=== PATIENT | female | born 2005 | race Caucasian/White ===

== ENCOUNTER 2024-03-24 01:10 | Emergency (ER) | payer OTHER, SELFPAY ==
[2024-03-24 01:13] VITALS: BP 145/86; PULSE 113; TEMP 36.6; O2SAT 99; BMI 20.7
[2024-03-24 01:18] VITALS: BP 145/86; O2SAT 100
--- NOTE | 2024-03-24 01:20 | ECG_ITS ---
The [facility] Test Date: 2024-03-24 Pat Name: TRAVON RODRIGUEZ Department: Room: - Gender: Female Transitional Care Manager: : 2005 Requested By: Jb Miller Order Number: [id number] Reading MD: GWENDOLYN MAS Measurements Intervals [place] Rate: 116 P: 80 TN: 132 QRS: 93 QRSD: 80 T: -50 QT: 334 QTc: 403 Interpretive Statements 1120 Sinus tachycardia [address] depression, can't exclude myocardial ischemia Electronically Signed On 03-24-2024 7:46:01 EST by GWENDOLYN MAS
[2024-03-24 01:30] VITALS: PULSE 115
--- NOTE | 2024-03-24 01:42 | ED_ITS ---
HPI HPI - General Adult General Chief complaint: Anxiety Stated complaint: chest pain Time Seen by Provider: 03/24/24 01:17 Source: patient Mode of arrival: walk-in Limitations: no limitations History of Present Illness HPI narrative: pt complains of chest pain and palpitations that began tonight. No known inciting event. No current fever or vomiting. She is currently on Cipro for UTI and pyelonephritis - she said that her urinary symptms are almost completely resolved. She has no cough or cold symptoms. No neck pain, back pain or abdominal pain. She takes Abilify daily and hydroxyzine as needed. Related Data Home Medications ?Medication ?Instructions ?Recorded ?Confirmed aripiprazole 5 mg tablet 5 mg PO DAILY 03/24/24 03/24/24 Allergies Allergy/AdvReac Type Severity Reaction Status Date / Time No Known Drug Allergies Allergy Verified 03/24/24 01:19 Opioid HPI Opioid Management Most Recent Opioid Data: No Data to Display Exam Narrative Exam Narrative: Nurses notes and vital signs reviewed and patient is not hypoxic. afebrile General: Very anxious. Skin: Warm, dry, no pallor noted. No rash. Eye: Pupils are equal, round and EOMI. No scleral icterus. Ears, Nose, Mouth, and Throat: Oral mucosa is moist Cardiovascular: Tachycardic. Respiratory: No accessory muscle use or respiratory distress. Lungs are clear to auscultation, no wheezing, rales or rhonchi Chest wall: No tenderness, crepitus or subcutaneous emphysema Back: No CVA tenderness Musculoskeletal: normal ROM, no calf or popliteal tenderness, no lower extremity edema/swelling GI: Abdomen is soft, non-distended. Normal bowel sounds. No masses appreciated. No tenderness to palpation. No rebound, guarding, or rigidity noted. Neurological: A&O x4. No cranial nerve dysfunction observed. No truncal ataxia. Moves all extremities. Sensation intact. Psychiatric: Cooperative and interactive. Normal mood and affect. Constitutional Vital Signs, click to edit/add: Last Vital Signs Temp 98 F 03/24/24 01:13 Pulse 113 H 03/24/24 01:13 Resp 18 03/24/24 01:13 BP 145/86 H 03/24/24 01:13 Pulse Ox 99 03/24/24 01:13 O2 Del Method Room Air 03/24/24 01:13 Course Vital Signs Vital signs: Vital Signs Temperature 98 F 03/24/24 01:13 Pulse Rate 113 H 03/24/24 01:13 Respiratory Rate 18 03/24/24 01:13 Blood Pressure 145/86 H 03/24/24 01:13 Pulse Oximetry 99 03/24/24 01:13 Oxygen Delivery Method Room Air 03/24/24 01:13 Temperature 98 F 03/24/24 01:13 Pulse Rate 113 H 03/24/24 01:13 Respiratory Rate 18 03/24/24 01:13 Blood Pressure 145/86 H 03/24/24 01:13 Pulse Oximetry 99 03/24/24 01:13 Oxygen Delivery Method Room Air 03/24/24 01:13 Medical Decision Making MDM Narrative Medical decision making narrative: Patient was placed on cardiac rehab nurse and EKG obtained. Blood drawn and sent for evaluation. The patient was given IV Zofran and 500 mL normal saline IV fluid bolus. She is also given a dose of oral Xanax. EKG is a sinus tachycardia with rightward axis and some subtle ischemic changes, likely due to the rate. On recheck at 0227 the patient reported resolution of her symptoms. HR remained 88-92. We discussed her symptoms, lab and ekg results and she was given reassurance. Discharged home with encouragement to stay hydrated, eat well and take her anxiolytic as needed. Lab Data Lab results reviewed: Yes I reviewed the patient's lab results Labs: Lab Results 03/24/24 Range/Units 01:38 WBC 10.7 (4.0-11.0) 10^3/uL RBC 4.72 (4.20-5.40) 10^6/uL Hgb 13.9 (12.0-16.0) g/dL Hct 40.1 (36.0-48.0) % MCV 85.0 (81.0-99.0) fL MCH 29.4 (26.7-34.0) pg MCHC 34.7 (29.9-35.2) g/dL RDW 11.8 (11.0-15.0) % Plt Count 370 (150-450) 10^3/uL MPV 9.6 (9.5-13.5) fL Neut % (Auto) 71.7 (43.0-75.0) % Lymph % (Auto) 18.8 L (20.5-60.0) % [place] % (Auto) 6.2 (1.7-12.0) % Eos % (Auto) 2.1 (0.9-7.0) % Baso % (Auto) 1.0 (0.2-2.0) % Neut # (Auto) 7.7 H (1.4-6.5) 10^3/uL Lymph # (Auto) 2.0 (1.2-3.8) 10^3/uL [place] # (Auto) 0.7 (0.3-0.8) 10^3/uL Eos # (Auto) 0.2 (0.0-0.7) 10^3/uL Baso # (Auto) 0.1 (0.0-0.1) 10^3/uL Abs Immat Gran (auto) 0.02 (0.00-0.03) 10^3/uL Imm/Tot Granulo (auto) 0.2 (0.0-0.5) % Sodium 139 (136-145) mmol/L Potassium 3.8 (3.5-5.1) mmol/L Chloride 105 (98-107) mmol/L Carbon Dioxide 19.4 L (21.0-32.0) mmol/L Anion Gap 18.4 BUN 13.0 (7.0-18.0) mg/dL Creatinine 1.19 H (0.55-1.02) mg/dL Est GFR ( Amer) >60 (>=60 mL/min/1.73m^2) Est GFR (Non-Af Amer) 58 L (>=60 mL/min/1.73m^2) BUN/Creatinine Ratio 10.9 Glucose 130 H (74-106) mg/dL Calcium 9.7 (8.5-10.1) mg/dL Total Bilirubin 0.6 (0.2-1.0) mg/dL AST 12 L (15-37) U/L ALT 12 L (14-59) U/L Alkaline Phosphatase 77 (46-116) U/L Total Protein 7.8 (6.4-8.2) g/dL Albumin 4.3 (3.4-5.0) g/dL Globulin 3.5 g/dL Albumin/Globulin Ratio 1.2 Serum HCG, Qual Negative (NEGATIVE) ECG Data Attestation: I personally reviewed and interpreted this ECG as follows: Interpretation: EKG interpretation: Emergency Department physician interpretation. Sinus tachycardia at 116bpm. Rightward axis, nonspecific T wave changes but no ST segment elevation or depression. Discharge Plan Discharge Chief Complaint: Anxiety Clinical Impression: Acute anxiety, Sinus tachycardia Patient Disposition: Home, Self-Care Time of Disposition Decision: 02:28 Prescriptions / Home Meds: No Action aripiprazole 5 mg tablet 5 mg PO DAILY Print Language: Georgian Instructions: Heart Palpitations (ED), Anxiety (ED) Referrals: Physician,Non-Staff, MD [Primary Care Provider] - 1 week
[2024-03-24 01:45] VITALS: PULSE 108
[2024-03-24 01:51] LABS: Basophils Absolute Auto 0.1 10^3/uL (0.0-0.1); Eosinophils Absolute Auto 0.2 10^3/uL (0.0-0.7); Eosinophils Percent Auto 2.1 % (0.9-7.0); Hematocrit 40.1 % (36.0-48.0); Hemoglobin 13.9 g/dL (12.0-16.0); Immature Granulocytes Abs Auto 0.02 10^3/uL (0.00-0.03); Immature Granulocytes Pct Auto 0.2 % (0.0-0.5); Lymphocytes Percent Auto 18.8 % (20.5-60.0); Mean Corpuscular HGB Conc 34.7 g/dL (29.9-35.2); Mean Corpuscular Hemoglobin 29.4 pg (26.7-34.0); Mean Platelet Volume 9.6 fL (9.5-13.5); Monocytes Absolute Auto 0.7 10^3/uL (0.3-0.8); Monocytes Percent Auto 6.2 % (1.7-12.0); Neutrophils Absolute Auto 7.7 10^3/uL (1.4-6.5); Neutrophils Percent Auto 71.7 % (43.0-75.0); Platelet Count 370 10^3/uL (150-450); Red Blood Count 4.72 10^6/uL (4.20-5.40); Red Cell Distribution Width 11.8 % (11.0-15.0); White Blood Count 10.7 10^3/uL (4.0-11.0)
[2024-03-24 01:57] LABS: HCG Qualitative NEGATIVE (NEGATIVE); Internal Control Within Normal Limits
[2024-03-24] MEDS: ALPRAZOLAM 0.5 MG TABLET PO (01:58)
[2024-03-24] MEDS: 0.9 % SODIUM CHLORIDE 500 ML IV (01:58)
[2024-03-24] MEDS: ONDANSETRON PF 4 MG/2 ML VIAL IV (01:58)
[2024-03-24 02:02] VITALS: PULSE 91
[2024-03-24 02:04] LABS: Alanine Aminotransferase 12 U/L (14-59); Albumin Globulin Ratio 1.2; Albumin Level 4.3 g/dL (3.4-5.0); Alkaline Phosphatase 77 U/L (46-116); Anion Gap 18.4; Aspartate Amino Transferase 12 U/L (15-37); BUN Creatinine Ratio 10.9; Bilirubin Total 0.6 mg/dL (0.2-1.0); Calcium 9.7 mg/dL (8.5-10.1); Carbon Dioxide 19.4 mmol/L (21.0-32.0); Chloride 105 mmol/L (98-107); Estimated GFR (African America >60 (>=60 mL/min/1.73m^2); Estimated GFR (Non-African Ame 58 (>=60 mL/min/1.73m^2); Globulin 3.5 g/dL; Glucose 130 mg/dL (74-106); Potassium 3.8 mmol/L (3.5-5.1); Sodium 139 mmol/L (136-145); Total Protein 7.8 g/dL (6.4-8.2)
[2024-03-24 02:15] VITALS: PULSE 87
[2024-03-24 02:31] LABS: D Dimer <0.19 mg/L FEU (<=0.59)
== END 2024-03-24 02:37 | disposition home or self-care (01) ==
PROVIDERS: Emergency Provider Emergency Medicine
DX: F41.9 Anxiety disorder, unspecified (principal); R00.0 Tachycardia, unspecified; Z87.440 Personal history of urinary (tract) infections
CPT/HCPCS: 36415; 80053; 84703; 85025; 85378; 93005; 96374; 99284; J2405

== ENCOUNTER 2024-03-27 19:36 | Emergency (ER) | payer OTHER, SELFPAY ==
[2024-03-27 19:44] VITALS: BP 140/90; PULSE 115; TEMP 37; O2SAT 99; BMI 28.3
[2024-03-27 20:08] LABS: Bilirubin Urine NEGATIVE (NEGATIVE); Blood Urine SMALL (NEGATIVE); Clarity Urine CLEAR (CLEAR); Color Urine LT. YELLOW (YELLOW); Glucose Urine UA NEGATIVE (NEGATIVE); Ketones Urine NEGATIVE (NEGATIVE); Leukocyte Esterase Urine NEGATIVE (NEGATIVE); Nitrite Urine NEGATIVE (NEGATIVE); Protein Urine NEGATIVE (NEG/TRACE); Urobilinogen Urine 0.2 EU/dL (0.2-1.0)
[2024-03-27 20:11] LABS: Urine Microscopic Indicated YES
--- NOTE | 2024-03-27 20:13 | PC.NURSE ---
patient in waiting room became SOB and shaky. Patient has elevated HR of 130. Lung sounds clear. pulse ox 96%.
[2024-03-27 20:19] LABS: Bacteria Urine TRACE #/HPF (NONE SEEN); Mucus Urine NONE SEEN (NONE SEEN); Squamous Epithelial Cell Urine FEW #/LPF (NONE/RARE)
[2024-03-27 20:20] LABS: Cast Seen? NONE SEEN #/LPF (NONE SEEN); Crystals Seen? None Seen #/HPF (None Seen); Urine Culture Indicated NO
--- NOTE | 2024-03-27 20:29 | CT_ITS ---
The [address] [address] Patient Name: TRAVON RODRIGUEZ MRN: [id number] date: 2005 Sex: F Assigned Patient Location: ER Current Patient Location: ER Accession/Order Number: [id number] Exam Date: 03/27/2024 20:57 Report Date: 03/27/2024 21:55 At the request of: ISHAAN MARKER Procedure: CT abdomen pelvis wo con CT ABDOMEN PELVIS WITHOUT CONTRAST HISTORY: Left flank pain. COMPARISON: None. TECHNIQUE: Thin section axial CT images were obtained from the lung bases to the pubis symphysis. This CT exam was performed using one or more of the following dose reduction techniques: Automated exposure control, adjustment of the mA and/or kV according to patient size, or use of iterative reconstruction technique. Thin section coronal and sagittal images were reconstructed from the axial data set. All images were reviewed and interpreted. CONTRAST: None. FINDINGS: Assessment of solid organs, bowel and vasculature is limited without the benefit of IV contrast. LUNG BASES: The lung bases are clear. GE JUNCTION AND STOMACH: Negative. No hiatal hernia. LIVER: Negative. GALLBLADDER AND BILIARY TREE: Normal gallbladder. SPLEEN: Negative. PANCREAS: Negative. ADRENALS: Negative. KIDNEYS AND URETERS: Negative. No urinary tract calculi or hydronephrosis. No renal masses or cysts are evident. SMALL BOWEL: Negative. No enteritis or obstruction. LARGE BOWEL: Scattered mild colonic stool. There may be some scattered diverticulosis. No colitis is seen or bowel distention or obstruction. APPENDIX: No active disease with normal appendix. AORTA: The abdominal aorta is normal size. IVC: Negative. LYMPH NODES: There is no lymphadenopathy. BLADDER: Normal bladder. BONES: Slight convex left curvature of the lower lumbar spine. Osseous structures and joints otherwise normal. COMMENTS: No ascites or free air or loculated fluid. Pelvic structures reproductive organs are unremarkable on this noncontrast study for patient age. CT/CT abdomen pelvis wo con IMPRESSION: 1. No acute findings or abnormality to explain left-sided pain. 2. No urolithiasis or hydronephrosis. These imaging findings do not exclude additional clinically significant abnormalities. This report should be interpreted in the context of clinical information including patient symptoms and available laboratory findings. Follow-up imaging or other interventions may be appropriate, if indicated by your clinical impression. Electronically authenticated by: IDALIA MAKI Date: 03/27/2024 21:55
--- NOTE | 2024-03-27 20:31 | ECG_ITS ---
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
[2024-03-27 20:38] LABS: HCG Qualitative Urine* NEGATIVE (NEGATIVE); Internal Control Within Normal Limits
--- NOTE | 2024-03-27 20:46 | ED_ITS ---
HPI HPI - General Adult General Chief complaint: Chest Pain Stated complaint: FLANK PAIN/FAST HR Time Seen by Provider: 03/27/24 20:06 Source: patient Mode of arrival: walk-in History of Present Illness HPI narrative: This 18-year-old female presents for evaluation of multiple complaints. The patient was recently seen at [facility] and diagnosed with a kidney infection. She was placed on Keflex at that time and did not clinically improve and was then seen at urgent care and placed on Cipro. Since that time she has been having episodes of tachycardia and palpitations. She presents today with p alpitations and left flank pain. She also states there has been some blood in her urine. She recently took Plan B but has had multiple negative test. She was seen in this emergency department recently and had a negative workup. She was tachycardic at that time and referred to outpatient medicine for further evaluation of the tachycardia. She does admit to tobacco use. She has no nausea or vomiting. She denies that she has had any fever but is shaky. Her boyfriend states at times she has spasms of her chest and arms. The patient is from the [facility] but is living locally with her parents at this time due to her medical issues. She admits to some light vaginal discharge but denies any itching or odor. Additionally the patient has been experiencing episodes of diarrhea when she uses the bathroom to urinate. She states it is dark brown in color. She denies any dizziness or syncope. She has no lower extremity pain or swelling. She does admit to tobacco use but denies that she is on control. Related Data Home Medications ?Medication ?Instructions ?Recorded ?Confirmed aripiprazole 5 mg tablet 5 mg PO DAILY 03/24/24 03/24/24 Allergies Allergy/AdvReac Type Severity Reaction Status Date / Time ciprofloxacin (From Cipro) Allergy Unknown Anxiety Verified 03/27/24 19:44 Opioid HPI Opioid Management Most Recent Opioid Data: Last Pain Scale 4 03/27/24 21:33 03/27/24 Review of Systems ROS Status of ROS 10 or more systems reviewed and unremark able except as noted in history and below PFSH PFSH Social History Little interest or pleasure in doing things: not at all Feeling down, depressed, or hopeless: not at all Exam Narrative Exam Narrative: Vital signs and Nursing Notes reviewed: Is afebrile, she is tachycardic with pulse of 115, pressure is mildly elevated, she is not hypoxic with pulse ox of 99% on room air General: Awake, alert, oriented, thin anxious female, no respiratory distress HEENT: Normocephalic atraumatic, mucous membranes are moist and pink, eyes are clear, normal conjunctiva, vision is grossly intact, posterior pharynx is normal in appearance. Chest: Lungs are clear to auscultation with good air entry, there is no wheezing rhonchi or rales appreciated no accessory muscle use, patient is speaking in complete sentences-no chest wall tenderness to palpation CVS: Regular rate and rhythm S1-S2, acute cardiac at 110 on exam no murmurs rubs or gallops, pulses are brisk and equal bilaterally ABD: Soft, nondistended, this in the left lower lumbar region and left lower quadrant of the abdomen without rebound guarding rigidity, no pulsatile masses appreciated Extremities: Moving all extremities, no lower extremity tenderness or swelling noted, negative Homans' sign, pulses are brisk and equal bilaterally Skin: Normal in appearance without rash,pallor, petechiae or purpura Neuro: No focal deficits Psych: anxious, tearful at times, tremulous at times Constitutional Vital Signs, click to edit/add: Last Vital Signs Temp 98.6 F 03/27/24 19:44 Pulse 70 03/27/24 20:50 Resp 23 H 03/27/24 20:50 BP 140/90 03/27/24 19:44 Pulse Ox 99 03/27/24 19:44 O2 Del Method Room Air 03/27/24 19:44 Course Vital Signs Vital signs: Vital Signs Temperature 98.6 F 03/27/24 19:44 Pulse Rate 115 H 03/27/24 19:44 Respiratory Rate 18 03/27/24 19:44 Blood Pressure 140/90 03/27/24 19:44 Pulse Oximetry 99 03/27/24 19:44 Oxygen Delivery Method Room Air 03/27/24 19:44 Temperature 98.6 F 03/27/24 19:44 Pulse Rate 70 03/27/24 20:50 Respiratory Rate 23 H 03/27/24 20:50 Blood Pressure 140/90 03/27/24 19:44 Pulse Oximetry 99 03/27/24 19:44 Oxygen Delivery Method Room Air 03/27/24 19:44 Medical Decision Making MDM Narrative Medical decision making narrative: This 18-year-old female who was seen in this emergency department recently for palpitations presents for reevaluation stating that her heart is beating fast, indeed her pulse was 115 at triage also complaining of left flank pain and diarrhea. She has not had a fever. She recently was treated with for a kidney infection with Keflex which did not work and she was transitioned to Cipro. At her last ER visit several days ago she stated that her urinary symptoms were resolving but today she had recurrent blood in her urine. She was given Xanax for her symptoms while in the emergency department earlier this week which also helped her. She is on Abilify and was also started on Prozac earlier today. The patient's physical exam is benign with some mild tenderness in her left lower flank and left lower quadrant of her abdomen. The patient had recently taken a Plan B. She has had multiple negative test since that time. EKG done upon arrival was a sinus rhythm at 77 bpm with no acute findings. Her urine test was ordered from triage and is negative. Her urine is negative for infection today. She has a normal white count and hemoglobin. She has normal electrolytes. Troponin and D-dimer were also ordered due to her complaint of palpitations with history of tobacco use. These are both normal. Noncontrast CT scan of the abdomen pelvis was ordered to rule out kidney stone or kidney infection and is negative for acute findings. The results of her labs and CT scan were discussed with her. She now feels that her symptoms are likely related to anxiety. We discussed the matization disorder as well as general anxiety disorder. She does have follow-up with a family physician in the [facility]. I encouraged her to rest drink plenty of fluids and return the emergency department as needed for ongoing or worsening symptoms. She will be given a prescription for Bentyl for her diarrhea. Medical Records Medical records reviewed: Yes I reviewed the patient's medical records Lab Data Lab results reviewed: Yes I reviewed the patient's lab results Labs: Lab Results 03/27/24 03/27/24 Range/Units 19:50 21:29 WBC 11.1 H (4.0-11.0) 10^3/uL RBC 4.92 (4.20-5.40) 10^6/uL Hgb 14.5 (12.0-16.0) g/dL Hct 41.9 (36.0-48.0) % MCV 85.2 (81.0-99.0) fL MCH 29.5 (26.7-34.0) pg MCHC 34.6 (29.9-35.2) g/dL RDW 11.7 (11.0-15.0) % Plt Count 311 (150-450) 10^3/uL MPV 9.4 L (9.5-13.5) fL Neut % (Auto) 71.9 (43.0-75.0) % Lymph % (Auto) 19.7 L (20.5-60.0) % [place] % (Auto) 5.1 (1.7-12.0) % Eos % (Auto) 2.1 (0.9-7.0) % Baso % (Auto) 0.9 (0.2-2.0) % Neut # (Auto) 8.0 H (1.4-6.5) 10^3/uL Lymph # (Auto) 2.2 (1.2-3.8) 10^3/uL [place] # (Auto) 0.6 (0.3-0.8) 10^3/uL Eos # (Auto) 0.2 (0.0-0.7) 10^3/uL Baso # (Auto) 0.1 (0.0-0.1) 10^3/uL Abs Immat Gran (auto) 0.03 (0.00-0.03) 10^3/uL Imm/Tot Granulo (auto) 0.3 (0.0-0.5) % D-Dimer <0.19 (<=0.59) mg/L FEU Sodium 141 (136-145) mmol/L Potassium 3.9 (3.5-5.1) mmol/L Chloride 105 (98-107) mmol/L Carbon Dioxide 24.7 (21.0-32.0) mmol/L Anion Gap 15.2 BUN 15.0 (7.0-18.0) mg/dL Creatinine 0.94 (0.55-1.02) mg/dL Est GFR ( Amer) >60 (>=60 mL/min/1.73m^2) Est GFR (Non-Af Amer) >60 (>=60 mL/min/1.73m^2) BUN/Creatinine Ratio 16.0 Glucose 91 (74-106) mg/dL Lactate 1.3 (0.4-2.0) mmol/L Calcium 9.7 (8.5-10.1) mg/dL Total Bilirubin 1.0 (0.2-1.0) mg/dL AST 17 (15-37) U/L ALT 13 L (14-59) U/L Alkaline Phosphatase 70 (46-116) U/L Troponin I High Sens 4.4 (4.0-51.3) pg/mL Total Protein 8.1 (6.4-8.2) g/dL Albumin 4.6 (3.4-5.0) g/dL Globulin 3.5 g/dL Albumin/Globulin Ratio 1.3 Urine Color Lt. yellow (YELLOW) Urine Clarity Clear (CLEAR) Urine pH 6.0 (5.0-9.0) Ur Specific [place] 1.020 (1.005-1.025) Urine Protein Negative (NEG/TRACE) mg/dL Urine Glucose (UA) Negative (NEGATIVE) mg/dL Urine Ketones Negative (NEGATIVE) mg/dL Urine Occult Blood Small A (NEGATIVE) Urine Nitrite Negative (NEGATIVE) Urine Bilirubin Negative (NEGATIVE) Urine Urobilinogen 0.2 (0.2-1.0) EU/dL Ur Leukocyte Esterase Negative (NEGATIVE) Urine RBC 2-5 A (0-2) #/HPF Urine WBC 2-5 A (NONE SEEN) #/HPF Ur Squamous Epith Cells Few A (NONE/RARE) #/LPF Urine Crystals None seen (None Seen) #/HPF Urine Bacteria Trace A (NONE SEEN) #/HPF Urine Casts None seen (NONE SEEN) #/LPF Urine Mucus None seen (NONE SEEN) Ur Culture Indicated? No Urine HCG, Qual Negative (NEGATIVE) ECG Data Attestation: I personally reviewed and interpreted this ECG as follows: (Sinus rhythm at 77 bpm, normal axis, normal intervals, no acute ST segment elevation or T wave inversion) Discharge Plan Discharge Chief Complaint: Chest Pain Clinical Impression: Acute anxiety, Sinus tachycardia, Flank pain, Diarrhea Patient Disposition: Home, Self-Care Time of Disposition Decision: 22:32 Condition: Good Prescriptions / Home Meds: No Action aripiprazole 5 mg tablet 5 mg PO DAILY Print Language: Wallisian Instructions: Acute Diarrhea (ED), Flank Pain (ED), Anxiety (ED) Referrals: Physician,Non-Staff, MD [Primary Care Provider] - 1 week
[2024-03-27 20:49] VITALS: PULSE 76
[2024-03-27 20:50] VITALS: PULSE 70
[2024-03-27 20:54] VITALS: PULSE 99
[2024-03-27 21:33] LABS: Basophils Absolute Auto 0.1 10^3/uL (0.0-0.1); Basophils Percent Auto 0.9 % (0.2-2.0); Eosinophils Absolute Auto 0.2 10^3/uL (0.0-0.7); Eosinophils Percent Auto 2.1 % (0.9-7.0); Hematocrit 41.9 % (36.0-48.0); Hemoglobin 14.5 g/dL (12.0-16.0); Immature Granulocytes Abs Auto 0.03 10^3/uL (0.00-0.03); Immature Granulocytes Pct Auto 0.3 % (0.0-0.5); Lymphocytes Absolute Auto 2.2 10^3/uL (1.2-3.8); Lymphocytes Percent Auto 19.7 % (20.5-60.0); Mean Corpuscular HGB Conc 34.6 g/dL (29.9-35.2); Mean Corpuscular Hemoglobin 29.5 pg (26.7-34.0); Mean Corpuscular Volume 85.2 fL (81.0-99.0); Mean Platelet Volume 9.4 fL (9.5-13.5); Monocytes Absolute Auto 0.6 10^3/uL (0.3-0.8); Monocytes Percent Auto 5.1 % (1.7-12.0); Neutrophils Percent Auto 71.9 % (43.0-75.0); Platelet Count 311 10^3/uL (150-450); Red Blood Count 4.92 10^6/uL (4.20-5.40); Red Cell Distribution Width 11.7 % (11.0-15.0); White Blood Count 11.1 10^3/uL (4.0-11.0)
[2024-03-27] MEDS: KETOROLAC TROMETHAMINE 30 MG/ML VIAL IVP (21:33)
[2024-03-27] MEDS: 0.9 % SODIUM CHLORIDE 1,000 ML 1000 ML IV (21:34)
[2024-03-27 21:49] LABS: Alanine Aminotransferase 13 U/L (14-59); Albumin Globulin Ratio 1.3; Albumin Level 4.6 g/dL (3.4-5.0); Alkaline Phosphatase 70 U/L (46-116); Anion Gap 15.2; Aspartate Amino Transferase 17 U/L (15-37); Calcium 9.7 mg/dL (8.5-10.1); Carbon Dioxide 24.7 mmol/L (21.0-32.0); Chloride 105 mmol/L (98-107); Estimated GFR (African America >60 (>=60 mL/min/1.73m^2); Estimated GFR (Non-African Ame >60 (>=60 mL/min/1.73m^2); Globulin 3.5 g/dL; Glucose 91 mg/dL (74-106); Potassium 3.9 mmol/L (3.5-5.1); Sodium 141 mmol/L (136-145); Total Protein 8.1 g/dL (6.4-8.2)
[2024-03-27 21:51] LABS: D Dimer <0.19 mg/L FEU (<=0.59); Lactate/Lactic Acid 1.3 mmol/L (0.4-2.0)
[2024-03-27 21:52] LABS: Troponin I High Sensitivity 4.4 pg/mL (4.0-51.3)
[2024-03-27 22:27] VITALS: BP 142/84
== END 2024-03-27 22:40 | disposition home or self-care (01) ==
PROVIDERS: Emergency Provider Emergency Medicine
DX: R10.9 Unspecified abdominal pain (principal); R19.7 Diarrhea, unspecified; R00.0 Tachycardia, unspecified; F41.9 Anxiety disorder, unspecified
CPT/HCPCS: 36415; 74176; 80053; 81001; 83605; 84484; 84703; 85025; 85378; 87493; 93005; 96374; 99285; J1885

== ENCOUNTER 2024-04-11 21:51 | Emergency (ER) | payer OTHER, SELFPAY ==
[2024-04-11 21:58] VITALS: BP 151/92; PULSE 87; TEMP 36.7; O2SAT 98; BMI 19.9
--- OUTSIDE RECORDS SUMMARY | 2024-04-11 21:58 | XMS_ITS | CCD ---
Author Organization [facility] [place] [facility] Care Team Providers Care Tablet Repair Name Role Phone AYAAN CASTRO Consulting Unavailable AYAAN CASTRO Admitting Unavailable AYAAN CASTRO Attending Unavailable MISC, DOCTOR Primary Care Unavailable MISC, DOCTOR Admitting Unavailable MISC, DOCTOR Attending Unavailable MISC, DOCTOR Primary Care Unavailable MISC, DOCTOR Consulting Unavailable Required, No Pcp Unavailable Unavailable Edna Worley Unavailable Fred Claire Unavailable Unavailable KAROLYI, MARISSA A Attending Unavailable KAROLYI, MARISSA A Referring Unavailable KAROLYI, MARISSA A Primary Care Unavailable KARKARENI, MARISSA A Referring Unavailable KAROLYI, MARISSA A Primary Care Unavailable JULIUS CASTRO Referring Unavailable Unavailable Primary Care Provider Unavailapple e RONEY ISSA Attending Unavailable Antionette Benitez DO Primary Care Provider ANTIONETTE BENITEZ Referring Unavailable ANTIONETTE BENITEZ Primary Care Unavailable ANTIONETTE BENITEZ Attending Unavailable Allergies Allergy Classification Reported Allergen(s) Allergy Type Date of Onset Reaction(s) Facility (2 sources) Ciprofloxacin; Translations: [CIPROFLOXACIN] Drug Allergy 04-05-2024 Other: See Comments [facility] Medications Current Medications Medication Drug Class(es) Dates Sig (Normalized) Sig (Original) ARIPiprazole 5 mg oral tablet (1 source) Atypical Antipsychotic Start: 04-02-2024 take 1 tablet by mouth once daily at bedtime ARIPiprazole (ABILIFY) 5 mg tablet Take 5 mg by mouth daily at bedtime. 04/02/2024 Active bacitracin 0.5 unt/mg topical ointment (1 source) Start: 12-21-2021 bacitracin 500 units/g topical ointment ; 1 application topically 2 times a day - to Leg Quantity: 1 Refills: 0 Ordered: 21-Dec-2021 Edna Worley Start: 21-Dec-2021 Generic Substitution Allowed cephalexin 500 mg oral capsule (4 sources) Cephalosporin Antibacterial Start: 03-16-2024 End: 03-26-2024 take 1 capsule by mouth four times daily cephalexin (Keflex) 500 MG capsule Take 1 capsule (500 mg) by mouth 4 times daily for 10 days. 40 capsule 03/16/2024 03/26/2024 Active Start: 03-16-2024 End: 03-16-2024 take 500 mg by mouth once 500 mg, Oral, Once, On Sat 1 05/16/23 at 0620, For 1 dose, Suspected Indication (Select all that apply): Urinary Tract Infection FLUoxetine 10 mg oral capsule (2 sources) Serotonin Reuptake Inhibitor Start: 03-27-2024 take 1 capsule by mouth once FLUoxetine (PROZAC) 10 mg capsule Take 1 capsule by mouth every afternoon. 03/27/2024 Active take 3 capsules by mouth once da elieser PROzac 20 mg oral capsule ; 60 milligram(s) orally once a day Quantity: 0 Refills: 0 Ordered: 17-Dec-2021 John Garcia Generic Substitution Allowed hydrOXYzine hydrochloride 25 mg oral tablet (2 sources) Antihistamine take 1 tablet by mouth every twelve hours as needed hydrOXYzine HCl (ATARAX) 25 mg tablet Take 25 mg by mouth two times a day as needed. Active take 1 tablet by maico th twice daily as needed Atarax 50 mg oral tablet ; 50 milligram( s) orally 2 times a day, As Needed Quantity: 0 Refills: 0 Ordered: 17-Dec-2021 John Garcia Status: Discontinued Generic Substitution Allowed mometasone furoate 1 mg/ml topical cream (1 source) Corticosteroid Start: 11-30-2023 mometasone (ELOCON) 0.1 % cream Apply 1 Application to affected area. 11/30/2023 Active Multiple Vitamins with Minerals oral tablet (1 source) Start: 12-21-2021 take 1 tablet by mouth once daily Multiple Vitamins with Minerals oral tablet ; 1 tab(s) orally once a day Quantity: 30 Refills: 0 Ordered: 21-Dec-2021 Edna Worley Start: 21-Dec-2021 Generic Substitution Allowed phenazopyridine hydrochloride 200 mg delayed release oral tablet (4 sources) Start: 03-16-2024 End: 03-19-2024 take 1 tablet by mouth three times daily as needed for muscle spasms phenazopyridine (Pyridium) 200 MG tablet Take 1 tablet (200 mg) by mouth 3 times daily as needed for bladder spasms for up to 3 days. 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] Onset: 11-30-2023 Chronic Anxiety disorders (2 sources) Anxiety disorder, unspecified; Translations: [Anxiety] Onset: 02-26-2016 04-05-2024 Chronic Cardiac dysrhythmias (1 source) Palpitations; Translations: [Palpitations] Onset: 04-05-2024 Episodic Genitourinary symptoms and ill-defined conditions (2 sources) Bacteriuria; Translations: [Other nonspecific findings on examination of urine] 12-17-2021 Episodic Immunizations and screening for infectious disease (3 sources) Encounter for immunization; Translations: [Encounter for screening for human papillomavirus (HPV)] Onset: 11-30-2023 Episodic Miscellaneous mental health disorders (6 sources) Eating disorder, unspecified; Translations: [Eating disorder] Onset: 08-20-2018 12-18-2021 Chronic Mood disorders (3 sources) Depressive disorder; Translations: [Depressive disorder, not elsewhere classified] 12-17-2021 Chronic Mood disorders (1 source) Mood disorders 12-18-2021 Open wounds of extremities (1 source) Laceration of thigh; Translations: [Open wound of hip and thigh, without mention of complication] 12-17-2021 Episodic Other circulatory disease (1 source) Elevated blood-pressure reading, without diagnosis of hypertension; Translations: [Elevated blood pressure reading without diagnosis of hypertension] Onset: 04-05-2024 Episodic Other gastrointestinal disorders (1 source) Acute diarrhea 12-17-2021 Episodic Personality disorders (1 source) Borderline personality disorder; Translations: [Borderline personality disorder] Onset: 04-05-2024 04-05-2024 Chronic Poisoning by other medications and drugs (1 source) Poisoning by unspecified drug or medicinal substance 12-17-2021 Episodic Suicide and intentional self-inflicted injury (4 sources) Poisoning by other drugs, medicaments and biological substances, intentional self-harm, initial encounter; Translations: [PSN OTH RX MED BIO SUBS SF-HRM INIT] Onset: 08-15-2018 Unclassified (2 sources) SA T14.91XA. 12-18-2021 Comment on above: SA T14.91XA. Unclassified (1 source) Laceration of right thigh 12-17-2021 Unclassified (1 source) Eating disorder, unspecified type 12-18-2021 Unclassified (1 source) Rash Onset: 11-30-2023 Urinary tract infections (8 sources) Acute cystitis; Translations: [Acute cystitis with hematuria] Onset: 03-16-2024 03-16-2024 Episodic Past or Other Problems Problem Classification Problem Date Documented Da te Episodic/Chronic Suicide and intentional self-inflicted injury (1 source) Personal history of self-harm; Translations: [PERSONAL HISTORY OF SELF-HARM] Onset: 08-20-2018 Episodic Unclassified (1 source) SA T14.91XA 12-18-2021 Comment on above: SA T14.91XA Results Test Name Value Interpretation Reference Range Facility CBC panel Auto (Bld)on 04-05 Erythrocyte distribution width (RBC) [Ratio] 11.9 % Normal 11.5-15.0 [facility] Comment on above: Order Comment: Speci men Type: BLOOD SPECIMEN Ordering Facility: [facility] Address: [address] [place] [address] Performed By: #### 5 8410-2 #### [facility] CLIA [id number] [address] [place] [address] [place] Hematocrit (Bld) [Volume fraction] 42.5 % Normal 36.0-46.0 [facility] Comment on above: Order Comment: Speci men Type: BLOOD SPECIMEN Ordering Facility: [facility] Address: [address] [place] [address] Performed By: #### 5 8410-2 #### [facility] CLIA [id number] [address] [place] [address] [place] Hemoglobin (Bld) [Mass/Vol] 14.5 g/dL Normal 11.5-15.5 [facility] Comment on above: Order Comment: Speci men Type: BLOOD SPECIMEN Ordering Facility: [facility] Address: [address] [place] [address] Performed By: #### 5 8410-2 #### [facility] CLIA [id number] [address] [place] [address] [place] MCH (RBC) [Entitic mass] 29.5 pg Normal 26.0-34.0 [facility] Comment on above: Order Comment: Speci men Type: BLOOD SPECIMEN Ordering Facility: [facility] Address: [address] [place] [address] Performed By: #### 5 8410-2 #### [facility] CLIA [id number] [address] [place] [address] [place] MCHC (RBC) [Mass/Vol] 34.1 g/dL Normal 30.5-36.0 [facility] Comment on above: Order Comment: Speci men Type: BLOOD SPECIMEN Ordering Facility: [facility] Address: [address] [place] [address] Performed By: #### 5 8410-2 #### [facility] CLIA [id number] [address] [place] [address] [place] MCV (RBC) [Entitic vol] 86.4 fL Normal 80.0-100.0 [facility] Comment on above: Order Comment: Speci men Type: BLOOD SPECIMEN Ordering Facility: [facility] Address: [address] [place] [address] Performed By: #### 5 8410-2 #### [facility] CLIA [id number] [address] [place] [address] [place] Nucleated RBC (Bld) [#/Vol] 10*3/uL Normal <0.01 [facility] Comment on above: Order Comment: Speci men Type: BLOOD SPECIMEN Ordering Facility: [facility] Address: [address] [place] [address] Performed By: #### 5 8410-2 #### [facility] CLIA [id number] [address] [place] [address] [place] Platelet mean volume (Bld) [Entitic vol] 9.9 fL Normal 9.0-12.7 [facility] Comment on above: Order Comment: Speci men Type: BLOOD SPECIMEN Ordering Facility: [facility] Address: [address] [place] [address] Performed By: #### 5 8410-2 #### [facility] CLIA [id number] [address] [place] [address] [place] Platelets (Bld) [#/Vol] 412 10*3/uL High 150-400 [facility] Comment on above: Order Comment: Speci men Type: BLOOD SPECIMEN Ordering Facility: [facility] Address: [address] [place] [address] Performed By: #### 5 8410-2 #### [facility] CLIA [id number] [address] [place] [address] [place] RBC (Bld) [#/Vol] 4.92 10*6/uL Normal 3.90-5.20 [facility] Comment on above: Order Comment: Speci men Type: BLOOD SPECIMEN Ordering Facility: [facility] Address: [address] [place] [address] Performed By: #### 5 8410-2 #### [facility] CLIA [id number] [address] [place] [address] [place] WBC (Bld) [#/Vol] 9.19 10*3/uL Normal 3.70-11.00 [facility] Comment on above: Order Comment: Speci men Type: BLOOD SPECIMEN Ordering Facility: [facility] Address: [address] [place] [address] Performed By: #### 5 8410-2 #### [facility] CLIA [id number] [address] [place] [address] [place] [address] [place] CNPFranny 04-05-2024 CNPN Telephone (FMIUNI) TRAVON STALLWORTH ([id number]) 1 F Date Time Provider Department 04/05/24 ANTIONETTE BENITEZ FMIUNI During your visit today, we recorded the following information about you: Vanda Fritz 04/05/2024 3:49 PM Signed Jen [facility] [address] [facility] office Needing to bee set up with a 48 hour Holter Monitor Please call the patient at the home number confirmed by the office Benjy Gordon 04/08/2024 9:31 AM Signed Called and scheduled patient for 04/10. Allergies As of Date: 04/05/2024 Noted Allergy Reaction CIPROFLOXACIN 04/05/2024 14 - Other: See Comments Comments: Heart palp, hard time breathing, shaking Date Reviewed: Never Reviewed Reason for Visit: Future Appointment [256] Cmt: Holter Monitor Prescriptions as of 04/08/2024 - hydrOXYzine HCl (ATARAX) 25 mg tablet Take 25 mg by mouth two times a day as needed. - FLUoxetine (PROZAC) 10 mg capsule Take 1 capsule by mouth every afternoon. - ARIPiprazole (ABILIFY) 5 mg tablet Take 5 mg by mouth daily at bedtime. - mometasone (ELOCON) 0.1 % cream Apply 1 Application to affected area. Problem List As Of Date 04/05/2024 Noted Resolved Anxiety [F41.9] 02/26/2016 Borderline personality disorder (HCC) [F60.3] 04/05/2024 Encounter Status:Closed by BENJY GORDON on 04/08/24 Normal [facility] Comprehensive metabolic 2000 panelon 04-05-2024 Albumin [Mass/Vol] 5.2 g/dL High 3.9-4.9 [facility] Comment on above: Order Comment: Speci men Type: BLOOD SPECIMEN Ordering Facility: [facility] Address: [address] [place] [address] Performed By: #### 3 024-7, TSHRF, #### [facility] CLIA [id number] [address] [place] [address] [place] ALP [Catalytic activity/Vol] 70 U/L Normal 34-123 [facility] Comment on above: Order Comment: Speci men Type: BLOOD SPECIMEN Ordering Facility: [facility] Address: [address] [place] [address] Performed By: #### 3 024-7, TSHRF, 64686-4 #### [facility] CLIA [id number] [address] [place] [address] [place] ALT [Catalytic activity/Vol] 12 U/L Normal 7-38 [facility] Comment on above: Order Comment: Speci men Type: BLOOD SPECIMEN Ordering Facility: [facility] Address: [address] [place] [address] Performed By: #### 3 024-7, TSHRF, 71464-2 #### [facility] CLIA [id number] [address] [place] [address] [place] Anion gap [Moles/Vol] 13 mmol/L Normal 8-15 [facility] Comment on above: Order Comment: Speci men Type: BLOOD SPECIMEN Ordering Facility: [facility] Address: [address] [place] [address] Performed By: #### 3 024-7, TSHRF, 70251-5 #### [facility] CLIA [id number] [address] [place] [address] [place] AST [Catalytic activity/Vol] 18 U/L Normal 13-35 [facility] Comment on above: Order Comment: Speci men Type: BLOOD SPECIMEN Ordering Facility: [facility] Address: [address] [place] [address] Performed By: #### 3 024-7, TSHTANNER, #### [facility] CLIA [id number] [address] [place] [address] [place] Bilirubin [Mass/Vol] 0.5 mg/dL Normal 0.2-1.3 [facility] Comment on above: Order Comment: Speci men Type: BLOOD SPECIMEN Ordering Facility: [facility] Address: [address] [place] [address] Performed By: #### 3 024-7, TSHTANNER, #### [facility] CLIA [id number] [address] [place] [address] [place] Calcium [Mass/Vol] 10.3 mg/dL High 8.5-10.2 [facility] Comment on above: Order Comment: Speci men Type: BLOOD SPECIMEN Ordering Facility: [facility] Address: [address] [place] [address] Performed By: #### 3 024-7, TSHRF, #### [facility] CLIA [id number] [address] [place] [address] [place] Chloride [Moles/Vol] 103 mmol/L Normal 98-107 [facility] Comment on above: Order Comment: Speci men Type: BLOOD SPECIMEN Ordering Facility: [facility] Address: [address] [place] [address] Performed By: #### 3 024-7, TSHRF, #### [facility] CLIA [id number] [address] [place] [address] [place] CO2 [Moles/Vol] 25 mmol/L Normal 22-30 [facility] Comment on above: Order Comment: Speci men Type: BLOOD SPECIMEN Ordering Facility: [facility] Address: [address] [place] [address] Performed By: #### 3 024-7, TACOS, #### [facility] CLIA [id number] [address] [place] [address] [place] Creatinine [Mass/Vol] 0.93 mg/dL Normal 0.58-0.96 [facility] Comment on above: Order Comment: Speci men Type: BLOOD SPECIMEN Ordering Facility: [facility] Address: [address] [place] [address] Performed By: #### 3 024-7, [facility], #### [facility] CLIA [id number] [address] [place] [address] [place] Creatinine and Glomerular filtration rate.predicted panel (S/P/Bld) 90 mL/min/1.73m??? Normal >=60 [facility] Comment on above: Order Comment: Speci men Type: BLOOD SPECIMEN Ordering Facility: [facility] Address: [address] [place] [address] Result Comment: Faustina mated Glomerular Filtration Rate (eGFR) is calculated using the 2020 CKD-EPI creatinine equation. This equation utilizes serum creatinine, sex, and age as parameters. The creatinine assay has traceable calibration to isotope dilution-mass spectrometry. Refer to KDIGO guidelines for clinical interpretation. In patients with unstable renal function, e.g. those with acute kidney injury, the eGFR may not accurately reflect actual GFR. Performed By: #### 3 024-7, KADEN, #### [facility] CLIA [id number] [address] [place] [address] [place] Glucose [Mass/Vol] 107 mg/dL High 74-99 [facility] Comment on above: Order Comment: Geei men Type: BLOOD SPECIMEN Ordering Facility: [facility] Address: [address] [place] [address] Result Comment: The [place] [employer] (ADA) provides guidance for cutoff values for fasting glucose and random glucose. The ADA defines fasting as no caloric intake for at least 8 hours. Fasting plasma glucose results between 100 to 125 mg/dL indicate increased risk for diabetes (prediabetes). Fasting plasma glucose results greater than or equal to 126 mg/dL meet the criteria for diagnosis of diabetes. In the absence of unequivocal hyperglycemia, results should be confirmed by repeat testing. In a patient with classic symptoms of hyperglycemia or hyperglycemic crisis, random plasma glucose results greater than or equal to 200 mg/dL meet the criteria for diagnosis of diabetes. Reference: Standards of Medical Care in Diabetes 2016, [place] [employer]. Diabetes Care. 2016.39(Suppl 1). Performed By: #### 3 024-7, TSHRF, 89786-1 #### [facility] CLIA [id number] [address] [place] [address] [place] Potassium [Moles/Vol] 4.4 mmol/L Normal 3.7-5.1 [facility] Comment on above: Order Comment: Speci men Type: BLOOD SPECIMEN Ordering Facility: [facility] Address: [address] [place] [address] Performed By: #### 3 024-7, TSHRF, #### [facility] CLIA [id number] [address] [place] [address] [place] Protein [Mass/Vol] 7.7 g/dL Normal 6.3-8.0 [facility] Comment on above: Order Comment: Speci men Type: BLOOD SPECIMEN Ordering Facility: [facility] Address: [address] [place] [address] Performed By: #### 3 024-7, TSHRF, 52522-1 #### [facility] CLIA [id number] [address] [place] [address] [place] Sodium [Moles/Vol] 141 mmol/L Normal 136-144 [facility] Comment on above: Order Comment: Speci men Type: BLOOD SPECIMEN Ordering Facility: [facility] Address: [address] [place] [address] Performed By: #### 3 024-7, TSHRF, 67389-8 #### [facility] CLIA [id number] [address] [place] [address] [place] Urea nitrogen [Mass/Vol] 16 mg/dL Normal 7-21 [facility] Comment on above: Order Comment: Speci men Type: BLOOD SPECIMEN Ordering Facility: [facility] Address: [address] [place] [address] Performed By: #### 3 024-7, [facility], 46030-6 #### [facility] CLIA [id number] [address] [place] [address] [place] [id number] 04-05-2024 ECG01 Ventricular Rate : 87 BPM Atrial Rate : 87 BPM P-R Interval : 128 ms QRS Duration : 82 ms Q-T Interval : 340 ms QTC Calculation(Bazett) : 409 ms Calculated P Thayer : 66 degrees Calculated R Thayer : 95 degrees Calculated T Thayer : 9 degrees NORMAL SINUS RHYTHM POSSIBLE LEFT ATRIAL ENLARGEMENT RIGHT AXIS NONSPECIFIC T WAVE ABNORMALITY ABNORMAL ECG NO PREVIOUS ECGS AVAILABLE Confirmed by GERARD MANUEL M.D. (91) on 04/07/2024 1:19:49 PM NAME : TRAVON STALLWORTH PID : [id number] : 2005 Gender : Female Race : ORD : Procedure Date : Apr 05 2024 16:17:37 Edit Date : Apr 07 2024 13:19:50 Diagnosis: NORMAL SINUS RHYTHM POSSIBLE LEFT ATRIAL ENLARGEMENT RIGHT AXIS NONSPECIFIC T WAVE ABNORMALITY ABNORMAL ECG NO PREVIOUS ECGS AVAILABLE Confirmed by GERARD MANUEL M.D. (91) on 04/07/2024 1:19:49 PM Test Reason : Location : [facility] : [facility] Overread By : GERARD MANUEL M.D. Edited By : GERARD MANUEL M.D. Referred By : , Acquired by : , Normal [facility] T4 Free SerPl-mCncon 024 Free T4 [Mass/Vol] 1.5 ng/dL Normal 0.9-1.7 [facility] Comment on above: Order Comment: Speci men Type: BLOOD SPECIMEN Ordering Facility: [facility] Address: [address] [place] [address] Performed By: #### 3 024-7, TSHRF, 91544-3 #### [facility] CLIA [id number] [address] [place] [address] [place] TSH W/REFLEX FT4on 4 TSH Qn 6.610 m[IU]/L High 0.510-4.300 [facility] Comment on above: Order Comment: Speci men Type: BLOOD SPECIMEN Ordering Facility: [facility] Address: [address] [place] [address] Result Comment: If t he patient is , TSH reference range varies by gestational period: First Trimester (weeks 9-12): 0.180-2.990 mIU/L Second Trimester: 0.110-3.980 mIU/L Third Trimester: 0.480-4.710 mIU/L Malcolm Molina et al. A Practical Approach for the Verifications and Determination of Site- and Trimester-Specific Reference Intervals for Thyroid Function tests in . Thyroid, 2019:29:3:412-420. Rubio E, et al. 2017 Guidelines of the [place] Thyroid Association for the Diagnosis and Management of Thyroid Disease during and the . Thyroid, 2017:27:3:315-389. Performed By: #### 3 024-7, TSHRF, 31138-5 #### [facility] CLIA [id number] [address] [place] [address] [place] COMPLETE URINALYSISon 2023 BACTERIA (#/HPF) IN URINE Few Abnormal Negative [facility] Comment on above: Performed By: #### L [id number] #### Bilingual Sales Consultant: DUGLAS CASTILLO ([phone]) [facility] ([facility]) [address] [place] [address] BILIRUBIN, TOTAL PRESENCE IN URINE Negative Normal Negative [facility] Comment on above: Performed By: #### L AB347 #### Bilingual Sales Consultant: DUGLAS CASTILLO ([phone]) [facility] ([facility] [address] [place] [address] Clarity (U) Turbid Abnormal Clear [facility] Comment on above: Performed By: #### L AB347 #### Bilingual Sales Consultant: DUGLAS CASTILLO ([phone]) [facility] ([facility]) [address] [place] [address] Color (U) Light Yellow Normal Lt. Yellow [facility] Comment on above: Performed By: #### L AB347 #### Bilingual Sales Consultant: DUGLAS CASTILLO ([phone]) [facility] ([facility]) [address] [place] [address] GLUCOSE (MG/DL) IN URINE Normal Normal Normal (<70) [facility] [facility] Comment on above: Performed By: #### L [id number] #### Bilingual Sales Consultant: DUGLAS CASTILLO ([phone]) [facility]) [address] [place] [address] HEMOGLOBIN PRESENCE IN URINE 1.0 mg/dL Abnormal Negative [facility] Comment on above: Performed By: #### L [id number] #### Bilingual Sales Consultant: DUGLAS CASTILLO ([phone]) [facility] ([facility]) [address] [place] [address] HYALINE CASTS (#/LPF) IN URINE SEDIMENT BY MICROSCOPY Negative Normal Negative [facility] Comment on above: Performed By: #### L [id number] #### Bilingual Sales Consultant: DUGLAS CASTILLO ([phone]) [facility] ([facility]) [address] [place] [address] Ketones Ql (U) Negative Normal Negative [facility] Comment on above: Performed By: #### L [id number] #### Bilingual Sales Consultant: DUGLAS CASTILLO ([phone]) [facility] ([facility]) [address] [place] [address] LEUKOCYTE ESTERASE PRESENCE IN URINE BY TEST STRIP 500 Gustavo/uL Abnormal Negative [facility] Comment on above: Performed By: #### L [id number] #### Bilingual Sales Consultant: DUGLAS CASTILLO ([phone]) [facility] ([facility]) [address] [place] [address] NITRITE PRESENCE IN URINE Negative Normal Negative [facility] Comment on above: Performed By: #### L [id number] #### Bilingual Sales Consultant: DUGLAS CASTILLO ([phone]) [facility] ([facility]) [address] [place] [address] pH (U) 7.0 [pH] Normal 5.0-8.0 [facility] Comment on above: Performed By: #### L [id number] #### Bilingual Sales Consultant: DUGLAS CASTILLO ([phone]) [facility] ([facility]) [address] [place] [address] Protein (U) [Mass/Vol] 10 mg/dL Abnormal Negative [facility] Comment on above: Performed By: #### L [id number] #### Bilingual Sales Consultant: DUGLAS CASTILLO ([phone]) [facility] ([facility]) [address] [place] [address] RBC (#/HPF) IN URINE SEDIMENT 11-25 Abnormal 0-2 [facility] Comment on above: Performed By: #### L [id number] #### Bilingual Sales Consultant: DUGLAS CASTILLO ([phone]) [facility] ([facility]) [address] [place] [address] Specific gravity (U) [Rel density] 1.005 Normal 1.005-1.030 [facility] Comment on above: Performed By: #### L [id number] #### Bilingual Sales Consultant: DUGLAS CASTILLO ([phone]) [facility]) [address] [place] [address] SQUAMOUS EPITHELIAL CELLS (#/HPF) IN URINE SEDIMENT 0-2 Normal 3-5 [facility] Comment on above: Performed By: #### L [id number] #### Bilingual Sales Consultant: DUGLAS CASTILLO ([phone]) [facility]) [address] [place] [address] UROBILINOGEN (MG/DL) IN URINE Normal Normal Normal (0-1) [facility] Comment on above: Performed By: #### L [id number] #### Bilingual Sales Consultant: DUGLAS CASTILLO ([phone]) [facility] ([facility]) [address] [place] [address] WBC (LEUKOCYTE) (#/HPF) IN URINE SEDIMENT >100 Abnormal 0-5 [facility] Comment on above: Performed By: #### L [id number] #### Bilingual Sales Consultant: DUGLAS CASTILLO ([phone]) [facility] ([facility]) [address] [place] [address] WBC (LEUKOCYTE) CLUMPS (#/HPF) IN URINE SEDIMENT Few Abnormal Negative [facility] Comment on above: Performed By: #### L [id number] #### Bilingual Sales Consultant: DUGLAS CASTILLO ([phone]) [facility] ([facility]) [address] [place] [address] ED Provider Noteon ED Provider Note Emergency Department Encounter [facility] Patient: Travon Stallworth : 2005 Date of Evaluation: 03/16/2024 ED Supervising Physician: Roney Issa DO I personally evaluated Travon Stallworth and made/approved the management plan and take responsibility for the patient management. This will serve as my Supervisory note and shared attestation. I did perform a substantive portion of the visit including all aspects of the Medical Decision Making. I wore appropriate PPE for the entirety of this encounter. In brief, Travon Stallworth is a 18 y.o. that presents to the emergency department with chief complaint of dysuria. She also notes bloody urine. Symptoms have been present for the past day. She attempted to go to urgent care but it was closed so boyfriend called paramedics so she could be seen. She denies any prior history of kidney stones. Denies any abnormal vaginal bleeding or discharge. No concern for any STI. Does note some flank pain on left side that has started to develop over the last few hours. Focused exam: Alert and orient x 3. Heart is regular rate and rhythm. Lungs are auscultation bilateral. Abdomen soft. Mild tenderness to palpation of the left lower quadrant of abdomen as well as left CVA. No rebound, rigidity, or guarding. Brief ED course/MDM: Patient further evaluated urinalysis and urine test. Urine analysis does show signs of acute infection. test negative. Given her abdominal and flank pain, suspect acute pyelonephritis at this time. However, she is not tachycardic and hemodynamically stable. Not meeting any sepsis criteria at this time. Able to tolerate her oral intake as well. Suitable for outpatient treatment with antibiotics. First dose given in ER. All diagnostic, treatment, and disposition decisions were made by myself in conjunction with the Resident. I also supervised bruno portions of any procedures performed by the Resident. For all further details of the patient's emergency department visit, please see their documentation. (Comment: Please note this report has been produced using speech recognition software and may contain errors related to that system including errors in grammar, punctuation, and spelling, as well as words and phrases that may be inappropriate. If there are any questions or concerns please feel free to contact the dictating provider for clarification.) Roney Issa DO [employer] Roney Issa DO 03/17/[address] [facility] ED Provider Note EMERGENCY DEPARTMENT ENCOUNTER Pt Name: Travon Stallworth Birthdate 2005 Date of evaluation: 03/16/2024 ED Provider: LEEROY BALTAZAR DO CHIEF COMPLAINT Chief Complaint Patient presents with Female Dysuria Pt presents to the ed w painful, burning and bloody urine x 1 day via squad. Ems reports pt was found at a closed urgent care to be seen for the complaints but once she arrived and seen they were the boyfriend called the squad. Pt answers all questions appropriately but delayed response. EMS reports pt smoked a blunt for the pain but made things worse. Pt is A&O x 3 with a GCS of 15. Pt is without distress and has a steady gait. HISTORY OF PRESENT ILLNESS (Location/Symptom, Timing/Onset, Context/Setting, Quality, Duration, Modifying Factors, Severity) Note limiting factors. I wore appropriate PPE for the entirety of this encounter. HPI Travon Stallworth is a 18 y.o. who presents to the emergency department complaining of bloody painful urination. Patient went to an urgent care that was close so then boyfriend called squad to bring her to the ED. Here patient does not have any aaron hematuria but does have some left lower quadrant pain. She does not have any fever, chills, nausea, vomiting or diarrhea. Does not take control but denies any possibility of . She says she did have a menstrual cycle this month that lasted 10 days. This was preceded by a 2-month period of amenorrhea. This is abnormal for her as usually she has regular cycles every month. Otherwise has no complaints. Nursing Notes were reviewed. Limitations to history: None Outside historians: Significant other REVIEW OF SYSTEMS Review of Systems Pertinent positives and negatives as per HPI. PAST MEDICAL HISTORY No past medical history on file. SURGICAL HISTORY No past surgical history on file. CURRENT MEDICATIONS Previous Medications No medications on file ALLERGIES Patient has no known allergies. FAMILY HISTORY No family history on file. SOCIAL HISTORY Social History Socioeconomic History Marital status: Single SCREENINGS PHYSICAL EXAM ED Triage Vitals [03/16/24 0459] Temp Heart Rate Resp BP 37.4 ?C (99.3 ?F) 98 16 123/77 SpO2 Temp Source Heart Rate Source Patient Position 94 % Oral Monitor -- BP Location FiO2 (%) -- -- Physical Exam Constitutional: General: She is not in acute distress. Appearance: Normal appearance. HENT: Head: Normocephalic and atraumatic. Right Ear: External ear normal. Left Ear: External ear normal. Nose: No congestion or rhinorrhea. Mouth/Throat: Mouth: Mucous membranes are moist. Pharynx: Oropharynx is clear. Eyes: Extraocular Movements: Extraocular movements intact. Pupils: Pupils are equal, round, and reactive to light. Cardiovascular: Rate and Rhythm: Normal rate and regular rhythm. Pulses: Normal pulses. Heart sounds: Normal heart sounds. Pulmonary: Effort: Pulmonary effort is normal. No respiratory distress. Breath sounds: Normal breath sounds. Abdominal: General: Abdomen is flat. There is no distension. Palpations: Abdomen is soft. Tenderness: There is abdominal tenderness in the left lower quadrant. Musculoskeletal: General: No swelling or deformity. Normal range of motion. Cervical back: Normal range of motion. Skin: General: Skin is warm and dry. Capillary Refill: Capillary refill takes less than 2 seconds. Findings: No rash. Neurological: General: No focal deficit present. Mental Status: She is alert and oriented to person, place, and time. Mental status is at baseline. Psychiatric: Mood and Affect: Mood normal. Behavior: Behavior normal. DIAGNOSTIC RESULTS RADIOLOGY (Per Emergency Physician): Interpretation per the Radiologist below, if available at the time of this note: No orders to display LABS: Labs Reviewed COMPLETE URINALYSIS - Abnormal Result Value Color, Urine Light Yellow Clarity, Urine Turbid (*) pH, Urine 7.0 Leukocytes, Urine 500 (*) Nitrite, Urine Negative Protein, Urine 10 (*) Glucose, Urine Normal Bilirubin, Urine Negative Ketones, Urine Negative Urobilinogen, Urine Normal Blood, Urine 1.0 (*) RBC, Urine 11-25 (*) WBC, Urine >100 (*) Squamous Epithelial, Urine 0-2 Bacteria, Urine Few (*) Hyaline Casts, Urine Negative WBC Clumps, Urine Few (*) SPECIFIC GRAVITY OF URINE (NUMERIC) 1.005 HCG QUALITATIVE URINE HCG,URINE QUAL Negative Narrative: is the most common reason for HCG in urine, although choriocarcinoma, hydatidiform mole, and certain nontrophoblastic malignancies also result in detectable urinary HCG levels. Sensitivity = 20mIU/mL. All other labs were within normal range or not returned as of this dictation. EMERGENCY DEPARTMENT COURSE and DIFFERENTIAL DIAGNOSIS/MDM: Vitals: Vitals: 03/16/24 0459 BP: 123/77 Pulse: 98 Resp: 16 Temp: 37.4 ?C (99.3 ?F) TempSrc: Oral SpO2: 94% We (more content not included)... Normal [facility] HCG QUALITATIVE URINEon 02-23 Beta HCG ( test) Ql (U) Negative Normal Negative [facility] Comment on above: Result Comment: Plea se note: Very dilute urine specimens, as indicated by a low specific gravity, may not contain paper sales representative levels of hCG. If is still suspected, a first morning urine specimen should be collected 48 hours later and tested. ORDER COMMENTS: is the most common reason for HCG in urine, although choriocarcinoma, hydatidiform mole, and certain nontrophoblastic malignancies also result in detectable urinary HCG levels. Sensitivity = 20mIU/mL. Performed By: #### L [id number] #### Bilingual Sales Consultant: DUGLAS CASTILLO ([phone]) [facility] ([facility]) [address] [place] [address] Laboratory - Chemistry and C hemistry - challengeOrdered By: Maria Guadalupe Serna on 03-16-2024 Beta HCG ( test) Ql Negative Negative [facility] Comment on above: Please note: Very di lute urine specimens, as indicated by a low specific gravity, may not contain paper sales representative levels of hCG. If is still suspected, a first morning urine specimen should be collected 48 hours later and tested. Beta HCG ( test) Ql (U) is the most common reason for HCG in urine, although choriocarcinoma, hydatidiform mole, and certain nontrophoblastic malignancies also result in detectable urinary HCG levels. Sensitivity = 20mIU/mL. [facility] No Panel InformationOrdered By: Maria Guadalupe Serna on 03-16-2024 [facility] Urinalysis complete panel (U )Ordered By: López Pena on 03-16-2024 Bacteria LM.HPF (Urine sed) [#/Area] Few Abnormal Negative /HPF [facility] Bilirubin Ql (U) Negative Negative mg/dL [facility] Clarity (U) Turbid Abnormal Clear [facility] Color (U) Light Yellow Lt. Yellow [facility] Epithelial cells.squamous LM.HPF (Urine sed) [#/Area] 0-2 [facility] h Glucose Ql (U) Normal Normal (<70) mg/dL [facility] Hemoglobin Ql (U) 1.0 mg/dL Abnormal Negative [facility] Hyaline casts Auto (Urine sed) [#/Area] Negative Negative /LPF [facility] Interpretation and review of laboratory results Abnormal [facility] Ketones (U) [Mass/Vol] Negative Negat payton mg/dL [facility] Leukocyte clumps LM.HPF (Urine sed) [#/Area] Few Abnormal Negative /[facility] Leukocyte esterase Test strip Ql (U) 500 Abnormal Negative Gustavo/uL [facility] Nitrite Ql (U) Negative Negative [facility] th pH (U) 7.0 [pH] 5.0 - 8.0 pH [facility] Protein (U) [Mass/Vol] 10 mg/dL Abnormal Negative [facility] RBC LM.HPF (Urine sed) [#/Area] 11-25 Abnormal [facility] Specific gravity (U) [Rel density] 1.005 1.005 - 1.030 [facility] Urobilinogen (U) [Mass/Vol] Normal Normal (0-1) mg/dL [facility] WBC LM.HPF (Urine sed) [#/Area] /[HPF] Abnormal [facility] BLD HCG (QUAL)on 02-07-2024 BLD HCG (QUAL) Negative Normal (NEG) [facility] Comment on above: Order Comment: STAT FACILITY: [facility] [id number] Performed By: #### P REG #### [facility] [address] [facility], [address] CHLAMYDIA/GC BY PCRon 2023 CHLAMYDIA/GC BY PCR SPECIMEN SOURCE CERVIX Corrected on 02/07 AT 1106: Previously reported as CERVICAL CHLAMYDIA DNA(PCR) Negative (qualifier value) Chlamydia trachomatis not detected by nucleic acid amplification. This does not exclude the possibility of infection because results are dependent on adequate specimen collection. GONORRHOEAE DNA(PCR) Negative (qualifier value) Neisseria gonorrhoeae not detected by nucleic acid amplification. This does not exclude the possibility of infection because results are dependent on adequate specimen collection. Normal [facility] Comment on above: Performed By: #### C GS #### [facility] ([id number]) [address] [place] [address], [address] [place] [address] Cytologyon 02-07-2024 Cytology Normal [facility] Comment on above: Result Comment: [facility] [address] [place] [address] Gynecologic Cytology Consultation Patient Name:TRAVON STALLWORTH:2005 (Age: 18)Gender:FTaken:4Reported:4Physician(s):Julius Castro M.D. ([phone])Copy To: Rec. #:[id number]: #[id number] Final Cytologic Interpretation ThinPrep Pap Test (Cervical/Endocervical): Satisfactory for evaluation. A transformation zone component is present. NEGATIVE FOR INTRAEPITHELIAL LESION OR MALIGNANCY. az/02/27/2024 Interpretation [place] [address], License number: [id number]. Electronically Signed Out By Angela Mario Date of Last Menstrual Period: 12/24/23 Other Clinical Conditions: Z01.419 Mental Health Consultant exam wo/abn findings Z11.51 Screening for HPV Z11.3 Encntr screen for infections w sexl mode of transmiss Source of Specimen ThinPrep Pap Test (Cervical/Endocervical) Thin Prep Pap ([facility] FLOOR) Fee Code(s): G0145 The Pap test is a screening test with an inherent, but low, probability of error. The Pap test is primarily effective for the diagnosis and prevention of squamous cell carcinoma. Regular screening is critical for prevention. ThinPrep liquid-based slides, which meet the Conduit Helper criteria for automated screening, have been screened by the ThinPrep Imaging System (as of 01/08/07) along with an additional manual rescreening by a heating and ventilation engineer and, if indicated, by a pathologist. VAGINITIS PANEL PCRon 2023 VAGINITIS PANEL PCR BACT. VAGINOSIS DNA Not detected (qualifier value) Qualitative results are reported based on detection and quantitation of targeted organism markers which include: Lactobacillus spp. (L. crispatus and L. jensenii), Gardnerella vaginalis, Atopobium vaginae, Bacterial Vaginosis Associated Bacteria-2 (BVAB-2) and Megasphaera-1 RENE SPECIES DNA Detected (qualifier value) Rene species result based on detection of one or more of the following species: C. albicans, C. tropicalis, C. parapsilosis or C. dubliniensis RENE KRUSEI DNA Not detected (qualifier value) No Rene krusei detected RENE GLABRATA DNA Not detected (qualifier value) No Rene glabrata detected TRICHOMONAS VAG DNA Not detected (qualifier value) No Trichomonas vaginalis detected NOTE BD MAX Vaginal Panel has not been evaluated for patients under 18 years old. Results for these patients should be reviewed and assessed in accordance with clinical presentation to determine patient diagnosis. Normal [facility] Comment on above: Performed By: #### V PPCR #### [facility] ([id number]) [address] [place] [address] THYROID PROFILEon 11-30-2023 Free T4 [Mass/Vol] 1.20 ng/dL Normal 0.61-1.60 [facility] Comment on above: Performed By: #### T HYR #### [facility] ([id number]) [address], [address] [place] [address] TSH 2.47 uIU/mL Normal 0.49-4.67 [facility] Comment on above: Performed By: #### T HYR #### [facility] ([id number]) [address], [address] [place] [address] GLUCOSE,FASTINGon 12-18-2021 Glucose [Mass/Vol] 87 mg/dL Normal 74 - 99 [facility] Comment on above: Result Comment: INCR EASED RISK FOR DIABETES 100-125 mg/dL DIAGNOSTIC OF DIABETES >=126 mg/dL Diagnosis of diabetes mellitus requires confirmation of an abnormal result by repeat testing. [employer], Diabetes Care; 33(Supp 1), Apr 2009. Performed By: #### G LUCF #### [facility] [address] [place] [address] LIPID PANEL (CORONARY RISK 2 )on 12-18-2021 Cholesterol [Mass/Vol] 115 mg/dL Normal 0 - 199 [facility] Comment on above: Result Comment: . AGE DESIRABLE BORDERLINE HIGH HIGH 0-19 Y 0 - 169 170 - 199 >/= 200 20-24 Y 0 - 189 190 - 224 >/= 225 >24 Y 0 - 199 200 - 239 >/= 240 All ranges are based on fasting samples. Specific therapeutic targets will vary based on patient-specific cardiac risk. . Pediatric guidelines reference:Pediatrics 2011, 128(S5). Adult guidelines reference: NCEP ATPIII Guidelines, SANDEEP 2001, 258:2486-97 . Venipuncture immediately after or during the administration of Metamizole may lead to falsely low results. Testing should be performed immediately prior to Metamizole dosing. Performed By: #### L IPID #### [facility] [address] [place] [address] Cholesterol in HDL [Mass/Vol] 50.4 mg/dL Normal [facility] Comment on above: Result Comment: . AGE VERY LOW LOW NORMAL HIGH 0-19 Y < 35 < 40 40-45 ---- 20-24 Y ---- < 40 >45 ---- >24 Y ---- < 40 40-60 >60 . Performed By: #### L IPID #### [facility] [address] [place] [address] Cholesterol in LDL [Mass/Vol] 58 mg/dL Normal 0 - 109 [facility] Comment on above: Result Comment: . NEAR BORD AGE DESIRABLE OPTIMAL HIGH HIGH VERY HIGH 0-19 Y 0 - 109 --- 110-129 >/= 130 ---- 20-24 Y 0 - 119 --- 120-159 >/= 160 ---- >24 Y 0 - 99 100-129 130-159 160-189 >/=190 . Performed By: #### L IPID #### [facility] [address] [place] [address] Cholesterol in VLDL [Mass/Vol] 6 mg/dL Normal 0 - 40 [facility] Comment on above: Performed By: #### L IPID #### [facility] [address] [place] [address] Cholesterol.total/Rosie sterol in HDL [Mass ratio] 2.3 {ratio} Normal [facility] Comment on above: Result Comment: REF VALUES DESIRABLE < 3.4 HIGH RISK > 5.0 Performed By: #### L IPID #### [facility] [address] [place] [address] NON-HDL CHOLESTEROL 65 mg/dL Normal 0 - 119 [facility] Comment on above: Result Comment: AGE DESIRABLE BORDERLINE HIGH HIGH VERY HIGH 0-19 Y 0 - 119 120 - 144 >/= 145 >/= 160 20-24 Y 0 - 149 150 - 189 >/= 190 ---- >24 Y 30 MG/DL ABOVE LDL CHOLESTEROL GOAL . Performed By: #### L IPID #### [facility] [address] [place] [address] Triglyceride [Mass/Vol] 32 mg/dL Normal 0 - 149 [facility] Comment on above: Result Comment: . AGE DESIRABLE BORDERLINE HIGH HIGH VERY HIGH 0 D-90 D 19 - 174 ---- ---- ---- 91 D- 9 Y 0 - 74 75 - 99 >/= 100 ---- 10-19 Y 0 - 89 90 - 129 >/= 130 ---- 20-24 Y 0 - 114 115 - 149 >/= 150 ---- >24 Y 0 - 149 150 - 199 200- 499 >/= 500 . Venipuncture immediately after or during the administration of Metamizole may lead to falsely low results. Testing should be performed immediately prior to Metamizole dosing. Performed By: #### L IPID #### [facility] [address] [place] [address] VITAMIN D, 25-HYDROXYon 11-23 VITAMIN D, 25-HYDROXY 35 ng/mL Normal [facility] Comment on above: Result Comment: . DEFICIENCY: < 20 NG/ML INSUFFICIENCY: 20-29 NG/ML SUFFICIENCY: 30-100 NG/ML THIS ASSAY ACCURATELY QUANTIFIES THE SUM OF VITAMIN D3, 25-HYDROXY AND VIT D2,25-HYDROXY. Performed By: #### V TDOH #### [facility] [address] [place] [address] ACUTE TOXICOLOGY PANEL, BLOO Don 12-17-2021 Acetaminophen [Mass/Vol] ug/mL Normal 10.0 - 30.0 [facility] Comment on above: Performed By: #### D RUBL ####[facility] [place] [address] Ethanol [Mass/Vol] mg/dL Normal [facility] Comment on above: Result Comment: FOR MEDICAL USE ONLY. . REF VALUES <10 Performed By: #### D RUBL ####[facility] [place] [address] SALICYLATE <3 Normal 4 - 20 [facility] Comment on above: Performed By: #### D RUBL ####[facility] [place] [address] CBC AND DIFFERENTIALon 12-17 % AUTOMATED IMMATURE GRAN 0.2 % Normal 0.0 - 0.9 [facility] Comment on above: Result Comment: Maggi ture Granulocyte Count (IG) includes promyelocytes, myelocytes and metamyelocytes but does not include bands. Percent differential counts (%) should be interpreted in the context of the absolute cell counts (cells/L). Performed By: #### C BCDF #### [address] [address] Basophils (Bld) [#/Vol] 0.09 10*3/uL Normal 0.00 - 0.[address] [facility] Comment on above: Performed By: #### C BCDF #### [address] [address] Basophils/100 WBC (Bld) 1.1 % Normal 0.0 - 2.0 [facility] Comment on above: Performed By: #### C BCDF #### [address] [address] Eosinophils (Bld) [#/Vol] 0.38 10*3/uL Normal 0.00 - 0.70 [facility] Comment on above: Performed By: #### C BCDF #### [address] [address] Eosinophils/100 WBC (Bld) 4.7 % Normal 0.0 - 6.0 [facility] Comment on above: Performed By: #### C BCDF #### [address] [address] Erythrocyte distribution width (RBC) [Ratio] 11.8 % Normal 11.5 - 14.5 [facility] Comment on above: Performed By: #### C BCDF #### [address] [address] Hematocrit (Bld) [Volume fraction] 35.1 % Low 36.0 - 46.0 [facility] Comment on above: Performed By: #### C BCDF #### [address] [address] Hemoglobin (Bld) [Mass/Vol] 12.1 g/dL Normal 12.0 - 16.0 [facility] Comment on above: Performed By: #### C BCDF #### [address] [address] Lymphocytes (Bld) [#/Vol] 1.72 10*3/uL Normal 1.20 - 4.80 [facility] Comment on above: Performed By: #### C BCDF #### [address] [address] Lymphocytes/100 WBC (Bld) 21.4 % Normal 13.0 - 44.0 [facility] Comment on above: Performed By: #### C BCDF #### [address] [address] MCHC (RBC) [Mass/Vol] 34.5 g/dL Normal 32.0 - 36.0 [facility] Comment on above: Performed By: #### C BCDF #### [address] [address] MCV (RBC) [Entitic vol] 83 fL Normal 80 - 100 [facility] Comment on above: Performed By: #### C BCDF #### [address] [address] Monocytes (Bld) [#/Vol] 0.54 10*3/uL Normal 0.10 - 1.[address] [facility] Comment on above: Performed By: #### C BCDF #### [address] [address] Monocytes/100 WBC (Bld) 6.7 % Normal 2.0 - 10.0 [facility] Comment on above: Performed By: #### C BCDF #### [address] [address] Neutrophils (Bld) [#/Vol] 5.28 10*3/uL Normal 1.20 - 7.70 [facility] Comment on above: Performed By: #### C BCDF #### [address] [address] Neutrophils/100 WBC (Bld) 65.9 % Normal 40.0 - 80.0 [facility] Comment on above: Performed By: #### C BCDF #### [address] [address] Platelets (Bld) [#/Vol] 309 10*3/uL Normal 150 - 450 [facility] Comment on above: Performed By: #### C BCDF #### [address] [address] RBC 4.25 x10E12/L Normal 4.00 - 5.20 [facility] Comment on above: Performed By: #### C BCDF #### [address] [address] WBC (Bld) [#/Vol] 8.0 10*3/uL Normal 4.4 - 11.3 [facility] Comment on above: Performed By: #### C BCDF #### [address] [address] COMPREHENSIVE PANELon 2021 Albumin [Mass/Vol] 4.4 g/dL Normal 3.4 - 5.0 [facility] Comment on above: Performed By: #### C MP ####[address] [address] ALP [Catalytic activity/Vol] 61 U/L Normal 33 - 110 [facility] Comment on above: Performed By: #### C MP ####[address] [address] ALT [Catalytic activity/Vol] 8 U/L Normal 7 - 45 [facility] Comment on above: Result Comment: Snow ents treated with Sulfasalazine may generate falsely decreased results for ALT. Performed By: #### C MP ####[address] [address] Anion gap [Moles/Vol] 12 mmol/L Normal 10 - 20 [facility]: Performed By: #### C MP ####[address] [address] AST [Catalytic activity/Vol] 13 U/L Normal 9 - 39 [facility] Comment on above: Performed By: #### C MP ####[address] [address] Bilirubin [Mass/Vol] 0.3 mg/dL Normal 0.0 - 1.2 [facility] Comment on above: Performed By: #### C MP ####[address] [address] Calcium [Mass/Vol] 9.1 mg/dL Normal 8.6 - 10.3 [facility] Comment on above: Performed By: #### C MP ####[address] [address] Chloride [Moles/Vol] 107 mmol/L Normal 98 - 107 [facility] Comment on above: Performed By: #### C MP ####[address] [address] Creatinine [Mass/Vol] 0.85 mg/dL Normal 0.50 - 1.05 [facility] Comment on above: Performed By: #### C MP ####[address] [address] eGFR FEMALE >90 Normal >90 [facility] Comment on above: Result Comment: CALC ULATIONS OF ESTIMATED GFR ARE PERFORMED USING THE 2020 CKD-EPI STUDY REFIT EQUATION WITHOUT THE RACE VARIABLE FOR THE IDMS-TRACEABLE CREATININE METHODS. https://jasn.asnjournals.org/content//ASN.2020 545835 Performed By: #### C MP ####[address] [address] Glucose [Mass/Vol] 94 mg/dL Normal 74 - 99 [facility] Comment on above: Performed By: #### C MP ####[address] [address] HCO3 (Bld) [Moles/Vol] 24 mmol/L Normal 21 - 32 [facility] Comment on above: Performed By: #### C MP ####[address] [address] Potassium [Moles/Vol] 3.7 mmol/L Normal 3.5 - 5.3 [facility] Comment on above: Performed By: #### C MP ####[place] [address] Protein [Mass/Vol] 6.8 g/dL Normal 6.4 - 8.2 [facility] Comment on above: Performed By: #### C MP ####[place] [address] Sodium [Moles/Vol] 139 mmol/L Normal 136 - 145 [facility] Comment on above: Performed By: #### C MP ####[place] [address] Urea nitrogen [Mass/Vol] 9 mg/dL Normal 6 - 23 [facility] Comment on above: Performed By: #### C MP ####[place] [address] CORONAVIRUS 2019, SCREEN ASY MPTOMATICon 12-17-2021 SARS-CoV-2 (COVID-19) RNA FERMÍN+probe Ql (Unsp spec) Not detected Normal Not Detected [facility] Comment on above: Result Comment: . This test has received [facility] Emergency Use Authorization (EUA) and has been verified by [facility]. This test is only authorized for the duration of time that circumstances exist to justify the authorization of the emergency use of in vitro diagnostic tests for the detection of SARS-CoV-2 virus and/or diagnosis of COVID-19 infection under section 564(b)(1) of the Act, 21 U.S.C. 360bbb-3(b)(1), unless the authorization is terminated or revoked sooner. [facility] is certified under CLIA-88 as qualified to perform high complexity testing. Testing is performed in the [facility] laboratory located at [address] [place] [address]. SARS-CoV-2/Flu/RSV Multiplex Test: Fact sheet for providers: https://www.fda.gov/media/957291/download Fact sheet for patients: https://www.fda.gov/media/196228/download Performed By: #### C OVSC #### [facility] [address] [place] [address] Lab Specimen Source Nasal, Nasopharyngeal Normal [facility] Comment on above: Performed By: #### C OVSC #### [facility] [address] [place] [address] Clinical Event Noteon 2021 Clinical Event Note Clinical Event: Clinical Event Note: Details Patient is currently medically cleared for psychiatric placement. She has been observed for the overdose per poison control recommendation. She otherwise has remained hemodynamically stable. Electronic Signatures: Kenji Rivera () (Signed 17-Dec-2021 12:45) Authored: Clinical Event Note Last Updated: 17-Dec-2021 12:45 by Kenji Rivera () Normal [facility] Covid 19 Resultson 2 SARS-CoV-2 (COVID-19) RNA FERMÍN+probe Ql (Unsp spec) NEGATIVE COVID-19 Test Coronaviruses are common world-wide and are the cause of many common colds. SARS-COV2 is a new coronavirus that began circulating worldwide in 2019 so we are calling it COVID-19. It has been estimated that four out of five patients with COVID-19 will recover at home without the need for medical attention. Symptoms of COVID-19 may include cough, fever, shortness of breath, loss of taste or smell and other flu-like symptoms including chills, sore muscles, sore throat, and headache. Severe illness is more common in older people and people with other health problems such as high blood pressure, obesity, and immune system problems. If the test is positive, you have COVID-19. You will be contacted by the ordering physicians office and instructed to remain on home isolation, in accordance with CDC guidelines. You may also be contacted by the [facility] to see if any of your close contacts may have been exposed to the virus and need to quarantine. If the test is negative, you likely do not have COVID-19 at this time, but you still may have a different illness that can spread to other people (like Influenza, or the Flu) and could still be at risk for getting COVID-19. We recommend that you stay away from other people to limit the spread of illness until your symptoms are improving and you are fever-free for 24 hours without the use of fever lowering medications such as acetaminophen or ibuprofen. No test is 100% accurate so if you are still concerned you may have COVID-19, talk to your doctor about the need to continue to stay away from others. Medicines Unless your provider told you not to use the following: Acetaminophen (Tylenol and others) is generally safe. Anti-inflammatory medications, such as Ibuprofen (Advil or Motrin) or Naproxen (Aleve) can also be used. Vucw-ccb-fjitqpm cough and cold medicines can be used according to the instructions on the package. Some sekd-hou-bfwpuvd medicines also contain acetaminophen. Make sure you are not taking more than your recommended dose. For those not hospitalized, there is no specific treatment available for this illness. Antibiotics do not treat Coronaviruses. Follow-Up Follow up with your doctor by scheduling a virtual visit or consider follow-up at one of our urgent care fever clinics. If you are having difficulty breathing, or are very weak and having difficulty standing, this is a medical emergency. Call 911 or have someone take you to the nearest emergency room immediately. If possible, wear a facemask. Additional guidance from the CDC for patients who tested POSITIVE for COVID-19 How to isolate: Isolate yourself in a specific room at home and limit your contact with others. Use a separate bathroom from other members of the household, when possible. Leave home only to get essential medical care. Do not go to work, school or public areas. Avoid using public transportation, ride-sharing, or taxis. Restrict contact with pets and other animals. If you must care for your pet or be around animals while you are sick, wash your hands before and after your interaction and wear a facemask. Make sure that shared spaces in the home have good airflow, such as by an air conditioner or an opened window, weather permitting. Personal Hygiene Procedures: Wear a face mask when in the same room as other people or pets. If a face mask interferes with your breathing, others should wear a mask when sharing space with you. Frequent hand-washing: wash your hands with soap and water for at least 20 seconds. If soap and water are not available, use alcohol-based hand senior portfolio manager. Avoid touching your eyes, nose, and mouth with unwashed hands. Household Hygiene Procedures: Avoid sharing personal household items such as dishes, glassware, cups, eating utensils, towels or bedding with other people or pets in your home. After use, these items should be washed with soap and hot water. Disinfect all high-touch surfaces every day with antibacterial cleaning solutions such as Lysol wipes, bleach, cleansers, etc. High-touch surfaces include tabletops, doorknobs, bathroom fixtures, toilets, phones, keyboards, tablets and bedside tables. Immediately clean any surfaces that may have blood, poop or body fluids on them, using antibacterial cleaning solutions such as Lysol wipes, bleach, cleansers, etc. If clothing or bedding come into contact with blood, poop or body fluids, they should be washed immediately. Follow the directions on the laundry detergent and clothing labels but hot water is recommended when possible. Stopping home isolation precautions: If possible, consult your doctor before stopping home isolation precautions. According to the CDC, you can discontinue home isolation precautions when you have met both of these criteria: Your fever and respiratory symptoms have been gone for 24 fahad (more content not included)... Normal [facility] DRUG SCREEN,URINEon 12-18-19 22 AMPHETAMINE SCREEN,U Negative Normal NEGATIVE [facility] Comment on above: Result Comment: CUTO FF LEVEL: 500 NG/ML Cross-reactivity has been reported with high concentrations of the following drugs: buproprion, chloroquine, chlorpromazine, ephedrine, mephentermine, fenfluramine, phentermine, phenylpropanolamine, pseudoephedrine, and propranolol. Performed By: #### D RUG3 #### [place] [address] BARBITURATES SCREEN,U Negative [facility] NEGATIVE [facility] on above: Result Comment: CUTO FF LEVEL: 200 NG/ML Performed By: #### D RUG3 #### [address] [address] BENZODIAZEPINES SCREEN,U Negative Normal NEGATIVE [facility] Comment on above: Result Comment: CUTO FF LEVEL: 200 NG/ML Performed By: #### D RUG3 #### [address] [address] CANNABINOIDS SCREEN,U Negative Normal NEGATIVE [facility] Comment on above: Result Comment: CUTO FF LEVEL: 50 NG/ML Performed By: #### D RUG3 #### [address] [address] COCAINE METABOLITE SCREEN,U Negative Normal NEGATIVE [facility] Comment on above: Result Comment: CUTO FF LEVEL: 150 NG/ML Performed By: #### D RUG3 #### [address] [address] DRUG SCREEN COMMENT SEE BELOW Normal [facility] Comment on above: Result Comment: Drug screen results are presumptive and should not be used to assess compliance with prescribed medication. Contact the performing [facility] laboratory to add-on definitive confirmatory testing if clinically indicated. . Toxicology screening results are reported qualitatively. The concentration must be greater than or equal to the cutoff to be reported as positive. The concentration at which the screening test can detect an individual drug or metabolite varies. The absence of expected drug(s) and/or drug metabolite(s) may indicate non-compliance, inappropriate timing of specimen collection relative to drug administration, poor drug absorption, diluted/adulterated urine, or limitations of testing. For medical purposes only; not valid for forensic use. . Interpretive questions should be directed to the laboratory medical directors. Performed By: #### D RUG3 #### [place] [address] FENTANYL SCREEN,URINE Negative Normal NEGATIVE [facility] Comment on above: Result Comment: CUTO FF LEVEL: 5 NG/ML Performed By: #### D RUG3 #### [address] [address] METHADONE SCREEN,U Negative Normal NEGATIVE [facility] Comment on above: Result Comment: CUTO FF LEVEL: 150 NG/ML The metabolite D-xqmyw-lhyqqirtavalzg (LAAM) is not detected by this method in concentrations that would be found in the urine of patients on LAAM therapy. Performed By: #### D RUG3 #### [place] [address] OPIATES SCREEN,U Negative Normal NEGATIVE [facility] Comment on above: Result Comment: CUTO FF LEVEL: 300 NG/ML The opiate screen does not detect fentanyl, meperidine, or tramadol. Oxycodone is not consistently detected (refer to Oxycodone Screen, Urine result). Performed By: #### D RUG3 #### [place] [address] OXYCODONE SCREEN,U Negative Normal NEGATIVE [facility] Comment on above: Result Comment: CUTO FF LEVEL: 100 NG/ML This test will accurately detect both oxycodone and oxymorphone. Performed By: #### D RUG3 #### [place] [address] PCP SCREEN,U Negative Normal NEGATIVE [facility] Comment on above: Result Comment: CUTO FF LEVEL: 25 NG/ML Cross-reactivity has been reported with dextromethorphan. Performed By: #### D RUG3 #### [place] [address] EMR ADDONon 12-17-2021 ADDON CONFIRMATION REQUEST REC'D Normal [facility] Comment on above: Performed By: #### E MRAD #### [facility] [address] [place] [address] HCG,URINEon 12-17-2021 Beta HCG ( test) Ql (U) Negative Normal Negative [facility] Comment on above: Performed By: #### H CGU ####[place] [address] MAGNESIUMon 12-17-2021 Magnesium [Mass/Vol] 1.85 mg/dL Normal 1.60 - 2.40 [facility] Comment on above: Performed By: #### M G #### [place] [address] Provider Note - ED v3on 11-23 Provider Note - ED v3 Provider Note: Chart Review: ED NOTES ED NOTES: HISTORY OF PRESENT ILLNESS: Patient is a 16-year-old with history of bipolar disorder who presents the emergency department for overdose. Patient states that at 9:45 PM, she had taken 30 tablets of 25 mg hydroxyzine. Patient had became nauseous. At the same time, she also made several superficial lacerations to the patient's thigh. Patient denies any other symptoms such as headache, lightheadedness, nausea, vomiting, Past Medical History: Bipolar disorder, anxiety Past Surgical History: Denied Family History: family history not pertinent to presenting problem or chief complaint Social History: Cigarette smoking and EtOH use REVIEW OF SYSTEMS: (Bold = Positive) Pertinent positive and negatives noted above. 14 point review of systems otherwise negative. PHYSICAL EXAM: Appearance: Alert, oriented , cooperative Skin: Multiple linear lacerations to the right anterior thigh, all superficial, not gaping. Intact, dry skin, no lesions, rash, petechiae or purpura. Eyes: PERRLA, EOMs intact, Conjunctiva pink with no redness or exudates. HENT: Normocephalic, atraumatic. Nares patent Neck: Supple. Trachea at midline. Pulmonary: Lung sounds are clear bilaterally. There is no rales, rhonchi, or wheezing. Cardiac: Regular rate and rhythm, no rubs, murmurs, or gallops. No JVD, Abdomen: Abdomen is soft, nontender, and nondistended. No palpable organomegaly. No rebound or guarding. No CVA tenderness. Nonsurgical abdomen Genitourinary: Exam deferred. Musculoskeletal: no edema, pain, cyanosis, or deformity in extremities. Pulses full and equal. Neurological: Cranial nerves are grossly intact, grossly normal sensation, no weakness, no focal findings identified. Psychiatric: Appropriate mood and affect. MEDICAL DECISION MAKING: Patient was seen and examined for suicide attempt while taking hydroxyzine. Patient had no other acute injuries besides having superficial lacerations to the thigh. Bacitracin will be applied. Patient does not require primary repair for these. Patient was given a dose of Zofran and psychiatric medical clearance labs were obtained. I contacted poison control. They suggested that the patient will have a max symptoms at about 2 hours and will most likely have drowsiness and potential anticholinergic effect. They recommended a 6 to 8-hour observation period from time of ingestion. Patient's twelve-lead EKG interpreted myself shows sinus rhythm ventricular rate of 66, normal axis, normal MS interval of 158 ms, normal QRS duration of 82 ms, normal QTC of 448 ms, no ST elevations or depression. Patient's laboratory results were overall unremarkable. No coingestions. Patient is asymptomatic 1+ bacteria. test negative.At 0100 hrs., patient care was signed out to the overnight physician pending completion of observation. Had medical clearance followed by psychiatric evaluation. Please see his notes for patient's progress and final disposition [facility] HISTORY OF PRESENTING ILLNESS TRAVON is a 16 year old Female and was seen by me at 16-Dec-2021 22:35 for a chief complaint of (OD, took 30x 25mg hydroxyzine approx. 2144) . Other complaints include: superficial cuts to right upper thigh(1). Triage Information: Most recent Vital Sign Value Date Temp (F): 100.8 12-16-2021 22:36 Temp (C): 38.2 12-16-2021 22:36 Heart Rate (beats/min): 79 12-16-2021 22:36 Respirations (breaths/min): 16 12-16-2021 22:36 SpO2 (%): 99 12-16-2021 22:36 BP Systolic (mm Hg): 119 12-16-2021 22:36 BP Diastolic (mm Hg): 90 12-16-2021 22:36 PAST MEDICAL HISTORY ALLERGIES/INTOLERANC ES: No Known Allergies HEALTH HISTORY: No documented data. OUTPATIENT MEDICATIONS: Home Medications Review Status for Reconciliation: N/A Med Status: N/A No documented data. SIGNIFICANT EVENTS: Past Medical History Description:Depressi on DISPOSITION Diagnosis/Annotation : ED Dx Name:Overdose Code:T50.901A Name:Laceration of right thigh, initial encounter Code:S71.111A Disposition: HANDOFF Signed out to Incoming Provider: Dr Abdalla CONSULT CRITICAL CARE TIME Is this a critically ill patient: no Electronic Signatures: Chris Carrillo () (Signed 17-Dec-2021 00:27) Authored: ED Notes, HPI, PMH, Clinical Impression, Attestation, Chart Review, Scores Last Updated: 17-Dec-2021 00:27 by Chris Carrillo () References: 1. Data Referenced From Triage - ED 16-Dec-2021 22:36 Normal [facility] Triage - EDon 12-17-2021 Triage - ED Quick Triage: Are You no Are You Currently Breastfeedingno The patient and/or guardian verbally acknowledges placement for services into the following (when Urgent Care Service hours are operating):emergency department Chart Review: ARRIVAL INFORMATION Mode of Arrival: ambulance Agency Name: [facility] CHIEF COMPLAINT TRAVON STALLWORTH is a Female patient with a chief complaint of (OD, took 30x 25mg hydroxyzine approx. 2144). Other Complaints: superficial cuts to right upper thigh Triage Date/Time: 16-Dec-2021 22:36 JUN: 2 Pain Rating (0-10): 0 = None Vital Signs: Temperature: 100.8F ( 38.2C) taken noncontact, forehead Blood Pressure: 119/90 Mean: Heart Rate: 79 Respiratory Rate: 16 Pulse Oximetry: 99% on room air, no respiratory support. Height: 5 feet 9.00 inches. 175.2 CM Weight: 145.2 pounds. Calculated 65.9 kg. Calculated BMI (kg/m2): 21.469 Calculated BSA (m2) 1.79 [place] Coma Scale: Best Eye Response: (E4) spontaneous Best Motor Response: (M6) obeys commands Best Verbal Response: (V5) oriented Fidencio Score: 15 Cough lasting greater than 3 weeks: no Allergies: no Patient has homicidal thoughts: yes Risk Screens Suicide Risk Screen In the Past Month: Have you wished you were or wished you could go to sleep and not wake up yes In the Past Month: Have you had any actual thoughts of killing yourself yes In the Past Month: Have you been thinking about how you might do this yes In the Past Month: Have you had these thoughts and had some intention of acting on them yes In the Past Month: Have you started to work out or worked out the details of how to kill yourself Do you intend to carry out this plan no In Your Lifetime: Have you ever done anything, started to do anything, or prepared to do anything to end your life yes Was this within the past 3 months yes Suicide Risk Interventions Low Suicide Risk Interventions: consider behavioral health resources will be given at discharge Moderate Suicide Risk Interventions: Interventions initiated: comfort care provided, items from room which may be used to harm self removed, patient placed in an easily observable room with curtain remaining open, patient placed in gown and wanded, provider notified, remaining risks identified and mitigated, therapeutic diversion offered (puzzles, games, journaling, TV blank box) elopement risk identified; family/visitor advised to maintain control of own personal belongings in room; finger food diet enforced; hourly behavioral assessment performed; patient observer at bedside, verbal handoff given and personal belongings secured ancillary staff and police/security notified of elopement risk High Suicide Risk Interventions: patient under constant observation at all timesicon high Items removed from room: bedside table/carts, bulletin board push pins and tasks, cleaning solutions/chemicals, coat hangers, gloves, IV poles, linen bin, loose cords (monitor cords, electric, tubing), otoscope, oxygen/oxygen canister, plastic bags (including trash bags), suction regulators, sharp or glass objects, sharps container, and scissors; bulletin board push pins and tasks; coat hangers; IV poles; linen bin; sharp or glass objects; scissors; computer and telephone Remaining risks identified and mitigated: bed/stretcher; call light cords; ceiling tiles; electrical outlets and monitors and cords Warren Fall Scale Screening Has the patient fallen before (or is the patient in the ED as a result of a fall) has not had a fall Does the patient have an impaired gait does not have impaired gait Is the patient cognitively impaired not cognitively impaired Interventions: Warren Fall Interventions: LOW INTERVENTIONS: *patient oriented to surroundings and call system, * patient/family falls education completed and documented, *patients fall status communicated during bedside handoff, *whiteboard updated, *mode of toileting discussed with patient, *bed in low position with brakes locked, *call light in reach, * non-skid footwear TRAVEL HISTORY Travel History Coronavirus Screening: no exposure or symptoms Travel Exposure History: NO travel to International locations in the past 30 days PAIN Pain Scale Used: MARISA Pain Rating (0-10): 0 = None Past Medical History: Past Medical History Reviewedyes Depression: Past Medical History, Active Electronic Signatures: Denisse Nelson (RN) (Signed 16-Dec-2021 22:43) Entered: Risk Screens, Pain, Travel History, Chart Review, Past Medical History Authored: Quick Triage, Risk Screens, Pain, Travel History, Chart Review, Past Medical History Last Updated: 16-Dec-2021 22:43 by Denisse Nelson (ISAI) Normal [facility] UA MICROSCOPICon 12-17-2021 BACTERIA 1+ /HPF Abnormal [facility] Comment on above: Performed By: #### U AMIC #### [place] [address] Mucus Ql (Urine sed) 4+ /LPF Normal [facility] Comment on above: Performed By: #### U AMIC #### [address] [address] RBC 2 /HPF Normal 0-5 [facility] Comment on above: Performed By: #### U AMIC #### [address] [address] SQUAMOUS EPITH. CELLS 2 /HPF [facility] Comment on above: Performed By: #### U AMIC #### [address] [address] WBC 11 /HPF Abnormal 0-5 [facility] Comment on above: Performed By: #### U AMIC #### [address] [address] URINALYSISon 12-17-2021 Appearance (U) Hazy Normal CLEAR [facility] Comment on above: Performed By: #### U A #### [address] [address] Bilirubin Ql (U) Negative Normal NEGATIVE [place] /Port age [facility] Comment on above: Performed By: #### U A #### [address] [address] Color (U) Yellow Normal STRAW,YELLOW [place]/Por t age [facility] Comment on above: Performed By: #### U A #### [address] [address] Glucose Ql (U) Negative Normal NEGATIVE [place]/P ort age [facility] Comment on above: Performed By: #### U A #### [address] [address] Hemoglobin Ql (U) Negative Normal NEGATIVE [place] [facility] Comment on above: Performed By: #### U A #### [address] [address] Ketones Ql (U) Negative Normal NEGATIVE [place]/P ort age [facility] Comment on above: Performed By: #### U A #### [address] [address] Leukocyte esterase Test strip Ql (U) Trace Abnormal NEGATIVE [facility] Comment on above: Performed By: #### U A #### [address] [address] Nitrite Ql (U) Negative Normal NEGATIVE [place]/P ort [facility] Comment on above: Performed By: #### U A #### [address] [address] pH (U) 5.0 [pH] Normal 5.0 - 8.0 [facility]/Port age [facility] Comment on above: Performed By: #### U A #### [address] [address] Protein Ql (U) Negative Normal NEGATIVE [place]/P ort age [facility] Comment on above: Performed By: #### U A #### [address] [address] Specific gravity (U) [Rel density] 1.013 Normal 1.005 - 1.035 [facility]/Port age [facility] Comment on above: Performed By: #### U A #### [facility] [address] [place] [address] Urobilinogen (U) [Mass/Vol] mg/dL Normal 0.0 - 1.9 [facility] Comment on above: Performed By: #### U A #### [facility] [address] [place] [address] URINE CULTURE,BACTERIALon URINE CULTURE,BACTERIAL PATIENT: TRAVON STALLWORTH LOCATION: CECILY THOMAS#: [id number] : 1 AGE: SEX: F ORDERED BY: CHRIS CARRILLO SOURCE: URINE COLLECTED: 12/16/21 22:57 ANTIBIOTICS AT [facility].: RECEIVED : 12/18/21 02:49 SITE: R E S U L T S URINE CULTURE,BACTERIAL FINAL 12/19/21 08:42 NO SIGNIFICANT GROWTH. Normal [facility] Comment on above: Performed By: #### U [facility] #### [facility] [address] [place] [address] CBC AUTO DIFFon 09-13-2018 Basophils (Bld) [#/Vol] 0.1 103/ul Normal 0.0-0.1 [facility] Comment on above: Performed By: #### C BC #### [facility] [address] [place] [address] Silvia Jen Basophils/100 WBC (Bld) 1.1 % Normal 0.2-2.0 [facility] Comment on above: Performed By: #### C BC #### [facility] [address], [place] [address] Silvia Jen Eosinophils (Bld) [#/Vol] 0.2 103/ul Normal 0.0-0.7 [facility] Comment on above: Performed By: #### C BC #### [facility] [address], [place] [address] Silvia Ejn Eosinophils/100 WBC (Bld) 2.6 % Normal 0.9-7.0 [facility] Comment on above: Performed By: #### C BC #### [facility] [address] [place] [address] Silvia Jen Erythrocyte distribution width (RBC) [Ratio] 12.9 % Normal 11.0-15.0 [facility] Comment on above: Performed By: #### C BC #### [facility] [address] [place] [address] Silvia Jen Hematocrit (Bld) [Volume fraction] 43.7 % Normal 36.0-48.0 [facility] Comment on above: Performed By: #### C BC #### [facility] [address] [place] [address] Silvia Jen Hemoglobin (Bld) [Mass/Vol] 14.2 g/dL Normal 12.0-16.0 [facility] Comment on above: Performed By: #### C BC #### [facility] [address] [place] [address] Silvia Jen IG # 0.02 10e3/ul Normal 0.00-0.03 [facility] Comment on above: Performed By: #### C BC #### [facility] [address] [place] [address] Silvia Jen IG % 0.3 % Normal 0.0-0.5 [facility] Comment on above: Performed By: #### C BC #### [facility] [address] [place], [place] [id number] Silvia Jen Lymphocytes (Bld) [#/Vol] 2.0 103/ul Normal 1.2-3.8 [facility] Comment on above: Performed By: #### C BC #### [facility] [address] [place], [place] [id number] Silvia Jen Lymphocytes/100 WBC (Bld) 25.4 % Normal 20.5-60.0 [facility] Comment on above: Performed By: #### C BC #### [facility] [address] [place], [place] [id number] Silvia Jen MANUAL DIFF REQ NO Normal [facility] Comment on above: Performed By: #### C BC #### [facility] [address] [place], [place] [id number] Silvia Jen MCH (RBC) [Entitic mass] 28.0 pg Normal 26.7-34.0 [facility] Comment on above: Performed By: #### C BC #### [facility] [address] [place], [place] [id number] Silvia Li MCHC (RBC) [Mass/Vol] 32.5 g/dL Normal 29.9-35.2 [facility] Comment on above: Performed By: #### C BC #### [facility] [address] [place], [place] [id number] Silvia Li MCV (RBC) [Entitic vol] 86.0 fL Normal 79.1-95.6 [facility] Comment on above: Performed By: #### C BC #### [facility] [address] [place] [address] Silvia Jen Monocytes (Bld) [#/Vol] 0.5 103/ul Normal 0.3-0.8 [facility] Comment on above: Performed By: #### C BC #### [facility] [address] [place], [place] [id number] Silvia Li Monocytes/100 WBC (Bld) 6.6 % Normal 1.7-12.0 [facility] Comment on above: Performed By: #### C BC #### [facility] [address] [place], [place] [id number] Silvia Li Neutrophils (Bld) [#/Vol] 5.0 103/ul Normal 1.4-6.5 [facility] Comment on above: Performed By: #### C BC #### [facility] [address] [place] [address] Silvia Li Neutrophils/100 WBC (Bld) 64.0 % Normal 43.0-75.0 [facility] Comment on above: Performed By: #### C BC #### [facility] [address] [place], [place] [id number] Silviayvan Li Platelet mean volume (Bld) [Entitic vol] 9.6 fL Normal 9.5-13.5 [facility] Comment on above: Performed By: #### C BC #### [facility] [address] [place] [id number] Silviayvan Li Platelets (Bld) [#/Vol] 332 103/ul Normal 150-450 T [facility] Comment on above: Performed By: #### C BC #### [facility] [address] [id number] Silviayvan Li RBC (Bld) [#/Vol] 5.08 106/ul Normal 3.40-5.30 [facility] Comment on above: Performed By: #### C BC #### [facility] [address] [id number] Silviayvan Li WBC (Bld) [#/Vol] 7.8 103/ul Normal 4.0-11.0 [facility] Comment on above: Performed By: #### C BC #### [facility] [address] [place], [place] [id number] Silvia Jen DRUG SCREEN RAPID (URINE)on 09-13-2018 AMP Negative Normal NEGATIVE [facility] Comment on above: Performed By: #### D RUGRPD #### [facility] [address] [place] [address] Silvia Jen BAR Negative Normal NEGATIVE [facility] Comment on above: Performed By: #### D RUGRPD #### [facility] [address] [place], [place] [id number] Silvia Jen BUP Negative Normal NEGATIVE [facility] Comment on above: Performed By: #### D RUGRPD #### [facility] [address] [place] [address] Silvia Jen BZO Negative Normal NEGATIVE [facility] Comment on above: Performed By: #### D RUGRPD #### [facility] [address] [id number] Silvia Jen ESTRELLA Negative Normal NEGATIVE [facility] Comment on above: Performed By: #### D RUGRPD #### [facility] [address] [place], [place] [id number] Silvia Jen CUT-OFFS SEE BELOW Normal [facility] Comment on above: Result Comment: AMP (Amphetamine): 500ng/mL, BAR (Barbituates): 200 ng/mL, BZO (Benzodiazepines): 150 ng/mL, BUP (Buprenorphine): 10 ng/mL, ESTRELLA (Cocaine): 150 ng/mL, mAMP (Methamphetamine): 500 ng/mL, MTD (Methadone): 200 ng/mL, OPI (Opiates): 100 ng/mL or 2000 ng/mL, OXY (Oxycodone): 100 ng/mL, PCP (Phencyclidine): 25 ng/mL, PPX (Propoxyphene): 300 ng/mL, THC (Cannabinoids): 50 ng/mL, TCA (Trycyclic Antidepressants): 300 ng/mL Performed By: #### D RUGRPD #### [facility] [address] [place] [address] DRUG CUT HEADER DRUG CLASS TEST SYSTEM CUT-OFF CONCENTRATIONS ARE FOLLOWS: Normal [facility] Comment on above: Performed By: #### D RUGRPD #### [facility] [address] [place] [address] Silvia Jen mAMP Negative Normal NEGATIVE [facility] Comment on above: Performed By: #### D RUGRPD #### [facility] [address] [place] [address] Silvia Jen MTD Negative Normal NEGATIVE [facility] Comment on above: Performed By: #### D RUGRPD #### [facility] [address] [place] [address] Silvia Jen OPI Negative Normal NEGATIVE [facility] Comment on above: Performed By: #### D RUGRPD #### [facility] [address] [place] [address] Silvia Jen OXY Negative Normal NEGATIVE [facility] Comment on above: Performed By: #### D RUGRPD #### [facility] [address] [place] [address] PCP Negative Normal NEGATIVE [facility] Comment on above: Performed By: #### D RUGRPD #### [facility] [address] [place] [address] PPX Negative Normal NEGATIVE [facility] Comment on above: Performed By: #### D RUGRPD #### [facility] [address] [id number] Silviayvan Li TCA Negative Normal NEGATIVE [facility] Comment on above: Performed By: #### D RUGRPD #### [facility] [address] [place] [address] Silvia Li THC Negative Normal NEGATIVE [facility] Comment on above: Performed By: #### D RUGRPD #### [facility] [address] [place] [address] Silvia Li MAGNESIUMon 09-13-2018 Magnesium [Mass/Vol] 1.9 mg/dL Normal 1.6-2.3 [facility] Comment on above: Performed By: #### C MP #### [facility] [address] [place] [address] Silvia Li PHOSPHORUSon 09-13-2018 Phosphate [Mass/Vol] 4.4 mg/dL Normal 2.5-4.5 [facility] Comment on above: Performed By: #### C MP #### [facility] [address] [place] [address] Silvia Li PREALBUMINon 09-13-2018 Prealbumin [Mass/Vol] 36.3 mg/dL Critically high 12.8-34.2 [facility] Comment on above: Performed By: #### C MP #### [facility] [address] [place] [address] Silvia Li URon 09-13-2018 , QUAL Negative Normal NEGATIVE [facility] Comment on above: Performed By: #### P REGU #### [facility] [address] [place] [address] Silvia Li PROF 14(COMP METB)on 019 Albumin [Mass/Vol] 4.7 g/dL Normal 3.5-5.0 [facility] Comment on above: Performed By: #### C MP #### [facility] [address] [place] [address] Silvia Li Albumin/Globulin [Mass ratio] 1.3 {ratio} Normal [facility] Comment on above: Performed By: #### C MP #### [facility] [address] [phone] Silvia Jen ALP [Catalytic activity/Vol] 85 U/L Critically low 130-525 [facility] Comment on above: Performed By: #### C MP #### [facility] [address] [place], [place] [phone] Silvia Jen ALT [Catalytic activity/Vol] 21 U/L Normal 9-52 [facility] Comment on above: Performed By: #### C MP #### [facility] [address] [place], [place] [phone] Silvia Jen Anion gap [Moles/Vol] 11.4 mmol/L Normal Th [facility] Comment on above: Performed By: #### C MP #### [facility] [address] [place] [address] Silvia Jen AST [Catalytic activity/Vol] 17 U/L Normal 14-36 [facility] Comment on above: Performed By: #### C MP #### [facility] [address] [place], [place] [id number] Silvia Jen Bilirubin Ql (U) 0.7 mg/dL Normal 0.2-1.3 [facility] Comment on above: Performed By: #### C MP #### [facility] [address] [place], [place] [id number] Silvia Jen Calcium [Mass/Vol] 9.8 mg/dL Normal 8.4-10.2 [facility] [place] [facility] Comment on above: Performed By: #### C MP #### [facility] [address] [place], [place] [phone] Silvia Jen Chloride [Moles/Vol] 100 mmol/L Normal 98-107 [facility] Comment on above: Performed By: #### C MP #### [facility] [address] [place], [place] [phone] Silvia Jen CO2 [Moles/Vol] 29.8 mmol/L Normal 22.0-30.0 [facility] Comment on above: Performed By: #### C MP #### [facility] [address] [place], [place] [id number] Silvia Jen Creatinine [Mass/Vol] 0.94 mg/dL Normal 0.52-1.04 [facility] Comment on above: Performed By: #### C MP #### [facility] [address] [id number] Silvia Jen Globulin (S) [Mass/Vol] 3.5 g/dL Normal T [facility] Comment on above: Performed By: #### C MP #### [facility] [address] [id number] Silvia Jen Glucose [Mass/Vol] 93 mg/dL Normal 74-106 [facility] [place] [facility] Comment on above: Performed By: #### C MP #### [facility] [address] [id number] Silvia Jen Potassium [Moles/Vol] 4.2 mmol/L Normal 3.4-5.0 [facility] Comment on above: Performed By: #### C MP #### [facility] [address] [place] [address] Silvia Jen Protein [Mass/Vol] 8.2 g/dL Normal 6.1-8.2 [facility] [place] [facility] Comment on above: Performed By: #### C MP #### [facility] [address] [phone] Silvia Jen Sodium [Moles/Vol] 137 mmol/L Normal 137-145 [facility] [place] [facility] Comment on above: Performed By: #### C MP #### [facility] [address] [phone] Silvia Jen Urea nitrogen [Mass/Vol] 14.0 mg/dL Normal 6.4-19.3 [facility] Comment on above: Performed By: #### C MP #### [facility] [address] [phone] Silvia Jen Urea nitrogen/Creatinine [Mass ratio] 14.9 mg/mg Normal [facility] Comment on above: Performed By: #### C MP #### [facility] [address] [place], [place] [id number] Silvia Jen TSHon 09-13-2018 TSH Qn SEE BELOW Normal [facility] Comment on above: Result Comment: <0.3 4 UIU/ml HYPERTHYROID 0.34-5.60 UIU/ml EUTHYROID >5.60 UIU/ml HYPOTHYROID Performed By: #### C MP #### [facility] [address] [place] [address] Silvia Jen TSH Qn 2.987 uIU/mL Normal 0.580-5.600 [facility] Comment on above: Performed By: #### C MP #### [facility] [address] [place] [address] Silvia Jen UA RANDOMon 09-13-2018 Bilirubin [Mass/Vol] Negative Normal NEGATIVE [facility] Comment on above: Performed By: #### U A #### [facility] [address] [place] [address] Silvia Jen BLOOD Negative Normal NEGATIVE [facility] Comment on above: Performed By: #### U A #### [facility] [address] [place] [address] Silvia Jen Clarity (U) CLEAR Normal [facility] Comment on above: Performed By: #### U A #### [facility] [address] [place] [address] Silvia Jen Color (U) LT. YELLOW Normal YELLOW [facility] Comment on above: Performed By: #### U A #### [facility] [address] [place] [address] Silvia Jen Glucose [Mass/Vol] Negative Normal NEGATIVE [facility] [place] [facility] Comment on above: Performed By: #### U A #### [facility] [address] [place] [address] Silvia Jen Ketones Ql (U) Negative Normal NEGATIVE [facility] Comment on above: Performed By: #### U A #### [facility] [address] [place] [address] Silvia Jen Nitrite Ql (U) Negative Normal NEGATIVE [facility] Comment on above: Performed By: #### U A #### [facility] [address] [place] [address] Silvia Jen pH (Bld) 6.0 Normal 5-9 [facility] Comment on above: Performed By: #### U A #### [facility] [address], [place] [address] Silvia Jen Protein [Mass/Vol] Negative Normal [facility] [place] [facility] Comment on above: Performed By: #### U A #### [facility] [address], [place] [address] Silvia Jen SPEC GRAVITY 1.025 Normal 1.005-<=1.025 [facility] Comment on above: Performed By: #### U A #### [facility] [address], [place] [address] Silvia Jen Urobilinogen Qn (U) 0.2 EU/dl Normal [facility] Comment on above: Performed By: #### U A #### [facility] [address], [place] [address] Silvia Jen WBC (Bld) [#/Vol] Negative Normal NEGATIVE [facility] Comment on above: Performed By: #### U A #### [facility] [address], [place] [address] Silvia Jen VIT B12 AND FOLATEon 019 Cobalamin (Vitamin B12) [Mass/Vol] 737.0 pg/mL Normal 239.0-931.0 [facility] Comment on above: Performed By: #### C MP #### [facility] [address] [place] [address] Silvia Jen FOLATE 19.50 ng/mL Normal >=2.76 [facility] Comment on above: Performed By: #### C MP #### [facility] [address] [place] [address] Silvia Jen VITAMIN D 25 OHon 09-13-2018 VIT D 25-OH 27.1 ng/mL Normal [facility] Comment on above: Performed By: #### C MP #### [facility] [address] [place], [place] [id number] Silvia Jen VIT D RANGES SEE BELOW Normal [facility] Comment on above: Result Comment: <20 ng/mL Vit D deficient 20 - <30 ng/mL Vit D insufficient 30 - 100 ng/mL Vit D sufficient >100 ng/mL Potential Toxicity Performed By: #### C MP #### [facility] [address] [place] [address] Silvia Li VITDH PLEASE NOTE: NORMAL RANGE CHANGE 12-27-2012, TESTING PERFORMED AT [facility]. Normal [facility] Comment on above: Performed By: #### C MP #### [facility] [address] [place] [address] Silviayvan Li ACETAMINOPHENon 08-15-2018 Acetaminophen [Mass/Vol] <1.0 Critically low 10.1-30.0 [facility] Comment on above: Performed By: #### A CET #### [facility] [address] [place] [address] Silviayvan Li CBC AUTO DIFFon 08-15-2018 Basophils (Bld) [#/Vol] 0.1 103/ul Normal 0.0-0.1 [facility] Comment on above: Performed By: #### C BC #### [facility] [address] [place] [address] Silvia Li Basophils/100 WBC (Bld) 0.9 % Normal 0.2-2.0 The [facility] Comment on above: Performed By: #### C BC #### [facility] [address] [place] [address] Silvia Jen Eosinophils (Bld) [#/Vol] 0.2 103/ul Normal 0.0-0.7 [facility] Comment on above: Performed By: #### C BC #### [facility] [address] [place] [address] Silvia iL Eosinophils/100 WBC (Bld) 2.9 % Normal 0.9-7.0 [facility] Comment on above: Performed By: #### C BC #### [facility] [address] [place], [place] [id number] Silvia Jen Erythrocyte distribution width (RBC) [Ratio] 13.0 % Normal 11.0-15.0 [facility] Comment on above: Performed By: #### C BC #### [facility] [address] [place] [address] Silvia Li Hematocrit (Bld) [Volume fraction] 44.1 % Normal 36.0-48.0 [facility] Comment on above: Performed By: #### C BC #### [facility] [address] [place] [address] Silvia Li Hemoglobin (Bld) [Mass/Vol] 14.3 g/dL Normal 12.0-16.0 [facility] Comment on above: Performed By: #### C BC #### [facility] [address] [place] [address] Silviayvan Li IG # 0.01 10e3/ul Normal 0.00-0.03 [facility] Comment on above: Performed By: #### C BC #### [facility] [address] [place] [address] Silvia Li IG % 0.1 % Normal 0.0-0.5 [facility] Comment on above: Performed By: #### C BC #### [facility] [address] [place] [address] Silvia Li Lymphocytes (Bld) [#/Vol] 2.3 103/ul Normal 1.2-3.8 [facility] Comment on above: Performed By: #### C BC #### [facility] [address] [place] [address] Silvia Li Lymphocytes/100 WBC (Bld) 28.9 % Normal 20.5-60.0 [facility] Comment on above: Performed By: #### C BC #### [facility] [address] [place] [address] Silvia Li MANUAL DIFF REQ NO Normal [facility] Comment on above: Performed By: #### C BC #### [facility] [address] [place], [place] [id number] Silvia Li MCH (RBC) [Entitic mass] 28.0 pg Normal 26.7-34.0 [facility] Comment on above: Performed By: #### C BC #### [facility] [address] [place] [address] Silvia Li MCHC (RBC) [Mass/Vol] 32.4 g/dL Normal 29.9-35.2 [facility] Comment on above: Performed By: #### C BC #### [facility] [address] [place] [id number] Silvia Jen MCV (RBC) [Entitic vol] 86.5 fL Normal 79.1-95.6 [facility] Comment on above: Performed By: #### C BC #### [facility] [address] [place], [place] [id number] Silvia Jen Monocytes (Bld) [#/Vol] 0.4 103/ul Normal 0.3-0.8 [facility] Comment on above: Performed By: #### C BC #### [facility] [address] [place], [place] [phone] Silvia Jen Monocytes/100 WBC (Bld) 5.6 % Normal 1.7-12.0 [facility] Comment on above: Performed By: #### C BC #### [facility] [address] [place], [place] [phone] Silvia Jen Neutrophils (Bld) [#/Vol] 4.8 103/ul Normal 1.4-6.5 [facility] Comment on above: Performed By: #### C BC #### [facility] [address] [place], [place] [phone] Silvia Jen Neutrophils/100 WBC (Bld) 61.6 % Normal 43.0-75.0 [facility] Comment on above: Performed By: #### C BC #### [facility] [address] [place], [place] [phone] Silvia Jen Platelet mean volume (Bld) [Entitic vol] 9.9 fL Normal 9.5-13.5 [facility] Comment on above: Performed By: #### C BC #### [facility] [address] [place], [place] [phone] Silvia Jen Platelets (Bld) [#/Vol] 262 103/ul Normal 150-450 [facility] Comment on above: Performed By: #### C BC #### [facility] [address] [place], [place] [phone] Silvia Jen RBC (Bld) [#/Vol] 5.10 106/ul Normal 3.40-5.30 [facility] Comment on above: Performed By: #### C BC #### [facility] [address] [place] [address] Silvia Li WBC (Bld) [#/Vol] 7.8 103/ul Normal 4.0-11.0 [facility] Comment on above: Performed By: #### C BC #### [facility] [address] [place] [address] Silvia Li DRUG SCREEN RAPID (URINE)on 08-15-2018 AMP Negative Normal NEGATIVE [facility] Comment on above: Performed By: #### D RUGRPD #### [facility] [address] [place] [address] Silvia Li BAR Negative Normal NEGATIVE [facility] Comment on above: Performed By: #### D RUGRPD #### [facility] [address] [place] [address] Silviayvan Irahetaen BUP Negative Normal NEGATIVE [facility] Comment on above: Performed By: #### D RUGRPD #### [facility] [address] [place] [address] Silvia Li BZO Negative Normal NEGATIVE [facility] Comment on above: Performed By: #### D RUGRPD #### [facility] [address] [place] [address] Silviayvan iL ESTRELLA Negative Normal NEGATIVE [facility] Comment on above: Performed By: #### D RUGRPD #### [facility] [address] [place] [address] Silvia Li CUT-OFFS SEE BELOW Normal [facility] Comment on above: Result Comment: AMP (Amphetamine): 500ng/mL, BAR (Barbituates): 200 ng/mL, BZO (Benzodiazepines): 150 ng/mL, BUP (Buprenorphine): 10 ng/mL, ESTRELLA (Cocaine): 150 ng/mL, mAMP (Methamphetamine): 500 ng/mL, MTD (Methadone): 200 ng/mL, OPI (Opiates): 100 ng/mL or 2000 ng/mL, OXY (Oxycodone): 100 ng/mL, PCP (Phencyclidine): 25 ng/mL, PPX (Propoxyphene): 300 ng/mL, THC (Cannabinoids): 50 ng/mL, TCA (Trycyclic Antidepressants): 300 ng/mL Performed By: #### D RUGRPD #### [facility] [address] [place] [address] Silvia Jen DRUG CUT HEADER DRUG CLASS TEST SYSTEM CUT-OFF CONCENTRATIONS ARE FOLLOWS: Normal [facility] Comment on above: Performed By: #### D RUGRPD #### [facility] [address] [place] [address] Silvia Jen mAMP Negative Normal NEGATIVE [facility] Comment on above: Performed By: #### D RUGRPD #### [facility] [address] [place] [address] Silvia Jen MTD Negative Normal NEGATIVE [facility] Comment on above: Performed By: #### Lucila RUGRPD #### [facility] [address] [place] [address] Silvia Jen OPI Negative Normal NEGATIVE [facility] Comment on above: Performed By: #### D RUGRPD #### [facility] [address] [place] [address] Silvia Jen OXY Negative Normal NEGATIVE [facility] Comment on above: Performed By: #### D RUGRPD #### [facility] [address] [place] [address] Silvia Jen PCP Negative Normal NEGATIVE [facility] Comment on above: Performed By: #### D RUGRPD #### [facility] [address] [place] [address] Silvia Jen PPX Negative Normal NEGATIVE [facility] Comment on above: Performed By: #### D RUGRPD #### [facility] [address] [place] [address] Silvia Jen TCA Negative Normal NEGATIVE [facility] Comment on above: Performed By: #### D RUGRPD #### [facility] [address] [place] [address] Silvia Jen THC Negative Normal NEGATIVE [facility] Comment on above: Performed By: #### D RUGRPD #### [facility] [address] [id number] Silviayvan Li URon 08-15-2018 , QUAL Negative Normal NEGATIVE [facility] Comment on above: Performed By: #### P REGU #### [facility] [address] [place], [place] [phone] Silvia Li PROF 14(COMP METB)on 019 Albumin [Mass/Vol] 5.0 g/dL Normal 3.5-5.0 [facility] [place] [facility] Comment on above: Performed By: #### C MP #### [facility] [address] [place], [place] [phone] Silviayvan Li Albumin/Globulin [Mass ratio] 1.7 {ratio} Normal [facility] Comment on above: Performed By: #### C MP #### [facility] [address] [place] [address] Silvia Jen ALP [Catalytic activity/Vol] 108 U/L Critically low 130-525 [facility] Comment on above: Performed By: #### C MP #### [facility] [address] [place], [place] [phone] Silvia Jen ALT [Catalytic activity/Vol] 21 U/L Normal 9-52 [facility] Comment on above: Performed By: #### C MP #### [facility] [address] [place], [place] [phone] Silvia Jen Anion gap [Moles/Vol] 11.1 mmol/L Normal [facility] Comment on above: Performed By: #### C MP #### [facility] [address] [place], [place] [phone] Silvia Jen AST [Catalytic activity/Vol] 16 U/L Normal 14-36 [facility] Comment on above: Performed By: #### C MP #### [facility] [address] [place], [place] [phone] Silvia Jen Bilirubin Ql (U) 0.3 mg/dL Normal 0.2-1.3 [facility] Comment on above: Performed By: #### C MP #### [facility] [address] [id number] Silvia Jen Calcium [Mass/Vol] 9.7 mg/dL Normal 8.4-10.2 [facility] Comment on above: Performed By: #### C MP #### [facility] [address] [phone] Silvia Jen Chloride [Moles/Vol] 102 mmol/L Normal 98-107 [facility] Comment on above: Performed By: #### C MP #### [facility] [address] [phone] Silvia Jen CO2 [Moles/Vol] 29.4 mmol/L Normal 22.0-30.0 [facility] Comment on above: Performed By: #### C MP #### [facility] [address] [address] Silvia Jen Creatinine [Mass/Vol] 1.05 mg/dL Critically high 0.52-1.04 [facility] Comment on above: Performed By: #### C MP #### [facility] [address] [phone] Silvia Jen Globulin (S) [Mass/Vol] 3.0 g/dL Normal [facility] Comment on above: Performed By: #### C MP #### [facility] [address] [address] Silvia Jen Glucose [Mass/Vol] 103 mg/dL Normal 74-106 [facility] Comment on above: Performed By: #### C MP #### [facility] [address] [id number] Silvia Jen Potassium [Moles/Vol] 3.5 mmol/L Normal 3.4-5.0 [facility] Comment on above: Performed By: #### C MP #### [facility] [address] [phone] Silvia Jen Protein [Mass/Vol] 8.0 g/dL Normal 6.1-8.2 [facility] Comment on above: Performed By: #### C MP #### [facility] [address] [phone] Silvia Jen Sodium [Moles/Vol] 139 mmol/L Normal 137-145 [facility] [place] [facility] Comment on above: Performed By: #### C MP #### [facility] [address] [place], [place] [address] Silvia Jen Urea nitrogen [Mass/Vol] 21.0 mg/dL Critically high 6.4-19.3 [facility] Comment on above: Performed By: #### C MP #### [facility] [address] [phone] Silvia Jen Urea nitrogen/Creatinine [Mass ratio] 20.0 mg/mg Normal [facility] Comment on above: Performed By: #### C MP #### [facility] [address] [phone] Silvia Li SALICYLATEon 08-15-2018 SALICYLATE 0.7 mg/dL Normal <=20.0 [facility] Comment on above: Performed By: #### S ALYC #### [facility] [address] [place], [place] [address] Silvia Li Vital Signs Date Time Vital Sign Value Performing Clinician Facility 03-16-2024 06:40-0500 Diastolic blood pressure 65 mm[Hg] Roney SiC Processingrakola DO Work Phone: [facility] 03-16-2024 06:40-0500 Heart rate 72 /min [facility] SiC Processingrakola DO Work Phone: [facility] 03-16-2024 06:40-0500 Respiratory rate 16 /min Roney SiC Processingrakola DO Work Phone: [facility] 03-16-2024 06:40-0500 SaO2% (BldA) [Mass fraction] 98 % Roney SiC Processingrakola DO Work Phone: [facility] 03-16-2024 06:40-0500 Systolic blood pressure 106 mm[Hg] Roney SiC Processingrakola DO Work Phone: [facility] 03-16-2024 04:59-0500 Body height 175.3 cm Roney Mudrakola DO Work Phone: [facility] 03-16-2024 04:59-0500 Body mass index (BMI) [Ratio] 20.67 kg/m2 Roney Issa DO Work Phone: [facility] 03-16-2024 04:59-0500 Body temperature 99.3 [degF] Roney Issa DO Work Phone: [facility] 03-16-2024 04:59-0500 Body weight 63.5 kg Roney Issa DO Work Phone: [facility] 12-21-2021 08:11-0400 Body temperature 98.42 [degF] No Pcp Required [facility] 12-21-2021 08:11-0400 Diastolic blood pressure 77 mm[Hg] No Pcp Required [facility] 12-21-2021 08:11-0400 Diastolic blood pressure 72 mm[Hg] No Pcp Required [facility] 12-21-2021 08:11-0400 Heart rate 65 /min No Pcp Required [facility] 12-21-2021 08:11-0400 Heart rate 63 /min No Pcp Required [facility] 12-21-2021 08:11-0400 Respiratory rate 16 /min No Pcp Required [facility] 12-21-2021 08:11-0400 SaO2% (BldA) [Mass fraction] 94 % No Pcp Required [facility] 12-21-2021 08:11-0400 Systolic blood pressure 122 mm[Hg] No Pcp Required [facility] 12-21-2021 08:11-0400 Systolic blood pressure 116 mm[Hg] No Pcp Required [facility] Encounters Encounter Date Encounter Type Care Provider Facility Start: 04-05-2024 End: 04-05-2024 ambulatory ANTIONETTE BENITEZ Facility:[facility] Start: 04-05-2024 End: 04-08-2024 Telephone encounter Antionette Benitez DO Work Phone: [facility] Comment on above: Future Appointment ( Holter Monitor ) Start: 03-16-2024 End: 03-16-2024 Emergency department patient visit Roney Issa DO Work Phone: [facility] Comment on above: Acute cystitis with hematuria (Primary Dx); Pyelonephritis Start: 02-07-2024 End: 02-07-2024 ambulatory JULIUS Sevilla SHARYN [facility] Start: 02-07-2024 Encounter for gynecological examination (general) (routine) without abnormal findings [facility] Start: 11-30-2023 End: 11-30-2023 ambulatory [facility] Start: 11-30-2023 ambulatory [facility] Start: 11-30-2023 Encounter for genera l adult medical examination without abnormal findings [facility] Start: 12-17-2021 End: 12-21-2021 Evaluation and management of inpatient Edna Kurtz Inpt 2N Rm 205 B Start: 09-13-2018 End: 09-14-2018 Patient encounter procedure [facility] Facility:[facility] Start: 08-15-2018 End: 08-16-2018 Patient encounter procedure AYAAN CASTRO Facility:[facility] Procedures Date Procedure Procedure Detail Performing Clinician Start: 03-16-2024 Urine test visual color cmprsn meths Roney Luis Manuel DO Work Phone: Start: 03-16-2024 Urnls dip stick/tabl et reagent auto microscopy Leeroy Baltazar DO Work Phone: Plan of Treatment Date Care Activity Detail Author Start: 10-19-2078 RSV Immunization for Adults (1 - 1-dose 75+ series) RSV Immunization for Adults (1 - 1-dose 75+ series) [facility] Start: 10-19-2053 Zoster Vaccines (1 of 2) Zoste r Vaccines (1 of 2) [facility] Start: 11-29-2033 DTaP/Tdap/Td Vaccine s (8 - Td or Tdap) DTaP/Tdap/Td Vaccines (8 - Td or Tdap) [facility] Start: 11-29-2033 Urine microalbumin profile DTaP,Tdap,Td Vaccine (8 - Td or Tdap) [facility] Start: 05-06-2024 End: 05-06-2024 Patient encounter procedure 05/06/2024 9:40 AM EST Office Visit [facility] [address] [place] [address] Antionette Benitez DO [address] [place] [address] 1 mo follow up [facility] Comment on above: 1 mo follow up Start: 04-10-2024 End: 04-10-2024 Nursing evaluation of patient and report 04/10/2024 1:00 PM EST Nurse Visit [facility] [address] [place] [address] [facility], Nurse Famp Teddy Kinsman [address] [place] [address] Holter Monitor 48hr [facility] Comment on above: Holter Monitor 48hr Start: 12-24-2023 COVID-19 Vaccine ( season) COVID-19 Vaccine ( season) [facility] Start: 12-24-2023 Influenza vaccination Influenza Vacc ine (#1) [facility] Start: 12-17-2021 End: 12-18-2022 [facility] Start: 10-19-2021 Depression Screening Depression Scre ening [facility] Start: 10-19-2021 GC (Gonorrhea) Scree angella (24) GC (Gonorrhea) Screening (-) [facility] Start: 10-19-2021 Hepatitis C screening Hepatitis C Sc reening [facility] Start: 10-19-2021 HIV screening HIV Screening [facility] Start: 10-19-2021 Screening for Chlamy mike trachomatis Chlamydia Screening () [facility] Start: 10-19-2017 Peds To Adult Transi tion Annual Assessment Peds To Adult Transition Annual Assessment [facility] Start: 2015 Depression Screening Depression Scre ening [facility] Start: 2015 Peds To Adult Transi tion Initial Discussion Peds To Adult Transition Initial Discussion [facility] Start: 2003 HIV screening HIV Screening [facility] [place] [facility] Immunizations Immunization Date Immunization Notes Care Provider Gavin jiang 11-30-2023 tetanus toxoid, redu mami diphtheria toxoid, and acellular pertussis vaccine, adsorbed Antionette Benitez DO Work Phone: [facility] 02-23-2021 influenza, injectabl e, quadrivalent, preservative free Antionette Benitez DO Work Phone: [facility] 02-23-2021 influenza virus vacc ine, unspecified formulation Roney Moustapharakola DO Work Phone: [facility] 03-16-2020 meningococcal B vacc ine, recombinant, OMV, adjuvanted Antionette Benitez DO Work Phone: [facility] 02-10-2020 influenza, live, intranasal, quadrivalent Antionette Benitez DO Work Phone: [facility] 02-10-2020 meningococcal B vacc ine, recombinant, OMV, adjuvanted Antionette Benitez DO Work Phone: [facility] 02-10-2020 meningococcal oligosaccharide (groups A, C, Y and W-135) diphtheria toxoid conjugate vaccine (MCV4O) Antionette Bentiez DO Work Phone: [facility] 02-13-2018 Human Papillomavirus 9-valent vaccine Antionette Benitez DO Work Phone: [facility] 02-13-2018 influenza, injectabl e, quadrivalent, preservative free Antionette Benitez DO Work Phone: [facility] 02-13-2017 Human Papillomavirus 9-valent vaccine Antionette Benitez DO Work Phone: [facility] 02-13-2017 influenza, injectabl e, quadrivalent, preservative free Antionette Benitez DO Work Phone: [facility] 06-11-2015 influenza virus vacc ine, unspecified formulation Antionette Benitez DO Work Phone: [facility] 03-23-2015 influenza virus vacc ine, unspecified formulation Antionette Benitez DO Work Phone: [facility] 03-23-2015 meningococcal oligosaccharide (groups A, C, Y and W-135) diphtheria toxoid conjugate vaccine (MCV4O) Antionette Benitez DO Work Phone: [facility] 12-02-2013 tetanus toxoid, redu mami diphtheria toxoid, and acellular pertussis vaccine, adsorbed Antionette Benitez DO Work Phone: [facility] 10-23-2012 hepatitis A vaccine, adult dosage Antionette Benitez DO Work Phone: [facility] 01-17-2012 hepatitis A vaccine, adult dosage Antionette Benitez DO Work Phone: [facility] 10-22-2007 diphtheria, tetanus toxoids and acellular pertussis vaccine Antionette Benitez DO Work Phone: [facility] 10-22-2007 measles, mumps and rubella virus vaccine Antionette Benitez DO Work Phone: [facility] 10-22-2007 poliovirus vaccine, inactivated Antionette Benitez DO Work Phone: [facility] 10-22-2007 varicella virus vaccine Floyd or Benitez DO Work Phone: [facility] 02-04-2006 influenza virus vacc ine, unspecified formulation Antionette Benitez DO Work Phone: [facility] 04-20-2005 diphtheria, tetanus toxoids and acellular pertussis vaccine Antionette Benitez DO Work Phone: [facility] 01-19-2005 haemophilus influenz ae type b vaccine, conjugate unspecified formulation Antionette Benitez DO Work Phone: [facility] 01-19-2005 measles, mumps and rubella virus vaccine Antionette Benitez DO Work Phone: [facility] 10-21-2004 pneumococcal conjuga te vaccine, 13 valent Antionette Benitez DO Work Phone: [facility] 10-21-2004 varicella virus vaccine Floyd or Benitez DO Work Phone: [facility] 07-16-2004 pneumococcal conjuga te vaccine, 13 valent Antionette Benitez DO Work Phone: [facility] 04-28-2004 diphtheria, tetanus toxoids and acellular pertussis vaccine Antionette Benitez DO Work Phone: [facility] 04-28-2004 haemophilus influenz ae type b vaccine, conjugate unspecified formulation Antionette Benitez DO Work Phone: [facility] 04-28-2004 hepatitis B vaccine, pediatric or pediatric/adolescent dosage Antionette Benitez DO Work Phone: [facility] 04-28-2004 poliovirus vaccine, inactivated Antionette Benitez DO Work Phone: [facility] 03-15-2004 diphtheria, tetanus toxoids and acellular pertussis vaccine Antionette Benitez DO Work Phone: [facility] 03-15-2004 haemophilus influenz ae type b vaccine, conjugate unspecified formulation Antionette Benitez DO Work Phone: [facility] 03-15-2004 hepatitis B vaccine, pediatric or pediatric/adolescent dosage Antionette Benitez DO Work Phone: [facility] 03-15-2004 pneumococcal conjuga te vaccine, 13 valent Antionette Benitez DO Work Phone: [facility] 03-15-2004 poliovirus vaccine, inactivated Antionette Benitez DO Work Phone: [facility] 01-06-2004 diphtheria, tetanus toxoids and acellular pertussis vaccine Antionette Benitez DO Work Phone: [facility] 01-06-2004 haemophilus influenz ae type b vaccine, conjugate unspecified formulation Antionette Benitez DO Work Phone: [facility] 01-06-2004 hepatitis B vaccine, pediatric or pediatric/adolescent dosage Antionette Benitez DO Work Phone: [facility] 01-06-2004 pneumococcal conjuga te vaccine, 13 valent Antionette Benitez DO Work Phone: [facility] 01-06-2004 poliovirus vaccine, inactivated Antionette Benitez DO Work Phone: [facility] 2003 hepatitis B vaccine, pediatric or pediatric/adolescent dosage Antionette Benitez DO Work Phone: [facility] Payers Date Payer Category Payer Unknown 2003 Unknown [id number] [id number] 2003 Unknown [id number] [id number] 2003 Unknown [id number] [id number] 1973 Unknown [id number] [id number] [id number] 1973 Unknown [id number] [id number] [id number] 1959 Unknown [id number] Social History Date Type Detail Facility [facility] Tobacco smoking consumption unknown [facility] Start: 03-16-2024 End: 04-05-2024 History of Social function [facility] Start: 03-16-2024 End: 04-05-2024 Alcohol Use Disorder Identification Test - Consumption [AUDIT-C] [facility] How often to you hav e a drink containing alcohol? Monthly or less [facility] How many standard dr inks containing alcohol do you have on a typical day? 3 or 4 [facility] How often do you hav e 6 or more drinks on 1 occasion? Never [facility] Start: 2003 Sex assigned at Not on file [facility] Start: 03-16-2024 Sex Female (finding) [facility] Start: 04-05-2024 Tobacco smoking status NHIS Ex-smoker [facility] History of tobacco use Current smoker [facility] History of tobacco use Cigarette Smoker [facility] Start: 04-05-2024 Tobacco use and exposure Smokeless tobacco non-user [facility] Start: 12-13-2024 Alcoholic beverage intake Current drinker of alcohol (finding) [facility] National Score (1-10 0), lower number is lower risk 80 [facility] Start: 04-05-2024 Alcohol Comment socially [facility] Functional Status Date Assessment Result Facility Functional observable [facility] Mental Status Date Assessment Result Facility 12-17-2021 Cognitive functions 05885:30 [facility] Telephone encounter Note 04-08-2024 Telephone Encounter - Benjy Gordon - 04/08/2024 9:29 AM EST Note Date & Type Note Facility 04-08-2024 Telephone encount er Note Called and scheduled patient for 04/10. [facility] Note 04-08-2024 Telephone Encounter - Benjy Gordon - 04/08/2024 9:29 AM ESTTelephone Encounter - Vanda Fritz - 04/05/2024 3:43 PM EST Note Date & Type Note Facility 04-08-2024 Miscellaneous Notes Formattin g of this note might be different from the original. Called and scheduled patient for 04/10. Jen at [facility] [address] office Needing to bee set up with a 48 hour Holter Monitor Please call the patient at the home number confirmed by the office documented in this encounter [facility] Telephone encounter Note 04-05-2024 Telephone Encounter - Vanda Fritz - 04/05/2024 3:43 PM EST Note Date & Type Note Facility 04-05-2024 Telephone encount er Note Jen at [facility] [address] office Needing to bee set up with a 48 hour Holter Monitor Please call the patient at the home number confirmed by the office [facility] Discharge instructions 03-16-2024 Discharge InstructionsAttachments Note Date & Type Note Facility 03-16-2024 Hospital Discharg e instructions Leeroy Baltazar DO - 03/16/2024 6:24 AM EST Please take the prescribed antibiotics prescribed to you today. You will need to take them for 10 days. Have also prescribed Pyridium which you can use to help with any pain on urination. Take this up to 3 times a day as needed. Please follow-up with your primary care doctor or come back to the ED if your symptoms do not resolve once you have finished the antibiotics. The following attachments cannot be sent through Care Everywhere.Urinary Tract Infection Discharge Instructions, Adult (Emirati)documented in this encounter [facility] Emergency department Note 03-16-2024 Leeroy Baltazar DO - 03/16/2024 4:57 AM EST Note Date & Type Note Facility 03-16-2024 Emergency departm ent Note EMERGENCY DEPARTMENT ENCOUNTER Pt Name: Travon Stallworth Birthdate 2005 Date of evaluation: 03/16/2024 ED Provider: LEEROY BALTAZAR DO CHIEF COMPLAINT Chief Complaint Patient presents with Female Dysuria Pt presents to the ed w painful, burning and bloody urine x 1 day via squad. Ems reports pt was found at a closed urgent care to be seen for the complaints but once she arrived and seen they were the boyfriend called the squad. Pt answers all questions appropriately but delayed response. EMS reports pt smoked a blunt for the pain but made things worse. Pt is A&O x 3 with a GCS of 15. Pt is without distress and has a steady gait. HISTORY OF PRESENT ILLNESS (Location/Symptom, Timing/Onset, Context/Setting, Quality, Duration, Modifying Factors, Severity) Note limiting factors. I wore appropriate PPE for the entirety of this encounter. HPI Travon Stallworth is a 18 y.o. who presents to the emergency department complaining of bloody painful urination. Patient went to an urgent care that was close so then boyfriend called squad to bring her to the ED. Here patient does not have any aaron hematuria but does have some left lower quadrant pain. She does not have any fever, chills, nausea, vomiting or diarrhea. Does not take control but denies any possibility of . She says she did have a menstrual cycle this month that lasted 10 days. This was preceded by a 2-month period of amenorrhea. This is abnormal for her as usually she has regular cycles every month. Otherwise has no complaints. Nursing Notes were reviewed. Limitations to history: None Outside historians: Significant other REVIEW OF SYSTEMS Review of Systems Pertinent positives and negatives as per HPI. PAST MEDICAL HISTORY No past medical history on file. SURGICAL HISTORY No past surgical history on file. CURRENT MEDICATIONS Previous Medications No medications on file ALLERGIES Patient has no known allergies. FAMILY HISTORY No family history on file. SOCIAL HISTORY Social History Socioeconomic History Marital status: Single SCREENINGS PHYSICAL EXAM ED Triage Vitals [03/16/24 0459] Temp Heart Rate Resp BP 37.4 C (99.3 F) 98 16 123/77 SpO2 Temp Source Heart Rate Source Patient Position 94 % Oral Monitor -- BP Location FiO2 (%) -- -- Physical Exam Constitutional: General: She is not in acute distress. Appearance: Normal appearance. HENT: Head: Normocephalic and atraumatic. Right Ear: External ear normal. Left Ear: External ear normal. Nose: No congestion or rhinorrhea. Mouth/Throat: Mouth: Mucous membranes are moist. Pharynx: Oropharynx is clear. Eyes: Extraocular Movements: Extraocular movements intact. Pupils: Pupils are equal, round, and reactive to light. Cardiovascular: Rate and Rhythm: Normal rate and regular rhythm. Pulses: Normal pulses. Heart sounds: Normal heart sounds. Pulmonary: Effort: Pulmonary effort is normal. No respiratory distress. Breath sounds: Normal breath sounds. Abdominal: General: Abdomen is flat. There is no distension. Palpations: Abdomen is soft. Tenderness: There is abdominal tenderness in the left lower quadrant. Musculoskeletal: General: No swelling or deformity. Normal range of motion. Cervical back: Normal range of motion. Skin: General: Skin is warm and dry. Capillary Refill: Capillary refill takes less than 2 seconds. Findings: No rash. Neurological: General: No focal deficit present. Mental Status: She is alert and oriented to person, place, and time. Mental status is at baseline. Psychiatric: Mood and Affect: Mood normal. Behavior: Behavior normal. DIAGNOSTIC RESULTS RADIOLOGY (Per Emergency Physician): Interpretation per the Radiologist below, if available at the time of this note: No orders to display LABS: Labs Reviewed COMPLETE URINALYSIS - Abnormal Result Value Color, Urine Light Yellow Clarity, Urine Turbid (*) pH, Urine 7.0 Leukocytes, Urine 500 (*) Nitrite, Urine Negative Protein, Urine 10 (*) Glucose, Urine Normal Bilirubin, Urine Negative Ketones, Urine Negative Urobilinogen, Urine Normal Blood, Urine 1.0 (*) RBC, Urine 11-25 (*) WBC, Urine >100 (*) Squamous Epithelial, Urine 0-2 Bacteria, Urine Few (*) Hyaline Casts, Urine Negative WBC Clumps, Urine Few (*) SPECIFIC GRAVITY OF URINE (NUMERIC) 1.005 HCG QUALITATIVE URINE HCG,URINE QUAL Negative Narrative: is the most common reason for HCG in urine, although choriocarcinoma, hydatidiform mole, and certain nontrophoblastic malignancies also result in detectable urinary HCG levels. Sensitivity = 20mIU/mL. All other labs were within normal range or not returned as of this dictation. EMERGENCY DEPARTMENT COURSE and DIFFERENTIAL DIAGNOSIS/MDM: Vitals: Vitals: 03/16/24 0459 BP: 123/77 Pulse: 98 Resp: 16 Temp: 37.4 C (99.3 F) TempSrc: Oral SpO2: 94% Weight: 63.5 kg (140 lb) Height: 1.753 m (5' 9 ) The patient presented with a chief complaint of hematuria, left lower quadrant pain. The differential diagnosis associated with this patient's presentation includes UTI, , pyelonephritis, other pelvic problem. Our workup consisted of ordering/reviewing urinalysis and urine . NC negative. Urinalysis shows 500 leukocytes, no signs of contamination, bacteria and white blood cells over 100 present. Given that she has some lower abdominal pain also concerned this may be the start of some pyelonephritis. Gave first dose of Keflex here in the ED and prescribed 10-day course along with some Pyridium for symptom control. Patient understands instructions has been given return precautions. Patient discharged. Diagnoses as of 03/16/24627 Acute cystitis with hematuria Pyelonephritis External records reviewed: none Diagnostics interpreted by me: none Discussions with other clinicians: none Chronic conditions impacting care: none Social determinants of health affecting care: none ED Medications managed: Medications cephalexin (Keflex) capsule 500 mg (has no administration in time range) phenazopyridine (Pyridium) tablet 200 mg (has no administration in time range) Prescription drugs considered: Keflex, Azo PROCEDURES: Unless otherwise noted below, none Procedures FINAL IMPRESSION 1. Acute cystitis with hematuria 2. Pyelonephritis DISPOSITION Discharge 03/16/2024 06:20:48 AM PATIENT REFERRED TO: No follow-up provider specified. DISCHARGE MEDICATIONS: New Prescriptions CEPHALEXIN (KEFLEX) 500 MG CAPSULE Take 1 capsule (500 mg) by mouth 4 times daily for 10 days. PHENAZOPYRIDINE (PYRIDIUM) 200 MG TABLET Take 1 tablet (200 mg) by mouth 3 times daily as needed for bladder spasms for up to 3 days. (Comment: Please note this report has been produced using speech recognition software and may contain errors related to that system including errors in grammar, punctuation, and spelling, as well as words and phrases that may be inappropriate. If there are any questions or concerns please feel free to contact the dictating provider for clarification.) LEEROY BALTAZAR DO (electronically signed) Emergency Medicine Provider Leeroy Baltazar DO Resident 03/16/24 0628 Cosigned by Roney Issa DO at 03/16/2024 8:30 AM EST documented in this encounter [facility] Physician Emergency department Note 03-16-2024 Leeroy Baltazar DO - 03/16/2024 4:57 AM EST Note Date & Type Note Facility 03-16-2024 Physician Emergen cy department Note EMERGENCY DEPARTMENT ENCOUNTER Pt Name: Travon Stallworth Birthdate 2005 Date of evaluation: 03/16/2024 ED Provider: LEEROY BALTAZAR DO CHIEF COMPLAINT Chief Complaint Patient presents with Female Dysuria Pt presents to the ed w painful, burning and bloody urine x 1 day via squad. Ems reports pt was found at a closed urgent care to be seen for the complaints but once she arrived and seen they were the boyfriend called the squad. Pt answers all questions appropriately but delayed response. EMS reports pt smoked a blunt for the pain but made things worse. Pt is A&O x 3 with a GCS of 15. Pt is without distress and has a steady gait. HISTORY OF PRESENT ILLNESS (Location/Symptom, Timing/Onset, Context/Setting, Quality, Duration, Modifying Factors, Severity) Note limiting factors. I wore appropriate PPE for the entirety of this encounter. HPI Travon Stallworth is a 18 y.o. who presents to the emergency department complaining of bloody painful urination. Patient went to an urgent care that was close so then boyfriend called squad to bring her to the ED. Here patient does not have any aaron hematuria but does have some left lower quadrant pain. She does not have any fever, chills, nausea, vomiting or diarrhea. Does not take control but denies any possibility of . She says she did have a menstrual cycle this month that lasted 10 days. This was preceded by a 2-month period of amenorrhea. This is abnormal for her as usually she has regular cycles every month. Otherwise has no complaints. Nursing Notes were reviewed. Limitations to history: None Outside historians: Significant other REVIEW OF SYSTEMS Review of Systems Pertinent positives and negatives as per HPI. PAST MEDICAL HISTORY No past medical history on file. SURGICAL HISTORY No past surgical history on file. CURRENT MEDICATIONS Previous Medications No medications on file ALLERGIES Patient has no known allergies. FAMILY HISTORY No family history on file. SOCIAL HISTORY Social History Socioeconomic History Marital status: Single SCREENINGS PHYSICAL EXAM ED Triage Vitals [03/16/24 0459] Temp Heart Rate Resp BP 37.4 C (99.3 F) 98 16 123/77 SpO2 Temp Source Heart Rate Source Patient Position 94 % Oral Monitor -- BP Location FiO2 (%) -- -- Physical Exam Constitutional: General: She is not in acute distress. Appearance: Normal appearance. HENT: Head: Normocephalic and atraumatic. Right Ear: External ear normal. Left Ear: External ear normal. Nose: No congestion or rhinorrhea. Mouth/Throat: Mouth: Mucous membranes are moist. Pharynx: Oropharynx is clear. Eyes: Extraocular Movements: Extraocular movements intact. Pupils: Pupils are equal, round, and reactive to light. Cardiovascular: Rate and Rhythm: Normal rate and regular rhythm. Pulses: Normal pulses. Heart sounds: Normal heart sounds. Pulmonary: Effort: Pulmonary effort is normal. No respiratory distress. Breath sounds: Normal breath sounds. Abdominal: General: Abdomen is flat. There is no distension. Palpations: Abdomen is soft. Tenderness: There is abdominal tenderness in the left lower quadrant. Musculoskeletal: General: No swelling or deformity. Normal range of motion. Cervical back: Normal range of motion. Skin: General: Skin is warm and dry. Capillary Refill: Capillary refill takes less than 2 seconds. Findings: No rash. Neurological: General: No focal deficit present. Mental Status: She is alert and oriented to person, place, and time. Mental status is at baseline. Psychiatric: Mood and Affect: Mood normal. Behavior: Behavior normal. DIAGNOSTIC RESULTS RADIOLOGY (Per Emergency Physician): Interpretation per the Radiologist below, if available at the time of this note: No orders to display LABS: Labs Reviewed COMPLETE URINALYSIS - Abnormal Result Value Color, Urine Light Yellow Clarity, Urine Turbid (*) pH, Urine 7.0 Leukocytes, Urine 500 (*) Nitrite, Urine Negative Protein, Urine 10 (*) Glucose, Urine Normal Bilirubin, Urine Negative Ketones, Urine Negative Urobilinogen, Urine Normal Blood, Urine 1.0 (*) RBC, Urine 11-25 (*) WBC, Urine >100 (*) Squamous Epithelial, Urine 0-2 Bacteria, Urine Few (*) Hyaline Casts, Urine Negative WBC Clumps, Urine Few (*) SPECIFIC GRAVITY OF URINE (NUMERIC) 1.005 HCG QUALITATIVE URINE HCG,URINE QUAL Negative Narrative: is the most common reason for HCG in urine, although choriocarcinoma, hydatidiform mole, and certain nontrophoblastic malignancies also result in detectable urinary HCG levels. Sensitivity = 20mIU/mL. All other labs were within normal range or not returned as of this dictation. EMERGENCY DEPARTMENT COURSE and DIFFERENTIAL DIAGNOSIS/MDM: Vitals: Vitals: 03/16/24 0459 BP: 123/77 Pulse: 98 Resp: 16 Temp: 37.4 C (99.3 F) TempSrc: Oral SpO2: 94% Weight: 63.5 kg (140 lb) Height: 1.753 m (5' 9 ) The patient presented with a chief complaint of hematuria, left lower quadrant pain. The differential diagnosis associated with this patient's presentation includes UTI, , pyelonephritis, other pelvic problem. Our workup consisted of ordering/reviewing urinalysis and urine . NC negative. Urinalysis shows 500 leukocytes, no signs of contamination, bacteria and white blood cells over 100 present. Given that she has some lower abdominal pain also concerned this may be the start of some pyelonephritis. Gave first dose of Keflex here in the ED and prescribed 10-day course along with some Pyridium for symptom control. Patient understands instructions has been given return precautions. Patient discharged. Diagnoses as of 03/16/24627 Acute cystitis with hematuria Pyelonephritis External records reviewed: none Diagnostics interpreted by me: none Discussions with other clinicians: none Chronic conditions impacting care: none Social determinants of health affecting care: none ED Medications managed: Medications cephalexin (Keflex) capsule 500 mg (has no administration in time range) phenazopyridine (Pyridium) tablet 200 mg (has no administration in time range) Prescription drugs considered: Keflex, Azo PROCEDURES: Unless otherwise noted below, none Procedures FINAL IMPRESSION 1. Acute cystitis with hematuria 2. Pyelonephritis DISPOSITION Discharge 03/16/2024 06:20:48 AM PATIENT REFERRED TO: No follow-up provider specified. DISCHARGE MEDICATIONS: New Prescriptions CEPHALEXIN (KEFLEX) 500 MG CAPSULE Take 1 capsule (500 mg) by mouth 4 times daily for 10 days. PHENAZOPYRIDINE (PYRIDIUM) 200 MG TABLET Take 1 tablet (200 mg) by mouth 3 times daily as needed for bladder spasms for up to 3 days. (Comment: Please note this report has been produced using speech recognition software and may contain errors related to that system including errors in grammar, punctuation, and spelling, as well as words and phrases that may be inappropriate. If there are any questions or concerns please feel free to contact the dictating provider for clarification.) LEEROY BALTAZAR DO (electronically signed) Emergency Medicine Provider Leeroy Baltazar DO Resident 03/16/24627 Cosigned by Roney Issa DO at 03/16/2024 8:30 AM EST [facility] Discharge instructions 12-21-2021 <item><item><item><item><item> Note Date & Type Note Facility 12-21-2021 Hospital Discharg e instructions Activity:activity as tolerated. May shower. May return to school/work Instructions:. May drive.Follow Up Appointment 1:Physician/Dept/Service: Dr. Jorgito Coyle MD/PsychiatrisstScheduled Date/Time: 12-Jan-2022 09:30Location: [facility], [address], [place] [address] Number: [phone]; FAX [phone]: THIS IS A VIRTUAL APPOINTMENTFollow Up Appointment 2:Physician/Dept/Service: [facility] [facility] [address] [facility] [address] [place], [place]: [phone]; FAX [phone]: I HAD TO LEAVE A MESSAGE FOR YOUR COUNSELOR RE; YOUR NEXT VIRTUAL APPOINTMENT; PLEASE CALL SANKET TO CONFIRM YOUR APPOINTMENTFollow Up Appointment 3:Physician/Dept/Service: Michelle De Anda/CounselorReason for Referral: DBT CounselorLocation: [place]Phone Number: [phone]: CALL TO SEE ABOUT AN APPOINTMENTFollow Up Appointment 4:Physician/Dept/Service: [facility] GroupLocation: [place]Phone Number: [phone]: THEY HAVE A GREAT ONLINE DBT IOP GROUP THAT YOU WOULD LOVE; GIVE THEM A CALL FOR MORE INFORMATION [facility] Evaluation note <item> Note Date & Type Note Facility Evaluation note Affect: blunted at t imesJudgment: needs improvementMotor Activity: No agitation or retardation. No EPS/TD. Normal gait.Speech: Regular rate, rhythm, volume and tone, spontaneous, fluent. Mood: depressed, minimizing notedThought Process: Organized, linear, goal directed. Associations are logical.Attitude: Patient appeared in gown, wig, glasses, acneThought Perception: Does not endorse auditory or visual hallucinations, does not appear to be responding to hallucinatory stimuli. Cognition: Alert, oriented x3. No deficits noted. Adequate fund of knowledge. No deficit in recent and remote memory. No deficits in attention, concentration or language.General: Patient is a female with light skin, curled hair, heavy eye makeup, wearing a hospital gown and blanket.Appearance: Patient appeared well kept.Behavior: Appropriate eye contact.Thought Content: Does not endorse suicidal or homicidal ideation, no delusions elicited.Insight: needs improvement [facility] Evaluation note Note Date & Type Note Facility Evaluation note Diagnosis Acute cystitis with hematuria- Primary Pyelonephritis Unspecified pyelonephritis documented in this encounter [facility] Health Summary Purpose Family History No Family History Records FoundNo Family History Records FoundNo Family History Records FoundNo Family History Records FoundNo Family History Records FoundNo Family History Records FoundNo Family History Records FoundNo Family History Records Found Advance Directives No Advanced Directives Records FoundNo Advanced Directives Records FoundNo Advanced Directives Records FoundNo Advanced Directives Records FoundNo Advanced Directives Records FoundNo Advanced Directives Records FoundNo Advanced Directives Records FoundNo Advanced Directives Records Found Additional Source Comments INFORMATION SOURCE (unrecogn ized section and content) DATE CREATED AUTHOR 12/02/2018 [facility] DATE CREATED AUTHOR AUTHOR'S ORGANIZ ATION 12/19/2021 [facility] DATE CREATED AUTHOR AUTHOR'S ORGANIZ ATION 12/23/2021 [facility][1] DATE CREATED AUTHOR AUTHOR'S ORGANIZ ATION 12/03/2023 [facility] DATE CREATED AUTHOR AUTHOR'S ORGANIZ ATION 02/09/2024 [facility] DATE CREATED AUTHOR AUTHOR'S ORGANIZ ATION 02/29/2024 [facility] DATE CREATED AUTHOR AUTHOR'S ORGANIZ ATION 03/19/2024 [facility] DATE CREATED AUTHOR AUTHOR'S ORGANIZ ATION 04/10/2024 [facility] <item> Privacy Markings (unrecogniz ed section and content) Section Author: Trish Thapa PROHIBITION ON REDISCLOSURE OF CONFIDENTIAL INFORMATION This notice accompanies a disclosure of information concerning a client made to you with the consent of such client. Reason for Visit (unrecogniz ed section and content) Reason Comments Female Dysuria Pt presents to the e d w painful, burning and bloody urine x 1 day via squad. Ems reports pt was found at a closed urgent care to be seen for the complaints but once she arrived and seen they were the boyfriend called the squad. Pt answers all questions appropriately but delayed response. EMS reports pt smoked a blunt for the pain but made things worse. Pt is A&O x 3 with a GCS of 15. Pt is without distress and has a steady gait. Reason Onset Date Comments Future Appointment 04/05/2024 Holter Monito r Scheduled Active and Recently Administ ered Medications (unrecognized section and content) Medication Order 03/14/2024 03/15/2024 03/16/2024 cephalexin (Keflex) capsule 500 mg (COMPLETED) 500 mg, Oral, Once, On 03/16/24 at 0620, For 1 dose, Suspected Indication (Select all that apply): Urinary Tract Infection 0629 (Given - Provid er: Siena Blood RN) phenazopyridine (Pyridium) tablet 200 mg (COMPLETED) 200 mg, Oral, Once, On 03/16/24 at 0620, For 1 dose 0629 (Given - Provid er: Siena Blood RN) Source Comments (unrecognize d section and content) In the event this informatio n is protected by the Federal Confidentiality of Alcohol and Drug Abuse Patient Records regulations: The Federal rules restrict any use of the information to criminally investigate or prosecute any alcohol or drug abuse patient.[facility] Care Teams (unrecognized sec tion and content) Tablet Repair Relationship Specialty Start Date End Date Antionette Benitez DO [address] [place] [id number] PCP - General Family Medicine 04/05/24 FOR RECORDS PERTAINING TO PATIENTS WHO ARE OR HAVE BEEN ENROLLED IN A CHEMICAL DEPENDENCY/SUBSTANCEABUSE PROGRAM, SOME INFORMATION MAY BE OMITTED. This clinical summary was aggregated from multiple sources. Caution should be exercised in using it in the provision of clinical care. This summary normalizes information from multiple sources, and as a consequence, information in this document may materially change the coding, format and clinical context of patient data. In addition, data may be omitted in some cases. CLINICAL DECISIONS SHOULD BE BASED ON THE PRIMARY CLINICAL RECORDS. [facility] [employer] [facility]. provides no warranty or guarantee of the accuracy or completeness of information in this document.
[2024-04-11 22:13] VITALS: PULSE 86
--- NOTE | 2024-04-11 22:23 | ECG_ITS ---
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
--- NOTE | 2024-04-11 22:23 | ED.GENADUL1 ---
HPI HPI - General Adult General Chief complaint: Arrhythmia/Palpitations Stated complaint: fast heart rate Time Seen by Provider: 04/11/24 22:03 Source: patient Mode of arrival: walk-in Limitations: no limitations History of Present Illness HPI narrative: 18-year-old female presents to the emergency department for heart racing and elevated blood pressure. This time it began today but she has been having problems similar to this. She is seeing her family doctor about it and she is wearing a Holter monitor. She also has a history of anxiety. Related Data Home Medications ?Medication ?Instructions ?Recorded ?Confirmed fluoxetine 10 mg capsule (Prozac) 10 mg PO DAILY 04/11/24 04/11/24 hydroxyzine BID 04/11/24 Allergies Allergy/AdvReac Type Severity Reaction Status Date / Time ciprofloxacin (From Cipro) Allergy Unknown Anxiety Verified 04/11/24 22:10 Opioid HPI Opioid Management Most Recent Opioid Data: Last Pain Scale 4 03/27/24 21:33 03/27/24 Review of Systems ROS Narrative A ten point review of systems is negative except as noted above. PFSH PFSH Social History Little interest or pleasure in doing things: not at all Feeling down, depressed, or hopeless: not at all Exam Narrative Exam Narrative: Nurses note and vital signs reviewed and patient is not hypoxic. General: The patient appears well and in no apparent distress. Patient is resting comfortably on cart. Skin: Warm, dry, no pallor noted. There is no rash noted. Head: Normocephalic, atraumatic Eye: Normal conjunctiva, no drainage Ears, Nose, Mouth, and Throat: oral mucosa is moist. Nares patent. Cardiovascular: Regular Rate and Rhythm, not tachycardia Respiratory: Patient is in no distress, no accessory muscle use, lungs are clear to auscultation, no wheezing, rales or rhonchi Back: non-tender GI: Soft and nontender Musculoskeletal: The patient has no evidence of calf tenderness, no pitting edema, symmetrical pulses noted bilaterally Neurological: A&O, normal speech Psychiatric: Cooperative Constitutional Vital Signs, click to edit/add: Last Vital Signs Temp 98.1 F 04/11/24 21:58 Pulse 87 04/11/24 21:58 Resp 18 04/11/24 21:58 BP 130/80 04/11/24 22:27 Pulse Ox 98 04/11/24 21:58 O2 Del Method Room Air 04/11/24 21:58 Course Vital Signs Vital signs: Vital Signs Temperature 98.1 F 04/11/24 21:58 Pulse Rate 87 04/11/24 21:58 Respiratory Rate 18 04/11/24 21:58 Blood Pressure 151/92 H 04/11/24 21:58 Pulse Oximetry 98 04/11/24 21:58 Oxygen Delivery Method Room Air 04/11/24 21:58 Temperature 98.1 F 04/11/24 21:58 Pulse Rate 87 04/11/24 21:58 Respiratory Rate 18 04/11/24 21:58 Blood Pressure 130/80 04/11/24 22:27 Pulse Oximetry 98 04/11/24 21:58 Oxygen Delivery Method Room Air 04/11/24 21:58 Medical Decision Making MDM Narrative Medical decision making narrative: Blood pressure and heart rate normalized here without intervention. I suspect that her symptoms may be due to anxiety. Treatment diagnosis and follow-up were discussed with the patient. Differential Diagnosis Differential Diagnosis: Palpitations, hypertension, anxiety ECG Data Attestation: I personally reviewed and interpreted this ECG as follows: (EKG on my interpretation shows normal sinus rhythm with rate of 82 and no acute change) Discharge Plan Discharge Chief Complaint: Arrhythmia/Palpitations Clinical Impression: Palpitations Patient Disposition: Home, Self-Care Time of Disposition Decision: 22:52 Condition: Good Mode of Transportation: Private Vehicle Prescriptions / Home Meds: No Action hydroxyzine 25 mg BID fluoxetine [Prozac] 10 mg capsule 10 mg PO DAILY Print Language: Monegasque Instructions: Heart Palpitations (ED) Referrals: Physician,Non-Staff, MD [Primary Care Provider] - 1 week
[2024-04-11 22:27] VITALS: BP 130/80
[2024-04-11 22:56] VITALS: BP 124/74; PULSE 82; O2SAT 99
== END 2024-04-11 22:56 | disposition home or self-care (01) ==
PROVIDERS: Emergency Provider Emergency Medicine
DX: R00.2 Palpitations (principal); F41.9 Anxiety disorder, unspecified
CPT/HCPCS: 93005; 99283

== ENCOUNTER 2024-11-09 21:48 | Emergency (ER) | payer OTHER, SELFPAY ==
[2024-11-09] VITALS (15 sets, daily range): BP systolic 122–150; BP diastolic 85–100; PULSE 68–82; TEMP 37.1; O2SAT 97–100; BMI 24.4
--- OUTSIDE RECORDS SUMMARY | 2024-11-09 21:56 | XMS_ITS | CCD ---
Author Organization [facility] Care Team Providers Care Service Advocate Contact Name Role Phone AYAAN CASTRO Consulting Unavailable AYAAN CASTRO Admitting Unavailable AYAAN CASTRO Attending Unavailable MISC, DOCTOR Primary Care Unavailable MISC, DOCTOR Admitting Unavailable MISC, DOCTOR Attending Unavailable MISC, DOCTOR Primary Care Unavailable MISC, DOCTOR Consulting Unavailable Required, No Pcp Unavailable Unavailable Edna Worley Unavailable Fred Claire Unavailable Unavailable KALYN GILMAN Attending Unavailable KALYN GILMAN Referring Unavailable KALYN GILMAN Primary Care Unavailable Unavailable Primary Care Provider UnavailRONEY Randall Attending Unavailable Antionette Benitez DO Primary Care Provider [phone] DO Hermelindo Howard Attending Unavailable DR. ANTIONETTE BENITEZ Primary Care Physic cass ANTIONETTE BENITEZ Primary Care Unavailable Hermelindo Howard Attending Unavailable Antionette Benitez MD Primary Care Provider Unavailable Primary Care Provider UnavailKalyn Pollock DO Primary Care Provider IAN VASQUEZ Attending Unavailable IAN VASQUEZ Referring Unavailable IAN VASQUEZ Attending Unavailable IAN VASQUEZ Referring Unavailable REF PROV, NOT IN SYSTEM Primary Care Unavaila Myesha Canales DO Attending Provider [phone] NON STAFF Primary Care Provider UnavailTania Ramirez Unavailable MYESHA CACERES Attending Unavailable MYESHA CACERES Referring Unavailable TANIA YOUNGBLOOD Attending Unavailable TANIA YOUNGBLOOD Referring Unavailable Merry Alvarez APRN Attending Provider [phone] Myesha Caceres Admitting Unavailab Myesha Brito Attending Unavailab le NON STAFF Primary Care Unavailable Merry Alvarez Admitting Unavailable Merry Alvarez Attending Unavailable NO FAMILY, PHYSICIAN Primary Care Unavailable Unavailable Primary Care Provider Unavailabl e Ref Prov, Not In System Primary Care Provider Un available BENITEZ, ANTIONETTE N Primary Care Unavailable BENITEZ, ANTIONETTE N Primary Care Unavailable SELF Referring Unavailable BENITEZ, ANTIONETTE N Attending Unavailable BENITEZ, ANTIONETTE N Primary Care Unavailable BENITEZ, ANTIONETTE N Attending Unavailable BENITEZ, ANTIONETTE N Primary Care Unavailable BENITEZ, ANTIONETTE N Referring Unavailable BENITEZ, ANTIONETTE N Primary Care Unavailable BENITEZ, ANTIONETTE N Attending Unavailable BENITEZ, ANTIONETTE N Primary Care Unavailable BENITEZ, ANTIONETTE N Attending Unavailable BENITEZ, ANTIONETTE N Attending Unavailable BENITEZ, ANTIONETTE N Referring Unavailable BENITEZ, NATIONETTE N Primary Care Unavailable BENITEZ, ANTIONETTE N Primary Care Unavailable FABBY BO Attending Unavailable FABBY BO Attending Unavailable SADIE LOMBARDO Attending Unavailable NON STAFF Primary Care Provider Unavailabl e Antonio Merry MCCALL Attending Provider [phone] NO FAMILY, PHYSICIAN Primary Care Provider Unava ilable Sarah Puri APRN Attending Provider [phone] KALYN GILMAN Referring Unavailable KALYN GILMAN Primary Care Unavailable JULIUS CASTRO Referring Unavailable TANVI SOMMER Attending Unavailable REF PROV, NOT IN SYSTEM Referring Unavaila ble REF PROV, NOT IN SYSTEM Primary Care Unavaila ble Allergies Allergy Classification Reported Allergen(s) Allergy Type Date of Onset Reaction(s) Facility (20 sources) Ciprofloxacin; Translations: [ciprofloxacin] Drug Allergy 4 Other: See Comments, Palpitations, Other [facility] (2 sources) Ciprofloxacin; Translations: [Cipro] Drug Allergy [facility] Repository (1 source) Ciprofloxacin Drug Allergy 5 [facility] Repository Medications Current Medications Medication Drug Class(es) Dates Sig (Normalized) Sig (Original) [id number] 200 actuat albuterol 0.09 mg/actuat metered dose inhaler (1 source) beta2-Adrenergic Agonist Start: 10-28-2024 take 1 puff(s) by inhalation every four to six hours as needed for wheezing Albuterol Sulfate 90 mcg/actuation HFA aerosol inhaler Active 2 PUFF INHALATION EVERY 4-6 HOURS as needed for shortness of breath or wheezing 6.7 October 28, 2024 12:00am Complies with drug therapy ARIPiprazole 2 mg oral tablet (20 sources) Atypical Antipsychotic Start: 08-22-2024 Aripiprazole 2 mg tablet Active 2 MG PO August 22, 2024 12:00am Complies with drug therapy Start: 04-02-2024 End: 05-07-2024 take 1 tablet by mouth once daily at bedtime ARIPiprazole (ABILIFY) 5 mg tablet Take 5 mg by mouth daily at bedtime. 04/02/2024 05/07/2024 Discontinued Start: 11-20-2023 End: 06-19-2024 ARIPiprazole (ABILIFY) 2 mg tablet Take 2 tablets (4 mg total) by mouth. 11/20/2023 06/19/2024 Discontinued bacitracin 0.5 unt/mg topical ointment (1 source) [...] mouth once 500 mg, Oral, Once, On 05/16/23 at 0620, For 1 dose, Suspected Indication (Select all that apply): Urinary Tract Infection dextromethorphan hydrobromide 15 mg / guaiFENesin 400 mg / pseudoephedrine hydrochloride 60 mg oral tablet (1 source) alpha-Adrenergic Agonist, Uncompetitive A-avejhy-B-aspartate Receptor Antagonist, Sigma-1 Agonist Start: 10-28-2024 take 4 tablets by mouth every twenty-four hours as needed Nkdntetqjwdaeje-Mf-Xpuwmbvjblj (Capmist Dm) 60-15-400 mg tablet Active 1 TAB PO EVERY 4-6 HOURS as needed for cold symptoms October 28, 2024 12:00am do not exceed 4 doses per 24 hrs Complies with drug therapy Ethinyl Estradiol / Norethindrone (3 sources) Estrogen Start: 10-24-2024 take 1 tablet by mouth in the morning, then take 0.05 tablet by mouth once norethindrone ac-eth estradioL (,) 1-20 mg-mcg per tablet Take 1 tablet by mouth in the morning. 21 tablet 12 10/24/2024 Active FLUoxetine 10 mg oral capsule (20 sources) Serotonin Reuptake Inhibitor Start: 04-21-2024 Prozac Oral, Daily, Refills( s) 0 Start Date: 04/21/24 Status: Ordered Start: 03-27-2024 take 1 capsule by mo uth in the morning FLUoxetine (PROzac) 10 mg capsule Take 1 capsule (10 mg total) by mouth in the morning. 03/27/2024 Active End: 11-30-2023 FLUoxetine (PROzac) 40 mg ca psule Take 60 mg by mouth daily. 11/30/2023 Discontinued take 3 capsules by m outh once daily PROzac 20 mg oral capsule ; 60 milligram(s) orally once a day Quantity: 0 Refills: 0 Ordered: 17-Dec-2021 John Garcia Generic Substitution Allowed fluticasone propionate 0.05 mg/actuat metered dose nasal spray (1 source) Corticosteroid Start: 10-28-2024 take 1 spray(s) nasal route once daily Fluticasone Propionate (Flonase Allergy Relief) 50 mcg/actuation spray,suspension Active 1 SPRAY INTRANASAL Daily 16 October 28, 2024 12:00am administer into each nostril Complies with drug therapy hydrOXYzine hydrochloride 25 mg oral tablet (20 sources) Antihistamine Start: 08-22-2024 Hydroxyzine Hcl 25 mg tablet Active 25 MG PO as needed August 22, 2024 12:00am Start: 04-21-2024 hydrOXYzine Re fills(s) 0 Start Date: 04/21/24 Status: Ordered Start: 02-07-2020 hydrOXYzine (A TARAX) 25 mg tablet Take 1 tablet (25 mg total) by mouth as needed in the morning and 1 tablet (25 mg total) as needed in the evening. 02/07/2020 Active hydrOXYzine HCl (Atarax) 25 MG tablet Take 25 mg by mouth every 12 (twelve) hours if needed for itching Active take 1 tablet by maico th twice daily as needed Atarax 50 mg oral tablet ; 50 milligram(s) orally 2 times a day, As Needed Quantity: 0 Refills: 0 Ordered: 17-Dec-2021 John Garcia Status: Discontinued Generic Substitution Allowed Inhalational Spacing Device (Aerochamber Mv) spacer (1 source) Start: 10-28-2024 Inhalational Spacing Device (Aerochamber Mv) spacer Active 0 .ROUTE .MEDSUPPLY October 28, 2024 12:00am As directed levothyroxine sodium 0.025 mg oral tablet (20 sources) l-Thyroxine Start: 05-07-2024 End: 07-02-2025 take 1 tablet by mouth in the morning levothyroxine (SYNTHROID, LEVOTHROID) 25 MCG tablet Take 1 tablet (25 mcg total) by mouth in the morning. 05/07/2024 Active midodrine hydrochloride 5 mg oral tablet (10 sources) alpha-Adrenergic Agonist Start: 06-19-2024 End: 10-24-2024 take 1 tablet by mouth three times daily Midodrine 5 mg tablet Active 5 MG PO Three times daily August 22, 2024 12:00am Complies with drug therapy mometasone furoate 1 mg/ml topical cream (10 sources) Corticosteroid Start: 11-30-2023 End: 06-19-2024 mometasone (ELOCON) 0.1 % cream Indications: Atopic neurodermatitis Apply 1 Application topically in the morning. 45 g 11/30/2023 06/19/2024 Discontinued Multiple Vitamins with Minerals oral tablet (1 source) Start: 12-21-2021 take 1 tablet by mouth once daily Multiple Vitamins with Minerals oral tablet ; 1 tab(s) orally once a day Quantity: 30 Refills: 0 Ordered: 21-Dec-2021 Edna Worley Start: 21-Dec-2021 Generic Substitution Allowed naproxen 500 mg oral tablet (10 sources) Nonsteroidal Anti-inflammatory Drug Start: 06-13-2024 End: 12-10-2024 take 1 tablet by mouth once daily as needed for headache naproxen (NAPROSYN) 500 mg tablet Indications: Cervicogenic headache Take 1 tablet by mouth once daily as needed (Headache). 30 tablet 5 06/13/2024 12/10/2024 Active Start: 05-07-2024 End: 06-06-2024 take 1 tablet by mouth once daily as needed for headache naproxen (NAPROSYN) 500 mg tablet Indications: Cervicogenic headache Take 1 tablet by mouth once daily as needed (Headache). 30 tablet 05/07/2024 06/06/2024 Active phenazopyridine hydrochloride 200 mg delayed release oral [...] 1 05/16/23 at 0620, For 1 dose Completed/Discontinued Medications Medication Drug Class(es) Dates Sig (Normalized) Sig (Original) amoxicillin 500 mg oral tablet (3 sources) Penicillin-class Antibacterial Start: 08-22-2024 End: 10-28-2024 take 1 tablet by mouth twice daily Amoxicillin 500 mg tablet Discontinued 500 MG PO Twice daily 20 August 22, 2024 12:00am October 28, 2024 9:14am cyclobenzaprine hydrochloride 10 mg oral tablet (2 sources) Muscle Relaxant Start: 07-08-2024 End: 07-22-2024 take 1 tablet by mouth once daily at bedtime cyclobenzaprine (FLEXERIL) 10 mg tablet Indications: Right flank pain Take 1 tablet by mouth daily at bedtime for 14 days. 14 tablet 07/08/2024 07/22/2024 metroNIDAZOLE 500 mg oral tablet (2 sources) Nitroimidazole Antimicrobial Start: 07-09-2024 End: 07-16-2024 take 1 tablet by mouth twice daily metroNIDAZOLE (FLAGYL) 500 mg tablet Indications: Bacterial vaginosis Take 1 tablet by mouth two times a day for 7 days. 14 tablet 07/09/2024 07/09/2024 Discontinued Problems Active Problems Problem Classification Problem Date Documented Da te Episodic/Chronic Allergic reactions (3 sources) Atopic neurodermatitis; Translations: [Atopic neurodermatitis] Onset: 11-30-2023 11-30-2023 Chronic Anxiety disorders (20 sources) Anxiety disorder, unspecified; Translations: [Anxiety] Onset: 02-26-2016 04-05-2024 Chronic Cardiac dysrhythmias (3 sources) Postural orthostatic tachycardia syndrome ; Translations: [Postural orthostatic tachycardia syndrome] 08-22-2024 Chronic Epilepsy; convulsions (10 sources) Seizure; Translations: [Unspecified convulsions] Onset: 07-23-2024 06-04-2024 Episodic Genitourinary symptoms and ill-defined conditions (6 sources) Bacteriuria; Translations: [Other nonspecific findings on examination of urine] Onset: 09-21-2024 12-17-2021 Episodic Impulse control disorders, NEC (8 sources) Trichotillomania; 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 02-13-2017 Chronic Inflammatory diseases of female pelvic organs (1 source) Bacterial vaginosis; Translations: [Acute vaginitis] 07-09-2024 Episodic Menstrual disorders (1 source) Missed period; Translations: [Irregular menstruation, unspecified] 10-23-2024 Chronic Miscellaneous mental health disorders (6 sources) Eating disorder, unspecified; Translations: [Eating disorder] Onset: 08-20-2018 12-18-2021 Chronic Mood disorders (8 sources) Depressive disorder; Translations: [Depressive disorder, not elsewhere classified] 12-17-2021 Chronic Nonspecific chest pain (1 source) Chest pain; Translations: [Chest pain, unspecified] Onset: 04-21-2024 Episodic Open wounds of extremities (1 source) Laceration of thigh; Translations: [Open wound of hip and thigh, without mention of complication] 12-17-2021 Episodic Other circulatory disease (2 sources) Elevated blood-pressure reading without diagnosis of hypertension; Translations: [Elevated blood-pressure reading, without diagnosis of hypertension] 04-10-2024 Episodic Other female genital disorders (2 sources) Vaginal discharge; Translations: [Other specified noninflammatory disorders of vagina] 07-08-2024 Episodic Other female genital disorders (2 sources) Other specified noninflammatory disorders of vagina; Translations: [Vaginal discharge] Onset: 07-08-2024 Episodic Other gastrointestinal disorders (1 source) Acute diarrhea 12-17-2021 Episodic Other screening for suspected conditions (not mental disorders or infectious disease) (2 sources) Patient encounter status; Translations: [Encounter for test, result unknown] Onset: 10-24-2024 10-24-2024 Episodic Other upper respiratory infections (12 sources) Acute bacterial pharyngitis; Translations: [Acute pharyngitis due to other specified organisms] Onset: 10-24-2024 08-22-2024 Episodic Personality disorders (15 sources) Borderline personality disorder; Translations: [Borderline personality disorder] Onset: 04-05-2024 04-05-2024 Chronic Poisoning by other medications and drugs (1 source) Poisoning by unspecified drug or medicinal substance 12-17-2021 Episodic Residual codes; unclassified (2 sources) High risk heterosexual behavior; Translations: [High risk heterosexual behavior] Onset: 08-22-2024 Episodic Residual codes; unclassified (1 source) Unprotected sexual intercourse; Translations: [High risk heterosexual behavior] 10-24-2024 Episodic Suicide and intentional self-inflicted injury (4 sources) Poisoning by other drugs, medicaments and biological substances, intentional self-harm, initial encounter; Translations: [PSN OTH RX MED BIO SUBS SF-HRM INIT] Onset: 08-15-2018 Thyroid disorders (17 sources) Hypothyroidism; Translations: [Subclinical hypothyroidism] Onset: 05-07-2024 04-21-2024 Chronic Unclassified (2 sources) SA T14.91XA. 12-18-2021 Comment on above: SA T14.91XA. Unclassified (1 source) Laceration of right thigh 12-17-2021 Unclassified (1 source) Eating disorder, unspecified type 12-18-2021 Unclassified (1 source) Rash Onset: 11-30-2023 Unclassified (2 sources) New Patient Onset: 06-19-2024 Unclassified (1 source) Blood Pressure Onset: 08-29-2024 Unclassified (1 source) Contact with and (suspected) exposure to covid-19; Translations: [Contact with and (suspected) exposure to covid-19] Onset: 10-25-2024 Urinary tract infections (8 sources) Acute cystitis; Translations: [Acute cystitis with hematuria] Onset: 03-16-2024 03-16-2024 Episodic Past or Other Problems Problem Classification Problem Date Documented Da te Episodic/Chronic Abdominal pain (2 sources) Right flank pain; Translations: [Unspecified abdominal pain] Onset: 07-08-2024 07-08-2024 Episodic Cardiac dysrhythmias (20 sources) Palpitations; Translations: [Palpitations] Onset: 04-05-2024 04-10-2024 Episodic Headache; including migraine (12 sources) Cervicogenic headache; Translations: [Cervicogenic headache] Onset: 05-07-2024 05-07-2024 Episodic Immunizations and screening for infectious disease (11 sources) Encounter for immunization; Translations: [Vaccination needed] Onset: 11-30-2023 11-30-2023 Episodic Mood disorders (9 sources) Mood disorders Onset: 02-13-2018 12-18-2021 Other circulatory disease (1 source) Elevated blood-pressure reading, without diagnosis of hypertension; Translations: [Elevated blood pressure reading without diagnosis of hypertension] Onset: 04-05-2024 Episodic Suicide and intentional self-inflicted injury (1 source) Personal history of self-harm; Translations: [PERSONAL HISTORY OF SELF-HARM] Onset: 08-20-2018 Episodic Syncope (20 sources) Syncope and collapse; Translations: [Syncope and collapse] Onset: 04-21-2024 Episodic Unclassified (1 source) SA T14.91XA 12-18-2021 Comment on above: SA T14.91XA Results Test Name Value Interpretation Reference Range Facility POCT Covid-19 Rapid Antigeno n 10-25-2024 SARS-CoV-2 (COVID-19) Ag IA.rapid Ql (Resp) Presumptive negative test for SARS-CoV-2 (no antigen detected) Presumptive negative test for SARS-CoV-2 (no antigen detected) [facility] Work Phone: SARS-CoV-2 (COVID-19) Ag IA. rapid Ql (Resp)on 10-25-2024 [facility] Work Phone: CHLAMYDIA/GC BY PCR CANDE SW ABon 10-24-2024 CHLAMYDIA/GC BY PCR CANDE SWAB CHLAMYDIA DNA(PCR) Negative Chlamydia trachomatis not detected by nucleic acid amplification. This does not exclude the possibility of infection because results are dependent on adequate specimen collection. GONORRHOEAE DNA(PCR) Negative Neisseria gonorrhoeae not detected by nucleic acid amplification. This does not exclude the possibility of infection because results are dependent on adequate specimen collection. Normal [facility] Comment on above: Performed By: #### C GS #### [facility] ([facility]) [address] [place] [address] VIR POCT SPOTFIRE R/ST Panel Min i w/Strep A ([facility]) manually resultedon 10-24-2024 Interpretation and review of laboratory results Normal [facility] Work Phone: POC Human Rhinovirus PCR Negative Negative [facility] Work Phone: POC Influenza A Virus PCR Negative Negative [facility] Work Phone: POC Influenza B Virus PCR Negative Negative [facility] Work Phone: POC Respiratory Syncytial Virus PCR Negative Negative [facility] Work Phone: S. pyogenes DNA FERMÍN+probe Ql (Throat) Negative Negative [facility] Work Phone: [facility] Work Phone: VAGINITIS PANEL PCRon 2024 VAGINITIS PANEL PCR BACT. VAGINOSIS DNA Indeterminate - suggest repeat testing Qualitative results are reported based on detection and quantitation of targeted organism markers which include: Lactobacillus spp. (L. crispatus and L. jensenii), Gardnerella vaginalis, Atopobium vaginae, Bacterial Vaginosis Associated Bacteria-2 (BVAB-2) and Megasphaera-1. RENE SPECIES DNA Indeterminate - suggest repeat testing RENE KRUSEI DNA Indeterminate - suggest repeat testing RENE GLABRATA DNA Indeterminate - suggest repeat testing TRICHOMONAS VAG DNA Indeterminate - suggest repeat testing Abnormal Not Detected [facility] Comment on above: Performed By: #### V PPCR #### [facility] ([facility]) [address] [place] [address] VIR BV SMEAR ROXANNA SCOREon 06-0 BV SMEAR ROXANNA SCORE SEE NOTE [facility] Comment on above: Result Comment: BV SMEAR ROXANNA SCORE Micro Number: [id number] Test Status: Final Specimen Source: Not given Specimen Quality: Adequate Gram Stain: Normal vaginal eric observed Comment: No yeast seen Performed By: #### 3 95, [id number] #### [facility] [address], [address] [place], [place] [id number] Soda Tester: Bo Chand MD CULTURE, URINE, ROUTINEon Bacteria identified Cx Nom (U) SEE NOTE Normal [facility] Comment on above: Result Comment: CULTURE, URINE, ROUTINE Micro Number: [id number] Test Status: Final Specimen Source: Not given Specimen Quality: Adequate Result: Mixed genital eric isolated. These superficial bacteria are not indicative of a urinary tract infection. No further organism identification is warranted on this specimen. If clinically indicated, recollect clean-catch, mid-stream urine and transfer immediately to Urine Culture Transport Tube. Performed By: #### 3 95, [id number] #### [facility] [address], [address] [place], [place] [id number] Soda Tester: Bo Chand MD HCG ( test) Ql (U)o n 09-21-2024 Preg Test, Ur Negative Negative [facility] Work Phone: No Panel Informationon 09-21 Interpretation and review of laboratory results Normal [facility] Work Phone: [facility] Work Phone: POCT BV Blue Rapid - Bacteri al Vaginitis manually resultedon 09-21-2024 Interpretation and review of laboratory results Normal [facility] Work Phone: POC Bacterial Vaginitis (Rapid) Negative Negative [facility] Work Phone: [facility] Work Phone: POCT UA Automated manually r esultedon 09-21-2024 Appearance (U) Clear Clear [facility] Work Phone: Glucose Test strip (U) [Mass/Vol] Negative NEGATIVE mg/dl [facility] Work Phone: Hemoglobin Ql (U) Negative NEGATIVE [facility] Work Phone: Leukocyte esterase Test strip Ql (U) Negative NEGATIVE [facility] Work Phone: Nitrite Ql (U) Negative NEGATIVE [facility] Work Phone: pH (U) 6.0 [pH] No Reference Range Established [facility] Work Phone: POC Bilirubin, Urine Negative NEGATIVE [facility]: POC Color, Urine Straw Straw, Yellow, Light-Yellow [facility] Work Phone: POC Ketones, Urine Negative NEGATIVE mg/dl [facility] Work Phone: POC Protein, Urine Negative NEGATIVE mg/dl [facility] Work Phone: POC Specific Sunshine, Urine 1.020 1.005 - 1.035 [facility] Work Phone: POC Urobilinogen, Urine 0.2 0.2, 1.0 EU/DL [facility] Work Phone: CNOVon 08-29-2024 CNOV Office Visit (FMIUNI ) -------- TRAVON STALLWORTH ([id number]) 1 F Date Time Provider Department 08/29/24 11:40 AM ANTIONETTE BENITEZ FMIUNI During your visit today, we recorded the following information about you: Temperature Pulse Blood pressure Weight 99.1 degrees 88/minute 120/70 70.3 kg Height Last Period 1.753 m 07/30/24 Antionette Benitez DO 10/23/2024 6:49 PM Signed Subjective Travon is a 18-year-old female, otherwise healthy, presenting with concerns about elevated blood pressure readings and potential . Travon reports an elevated blood pressure reading of 160/110 at work, which decreased to 140/xx after a few minutes of rest. She notes that her blood pressure readings are consistently lower when taken at the clinic, with a recent reading of 125/80. She does not have a home blood pressure monitor but mentions that her father's girlfriend, who has hypertension and is on injectable treatment, has one. She denies experiencing cephalalgia, chest pain, or pressure. Additionally, Travon is concerned about a potential following unprotected intercourse 2 weeks ago. She took Plan B immediately after the incident and has not yet had a menstrual period, which is due soon. She denies experiencing any bleeding since taking Plan B. She also mentions a recent visit to urgent care for streptococcal pharyngitis, for which she received treatment and is now asymptomatic. During that visit, she was tested for sexually transmitted infections, including HIV, gonorrhea, and chlamydia, all of which were negative. (No ROS findings explicitly reported in the transcript.) Objective Blood pressure 120/70, pulse 88, temperature 37.3 ?C (99.1 ?F), height 175.3 cm (5' 9.02 ), weight 70.3 kg (154 lb 15.7 oz), last menstrual period 07/30/2024, SpO2 100%. GENERAL: NAD, alert and oriented SKIN: unremarkable, no rash or skin lesions. HEAD: normocephalic EYES: PERRLA, EOMI, conjunctiva clear EARS: external ears normal, canals clear, TM's normal. NOSE/SINUSES: Nares normal. Septum midline. OROPHARYNX: lips, mucosa, and tongue normal, good dentition. No oral lesions noted. NECK: Supple, no lymphadenopathy, normal thyroid, no carotid bruits. LUNGS: Clear to auscultation bilaterally, no wheezes/rhonchi/rales. HEART: Regular rate and rhythm, no murmurs. No ectopy. EXTREMITIES: Normal, No deformities, No skin discoloration, No edema. NEURO: Awake, alert and oriented x3, cranial nerves II-XII grossly intact, normal gait, no involuntary motions Labs: - Streptococcal test: Positive - Gonorrhea and chlamydia test: Negative - test: Negative Assessment AND Plan 1. Elevated blood pressure reading without diagnosis of hypertension (R03.0) Recent BP readings at work were 160/110 mmHg and 140/xx mmHg. Current BP reading in the office is 120/79 mmHg. - BP normal in office today so no concern for HTN. - Educated on normal BP fluctuations and advised monitoring BP at home using a cuff if available. 2. Missed period (N92.6) Unprotected intercourse occurred approximately two weeks ago, followed by administration of Plan B within 24 hours. No subsequent menstrual period reported. - Advised to wait until the expected date of the menstrual period. - Recommended performing an wxig-xbv-lagyttd test if the period is delayed. - Discussed the possibility of false-negative results if testing is done too early. - Informed about legality and presence of reproductive services in [place] if needed. Dr. Antionette Benitez, DO Recording using [employer] software for draft documentation of the visit was discussed with the patient/authorized statement services representative; all questions welcomed and answered. Patient/authorized statement services representative agreed to proceed Allergies As of Date: 08/29/2024 Noted Allergy Reaction CIPROFLOXACIN 04/05/2024 14 - Other: See Comments Comments: Heart palp, hard time breathing, shaking Date Reviewed: 08/29/2024 Reviewed by: María Wayne MA - Fully Assessed Reason for Visit: Blood Pressure [15] Cmt: Patient is here for follow up with high blood pressure. Seen at medical center at work x 3-4 days ago, bp was 160/110, rechecked 140/110. Had blood pulling in hands, vertigo. Still consistently with 99.0 temp at night- concerned Planned B taken 2 days ago. Asking to have blood draw . test Primary Visit Diagnosis:Elevated blood pressure reading without diagnosis of hypertension [R03.0] Other Visit Diagnosis:Missed period [N92.6] Prescriptions as of 10/23/2024 - ARIPiprazole (ABILIFY) 2 mg tablet Take 2 mg by mouth daily at bedtime. - levothyroxine (SYNTHROID) 25 mcg tablet Take 1 tablet by mouth once daily. - naproxen (NAPROSYN) 500 mg tablet Take 1 tablet by mouth once daily as needed (Headache). - hydrOXYzine HCl (ATARAX) 25 mg tablet Take 25 mg b (more content not included)... Normal [facility] Laboratory - Microbiology an d Antimicrobial susceptibilityOrdered By: Merry Alvarez on 08-22-2024 N. gonorrhoeae DNA FERMÍN+probe Ql (Unsp spec) Negative Negative [facility] Comment on above: Performed at: [address] [id number] Director: Solange Dalal MD, Phone: [phone] No Panel InformationOrdered By: Merry Alvarez on 08-22-2024 Rene albicans (FERMÍN) Negative Negative [facility] Comment on above: This test was develo ped and its performance characteristicsdetermined by [employer]. It has not been cleared orapproved by the Food and Drug Administration. Rene glabrata (FERMÍN) Negative Negative [facility] Comment on above: This test was develo ped and its performance characteristicsdetermined by [employer]. It has not been cleared orapproved by the Food and Drug Administration. Chlamydia trachomatis (FERMÍN) (LAB) Negative Negative [facility] Trichomonas vaginalis (FERMÍN) Negative Negative [facility] Quick Strep (POC) [facility] Vaginal fluid Atopobium vagi mitzi DNA detection by probe and target amplification methoOrdered By: Merry Alvarez on 08-22-2024 A. vaginae DNA FERMÍN+probe Ql (Vag fld) Low - 0 Score . [facility] Comment on above: This test was develo ped and its performance characteristicsdetermined by [employer]. It has not been cleared orapproved by the Food and Drug Administration. Vaginal fluid Megasphaera sp ecies type 1 DNA detection by probe and target amplificatOrdered By: Merry Alvarez on 08-22-2024 Megasphaera sp type 1 DNA FERMÍN+probe Ql (Vag fld) Low - 0 Score . [facility] Comment on above: This test was develo ped and its performance characteristicsdetermined by [employer]. It has not been cleared orapproved by the Food and Drug Administration.Calculate total score by adding the 3 individual bacterialvaginosis (BV) marker scores together. Total score isinterpreted as follows:Total score 0-1: Indicates the absence of BV.Total score 2: Indeterminate for BV. Additional clinical data should be evaluated to establish a diagnosis.Total score 3-6: Indicates the presence of BV. Vaginal fluid bacterial vagi nosis associated bacterium 2 DNA detection by probe and tOrdered By: Merry Alvarez on 08-22-2024 Bacterial vaginosis associated bacterium 2 DNA FERMÍN+probe Ql (Vag fld) Low - 0 Score . [facility] Comment on above: This test was develo ped and its performance characteristicsdetermined by [facility]. It has not been cleared orapproved by the Food and Drug Administration. Vaginitis Plus (VG+)on 08-22 Atopobium Vaginae Low - 0 Normal . [facility] Comment on above: Result Comment: This test was developed and its performance characteristics determined by [facility]. It has not been cleared or approved by the Food and Drug Administration. Performed By: #### V AGINITIS+ #### [facility] , BVAB2 Low - 0 Normal . [facility] Comment on above: Result Comment: This test was developed and its performance characteristics determined by [facility]. It has not been cleared or approved by the Food and Drug Administration. Performed By: #### V AGINITIS+ #### [facility] , Rene Albicans, FERMÍN Negative Normal Negative [facility] Comment on above: Result Comment: This test was developed and its performance characteristics determined by [facility]. It has not been cleared or approved by the Food and Drug Administration. Performed By: #### V AGINITIS+ #### [facility] , Rene Glabrata, FERMÍN Negative Normal Negative [facility] Comment on above: Result Comment: This test was developed and its performance characteristics determined by [facility]. It has not been cleared or approved by the Food and Drug Administration. PERFORMED BY: [place] [address] [place] [address] PATHOLOGIST LOCKMAKER MASSIEL MCKEON M.D. Performed By: #### V AGINITIS+ #### [facility] , Chlamydia Trachomotis, FERMÍN Negative Normal Negative [facility] Comment on above: Performed By: #### V AGINITIS+ #### [facility] , Megasphaera Low - 0 Normal . [facility] Comment on above: Result Comment: This test was developed and its performance characteristics determined by [facility]. It has not been cleared or approved by the Food and Drug Administration. Calculate total score by adding the 3 individual bacterial vaginosis (BV) marker scores together. Total score is interpreted as follows: Total score 0-1: Indicates the absence of BV. Total score 2: Indeterminate for BV. Additional clinical data should be evaluated to establish a diagnosis. Total score 3-6: Indicates the presence of BV. Performed By: #### V AGINITIS+ #### [facility] , Neisseria Gonorrhoeae, FERMÍN Negative Normal Negative [facility] Comment on above: Result Comment: Perf ormed at: =G - [facility] [address] [id number] Bearing Ring Assembler: Solange Dalal MD, Phone: [phone] Performed By: #### V AGINITIS+ #### [facility] , Tric Vag FERMÍN Negative Normal Negative [facility] Comment on above: Performed By: #### V AGINITIS+ #### [facility] , MR head/brain wo/w conon MR head/brain wo/w con [facility] [place] [address] MRI Report Signed Patient: Travon Stallworth MR#: [id number] : 2005 Acct:[id number] Age/Sex: 18 / F ADM Date: 07/23/24 Loc: MR Room: Type: [facility] Attending Dr: Myesha Caceres DO Copies to: Myesha Caceres DO Ordering Provider: Myesha Caceres DO Date of Service: 07/23/24 MR/MR head/brain wo/w con: R56.9 MRI the Brain with and without contrast TECHNIQUE: Multiplanar T1 and T2-weighted imaging of the brain. 13 cc of ProHance HISTORY: Seizure new onset. COMPARISON: none VENTRICLES: Unremarkable BRAIN VOLUME: Adequate volume of brain parenchyma identified. BRAIN PARENCHYMAL SIGNAL INTENSITY: Normal signal intensity of the brain parenchyma identified. Unremarkable temporal lobes. No mesial temporal sclerosis. BLEED: None MASS EFFECT: No mass effect DIFFUSION RESTRICTION: None GRADIENT ECHO PARENCHYMAL SIGNAL LOSS: None MIDBRAIN: The midbrain structures are unremarkable. PETTY: Unremarkable MEDULLA: Unremarkable INTERNAL AUDITORY CANALS: Unremarkable SINUSES: Unremarkable ORBITS: Grossly unremarkable MASTOIDS: Unremarkable ENHANCEMENT: No pathologic enhancement incidental bony prominence posterior right portion of the C1 arch. MR/MR head/brain wo/w con IMPRESSION: Normal MRI the brain with and without contrast Impression dictated by: Maximino Garner M.D.07/23/2024 10:42 PM Dictation Location: [place] [address] Transcribed By: [facility] 07/23/242241 Dictated By: Maximino Garner DO 07/23/242233 Signed By: 07/23/242241 Normal [facility] Magnetic resonance imaging r eportOrdered By: Maximino Garner on 07-23-2024 Study report [facility] [place] [address] [place] [address] MRI Report Signed Patient: Travon Stallworth MR#: [id number] : 2005 Acct:[id number] Age/Sex: 18 / F ADM Date: 5 Loc: MR Room: Type: [facility] Attending Dr: Myesha Caceres DO Copies to: Myesha Caceres DO~ Ordering Provider: Myesha Caceres DO Date of Service: 07/23/24 MR/MR head/brain wo/w con: R56.9 MRI the Brain with and without contrast TECHNIQUE: Multiplanar T1 and T2-weighted imaging of the brain. 13 cc of ProHance HISTORY: Seizure new onset. COMPARISON: none VENTRICLES: Unremarkable BRAIN VOLUME: Adequate volume of brain parenchyma identified. BRAIN PARENCHYMAL SIGNAL INTENSITY: Normal signal intensity of the brain parenchyma identified. Unremarkable temporal lobes. No mesial temporal sclerosis. BLEED: None MASS EFFECT: No mass effect DIFFUSION RESTRICTION: None GRADIENT ECHO PARENCHYMAL SIGNAL LOSS: None MIDBRAIN: The midbrain structures are unremarkable. PETTY: Unremarkable MEDULLA: Unremarkable INTERNAL AUDITORY CANALS: Unremarkable SINUSES: Unremarkable ORBITS: Grossly unremarkable MASTOIDS: Unremarkable ENHANCEMENT: No pathologic enhancement incidental bony prominence posterior right portion of the C1 arch. MR/MR head/brain wo/w con IMPRESSION: Normal MRI the brain with and without contrast Impression dictated by: Maximino Garner M.D.07/23/2024 10:42 PM Dictation Location: [place] [address] Transcribed By: [facility] 07/23/242241 Dictated By: Maximino Garner DO 07/23/242233 Signed By: 07/23/242241 [facility] BACTERIAL VAGINOSIS NAATon 0 07-08-2024 Lactobacillus crispatus+gasseri+shirlene enii + Gardnerella vaginalis + Atopobium vaginae rRNA FERMÍN+probe Ql (Vag fld) Detected Abnormal Not detected [facility] Comment on above: Order Comment: Speci men Type: SWABOrdering Facility: [facility] Address: [address] [place] [address] Performed By: #### C VTV, BVAMP ####[facility] LABCL[facility] [id number] [place] [address] [place] Bacteria Ur Culton Bacteria identified Cx Nom (U) CULTURE, URINE: No growth (<1,000 CFU/ml) Normal [facility] Comment on above: Performed By: #### 6 30-4 ####[facility] [id number] [place] [address] [place] C. trachomatis+N. gonorrhoea e DNA FERMÍN+probe Ql (Unsp spec)on 07-08-2024 C. trachomatis rRNA FERMÍN+probe Ql (Unsp spec) Not detected Normal Not detected [facility] Comment on above: Order Comment: Speci men Type: SWABOrdering Facility: [facility] Address: [address] [place] [address] Performed By: #### 3 6902-5 ####[facility] [id number] [place] [address] [place] N. gonorrhoeae rRNA FERMÍN+probe Ql (Unsp spec) Not detected Normal Not detected [facility] Comment on above: Order Comment: Speci men Type: SWABOrdering Facility: [facility] Address: [address] [place] [address] Performed By: #### 3 6902-5 ####[facility] LABIA [id number] [place] [address] [place] RENE/TRICHOMONAS NAATon 0 07-08-2024 C. glabrata RNA FERMÍN+probe Ql (Vag fld) Not detected Normal Not detected [facility] Comment on above: Order Comment: Speci men Type: SWABOrdering Facility: [facility] Address: [address] [place] [address] Performed By: #### C VTV, BVAMP ####[facility] [id number] [place] [address] [place] Rene sp DNA FERMÍN+probe Ql (Vag fld) Not detected Normal Not detected [facility] Comment on above: Order Comment: Speci men Type: SWABOrdering Facility: [facility] Address: [address] [place] [address] Result Comment: The Rene species group target includes C. albicans, C. tropicalis, C. parapsilosis, and C. dubliniensis. Performed By: #### C VTV, BVAMP ####[facility] LABIA [id number] [place] [address] [place] T. vaginalis DNA FERMÍN+probe Ql (Unsp spec) Not detected Normal Not detected [facility] Comment on above: Order Comment: Speci men Type: SWABOrdering Facility: [facility] Address: [address] [place] [address] Performed By: #### C VTV, BVAMP ####[facility] LABIA [id number] [address] [address] [place] CNOVon 07-08-2024 CNOV Office Visit (FMIUNI ) -------- TRAVON DAO ([id number]) 1 F Date Time Provider Department 07/08/24 3:40 PM ANTIONETTE BENITEZ FMIUNI During your visit today, we recorded the following information about you: Temperature Pulse Blood pressure Weight 98.7 degrees 68/minute 137/92 65.9 kg Last Period 06/17/24 Antionette Benitez, 07/08/2024 4:26 PM Signed ASSESSMENT/PLAN: 1. Right flank pain - ICD9: 789.09, ICD10: R10.9 (primary diagnosis) -She has had 3 days of right flank pain, occurring mostly at night. Also reporting urinary frequency, intermittent dysuria. Also having new cloudy vaginal discharge. Denies any new sexual partners. Unclear cause. She may be passing a kidney stone versus right back strain/spasm. UA in office was just positive for protein. Will send out formal urinalysis and culture. Treat empirically as back pain. Recommend she take naproxen 1-2 times daily as needed. Can also take cyclobenzaprine at night. Recommend follow-up in 1 to 2 weeks if not improving. - URINALYSIS, REFLEX MICROSCOPIC - BACTERIAL CULTURE, URINE - CYCLOBENZAPRINE 10 MG TABLET 2. Vaginal discharge - ICD9: 623.5, ICD10: N89.8 -She does report new cloudy vaginal discharge, denies any new partners. Ordered vaginitis panel and test for GC. Follow-up based on labs. - RENE/TRICHOMONAS NAAT - BACTERIAL VAGINOSIS NAAT - GONORRHEA/CHLAMYDIA NAAT CC: Patient presents with: Kidney Problem: Frequent urination,burning x 4 days HPI: Travon is a 18 year old female that presents with right lower back pain, frequent urination. She started having right sided low back pain on Monday, says it happens mostly at night. She has also started feeling it on the left side. She denies radiation to the legs. She did endorse chills but no fevers. She says she has been urinating frequently. She describes it as a burning sensation; says it is intermittent. No hematuria. She denies any history of nephrolithiasis. She does endorse cloudy vaginal discharge; she does believe she is ovulating. No new partners. ROS: See HPI History: Medical history, surgical history, social history and allergies were reviewed and updated in the system. PHYSICAL EXAM: BP 137/92 Pulse 68 Temp 98.7 Wt 145 lb 4.5 oz (65.9kg) SpO2 100% LMP 06/17/2024 General Appearance: Well appearing, alert, in no acute distress, well-hydrated, well nourished.. Lungs: Lungs clear to auscultation. No wheezing, rhonchi, rales.. Heart: RRR without murmur, gallop, or rubs. No ectopy. Abdomen: Generalized abdominal tenderness without guarding or rebound. Normal bowel sounds. Mild costovertebral angle tenderness on the right, none on the left. Musculoskeletal: No spinous process tenderness. Dr. Antionette Benitez, DO Allergies As of Date: 07/08/2024 Noted Allergy Reaction CIPROFLOXACIN 04/05/2024 14 - Other: See Comments Comments: Heart palp, hard time breathing, shaking Date Reviewed: 07/08/2024 Reviewed by: Freddy Hebert MA - Fully Assessed Reason for Visit: Kidney Problem [61] Cmt: Frequent urination,burning x 4 days Primary Visit Diagnosis:Right flank pain [R10.9] Other Visit Diagnosis:Vaginal discharge [N89.8] Order(s):UA DIP, URINE (POC) [[id number]] Order #: [id number]. #:[id number] URINALYSIS, REFLEX MICROSCOPIC [[id number]] Order #: [id number]. #:[id number] BACTERIAL CULTURE, URINE [SQURCUL] Order #: [id number]. #:[id number] RENE/TRICHOMONAS NAAT [SQCVTV] Order #: [id number]. #:[id number] BACTERIAL VAGINOSIS NAAT [SQBVAMP] Order #: [id number]. #:[id number] GONORRHEA/CHLAMYDIA NAAT [SQGCCT] Order #: [id number]. #:[id number] cyclobenzaprine (FLEXERIL) 10 mg tabletTake 1 tablet by mouth daily at bedtime for 14 days.Disp: 14 tabletRfl: 0 Prescriptions as of 07/11/2024 - metroNIDAZOLE (FLAGYL) 500 mg tablet Take 1 tablet by mouth two times a day for 7 days. - cyclobenzaprine (FLEXERIL) 10 mg tablet Take 1 tablet by mouth daily at bedtime for 14 days. - levothyroxine (SYNTHROID) 25 mcg tablet Take 1 tablet by mouth once daily. - naproxen (NAPROSYN) 500 mg tablet Take 1 tablet by mouth once daily as needed (Headache). - hydrOXYzine HCl (ATARAX) 25 mg tablet Take 25 mg by mouth two times a day as needed. - FLUoxetine (PROZAC) 10 mg capsule Take 1 capsule by mouth every afternoon. Problem List As Of Date 07/08/2024 Noted Resolved Anxiety [F41.9] 02/26/2016 Borderline personality disorder (HCC) [F60.3] 04/05/2024 Vasovagal syncope [R55] 05/07/2024 Sinus tachycardia [R00.0] 05/07/2024 Subclinical hypothyroidism [E03.8] 05/07/2024 Cervicogenic headache [G44.86] 05/07/2024 Prescriptions ordered this encounter Disp Refills Start End CYCLOBENZAPRINE 10 MG TABLET 14 t* 0 07/08/2024 07/22/2024 Route: ORAL Sig: Take 1 tablet by mouth daily at bedtim (more content not included)... Normal [facility] UA DIP, URINE (POC)on 2024 BILIRUBIN UA (POCT) Negative Negative [facility] CLARITY UA (POCT) Clear [facility] COLOR UA (POCT) Yellow [facility] GLUCOSE UA (POCT) Negative Negative mg/dL [facility] Hemoglobin Ql (U) Negative Negative [facility] Interpretation and review of laboratory results Abnormal [facility] KETONE UA (POCT) Negative Negative mg/dL [facility] LEUKOCYTES UA (POCT) Negative Negative [facility] NITRITE UA (POCT) Negative Negative [facility] PH UA (POCT) 6.5 4.5 - 8.0 [facility] Protein Ql (U) Trace Abnormal Negative mg/dL [facility] SPECIFIC [place] UA (POCT) 1.025 1.005 - 1.030 [facility] UROBILINOGEN UA (POCT) 0.2 Sue l E.U./dL [facility] Location:[facility], [address] [place] [address], [address] [place] [address] POINT OF CARE [facility] URINALYSIS, REFLEX MICROSCOP ICon 07-08-2024 Bacteria LM.HPF (Urine sed) [#/Area] Negative Normal Negative [facility] Comment on above: Order Comment: Speci men Type: URINE SPECIMENOrdering Facility: [facility] Address: [address] [place] [address] Performed By: #### L [id number] ####[facility] LABCLIA [id number] [place] [address] [place] Bilirubin Ql (U) Negative Normal Negative [facility] Comment on above: Order Comment: Speci men Type: URINE SPECIMENOrdering Facility: [facility] Address: [address] [place] [address] Performed By: #### L [id number] ####[facility] LABIA [id number] [place] [address] [place] Clarity (Unsp spec) Clear Normal Clear [facility] Comment on above: Order Comment: Speci men Type: URINE SPECIMENOrdering Facility: [facility] Address: [address] [place] [address] Performed By: #### L [id number] ####[facility] LABCLIA [id number] [place] [address] [place] Color (U) Yellow Normal Yellow [facility] Comment on above: Order Comment: Speci men Type: URINE SPECIMENOrdering Facility: [facility] Address: [address] [place] [address] Performed By: #### L [id number] ####[facility] LABCLIA [id number] [address] Epithelial cells LM.HPF (Urine sed) [#/Area] None Seen Normal [facility] Comment on above: Order Comment: Speci men Type: URINE SPECIMENOrdering Facility: [facility] Address: [address] [place] [address] Performed By: #### L [id number] ####[facility]CLIA [id number] [address] Glucose Test strip (U) [Mass/Vol] Negative Normal Negative [facility] Comment on above: Order Comment: Speci men Type: URINE SPECIMENOrdering Facility: [facility] Address: [address] [place] [address] Performed By: #### L [id number] ####[facility] LABCLIA [id number] [place] [address] [place] Hemoglobin Ql (U) Trace Abnormal Negative [facility] Comment on above: Order Comment: Speci men Type: URINE SPECIMENOrdering Facility: [facility] Address: [address] [place] [address] Performed By: #### L [id number] ####[facility] LABCLIA [id number] [address] [place] Hyaline casts (Urine sed) [#/Area] 0 /[LPF] Normal 0 /LPF [facility] Comment on above: Order Comment: Speci men Type: URINE SPECIMENOrdering Facility: [facility] Address: [address] [place] [address] Performed By: #### L [id number] ####[facility] LABCLIA [id number] [address] [place] Ketones Ql (U) Negative Normal Negative [facility] Comment on above: Order Comment: Speci men Type: URINE SPECIMENOrdering Facility: [facility] Address: [address] [place] [address] Performed By: #### L [id number] ####[facility] LABCLIA [id number] [address] [place] [address] [place] Leukocyte esterase Test strip Ql (U) Negative Normal Negative [facility] Comment on above: Order Comment: Speci men Type: URINE SPECIMENOrdering Facility: [facility] Address: [address] [place] [address] Performed By: #### L [id number] ####[facility] LABCLIA [id number] [place] [address] [place] Nitrite Ql (U) Negative Normal Negative [facility] Comment on above: Order Comment: Speci men Type: URINE SPECIMENOrdering Facility: [facility] Address: [address] [place] [address] Performed By: #### L [id number] ####[facility] LABCLIA [id number] [place] [id number] [place] pH (U) 6.5 [pH] Normal <8.5 [facility] Comment on above: Order Comment: Speci men Type: URINE SPECIMENOrdering Facility: [facility] Address: [address] [place] [address] Performed By: #### L [id number] ####[facility] LABCLIA [id number] [address] [place] [address] [place] Protein (U) [Mass/Vol] Trace Abnormal Negative [facility] Comment on above: Order Comment: Speci men Type: URINE SPECIMENOrdering Facility: [facility] Address: [address] [place], [place] [id number] Performed By: #### L [id number] ####[facility] LABCLIA [id number] [place] [id number] [place] RBC LM.HPF (Urine sed) [#/Area] 0-2 /HPF Normal 0-2 /HPF [facility] Comment on above: Order Comment: Speci men Type: URINE SPECIMENOrdering Facility: [facility] Address: [address] [place] [address] Performed By: #### L [id number] ####[facility] LABIA [id number] [place] [address] [place] Specific gravity (U) [Rel density] 1.024 Normal 1.005-1.030 [facility] Comment on above: Order Comment: Speci men Type: URINE SPECIMENOrdering Facility: [facility] Address: [address] [place] [address] Performed By: #### L [id number] ####[facility] LABIA [id number] [address] [place] Urobilinogen Ql (U) 0.2 EU/dL Normal 0.2-1.0 EU/dL [facility] Comment on above: Order Comment: Speci men Type: URINE SPECIMENOrdering Facility: [facility] Address: [address] [place] [address] Performed By: #### L [id number] ####[facility] [id number] [place] [address] [place] WBC LM.HPF (Urine sed) [#/Area] 0-5 /HPF Normal 0-5 /HPF [facility] Comment on above: Order Comment: Speci men Type: URINE SPECIMENOrdering Facility: [facility] Address: [address] [place] [address] Performed By: #### L [id number] ####[facility] LABIA [id number] [place] [address] [place] TSH W/REFLEX FT4on 5 TSH Qn 2.340 m[IU]/L Normal 0.510-4.300 [facility] Comment on above: Order Comment: Speci men Type: BLOOD SPECIMENOrdering Facility: [facility] Address: [address] [place] [address] Result Comment: If t he patient is , TSH reference range varies by gestational period: First Trimester (weeks 9-12): 0.180-2.990 mIU/L Second Trimester: 0.110-3.980 mIU/L Third Trimester: 0.480-4.710 mIU/L Malcolm Molina et al. A Practical Approach for the Verifications and Determination of Site- and Trimester-Specific Reference Intervals for Thyroid Function tests in . Thyroid, 2019:29:3:412-420. Rubio Jade, et al. 2017 Guidelines of the [place] Thyroid Association for the Diagnosis and Management of Thyroid Disease during and the . Thyroid, 2017:27:3:315-389. Performed By: #### T [facility] ####[facility] LABCLIA [id number] [facility] [address] STATES OF [facility] CNOVon 05-07-2024 CNOV Office Visit (FMIUNI ) -------- TRAVON STALLWORTH ([id number]) 1 F Date Time Provider Department 05/07/24 4:00 PM ANTIONETTE BENITEZ FMIUNI During your visit today, we recorded the following information about you: Pulse Blood pressure Weight Height 93/minute 100/60 64.1 kg 1.753 m Antionette Benitez DO 05/07/2024 7:21 PM Signed ASSESSMENT/PLAN: 1. Vasovagal syncope - ICD9: 780.2, ICD10: R55 (primary diagnosis) 2. Sinus tachycardia - ICD9: 427.89, ICD10: R00.0 -Reviewed Holter monitor with patient and discussed that she had no significant arrhythmias and that her recorded palpitations were consistent with sinus tachycardia. She is still reporting intermittent syncopal episodes, although these typically occur when she is having bowel movements. Suspect these are vasovagal, although cannot rule out other cause such as POTS, or functional cause given history of BPD. Provided referral to cardiology so that they can evaluate and see if tilt table test is warranted. In interim, recommend he continue compression socks, increasing salt intake. Will follow-up after she sees cardiology. - CONSULT TO CARDIOLOGY 3. Subclinical hypothyroidism - ICD9: 244.8, ICD10: E03.8 -She does report multiple nonspecific symptoms including daily headaches, syncopal episodes, tremors, cold hands and feet, tinnitus, irregular bowel movements. She did have mild elevation of her TSH 6.6. Discussed that symptoms could be related to subclinical hypothyroidism. Will start levothyroxine 25 mcg daily. Recommended follow-up in 4 weeks virtually. - LEVOTHYROXINE 25 MCG TABLET 4. Cervicogenic headache - ICD9: 784.0, ICD10: G44.86 -She reports daily headaches which I suspect are cervicogenic versus occipital neuralgia. Will start with naproxen 500 mg nightly 3-4 times per week as needed. If not effective can consider other options such as gabapentin/pregabalin versus duloxetine. Will follow-up in 4 weeks. - NAPROXEN 500 MG TABLET 5. Borderline personality disorder (HCC) - ICD9: 301.83, ICD10: F60.3 -She is following with psychiatry and is taking time off for this semester and next. She did recently stop her aripiprazole. Recommended continuing fluoxetine and hydroxyzine and following up for appropriate medication regimen. CC: Patient presents with: Follow Up: With blood pressure Also for heart palpitations Passed out 2 days ago HPI: Travon is a 18 year old female that presents with follow-up for palpitations, syncopal episodes, erratic blood pressures. She says that her blood pressures have still been quite erratic and at times when she is measured it has been in the 170s. She says that typically when she has significant palpitations or anxiety she will check her blood pressure and notes that it is significant elevated. She did do the Holter monitor which not show any significant arrhythmias and her activity or events were consistent with sinus tachycardia. She has reported multiple episodes of passing out when she is on the toilet and defecating. She says this typically occurs in the evenings. She denies syncopal episodes outside of the restroom. He is using compression socks to help with her symptoms, has not added salt to her diet. She is reporting multiple other symptoms including intermittent lightheadedness, pain in bilateral calves and feet, tremors, cold hands and feet, headaches, ringing in the ears, upset stomach, irregular bowel movements, poor and foggy memory. She says that she has daily headaches, typically posterior and left-sided. Do not change with position or worsen with Valsalva. ROS: See HPI History: Medical history, surgical history, social history and allergies were reviewed and updated in the system. PHYSICAL EXAM: BP 100/60 Pulse 93 Ht 5' 9.016 (1.75m) Wt 141 lb 5 oz (64.1kg) SpO2 99% LMP 03/18/2024 BMI 20.86 kg/(m2). General Appearance: Well appearing, alert, in no acute distress, well-hydrated, well nourished.. Ears: External ears normal, canals clear. Nose/Sinuses: Nares normal, septum midline, mucosa normal, no drainage or sinus tenderness. Oropharynx: Lips, mucosa, and tongue normal, teeth and gums normal, oropharynx normal. Neck: Mild tenderness to palpation of left trapezius insertion, mild paraspinal spasm. Lungs: Lungs clear to auscultation. No wheezing, rhonchi, rales.. Heart: RRR without murmur, gallop, or rubs. No ectopy. Neurologic: No gross focal deficits on exam, normal reflexes, mild tenderness and aggravation of headaches with palpation of left trapezius insertion/left occiput. Dr. Antionette Benitez, Antionette Nunez DO 05/07/2024 4:48 PM Signed 1) Start levothyroxine 25 mcg daily. We'll take in morning 30 minutes before eating other food or medications. 2) We'll take naproxen 500 mg as needed at bedtime for severe headaches. Can use 3-4 times p (more content not included)... Normal [facility] HOLTER MONITOR 48 HOURon IMPRESSIONS AND FINDINGS: Sinus rhythm with periods of sinus tachycardia(18%). Maximum HR-164 bpm, Minimum HR-45 bpm, Average HR-79 bpm. Very rare SVE's seen in isolation. Very rare VE's seen in isolation. Patient activated thier event marker at times correlating to sinus rhythm/sinus tachycardia. Patient did not record any symptoms. Scanned on 04/12/2024 by Rebeca Fish. Confirmed by MD VICTORINA, CHARU ([id number]) on 04/23/2024 3:37:54 PM Hookup Date: 20240410 Hookup Time: [id number] Recording Duration: [id number] S Minimum Heart Rate: 45 BPM Minimum Heart Rate Date/Time: 20240411 Maximum Heart Rate: 164 BPM Maximum Heart Rate Date/Time: 20240412 Average Heart Rate: 79 BPM Longest RR: 1.828 S Longest RR DATE/TIME: 20240411 QRS complexes: [id number] Ventricular Ectopics: 5 Ventricular Isolated Beats: 5 Ventricular Bigeminal Cycles: 0 Ventricular Couplets: 0 Ventricular Runs: 0 Ventricular Beats in Runs: 0 Supraventricular Ectopics: 7 Supraventricular Isolated Beats: 7 Supraventricular Couplets: 0 Supraventricular Runs: 0 Supraventricular Beats in Runs: 0 Overreading Physician: CHARU PRAJAPATI [facility] CHEMISTRYOrdered By: SYSTEM SYSTEM on 04-21-2024 Troponin HS pg/mL Low 10.10 - 27.10 pg/mL [facility] Comment on above: Interpretive Data: T he 95% CI (Confidence Interval) PPV (Positive Predictive Value) for myocardial infarction in females is 38 pg/mL, in males 51 pg/mL. The results should be used in conjunction with clinical conditions of myocardial infarction. (Access High Sensitivity Troponin I Instructions For Use, Lashawn Thelma, November 2017) ED Clinical Summaryon 2023 ED Clinical Summary ED Clinical Summary [place] [address] ED Clinical Summary Person Information Name: TRAVON STALLWORTH[place] Age: 18 Years : 2005 Sex: Female Language: Bermudian PCP: NONE, XXXX Marital Status: Single Visit Id: Visit Reason: Nausea; Chest pain; Syncope/Near syncope; KEEPS PASSING OUT ,DIARRHEA ,HIGH BLOOD PRESSURE,TREMERS Speciality: Acuity: 3 Enc Type: Emergency Med Service: Emergency Arrival: 04/20/2024 22:48:27 Discharge: 04/21/2024 01:16:05 LOS: 000 02:28 Checkin: 04/20/2024 22:48:27 Checkout: 04/21/2024 01:16:05 Dispo Type: Home (Routine DC) EVENTS: Event Name Event Status Request Date/Time Start Date/Time Complete Date/Time Arrive Complete 04/20/2024 22:48:27 04/20/2024 22:48:27 04/20/2024 22:48:27 Document Home Meds Request 04/20/2024 22:48:27 Triage Complete 04/20/2024 22:48:27 04/20/2024 23:00:20 04/20/2024 23:00:20 EKG Complete 04/20/2024 22:57:23 04/20/2024 23:04:15 Registration Complete 04/20/2024 23:00:59 04/20/2024 23:00:59 04/20/2024 23:00:59 Reg Complete Request 04/20/2024 23:00:59 Reg Bed Request Complete 04/20/2024 23:00:59 04/20/2024 23:00:59 04/20/2024 23:00:59 Pending Labs Complete 04/20/2024 23:06:08 04/21/2024 00:59:41 Lab Complete 04/20/2024 23:06:08 04/20/2024 23:39:00 Patient Care Request 04/20/2024 23:06:08 RT Request 04/20/2024 23:06:08 Pending Labs Complete 04/20/2024 23:13:59 04/20/2024 23:13:59 04/20/2024 23:39:00 Lab Complete 04/20/2024 23:13:59 04/20/2024 23:13:59 04/20/2024 23:39:00 Bed Assign Complete 04/21/2024 00:07:40 04/21/2024 00:07:40 04/21/2024 00:07:40 Dr Exam Complete 04/21/2024 00:07:40 04/21/2024 00:08:41 04/21/2024 00:08:41 RN Exam Complete 04/21/2024 00:07:40 04/21/2024 00:15:05 04/21/2024 00:15:05 Registration Request 04/21/2024 00:08:41 Discharge Complete 04/21/2024 01:02:51 04/21/2024 01:16:12 04/21/2024 01:16:12 Transfer Complete 04/21/2024 01:16:12 04/21/2024 01:16:12 04/21/2024 01:16:12 ADDRESS: [facility] [address] [place] [id number] PHYS DOC NOTES: MEDICAL INFORMATION: Prescriptions Given: Medications to Continue with No Changes Other Medications fluoxetine (Prozac) By Mouth every day. hydrOXYzine PATIENT EDUCATION INFORMATION: Instructions: Nonspecific Chest Pain, Adult; Syncope, Adult Follow up: With: Address: When: [facility], [address] [place] [address] Business (1) In 5 days 04/26/2024 DIAGNOSIS: Chest pain; Palpitations; Syncope Normal [facility] ED Note-Physicianon 04-21-20 ED Note-Physician ED Note-Physician Basic Information Time Seen: Hermelindo Howard DO 04/21/2024 00:08 Chief Complaint Hypertension, shaking and passing out since last night. (L) side chest pain with radiation to axilla and hands, feet. Nausea, no vomiting. History of Present Illness HPI: Patient is a 18-year-old female with past medical history of bipolar disorder, depression, hypothyroidism who presents the ED for chest pains, palpitations, and syncope. Patient states that over the past month she has been having some intermittent chest pains as well as palpitations. She states that she has followed up with her primary care physician and recently had a Holter monitor and is currently awaiting the result. Last night she had an episode where she passed out while she was with her boyfriend and had some whole body shaking. She states that this is not happened in the past. She did have 2 more episodes today where she would be sitting at rest on her phone when she would slump over and have some brief shaking before awaking. She states that she feels like she has some mild brain fog when she has these episodes. She denies any vision changes, numbness, weakness. She has had some nausea but no vomiting. She states that she has had diarrhea. ROS: Pertinent review of systems conducted and is negative except as noted above. Physical exam: General: nontoxic appearing and in no distress HEENT: Mucous membranes moist Neuro: awake and alert. Cranial nerves II through XII are intact. Gross motor sensation all 4 extremities intact. Neck: supple, trachea midline Card: Heart regular rate and rhythm no murmur Resp: Lungs clear to auscultation no wheeze or rhonchi Abd: Soft and nondistended. No tenderness to palpation with no rebound or guarding. Ext: No gross deformity or edema Physical Exam Vitals & Measurements T: 36.9 ???C(Oral) HR: 83(Peripheral) RR: 20 BP: 133/93 SpO2: 98% HT: 175.2 cm WT: 62.3 kg BMI: 20.3 Medical Decision Making MEDICAL DECISION MAKING Number and Complexity of Problems Differential Diagnosis: [] [facility] Data External documents reviewed: N/A My EKG interpretation: Noted in chart if applicable My CT interpretation: N/A My X-ray interpretation: Noted in chart if applicable My Ultrasound interpretation: N/A Decision rules/scores evaluated: Heart Score for Major Cardiac Event History: Example factors for history - pattern of chest pain, onset, duration, relation with exercise, stress or cold, localization, concominant symptoms. reaction to sublingual nitrates, [] Highly suspicious +2 [] Moderately suspicious +1 [X] Slightly suspicious 0 EKG: [] Significant ST-Depression +2 [X] Non specific repolarization disturbance +1 [] Normal 0 Age: [] >= 65 +2 [] 45-65 + 1 [X] <45 0 Risk Factors: (HLD, HTN, DM, Cigarette Smoking, Pos Family Hx, Obesity) [] >3 risk factors or hx of atheroslerotic disease + 2 [] 1-2 risk factors + 1 [X] No risk factors known 0 Troponin: [] >= 3X normal + 2 [] 1-3X normal + 1 [X] <= Normal 0 [X] 0-3 Points 0.9 - 1.7% risk of major adverse cardiac event in 6 weeks [] 4-6 Points 12-16.6% risk of major adverse cardiac event in 6 weeks [] 7-10 Points 50-65% risk of major adverse cardiac event in 6 weeks [X] 0-3 Points with 2 sets of negative cardiac markers <1% risk of major adverse cardiac event in 30 days. Discussed with: N/A Treatment and Disposition ED Course: Patient is nontoxic-appearing and in no distress. She is neurologically intact to my exam. She is afebrile here in the ED. Initial blood work is overall reassuring including troponin. Repeat 1 hour troponin remains stable and within normal limits. Patient remained asymptomatic while here in the ED. Is unclear if she may be having more syncopal episodes versus possible seizure activity. She had a Holter monitor recently performed and has scheduled follow-up with cardiology as an outpatient. I encouraged her to keep this appointment and to let them know about these new episodes. Will also give her referral to neurology to evaluate for possible seizure activity. Patient and mother state understanding and agreement with this plan. Patient was discharged in stable condition. Shared decision making: As above Code status: N/A Assessment/Plan Chest pain (R07.9: Chest pain, unspecified) Palpitations (R00.2: Palpitations) Syncope (R55: Syncope and collapse) Orders: Basic Metabolic Panel CBC w/ Auto Diff D-Dimer ED Cardiac Monitoring eGFR Oxygen Saturation Oxygen Therapy PT & PTT Saline Lock Insert Troponin 0 Hr. Troponin 1 Hr. Disposition Plan Discharge Prescription List Prescriptions No active prescription medications Follow-up With When Contact Information Ernst Danielson In 5 days 04/26/2024 VAISHALI RIVERA (more content not included)... Normal [facility] Comment on above: Result Comment: Elec tronically Signed By: Hermelindo Howard DO\.br\Date and Time Signed: 04/21/24 01:04 EST ED Patient Summaryon 024 ED Patient Summary ED Patient Summary [address] [address] Patient Discharge Instructions Person Information Name: TRAVON STALLWORTH Age: 18 Years Arrival Date: 04/20/2024 22:48:27 Discharge Diagnosis: Chest pain; Palpitations; Syncope Primary Care Physician: NONE, XXXX Provider Information Primary Provider: Hermelindo Howard DO Advanced Panel Installer:None The exam and treatment you received in the Emergency Department were for an urgent problem and are not intended as complete care. It is important that you follow up with a doctor, nurse practitioner, or physician???s bilingual medical assistant for ongoing care. If your symptoms become worse or you do not improve as expected and you are unable to reach your usual health care provider, you should return to the Emergency Department. We are available 24 hours a day. TRAVON STALLWORTH has been given the following list of patient education materials, prescriptions and follow-up instructions: Follow-up Instructions: With: Address: When: Ernst [facility], [address] [place] [address] Business (1) In 5 days 04/26/2024 In the event that this physician does not participate in your insurance network, please consult with your insurance company to find a nearby participating provider. Patient Education Materials: Nonspecific Chest Pain, Adult; Syncope, Adult A MESSAGE TO ALL PATIENTS REGARDING OPIOIDS PRESCRIPTION OPIOIDS: WHAT YOU NEED TO KNOW Prescription opioids can be used to help relieve tofhugqv-[id number] pain and are often prescribed following a surgery or injury, or for certain health conditions. These medications can be an important part of the treatment but also come with serious risks. It is important to work with your healthcare provider to make sure you are getting the safest, most effective care. WHAT ARE THE RISKS AND SIDE EFFECTS OF OPIOID USE? Prescription opioids carry serious risks of addiction and overdose, especially with prolonged use. An opioid overdose, often marked by slowed breathing, can cause sudden . The use of prescription opioids can have a number of side effects as well, even when taken as directed: ??? Tolerance???meaning you might need to take more of the medication for the same pain relief ??? Physical dependence???meaning you have symptoms of withdrawal when a medication is stopped ??? Increased sensitivity to pain ??? Constipation ??? Nausea, vomiting, and dry mouth ??? Sleepiness and dizziness ??? Confusion ??? Depression ??? Low levels of testosterone that can result in lower sex drive, energy, and strength ??? Itching and sweating RISKS ARE GREATER WITH: ??? History of drug misuse, substance use disorder, or overdose ??? Mental health conditions (such as depression or anxiety) ??? Sleep apnea ??? Older age (65 years and older) ??? Avoid alcohol while taking prescription opioids. Also, unless specifically advised by your health care provider, medications to avoid include: ??? Benzodiazepines (such as Xanax or Valium) ??? Muscle relaxants (such as Soma or Flexeril) ??? Hypnotics (such as Ambien or Lunesta) ??? Other prescription opioids KNOW YOUR OPTIONS Talk to your health care provider about ways to manage your pain that don???t involve prescription opioids. Some of these options may actually work better and have fewer risks and side effects. Options may include: ??? Pain relievers such as acetaminophen, ibuprofen, and naproxen ??? Some medication that are also used for depression or seizures ??? Physical therapy and exercise ??? Cognitive behavioral therapy, a psychological, goal-directed approach, in which patients learn how to modify physical, behavioral, and emotional triggers of pain and stress. IF YOU ARE PRESCRIBED OPIOIDS FOR PAIN: ??? Never take opioids in greater amounts or more often than prescribed. ??? Follow up with your primary health care provider. o Work together to create a plan on how to manage your pain. o Talk about ways to help manage your pain that don???t involve prescription opioids. o Talk about any and all concerns and side effects. ??? Help prevent misuse and abuse o Never sell or share prescription opioids. o Never use another person???s prescription opioids. ??? Store prescription opioids in a secure place and out of reach of others (this may include visitors, children, friends, and family). ??? Safely dispose of unused prescription opioids: Find your community drug take-back program or your pharmacy mail-back program, or flush them down the toilet, following guidance from the Food and Drug Administration (www.fda.gov/Drugs/Resou rcesForYou). ??? Visit www.cdc.gov/drugoverdose to learn about the risks of opioids abuse and overdose. ??? If you believe you may be struggling with addiction, tell your hea (more content not included)... Normal [facility] Troponin 1 Hr.on 04-21-2024 Troponin HS <2.30 Low 10.10-27.10 [facility] Comment on above: Order Comment: 0011 Result Comment: The 95% CI (Confidence Interval) PPV (Positive Predictive Value) for myocardial infarction in females is 38 pg/mL, in males 51 pg/mL. The results should be used in conjunction with clinical conditions of myocardial infarction. (Access High Sensitivity Troponin I Instructions For Use, Lashawn Thelma, November 2017) Performed By: #### 1 [id number] #### [facility] [address] [place] [address] BMPon 04-20-2024 Anion gap [Moles/Vol] 12 mmol/L Normal 6-16 [facility] Comment on above: Performed By: #### 2 [id number] #### [facility] [address] [place] [address] Calcium [Mass/Vol] 9.7 mg/dL Normal 8.9-11.1 [facility] Comment on above: Performed By: #### 2 [id number] #### [facility] [address] [place] [address] Chloride [Moles/Vol] 104 mmol/L Normal 101-111 [facility] Comment on above: Performed By: #### 2 [id number] #### [facility] [address] [place] [address] CO2 [Moles/Vol] 25 mmol/L Normal 21-31 [facility] Comment on above: Performed By: #### 2 [id number] #### [facility] [address] [place] [address] Creatinine [Mass/Vol] 1.0 mg/dL Normal 0.5-1.3 [facility] Comment on above: Performed By: #### 2 [id number] #### [facility] [address] [place] [address] Glucose [Mass/Vol] 159 mg/dL Normal 55-199 [facility] Comment on above: Performed By: #### 2 [id number] #### [facility] [address] [place] [address] Potassium [Moles/Vol] 3.8 mmol/L Normal 3.5-5.3 [facility] Comment on above: Performed By: #### 2 [id number] #### [facility] [address] [place] [address] Sodium [Moles/Vol] 137 mmol/L Normal 135-145 [facility] Comment on above: Performed By: #### 2 [id number] #### [facility] [address] [place] [address] Urea nitrogen [Mass/Vol] 17 mg/dL Normal 5-21 [facility] Comment on above: Performed By: #### 2 [id number] #### [facility] [address] [place] [address] Urea nitrogen/Creatinine [Mass ratio] 17 No Units Normal 10-20 [facility] Comment on above: Performed By: #### 2 [id number] #### [facility] [address] [place] [address] CBC w/ Auto Diffon 4 Basophils/100 WBC (Bld) 0.6 % Normal 0.0-2.0 [facility] Comment on above: Performed By: #### 2 [id number] #### [facility] [address] [place] [address] Basophils/Leukocytes Auto (Bld) [Pure # fraction] 0.0 E9/L Normal 0.0-0.2 [facility] Comment on above: Performed By: #### 2 [id number] #### [facility] [address] [place] [address] Eosinophils (Bld) [#/Vol] 0.3 E9/L Normal 0.0-0.5 [facility] Comment on above: Performed By: #### 2 [id number] #### [facility] [address] [place] [address] Eosinophils/100 WBC (Bld) 3.5 % Normal 0.0-8.0 [facility] Comment on above: Performed By: #### 2 677645 #### [facility] [address] [place] [address] Erythrocyte distribution width (RBC) [Ratio] 12.9 % Normal 10.9-14.2 [facility] Comment on above: Performed By: #### 2 [id number] #### [facility] [address] [place] [address] Hematocrit (Bld) [Volume fraction] 42.8 % Normal 34.0-46.0 [facility] Comment on above: Performed By: #### 2 [id number] #### [facility] [address] [place] [address] Hemoglobin (Bld) [Mass/Vol] 14.9 g/dL Normal 12.0-16.0 [facility] Comment on above: Performed By: #### 2 577453 #### [facility] [address] [place] [address] Lymphocytes (Bld) [#/Vol] 2.3 E9/L Normal 1.0-4.0 [facility] Comment on above: Performed By: #### 2 838813 #### [facility] [address] [place] [address] Lymphocytes/100 WBC (Bld) 26.4 % Normal 14.0-50.0 [facility] Comment on above: Performed By: #### 2 558321 #### [facility] [address] [place] [address] MCH (RBC) [Entitic mass] 30.1 pg Normal 27.0-34.0 [facility] Comment on above: Performed By: #### 2 058963 #### [facility] [address] [place] [address] MCHC (RBC) [Mass/Vol] 34.9 g/dL Normal 31.4-36.0 [facility] Comment on above: Performed By: #### 2 528107 #### [facility] [address] [place] [address] MCV (RBC) [Entitic vol] 86.3 fL Normal 80.0-100.0 [facility] Comment on above: Performed By: #### 2 221928 #### [facility] [address] [place] [address] Monocytes (Bld) [#/Vol] 0.6 E9/L Normal 0.2-1.0 [facility] Comment on above: Performed By: #### 2 418118 #### [facility] [address] [place] [address] Neutrophils (Bld) [#/Vol] 5.5 E9/L Normal 2.0-7.5 [facility] Comment on above: Performed By: #### 2 256564 #### [facility] [address] [place] [address] Neutrophils/100 WBC (Bld) 62.7 % Normal 36.0-75.0 [facility] Comment on above: Performed By: #### 2 353394 #### [facility] [address] [place] [address] Platelet mean volume (Bld) [Entitic vol] 7.2 fL Normal 6.4-10.8 [facility] Comment on above: Performed By: #### 2 782103 #### [facility] [address] [place] [address] Platelets (Bld) [#/Vol] 309.0 E9/L Normal 150.0-500.0 [facility] Comment on above: Performed By: #### 2 [id number] #### [facility] [address] [place] [address] RBC (Bld) [#/Vol] 5.0 E12/L Normal 4.3-5.9 [facility] Comment on above: Performed By: #### 2 529419 #### [facility] [address] [place] [address] WBC corrected for nucl RBC Auto (Bld) [#/Vol] 8.7 E9/L Normal 4.0-11.0 [facility] Comment on above: Performed By: #### 2 [id number] #### [facility] [address] [place] [address] CHEMISTRYOrdered By: SYSTEM SYSTEM on 04-20-2024 Anion gap [Moles/Vol] 12 mmol/L Normal 6 - 16 mEq/L R emisol Chem Calcium [Mass/Vol] 9.7 mg/dL Normal 8.9 - 11. 1 mg/dL [facility] Chloride [Moles/Vol] 104 mmol/L Normal 101 - 1 11 mmol/L [facility] CO2 [Moles/Vol] 25 mmol/L Normal 21 - 31 mmol/L [facility] Creatinine [Mass/Vol] 1.0 mg/dL Normal 0.5 - 1.3 mg/dL [facility] eGFR 82 mL/min/1.73 m2 Normal >=59mL/min /1 .73 m2 [facility] Glucose [Mass/Vol] 159 mg/dL Normal 55 - 199 mg/dL [facility] Potassium [Moles/Vol] 3.8 mmol/L Normal 3.5 - 5.3 mmol/L [facility] Sodium [Moles/Vol] 137 mmol/L Normal 135 - 145 mmol/L [facility] Troponin HS pg/mL Low 10.10 - 27.10 pg/mL [facility] Comment on above: Interpretive Data: T he 95% CI (Confidence Interval) PPV (Positive Predictive Value) for myocardial infarction in females is 38 pg/mL, in males 51 pg/mL. The results should be used in conjunction with clinical conditions of myocardial infarction. (Access High Sensitivity Troponin I Instructions For Use, Lashawn Thelma, November 2017) Urea nitrogen [Mass/Vol] 17 mg/dL Normal 5 - 21 mg/dL [facility] Urea nitrogen/Creatinine [Mass ratio] 17 mg/mg Normal 10 - 20 [facility] COAGULATIONOrdered By: Kulwinder Rodriguez on 04-20-2024 aPTT Coag (PPP) [Time] 31.6 s Normal 25.1 - 36.5 second(s) [facility] Comment on above: Interpretive Data: P arameter 15 days - 4 weeks 1 - 5 months 6 - 11 months 1 - 5 years 6 - 10 years 11 - 17 years PTT Mean: 35.4 (27.6-45.6) Mean: 33.5 (24.8-40.7) Mean: 32.4 (25.1-40.7) Mean: 31.6 (24.0-39.2) Mean: 31.6 (26.9-38.7) Mean: 31.0 (24.6-38.4) Pediatric Reference ranges were obtained from a study by José Sinclair et al. prepared from 1437 samples obtained at 7 different centers using the same coagulation reagent and instrumentation as [facility]. Currently there are no coagulation studies available worldwide for children to 14 days, and no normal ranges. Heparin therapeutic range (represented by Anti-Factor Xa activity of 0.2 - 0.4 U/mL) corresponds to PTT of 56.6 - 109.0 sec. Fibrin D-dimer FEU (PPP) [Mass/Vol] ng/mL FEU Low 215 - 500 ng/mL FEU [facility] Comment on above: Interpretive Data: T his assay is intended for use as an aid in the diagnosis of DVT or PE. These conditions cannot be excluded with certainty solely on the basis of a D-dimer concentration being within the reference range This D-Dimer assay may be used in conjunction with a non-high clinical pretest probability assessment to exclude deep-vein thrombosis(DVT). For exclusion of venous thrombosis or pulmonary embolism the analyte D-Dimer should not be used as an aid in patients with: Therapeutic dose anticoagulant therapy for >24 hours Fibrinolytic therapy within previous 7 days Trauma or surgery within previous 4 weeks Disseminated malignacies Aortic aneurysm Sepsis, severe infections, pneumonia, severe skin infections Liver cirrhosis INR Coag (PPP) [Relative time] 1.04 {INR} Invalid Interpretation Code [facility] Comment on above: Interpretive Data: I NR results are specifically intended to assess patients stabilized on long-term Anticoagulation therapy suggested INR s Less Intensive Anticoagulation 2.0 3.0 Conventional Range 3.0 4.5 PT Coag (PPP) [Time] 11.7 s Normal 9.4 - 1 2.5 second(s) [facility] Comment on above: Interpretive Data: 1 5 days - 4 weeks 1 - 5 months 6 -11 months 1-5 years 6-10 years 11 -17 years Mean: 11.2 (9.5-12.6) Mean: 11.0 (9.7-12.8) Mean: 11.0 (9.8-13.0) Mean: 11.3 (9.9-13.4) Mean: 11.7 (10.0-14.6) Mean: 11.8 (10.0 - 14.1) Pediatric Reference ranges were obtained from a study by José Sinclair et al. prepared from 1437 samples obtained at 7 different centers using the same coagulation reagent and instrumentation as [facility]. Currently there are no coagulation studies available worldwide for children to 14 days, and no normal ranges. D-Dimeron 04-20-2024 Fibrin D-dimer FEU (PPP) [Mass/Vol] <215 Low 215-500 [facility] Comment on above: Result Comment: This assay is intended for use as an aid in the diagnosis of DVT or PE. These conditions cannot be excluded with certainty solely on the basis of a D-dimer concentration being within the reference range This D-Dimer assay may be used in conjunction with a non-high clinical pretest probability assessment to exclude deep-vein thrombosis(DVT). For exclusion of venous thrombosis or pulmonary embolism the analyte D-Dimer should not be used as an aid in patients with: Therapeutic dose anticoagulant therapy for >24 hours Fibrinolytic therapy within previous 7 days Trauma or surgery within previous 4 weeks Disseminated malignacies Aortic aneurysm Sepsis, severe infections, pneumonia, severe skin infections Liver cirrhosis Performed By: #### 2 [id number] #### [facility] [address] [place] [address] HEMATOLOGYOrdered By: SYSTEM SYSTEM on 04-20-2024 Basophils/100 WBC (Bld) 0.6 % Normal 0.0 - 2.0 % [facility]e Basophils/Leukocytes Auto (Bld) [Pure # fraction] 0.0 E9/L Normal 0.0 - 0.2 E9/L [facility] Eosinophils (Bld) [#/Vol] 0.3 E9/L Normal 0.0 - 0.5 E9/L [facility] Eosinophils/100 WBC (Bld) 3.5 % Normal 0.0 - 8.0 % [facility] Erythrocyte distribution width (RBC) [Ratio] 12.9 % Normal 10.9 - 14.2 % [facility] Hematocrit (Bld) [Volume fraction] 42.8 % Normal 34.0 - 46.0 % [facility] Hemoglobin (Bld) [Mass/Vol] 14.9 g/dL Normal 12.0 - 16.0 gm/dL [facility] Lymphocytes (Bld) [#/Vol] 2.3 E9/L Normal 1.0 - 4.0 E9/L [facility] Lymphocytes/100 WBC (Bld) 26.4 % Normal 14.0 - 50.0 % [facility] MCH (RBC) [Entitic mass] 30.1 pg Normal 27.0 - 34.0 pg [facility] MCHC (RBC) [Mass/Vol] 34.9 g/dL Normal 31.4 - 36.0 gm/dL [facility] MCV (RBC) [Entitic vol] 86.3 fL Normal 80.0 - 100.0 fL [facility] Monocytes (Bld) [#/Vol] 0.6 E9/L Normal 0.2 - 1.0 E9/L [facility] Monocytes/100 WBC (Bld) 6.8 % Normal 4.0 - 14.0 % [facility] Neutrophils (Bld) [#/Vol] 5.5 E9/L Normal 2.0 - 7.5 E9/L [facility] Neutrophils/100 WBC (Bld) 62.7 % Normal 36.0 - 75.0 % [facility] Platelet mean volume (Bld) [Entitic vol] 7.2 fL Normal 6.4 - 10.8 fL [facility] Platelets (Bld) [#/Vol] 309.0 E9/L Normal 150.0 - 500.0 E9/L [facility] RBC (Bld) [#/Vol] 5.0 E12/L Normal 4.3 - 5.9 E12/L [facility] WBC corrected for nucl RBC Auto (Bld) [#/Vol] 8.7 E9/L Normal 4.0 - 11.0 E9/L [facility] PT & PTTon 04-20-2024 aPTT Coag (PPP) [Time] 31.6 second(s) Normal 25.1-36.5 [facility] Comment on above: Result Comment: Para meter 15 days - 4 weeks 1 - 5 months 6 - 11 months 1 - 5 years 6 - 10 years 11 - 17 years PTT Mean: 35.4 (27.6-45.6) Mean: 33.5 (24.8-40.7) Mean: 32.4 (25.1-40.7) Mean: 31.6 (24.0-39.2) Mean: 31.6 (26.9-38.7) Mean: 31.0 (24.6-38.4) Pediatric Reference ranges were obtained from a study by José Sinclair et al. prepared from 1437 samples obtained at 7 different centers using the same coagulation reagent and instrumentation as [facility]. Currently there are no coagulation studies available worldwide for children to 14 days, and no normal ranges. Heparin therapeutic range (represented by Anti-Factor Xa activity of 0.2 - 0.4 U/mL) corresponds to PTT of 56.6 - 109.0 sec. Performed By: #### 1 [id number] #### [facility] [address] [place] [address] INR Coag (PPP) [Relative time] 1.04 {INR} Invalid Interpretation Code [facility] Comment on above: Result Comment: INR results are specifically intended to assess patients stabilized on long-term Anticoagulation therapy suggested INR???s ???Less Intensive Anticoagulation??? 2.0 ??? 3.0 Conventional Range 3.0 ??? 4.5 Performed By: #### 1 [id number] #### [facility] [address] [place] [address] PT Coag (PPP) [Time] 11.7 second(s) Normal 9.4-12.5 [facility] Comment on above: Result Comment: 15 d ays - 4 weeks 1 - 5 months 6 -11 months 1- 5 years 6-10 years 11 -17 years Mean: 11.2 (9.5-12.6) Mean: 11.0 (9.7-12.8) Mean: 11.0 (9.8-13.0) Mean: 11.3 (9.9-13.4) Mean: 11.7 (10.0-14.6) Mean: 11.8 (10.0 - 14.1) Pediatric Reference ranges were obtained from a study by José Sinclair et al. prepared from 1437 samples obtained at 7 different centers using the same coagulation reagent and instrumentation as [facility]. Currently there are no coagulation studies available worldwide for children to 14 days, and no normal ranges. Performed By: #### 1 [id number] #### [facility] [address] [place] [address] Troponin 0 Hr.on 04-20-2024 Troponin HS <2.30 Low 10.10-27.10 [facility] Comment on above: Result Comment: The 95% CI (Confidence Interval) PPV (Positive Predictive Value) for myocardial infarction in females is 38 pg/mL, in males 51 pg/mL. The results should be used in conjunction with clinical conditions of myocardial infarction. (Access High Sensitivity Troponin I Instructions For Use, Lashawn Wellington, November 2017) Performed By: #### 1 [id number] #### [facility] [address] [place] [address] eGFRon 04-20-2024 eGFR 82 mL/min/1.73 m2 Normal >=59 [facility] Comment on above: Performed By: #### 1 [id number] #### [facility] [address] [place] [address] CNNURSEon 04-12-2024 CNNURSE Nurse Visit (STFLF) -------- TRAVON STALLWORTH ([id number]) 1 F Date Time Provider Department 04/12/24 3:30 PM NURSE GEOFFREY GILLESPIE [facility] STOHFelisha During your visit today, we recorded the following information about you: Mariangel Villarreal LPN 04/12/2024 1:22 PM Signed Patient returned holter monitor. Testing completed without incident Cassette processed per protocol. Diary faxed Mariangel Villarreal LPN Allergies As of Date: 04/12/2024 Noted Allergy Reaction CIPROFLOXACIN 04/05/2024 14 - Other: See Comments Comments: Heart palp, hard time breathing, shaking Date Reviewed: Never Reviewed Reason for Visit: Holter Download [1701] Primary Visit Diagnosis:Palpitations [R00.2] Prescriptions as of 04/12/2024 - hydrOXYzine HCl (ATARAX) 25 mg tablet Take 25 mg by mouth two times a day as needed. - FLUoxetine (PROZAC) 10 mg capsule Take 1 capsule by mouth every afternoon. - ARIPiprazole (ABILIFY) 5 mg tablet Take 5 mg by mouth daily at bedtime. - mometasone (ELOCON) 0.1 % cream Apply 1 Application to affected area. Problem List As Of Date 04/12/2024 Noted Resolved Anxiety [F41.9] 02/26/2016 Borderline personality disorder (HCC) [F60.3] 04/05/2024 Encounter Status:Closed by MARIANGEL VILLARREAL on 04/12/24 [facility] 04-10-2024 [facility] Nurse Visit (STFLF) -------- TRAVON STALLWORTH ([id number]) 1 F Date Time Provider Department 04/10/24 1:00 PM NURSE GEOFFREY [place] [facility] STFLF During your visit today, we recorded the following information about you: Allergies As of Date: 04/10/2024 Noted Allergy Reaction CIPROFLOXACIN 04/05/2024 14 - Other: See Comments Comments: Heart palp, hard time breathing, shaking Date Reviewed: Never Reviewed Reason for Visit: Holter Monitor Application [261] Visit Diagnoses:Elevated blood pressure reading without diagnosis of hypertension [R03.0] Palpitations [R00.2] Order(s):HOLTER MONITOR 48 HOUR [[id number]] Order #: [id number] Prescriptions as of 04/10/2024 - hydrOXYzine HCl (ATARAX) 25 mg tablet Take 25 mg by mouth two times a day as needed. - FLUoxetine (PROZAC) 10 mg capsule Take 1 capsule by mouth every afternoon. - ARIPiprazole (ABILIFY) 5 mg tablet Take 5 mg by mouth daily at bedtime. - mometasone (ELOCON) 0.1 % cream Apply 1 Application to affected area. Problem List As Of Date 04/10/2024 Noted Resolved Anxiety [F41.9] 02/26/2016 Borderline personality disorder (HCC) [F60.3] 04/05/2024 Disposition: Return in 2 days (on 04/12/2024). Follow-up and Disposition History for Encounter Date Provider Department Center 04/10/2024 [id number] GEOFFREY MEJÍA [facility] Encounter Status:Closed by ALLAN FRIEDMAN on 04/10/24 Normal [facility] HOLTER MONITOR 48 HOURon HOLTER MONITOR 48 HOUR Holter Report : IMPRESSIONS AND FINDINGS: Sinus rhythm with periods of sinus tachycardia(18%). Maximum HR-164 bpm, Minimum HR-45 bpm, Average HR-79 bpm. Very rare SVE's seen in isolation. Very rare VE's seen in isolation. Patient activated thier event marker at times correlating to sinus rhythm/sinus tachycardia. Patient did not record any symptoms. Scanned on 04/12/2024 by Rebeca Fish. Confirmed by MD VICTORINA, ZENAB ([id number]) on 04/23/2024 3:37:54 PM Hookup Date: 20240410 Hookup Time: [id number] Recording Duration: 596302 S Minimum Heart Rate: 45 BPM Minimum Heart Rate Date/Time: 20240411 Maximum Heart Rate: 164 BPM Maximum Heart Rate Date/Time: 20240412 Average Heart Rate: 79 BPM Longest RR: 1.828 S Longest RR DATE/TIME: 20240411 QRS complexes: 107764 Ventricular Ectopics: 5 Ventricular Isolated Beats: 5 Ventricular Bigeminal Cycles: 0 Ventricular Couplets: 0 Ventricular Runs: 0 Ventricular Beats in Runs: 0 Supraventricular Ectopics: 7 Supraventricular Isolated Beats: 7 Supraventricular Couplets: 0 Supraventricular Runs: 0 Supraventricular Beats in Runs: 0 Overreading Physician: CHARU PRAJAPATI MD Normal [facility] ECG COMPLETEon 04-07-2024 Atrial Rate 87 BPM [facility] Calculated P [place]enton 66 degrees [facility] Calculated R [place] 95 degrees [facility] Calculated T [place] 9 degrees [facility] P-R Interval 128 ms [facility] QRS Duration 82 ms [facility] QT Interval 340 ms [facility] QTC Calculation (Bazett) 409 ms [facility] Ventricular Rate 87 BPM [facility] NORMAL SINUS RHYTHM POSSIBLE LEFT ATRIAL ENLARGEMENT RIGHT AXIS NONSPECIFIC T WAVE ABNORMALITY ABNORMAL ECG NO PREVIOUS ECGS AVAILABLE Confirmed by GERARD MANUEL M.D. ([id number]) on 04/07/2024 1:19:49 PM [facility] NAME : JANIE STALLWORTH PID : [id number] : 2005 Gender : Female Race : ORD : Procedure Date : Apr 05 2024 16:17:37 Edit Date : Apr 07 2024 13:19:50 Diagnosis: NORMAL SINUS RHYTHM POSSIBLE LEFT ATRIAL ENLARGEMENT RIGHT AXIS NONSPECIFIC T WAVE ABNORMALITY ABNORMAL ECG NO PREVIOUS ECGS AVAILABLE Confirmed by GERARD MANUEL M.D. ([id number]) on 04/07/2024 1:19:49 PM Test Reason : Location : [facility] : [facility] Overread By : GERARD MANUEL M.D. Edited By : GERARD MANUEL M.D. Referred By : , Acquired by : , [facility] CBC panel Auto (Bld)on 04-06 Erythrocyte distribution width (RBC) [Ratio] 11.9 % 11.5 - 15.0 % [facility] Hematocrit (Bld) [Volume fraction] 42.5 % 36.0 - 46.0 % [facility] Hemoglobin (Bld) [Mass/Vol] 14.5 g/dL 11.5 - 15.5 g/dL [facility] Interpretation and review of laboratory results Abnormal [facility] MCH (RBC) [Entitic mass] 29.5 pg 26.0 - 34.0 pg [facility] MCHC (RBC) [Mass/Vol] 34.1 g/dL 30.5 - 36.0 g/dL [facility] MCV (RBC) [Entitic vol] 86.4 fL 80.0 - 100.0 fL [facility] Nucleated RBC (Bld) [#/Vol] NINF [facility] Platelet mean volume (Bld) [Entitic vol] 9.9 fL 9.0 - 12.7 fL [facility] Platelets (Bld) [#/Vol] 412 10*3/uL High [facility] RBC (Bld) [#/Vol] 4.92 10*6/uL 3.90 - 5.2 0 m/uL [facility] WBC (Bld) [#/Vol] 9.19 10*3/uL [facility] Comprehensive metabolic 2000 panelon 04-06-2024 Albumin [Mass/Vol] 5.2 g/dL High 3.9 - 4.9 g/dL [facility] ALP [Catalytic activity/Vol] 70 U/L 34 - 123 U/L [facility] ALT [Catalytic activity/Vol] 12 U/L 7 - 38 U/L [facility] Anion gap [Moles/Vol] 13 mmol/L 8 - 15 mmol/L [facility] AST [Catalytic activity/Vol] 18 U/L 13 - 35 U/L [facility] Bilirubin [Mass/Vol] 0.5 mg/dL 0.2 - 1 .3 mg/dL [facility] Calcium [Mass/Vol] 10.3 mg/dL High 8.5 - 10. 2 mg/dL [facility] Chloride [Moles/Vol] 103 mmol/L 98 - 10 7 mmol/L [facility] CO2 [Moles/Vol] 25 mmol/L 22 - 30 mmol/L [facility] Creatinine [Mass/Vol] 0.93 mg/dL 0.58 - 0.96 mg/dL [facility] GFR/1.73 sq M.predicted among non-blacks MDRD (S/P/Bld) [Vol rate/Area] 90 mL/min/{1.73_m2} - PINF [facility] Comment on above: Estimated Glomerular Filtration Rate (eGFR) is calculated using the 2020 CKD-EPI creatinine equation. This equation utilizes serum creatinine, sex, and age as parameters. The creatinine assay has traceable calibration to isotope dilution-mass spectrometry. Refer to KDIGO guidelines for clinical interpretation. In patients with unstable renal function, e.g. those with acute kidney injury, the eGFR may not accurately reflect actual GFR. Glucose [Mass/Vol] 107 mg/dL High 74 - 99 mg/dL [facility] Comment on above: The [place] Diabete s Association (ADA) provides guidance for cutoff values [...] Standards of Medical Care in Diabetes 2016, [place] Diabetes Association. Diabetes Care. 2016.39(Suppl 1). Interpretation and review of laboratory results Abnormal [facility] Potassium [Moles/Vol] 4.4 mmol/L 3.7 - 5.1 mmol/L [facility] Protein [Mass/Vol] 7.7 g/dL 6.3 - 8.0 g/dL [facility] Sodium [Moles/Vol] 141 mmol/L 136 - 144 mmol/L [facility] Urea nitrogen [Mass/Vol] 16 mg/dL 7 - 21 mg/dL [facility] TSH W/REFLEX FT4on 4 Interpretation and review of laboratory results Abnormal [facility] TSH Qn 6.610 m[IU]/L High [facility] Comment on above: If the patient is pr egnant, TSH reference range varies by gestational period: First Trimester (weeks 9-12): 0.180-2.990 mIU/L Second Trimester: 0.110-3.980 mIU/L Third Trimester: 0.480-4.710 mIU/L Malcolm Molina et al. A Practical Approach for the Verifications and Determination of Site- and Trimester-Specific Reference Intervals for Thyroid Function tests in . Thyroid, 2019:29:3:412-420. Rubio Jade, et al. 2017 Guidelines of the [place] Thyroid Association for the Diagnosis and Management of Thyroid Disease during and the . Thyroid, 2017:27:3:315-389. [facility] CBC panel Auto (Bld)on 04-05 Erythrocyte distribution width (RBC) [Ratio] 11.9 % Normal 11.5-15.0 [facility] Comment on above: Order Comment: Nahed pruitt Type: BLOOD SPECIMENOrdering Facility: [facility] Address: [address] [place] [address] Performed By: #### 5 8410-2 ####[facility] LABCLIA [id number] [address] [place] Hematocrit (Bld) [Volume fraction] 42.5 % Normal 36.0-46.0 [facility] Comment on above: Order Comment: Nahed pruitt Type: BLOOD SPECIMENOrdering Facility: [facility] Address: [address] [place] [address] Performed By: #### 5 8410-2 ####[facility] LABCLIA [id number] [place] [address] [place] Hemoglobin (Bld) [Mass/Vol] 14.5 g/dL Normal 11.5-15.5 [facility] Comment on above: Order Comment: Nahed pruitt Type: BLOOD SPECIMENOrdering Facility: [facility] Address: [address] [place] [address] Performed By: #### 5 8410-2 ####[facility] LABCLIA [id number] [place] [address] [place] MCH (RBC) [Entitic mass] 29.5 pg Normal 26.0-34.0 [facility] Comment on above: Order Comment: Speci men Type: BLOOD SPECIMENOrdering Facility: [facility] Address: [address] [place] [address] Performed By: #### 5 8410-2 ####[facility] LABIA [id number] [place] [address] [place] MCHC (RBC) [Mass/Vol] 34.1 g/dL Normal 30.5-36.0 [facility] Comment on above: Order Comment: Speci men Type: BLOOD SPECIMENOrdering Facility: [facility] Address: [address] [place], [place] [address] Performed By: #### 5 8410-2 ####[facility] LABIA [id number] [place] [address] [place] MCV (RBC) [Entitic vol] 86.4 fL Normal 80.0-100.0 [facility] Comment on above: Order Comment: Speci men Type: BLOOD SPECIMENOrdering Facility: [facility] Address: [address] [place] [address] Performed By: #### 5 8410-2 ####[facility] LABIA [id number] [place] [address] [place] Nucleated RBC (Bld) [#/Vol] 10*3/uL Normal <0.01 [facility] Comment on above: Order Comment: Speci men Type: BLOOD SPECIMENOrdering Facility: [facility] Address: [address] [place] [address] Performed By: #### 5 8410-2 ####[facility] LABIA [id number] [place] [address] [place] Platelet mean volume (Bld) [Entitic vol] 9.9 fL Normal 9.0-12.7 [facility] Comment on above: Order Comment: Speci men Type: BLOOD SPECIMENOrdering Facility: [facility] Address: [address] [place] [address] Performed By: #### 5 8410-2 ####[facility] LABIA [id number] [place] [address] [place] Platelets (Bld) [#/Vol] 412 10*3/uL High 150-400 [facility] Comment on above: Order Comment: Speci men Type: BLOOD SPECIMENOrdering Facility: [facility] Address: [address] [place] [address] Performed By: #### 5 8410-2 ####[facility] [id number] [place] [address] [place] RBC (Bld) [#/Vol] 4.92 10*6/uL Normal 3.90-5.20 [facility] Comment on above: Order Comment: Speci men Type: BLOOD SPECIMENOrdering Facility: [facility] Address: [address] [place] [address] Performed By: #### 5 8410-2 ####[facility] [id number] [place] [address] [place] WBC (Bld) [#/Vol] 9.19 10*3/uL Normal 3.70-11.00 [facility] Comment on above: Order Comment: Speci men Type: BLOOD SPECIMENOrdering Facility: [facility] Address: [address] [place] [address] Performed By: #### 5 8410-2 ####[facility] [id number] [place] [id number] [place] CNOVon 04-05-2024 CNOV Office Visit (FMIUNI ) -------- TRAVON [id number]) 1 F Date Time Provider Department 04/05/24 2:00 PM ANTIONETTE BENITEZ FMIUNI During your visit today, we recorded the following information about you: Temperature Pulse Blood pressure Weight 98.1 degrees 98/minute 122/80 63.4 kg Height Last Period 1.753 m 03/18/24 Antionette Benitez DO 05/24/2024 9:14 PM Signed ASSESSMENT/PLAN: 1. Palpitations - ICD9: 785.1, ICD10: R00.2 (primary diagnosis) -She is concern for frequent palpitations, lightheadedness. Obtained ECG which appears to be normal. Will obtain Holter monitor, labs. Recommended follow-up in 4 weeks. - ECG COMPLETE - COMPLETE BLOOD COUNT - COMPREHENSIVE METABOLIC PANEL - TSH W/REFLEX FT4 - HOLTER MONITOR 48 HOUR 2. Borderline personality disorder (HCC) - ICD9: 301.83, ICD10: F60.3 -Following with psychiatry. Continue current medications. CC: Patient presents with: Establish Care: Discuss high blood pressure HPI: Travon is a 18 year old female that presents with discuss high blood pressure. Anxiety- takes abilify 5 mg once daily for anxiety/BPD. She says that she started having tremors/shaking over the last month; she has also had dry mouth. She says her hands and feet get hot, blurred vision. ROS: See HPI History: Medical history, surgical history, social history and allergies were reviewed and updated in the system. PHYSICAL EXAM: BP 148/100 Pulse 98 Temp 98.1 Ht 5' 9 (1.75m) Wt 139 lb 12.4 oz (63.4kg) SpO2 97% LMP 03/18/2024 BMI 20.63 kg/(m2). General Appearance: Well appearing, alert, in no acute distress, well-hydrated, well nourished.. Lungs: Lungs clear to auscultation. No wheezing, rhonchi, rales.. Heart: RRR without murmur, gallop, or rubs. No ectopy. Abdomen: Normal abdominal exam, Abdomen soft, non-tender. Bowel sounds normal. No masses, organomegaly. Neurologic: Gait normal. Reflexes normal and symmetric. Sensation grossly intact.. Dr. Antionette Benitez, DO Allergies As of Date: 04/05/2024 Noted Allergy Reaction CIPROFLOXACIN 04/05/2024 14 - Other: See Comments Comments: Heart palp, hard time breathing, shaking Date Reviewed: Never Reviewed Reason for Visit: Establish Care [42] Cmt: Discuss high blood pressure Primary Visit Diagnosis:Palpitations [R00.2] Other Visit Diagnosis:Borderline personality disorder (HCC) [F60.3] Order(s):ECG COMPLETE [ECG01] Order #: [id number] FUTURE COMPLETE BLOOD COUNT [SQCBC] Order #: [id number] FUTURE COMPREHENSIVE METABOLIC PANEL [SQCMP] Order #: [id number] FUTURE TSH W/REFLEX FT4 [SQTSHRF] Order #: [id number] FUTURE HOLTER MONITOR 48 HOUR [[id number]] Order #: [id number] FUTURE ECG COMPLETE [ECG01] Order #: [id number]. #:[id number] ECG COMPLETE [ECG01] Order #: [id number]. #:[id number]--[id number] Prescriptions as of 05/24/2024 - levothyroxine (SYNTHROID) 25 mcg tablet Take 1 tablet by mouth once daily. - naproxen (NAPROSYN) 500 mg tablet Take 1 tablet by mouth once daily as needed (Headache). - hydrOXYzine HCl (ATARAX) 25 mg tablet Take 25 mg by mouth two times a day as needed. - FLUoxetine (PROZAC) 10 mg capsule Take 1 capsule by mouth every afternoon. - mometasone (ELOCON) 0.1 % cream Apply 1 Application to affected area. Problem List As Of Date 04/05/2024 Noted Resolved Anxiety [F41.9] 02/26/2016 Borderline personality disorder (HCC) [F60.3] 04/05/2024 Medications Discontinued During This Encounter Prescriptions - ARIPiprazole (ABILIFY) 2 mg tablet (Discontinued) Take 4 mg by mouth once daily. Encounter Status:Closed by ANTIONETTE BENITEZ on 05/24/24 [facility] Vito 04-05-2024 [facility] Telephone (FMIUNI) -------- TRAVON STALLWORTH ([id number]) 1 F Date Time Provider Department 04/05/24 ANTIONETTE BENITEZ FMIUNI During your visit today, we recorded the following information about you: Vanda Fritz 04/05/2024 3:49 PM Signed Jen at [facility] [address] office Needing to bee set up with a 48 hour Holter Monitor Please call the patient at the home number confirmed by the office Benjy Adhikari 04/08/2024 9:31 AM Signed Called and scheduled [...] (HCC) [F60.3] 04/05/2024 Encounter Status:Closed by BENJY ADHIKARI on 04/08/24 Normal [facility] Comprehensive metabolic 2000 panelon 04-05-2024 Albumin [Mass/Vol] 5.2 g/dL High 3.9-4.9 [facility] Comment on above: Order Comment: Speci men Type: BLOOD SPECIMENOrdering Facility: [facility] Address: [address] [place] [address] [place] [address] Performed By: #### 2 4323-8, 3024-7, TSHRF ####[facility] LABCLIA [id number] [place] [id number] [place] ALP [Catalytic activity/Vol] 70 U/L Normal 34-123 [facility] Comment on above: Order Comment: Speci men Type: BLOOD SPECIMENOrdering Facility: [facility] Address: [address] [place] [address] Performed By: #### 2 4323-8, 7, TSHRF ####[facility] LABCLIA [id number] [place] [id number] [place] ALT [Catalytic activity/Vol] 12 U/L Normal 7-38 [facility] Comment on above: Order Comment: Speci men Type: BLOOD SPECIMENOrdering Facility: [facility] Address: [address] [place] [address] Performed By: #### 2 4323-8, 7, TSHRF ####[facility] LABIA [id number] [place] [id number] [place] Anion gap [Moles/Vol] 13 mmol/L Normal 8-15 [facility] Comment on above: Order Comment: Speci men Type: BLOOD SPECIMENOrdering Facility: [facility] Address: [address] [place] [address] Performed By: #### 2 4323-8, 7, TSHRF ####[facility] LABIA [id number] [place] [id number] [place] AST [Catalytic activity/Vol] 18 U/L Normal 13-35 [facility] Comment on above: Order Comment: Speci men Type: BLOOD SPECIMENOrdering Facility: [facility] Address: [address] [place] [address] Performed By: #### 2 4323-8, 3024-7, TSHRF ####[facility] LABIA [id number] [place] [address] [place] Bilirubin [Mass/Vol] 0.5 mg/dL Normal 0.2-1.3 [facility] Comment on above: Order Comment: Speci men Type: BLOOD SPECIMENOrdering Facility: [facility] Address: [address] [place] [address] Performed By: #### 2 4323-8, 302-7, TSHRF ####[facility] LABCLIA [id number] [place] [address] [place] Calcium [Mass/Vol] 10.3 mg/dL High 8.5-10.2 [facility] Comment on above: Order Comment: Speci men Type: BLOOD SPECIMENOrdering Facility: [facility] Address: [address] [place] [address] Performed By: #### 2 4323-8, 3023-7, TSHRF ####[facility] LABCLIA [id number] [place] [address] [place] Chloride [Moles/Vol] 103 mmol/L Normal 98-107 [facility] Comment on above: Order Comment: Speci men Type: BLOOD SPECIMENOrdering Facility: [facility] Address: [address] [place] [address] Performed By: #### 2 4323-8, 3023-7, TSHRF ####[facility] LABCLIA [id number] [place] [address] [place] CO2 [Moles/Vol] 25 mmol/L Normal 22-30 [facility] Comment on above: Order Comment: Speci men Type: BLOOD SPECIMENOrdering Facility: [facility] Address: [address] [place] [address] Performed By: #### 2 4323-8, 3023-7, TSHRF ####[facility] LABCLIA [id number] [place] [address] [place] Creatinine [Mass/Vol] 0.93 mg/dL Normal 0.58-0.96 [facility] Comment on above: Order Comment: Nahed pruitt Type: BLOOD SPECIMENOrdering Facility: [facility] Address: [address] [place] [address] Performed By: #### 2 4323-8, 3024-7, TSH ####[facility] LABCLIA [id number] [place] [address] [place] Creatinine and Glomerular filtration rate.predicted panel (S/P/Bld) 90 mL/min/1.73m??? Normal >=60 [facility] Comment on above: Order Comment: Nahed pruitt Type: BLOOD SPECIMENOrdering Facility: [facility] Address: [address] [place] [address] Result Comment: Faustina mated Glomerular Filtration Rate [...] accurately reflect actual GFR. Performed By: #### 2 4323-8, 3024-7, [facility] ####[facility] LABCLIA [id number] [place] [id number] [place] Glucose [Mass/Vol] 107 mg/dL High 74-99 [facility] Comment on above: Order Comment: Nahed pruitt Type: BLOOD SPECIMENOrdering Facility: [facility] Address: [address] [place] [address] Result Comment: The [place] Diabetes Association (ADA) provides guidance for cutoff [...] Standards of Medical Care in Diabetes 2016, [place] Diabetes Association. Diabetes Care. 2016.39(Suppl 1). Performed By: #### 2 4323-8, 7, TSHRF ####[facility] LABCLIA [id number] [address] [address] [place] Potassium [Moles/Vol] 4.4 mmol/L Normal 3.7-5.1 [facility] Comment on above: Order Comment: Speci men Type: BLOOD SPECIMENOrdering Facility: [facility] Address: [address] [place] [address] Performed By: #### 2 4323-8, 7, TSHRF ####[facility] LABIA [id number] [place] [address] [place] Protein [Mass/Vol] 7.7 g/dL Normal 6.3-8.0 [facility] Comment on above: Order Comment: Speci men Type: BLOOD SPECIMENOrdering Facility: [facility] Address: [address] [place] [id number] Performed By: #### 2 4323-8, 7, TSHRF ####[facility] LABIA [id number] [place] [address] [place] Sodium [Moles/Vol] 141 mmol/L Normal 136-144 [facility] Comment on above: Order Comment: Speci men Type: BLOOD SPECIMENOrdering Facility: [facility] Address: [address] [place] [id number] Performed By: #### 2 4323-8, 7, TSHRF ####[facility] LABCLIA [id number] [place] [address] [place] Urea nitrogen [Mass/Vol] 16 mg/dL Normal 7-21 [facility] Comment on above: Order Comment: Speci men Type: BLOOD SPECIMENOrdering Facility: [facility] Address: [address] [place] [address] Performed By: #### 2 4323-8, 3024-7, TSHRF ####[facility] LABIA [id number] [place] [address] [place] [id number] 04-05-2024 ECG01 Ventricular Rate : 8 7 BPM Atrial Rate : 87 BPM P-R Interval : 128 ms QRS Duration : 82 ms Q-T Interval : 340 ms QTC Calculation(Bazett) : 409 ms Calculated P Benton : 66 degrees Calculated R Benton : 95 degrees Calculated T Benton : 9 degrees NORMAL SINUS RHYTHM POSSIBLE LEFT ATRIAL ENLARGEMENT RIGHT AXIS NONSPECIFIC T WAVE ABNORMALITY ABNORMAL ECG NO PREVIOUS ECGS AVAILABLE Confirmed by GERARD MANUEL M.D. ([id number]) on 04/07/2024 1:19:49 PM NAME : TRAVON STALLWORTH PID : [id number] : 2005 Gender : Female Race : ORD : Procedure Date : Apr 05 2024 16:17:37 Edit Date : Apr 07 2024 13:19:50 Diagnosis: NORMAL SINUS RHYTHM POSSIBLE LEFT ATRIAL ENLARGEMENT RIGHT AXIS NONSPECIFIC T WAVE ABNORMALITY ABNORMAL ECG NO PREVIOUS ECGS AVAILABLE Confirmed by GERARD MANUEL M.D. ([id number]) on 04/07/2024 1:19:49 PM Test Reason : Location : [address] [place] [address] Overread By : GERARD MANUEL M.D. Edited By : GERARD MANUEL M.D. Referred By : , Acquired by : , Normal [facility] T4 Free SerPl-ncon 024 Free T4 [Mass/Vol] 1.5 ng/dL Normal 0.9-1.7 [facility] Comment on above: Order Comment: Speci men Type: BLOOD SPECIMENOrdering Facility: [facility] Address: [address] [place] [address] Performed By: #### 2 4323-8, 3024-7, TSHRF ####[facility] LABCLIA [id number] [place] [address] [place] TSH W/REFLEX FT4on 12-13-202 4 TSH Qn 6.610 m[IU]/L High 0.510-4.300 [facility] Comment on above: Order Comment: Speci men Type: BLOOD SPECIMENOrdering Facility: [facility] Address: [address] [place] [address] Result Comment: If t he patient is , TSH reference range varies by gestational period: First Trimester (weeks 9-12): 0.180-2.990 mIU/L Second Trimester: 0.110-3.980 mIU/L Third Trimester: 0.480-4.710 mIU/L Malcolm Molina et al. A Practical Approach for the Verifications and Determination of Site- and Trimester-Specific Reference Intervals for Thyroid Function tests in . Thyroid, 2019:29:3:412-420. Rubio Jade, et al. 2017 Guidelines of the [place] Thyroid Association for the Diagnosis and Management of Thyroid Disease during and the . Thyroid, 2017:27:3:315-389. Performed By: #### 2 4323-8, 3024-7, TSHRF ####[facility] LABCLIA [id number] [place] [address] [place] COMPLETE URINALYSISon 2023 BACTERIA (#/HPF) IN URINE Few Abnormal Negative [facility] Comment on above: Performed By: #### L [id number] #### Soda Tester: DUGLAS CASTILLO ([id number]) [facility] ([facility]) [address] [place] [address] BILIRUBIN, TOTAL PRESENCE IN URINE Negative Normal Negative [facility] Comment on above: Performed By: #### L AB347 #### Soda Tester: DUGLAS CASTILLO ([id number]) [facility] ([facility]) [address] [place] [address] Clarity (U) Turbid Abnormal Clear [facility] Comment on above: Performed By: #### L [id number] #### Soda Tester: DUGLAS CASTILLO ([id number]) [facility] ([facility]) [address] [place] [address] [place] Color (U) Light Yellow Normal Lt. Yellow [facility] Comment on above: Performed By: #### L [id number] #### Soda Tester: DUGLAS CASTILLO ([phone]) [facility] ([facility]) [address] [place] [address] GLUCOSE (MG/DL) IN URINE Normal Normal Normal (<70) [facility] Comment on above: Performed By: #### L [id number] #### Soda Tester: DUGLAS CASTILLO ([phone]) [facility] ([facility]) [address] [place] [address] HEMOGLOBIN PRESENCE IN URINE 1.0 mg/dL Abnormal Negative [facility] Comment on above: Performed By: #### L [id number] #### Soda Tester: DUGLAS CASTILLO ([id number]) [facility] ([facility]) [address] [place] [address] HYALINE CASTS (#/LPF) IN URINE SEDIMENT BY MICROSCOPY Negative Normal Negative [facility] Comment on above: Performed By: #### L [id number] #### Soda Tester: DUGLAS CASTILLO ([id number]) [facility] ([facility]) [address] [place] [address] Ketones Ql (U) Negative Normal Negative [facility] Comment on above: Performed By: #### L [id number] #### Soda Tester: DUGLAS CASTILLO ([phone]) [facility] ([facility]) [address] [place] [address] LEUKOCYTE ESTERASE PRESENCE IN URINE BY TEST STRIP 500 Gustavo/uL Abnormal Negative [facility] Comment on above: Performed By: #### L [id number] #### Soda Tester: DUGLAS CASTILLO ([id number]) [facility] ([facility]) [address] [place] [address] NITRITE PRESENCE IN URINE Negative Normal Negative [facility] Comment on above: Performed By: #### L [id number] #### Soda Tester: DUGLAS CASTILLO ([phone]) [facility] ([facility]) [address] [place] [address] pH (U) 7.0 [pH] Normal 5.0-8.0 [facility] Comment on above: Performed By: #### L [id number] #### Soda Tester: DUGLAS CASTILLO ([id number]) [facility] ([facility]) [address] [place] [address] Protein (U) [Mass/Vol] 10 mg/dL Abnormal Negative [facility] Comment on above: Performed By: #### L [id number] #### Soda Tester: DUGLAS CASTILLO ([phone]) [facility] ([facility]) [address] [place] [address] [place] RBC (#/HPF) IN URINE SEDIMENT 11-25 Abnormal 0-2 [facility] Comment on above: Performed By: #### L [id number] #### Soda Tester: DUGLAS CASTILLO ([id number]) [facility]) [address] [place] [address] Specific gravity (U) [Rel density] 1.005 Normal 1.005-1.030 [facility] Comment on above: Performed By: #### L [id number] #### Soda Tester: DUGLAS CASTILLO ([id number]) [facility] ([facility]) [address] [place] [address] SQUAMOUS EPITHELIAL CELLS (#/HPF) IN URINE SEDIMENT 0-2 Normal 3-5 [facility] Comment on above: Performed By: #### L [id number] #### Soda Tester: DUGLAS CASTILLO ([id number]) [facility] ([facility]) [address] [place] [address] UROBILINOGEN (MG/DL) IN URINE Normal Normal Normal (0-1) [facility] Comment on above: Performed By: #### L [id number] #### Soda Tester: DUGLAS CASTILLO ([id number]) [facility] ([facility]) [address] [place] [address] WBC (LEUKOCYTE) (#/HPF) IN URINE SEDIMENT >100 Abnormal 0-5 [facility] Comment on above: Performed By: #### L [id number] #### Soda Tester: DUGLAS CASTILLO ([phone]) [facility] ([facility]) [address] [place] [address] [place] WBC (LEUKOCYTE) CLUMPS (#/HPF) IN URINE SEDIMENT Few Abnormal Negative [facility] Comment on above: Performed By: #### L [id number] #### Soda Tester: DUGLAS CASTILLO ([id number]) [facility] ([facility]) [address] ED Provider Noteon ED Provider Note Emergency Department Encounter [facility] EMERGENCY DEPT Patient: Travon Stallworth : 2005 [...] [employer] Roney Issa DO 03/17/24 0649 [facility] ED Provider Note EMERGENCY DEPARTMENT ENCOUNTER Pt Name: Travon Stallworth Birthdate 2005 Date of evaluation: 03/16/2024 ED Provider: LEEROY GARAY DO CHIEF COMPLAINT Chief Complaint Patient presents [...] 94% We (more content not included)... Normal [facility] HCG QUALITATIVE URINEon 02-23 Beta HCG ( test) Ql (U) Negative Normal Negative [facility] Comment on above: Result Comment: Pedro lehman note: Very dilute urine specimens, as indicated by a low specific gravity, may not contain statement services representative levels of hCG. If is still suspected, a first morning urine specimen should be collected 48 hours later and tested. ORDER COMMENTS: is the most common reason for HCG in urine, although choriocarcinoma, hydatidiform mole, and certain nontrophoblastic malignancies also result in detectable urinary HCG levels. Sensitivity = 20mIU/mL. Performed By: #### L [id number] #### Soda Tester: DUGLAS CASTILLO ([phone]) [facility] [address] [place] [address] Laboratory - Chemistry and C hemistry - challengeOrdered By: Maria Guadalupe Serna on 03-16-2024 Beta HCG ( test) Ql Negative Negative Comment on above: Please note: Very di lute urine specimens, as indicated by a low specific gravity, may not contain statement services representative levels of hCG. If is still suspected, a first morning urine specimen should be collected 48 hours later and tested. Beta HCG ( test) Ql (U) is the most common reason for HCG in urine, although choriocarcinoma, hydatidiform mole, and certain nontrophoblastic malignancies also result in detectable urinary HCG levels. Sensitivity = 20mIU/mL. No Panel InformationOrdered By: Maria Guadalupe Serna on 03-16-2024 Urinalysis complete panel (U )Ordered By: López Pena on 03-16-2024 Bacteria LM.HPF (Urine sed) [#/Area] Few Abnormal Negative /HPF Bilirubin Ql (U) Negative Negative mg/dL Clarity (U) Turbid Abnormal Clear [facility] Color (U) Light Yellow Lt. Yellow Epithelial cells.squamous LM.HPF (Urine sed) [#/Area] 0-2 [facility] Glucose Ql (U) Normal Normal (<70) mg/dL Hemoglobin Ql (U) 1.0 mg/dL Abnormal Negative [facility]alth Hyaline casts Auto (Urine sed) [#/Area] Negative Negative /LPF Interpretation and review of laboratory results Abnormal Ketones (U) [Mass/Vol] Negative Negat payton mg/dL Leukocyte clumps LM.HPF (Urine sed) [#/Area] Few Abnormal Negative /HPF Leukocyte esterase Test strip Ql (U) 500 Abnormal Negative Gustavo/uL Nitrite Ql (U) Negative Negative [facility] th pH (U) 7.0 [pH] 5.0 - 8.0 pH Protein (U) [Mass/Vol] 10 mg/dL Abnormal Negative [facility] RBC LM.HPF (Urine sed) [#/Area] 11-25 Abnormal Specific gravity (U) [Rel density] 1.005 1.005 - 1.030 Urobilinogen (U) [Mass/Vol] Normal Normal (0-1) mg/dL WBC LM.HPF (Urine sed) [#/Area] /[HPF] Abnormal [facility] BLD HCG (QUAL)on 02-07-2024 BLD HCG (QUAL) Negative Normal (NEG) [facility] Comment on above: Order Comment: STAT FACILITY: [facility] [id number] Performed By: #### P REG #### [facility] [address] [facility], [address] CHLAMYDIA/GC BY PCRon 2023 CHLAMYDIA/GC BY PCR [...] are dependent on adequate specimen collection. Normal [facility] Comment on above: Performed By: #### C GS #### [facility] ([id number]) [address] [place] [address], [address] [place] [address] Cytologyon 02-07-2024 Cytology Normal [facility] Comment on above: Result Comment: [facility] [address] [place] [address] Gynecologic Cytology Consultation Patient Name:TRAVON STALLWORTH:2005 (Age: 18)Gender:FTaken:4Reported:02/27/2024hysician(s):Julius Castro M.D. ([phone])Copy To: Rec. #:[id number]: #[id number] Final Cytologic Interpretation ThinPrep Pap Test (Cervical/Endocervical): Satisfactory for evaluation. A transformation zone component is present. NEGATIVE FOR INTRAEPITHELIAL LESION OR MALIGNANCY. az/02/27/2024 Interpretation performed at [facility], [address] [place] [address], License number: [id number]. 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 The Pap test is primarily effective for the diagnosis and prevention of squamous cell carcinoma. Regular screening is critical for prevention. ThinPrep liquid-based slides, which meet the Do All Operator criteria for automated screening, have been screened by the ThinPrep Imaging System (as of 01/08/07) along with an additional manual rescreening by a venereal disease investigator and, if indicated, by a pathologist. VAGINITIS [...] clinical presentation to determine patient diagnosis. Normal [facility] Comment on above: Performed By: #### V PPCR #### [facility] ([id number]) [address] [place] [address], [address] [place] [address] THYROID PROFILEon 11-30-2023 Free T4 [Mass/Vol] 1.20 ng/dL Normal 0.61-1.60 [facility] Comment on above: Performed By: #### T HYR #### [facility] ([id number]) [address] [place] [address], [address] [place] [address] TSH 2.47 uIU/mL Normal 0.49-4.[address] [facility] Comment on above: Performed By: #### T HYR #### [facility] ([id number]) [address] [facility], [address] [place] [address] GLUCOSE,FASTINGon 12-18-2021 Glucose [Mass/Vol] 87 mg/dL Normal 74 - 99 [facility] Comment on above: Result Comment: INCR EASED RISK FOR DIABETES 100-125 mg/dL DIAGNOSTIC OF DIABETES >=126 mg/dL Diagnosis of diabetes mellitus requires confirmation of an abnormal result by repeat testing. [employer], Diabetes Care; 33(Supp 1), Apr 2009. Performed By: #### G LUCF #### [facility] [address] [place] [address] LIPID PANEL (CORONARY RISK 2 )on 12-18-2021 Cholesterol [Mass/Vol] 115 mg/dL Normal 0 - 199 [facility] Comment on above: Result Comment: . AGE [...] dosing. Performed By: #### L IPID #### [facility] [address] [place] [address] Cholesterol in HDL [Mass/Vol] 50.4 mg/dL Normal [facility] Comment on above: Result Comment: . AGE VERY LOW LOW NORMAL HIGH 0-19 Y < 35 < 40 40-45 ---- 20-24 Y ---- < 40 >45 ---- >24 Y ---- < 40 40-60 >60 . Performed By: #### L IPID #### [facility] [address] [place] [address] Cholesterol in LDL [Mass/Vol] 58 mg/dL Normal 0 - 109 [facility] Comment on above: Result Comment: . NEAR BORD AGE DESIRABLE OPTIMAL HIGH HIGH VERY HIGH 0-19 Y 0 - 109 --- 110-129 >/= 130 ---- 20-24 Y 0 - 119 --- 120-159 >/= 160 ---- >24 Y 0 - 99 100-129 130-159 160-189 >/=190 . Performed By: #### L IPID #### [facility] [address] [place] [address] Cholesterol in VLDL [Mass/Vol] 6 mg/dL Normal 0 - 40 [facility] Comment on above: Performed By: #### L IPID #### [facility] [address] [place] [address] Cholesterol.total/Chol esterol in HDL [Mass ratio] 2.3 {ratio} Normal [facility] Comment on above: Result Comment: REF VALUES DESIRABLE < 3.4 HIGH RISK > 5.0 Performed By: #### L IPID #### [facility] [address] [place] [address] NON-HDL CHOLESTEROL 65 mg/dL Normal 0 - 119 [facility] Comment on above: Result Comment: AGE DESIRABLE BORDERLINE HIGH HIGH VERY HIGH 0-19 Y 0 - 119 120 - 144 >/= 145 >/= 160 20-24 Y 0 - 149 150 - 189 >/= 190 ---- >24 Y 30 MG/DL ABOVE LDL CHOLESTEROL GOAL . Performed By: #### L IPID #### [facility] [address] [place] [address] Triglyceride [Mass/Vol] 32 mg/dL Normal 0 - 149 [facility] Comment on above: Result Comment: . AGE [...] dosing. Performed By: #### L IPID #### [facility] [address] [place] [address] VITAMIN D, 25-HYDROXYon 11-23 VITAMIN D, 25-HYDROXY 35 ng/mL Normal [facility] Comment on above: Result Comment: . DEFICIENCY: < 20 NG/ML INSUFFICIENCY: 20-29 NG/ML SUFFICIENCY: 30-100 NG/ML THIS ASSAY ACCURATELY QUANTIFIES THE SUM OF VITAMIN D3, 25-HYDROXY AND VIT D2,25-HYDROXY. Performed By: #### V TDOH #### [facility] [address] [place] [address] ACUTE TOXICOLOGY PANEL, BLOO Don 12-17-2021 Acetaminophen [Mass/Vol] ug/mL Normal 10.0 - 30.0 [facility] Comment on above: Performed By: #### D RUBL ####[address] [address] Ethanol [Mass/Vol] mg/dL Normal [place] [facility] Comment on above: Result Comment: FOR MEDICAL USE ONLY. . REF VALUES <10 Performed By: #### D RUBL ####[address] [address] SALICYLATE <3 Normal 4 - 20 [facility] Comment on above: Performed By: #### D RUBL ####[address] [address] CBC AND DIFFERENTIALon 12-17 % AUTOMATED IMMATURE GRAN 0.2 % Normal 0.0 - 0.9 [facility] Comment on above: Result Comment: Maggi ture Granulocyte Count (IG) includes promyelocytes, myelocytes and metamyelocytes but does not include bands. Percent differential counts (%) should be interpreted in the context of the absolute cell counts (cells/L). Performed By: #### C BCDF #### [address] [address] Basophils (Bld) [#/Vol] 0.09 10*3/uL Normal 0.00 - 0.10 [facility] Comment on above: Performed By: #### C BCDF #### [address] [address] Basophils/100 WBC (Bld) 1.1 % Normal 0.0 - 2.0 [facility] Comment on above: Performed By: #### C BCDF #### [address] [address] Eosinophils (Bld) [#/Vol] 0.38 10*3/uL Normal 0.00 - 0.70 [facility] Comment on above: Performed By: #### C BCDF #### [address] [address] Eosinophils/100 WBC (Bld) 4.7 % Normal 0.0 - 6.0 [facility] Comment on above: Performed By: #### C BCDF #### [address] [address] Erythrocyte distribution width (RBC) [Ratio] 11.8 % Normal 11.5 - 14.5 [facility] Comment on above: Performed By: #### C BCDF #### [address] [address] Hematocrit (Bld) [Volume fraction] 35.1 % Low 36.0 - 46.0 [facility] Comment on above: Performed By: #### C BCDF #### [address] [address] Hemoglobin (Bld) [Mass/Vol] 12.1 g/dL Normal 12.0 - 16.0 [facility] Comment on above: Performed By: #### C BCDF #### [address] [address] Lymphocytes (Bld) [#/Vol] 1.72 10*3/uL Normal 1.20 - 4.80 [facility] Comment on above: Performed By: #### C BCDF #### [address] [address] Lymphocytes/100 WBC (Bld) 21.4 % Normal 13.0 - 44.0 [facility] Comment on above: Performed By: #### C BCDF #### [address] [address] MCHC (RBC) [Mass/Vol] 34.5 g/dL Normal 32.0 - 36.0 [facility] Comment on above: Performed By: #### C BCDF #### [address] [address] MCV (RBC) [Entitic vol] 83 fL Normal 80 - 100 [facility] Comment on above: Performed By: #### C BCDF #### [address] [address] Monocytes (Bld) [#/Vol] 0.54 10*3/uL Normal 0.10 - 1.00 [facility] Comment on above: Performed By: #### C BCDF #### [address] [address] Monocytes/100 WBC (Bld) 6.7 % Normal 2.0 - 10.0 [facility] Comment on above: Performed By: #### C BCDF #### [address] [address] Neutrophils (Bld) [#/Vol] 5.28 10*3/uL Normal 1.20 - 7.70 [facility] Comment on above: Performed By: #### C BCDF #### [address] [address] Neutrophils/100 WBC (Bld) 65.9 % Normal 40.0 - 80.0 [facility] Comment on above: Performed By: #### C BCDF #### [address] [address] Platelets (Bld) [#/Vol] 309 10*3/uL Normal 150 - 450 [facility] Comment on above: Performed By: #### C BCDF #### [address] [address] RBC 4.25 x10E12/L Normal 4.00 - 5.20 [facility]/P or [facility] Comment on above: Performed By: #### C BCDF #### [address] [address] WBC (Bld) [#/Vol] 8.0 10*3/uL Normal 4.4 - 11.3 [place] [facility] Comment on above: Performed By: #### C BCDF #### [place] [id number] COMPREHENSIVE PANELon 2021 Albumin [Mass/Vol] 4.4 g/dL Normal 3.4 - 5.0 [place] [facility] Comment on above: Performed By: #### C MP ####[place] [address] ALP [Catalytic activity/Vol] 61 U/L Normal 33 - 110 [facility] Comment on above: Performed By: #### C MP ####[place] [address] ALT [Catalytic activity/Vol] 8 U/L Normal 7 - 45 [facility]/Por [facility] Comment on above: Result Comment: Snow ents treated with Sulfasalazine may generate falsely decreased results for ALT. Performed By: #### C MP ####[place] [address] Anion gap [Moles/Vol] 12 mmol/L Normal 10 - 20 [facility] inson/Por [facility] Comment on above: Performed By: #### C MP ####[place] [address] AST [Catalytic activity/Vol] 13 U/L Normal 9 - 39 [facility] Comment on above: Performed By: #### C MP ####[place] [id number] Bilirubin [Mass/Vol] 0.3 mg/dL Normal 0.0 - 1.2 Janusz nson/Por [facility] Comment on above: Performed By: #### C MP ####[place] [address] Calcium [Mass/Vol] 9.1 mg/dL Normal 8.6 - 10.3 [place] [facility] Comment on above: Performed By: #### C MP ####[address] [address] Chloride [Moles/Vol] 107 mmol/L Normal 98 - 107 Janusz nson/Por [facility] Comment on above: Performed By: #### C MP ####[address] [address] Creatinine [Mass/Vol] 0.85 mg/dL Normal 0.50 - 1.05 Ro [facility]/Por [facility] Comment on above: Performed By: #### C MP ####[address] [address] eGFR FEMALE >90 Normal >90 [place]/Por [facility] Comment on above: Result Comment: CALC ULATIONS OF ESTIMATED GFR ARE PERFORMED USING THE 2020 CKD-EPI STUDY REFIT EQUATION WITHOUT THE RACE VARIABLE FOR THE IDMS-TRACEABLE CREATININE METHODS. https://jasn.asnjournals.org/content/early//ASN.71715 [address] Performed By: #### C MP ####[address] [address] Glucose [Mass/Vol] 94 mg/dL Normal 74 - 99 [place] [facility] Comment on above: Performed By: #### C MP ####[address] [address] HCO3 (Bld) [Moles/Vol] 24 mmol/L Normal 21 - 32 [facility]/Por [facility] Comment on above: Performed By: #### C MP ####[address] [address] Potassium [Moles/Vol] 3.7 mmol/L Normal 3.5 - 5.3 J[facility] inson/Por [facility] Comment on above: Performed By: #### C MP ####[address] [address] Protein [Mass/Vol] 6.8 g/dL Normal 6.4 - 8.2 [place] [facility] Comment on above: Performed By: #### C MP ####[place] [address] Sodium [Moles/Vol] 139 mmol/L Normal 136 - 145 [facility] Comment on above: Performed By: #### C MP ####[place] [address] Urea nitrogen [Mass/Vol] 9 mg/dL Normal 6 - 23 [facility] Comment on above: Performed By: #### C MP ####[place] [address] CORONAVIRUS 2019, SCREEN ASY MPTOMATICon 12-17-2021 SARS-CoV-2 (COVID-19) RNA FERMÍN+probe Ql (Unsp spec) Not detected Normal Not Detected [facility] Comment on above: Result Comment: . This test has received [facility] Emergency Use Authorization (EUA) and has been verified by [facility]. This test is only authorized for the duration of time that circumstances exist to justify the authorization of the emergency use of in vitro diagnostic tests for the detection of SARS-CoV-2 virus and/or diagnosis of COVID-19 infection under section 564(b)(1) of the Act, 21 U.S.C. 360bbb-3(b)(1), unless the authorization is terminated or revoked sooner. [facility] is certified under CLIA-88 as qualified to perform high complexity testing. Testing is performed in the [facility] laboratory located at [address] [place] [address]. SARS-CoV-2/Flu/RSV Multiplex Test: Fact sheet for providers: https://www.fda.gov/media/288406/download Fact sheet for patients: https://www.fda.gov/media/656792/download Performed By: #### C OVSC #### [place] [address] Lab Specimen Source Nasal, Nasopharyngeal Normal [facility] Comment on above: Performed By: #### C OVSC #### [facility] [address] [place] [address] Clinical Event Noteon 2021 Clinical Event Note Clinical Event: Clinical Event Note: Details Patient is currently medically cleared for psychiatric placement. She has been observed for the overdose per poison control recommendation. She otherwise has remained hemodynamically stable. Electronic Signatures: Kenji Rivera (DO) (Signed 17-Dec-2021 12:45) Authored: Clinical Event Note Last Updated: 17-Dec-2021 12:45 by Kenji Rivera (DO) Normal [place]/[facility] Covid 19 Resultson 2 SARS-CoV-2 (COVID-19) [...] You may also be contacted by the [facility] Emergency Department of Health to see if any of your close [...] or Naproxen (Aleve) can also be used. Lhof-cmu-rcqfxkq cough and cold medicines can be used according to the instructions on the package. Some zzrc-gxy-uamulry medicines also contain acetaminophen. Make sure you [...] water are not available, use alcohol-based hand emergency physician. Avoid touching your eyes, nose, and mouth [...] 24 fahad (more content not included)... Normal [facility] DRUG SCREEN,URINEon 12-18-19 22 AMPHETAMINE SCREEN,U Negative Normal NEGATIVE Janusz nson/[facility] Comment on above: Result Comment: CUTO FF LEVEL: 500 NG/ML Cross-reactivity has been reported with high concentrations of the following drugs: buproprion, chloroquine, chlorpromazine, ephedrine, mephentermine, fenfluramine, phentermine, phenylpropanolamine, pseudoephedrine, and propranolol. Performed By: #### D RUG3 #### [address] [address] BARBITURATES SCREEN,U Negative Normal NEGATIVE Jc ins/[facility] Comment on above: Result Comment: CUTO FF LEVEL: 200 NG/ML Performed By: #### D RUG3 #### [address] [address] BENZODIAZEPINES SCREEN,U Negative Normal NEGATIVE [facility] Comment on above: Result Comment: CUTO FF LEVEL: 200 NG/ML Performed By: #### D RUG3 #### [address] [address] CANNABINOIDS SCREEN,U Negative Normal NEGATIVE [facility] ins/[facility] Comment on above: Result Comment: CUTO FF LEVEL: 50 NG/ML Performed By: #### D RUG3 #### [address] [address] COCAINE METABOLITE SCREEN,U Negative Normal NEGATIVE [place]/Por [facility] Comment on above: Result Comment: CUTO FF LEVEL: 150 NG/ML Performed By: #### D RUG3 #### [address] [address] DRUG SCREEN COMMENT SEE BELOW Normal Jun son/Por [facility] Comment on above: Result Comment: Drug screen results are presumptive and should not be used to assess compliance with prescribed medication. Contact the performing [facility] laboratory to add-on definitive confirmatory testing if [...] directors. Performed By: #### D RUG3 #### [place] [address] FENTANYL SCREEN,URINE Negative Normal NEGATIVE Jc inson/Por [facility] Comment on above: Result Comment: CUTO FF LEVEL: 5 NG/ML Performed By: #### D RUG3 #### [place] [address] METHADONE SCREEN,U Negative Normal NEGATIVE [place]/Por [facility] Comment on above: Result Comment: CUTO FF LEVEL: 150 NG/ML The metabolite P-nmvog-niemikotzwczpw (LAAM) is not detected by this method in concentrations that would be found in the urine of patients on LAAM therapy. Performed By: #### D RUG3 #### [place] [address] OPIATES SCREEN,U Negative Normal NEGATIVE [place] /Por [facility] Comment on above: Result Comment: CUTO FF LEVEL: 300 NG/ML The opiate screen does not detect fentanyl, meperidine, or tramadol. Oxycodone is not consistently detected (refer to Oxycodone Screen, Urine result). Performed By: #### D RUG3 #### [place] [address] OXYCODONE SCREEN,U Negative Normal NEGATIVE [facility] above: Result Comment: CUTO FF LEVEL: 100 NG/ML This test will accurately detect both oxycodone and oxymorphone. Performed By: #### D RUG3 #### [place] [address] PCP SCREEN,U Negative Normal NEGATIVE [facility] Comment on above: Result Comment: CUTO FF LEVEL: 25 NG/ML Cross-reactivity has been reported with dextromethorphan. Performed By: #### D RUG3 #### [place] [address] EMR ADDONon 12-17-2021 ADDON CONFIRMATION REQUEST REC'D Normal [facility] Comment on above: Performed By: #### E MRAD #### [facility] [address] [place] [address] HCG,URINEon 12-17-2021 Beta HCG ( test) Ql (U) Negative Normal Negative [facility] Comment on above: Performed By: #### H CGU ####[place] [id number] MAGNESIUMon 12-17-2021 Magnesium [Mass/Vol] 1.85 mg/dL Normal 1.60 - 2.40 [facility] inson/[facility] Comment on above: Performed By: #### M G #### [place] [address] Provider Note - ED v3on 11-23 Provider [...] ventricular rate of 66, normal axis, normal [place] interval of 158 ms, normal QRS duration [...] for patient's progress and final disposition [facility] HISTORY OF PRESENTING ILLNESS TRAVON [...] Hg): 90 12-16-2021 22:36 PAST MEDICAL HISTORY ALLERGIES/INTOLERANCES: No Known Allergies HEALTH HISTORY: No documented data. OUTPATIENT MEDICATIONS: Home Medications Review Status for Reconciliation: N/A Med Status: N/A No documented data. SIGNIFICANT EVENTS: Past Medical History Description:Depression DISPOSITION Diagnosis/Annotation: ED Dx Name:Overdose Code:T50.901A Name:Laceration of right thigh, initial encounter Code:S71.111A Disposition: HANDOFF Signed out to Incoming Provider: Dr Abdalla CONSULT CRITICAL CARE TIME Is this a critically ill patient: no Electronic Signatures: Chris Luke () (Signed 17-Dec-2021 00:27) Authored: ED Notes, HPI, PMH, Clinical Impression, Attestation, Chart Review, Scores Last Updated: 17-Dec-2021 00:27 by Chris Luke () References: 1. Data Referenced From Triage - ED 16-Dec-2021 22:36 Normal [place]/Por [facility] Triage - EDon 12-17-2021 Triage - ED Quick Triage: Are You no Are You Currently Breastfeedingno The patient and/or guardian verbally acknowledges placement for services into the following (when Urgent Care Service hours are operating):emergency department Chart Review: ARRIVAL INFORMATION Mode of Arrival: ambulance Agency Name: [facility] CHIEF COMPLAINT TRAVON STALLWORTH is a Female patient with a chief complaint of (OD, took 30x 25mg hydroxyzine approx. 2145). Other Complaints: superficial cuts to right upper [...] BMI (kg/m2): 21.469 Calculated BSA (m2) 1.79 Fidencio Coma Scale: Best Eye Response: (E4) spontaneous Best Motor Response: (M6) obeys commands Best Verbal Response: (V5) oriented [place] Score: 15 Cough lasting greater than 3 [...] Medical History, Active Electronic Signatures: Denisse Nelson (ISAI) (Signed 16-Dec-2021 22:43) Entered: Risk Screens, Pain, Travel History, Chart Review, Past Medical History Authored: Quick Triage, Risk Screens, Pain, Travel History, Chart Review, Past Medical History Last Updated: 16-Dec-2021 22:43 by Denisse Nelson (ISAI) Normal [facility]/Por [facility] UA MICROSCOPICon 12-17-2021 BACTERIA 1+ /HPF Abnormal [facility] Comment on above: Performed By: #### U AMIC #### [place] [address] Mucus Ql (Urine sed) 4+ /LPF Normal Janusz ns/[facility] Comment on above: Performed By: #### U AMIC #### [place] [address] RBC 2 /HPF Normal 0-5 [facility] Comment on above: Performed By: #### U AMIC #### [address] [address] SQUAMOUS EPITH. CELLS 2 /HPF Normal Jc inson/[facility] Comment on above: Performed By: #### U AMIC #### [address] [address] WBC 11 /HPF Abnormal 0-5 [facility] Comment on above: Performed By: #### U AMIC #### [address] [address] URINALYSISon 12-17-2021 Appearance (U) Hazy Normal CLEAR [facility]/P or [facility] Comment on above: Performed By: #### U A #### [address] [address] Bilirubin Ql (U) Negative Normal NEGATIVE [facility] Comment on above: Performed By: #### U A #### [place] [address] Color (U) Yellow Normal STRAW,YELLOW [facility]/Por [facility] Comment on above: Performed By: #### U A #### [address] [address] Glucose Ql (U) Negative Normal NEGATIVE [facility]/ or [facility] Comment on above: Performed By: #### U A #### [address] [address] Hemoglobin Ql (U) Negative Normal NEGATIVE [place] [facility]/Por [facility] Comment on above: Performed By: #### U A #### [address] [address] Ketones Ql (U) Negative Normal NEGATIVE [facility]/ or [facility] Comment on above: Performed By: #### U A #### [address] [address] Leukocyte esterase Test strip Ql (U) Trace Abnormal NEGATIVE [facility] Comment on above: Performed By: #### U A #### [address] [address] Nitrite Ql (U) Negative Normal NEGATIVE [facility] or [facility] Comment on above: Performed By: #### U A #### [address] [address] pH (U) 5.0 [pH] Normal 5.0 - 8.0 [facility] Comment on above: Performed By: #### U A #### [address] [address] Protein Ql (U) Negative Normal NEGATIVE [facility]/ or [facility] Comment on above: Performed By: #### U A #### [address] [address] Specific gravity (U) [Rel density] 1.013 Normal 1.005 - 1.035 [facility] Comment on above: Performed By: #### U A #### [address] [address] Urobilinogen (U) [Mass/Vol] mg/dL Normal 0.0 - 1.9 [facility] Comment on above: Performed By: #### U A #### [facility] [address] [place] [address] URINE CULTURE,BACTERIALon URINE CULTURE,BACTERIAL PATIENT: TRAVON STALLWORTH LOCATION: CECILY THOMAS#: [id number] : [birth year] AGE: SEX: F ORDERED BY: CHRIS LKUE SOURCE: URINE COLLECTED: 12/16/21 22:57 ANTIBIOTICS AT [facility].: RECEIVED : 12/18/21 02:49 SITE: R E S U L T S URINE CULTURE,BACTERIAL FINAL 12/19/21 08:42 NO SIGNIFICANT GROWTH. Normal [facility] Comment on above: Performed By: #### U [facility] #### [facility] [address] [place] [address] CBC AUTO DIFFon 09-13-2018 Basophils (Bld) [#/Vol] 0.1 103/ul Normal 0.0-0.1 [facility] Comment on above: Performed By: #### C BC #### [facility] [address] [place], [place] [address] Silvia Jen Basophils/100 WBC (Bld) 1.1 % Normal 0.2-2.0 [facility] Comment on above: Performed By: #### C BC #### [facility] [address], [place] [address] Silvia Jen Eosinophils (Bld) [#/Vol] 0.2 103/ul Normal 0.0-0.7 [facility] Comment on above: Performed By: #### C BC #### [facility] [address], [place] [address] Silvia Jen Eosinophils/100 WBC (Bld) 2.6 % Normal 0.9-7.0 [facility] Comment on above: Performed By: #### C BC #### [facility] [address], [place] [address] Silvia Jen Erythrocyte distribution width (RBC) [Ratio] 12.9 % Normal 11.0-15.0 [facility] Comment on above: Performed By: #### C BC #### [facility] [address] [place] [id number] Silvia Jen Hematocrit (Bld) [Volume fraction] 43.7 % Normal 36.0-48.0 [facility] Comment on above: Performed By: #### C BC #### [facility] [address] [id number] Silvia Jen Hemoglobin (Bld) [Mass/Vol] 14.2 g/dL Normal 12.0-16.0 [facility] Comment on above: Performed By: #### C BC #### [facility] [address] [id number] Silvia Jen IG # 0.02 10e3/ul Normal 0.00-0.03 [facility] Comment on above: Performed By: #### C BC #### [facility] [address] [place] [address] Silvia Jen IG % 0.3 % Normal 0.0-0.5 [facility] Comment on above: Performed By: #### C BC #### [facility] [address] [place], [place] [id number] Silvia Jen Lymphocytes (Bld) [#/Vol] 2.0 103/ul Normal 1.2-3.8 [facility] Comment on above: Performed By: #### C BC #### [facility] [address] [place], [place] [id number] Silvia Jen Lymphocytes/100 WBC (Bld) 25.4 % Normal 20.5-60.0 [facility] Comment on above: Performed By: #### C BC #### [facility] [address] [place], [place] [id number] Silvia Jen MANUAL DIFF REQ NO Normal [facility] Comment on above: Performed By: #### C BC #### [facility] [address] [place], [place] [id number] Silvia Jen MCH (RBC) [Entitic mass] 28.0 pg Normal 26.7-34.0 [facility] Comment on above: Performed By: #### C BC #### [facility] [address], [place] [address] Silvia Jen MCHC (RBC) [Mass/Vol] 32.5 g/dL Normal 29.9-35.2 [facility] Comment on above: Performed By: #### C BC #### [facility] [address], [place] [address] Silvia Jen MCV (RBC) [Entitic vol] 86.0 fL Normal 79.1-95.6 [facility] Comment on above: Performed By: #### C BC #### [facility] [address] [place] [address] Silvia Jen Monocytes (Bld) [#/Vol] 0.5 103/ul Normal 0.3-0.8 [facility] Comment on above: Performed By: #### C BC #### [facility] [address] [place] [address] Silvia Jen Monocytes/100 WBC (Bld) 6.6 % Normal 1.7-12.0 [facility] Comment on above: Performed By: #### C BC #### [facility] [address] [place] [address] Silvia Jen Neutrophils (Bld) [#/Vol] 5.0 103/ul Normal 1.4-6.5 [facility] Comment on above: Performed By: #### C BC #### [facility] [address] [place] [address] Silvia Jen Neutrophils/100 WBC (Bld) 64.0 % Normal 43.0-75.0 [facility] Comment on above: Performed By: #### C BC #### [facility] [address] [place] [address] Silvia Jen Platelet mean volume (Bld) [Entitic vol] 9.6 fL Normal 9.5-13.5 [facility] Comment on above: Performed By: #### C BC #### [facility] [address] [place] [phone] Silvia Jen Platelets (Bld) [#/Vol] 332 103/ul Normal 150-450 [facility] Comment on above: Performed By: #### C BC #### [facility] [address] [place] [address] Silvia Li RBC (Bld) [#/Vol] 5.08 106/ul Normal 3.40-5.30 [facility] Comment on above: Performed By: #### C BC #### [facility] [address] [place] [address] Silviayvan Li WBC (Bld) [#/Vol] 7.8 103/ul Normal 4.0-11.0 [facility] Comment on above: Performed By: #### C BC #### [facility] [address] [place] [address] Silvia Li DRUG SCREEN RAPID (URINE)on 09-13-2018 AMP Negative Normal NEGATIVE [facility] Comment on above: Performed By: #### D RUGRPD #### [facility] [address] [place] [address] Silviayvan Li BAR Negative Normal NEGATIVE [facility] Comment on above: Performed By: #### D RUGRPD #### [facility] [address] [place] [address] Silvia Jen BUP Negative Normal NEGATIVE [facility] Comment on above: Performed By: #### D RUGRPD #### [facility] [address] [place] [address] Silvia Jen BZO Negative Normal NEGATIVE [facility] Comment on above: Performed By: #### D RUGRPD #### [facility] [address] [place] [address] Silvia Jen ESTRELLA Negative Normal NEGATIVE [facility] Comment on above: Performed By: #### D RUGRPD #### [facility] [address] [place] [address] Silvia Jen CUT-OFFS SEE BELOW Normal [facility] Comment on above: Result Comment: AMP (Amphetamine): [...] ng/mL Performed By: #### D RUGRPD #### [facility] [address] [place] [address] Silvia Jen DRUG CUT HEADER DRUG CLASS TEST SYST EM CUT-OFF CONCENTRATIONS ARE FOLLOWS: Normal [facility] Comment on above: Performed By: #### D RUGRPD #### [facility] [address] [place] [address] Silvia Jen mAMP Negative Normal NEGATIVE [facility] Comment on above: Performed By: #### D RUGRPD #### [facility] [address] [place] [address] Silvia Jen MTD Negative Normal NEGATIVE [facility] Comment on above: Performed By: #### D RUGRPD #### [facility] [address] [place] [address] Silvia Jen OPI Negative Normal NEGATIVE [facility] Comment on above: Performed By: #### D RUGRPD #### [facility] [address] [place] [address] Silvia Jen OXY Negative Normal NEGATIVE [facility] Comment on above: Performed By: #### D RUGRPD #### [facility] [address] [place] [address] Silvia Jen PCP Negative Normal NEGATIVE [facility] Comment on above: Performed By: #### D RUGRPD #### [facility] [address] [place] [address] Jen PPX Negative Normal NEGATIVE [facility] Comment on above: Performed By: #### D RUGRPD #### [facility] [address] [place] [address] Silvia Jen TCA Negative Normal NEGATIVE [facility] Comment on above: Performed By: #### D RUGRPD #### [facility] [address] [phone] Silviayvan Li THC Negative Normal NEGATIVE [facility] Comment on above: Performed By: #### D RUGRPD #### [facility] [address], [place] [address] Silviayvan Li MAGNESIUMon 09-13-2018 Magnesium [Mass/Vol] 1.9 mg/dL Normal 1.6-2.3 [facility] Comment on above: Performed By: #### C MP #### [facility] [address] [place], [place] [id number] Silviayvan Li PHOSPHORUSon 09-13-2018 Phosphate [Mass/Vol] 4.4 mg/dL Normal 2.5-4.5 [facility] Comment on above: Performed By: #### C MP #### [facility] [address] [place] [address] Silvia Li PREALBUMINon 09-13-2018 Prealbumin [Mass/Vol] 36.3 mg/dL Critically high 12.8-34.2 [facility] Comment on above: Performed By: #### C MP #### [facility] [address] [place], [place] [id number] Silviayvan Li URon 09-13-2018 , QUAL Negative Normal NEGATIVE [facility] Comment on above: Performed By: #### P REGU #### [facility] [address] [place], [place] [id number] Silvia Li PROF 14(COMP METB)on 019 Albumin [Mass/Vol] 4.7 g/dL Normal 3.5-5.0 [facility] Comment on above: Performed By: #### C MP #### [facility] [address] [place], [place] [id number] Silviayvan Li Albumin/Globulin [Mass ratio] 1.3 {ratio} Normal [facility] Comment on above: Performed By: #### C MP #### [facility] [address] [place], [place] [id number] Silvia Jen ALP [Catalytic activity/Vol] 85 U/L Critically low 130-525 [facility] Comment on above: Performed By: #### C MP #### [facility] [address] [id number] Silvia Jen ALT [Catalytic activity/Vol] 21 U/L Normal 9-52 [facility] Comment on above: Performed By: #### C MP #### [facility] [address] [place] [phone] Silvia Jen Anion gap [Moles/Vol] 11.4 mmol/L Normal [facility] Comment on above: Performed By: #### C MP #### [facility] [address] [place] [address] Silvia Jen AST [Catalytic activity/Vol] 17 U/L Normal 14-36 [facility] Comment on above: Performed By: #### C MP #### [facility] [address] [place] [address] Silvia Jen Bilirubin Ql (U) 0.7 mg/dL Normal 0.2-1.3 [facility] Comment on above: Performed By: #### C MP #### [facility] [address] [place] [address] Silvia Jen Calcium [Mass/Vol] 9.8 mg/dL Normal 8.4-10.2 [facility] Comment on above: Performed By: #### C MP #### [facility] [address] [place] [address] Silvia Jen Chloride [Moles/Vol] 100 mmol/L Normal 98-107 [facility] Comment on above: Performed By: #### C MP #### [facility] [address] [place] [address] Silvia Jen CO2 [Moles/Vol] 29.8 mmol/L Normal 22.0-30.0 [facility] Comment on above: Performed By: #### C MP #### [facility] [address] [place], [place] [phone] Silvia Jen Creatinine [Mass/Vol] 0.94 mg/dL Normal 0.52-1.04 [facility] Comment on above: Performed By: #### C MP #### [facility] [address] [place], [place] [id number] Silvia Jen Globulin (S) [Mass/Vol] 3.5 g/dL Normal [facility] Comment on above: Performed By: #### C MP #### [facility] [address] [place], [place] [phone] Silvia Jen Glucose [Mass/Vol] 93 mg/dL Normal 74-106 [facility] Comment on above: Performed By: #### C MP #### [facility] [address] [place] [address] Silvia Jen Potassium [Moles/Vol] 4.2 mmol/L Normal 3.4-5.0 [facility] Comment on above: Performed By: #### C MP #### [facility] [address] [place] [address] Silvia Jen Protein [Mass/Vol] 8.2 g/dL Normal 6.1-8.2 [facility] Comment on above: Performed By: #### C MP #### [facility] [address] [place] [address] Silvia Jen Sodium [Moles/Vol] 137 mmol/L Normal 137-145 [facility] Comment on above: Performed By: #### C MP #### [facility] [address] [place] [address] Silvia Jen Urea nitrogen [Mass/Vol] 14.0 mg/dL Normal 6.4-19.3 [facility] Comment on above: Performed By: #### C MP #### [facility] [address] [place] [address] Silvia Jen Urea nitrogen/Creatinine [Mass ratio] 14.9 mg/mg Normal [facility] Comment on above: Performed By: #### C MP #### [facility] [address] [place], [place] [id number] Silvia Jen TSHon 09-13-2018 TSH Qn SEE BELOW Normal [facility] Comment on above: Result Comment: <0.3 4 UIU/ml HYPERTHYROID 0.34-5.60 UIU/ml EUTHYROID >5.60 UIU/ml HYPOTHYROID Performed By: #### C MP #### [facility] [address] [place] [address] Silvia Jen TSH Qn 2.987 uIU/mL Normal 0.580-5.600 [facility] Comment on above: Performed By: #### C MP #### [facility] [address] [place] [address] Silvia Jen UA RANDOMon 09-13-2018 Bilirubin [Mass/Vol] Negative Normal NEGATIVE [facility] Comment on above: Performed By: #### U A #### [facility] [address] [place] [address] Silvia Jen BLOOD Negative Normal NEGATIVE [facility] Comment on above: Performed By: #### U A #### [facility] [address] [place] [address] Silvia Jen Clarity (U) CLEAR Normal [facility] Comment on above: Performed By: #### U A #### [facility] [address] [place] [address] Silvia Jen Color (U) LT. YELLOW Normal YELLOW [facility] Comment on above: Performed By: #### U A #### [facility] [address] [place] [address] Silvia Jen Glucose [Mass/Vol] Negative Normal NEGATIVE [facility] Comment on above: Performed By: #### U A #### [facility] [address] [place] [address] Silvia Jen Ketones Ql (U) Negative Normal NEGATIVE [facility] Comment on above: Performed By: #### U A #### [facility] [address] [place] [address] Silvia Jen Nitrite Ql (U) Negative Normal NEGATIVE [facility] Comment on above: Performed By: #### U A #### [facility] [address] [place] [address] Silvia Jen pH (Bld) 6.0 Normal 5-9 [facility] Comment on above: Performed By: #### U A #### [facility] [address] [place] [address] Silvia Jen Protein [Mass/Vol] Negative Normal [facility] Comment on above: Performed By: #### U A #### [facility] [address], [place] [address] Silviayvan Li SPEC GRAVITY 1.025 Normal 1.005-<=1.02 5 [facility] Comment on above: Performed By: #### U A #### [facility] [address] [phone] Silviayvan Li Urobilinogen Qn (U) 0.2 EU/dl Normal [facility] Comment on above: Performed By: #### U A #### [facility] [address] [phone] Silviayvan Li WBC (Bld) [#/Vol] Negative Normal NEGATIVE [facility] Comment on above: Performed By: #### U A #### [facility] [address] [place] [address] Silvia Jen VIT B12 AND FOLATEon 019 Cobalamin (Vitamin B12) [Mass/Vol] 737.0 pg/mL Normal 239.0-931.0 [facility] Comment on above: Performed By: #### C MP #### [facility] [address] [place], [place] [address] Silviayvan Li FOLATE 19.50 ng/mL Normal >=2.76 [facility] Comment on above: Performed By: #### C MP #### [facility] [address] [place], [place] [id number] Silvia Jen VITAMIN D 25 OHon 09-13-2018 VIT D 25-OH 27.1 ng/mL Normal [facility] Comment on above: Performed By: #### C MP #### [facility] [address] [place] [address] Silvia Jen VIT D RANGES SEE BELOW Normal [facility] Comment on above: Result Comment: <20 ng/mL Vit D deficient 20 - <30 ng/mL Vit D insufficient 30 - 100 ng/mL Vit D sufficient >100 ng/mL Potential Toxicity Performed By: #### C MP #### [facility] [address] [place], [place] [id number] Silvia Jen VITDH PLEASE NOTE: NORMAL RANGE CHANGE 9-5-2013, TESTING PERFORMED AT [facility]. Normal [facility] Comment on above: Performed By: #### C MP #### [facility] [address] [place], [place] [id number] Silvia Jen ACETAMINOPHENon 08-15-2018 Acetaminophen [Mass/Vol] <1.0 Critically low 10.1-30.0 [facility] Comment on above: Performed By: #### A CET #### [facility] [address] [place], [place] [id number] Silvia Jen CBC AUTO DIFFon 08-15-2018 Basophils (Bld) [#/Vol] 0.1 103/ul Normal 0.0-0.1 [facility] Comment on above: Performed By: #### C BC #### [facility] [address] [place] [address] Silvia Jen Basophils/100 WBC (Bld) 0.9 % Normal 0.2-2.0 [facility] Comment on above: Performed By: #### C BC #### [facility] [address] [place] [address] Silvia Jen Eosinophils (Bld) [#/Vol] 0.2 103/ul Normal 0.0-0.7 [facility] Comment on above: Performed By: #### C BC #### [facility] [address] [place], [place] [id number] Silvia Jen Eosinophils/100 WBC (Bld) 2.9 % Normal 0.9-7.0 [facility] Comment on above: Performed By: #### C BC #### [facility] [address] [place] [address] Silvia Jen Erythrocyte distribution width (RBC) [Ratio] 13.0 % Normal 11.0-15.0 [facility] Comment on above: Performed By: #### C BC #### [facility] [address] [place] [address] Silvia Jen Hematocrit (Bld) [Volume fraction] 44.1 % Normal 36.0-48.0 [facility] Comment on above: Performed By: #### C BC #### [facility] [address] [phone] Silvia Jen Hemoglobin (Bld) [Mass/Vol] 14.3 g/dL Normal 12.0-16.0 [facility] Comment on above: Performed By: #### C BC #### [facility] [address] [id number] Silvia Ejn IG # 0.01 10e3/ul Normal 0.00-0.03 [facility] Comment on above: Performed By: #### C BC #### [facility] [address] [place], [place] [address] Silvia Jen IG % 0.1 % Normal 0.0-0.5 [facility] Comment on above: Performed By: #### C BC #### [facility] [address] [place], [place] [address] Silvia Jen Lymphocytes (Bld) [#/Vol] 2.3 103/ul Normal 1.2-3.8 [facility] Comment on above: Performed By: #### C BC #### [facility] [address] [place], [place] [address] Silvia Jen Lymphocytes/100 WBC (Bld) 28.9 % Normal 20.5-60.0 [facility] Comment on above: Performed By: #### C BC #### [facility] [address] [place], [place] [address] Silvia Jen MANUAL DIFF REQ NO Normal [facility] Comment on above: Performed By: #### C BC #### [facility] [address] [place], [place] [address] Silvia Jen MCH (RBC) [Entitic mass] 28.0 pg Normal 26.7-34.0 [facility] Comment on above: Performed By: #### C BC #### [facility] [address] [place], [place] [address] Silvia Jen MCHC (RBC) [Mass/Vol] 32.4 g/dL Normal 29.9-35.2 [facility] Comment on above: Performed By: #### C BC #### [facility] [address] [place], [place] [address] Silvia Jen MCV (RBC) [Entitic vol] 86.5 fL Normal 79.1-95.6 [facility] Comment on above: Performed By: #### C BC #### [facility] [address], [place] [address] Silvia Jen Monocytes (Bld) [#/Vol] 0.4 103/ul Normal 0.3-0.8 [facility] Comment on above: Performed By: #### C BC #### [facility] [address] [place], [place] [address] Silvia Jen Monocytes/100 WBC (Bld) 5.6 % Normal 1.7-12.0 [facility] Comment on above: Performed By: #### C BC #### [facility] [address] [place], [place] [address] Silvia Jen Neutrophils (Bld) [#/Vol] 4.8 103/ul Normal 1.4-6.5 [facility] Comment on above: Performed By: #### C BC #### [facility] [address] [place], [place] [address] Silvia Jen Neutrophils/100 WBC (Bld) 61.6 % Normal 43.0-75.0 [facility] [facility] Comment on above: Performed By: #### C BC #### [facility] [address] [place], [place] [id number] Silvia Jen Platelet mean volume (Bld) [Entitic vol] 9.9 fL Normal 9.5-13.5 [facility] Comment on above: Performed By: #### C BC #### [facility] [address] [place], [place] [id number] Silvia Jen Platelets (Bld) [#/Vol] 262 103/ul Normal 150-450 [facility] Comment on above: Performed By: #### C BC #### [facility] [address] [place], [place] [id number] Silvia Jen RBC (Bld) [#/Vol] 5.10 106/ul Normal 3.40-5.30 [facility] Comment on above: Performed By: #### C BC #### [facility] [address] [address] Silvia Li WBC (Bld) [#/Vol] 7.8 103/ul Normal 4.0-11.0 [facility] Comment on above: Performed By: #### C BC #### [facility] [address] [place] [address] Silviayvan Li DRUG SCREEN RAPID (URINE)on 08-15-2018 AMP Negative Normal NEGATIVE [facility] Comment on above: Performed By: #### D RUGRPD #### [facility] [address] [place] [address] Silvia Jen BAR Negative Normal NEGATIVE [facility] Comment on above: Performed By: #### D RUGRPD #### [facility] [address] [place] [address] Silvia Jen BUP Negative Normal NEGATIVE [facility] Comment on above: Performed By: #### D RUGRPD #### [facility] [address] [place] [address] Silvia Jen BZO Negative Normal NEGATIVE [facility] Comment on above: Performed By: #### D RUGRPD #### [facility] [address] [place] [address] Silviayvan Li ESTRELLA Negative Normal NEGATIVE [facility] Comment on above: Performed By: #### D RUGRPD #### [facility] [address] [place] [address] Silvia Li CUT-OFFS SEE BELOW Normal [facility] Comment on above: Result Comment: AMP (Amphetamine): [...] ng/mL Performed By: #### D RUGRPD #### [facility] [address] [address] Silvia Jen DRUG CUT HEADER DRUG CLASS TEST SYST EM CUT-OFF CONCENTRATIONS ARE FOLLOWS: Normal [facility] Comment on above: Performed By: #### D RUGRPD #### [facility] [address] [address] Silvia Jen mAMP Negative Normal NEGATIVE [facility] Comment on above: Performed By: #### D RUGRPD #### [facility] [address] [address] Silvia Jen MTD Negative Normal NEGATIVE [facility] Comment on above: Performed By: #### D RUGRPD #### [facility] [address] [place] [address] Silvia Jen OPI Negative Normal NEGATIVE [facility] Comment on above: Performed By: #### D RUGRPD #### [facility] [address] [address] Silvia Jen OXY Negative Normal NEGATIVE [facility] Comment on above: Performed By: #### D RUGRPD #### [facility] [address] [address] Silvia Jen PCP Negative Normal NEGATIVE [facility] Comment on above: Performed By: #### D RUGRPD #### [facility] [address] [place] [address] Silvia Jen PPX Negative Normal NEGATIVE [facility] Comment on above: Performed By: #### D RUGRPD #### [facility] [address] [address] Silvia Jen TCA Negative Normal NEGATIVE [facility] Comment on above: Performed By: #### D RUGRPD #### [facility] [address] [address] Silvia Jen THC Negative Normal NEGATIVE [facility] Comment on above: Performed By: #### D RUGRPD #### [facility] [address] [id number] Silvia Jen URon 08-15-2018 , QUAL Negative Normal NEGATIVE [facility] Comment on above: Performed By: #### P REGU #### [facility] [address] [place], [place] [id number] Silvia Li PROF 14(COMP METB)on 019 Albumin [Mass/Vol] 5.0 g/dL Normal 3.5-5.0 [facility] Comment on above: Performed By: #### C MP #### [facility] [address] [place], [place] [id number] Silvia Jen Albumin/Globulin [Mass ratio] 1.7 {ratio} Normal [facility] Comment on above: Performed By: #### C MP #### [facility] [address] [place], [place] [id number] Silvia Jen ALP [Catalytic activity/Vol] 108 U/L Critically low 130-525 [facility] Comment on above: Performed By: #### C MP #### [facility] [address] [place] [address] Silvia Jen ALT [Catalytic activity/Vol] 21 U/L Normal 9-52 [facility] Comment on above: Performed By: #### C MP #### [facility] [address] [place], [place] [phone] Silvia Jen Anion gap [Moles/Vol] 11.1 mmol/L Normal [facility] Comment on above: Performed By: #### C MP #### [facility] [address] [place], [place] [phone] Silvia Jen AST [Catalytic activity/Vol] 16 U/L Normal 14-36 [facility] Comment on above: Performed By: #### C MP #### [facility] [address] [place], [place] [id number] Silvia Jen Bilirubin Ql (U) 0.3 mg/dL Normal 0.2-1.3 [facility] Comment on above: Performed By: #### C MP #### [facility] [address] [place], [place] [id number] Silvia Jen Calcium [Mass/Vol] 9.7 mg/dL Normal 8.4-10.2 [facility] Comment on above: Performed By: #### C MP #### [facility] [address] [id number] Silvia Jen Chloride [Moles/Vol] 102 mmol/L Normal 98-107 [facility] Comment on above: Performed By: #### C MP #### [facility] [address] [place], [place] [address] Silvia Jen CO2 [Moles/Vol] 29.4 mmol/L Normal 22.0-30.0 [facility] Comment on above: Performed By: #### C MP #### [facility] [address] [id number] Silvia Jen Creatinine [Mass/Vol] 1.05 mg/dL Critically high 0.52-1.04 [facility] Comment on above: Performed By: #### C MP #### [facility] [address] [address] Silvia Jen Globulin (S) [Mass/Vol] 3.0 g/dL Normal [facility] Comment on above: Performed By: #### C MP #### [facility] [address] [id number] Silvia Jen Glucose [Mass/Vol] 103 mg/dL Normal 74-106 [facility] Comment on above: Performed By: #### C MP #### [facility] [address] [id number] Silvia Jen Potassium [Moles/Vol] 3.5 mmol/L Normal 3.4-5.0 [facility] Comment on above: Performed By: #### C MP #### [facility] [address] [id number] Silvia Jen Protein [Mass/Vol] 8.0 g/dL Normal 6.1-8.2 [facility] Comment on above: Performed By: #### C MP #### [facility] [address] [id number] Silvia Jen Sodium [Moles/Vol] 139 mmol/L Normal 137-145 [facility] Comment on above: Performed By: #### C MP #### [facility] [address] [address] Silvia Li Urea nitrogen [Mass/Vol] 21.0 mg/dL Critically high 6.4-19.3 [facility] Comment on above: Performed By: #### C MP #### [facility] [address] [address] Silvia Li Urea nitrogen/Creatinine [Mass ratio] 20.0 mg/mg Normal [facility] Comment on above: Performed By: #### C MP #### [facility] [address] [id number] Silvia Li SALICYLATEon 08-15-2018 SALICYLATE 0.7 mg/dL Normal <=20.0 [facility] Comment on above: Performed By: #### S ALYC #### [facility] [address] [id number] Silvia Li Vital Signs Date Time Vital Sign Value Performing Clinician Sabina ash 10-28-2024 09:140400 Body height 175.26 cm [facility] 10-28-2024 09:14-0400 Body mass index (BMI) [Ratio] 23.1 kg/m2 [facility] 10-28-2024 09:14-0400 Body temperature 97.6 [degF] [facility] 10-28-2024 09:14-0400 Body weight 70.98 kg [facility] 10-28-2024 09:14-0400 Diastolic blood pressure 78 mm[Hg] [facility] 10-28-2024 09:14-0400 Heart rate 83 /min [facility] 10-28-2024 09:14-0400 Respiratory rate 18 /min [facility] 10-28-2024 09:14-0400 SaO2% (BldA) [Mass fraction] 98 % [facility] 10-28-2024 09:14-0400 Systolic blood pressure 118 mm[Hg] [facility] 10-25-2024 09:20-0400 Body temperature 98.8 [degF] Sadie Lombardo APRN-PLANT SCIENCE PROFESSOR Work Phone: [facility] 10-25-2024 09:20-0400 Diastolic blood pressure 92 mm[Hg] Sadie Padillairis PLATE GLASS GRINDER-PLANT SCIENCE PROFESSOR Work Phone: [facility] 10-25-2024 09:20-0400 Heart rate 85 /min Sadie Lombardo PLATE GLASS GRINDER-PLANT SCIENCE PROFESSOR Work Phone: [facility] 10-25-2024 09:20-0400 Respiratory rate 18 /min Sadie Padillairis PLATE GLASS GRINDER-PLANT SCIENCE PROFESSOR Work Phone: [facility] 10-25-2024 09:20-0400 SaO2% (BldA) [Mass fraction] 99 % Sadie Padillairis PLATE GLASS GRINDER-PLANT SCIENCE PROFESSOR Work Phone: [facility] 10-25-2024 09:20-0400 Systolic blood pressure 136 mm[Hg] Sadie Hilladalberto PLATE GLASS GRINDER-PLANT SCIENCE PROFESSOR Work Phone: [facility] 10-24-2024 13:54-0400 Body height 173.4 cm Tanvi Sommer MD Work Phone: [facility] 10-24-2024 13:54-0400 Body mass index (BMI) [Ratio] 23.65 kg/m2 Tanvi Sommer MD Work Phone: [facility] 10-24-2024 13:54-0400 Body weight 71.12 kg Tanvi Sommer MD Work Phone: [facility] 10-24-2024 13:54-0400 Diastolic blood pressure 78 mm[Hg] [facility]mer MD [facility] 10-24-2024 13:54-0400 Systolic blood pressure 133 mm[Hg] Tanvi Sommer MD Work Phone: [facility] 10-24-2024 08:51-0400 Body temperature 98.6 [degF] Fabby Bo PA-C Work Phone: [facility] 10-24-2024 08:51-0400 Diastolic blood pressure 82 mm[Hg] Fabby CLEMENTE-C Work Phone: [facility] 10-24-2024 08:51-0400 Heart rate 76 /min Fabby Moisés PA-C Work Phone: [facility] 10-24-2024 08:51-0400 Respiratory rate 16 /min Fabby Moisés PA-C Work Phone: [facility] 10-24-2024 08:51-0400 SaO2% (BldA) [Mass fraction] 98 % Fabby Moisés PA-C Work Phone: [facility] 10-24-2024 08:51-0400 Systolic blood pressure 133 mm[Hg] Fabby Moisés PA-C Work Phone: [facility] 09-21-2024 08:51-0400 Body temperature 98.29 [degF] Fabby Moisés PA-C Work Phone: [facility] 09-21-2024 08:51-0400 Diastolic blood pressure 83 mm[Hg] Fabby Moisés PA-C Work Phone: [facility] 09-21-2024 08:51-0400 Heart rate 69 /min Fabby Moisés PA-C Work Phone: [facility] 09-21-2024 08:51-0400 Respiratory rate 16 /min Fabby Moissé PA-C Work Phone: [facility] 09-21-2024 08:51-0400 SaO2% (BldA) [Mass fraction] 98 % Fabby Moisés PA-C Work Phone: [facility] 09-21-2024 08:51-0400 Systolic blood pressure 127 mm[Hg] Fabby Moisés PA-C Work Phone: [facility] 08-29-2024 11:59-0400 Diastolic blood pressure 70 mm[Hg] Antionette Benitez DO Work Phone: [facility] 08-29-2024 11:59-0400 Systolic blood pressure 120 mm[Hg] Antionette Eli DO Work Phone: [facility] 08-29-2024 11:26-0400 Body height 175.3 cm Antionette Eli DO Work Phone: [facility] 08-29-2024 11:26-0400 Body mass index (BMI) [Ratio] 22.88 kg/m2 Antionette Eli DO Work Phone: [facility] 08-29-2024 11:26-0400 Body temperature 99.1 [degF] Antionette Eli DO Work Phone: [facility] 08-29-2024 11:26-0400 Body weight 70.3 kg Antionette Eli DO Work Phone: [facility] 08-29-2024 11:26-0400 Heart rate 88 /min Antionettepayton Benitez DO Work Phone: [facility] 08-29-2024 11:26-0400 SaO2% (BldA) [Mass fraction] 100 % Antionettepayton Benitez DO Work Phone: [facility] 08-22-2024 18:26-0400 Body height 175.26 cm Myesha Caceres DO Work Phone: [facility] 08-22-2024 18:26-0400 Body mass index (BMI) [Ratio] 22.6 kg/m2 Fransicosofía Caceres DO Work Phone: [facility] 08-22-2024 18:26-0400 Body temperature 99.6 [degF] Fransicomillicentedilberto Schaeferett DO Work Phone: [facility] 08-22-2024 18:26-0400 Body weight 69.39 kg Fransicosofía Caceres DO Work Phone: [facility] 08-22-2024 18:26-0400 Diastolic blood pressure 92 mm[Hg] Myesha Caceres DO Work Phone: [facility] 08-22-2024 18:26-0400 Heart rate 88 /min Christopher Nicki DO Work Phone: [facility] 08-22-2024 18:26-0400 Respiratory rate 14 /min Christopher Nicki DO Work Phone: [facility] 08-22-2024 18:26-0400 SaO2% (BldA) [Mass fraction] 97 % Christopher Nicki DO Work Phone: [facility] 08-22-2024 18:26-0400 Systolic blood pressure 139 mm[Hg] Christopher Nicki DO Work Phone: [facility] 08-12-2024 09:21-0400 Body height 175.3 cm Tania Youngblood PA Work Phone: [facility] 08-12-2024 09:21-0400 Body mass index (BMI) [Ratio] 22.59 kg/m2 Tania Youngblood PA Work Phone: [facility] 08-12-2024 09:21-0400 Body weight 69.4 kg Tania Youngblood PA Work Phone: [facility] 08-12-2024 09:21-0400 Diastolic blood pressure 82 mm[Hg] Tania Youngblood PA Work Phone: [facility] 08-12-2024 09:21-0400 Heart rate 71 /min Tania Youngblood PA Work Phone: [facility] 08-12-2024 09:21-0400 Respiratory rate 16 /min Tania Youngblood PA Work Phone: [facility] 08-12-2024 09:21-0400 SaO2% (BldA) [Mass fraction] 99 % Tania Youngblood PA Work Phone: [facility] 08-12-2024 09:21-0400 Systolic blood pressure 122 mm[Hg] Tania Youngblood PA Work Phone: [facility] 07-08-2024 15:45-0400 Body mass index (BMI) [Ratio] 21.44 kg/m2 Antionette Benitez DO Work Phone: [facility] 07-08-2024 15:45-0400 Body temperature 98.71 [degF] Antionette Benitez DO Work Phone: [facility] 07-08-2024 15:45-0400 Body weight 65.9 kg Antionette Benitez DO Work Phone: [facility] 07-08-2024 15:45-0400 Diastolic blood pressure 92 mm[Hg] Antionette Benitez DO Work Phone: [facility] 07-08-2024 15:45-0400 Heart rate 68 /min Antionette Benitez DO Work Phone: [facility] 07-08-2024 15:45-0400 SaO2% (BldA) [Mass fraction] 100 % Antionette Benitez DO Work Phone: [facility] 07-08-2024 15:45-0400 Systolic blood pressure 137 mm[Hg] Antionette Benitez DO Work Phone: [facility] 06-19-2024 08:34-0500 Body height 173.4 cm Ian Vasquez MD Work Phone: [facility] 06-19-2024 08:34-0500 Body mass index (BMI) [Ratio] 23 kg/m2 Ian Vasquez MD Work Phone: [facility] 06-19-2024 08:34-0500 Body weight 69.13 kg Ian Vasquez MD Work Phone: [facility] 06-19-2024 08:34-0500 Diastolic blood pressure 82 mm[Hg] Ian Vasquez MD Work Phone: [facility] 06-19-2024 08:34-0500 Heart rate 80 /min Ian Vasquez MD Work Phone: [facility] 06-19-2024 08:34-0500 SaO2% (BldA) [Mass fraction] 97 % Ian Vasquez MD Work Phone: [facility] 06-19-2024 08:34-0500 Systolic blood pressure 126 mm[Hg] Ian Vasquez MD Work Phone: [facility] 06-04-2024 09:37-0500 Body weight 65.68 kg Christopher Nicki DO Work Phone: [facility] 06-04-2024 09:37-0500 Diastolic blood pressure 84 mm[Hg] Christopher Nicki DO Work Phone: [facility] 06-04-2024 09:37-0500 Heart rate 74 /min Christopher Nicki DO Work Phone: [facility] 06-04-2024 09:37-0500 SaO2% (BldA) [Mass fraction] 100 % Christopher Nicki DO Work Phone: [facility] 06-04-2024 09:37-0500 Systolic blood pressure 132 mm[Hg] Christopher Nicki DO Work Phone: [facility] 05-07-2024 16:48-0500 Diastolic blood pressure 60 mm[Hg] Antionette Benitez DO Work Phone: [facility] 05-07-2024 16:48-0500 Systolic blood pressure 100 mm[Hg] Antionette Benitez DO Work Phone: [facility] 05-07-2024 15:48-0500 Body height 175.3 cm Antionette Benitez DO Work Phone: [facility] 05-07-2024 15:48-0500 Body mass index (BMI) [Ratio] 20.86 kg/m2 Antionette Benitez DO Work Phone: [facility] 05-07-2024 15:48-0500 Body weight 64.1 kg Antionette Benitez DO Work Phone: [facility] 05-07-2024 15:48-0500 Heart rate 93 /min Antionette Benitez DO Work Phone: [facility] 05-07-2024 15:48-0500 SaO2% (BldA) [Mass fraction] 99 % Antionette Benitez DO Work Phone: [facility] 04-21-2024 01:00-0500 Diastolic blood pressure 84 mm[Hg] [facility] 04-21-2024 01:00-0500 Heart rate 55 /min [facility] 04-21-2024 01:00-0500 Mean blood pressure 94 mm[Hg] [facility] 04-21-2024 01:00-0500 Respiratory rate 17 /min [facility] 04-21-2024 01:00-0500 SaO2% (BldA) [Mass fraction] 99 % [facility] 04-21-2024 01:00-0500 Systolic blood pressure 113 mm[Hg] [facility] 04-21-2024 00:30-0500 Blood Pressure Location [facility] 04-21-2024 00:30-0500 Diastolic blood pressure 90 mm[Hg] [facility] 04-21-2024 00:30-0500 Heart rate 57 /min [facility] 04-21-2024 00:30-0500 Mean blood pressure 100 mm[Hg] [facility] 04-21-2024 00:30-0500 Respiratory rate 15 /min [facility] 04-21-2024 00:30-0500 SaO2% (BldA) [Mass fraction] 98 % [facility]rel[facility] 04-21-2024 00:30-0500 Systolic blood pressure 120 mm[Hg] [facility] 04-20-2024 22:55-0500 Body temperature 98.42 [degF] [facility] 04-20-2024 22:55-0500 Diastolic blood pressure 93 mm[Hg] [facility] 04-20-2024 22:55-0500 Heart rate 83 /min [facility] 04-20-2024 22:55-0500 Respiratory rate 20 /min [facility] 04-20-2024 22:55-0500 SaO2% (BldA) [Mass fraction] 98 % [facility] 04-20-2024 22:55-0500 Systolic blood pressure 133 mm[Hg] [facility] 04-05-2024 15:27-0500 Diastolic blood pressure 80 mm[Hg] Antionette Benitez DO Work Phone: [facility] 04-05-2024 15:27-0500 Systolic blood pressure 122 mm[Hg] Antionette Benitez DO Work Phone: [facility] 04-05-2024 14:46-0500 Body height 175.3 cm Antionette Benitez DO Work Phone: [facility] 04-05-2024 14:46-0500 Body mass index (BMI) [Ratio] 20.64 kg/m2 Antionette Benitez DO Work Phone: [facility] 04-05-2024 14:46-0500 Body temperature 98.1 [degF] Antiontete Eli DO Work Phone: [facility] 04-05-2024 14:46-0500 Body weight 63.4 kg Antionette Eli DO Work Phone: [facility] 04-05-2024 14:46-0500 Heart rate 98 /min Antionette Eli DO Work Phone: [facility] 04-05-2024 14:46-0500 SaO2% (BldA) [Mass fraction] 97 % Antionette Eli DO Work Phone: [facility] 03-16-2024 06:40-0500 Diastolic blood pressure 65 mm[Hg] Roney Mudrakola DO Work Phone: [facility] 03-16-2024 06:40-0500 Heart rate 72 /min Roney Moustapharakola DO Work Phone: [facility] 03-16-2024 06:40-0500 Respiratory rate 16 /min Roney Moustapharakola DO Work Phone: [facility] 03-16-2024 06:40-0500 SaO2% (BldA) [Mass fraction] 98 % Roney Moustapharakola DO Work Phone: [facility] 03-16-2024 06:40-0500 Systolic blood pressure 106 mm[Hg] Roney Mudrakola DO Work Phone: [facility] 03-16-2024 04:59-0500 Body height 175.3 cm Roney Mudrakola DO Work Phone: [facility] 03-16-2024 04:59-0500 Body mass index (BMI) [Ratio] 20.67 kg/m2 Roney Mudrakola DO Work Phone: [facility] 03-16-2024 04:59-0500 Body temperature 99.3 [degF] Roney Moustapharakola DO Work Phone: [facility] 11-23-2024 04:59-0500 Body weight 63.5 kg Roney Issa DO Work Phone: [facility] 11-30-2023 15:08-0400 Body height 173.4 cm Kalyn Thomasi DO Work Phone: [facility] 11-30-2023 15:08-0400 Body mass index (BMI) [Ratio] 20.35 kg/m2 Kalyn Karolyi DO Work Phone: [facility] 11-30-2023 15:08-0400 Body weight 61.15 kg Kalyn Karolyi DO Work Phone: [facility] 11-30-2023 15:08-0400 Diastolic blood pressure 74 mm[Hg] Kalyn Karolyi DO Work Phone: [facility] 11-30-2023 15:08-0400 Heart rate 88 /min Kalyn Karolyi DO Work Phone: [facility] 11-30-2023 15:08-0400 Systolic blood pressure 124 mm[Hg] Kalyn Karolyi DO Work Phone: [facility] 12-21-2021 08:11-0400 Body temperature 98.42 [degF] No Pcp Required [facility] 12-21-2021 08:11-0400 Diastolic blood pressure 77 mm[Hg] No Pcp Required [facility] 12-21-2021 08:11-0400 Diastolic blood pressure 72 mm[Hg] No Pcp Required [facility] [facility] 12-21-2021 08:11-0400 Heart rate 65 /min No Pcp Required [facility] 12-21-2021 08:11-0400 Heart rate 63 /min No Pcp Required [facility] 12-21-2021 08:11-0400 Respiratory rate 16 /min No Pcp Required [facility] 12-21-2021 08:11-0400 SaO2% (BldA) [Mass fraction] 94 % No Pcp Required [facility] 12-21-2021 08:11-0400 Systolic blood pressure 122 mm[Hg] No Pcp Required [facility] 12-21-2021 08:11-0400 Systolic blood pressure 116 mm[Hg] No Pcp Required [facility] Encounters Encounter Date Encounter Type Care Provider Facility Start: 10-28-2024 End: 10-28-2024 Telephone encounter Hailey Kearns [facility] Start: 10-28-2024 End: 10-28-2024 ambulatory NON STAFF [facility] Work Phone: Start: 10-28-2024 End: 10-28-2024 Patient encounter procedure Sarah Puri [employer]ATE [employer]ASS GR[employer] Work Phone: Start: 10-25-2024 End: 10-25-2024 Unlisted evaluation and management service Sadie Lombardo PLATE GLASS GRINDER-PLANT SCIENCE PROFESSOR Work Phone: [facility] Comment on above: Sore throat (Primary Dx); Suspected COVID-19 virus infection Start: 10-25-2024 End: 10-25-2024 Unknown [facility] Start: 10-24-2024 End: 10-24-2024 Initial preventive medicine new pt age 18-39yrs Tanvi Sommer MD Work Phone: [facility] Comment on above: Well woman exam with routine gynecological exam (Primary Dx); Burning with urination; Encounter for test, result unknown; Unprotected sexual intercourse Start: 10-24-2024 End: 10-24-2024 Patient encounter procedure Tanvi Sommer MD Work Phone: [facility] Start: 10-24-2024 End: 10-24-2024 ambulatory TANVI SOMMER [facility] Start: 10-24-2024 End: 10-24-2024 Office outpatient visit 15 minutes Fabby Bo PA-C Work Phone: [facility] Comment on above: Viral URI (Primary D x); Sore throat Start: 10-24-2024 End: 10-24-2024 Unknown FABBY [facility] Start: 10-13-2024 End: 10-21-2024 Refill Ian Vasquez MD Work Phone: [facility] Comment on above: Med Refill Start: 09-21-2024 End: 09-21-2024 Unknown FABBYSEBASTIÁN BO [facility] Start: 09-21-2024 End: 09-21-2024 Office outpatient new 30 minutes Fabby Bo PA-C Work Phone: [facility] Comment on above: Vaginal discharge (P rimary Dx); Dysuria Start: 08-29-2024 End: 10-23-2024 Patient encounter procedure Antionette Benitez DO Work Phone: [facility] Comment on above: Elevated blood press ure reading without diagnosis of hypertension (Primary Dx); Missed period Start: 08-29-2024 End: 08-29-2024 ambulatory ANTIONETTE BENITEZ Facility:[facility] Start: 08-22-2024 End: 08-22-2024 Departed Referred Myesha Caceres DO Work Phone: [facility] [place] Work Phone: Start: 08-22-2024 End: 08-22-2024 ambulatory NON STAFF [facility] Work Phone: Start: 08-22-2024 End: 08-22-2024 Patient encounter procedure Myesha Caceres DO Work Phone: [facility]av Work Phone: Start: 08-13-2024 End: 08-13-2024 ambulatory TANIA YOUNGBLOOD Not Available Start: 08-12-2024 End: 08-12-2024 Bamboo flowsheet Tania CLEMENTE Work Phone: [facility] Start: 08-12-2024 End: 08-12-2024 Bamboo flowsheet Tania CLEMENTE Work Phone: [facility] Start: 08-12-2024 End: 08-12-2024 Office outpatient visit 25 minutes Tania CLEMENTE Work Phone: [facility] Comment on above: Seizure (CMS/HCC) (P rimary Dx); Anxiety Start: 08-12-2024 End: 08-12-2024 ambulatory TANIA YOUNGBLOOD Not Available Start: 07-23-2024 End: 07-23-2024 Patient encounter procedure Myesha Caceres DO Work Phone: [facility] [place] Work Phone: Start: 07-23-2024 End: 07-23-2024 ambulatory NON STAFF [facility] Work Phone: Start: 07-18-2024 End: 07-22-2024 Telephone encounter Jill Friedman INDUSTRIAL ENGINEERING DIRECTOR Work Phone: [facility] Start: 07-09-2024 End: 09-09-2024 Follow-up encounter Antionette Benitez DO Work Phone: [facility] Start: 07-08-2024 End: 07-08-2024 Patient encounter procedure Antionette Benitez DO Work Phone: [facility] Comment on above: Right flank pain (Pr imary Dx); Vaginal discharge Start: 07-08-2024 End: 07-08-2024 ambulatory ANTIONETTE BENITEZ Facility:[facility] Start: 07-07-2024 End: 07-07-2024 E-mail encounter from caregiver Antionette Benitez DO Work Phone: [facility] Start: 07-07-2024 End: 07-07-2024 Patient encounter procedure Antionette Benitez DO Work Phone: [facility] Comment on above: Appointment Request Start: 07-05-2024 End: 07-05-2024 ambulatory IAN Jayy VASQUEZ [facility] Start: 06-27-2024 End: 07-02-2024 Refill Antionette Benitez DO Work Phone: [facility] Comment on above: Refill Request Start: 06-19-2024 End: 07-16-2024 ambulatory [facility] Start: 06-19-2024 End: 06-19-2024 Office outpatient new 45 minutes Ian Vasquez MD Work Phone: [facility] Comment on above: Syncope, unspecified syncope type (Primary Dx); Palpitations Start: 06-19-2024 End: 06-19-2024 ambulatory [facility] Start: 06-18-2024 End: 06-18-2024 ambulatory ANTIONETTE N BENITEZ Facility:[facility] Start: 06-18-2024 End: 06-18-2024 Telephone encounter Ashley Novak C[facility] Start: 06-12-2024 End: 06-12-2024 ambulatory MYESHA CACERES Not Available Start: 06-11-2024 End: 06-11-2024 ambulatory ANTIONETTE N BENITEZ Facility:[facility] Start: 06-11-2024 End: 06-11-2024 Patient encounter procedure Antionette Aurora McmahonBenitez DO Work Phone: [facility] Comment on above: Subclinical hypothyr oidism (Primary Dx); Vasovagal syncope; Seizure-like activity (HCC) Start: 06-11-2024 End: 06-11-2024 Telemedicine consultation with patient Antionette N Benitez DO Work Phone: [facility] Start: 06-11-2024 End: 06-13-2024 Refill Antionette N Benitez DO Work Phone: [facility] Comment on above: Refill Request Start: 06-06-2024 End: 06-06-2024 Chart abstracting Scanning Provider External [facility] Start: 06-04-2024 End: 06-04-2024 Bamboo flowsheet Myesha Caceres DO Work Phone: [facility] Start: 06-04-2024 End: 06-04-2024 Bamboo flowsheet Myesha Caceres DO Work Phone: [facility] Start: 06-04-2024 End: 06-04-2024 Office outpatient new 45 minutes Fransicosofía Nicki DO Work Phone: [facility] Comment on above: Seizure (CMS/HCC) (P rimary Dx); Anxiety Start: 06-04-2024 End: 06-04-2024 ambulatory EWELINAEDILBERTO NICKI Not Available Start: 05-07-2024 End: 05-07-2024 Patient encounter procedure Antionette Aurora Benitez DO Work Phone: [facility] Comment on above: Vasovagal syncope (P rimary Dx); Sinus tachycardia; Subclinical hypothyroidism; Cervicogenic headache; Borderline personality disorder (HCC) Start: 05-07-2024 End: 05-07-2024 ambulatory ANTIONETTE BENITEZ Facility:[facility] Start: 04-20-2024 End: 04-21-2024 Emergency department patient visit DO Hermelindo Howard [facility] Start: 04-12-2024 End: 04-12-2024 ambulatory ANTIONETTE BENITEZ Facility:[facility] Start: 04-12-2024 End: 04-12-2024 Nursing evaluation of patient and report Nurse Geoffrey Gillespie [facility] [place] Phone: [facility] Comment on above: Palpitations (Primar y Dx) Start: 04-10-2024 End: 04-10-2024 ambulatory ANTIONETTE BENITEZ Facility:[facility] Start: 04-10-2024 End: 04-10-2024 Nursing evaluation of patient and report Nurse Geoffrey Gillespie [facility] Work Phone: [facility] Comment on above: Elevated blood press ure reading without diagnosis of hypertension; Palpitations Start: 04-05-2024 End: 04-05-2024 ambulatory ANTIONETTE BENITEZ Facility:[facility] Start: 04-05-2024 End: 04-05-2024 Patient encounter procedure Antionette Aurora Benitez DO Work Phone: [facility] Comment on above: Palpitations (Primar y Dx); Borderline personality disorder (HCC) Start: 04-05-2024 End: 04-08-2024 Telephone encounter Antionette Benitez DO Work Phone: [facility] Comment on above: Future Appointment ( Holter Monitor ) Start: 03-16-2024 End: 03-16-2024 Emergency department patient visit Roney Issa DO Work Phone: [facility] Comment on above: Acute cystitis with hematuria (Primary Dx); Pyelonephritis Start: 02-07-2024 End: 02-07-[address] [facility] Start: 02-07-2024 Encounter for gynecological examination (general) (routine) without abnormal findings [facility] Start: 11-30-2023 End: 11-30-2023 ambulatory [facility] Start: 11-30-2023 ambulatory [facility] Start: 11-30-2023 Encounter for genera l adult medical examination without abnormal findings [facility] Start: 11-30-2023 End: 11-30-2023 Patient encounter status [facility] Work Phone: [facility] Start: 11-30-2023 End: 11-30-2023 Periodic preventive med est patient 18-39 yrs Kalyn Thomas DO Work Phone: [facility] Comment on above: Well adult exam (Terri freddy Dx); Atopic neurodermatitis; Need for vaccination Start: 12-17-2021 End: 12-21-2021 Evaluation and management of inpatient Edna Kurtz Inpt 2N Rm [id number] B Start: 09-13-2018 End: 09-14-2018 Patient encounter procedure DOCTOR ROSEANNE Facility:[facility] Start: 08-15-2018 End: 08-16-2018 Patient encounter procedure AYAAN CASTRO Facility:[facility] Procedures Date Procedure Procedure Detail Performing Clinician Start: 10-25-2024 SARS-CoV-2 (COVID-19 ) Ag [Presence] in Respiratory specimen by Rapid immunoassay Sadie Lombardo PLATE GLASS 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-PLANT SCIENCE PROFESSOR Work Phone: Start: 10-24-2024 Iadna respiratry pro be & rev trnscr 3-5 targets Fabby Bo PA-C Work Phone: Start: 10-24-2024 Microscopic observat ion [Identifier] in Cervix by Cyto stain Tanvi Sommer MD Work Phone: Start: 09-21-2024 Infectious agent enzymatic actv oth/thn virus Fabby Bo PA-C Work Phone: Start: 09-21-2024 Urine test visual color cmprsn meths Fabby Bo PA-C Work Phone: Start: 08-22-2024 Quick Strep (POC) Krunal germaine Nicki DO Work Phone: Start: 07-23-2024 MRI of head Lexa r Nicki DO Work Phone: Start: 07-08-2024 Urnls dip stick/tabl et rgnt auto w/o microscopy Antionette Benitez DO Work Phone: Start: 04-05-2024 Ecg routine ecg w/le ast 12 lds i&r only [facility] Provider Start: 03-16-2024 Urine test visual color cmprsn meths Roney Luis Manuel DO Work Phone: Start: 03-16-2024 Urnls dip stick/tabl et reagent auto microscopy Leeroy Garay DO Work Phone: Start: 02-07-2024 Microscopic observat ion [Identifier] in Cervix by Cyto stain Ian Vasquez MD Work Phone: Start: 11-30-2023 Adult depression screening assessment Kalyn Gilman DO Work Phone: Start: 12-18-2021 Lipid 1996 panel - S edin or Plasma Fabby Bo PA-C Work Phone: Plan of Treatment Date Care Activity Detail Author Start: 10-19-2078 RSV Immunization for Adults (1 - 1-dose 75+ series) RSV Immunization for Adults (1 - 1-dose 75+ series) Start: 10-19-2053 Zoster Vaccines (1 o f 2) Zoster Vaccines (1 of 2) Start: 11-29-2033 DTaP,Tdap and Td Vaccines (8 - Td or Tdap) DTaP,Tdap and Td Vaccines (8 - Td or Tdap) [facility] Start: 11-29-2033 DTaP/Tdap/Td Vaccine s (8 - Td or Tdap) DTaP/Tdap/Td Vaccines (8 - Td or Tdap) Start: 11-29-2033 Urine microalbumin profile DTaP,Tdap,Td Vaccine (8 - Td or Tdap) [facility] Start: 10-25-2027 Screening for malignant neoplasm of cervix Pap Smear [facility] Start: 02-06-2027 Screening for malignant neoplasm of cervix Pap Smear [facility] Start: 12-18-2026 Lipid panel Lipid Panel [facility] Start: 10-25-2025 Yearly Adult Physical Yearly Adult P [facility] Start: 10-24-2025 Adult BMI Screening Adult BMI Screen ing [facility] Start: 10-24-2025 Screening for Chlamydia trachomatis Chlamydia Screening [facility] Start: 10-24-2025 Tobacco Screening Tobacco Screening [facility] Start: 08-29-2025 Annual PCP Team Chronic Disease Visit Annual PCP Team Chronic Disease Visit [facility] Start: 07-08-2025 Annual PCP Team Chronic Disease Visit Annual PCP Team Chronic Disease Visit [facility] Start: 07-08-2025 GC (Gonorrhea) Screening (18-24) GC (Gonorrhea) Screening (18-24) [facility] Start: 07-08-2025 Screening for Chlamydia trachomatis Chlamydia Screening (18-24) [facility] Start: 06-19-2025 Adult BMI Screening Adult BMI Screen ing [facility] Start: 06-19-2025 Tobacco Screening Tobacco Screening [facility] Start: 06-11-2025 Annual PCP Team Chronic Disease Visit Annual PCP Team Chronic Disease Visit [facility] Start: 05-07-2025 Annual PCP Team Chronic Disease Visit Annual PCP Team Chronic Disease Visit [facility] Start: 12-23-2024 Influenza vaccination [facility] Start: 11-30-2024 Yearly Adult Physical Yearly Adult P [facility] Start: 11-29-2024 Adult BMI Screening Adult BMI Screen ing [facility] Start: 11-29-2024 Depression Screening Depression Scre ening [facility] Start: 11-29-2024 Tobacco Screening Tobacco Screening [facility] Start: 11-05-2024 End: 11-05-2024 Patient encounter procedure 11/05/2024 10:45 AM EDT Office Visit [facility] [address] [place] [address] Tanvi Sommer MD [address] [place] [address] [facility] Start: 10-24-2024 End: 10-24-2024 Patient encounter procedure 10/24/2024 2:15 PM EDT Office Visit [facility] [address] [place] [address] Tanvi Sommer MD [address] [place] [address] [facility] Start: 10-19-2024 Screening for malignant neoplasm of cervix [facility] Start: 09-24-2024 End: 09-24-2024 Patient encounter procedure 09/24/2024 1:00 PM EDT Office Visit [facility] [address] [place] [address] Lisa Henderson PA-C [address] [place] [address] [facility] Start: 09-23-2024 End: 09-23-2024 Patient encounter procedure 09/23/2024 10:00 AM EDT Office Visit [facility] [address] [place] [address] Tania Youngblood PA [address] [place] [address] [facility] Start: 08-22-2024 [facility] Start: 08-12-2024 End: 08-12-2024 Patient encounter procedure 08/12/2024 9:20 AM EDT Office Visit [facility] S[facility] [address] [place] [phone] Tania Youngblood PA [address] [place] [address] Arrived [facility] Comment on above: Arrived Start: 07-10-2024 End: 07-10-2024 Patient encounter procedure 07/10/2024 3:15 PM EDT Office Visit [facility] [address] [address] [place] [phone] Myesha Caceres DO [address] [place] [address] [facility] Start: 07-08-2024 End: 07-08-2024 Patient encounter procedure 07/08/2024 3:40 PM EDT Office Visit [address] [phone] [place] [address] [place] [address] Possible Kidney Infection [facility] Comment on above: Possible Kidney Infe ction Start: 06-19-2024 End: 06-19-2025 Echo complete W/O contrast Echo complete W/O contrast Echocardiography Routine Syncope, unspecified syncope type Palpitations Expected: 06/19/2024, Expires: 06/19/2025 [facility] Work Phone: Comment on above: Expected: 06/19/2024 , Expires: 06/19/2025 Start: 06-19-2024 End: 06-19-2025 Event Monitor (In Office) [facility] Comment on above: Expected: 06/19/2024 , Expires: 06/19/2025 Start: 06-19-2024 End: 06-19-2024 Patient encounter procedure 06/19/2024 9:00 AM EST Office Visit [facility] [address] [place] [phone] Ian Vasquez MD [address] [place] [address] [facility] Start: 06-12-2024 End: 06-12-2024 Clinical Support 06/12/2024 4:00 PM EST Clinical Support [facility] S[facility]UENT[facility] [address] [facility] [place] [address] [facility] SIFUENT[facility] Start: 06-11-2024 End: 09-10-2024 TSH W/REFLEX FT4 TSH W/REFLEX FT4 Lab Routine Subclinical hypothyroidism Expected: 06/11/2024, Expires: 09/10/2024 [facility] Work Phone: Comment on above: Expected: 06/11/2024 , Expires: 09/10/2024 Start: 06-07-2024 End: 06-07-2024 ambulatory 06/07/2024 10:40 AM EST [facility] [address] [place], [place] [id number] Antionette Benitez DO [address] [place] [address] 1 month [facility] Comment on above: 1 month Start: 06-04-2024 End: 06-04-2025 EEG, Including Recording Awake or Asleep EEG, Including Recording Awake or Asleep Neurology Routine Seizure ([facility]/HCC) Expected: 06/04/2024 (Approximate), Expires: 06/04/2025 [facility] Comment on above: Expected: 06/04/2024 (Approximate), Expires: 06/04/2025 Start: 06-04-2024 End: 06-04-2025 MR Brain WO and W contrast IV MR brain w and wo contrast routine Imaging Routine Seizure (CMS/HCC) Expected: 06/04/2024, Expires: 06/04/2025 [facility] Work Phone: Comment on above: Expected: 06/04/2024 , Expires: 06/04/2025 Start: 06-04-2024 End: 06-04-2024 Patient encounter procedure 06/04/2024 9:30 AM EST Office Visit [facility] [address] [place] [address] Myesha Caceres, [address] [place] [address] Arrived [facility] Comment on above: Arrived Start: 05-06-2024 End: 05-06-2024 Patient encounter procedure 05/06/2024 9:40 AM EST Office Visit [facility] [place] [address] [place] [address] [place] [address] [place] [address] 1 mo follow up [facility] Comment on above: 1 mo follow up Start: 04-12-2024 End: 04-12-2024 Nursing evaluation of patient and report 04/12/2024 3:30 PM EST Nurse Visit [facility] [address] [place] [phone] Moc, Nurse Geoffrey [facility] [address] [place], [place] [id number] holter return [facility] Comment on above: holter return Start: 04-10-2024 End: 04-10-2024 Nursing evaluation of patient and report 04/10/2024 1:00 PM EST Nurse Visit [facility] [address] [place] [phone] Moc, Nurse [facility] [address] [place] [address] Holter Monitor 48hr Family Medicine [facility] Comment on above: Holter Monitor 48hr Start: 12-24-2023 COVID-19 Vaccine ( season) COVID-19 Vaccine ( season) Start: 12-24-2023 COVID-19 Vaccine () COVID-19 Vaccine () [facility] Start: 12-24-2023 Influenza vaccination [facility] Start: 12-23-2022 COVID-19 Vaccine ( season) COVID-19 Vaccine () [facility] Start: 12-17-2021 End: 12-18-2022 [facility] Start: 10-19-2021 Depression Screening Depression Scre ening [facility] Start: 10-19-2021 GC (Gonorrhea) Screening () GC (Gonorrhea) Screening () [facility] Start: 10-19-2021 Hepatitis C screening Hepatitis C Sc reening Start: 10-19-2021 HIV screening HIV Screening [facility] Start: 10-19-2021 Screening for Chlamydia trachomatis Chlamydia Screening () [facility] Start: 10-19-2017 Peds To Adult Transition Annual Assessment Peds To Adult Transition Annual Assessment [facility] Start: 2015 Depression Screening Depression Scre ening Start: 2015 Peds To Adult Transition Initial Discussion Peds To Adult Transition Initial Discussion [facility] Start: 2015 Tobacco Screening Tobacco Screening [facility] Start: 10-19-2009 Pneumococcal Vaccine : Pediatrics and At-Risk Adult Patients (1 of 1 - PPSV23, PCV20, or PCV21) Pneumococcal Vaccine: Pediatrics and At-Risk Adult Patients (1 of 1 - PPSV23, PCV20, or PCV21) [facility] Start: 2007 Hearing Screening (#1) Hearing Scree angella (#1) [facility] Start: 2003 HIV screening HIV Screening [facility] Start: 2003 Thyroid stimulating hormone measurement TSH Level [facility] Start: 2003 Yearly Adult Physical Yearly Adult P hysical [facility] Atopobium vaginae DN A [Presence] in Vaginal fluid by FERMÍN with probe detection [facility] Bacteria identified in Urine by Culture BACTERIAL CULTURE, URINE Microbiology Routine Right flank pain Ordered: 07/08/2024 [facility] Comment on above: Ordered: 07/08/2024 Bacteria identified in Urine by Culture Urine Culture Microbiology Routine Dysuria Ordered: 09/21/2024 Urgent Care Work Phone: Comment on above: Ordered: 09/21/2024 Bacterial vaginosis associated bacterium 2 DNA [Presence] in Vaginal fluid by FERMÍN with probe detection [facility] BACTERIAL VAGINOSIS NAAT BACTERIAL VAGINOSIS NAAT Lab Routine Vaginal discharge Ordered: 07/08/2024 [facility] Comment on above: Ordered: 07/08/2024 RENE/TRICHOMONAS NAAT RENE/TRICHOMONAS NAAT Lab Routine Vaginal discharge Ordered: 07/08/2024 [facility] Comment on above: Ordered: 07/08/2024 Chlamydia trachomati s DNA [Presence] in Unspecified specimen by FERMÍN with probe detection Chlamydia/GC by PCR [facility] Microbiology Routine Unprotected sexual intercourse 10/24/2024 2:51 PM EDT [facility] Chlamydia trachomatis+Neisseria gonorrhoeae DNA [Presence] in Unspecified specimen by FERMÍN with probe detection GONORRHEA/CHLAMYDIA NAAT Lab Routine Vaginal discharge Ordered: 07/08/2024 [facility] Comment on above: Ordered: 07/08/2024 End: 04-05-2025 ECG COMPLETE ECG COMPLETE ECG Routine Palpitations 1 Occurrences starting 04/05/2024 until 04/05/2025 [facility] Work Phone: Comment on above: 1 Occurrences starti ng 04/05/2024 until 04/05/2025 ECG COMPLETE ECG COMPLETE ECG Palpitations 04/05/2024 4:17 PM EST [facility] Megasphaera sp type 1 DNA [Presence] in Vaginal fluid by FERMÍN with probe detection [facility] Thin Prep Pap Test Thin Prep Pap Test Pathology and Cytology Routine Well woman exam with routine gynecological exam 10/24/2024 2:51 PM EDT [facility] Work Phone: End: 11-29-2024 Thyroid profile includes TSH FT4 Thyroid profile includes TSH FT4 Lab Routine Atopic neurodermatitis 1 Occurrences starting 11/30/2023 until 11/29/2024 [facility] Work Phone: Comment on above: 1 Occurrences starti ng 11/30/2023 until 11/29/2024 Thyroid profile includes TSH FT4 Thyroid profile includes TSH FT4 Lab Routine Atopic neurodermatitis 11/30/2023 3:55 PM EDT [facility] URINALYSIS, REFLEX MICROSCOPIC URINALYSIS, REFLEX MICROSCOPIC Lab Routine Right flank pain Ordered: 07/08/2024 [facility] Work Phone: Comment on above: Ordered: 07/08/2024 Vaginitis Gram Stain For Bacterial Vaginosis + Yeast Vaginitis Gram Stain For Bacterial Vaginosis + Yeast Microbiology Routine Vaginal discharge Ordered: 09/21/2024 [facility] [facility] Work Phone: Comment on above: Ordered: 09/21/2024 Vaginitis Panel PCR Vaginitis Pa dorian PCR Microbiology Routine Unprotected sexual intercourse 10/24/2024 2:51 PM [facility]T [facility] Immunization Date Immunization Notes Care Provider Gavni jiang 11-30-2023 tetanus toxoid, redu mami diphtheria toxoid, and acellular pertussis vaccine, adsorbed Kalyn Karolyi DO Work Phone: [facility] 11-30-2023 Immunization, In Cli hermilo,; Translations: [Drug or medicament (substance)] Kalyn Karolyi DO Work Phone: [facility] 02-23-2021 influenza, injectabl e, quadrivalent, preservative free Kalyn Karolyi DO Work Phone: [facility] 02-23-2021 influenza virus vacc ine, unspecified formulation Kalyn [facility]olyi DO [facility] 03-16-2020 meningococcal B vacc ine, recombinant, OMV, adjuvanted Kalyn Karolyi DO Work Phone: [facility] 02-10-2020 influenza, live, intranasal, quadrivalent Kalyn Karolyi DO Work Phone: [facility] 02-10-2020 meningococcal B vacc ine, recombinant, OMV, adjuvanted Kalyn Karolyi DO Work Phone: [facility] 02-10-2020 meningococcal oligosaccharide (groups A, C, Y and W-135) diphtheria toxoid conjugate vaccine (MCV4O) Kalyn Karolyi DO Work Phone: [facility] 02-13-2018 Human Papillomavirus 9-valent vaccine Kalyn Karolyi DO Work Phone: [facility] 02-13-2018 influenza, injectabl e, quadrivalent, preservative free Kalyn Karolyi DO Work Phone: [facility] 02-13-2017 Human Papillomavirus 9-valent vaccine Kalyn Karolyi DO Work Phone: [facility] 02-13-2017 influenza, injectabl e, quadrivalent, preservative free Kalyn Karolyi DO Work Phone: [facility] 06-11-2015 influenza virus vacc ine, unspecified formulation Kalyn Karolyi DO Work Phone: [facility] 03-23-2015 influenza virus vacc ine, unspecified formulation Kalyn Karolyi DO Work Phone: [facility] 03-23-2015 meningococcal oligosaccharide (groups A, C, Y and W-135) diphtheria toxoid conjugate vaccine (MCV4O) Kalyn Karolyi DO Work Phone: [facility] 12-02-2013 tetanus toxoid, redu mami diphtheria toxoid, and acellular pertussis vaccine, adsorbed Kalyn Karolyi DO Work Phone: [facility] 10-23-2012 hepatitis A vaccine, adult dosage Kalyn Karolyi DO Work Phone: [facility] 01-17-2012 hepatitis A vaccine, adult dosage Kalyn Karolyi DO Work Phone: [facility] 10-22-2007 diphtheria, tetanus toxoids and acellular pertussis vaccine Kalyn Karolyi DO Work Phone: [facility] 10-22-2007 measles, mumps and rubella virus vaccine Kalyn Karolyi DO Work Phone: [facility] 10-22-2007 poliovirus vaccine, inactivated Kalyn Karolyi DO Work Phone: [facility] 10-22-2007 varicella virus vaccine Trac y Karolyi DO Work Phone: [facility] 02-04-2006 influenza virus vacc ine, unspecified formulation Kalyn Karolyi DO Work Phone: [facility] 04-20-2005 diphtheria, tetanus toxoids and acellular pertussis vaccine Kalyn Karolyi DO Work Phone: [facility] 01-19-2005 haemophilus influenz ae type b vaccine, conjugate unspecified formulation Kalyn Karolyi DO Work Phone: [facility] 01-19-2005 measles, mumps and rubella virus vaccine Kalyn Karolyi DO Work Phone: [facility] 10-21-2004 pneumococcal conjuga te vaccine, 13 valent Kalyn Karolyi DO Work Phone: [facility] 10-21-2004 varicella virus vaccine Trac y Karolyi DO Work Phone: [facility] 07-16-2004 pneumococcal conjuga te vaccine, 13 valent Kalyn Karolyi DO Work Phone: [facility] 04-28-2004 diphtheria, tetanus toxoids and acellular pertussis vaccine Kalyn Karolyi DO Work Phone: [facility] 04-28-2004 haemophilus influenz ae type b vaccine, conjugate unspecified formulation Kalyn Karolyi DO Work Phone: [facility] 04-28-2004 hepatitis B vaccine, pediatric or pediatric/adolescent dosage Kalyn Karolyi DO Work Phone: [facility] 04-28-2004 poliovirus vaccine, inactivated Kalyn Karolyi DO Work Phone: [facility] 03-15-2004 diphtheria, tetanus toxoids and acellular pertussis vaccine Kalyn Karolyi DO Work Phone: [facility] 03-15-2004 haemophilus influenz ae type b vaccine, conjugate unspecified formulation Kalyn Karolyi DO Work Phone: [facility] 03-15-2004 hepatitis B vaccine, pediatric or pediatric/adolescent dosage Kalyn Karolyi DO Work Phone: [facility] 03-15-2004 pneumococcal conjuga te vaccine, 13 valent Kalyn Karolyi DO Work Phone: [facility] 03-15-2004 poliovirus vaccine, inactivated Kalyn Karolyi DO Work Phone: [facility] 01-06-2004 diphtheria, tetanus toxoids and acellular pertussis vaccine Kalyn Karolyi DO Work Phone: [facility] 01-06-2004 haemophilus influenz ae type b vaccine, conjugate unspecified formulation Kalyn Karolyi DO Work Phone: [facility] 01-06-2004 hepatitis B vaccine, pediatric or pediatric/adolescent dosage Kalyn Karolyi DO Work Phone: [facility] 01-06-2004 pneumococcal conjuga te vaccine, 13 valent Kalyn Karolyi DO Work Phone: [facility] 01-06-2004 poliovirus vaccine, inactivated Kalyn Karolyi DO Work Phone: [facility] 2003 hepatitis B vaccine, pediatric or pediatric/adolescent dosage Kalyn Karolyi DO Work Phone: [facility] Payers Date Payer Category Payer Self-pay 2019 Managed Care Other (unspecified) [id number] 2018 Private Health Insurance [id number] 2018 Unknown 2003 Unknown [id number] 2003 Unknown [id number] [id number] 2003 Unknown [id number] [id number] 2003 Unknown [id number] [id number] 2003 Unknown [id number] [id number] 2003 Unknown [id number] 2.16.840.1.291810.3.579.2.1286 2003 Unknown [id number] 2.16.840.1.529506.3.579.2.1286 2003 Unknown [id number] 2.16.840.1.328739.3.579.2.1259 2003 Unknown [id number] 2.16.840.1.754490.3.579.2.1259 2003 Unknown [id number] 2.16.840.1.030911.3.579.2.1259 2003 Unknown [id number] 2.16.840.1.416058.3.579.2.1259 2003 Unknown [id number] 2.16.840.1.568454.3.579.2.1243 2003 Unknown [id number] 2.16.840.1.774783.3.579.2.1243 2003 Unknown [id number] 2.16.840.1.592620.3.579.2.1243 2003 Unknown [id number] 2.16.840.1.359019.3.579.2.1286 2003 Unknown [id number] 2.16.840.1.730315.3.579.2.1286 2003 Unknown [id number] 2.16.840.1.343143.3.579.2.1286 1973 Unknown [id number] 2.16.840.1.640557.3.579.2.593 1973 Unknown [id number] 2.16.840.1.345482.3.579.2.593 1959 Unknown [id number] Unknown [id number] [id number] Unknown [id number] [id number] Social History Date Type Detail Facility [facility] Start: 06-04-2024 End: 08-22-2024 Tobacco smoking consumption unknown [facility] Start: 06-03-2020 End: 03-16-2024 History of Social function [facility] Start: 06-03-2020 End: 03-16-2024 Alcohol Use Disorder Identification Test - Consumption [AUDIT-C] How often to you hav e a drink containing alcohol? Monthly or less [facility] How many standard dr inks containing alcohol do you have on a typical day? 3 or 4 [facility] How often do you hav e 6 or more drinks on 1 occasion? Never [facility] Start: 2003 Sex assigned at Not on file [facility] Start: 11-25-2014 End: 03-16-2024 Sex Female (finding) [facility] Start: 04-05-2024 End: 10-24-2024 Tobacco smoking status NHIS Ex-smoker [facility] Start: 01-23-2024 History of tobacco use Current smoker [facility] Start: 01-23-2024 History of tobacco use Cigarette Smoker [facility] Start: 04-05-2024 End: 10-24-2024 Tobacco use and exposure Smokeless tobacco non-user [facility] Start: 04-05-2024 End: 10-24-2024 Alcoholic beverage intake Current drinker of alcohol (finding) [facility] National Score (1-10 0), lower number is lower risk 80 [facility] Start: 04-05-2024 End: 10-24-2024 Alcohol Comment socially [facility] Tobacco smoking status No Smokin g Status Entered [facility] Has the [employer], [employer], or [employer] threatened to shut off services in your home in past 12Mo No [facility] Are you now , , , , never or living with a partner? Never [facility] Do you feel stress - tense, restless, nervous, or anxious, or unable to sleep at night because your mind is troubled all the time - these days [OSQ] Very much [facility] Start: 02-13-2018 End: 11-19-2022 Tobacco smoking status [facility] Never smoked tobacco [facility] Start: 06-19-2024 Alcoholic beverage intake Ex-drinker (finding) [facility] Start: 2003 Sex Assigned At Female [facility] Start: 10-24-2024 Tobacco smoking status HIIS Smokes tobacco daily [facility] Work Phone: Functional Status Date Assessment Result Facility 04-20-2024 Functional Status N/A [facility] Functional observable [facility] Mental Status Date Assessment Result Facility 12-17-2021 Cognitive functions 74002:[id number] [facility] Clinical Notes 12-21-2021 to 10-28-2024 Telephone Encounter - Hailey Kearns RN - 10/28/2024 9:29 AM EDTTelephone Encounter - Hailey Kearns RN - 10/28/2024 9:29 AM EDTTelephone Encounter - Hailey Kearns RN - 10/28/2024 8:33 AM EDT Note Date & Type Note Facility 10-28-2024 Miscellaneous Notes lvm to call office/appt today at 115 for reswab due to insufficient cells on vnap documented in this encounter [facility] 10-28-2024 Telephone encounter Note lvm to call office/appt today at 115 for reswab due to insufficient cells on vnap [facility] 10-28-2024 Miscellaneous Notes having discharge and odor; vnap says indeterminate. wondering if needs another swab or if you could send something in Really should have another swab unfortunately documented in this encounter [facility] 10-28-2024 Telephone encounter Note having discharge and odor; vnap says indeterminate. wondering if needs another swab or if you could send something in [facility] 10-28-2024 Telephone encounter Note Really should have another swab unfortunately [facility] 10-25-2024 History of Presen t illness Narrative Subjective Patient ID: Travon Stallworth is a 19 y.o. female. They present today with a chief complaint of was here yesterday, wants covid test. History of Present Illness C/O continued sore throat that started after oral sex with new partner. Yesterday had STI testing done with [facility], no results yet. Was also seen in Urgent care, strep testing negative. Wanted checked for Covid today. Past Medical History Allergies as of 10/25/2024 - Reviewed 10/25/2024 Allergen Reaction Noted Ciprofloxacin Other and Palpitations 04/05/2024 Prescriptions Prior to Admission[1] Medical History[2] Surgical History[3] reports that she has been smoking cigarettes. She has never used smokeless tobacco. Review of Systems Review of Systems Constitutional: Negative. HENT: Positive for sore throat. Respiratory: Negative. Cardiovascular: Negative. Genitourinary: Negative. Musculoskeletal: Negative. Neurological: Negative. Psychiatric/Behavioral: Negative. Objective Vitals: 10/25/24 0920 BP: (!) 136/92 Pulse: 85 Resp: 18 Temp: 37.1 C (98.8 F) SpO2: 99% Patient's last menstrual period was 10/17/2024 (approximate). Physical Exam Constitutional: Appearance: Normal appearance. HENT: Right Ear: Tympanic membrane, ear canal and external ear normal. Left Ear: Tympanic membrane, ear canal and external ear normal. Nose: Nose normal. Mouth/Throat: Pharynx: Oropharyngeal exudate (posterior pharynx) and posterior oropharyngeal erythema present. Eyes: Pupils: Pupils are equal, round, and reactive to light. Cardiovascular: Rate and Rhythm: Normal rate and regular rhythm. Pulmonary: Effort: Pulmonary effort is normal. Breath sounds: Normal breath sounds. Musculoskeletal: General: Normal range of motion. Cervical back: Normal range of motion and neck supple. Skin: General: Skin is warm and dry. Capillary Refill: Capillary refill takes less than 2 seconds. Neurological: General: No focal deficit present. Mental Status: She is alert and oriented to person, place, and time. Psychiatric: Mood and Affect: Mood normal. Behavior: Behavior normal. Thought Content: Thought content normal. Judgment: Judgment normal. Procedures Point of Care Test & Imaging Results from this visit Results for orders placed or performed in visit on 10/25/24 POCT Covid-19 Rapid Antigen Result Value Ref Range POC SHAHRAM-COV-2 AG Presumptive negative test for SARS-CoV-2 (no antigen detected) Presumptive negative test for SARS-CoV-2 (no antigen detected) Imaging No results found. Cardiology, Vascular, and Other Imaging No other imaging results found for the past 2 days Diagnostic study results (if any) were reviewed by Sadie Lombardo APRN-AXEL. Assessment/Plan Allergies, medications, history, and pertinent labs/EKGs/Imaging reviewed by LYNSEY Donohue. Medical Decision Making Signs and symptoms consistent with acute viral pharyngitis without evidence of EVENT STAFF, mono, deep neck infection, or sepsis. Negative Rapid strep in office. Will treat with supportive measures. Patient is encouraged to return to clinic if symptoms worsen and will otherwise follow with PCP. Patient had STD testing per [facility] yesterday, due to high risk sexual behavior. Deferring treatment if needed to Gynecology since testing completed there. Discussed importance of safe sexual practices with every sexual encounter: condom use, abstinence Orders and Diagnoses Diagnoses and all orders for this visit: Sore throat Suspected COVID-19 virus infection - POCT Covid-19 Rapid Antigen Medical Admin Record Patient disposition: Home Electronically signed by LYNSEY Donohue 9:44 AM [1] (Not in a hospital admission) [2] No past medical history on file. [3] No past surgical history on file. documented in this encounter [facility] Work Phone: 10-25-2024 Instructions LYNSEY Donohue - 10/25/2024 9:20 AM EDT Signs and symptoms consistent with acute viral pharyngitis without evidence of EVENT STAFF, mono, deep neck infection, or sepsis. Negative Rapid strep in office. Will treat with supportive measures. Patient is encouraged to return to clinic if symptoms worsen and will otherwise follow with PCP. Patient had STD testing per [facility] yesterday, due to high risk sexual behavior. Deferring treatment if needed to Gynecology since testing completed there. Discussed importance of safe sexual practices with every sexual encounter: condom use, abstinence documented in this encounter [facility] Work Phone: 10-24-2024 History of Presen t illness Narrative Chief Complaint: Chief Complaint Patient presents with New Patient new patient first annual with pap had unprotected intercourse two days ago, wondering about plan b wondering about urine , urine culture uti questioning control History of Present Illness: Ms. Travon Stallworth is a 19 y.o. who presents on 10/24/2024 for a routine, well-woman, exam. She reports that this week she had unprotected intercourse multiple times. She took plan B two days ago and then had unprotected intercourse yesterday. Past Medical History: Diagnosis Date Anxiety Borderline personality disorder ([facility]) Depression Hypertension Hypothyroidism Tachycardia OB History 0 Para 0 Term 0 0 AB 0 Living 0 SAB 0 IAB 0 Ectopic 0 Multiple 0 Live Births 0 Gynecologic History: Menarche: 10 Last menstrual period: Patient's last menstrual period was 10/13/2024 (within days). Cycle frequency: every 28-30 days Cycle length: 3-4 days Sexual orientations: men History of STIs: no Contraception: none HPV vaccination hx: yes History of abnormal pap: n/a Last pap smear (cervical cancer screening starts at age 21): n/a No past surgical history on file. Social History Socioeconomic History Marital status: Single Spouse name: Not on file Number of children: Not on file Years of education: Not on file Highest education level: Not on file Occupational History Not on file Tobacco Use Smoking status: Former Current packs/day: 0.50 Average packs/day: 0.5 packs/day for 0.8 years (0.4 ttl pk-yrs) Types: Cigarettes Start date: 01/2024 Smokeless tobacco: Never Vaping Use Vaping status: Every Day Substances: Nicotine, Flavoring Devices: Disposable Substance and Sexual Activity Alcohol use: Yes Comment: socially Drug use: Never Sexual activity: Yes Partners: Male control/protection: Condom Other Topics Concern Caffeine Use No Social History Narrative Not on file Social Drivers of Health Financial Resource Strain: Patient Declined (05/05/2024) Received from [facility] Overall Financial Resource Strain (CARDIA) Difficulty of Paying Living Expenses: Patient declined Food Insecurity: No Food Insecurity (06/19/2024) Hunger Screening Food Insecurity - Worry: Never True Food Insecurity - Inability: Never True Transportation Needs: No Transportation Needs (05/05/2024) Received from [facility] PRAPARE - Transportation Lack of Transportation (Medical): No Lack of Transportation (Non-Medical): No Physical Activity: Inactive (05/05/2024) Received from [facility] Exercise Vital Sign Days of Exercise per Week: 0 days Minutes of Exercise per Session: 0 min Stress: Stress Concern Present (05/05/2024) Received from [facility] [employer] [place] [facility] [employer] - Occupational Stress Questionnaire Feeling of Stress : Very much Social Connections: Unknown (05/05/2024) Received from [facility] Social Connection and Isolation Panel [NHANES] Frequency of Communication with Friends and Family: Patient declined Frequency of Social Gatherings with Friends and Family: Twice a week Attends Scientology Services: Patient declined Active Member of Clubs or Organizations: No Attends Club or Organization Meetings: Patient declined Marital Status: Never Interpersonal Safety: Not on file Housing Instability: Unknown (05/05/2024) Received from [facility] Housing Stability Vital Sign Unable to Pay for Housing in the Last Year: Patient declined Number of Times Moved in the Last Year: Not on file Homeless in the Last Year: Not on file Family History Problem Relation Age of Onset Atrial fibrillation Maternal Grandmother Hypertension Father Mental illness Father Hypothyroidism Mother Mental illness Mother Hyperthyroidism Brother Depression Brother Learning disabilities Brother Mental illness Brother Current Outpatient Medications on File Prior to Visit Medication Sig Dispense Refill ARIPiprazole (ABILIFY) 2 mg tablet Take 1 tablet (2 mg total) by mouth. FLUoxetine (PROzac) 10 mg capsule Take 1 capsule (10 mg total) by mouth in the morning. hydrOXYzine (ATARAX) 25 mg tablet Take 1 tablet (25 mg total) by mouth as needed in the morning and 1 tablet (25 mg total) as needed in the evening. levothyroxine (SYNTHROID, LEVOTHROID) 25 MCG tablet Take 1 tablet (25 mcg total) by mouth in the morning. No current facility-administered medications on file prior to visit. Ciprofloxacin Review of Systems Review of Systems Constitutional: Negative for chills and fever. HENT: Negative. Eyes: Negative for photophobia and visual disturbance. Respiratory: Negative for chest tightness and shortness of breath. Cardiovascular: Negative for chest pain and palpitations. Gastrointestinal: Negative for abdominal distention and abdominal pain. Endocrine: Negative. Genitourinary: Positive for dysuria. Negative for difficulty urinating, dyspareunia, genital sores, menstrual problem, pelvic pain, vaginal bleeding and vaginal discharge. Musculoskeletal: Negative for arthralgias and back pain. Skin: Negative. Allergic/Immunologic: Negative. Neurological: Negative for dizziness and light-headedness. Hematological: Negative for adenopathy. Does not bruise/bleed easily. Psychiatric/Behavioral: Negative for agitation and behavioral problems. Physical Exam Blood pressure 133/78, height 173.4 cm (5' 8.27 ), weight 71.1 kg (156 lb 12.8 oz), last menstrual period 10/13/2024, not currently . Constitutional: She is oriented to person, place, and time and well-developed, well-nourished, and in no distress. Psychiatric: Mood, memory, affect and judgment normal. Neurological: Pleasant and oriented. HENT: Neck normal in appearance. Moist mucus membranes. Anicteric sclera. Normocephalic. Cardiovascular: No JVD. No lower extremity edema. Pulmonary/Chest: Effort normal. No respiratory distress. Skin: Skin is warm and dry. No rash noted. No pallor. Abdomen: soft, non-tender, and non-distended. Pelvic: External genitalia: normal general appearance Urinary system: urethral meatus normal Vaginal: normal mucosa without prolapse or lesions Pelvic floor tenderness: no Cervix: normal appearance and thin prep PAP obtained Adnexa: normal bimanual exam Uterus: normal size, contour, position, consistency, mobility, non-tender Anus: Normally situated without hemorrhoids. Assessment and Plan: Ms. Travon Stallworth is a 19 y.o. with no concerns at today's routine, well-woman, exam. Well woman exam Normal breast and pelvic exam Unprotected intercourse Patient took Plan B two days ago but then had unprotected intercourse yesterday. She is on day 13 of her cycle. She is planning to take Plan B again. It is unknown if repeat dosing is beneficial but I agree it would not be harmful and ok to take. STI screening obtained Contraception management After discussing multiple options the patient is interested in the pill Tanvi Sommer MD 10/24/24 2:49 PM documented in this encounter [facility] 10-24-2024 History of Presen t illness Narrative Subjective Patient ID: Travon Stallworth is a 19 y.o. female. They present today with a chief complaint of Sore Throat (Sore throat x 2 days). History of Present Illness Patient presents for evaluation of sore throat that has been present for the past 2 days. Patient states she has also had chills, body aches, nasal congestion, postnasal drainage, right greater than left ear pressure and cough. She denies any fevers, headaches, runny nose, wheezing. Denies history of asthma. She has not attempted any treatment prior to arrival. Sore Throat Associated symptoms include congestion and coughing. Pertinent negatives include no ear pain (R>L ear pressure), headaches or shortness of breath. Past Medical History Allergies as of 10/24/2024 - Reviewed 10/24/2024 Allergen Reaction Noted Ciprofloxacin Other and Palpitations 04/05/2024 Prescriptions Prior to Admission[1] Medical History[2] Surgical History[3] reports that she has been smoking cigarettes. She has never used smokeless tobacco. Review of Systems Review of Systems Constitutional: Positive for chills. Negative for fever. HENT: Positive for congestion, postnasal drip and sore throat. Negative for ear pain (R>L ear pressure) and rhinorrhea. Respiratory: Positive for cough. Negative for chest tightness, shortness of breath and wheezing. Musculoskeletal: Positive for myalgias. Neurological: Negative for headaches. Objective Vitals: 10/24/24 0851 BP: 133/82 Pulse: 76 Resp: 16 Temp: 37 C (98.6 F) SpO2: 98% Patient's last menstrual period was 10/17/2024 (approximate). Physical Exam Vitals reviewed. Constitutional: General: She is not in acute distress. Appearance: Normal appearance. She is ill-appearing. HENT: Right Ear: Tympanic membrane, ear canal and external ear normal. Left Ear: Tympanic membrane, ear canal and external ear normal. Nose: Congestion present. No rhinorrhea. Mouth/Throat: Mouth: Mucous membranes are moist. Pharynx: Postnasal drip present. No pharyngeal swelling, oropharyngeal exudate or posterior oropharyngeal erythema. Tonsils: No tonsillar exudate or tonsillar abscesses. Cardiovascular: Rate and Rhythm: Normal rate and regular rhythm. Pulses: Normal pulses. Heart sounds: Normal heart sounds. Pulmonary: Effort: Pulmonary effort is normal. No respiratory distress. Breath sounds: Normal breath sounds. No wheezing, rhonchi or rales. Lymphadenopathy: Cervical: Cervical adenopathy present. Neurological: Mental Status: She is alert and oriented to person, place, and time. Procedures Point of Care Test & Imaging Results from this visit Results for orders placed or performed in visit on 10/24/24 POCT SPOTFIRE R/ST Panel Mini w/Strep A ([email or web address]) manually resulted Result Value Ref Range POC Group A Strep, PCR Negative Negative POC Respiratory Syncytial Virus PCR Negative Negative POC Influenza A Virus PCR Negative Negative POC Influenza B Virus PCR Negative Negative POC Human Rhinovirus PCR Negative Negative Imaging No results found. Cardiology, Vascular, and Other Imaging No other imaging results found for the past 2 days Diagnostic study results (if any) were reviewed by Fabby Bo PA-C. Assessment/Plan Allergies, medications, history, and pertinent labs/EKGs/Imaging reviewed by Fabby Bo PA-C. Medical Decision Making MDM: History and examination consistent with viral URI. Given presenting symptoms, spotfire testing completed; this was negative for strep, influenza, RSV and rhinovirus. Reassured there are no signs of pneumonia, sinusitis, otitis or other bacterial etiology. Plan at this time is supportive measures and symptomatic care at home; recommend Tylenol and motrin for pain relief and sudafed for nasal congestion. Advised to go to ER if worsens, otherwise follow with pcp. Patient verbalized understanding and agrees with plan. Orders and Diagnoses Diagnoses and all orders for this visit: Viral URI Sore throat - POCT SPOTFIRE R/ST Panel Mini w/Strep A ([email or web address]) manually resulted Medical Admin Record Patient disposition: Home Electronically signed by Fabby Bo PA-C 9:17 AM [1] (Not in a hospital admission) [2] No past medical history on file. [3] No past surgical history on file. documented in this encounter [facility] Work Phone: 10-13-2024 Miscellaneous Notes Yvan 06/19/24 documented in this encounter [facility] 10-13-2024 Telephone encounter Note Yvan 06/19/24 [facility] 09-21-2024 History of Presen t illness Narrative Subjective Patient ID: Travon Stallworth is a 18 y.o. female. They present today with a chief complaint of Difficulty Urinating. History of Present Illness Patient presents today for evaluation for possible urinary tract infection. She states she is having burning with urination that has been present since yesterday. She also admits to vaginal discharge with a different type of odor as well as vaginal irritation and chills. She states she feels burning to entire abdomen and chest and back at times. She took Tums and this didn't help so she doesn't feel it can be heartburn. She reports her last menstrual cycle was a month ago and she is due to start soon. She denies any new recent sexual partners or worries for STI. She did have recent negative testing in June for this. In June however she did test positive for BV. She admits to slight increased urinary frequency. Denies any fevers, hematuria, vaginal itching, rashes or sores, nausea, vomiting, diarrhea, constipation, cough, dyspnea. Difficulty Urinating Associated symptoms: abdominal pain (cramping and burning) and vaginal discharge Associated symptoms: no fever, no nausea and no vomiting Past Medical History Allergies as of 09/21/2024 - Reviewed 09/21/2024 Allergen Reaction Noted Ciprofloxacin Other and Palpitations 04/05/2024 Prescriptions Prior to Admission[1] Medical History[2] Surgical History[3] Review of Systems Review of Systems Constitutional: Positive for chills. Negative for fever. Respiratory: Negative for cough and shortness of breath. Gastrointestinal: Positive for abdominal pain (cramping and burning). Negative for blood in stool, constipation, diarrhea, nausea and vomiting. Genitourinary: Positive for dysuria, frequency and vaginal discharge. Negative for genital sores, hematuria, urgency and vaginal pain. Objective Vitals: 09/21/24 0851 BP: 127/83 Pulse: 69 Resp: 16 Temp: 36.8 C (98.3 F) SpO2: 98% Patient's last menstrual period was 08/21/2024 (approximate). Physical Exam Vitals reviewed. Constitutional: General: She is not in acute distress. Appearance: She is not ill-appearing. Cardiovascular: Rate and Rhythm: Normal rate and regular rhythm. Heart sounds: Normal heart sounds. Pulmonary: Effort: Pulmonary effort is normal. No respiratory distress. Breath sounds: Normal breath sounds. Chest: Chest wall: Tenderness present. Comments: Lower sternal tenderness to palpation Abdominal: General: Abdomen is flat. Bowel sounds are normal. Palpations: Abdomen is soft. Tenderness: There is abdominal tenderness (diffuse). There is no right CVA tenderness, left CVA tenderness, guarding or rebound. Genitourinary: Comments: Declined, patient self swabs Musculoskeletal: Comments: Diffuse paraspinal muscular tenderness to palpation Neurological: Mental Status: She is alert. Procedures Point of Care Test & Imaging Results from this visit Results for orders placed or performed in visit on 09/21/24 POCT UA Automated manually resulted Result Value Ref Range POC Color, Urine Straw Straw, Yellow, Light-Yellow POC Appearance, Urine Clear Clear POC Glucose, Urine NEGATIVE NEGATIVE mg/dl POC Bilirubin, Urine NEGATIVE NEGATIVE POC Ketones, Urine NEGATIVE NEGATIVE mg/dl POC Specific Sunshine, Urine 1.020 1.005 - 1.035 POC Blood, Urine NEGATIVE NEGATIVE POC PH, Urine 6.0 No Reference Range Established PH POC Protein, Urine NEGATIVE NEGATIVE mg/dl POC Urobilinogen, Urine 0.2 0.2, 1.0 EU/DL Poc Nitrite, Urine NEGATIVE NEGATIVE POC Leukocytes, Urine NEGATIVE NEGATIVE POCT , urine manually resulted Result Value Ref Range Preg Test, Ur Negative Negative POCT BV Blue Rapid - Bacterial Vaginitis manually resulted Result Value Ref Range POC Bacterial Vaginitis (Rapid) Negative Negative Imaging No results found. Cardiology, Vascular, and Other Imaging No other imaging results found for the past 2 days Diagnostic study results (if any) were reviewed by Fabby Bo PA-C. Assessment/Plan Allergies, medications, history, and pertinent labs/EKGs/Imaging reviewed by Fabby Bo PA-C. Medical Decision Making Patient presents for complaints of dysuria and vaginal discharge. Urinalysis ran during today's visit was negative for leukocytes, nitrites and blood. Rapid BV testing was negative. Send out testing for BV and yeast collected and is pending today. We discussed we would reach out with any abnormal findings for treatment if needed. Urine test was negative. We did discuss the limitations of what we are able to assess for here through urgent care and that if her symptoms continue or worsen she should present to the emergency room for further evaluation, or to follow-up with her primary care provider or [facility] and blocker aid labor. Patient verbalized understanding and was agreeable with this plan. Orders and Diagnoses Diagnoses and all orders for this visit: Vaginal discharge - POCT BV Blue Rapid - Bacterial Vaginitis manually resulted - Vaginitis Gram Stain For Bacterial Vaginosis + Yeast Dysuria - POCT UA Automated manually resulted - Urine Culture - POCT , urine manually resulted Medical Admin Record Patient disposition: Home Electronically signed by Fabby Bo PA-C 10:21 AM [1] (Not in a hospital admission) [2] No past medical history on file. [3] No past surgical history on file. documented in this encounter [facility] Work Phone: 08-29-2024 History of Presen t illness Narrative Anayeli Carnes is a 18-year-old female, otherwise healthy, presenting with concerns about elevated blood pressure readings and potential . Travon reports an elevated blood pressure reading of 160/110 at work, which decreased to 140/xx after a few minutes of rest. She notes that her blood pressure readings are consistently lower when taken at the clinic, with a recent reading of 125/80. She does not have a home blood pressure monitor but mentions that her father's girlfriend, who has hypertension and is on injectable treatment, has one. She denies experiencing cephalalgia, chest pain, or pressure. Additionally, Travon is concerned about a potential following unprotected intercourse 2 weeks ago. She took Plan B immediately after the incident and has not yet had a menstrual period, which is due soon. She denies experiencing any bleeding since taking Plan B. She also mentions a recent visit to urgent care for streptococcal pharyngitis, for which she received treatment and is now asymptomatic. During that visit, she was tested for sexually transmitted infections, including HIV, gonorrhea, and chlamydia, all of which were negative. (No ROS findings explicitly reported in the transcript.) Objective Blood pressure 120/70, pulse 88, temperature 37.3 C (99.1 F), height 175.3 cm (5' 9.02 ), weight 70.3 kg (154 lb 15.7 oz), last menstrual period 07/30/2024, SpO2 100%. GENERAL: NAD, alert and oriented SKIN: unremarkable, no rash or skin lesions. HEAD: normocephalic EYES: PERRLA, EOMI, conjunctiva clear EARS: external ears normal, canals clear, TM's normal. NOSE/SINUSES: Nares normal. Septum midline. OROPHARYNX: lips, mucosa, and tongue normal, good dentition. No oral lesions noted. NECK: Supple, no lymphadenopathy, normal thyroid, no carotid bruits. LUNGS: Clear to auscultation bilaterally, no wheezes/rhonchi/rales. HEART: Regular rate and rhythm, no murmurs. No ectopy. EXTREMITIES: Normal, No deformities, No skin discoloration, No edema. NEURO: Awake, alert and oriented x3, cranial nerves II-XII grossly intact, normal gait, no involuntary motions Labs: - Streptococcal test: Positive - Gonorrhea and chlamydia test: Negative - test: Negative Assessment & Plan 1. Elevated blood pressure reading without diagnosis of hypertension (R03.0) Recent BP readings at work were 160/110 mmHg and 140/xx mmHg. Current BP reading in the office is 120/79 mmHg. - BP normal in office today so no concern for HTN. - Educated on normal BP fluctuations and advised monitoring BP at home using a cuff if available. 2. Missed period (N92.6) Unprotected intercourse occurred approximately two weeks ago, followed by administration of Plan B within 24 hours. No subsequent menstrual period reported. - Advised to wait until the expected date of the menstrual period. - Recommended performing an ismk-ldy-gbvrizc test if the period is delayed. - Discussed the possibility of false-negative results if testing is done too early. - Informed about legality and presence of reproductive services in [place] if needed. Dr. Antionette Benitez DO Recording using ambient [employer] software for draft documentation of the visit was discussed with the patient/authorized statement services representative; all questions welcomed and answered. Patient/authorized statement services representative agreed to proceed documented in this encounter [facility] 08-29-2024 Note HNO ID: [id number] Author: ANTIONETTE BENITEZ DO Service: ? Author Type: Physician Type: Progress Notes Filed: 10/23/2024 18:49 Note Text: Anayeli Carnes is a 18-year-old female, otherwise healthy, presenting with concerns about elevated blood pressure readings and potential . Travon reports an elevated blood pressure reading of 160/110 at work, which decreased to 140/xx after a few minutes of rest. She notes that her blood pressure readings are consistently lower when taken at the clinic, with a recent reading of 125/80. She does not have a home blood pressure monitor but mentions that her father's girlfriend, who has hypertension and is on injectable treatment, has one. She denies experiencing cephalalgia, chest pain, or pressure. Additionally, Travon is concerned about a potential following unprotected intercourse 2 weeks ago. She took Plan B immediately after the incident and has not yet had a menstrual period, which is due soon. She denies experiencing any bleeding since taking Plan B. She also mentions a recent visit to urgent care for streptococcal pharyngitis, for which she received treatment and is now asymptomatic. During that visit, she was tested for sexually transmitted infections, including HIV, gonorrhea, and chlamydia, all of which were negative. (No ROS findings explicitly reported in the transcript.) Objective Blood pressure 120/70, pulse 88, temperature 37.3 ?C (99.1 ?F), height 175.3 cm (5' 9.02 ), weight 70.3 kg (154 lb 15.7 oz), last menstrual period 07/30/2024, SpO2 100%. GENERAL: NAD, alert and oriented SKIN: unremarkable, no rash or skin lesions. HEAD: normocephalic EYES: PERRLA, EOMI, conjunctiva clear EARS: external ears normal, canals clear, TM's normal. NOSE/SINUSES: Nares normal. Septum midline. OROPHARYNX: lips, mucosa, and tongue normal, good dentition. No oral lesions noted. NECK: Supple, no lymphadenopathy, normal thyroid, no carotid bruits. LUNGS: Clear to auscultation bilaterally, no wheezes/rhonchi/rales. HEART: Regular rate and rhythm, no murmurs. No ectopy. EXTREMITIES: Normal, No deformities, No skin discoloration, No edema. NEURO: Awake, alert and oriented x3, cranial nerves II-XII grossly intact, normal gait, no involuntary motions Labs: - Streptococcal test: Positive - Gonorrhea and chlamydia test: Negative - test: Negative Assessment AND Plan 1. Elevated blood pressure reading without diagnosis of hypertension (R03.0) Recent BP readings at work were 160/110 mmHg and 140/xx mmHg. Current BP reading in the office is 120/79 mmHg. - BP normal in office today so no concern for HTN. - Educated on normal BP fluctuations and advised monitoring BP at home using a cuff if available. 2. Missed period (N92.6) Unprotected intercourse occurred approximately two weeks ago, followed by administration of Plan B within 24 hours. No subsequent menstrual period reported. - Advised to wait until the expected date of the menstrual period. - Recommended performing an yzgy-ghd-yngkzan test if the period is delayed. - Discussed the possibility of false-negative results if testing is done too early. - Informed about legality and presence of reproductive services in [place] if needed. Dr. Antionette Benitez, DO Recording using [employer] software for draft documentation of the visit was discussed with the patient/authorized statement services representative; all questions welcomed and answered. Patient/authorized statement services representative agreed to proceed [facility] 08-22-2024 Evaluation note Diagnosis Onset Date Resolution Bacterial pharyngitis acute August 22, 2024 6:24pm Possible exposure to STI acute August 22, 2024 6: 24pm [facility] Work Phone: 1(407) 768-685505-01-2025 Evaluation note* Diagnosis Onset Date Resolution Status Admit Date Bacterial pharyngitis acute August 22, 2024 6:24pm Possible exposure to STI acute August 22, 2024 6:24pm URI (upper respiratory infection) noneactive October 28, 2024 9 :08am [facility] Work Phone: 1(588) 739-781904-21-2025 History of Present illness Narrative* BRYN Courtney - 08/12/2024 9:20 AM EDT Images from the original note were not included. Chief complaint: Syncope Subjective Travon Stallworth, 18 y.o., female SEIZURE LIKE EPISODES/SYNCOPE -MRI and EEG to review -denies any recent syncope/seizure like episodes -reports they have completely subsided -continues to have some lightheadedness going from sitting to standing -lightheadedness subsides after about 10-15 minutes -she is concerned about POTS -reports she has had holter monitor in the past and was told she had tachycardia -reports some moderate imbalance -admits 1 recent fall Review of Systems Constitutional: Negative for appetite change, fatigue and fever. Respiratory: Negative for cough, shortness of breath and wheezing. Cardiovascular: Negative for chest pain, palpitations and leg swelling. Gastrointestinal: Negative for abdominal pain, constipation, diarrhea and nausea. Musculoskeletal: Negative for arthralgias, gait problem and myalgias. Neurological: Positive for light-headedness. Negative for dizziness, tremors, syncope, numbness andheadaches. Past Medical History: Diagnosis Date Anxiety Depression ([facility]) Hypothyroidism ([facility]) No past surgical history on file. No family history on file. Social History Tobacco Use Smoking status: Not on file Smokeless tobacco: Never Substance Use Topics Alcohol use: Not on file Allergies: Ciprofloxacin Vitals: 08/12/24 0921 BP: 122/82 Pulse: 71 Resp: 16 SpO2: 99% Body mass index is 22.59 kg/m . Weight: 153 lb Neurologic exam: Mental status: Awake, alert to person, place and time. Recent and remote memory are intact. Language is fluent without aphasia. Attention and concentration are normal. Fund of knowledge is appropriate for level of education. Cranial nerves: CN II: Visual acuity is normal. Visual khan full to confrontation. CN III, IV, : pupils equal round and reactive to light. Extraocular movements intact. No ptosis present. CN V: Facial sensation is normal. CN VII: Full and symmetric facial movement. CN VIII: Hearing is normal to finger rub bilaterally: CN IX and X: Palate elevates symmetrically. CN XI: Shoulder shrug is normal bilaterally. CN XII: Tongue is midline without atrophy or fasciculation. Motor: RUE Strength deltoid, , biceps , triceps , wrist extensors , wrist flexor , front desk officer strength 5/5. LUE Strength deltoid , biceps , triceps , wrist extensors , wrist flexor , front desk officer strength 5/5. RLE Strength illopsoas, quadriceps, tibialis anterior, and gastrocnemius strength 5/5. LLE Strength illopsoas, quadriceps, tibialis anterior, and gastrocnemius strength 5/5. Normal tone x4 extremities. Bulk is normal. Sensory: Sensation is intact to light touch throughout Four extremities. Reflexes: RUE biceps reflex 2+ brachioradialis reflex 2+ . LUE biceps reflex 2+ brachioradialis reflex 2+ . RLE knee reflex 2+ . LLE knee reflex 2+ . King's sign negative. Coordination: Qbtqju-xc-[id number] testing and rapid alternating movements are normal Gait: Normal Review and summary of old records: Brain MRI with and without contrast 07/23/2024: normal MRI Routine EEG 06/26/2024: normal Orthostatic vital signs at [facility] on 06/04/24: negative I have reviewed emergency department documentation from 04/21/2024 noting that the patient has had a recent history of palpitations and Holter monitor and was presenting for episodes of seizure-like activity which occurred 3 times. Patient had no prior history of seizure before this. Patient was discharged in stable condition. No imaging or admission was undertaken. Assessment/Plan Diagnoses and all orders for this visit: Seizure ([facility]) It is my impression that the patient is having seizure-like episodes. Patient has no family historyof seizure. Patient has no personal history of seizure. The patient has no history of meningitis, encephalitis, brain trauma, brain surgery for other risk factors that we can identify. No seizures asa child. Patient does mention that stress and played a significant role in her life such that she had withdrawal from college at [employer]. However, we need to exclude any potential intracranial neurological process that could be contributing to the patient's symptoms. She describes the episode of shaking of the bilateral lower extremities with high frequency and amplitude with associated confusion. Brain MRI and routine EEG were unremarkable. Seizure like episodeshave improved. She also has concerns for intermittent episodes of lightheadedness and palpitations.She reports having a holter monitor in the past that revealed tachycardia. Plan: -I reviewed brain MRI -I reviewed routine EEG -I will obtain a 2 hour EEG to assess for seizure or epileptiform activity which may explain the patient episodes and symptoms. -I will reach out to patient's court officer regarding possible tilt table test -I do not believe the patient has a candidate for antiepileptic treatment at this time. This decision is shared decision-making with the patient and family with concern that again these episodes may be nonepileptic in nature. Anxiety Patient certainly does have a substantial amount of anxiety. Certainly nonepileptic events are considered. However, this would be a diagnosis of exclusion. Plan: Continue close follow up with primary care and behavioral health No driving, tub bathing alone or swimming alone until 6 months episode free and cleared by Neurology and Cardiology. Patient is seen Cardiology at [place]. Pt has been fully educated on their diagnosis, lab results, treatment options, follow up plan, return instructions, and discussion of mental health issues documented in this [facility]03-27-2025 Telephone encounter Note* Telephone Encounter - Jill Friedman NP - 07/18/2024 9:27 AM EDT Call placed to the patient to see when her brain MRI is scheduled due to her follow up appointment to review being on Monday. Message left for the patient to return [place]. [employer] Phone: 1(921) 818-555603-27-2025 Miscellaneous Notes* Telephone Encounter - Jill Friedman NP - 07/18/2024 9:27 AM EDT Call placed to the patient to see when her brain MRI is scheduled due to her follow up appointment to review being on Monday. Message left for the patient to return [place]. documented in this [facility]03-17-2025 NoteHNO ID: [id number] Author: ANTIONETTE BENITEZ, DO Service: ? Author Type: Physician Type: Progress Notes Filed: 07/08/2024 16:26 Note Text: ASSESSMENT/PLAN: 1. Right flank pain - ICD9: 789.09, ICD10: R10.9 (primary diagnosis) -She has had 3 days of right flank pain, occurring mostly at night. Also reporting urinary frequency, intermittent dysuria. Also having new cloudy vaginal discharge. Denies any new sexual partners. Unclear cause. She may be passing a kidney stone versus right back strain/spasm. UA in office was just positive for protein. Will send out formal urinalysis and culture. Treat empirically as back pain. Recommend she take naproxen 1-2 times daily as needed. Can also take cyclobenzaprine at night. Recommend follow-up in 1 to 2 weeks if not improving. - URINALYSIS, REFLEX MICROSCOPIC - BACTERIAL CULTURE, URINE - CYCLOBENZAPRINE 10 MG TABLET 2. Vaginal discharge - ICD9: 623.5, ICD10: N89.8 -She does report new cloudy vaginal discharge, denies any new partners. Ordered vaginitis panel and test for GC. Follow-up based on labs. - RENE/TRICHOMONAS NAAT - BACTERIAL VAGINOSIS NAAT - GONORRHEA/CHLAMYDIA NAAT CC: Patient presents with: Kidney Problem: Frequent urination,burning x 4 days HPI: Travon is a 18 year old female that presents with right lower back pain, frequent urination. She started having right sided low back pain on Monday, says it happens mostly at night. She has also started feeling it on the left side. She denies radiation to the legs. She did endorse chills but no fevers. She says she has been urinating frequently. She describes it as a burning sensation; says it is intermittent. No hematuria. She denies any history of nephrolithiasis. She does endorse cloudy vaginal discharge; she does believe she is ovulating. No new partners. ROS: See HPI History: Medical history, surgical history, social history and allergies were reviewed and updated in the system. PHYSICAL EXAM: BP 137/92 Pulse 68 Temp 98.7 Wt 145 lb 4.5 oz (65.9kg) SpO2 100% LMP 06/17/2024 General Appearance: Well appearing, alert, in no acute distress, well-hydrated, well nourished.. Lungs: Lungs clear to auscultation. No wheezing, rhonchi, rales.. Heart: RRR without murmur, gallop, or rubs. No ectopy. Abdomen: Generalized abdominal tenderness without guarding or rebound. Normal bowel sounds. Mild costovertebral angle tenderness on the right, none on the left. Musculoskeletal: No spinous process tenderness. Dr. Antionette Benitez, [facility] [place]03-17-2025 History of Present illness Narrative* Antionette Benitez DO - 07/08/2024 4:00 PM EDT ASSESSMENT/PLAN: 1. Right flank pain - ICD9: 789.09, ICD10: R10.9 (primary diagnosis) -She has had 3 days of right flank pain, occurring mostly at night. Also reporting urinary frequency, intermittent dysuria. Also having new cloudy vaginal discharge. Denies any new sexual partners. Unclear cause. She may be passing a kidney stone versus right back strain/spasm. UA in office was just positive for protein. Will send out formal urinalysis and culture. Treat empirically as back pain.Recommend she take naproxen 1-2 times daily as needed. Can also take cyclobenzaprine at night. Recommend follow-up in 1 to 2 weeks if not improving. - URINALYSIS, REFLEX MICROSCOPIC - BACTERIAL CULTURE, URINE - CYCLOBENZAPRINE 10 MG TABLET 2. Vaginal discharge - ICD9: 623.5, ICD10: N89.8 -She does report new cloudy vaginal discharge, denies any new partners. Ordered vaginitis panel andtest for GC. Follow-up based on labs. - RENE/TRICHOMONAS NAAT - BACTERIAL VAGINOSIS NAAT - GONORRHEA/CHLAMYDIA NAAT CC: Patient presents with: Kidney Problem: Frequent urination,burning x 4 days HPI: Travon is a 18 year old female that presents with right lower back pain, frequent urination. She started having right sided low back pain on Monday, says it happens mostly at night. She has also started feeling it on the left side. She denies radiation to the legs. She did endorse chills but no fevers. She says she has been urinating frequently. She describes it as a burning sensation; says it is intermittent. No hematuria. She denies any history of nephrolithiasis. She does endorse cloudy vaginal discharge; she does believe she is ovulating. No new partners. ROS: See HPI History: Medical history, surgical history, social history and allergies were reviewed and updated in the system. PHYSICAL EXAM: BP 137/92 Pulse 68 Temp 98.7 Wt 145 lb 4.5 oz (65.9kg) SpO2 100% LMP 06/17/2024 General Appearance: Well appearing, alert, in no acute distress, well-hydrated, well nourished.. Lungs: Lungs clear to auscultation. No wheezing, rhonchi, rales.. Heart: RRR without murmur, gallop, or rubs. No ectopy. Abdomen: Generalized abdominal tenderness without guarding or rebound. Normal bowel sounds. Mild costovertebral angle tenderness on the right, none on the left. Musculoskeletal: No spinous process tenderness. Dr. Antionette Benitez DO [facility] Telephone encounter Note * Telephone Encounter - Ashley Warren - 07/07/2024 10:37 AM EDT Patient is coming in Monday to see Dr. Benitez. [facility] Miscellaneous Notes* Telephone Encounter - Ashley Warren - 07/07/2024 10:37 AM EDT Patient is coming in Monday to see Dr. Benitez. She [facility]'t [facility] to [facility] to [facility] Telephone encounter Note * Telephone Encounter - Stefani Jeronimo LPN - 06/27/2024 7:41 AM EST Patient phones requesting refills as follows: Last OV 05/07/2024 Requested Prescriptions Pending Prescriptions Disp Refills levothyroxine (SYNTHROID) 25 mcg tablet [Pharmacy Med Name: LEVOTHYROXINE 25 MCG TABLET] 30 tablet 2 Sig: TAKE 1 TABLET BY MOUTH EVERY DAY Please review and advise. Stefani Jeronimo LPN [facility]03-06-2025 Miscellaneous Notes* Telephone Encounter - Stefani Jeronimo LPN - 06/27/2024 7:41 AM EST Patient phones requesting refills as follows: Last OV 05/07/2024 Requested Prescriptions Pending Prescriptions Disp Refills levothyroxine (SYNTHROID) 25 mcg tablet [Pharmacy Med Name: LEVOTHYROXINE 25 MCG TABLET] 30 tablet 2 Sig: TAKE 1 TABLET BY MOUTH EVERY DAY Please review and advise. Stefani Jeronimo LPN documented in this encounterOhio[facility] History of Present illness Narrative* Ian Vasquez MD - 06/19/2024 9:00 AM EST Travon Stallworth Date of visit: 06/19/2024 Date of : 2005 Age: 18 y.o. 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 hydrOXYzine (ATARAX) 25 mg tablet Take 1 tablet (25 mg total) by mouth 2 (two) times a day as needed. levothyroxine (SYNTHROID, LEVOTHROID) 25 MCG tablet Take 1 tablet (25 mcg total) by mouth in the morning. midodrine (PROAMATINE) 5 mg tablet Take 1 tablet (5 mg total) by mouth 3 (three) times a day. 90 tablet 3 No current facility-administered medications for this visit. 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 She was had about 10 episodes since February. These are all occurred when she was sitting and then stands up. She feels dizzy and thenblacks out for a 2nd or 2. She has not had any traumatic injuries. One of the this has been witnessed by her boyfriend. When it happens, she will also feel associated palpitations and some chest pressure at times. She was dizziness at other times, mostly postural. Orthostatics have been checked in the past and were not positive. She was paroxysmal her blood pressure a bit high but she was certainly sounds like she gets stressed out when her blood pressure is checked. She does not have a chronic history of dizziness or lightheadedness and never had issues like this in high school. She played high school softball. She does not have any regular breathlessness. No orthopnea. No PND. She had an EKG done showing sinus rhythm. She wore a Holter monitor which looks relatively unremarkable. There is 1 strip where her heart he was tachycardic in the heart rate somewhat abruptly slows down. However, it is not definitively concerning for SVT. The monitor was otherwise unremarkable with no significant ectopy. Heart rate was inthe 70s. She was generally uses limited caffeine and keeps up with fluid intake. She was not had any significant change in her weight recently. Past Medical History: Diagnosis Date Anxiety Borderline personality disorder ([facility]-HCC) Depression Hypothyroidism Tachycardia No data recorded No data recorded No data recorded History reviewed. No pertinent surgical history. Family History Problem Relation Age of Onset Hypothyroidism Mother Hypertension Father Hyperthyroidism Brother Atrial fibrillation Maternal Grandmother Social History Socioeconomic History Marital status: Single Spouse name: Not on file Number of children: Not on file Years of education: Not on file Highest education level: Not on file Occupational History Not on file Tobacco Use Smoking status: Never Smokeless tobacco: Never Vaping Use Vaping status: Every Day Substances: Nicotine, Flavoring Devices: Disposable Substance and Sexual Activity Alcohol use: Not Currently Drug use: Never Sexual activity: Defer Other Topics Concern Caffeine Use No Social History Narrative Not on file Social Drivers of Health Financial Resource Strain: Patient Declined (05/05/2024) [facility] Overall Financial Resource Strain (CARDIA) Difficulty of Paying Living Expenses: Patient declined Food Insecurity: No Food Insecurity (06/19/2024) Hunger Screening Food Insecurity - Worry: Never True Food Insecurity - Inability: Never True Transportation Needs: No Transportation Needs (05/05/2024) [facility] PRAPARE - Transportation Lack of Transportation (Medical): No Lack of Transportation (Non-Medical): No Physical Activity: Inactive (05/05/2024) Re[facility] Exercise Vital Sign Days of Exercise per Week: 0 days Minutes of Exercise per Session: 0 min Stress: Stress Concern Present (05/05/2024) Re[facility] [place] [employer] Occup[employer] - Occupational Stress Questionnaire Feeling of Stress : Very much Social Connections: Unknown (05/05/2024) Re[facility] Social Connection and Isolation Panel [NHANES] Frequency of Communication with Friends and Family: Patient declined Frequency of Social Gatherings with Friends and Family: Twice a week Attends Scientology Services: Patient declined Active Member of Clubs or Organizations: No Attends Club or Organization Meetings: Patient declined Marital Status: Never Interpersonal Safety: Not on file Housing Instability: Unknown (05/05/2024) [facility] Housing Stability Vital Sign Unable to Pay for Housing in the Last Year: Patient declined Number of Times Moved in the Last Year: Not on file Homeless in the Last Year: Not on file Review of Systems Review of Systems Constitutional: Positive for chills and malaise/fatigue. HENT: Negative. Eyes: Negative. Cardiovascular: Positive for chest pain. Respiratory: Positive for shortness of breath. Endocrine: Negative. Hematologic/Lymphatic: Bruises/bleeds easily. Skin: Negative. Musculoskeletal: Positive for back pain. Gastrointestinal: Positive for constipation. Genitourinary: Negative. Neurological: Positive for dizziness, headaches, light-headedness, loss of balance and numbness. Psychiatric/Behavioral: Positive for depression. The patient is nervous/anxious. Allergic/Immunologic: Positive for environmental allergies. Vascular: Negative. CARDIOVASCULAR: Please review HPI. Physical Examination General appearance: Alert, oriented and cooperative. In no acute distress. Skin: Warm and dry to touch. Head: Normocephalic, without obvious abnormality, atraumatic. Ears, Nose, Mouth, Throat: Throat clear without erythema or exudate. Dentition intact. Eyes: Conjunctivae unremarkable, EOM intact. Neck: Neck supple, trachea midline. Respiratory: Clear to auscultation bilaterally, no use of accessory muscles. Cardiovascular: RRR with normal S1 and S2 with no murmurs. Gastrointestinal: Soft, non-tender. Bowel sounds normal. Musculoskeletal: No peripheral edema. Neurologic: Oriented to time, person and place, affect appropriate. No focal/major motor defects noted. Psychiatric: Appropriate mood, memory and judgement. VITAL SIGNS: BP 126/82 Pulse 80 Ht 173.4 cm (5' 8.25 ) Wt 69.1 kg (152 lb 6.4 oz) SpO2 97% BMI 23.00 kg/m Orders Placed or Reconciled This Encounter Medications FLUoxetine (PROzac) 10 mg capsule Sig: Take 1 capsule (10 mg total) by mouth in the morning. levothyroxine (SYNTHROID, LEVOTHROID) 25 MCG tablet Sig: Take 1 tablet (25 mcg total) by mouth in the morning. midodrine (PROAMATINE) 5 mg tablet Sig: Take 1 tablet (5 mg total) by mouth 3 (three) times a day. Dispense: 90 tablet Refill: 3 Medications Discontinued During This Encounter Medication Reason ARIPiprazole (ABILIFY) 2 mg tablet mometasone (ELOCON) 0.1 % cream IMPRESSIONS/PLAN 1. Syncope, unspecified syncope type - Echo complete W/O contrast; Future - Event Monitor (In Office); Future 2. Palpitations - Echo complete W/O contrast; Future - Event Monitor (In Office); Future Recurrent syncope/postural with postural dizziness. Associated palpitations and chest pain at time. Unremarkable heart rate in the 70s, 1 episode where heart rate abruptly slows down. Low ventricularand supraventricular ectopic burden. Anxiety/borderline personality disorder per notes Her symptoms are highly suggestive of orthostatic hypotension/neurocardiogenic symptoms that are blood pressure mediated. This is despite not having documented positive orthostatics to date. I checked orthostatics myself and there was only a drop in blood pressure 4 to 5 mmHg. She would have some mild dizziness. He was obviously raises suspicion that some of this may not be cardiac/bloodpressure mediated but her symptoms are consistently current when she was stands up and I do not have a better explanation for them. She was saw neurology in the past. I would get an echocardiogram to rule out structural heart disease Just to capture more episodes, I have placed a 21 day event monitor on her and asked her to triggerit liberally for palpitations, chest pain, dizziness, etc.. I would do this mainly just to exclude any secondary issues as 1 of the strips has not abrupt slowing of her heart rate that raises suspicion that she could have had an SVT episode. However, this has not explain her regular symptoms. I think it is reasonable to try to treat her empirically for neurocardiogenic symptoms. I talked toher about this. We went over side effects and limited problems with trying something such as midodrine. We will try this now and see if she has a response and if she does we could always increase thedose later. If not, we can bring her back in talk to her about options after the echo and event monitor are complete. TODAYS ORDERS Orders Placed This Encounter Procedures Event Monitor (In Office) Echo complete W/O contrast FOLLOW UP Return in about 3 months (around 09/16/2024). PCP: No primary care provider on file. Referring Physician: No referring provider defined for this encounter. * Kristian Mandujano RN - 06/19/2024 9:00 AM EST Pt given central scheduling's phone number, pt will schedule the echo at home. EM order placed. Pt was given the [employer] handout and investment underwriter reviewed EM information. [facility] Miscellaneous Notes* Telephone Encounter - Ashley Novak CMA - 06/18/2024 2:49 PM EST Left message for patient to remind them to bring their most current medication list with them to their appointment. [facility] Telephone encounter Note* Telephone Encounter - Ashley Novak CMA - 06/18/2024 2:49 PM EST Left message for patient to remind them to bring their most current medication list with them to their appointment. [facility]02-[facility] History of Present illness Narrative* Antionette Benitez DO - 06/11/2024 4:08 PM EST Telehealth Visit ASSESSMENT/PLAN: 1. Subclinical hypothyroidism - ICD9: 244.8, ICD10: E03.8 (primary diagnosis) -Feels like the levothyroxine is helping with her energy levels. Requested that she send us a message with a local lab fax number so that we can send an order for a TSH with T4 to the lab. Would liketo make sure that her thyroid levels are at goal at current dose of levothyroxine 25 mg daily. If suboptimal will increase dose. Follow-up based on lab results. - TSH W/REFLEX FT4 2. Vasovagal syncope - ICD9: 780.2, ICD10: R55 -She reports she is having less episodes of syncope and lightheadedness. Will continue, increase salt in diet, compression socks, increase fluids. 3. Seizure-like activity (HCC) - ICD9: 780.39, ICD10: R56.9 -She did follow-up with a neurologist who wanted to rule out epileptic activity. Had ordered MRI and EEG. Did not start any AEDs at this time since symptoms may be consistent with PNES. Recommended that she have close continue follow-up with her psychiatrist. Continue current medications. Follow-upas needed. I have communicated my name and active licensure. The patient's identity and physical location wereverified at the time of this visit. Either the patient or their legal statement services representative has been informed of the risks and benefits of -- and alternatives to -- treatment through a remote evaluation andconsents to proceed with the evaluation remotely. Provider Location: [place] Patient Location: [place] CC: Patient presents with: Syncope HPI: Travon is a 18 year old female that presents via Zoom to discuss syncope. She said that she did follow-up with a neurologist, Dr. Caceres. I reviewed notes and he wanted to rule out that her syncopal episodes were epileptic. He has her scheduled for an MRI and an EEG. Per note he was not immediately concerned that the symptoms were epileptic in nature and did not wish tostart AEDs at this time. 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 Recommended follow-up with psychiatry. Did recommend seizure precautions. She says that the levothyroxine does seem to be helping with her energy levels. She is also having less syncopal episodes. She did inquire if she could increase the dose to a higher dose. ROS: See HPI History: Medical history, surgical history, social history and allergies were reviewed and updated in the system. VIDEO PHYSICAL EXAM: General: alert and appropriate, in no distress and well-hydrated, well nourished Respiratory: breathing non-labored Chest: equal chest rise with normal respiratory effort Neurologic: no obvious deficit I spent a total of 15 minutes on the date of the service which included [id number] patient care, completing clinical documentation, obtaining and/or reviewing separately obtained history, performing a medically appropriate examination, counseling and educating the patient/family/caregiver, and ordering medications, tests, or procedures. SIGNATURE: ANTIONETTE BENITEZ DO DATE: June 11, 2024 documented in this encounterOhio[facility]02-18-2025 NoteHNO ID: [id number] Author: ANTIONETTE BENITEZ DO Service: ? Author Type: Physician Type: Progress Notes Filed: 06/11/2024 16:25 Note Text: Telehealth Visit ASSESSMENT/PLAN: 1. Subclinical hypothyroidism - ICD9: 244.8, ICD10: E03.8 (primary diagnosis) -Feels like the levothyroxine is helping with her energy levels. Requested that she send us a message with a local lab fax number so that we can send an order for a TSH with T4 to the lab. Would like to make sure that her thyroid levels are at goal at current dose of levothyroxine 25 mg daily. If suboptimal will increase dose. Follow-up based on lab results. - TSH W/REFLEX FT4 2. Vasovagal syncope - ICD9: 780.2, ICD10: R55 -She reports she is having less episodes of syncope and lightheadedness. Will continue, increase salt in diet, compression socks, increase fluids. 3. Seizure-like activity (HCC) - ICD9: 780.39, ICD10: R56.9 -She did follow-up with a neurologist who wanted to rule out epileptic activity. Had ordered MRI and EEG. Did not start any AEDs at this time since symptoms may be consistent with PNES. Recommended that she have close continue follow-up with her psychiatrist. Continue current medications. Follow-up as needed. I have communicated my name and active licensure. The patient's identity and physical location were verified at the time of this visit. Either the patient or their legal statement services representative has been informed of the risks and benefits of -- and alternatives to -- treatment through a remote evaluation and consents to proceed with the evaluation remotely. Provider Location: [place] Patient Location: [place] CC: Patient presents with: Syncope HPI: Travon is a 18 year old female that presents via Zoom to discuss syncope. She said that she did follow-up with a neurologist, Dr. Caceres. I reviewed notes and he wanted to rule out that her syncopal episodes were epileptic. He has her scheduled for an MRI and an EEG. Per note he was not immediately concerned that the symptoms were epileptic in nature and did not wish to start AEDs at this time. 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 Recommended follow-up with psychiatry. Did recommend seizure precautions. She says that the levothyroxine does seem to be helping with her energy levels. She is also having less syncopal episodes. She did inquire if she could increase the dose to a higher dose. ROS: See HPI History: Medical history, surgical history, social history and allergies were reviewed and updated in the system. VIDEO PHYSICAL EXAM: General: alert and appropriate, in no distress and well-hydrated, well nourished Respiratory: breathing non-labored Chest: equal chest rise with normal respiratory effort Neurologic: no obvious deficit I spent a total of 15 minutes on the date of the service which included [id number] patient care, completing clinical documentation, obtaining and/or reviewing separately obtained history, performing a medically appropriate examination, counseling and educating the patient/family/caregiver, and ordering medications, tests, or procedures. SIGNATURE: ANTIONETTE BENITEZ, DATE: [facility] 11[facility] History of Present illness Narrative* Myesha Caceres, - 06/04/2024 9:30 AM EST Images from the original note were not included. Chief complaint: Syncope Subjective Travon Stallworth, 18 y.o., female Patient presents today for a neurologic consult for syncope. She is accompanied by her mother. Patient states she was having episodes of syncope for a few months. She was then started on medication for her thyroid. Episodes have improved somewhat but she is still having episodes at night time. These episodes will start as a headache, she will have brain fog, dizziness and heart palpitations. Thiscauses her a lot of anxiety and is keeping her up at night. Her last syncope episode was about two weeks ago. Her mother states she spends a lot of time laying down. She notes orthostatic dizziness as well. Orthostatic vitals- laying- 134/88 HR 63 sitting- 125/91 HR 75, standing- 139/101 HR 79 Review of Systems Constitutional: Negative for appetite change, fatigue and fever. Respiratory: Negative for cough, shortness of breath and wheezing. Cardiovascular: Negative for chest pain, palpitations and leg swelling. Gastrointestinal: Negative for abdominal pain, constipation, diarrhea and nausea. Musculoskeletal: Negative for arthralgias, gait problem and myalgias. Neurological: Positive for syncope. Negative for dizziness, tremors, numbness and headaches. Past Medical History: Diagnosis Date Anxiety Depression ([facility]/HCC) Hypothyroidism (CMS/HCC) History reviewed. No pertinent surgical history. No family history on file. Social History Tobacco Use Smoking status: Not on file Smokeless tobacco: Never Substance Use Topics Alcohol use: Not on file Allergies: Ciprofloxacin Vitals: 06/04/24 0937 BP: 132/84 Pulse: 74 SpO2: 100% There is no height or weight on file to calculate BMI. weight: 144 lb 12.8 oz Neurologic exam: Mental status: Awake, alert to person, place and time. Recent and remote memory are intact. Language is fluent without aphasia. Attention and concentration are normal. Fund of knowledge is appropriate for level of education. Cranial nerves: CN II: Visual acuity is normal. Visual khan full to confrontation. CN III, IV, : pupils equal round and reactive to light. Extraocular movements intact. No ptosis present. CN V: Facial sensation is normal. CN VII: Full and symmetric facial movement. CN VIII: Hearing is normal to finger rub bilaterally: CN IX and X: Palate elevates symmetrically. CN XI: Shoulder shrug is normal bilaterally. CN XII: Tongue is midline without atrophy or fasciculation. Motor: RUE Strength deltoid, , biceps , triceps , wrist extensors , wrist flexor , front desk officer strength 5/5. LUE Strength deltoid , biceps , triceps , wrist extensors , wrist flexor , front desk officer strength 5/5. RLE Strength illopsoas, quadriceps, tibialis anterior, and gastrocnemius strength 5/5. LLE Strength illopsoas, quadriceps, tibialis anterior, and gastrocnemius strength 5/5. Normal tone x4 extremities. Bulk is normal. Sensory: Sensation is intact to light touch throughout Four extremities. Reflexes: RUE biceps reflex 2+ brachioradialis reflex 2+ . LUE biceps reflex 2+ brachioradialis reflex 2+ . RLE knee reflex 2+ . LLE knee reflex 2+ . King's sign negative. Coordination: Mkicuh-gu-mewk testing and rapid alternating movements are normal Gait: Normal Review and summary of old records: Orthostatic vital signs at [facility] on 06/04/24: negative I have reviewed emergency department documentation from 04/21/2024 noting that the patient has had a recent history of palpitations and Holter monitor and was presenting for episodes of seizure-like activity which occurred 3 times. Patient had no prior history of seizure before this. Patient was discharged in stable condition. No imaging or admission was undertaken. Assessment/Plan Diagnoses and all orders for this visit: Seizure ([facility]) It is my impression that the patient is having seizure-like episodes. Patient has no family historyof seizure. Patient has no personal history of seizure. The patient has no history of meningitis, encephalitis, brain trauma, brain surgery for other risk factors that we can identify. No seizures asa child. Patient does mention that stress and played a significant role in her life such that she had withdrawal from college at [employer]. However, we need to exclude any potential intracranial neurological process that could be contributing to the patient's symptoms. She describes the episode of shaking of the bilateral lower extremities with high frequency and amplitude with associated confusion. Plan: MRI of the brain with and without contrast to look for any seizure focus Routine EEG to assess for any epileptiform abnormalities which may be contributing the patient's symptoms I do not believe the patient has a candidate for antiepileptic treatment at this time. This decision is shared decision-making with the patient and family with concern that again these episodes may be nonepileptic in nature. Anxiety Patient certainly does have a substantial amount of anxiety. Certainly nonepileptic events are considered. However, this would be a diagnosis of exclusion. Plan: Continue close follow up with primary care and behavioral health No driving, tub bathing alone or swimming alone until 6 months episode free and cleared by Neurology and Cardiology. Patient is seen Cardiology at [place]. Patient's mother accompanied the patient tothe visit today and was understanding and agreeable with the seizure precautions and plan. Pt has been fully educated on their diagnosis, lab results, treatment options, follow up plan, return instructions, and discussion of mental health issues documented in this encounterWashington County Memorial [id number] Instructions* Patient Instructions* Antionette Benitez DO - 05/07/2024 4:48 PM EST 1) Start levothyroxine 25 mcg daily. We'll take in morning 30 minutes before eating other food or medications. 2) We'll take naproxen 500 mg as needed at bedtime for severe headaches. Can use 3-4 times per week. 3) Schedule follow-up with cardiology. 4) Follow-up virtually in one month. documented in this encounterOhio[facility]01-14-[facility]25 NoteHNO ID: [id number] Author: ANTIONETTE BENITEZ DO Service: ? Author Type: Physician Type: Progress Notes Filed: 05/07/2024 19:21 Note Text: ASSESSMENT/PLAN: 1. Vasovagal syncope - ICD9: 780.2, ICD10: R55 (primary diagnosis) 2. Sinus tachycardia - ICD9: 427.89, ICD10: R00.0 -Reviewed Holter monitor with patient and discussed that she had no significant arrhythmias and that her recorded palpitations were consistent with sinus tachycardia. She is still reporting intermittent syncopal episodes, although these typically occur when she is having bowel movements. Suspect these are vasovagal, although cannot rule out other cause such as POTS, or functional cause given history of BPD. Provided referral to cardiology so that they can evaluate and see if tilt table test is warranted. In interim, recommend he continue compression socks, increasing salt intake. Will follow-up after she sees cardiology. - CONSULT TO CARDIOLOGY 3. Subclinical hypothyroidism - ICD9: 244.8, ICD10: E03.8 -She does report multiple nonspecific symptoms including daily headaches, syncopal episodes, tremors, cold hands and feet, tinnitus, irregular bowel movements. She did have mild elevation of her TSH 6.6. Discussed that symptoms could be related to subclinical hypothyroidism. Will start levothyroxine 25 mcg daily. Recommended follow-up in 4 weeks virtually. - LEVOTHYROXINE 25 MCG TABLET 4. Cervicogenic headache - ICD9: 784.0, ICD10: G44.86 -She reports daily headaches which I suspect are cervicogenic versus occipital neuralgia. Will start with naproxen 500 mg nightly 3-4 times per week as needed. If not effective can consider other options such as gabapentin/pregabalin versus duloxetine. Will follow-up in 4 weeks. - NAPROXEN 500 MG TABLET 5. Borderline personality disorder (HCC) - ICD9: 301.83, ICD10: F60.3 -She is following with psychiatry and is taking time off for this semester and next. She did recently stop her aripiprazole. Recommended continuing fluoxetine and hydroxyzine and following up for appropriate medication regimen. CC: Patient presents with: Follow Up: With blood pressure Also for heart palpitations Passed out 2 days ago HPI: Travon is a 18 year old female that presents with follow-up for palpitations, syncopal episodes, erratic blood pressures. She says that her blood pressures have still been quite erratic and at times when she is measured it has been in the 170s. She says that typically when she has significant palpitations or anxiety she will check her blood pressure and notes that it is significant elevated. She did do the Holter monitor which not show any significant arrhythmias and her activity or events were consistent with sinus tachycardia. She has reported multiple episodes of passing out when she is on the toilet and defecating. She says this typically occurs in the evenings. She denies syncopal episodes outside of the restroom. He is using compression socks to help with her symptoms, has not added salt to her diet. She is reporting multiple other symptoms including intermittent lightheadedness, pain in bilateral calves and feet, tremors, cold hands and feet, headaches, ringing in the ears, upset stomach, irregular bowel movements, poor and foggy memory. She says that she has daily headaches, typically posterior and left-sided. Do not change with position or worsen with Valsalva. ROS: See HPI History: Medical history, surgical history, social history and allergies were reviewed and updated in the system. PHYSICAL EXAM: BP 100/60 Pulse 93 Ht 5' 9.016 (1.75m) Wt 141 lb 5 oz (64.1kg) SpO2 99% LMP 03/18/2024 BMI 20.86 kg/(m2). General Appearance: Well appearing, alert, in no acute distress, well-hydrated, well nourished.. Ears: External ears normal, canals clear. Nose/Sinuses: Nares normal, septum midline, mucosa normal, no drainage or sinus tenderness. Oropharynx: Lips, mucosa, and tongue normal, teeth and gums normal, oropharynx normal. Neck: Mild tenderness to palpation of left trapezius insertion, mild paraspinal spasm. Lungs: Lungs clear to auscultation. No wheezing, rhonchi, rales.. Heart: RRR without murmur, gallop, or rubs. No ectopy. Neurologic: No gross focal deficits on exam, normal reflexes, mild tenderness and aggravation of headaches with palpation of left trapezius insertion/left occiput. Dr. Antionette Benitez, [facility]01-14-2025 History of Present illness Narrative* Antionette Benitez, DO - 05/07/2024 4:24 PM EST ASSESSMENT/PLAN: 1. Vasovagal syncope - ICD9: 780.2, ICD10: R55 (primary diagnosis) 2. Sinus tachycardia - ICD9: 427.89, ICD10: R00.0 -Reviewed Holter monitor with patient and discussed that she had no significant arrhythmias and that her recorded palpitations were consistent with sinus tachycardia. She is still reporting intermittent syncopal episodes, although these typically occur when she is having bowel movements. Suspect these are vasovagal, although cannot rule out other cause such as POTS, or functional cause given history of BPD. Provided referral to cardiology so that they can evaluate and see if tilt table test is warranted. In interim, recommend he continue compression socks, increasing salt intake. Will follow-up after she sees cardiology. - CONSULT TO CARDIOLOGY 3. Subclinical hypothyroidism - ICD9: 244.8, ICD10: E03.8 -She does report multiple nonspecific symptoms including daily headaches, syncopal episodes, tremors, cold hands and feet, tinnitus, irregular bowel movements. She did have mild elevation of her TSH 6.6. Discussed that symptoms could be related to subclinical hypothyroidism. Will start levothyroxine 25 mcg daily. Recommended follow-up in 4 weeks virtually. - LEVOTHYROXINE 25 MCG TABLET 4. Cervicogenic headache - ICD9: 784.0, ICD10: G44.86 -She reports daily headaches which I suspect are cervicogenic versus occipital neuralgia. Will start with naproxen 500 mg nightly 3-4 times per week as needed. If not effective can consider other options such as gabapentin/pregabalin versus duloxetine. Will follow-up in 4 weeks. - NAPROXEN 500 MG TABLET 5. Borderline personality disorder (HCC) - ICD9: 301.83, ICD10: F60.3 -She is following with psychiatry and is taking time off for this semester and next. She did recently stop her aripiprazole. Recommended continuing fluoxetine and hydroxyzine and following up for appropriate medication regimen. CC: Patient presents with: Follow Up: With blood pressure Also for heart palpitations Passed out 2 days ago HPI: Travon is a 18 year old female that presents with follow-up for palpitations, syncopal episodes, erratic blood pressures. She says that her blood pressures have still been quite erratic and at times when she is measured it has been in the 170s. She says that typically when she has significant palpitations or anxiety shewill check her blood pressure and notes that it is significant elevated. She did do the Holter monitor which not show any significant arrhythmias and her activity or events were consistent with sinustachycardia. She has reported multiple episodes of passing out when she is on the toilet and defecating. She says this typically occurs in the evenings. She denies syncopal episodes outside of the restroom. He is using compression socks to help with her symptoms, has not added salt to her diet. She is reporting multiple other symptoms including intermittent lightheadedness, pain in bilateral calves and feet, tremors, cold hands and feet, headaches, ringing in the ears, upset stomach, irregular bowel movements, poor and foggy memory. She says that she has daily headaches, typically posterior and left-sided. Do not change with position or worsen with Valsalva. ROS: See HPI History: Medical history, surgical history, social history and allergies were reviewed and updated in the system. PHYSICAL EXAM: BP 100/60 Pulse 93 Ht 5' 9.016 (1.75m) Wt 141 lb 5 oz (64.1kg) SpO2 99% LMP 03/18/2024 BMI 20.86 kg/(m^2). General Appearance: Well appearing, alert, in no acute distress, well-hydrated, well nourished.. Ears: External ears normal, canals clear. Nose/Sinuses: Nares normal, septum midline, mucosa normal, no drainage or sinus tenderness. Oropharynx: Lips, mucosa, and tongue normal, teeth and gums normal, oropharynx normal. Neck: Mild tenderness to palpation of left trapezius insertion, mild paraspinal spasm. Lungs: Lungs clear to auscultation. No wheezing, rhonchi, rales.. Heart: RRR without murmur, gallop, or rubs. No ectopy. Neurologic: No gross focal deficits on exam, normal reflexes, mild tenderness and aggravation of headaches with palpation of left trapezius insertion/left occiput. Dr. Antionette Benitez DO documented in this encounterOhiohealth [facility]12-29-2024 Evaluation + Plan note Extracted from: Title:ED Note Author:Hermelindo Howard DO Date :04/21/24 Chest pain (R07.9: Chest mac n, unspecified) Palpitations (R00.2: Palpitations) Syncope (R55: Syncope and collapse) Orders: Basic Metabolic Panel CBC w/ Auto Diff D-Dimer ED Cardiac Monitoring eGFR Oxygen Saturation Oxygen Therapy PT & PTT Saline Lock Insert Troponin 0 Hr. Troponin 1 Hr. [facility] [id number] Hospital Discharge instructions Patient Education 04/21/2024 01:16:12 Nonspecific Chest Pain, Adult Nonspecific Chest Pain, Adult Chest pain is an uncomfortable, tight, or painful feeling in the chest. The pain can feel like a crushing, aching, or squeezing pressure. A person can feel a burning or tingling sensation. Chest paincan also be felt in your back, neck, jaw, shoulder, or arm. This pain can be worse when you move, sneeze, or take a deep breath. Chest pain can be caused by a condition that is life-threatening. This must be treated right away. It can also be caused by something that is not life- threatening. If you have chest pain, it can be hard to know the difference, so it is important to get help right away to make sure that you do not have a serious condition. Some life-threatening causes of chest pain include: Heart attack. A tear in the body's main blood vessel (aortic dissection). Inflammation around your heart (pericarditis). A problem in the lungs, such as a blood clot (pulmonary embolism) or a collapsed lung (pneumothorax). Some non life-threatening causes of chest pain include: Heartburn. Anxiety or stress. Damage to the bones, muscles, and cartilage that make up your chest wall. Pneumonia or bronchitis. Shingles infection (varicella-zoster virus). Your chest pain may come and go. It may also be constant. Your health care provider will do tests and other studies to find the cause of your pain. Treatment will depend on the cause of your chest pain. Follow these instructions at home: Medicines Take bgdz-onl-eafpbzr and prescription medicines only as told by your health care provider. If you were prescribed an antibiotic medicine, take it as told by your health care provider. Do notstop taking the antibiotic even if you start to feel better. Activity Avoid any activities that cause chest pain. Do not lift anything that is heavier than 10 lb (4.5 kg), or the limit that you are told, until your health care provider says that it is safe. Rest as directed by your health care provider. Return to your normal activities only as told by your health care provider. Ask your health care provider what activities are safe for you. Lifestyle Do not use any products that contain nicotine or tobacco, such as cigarettes, e- cigarettes, and chewing tobacco. If you need help quitting, ask your health care provider. Do not drink alcohol. Make healthy lifestyle changes as recommended. These may include: ?Getting regular exercise. Ask your health care provider to suggest some exercises that are safe for you. ?Eating a heart-healthy diet. This includes plenty of fresh fruits and vegetables, whole grains, low-fat (lean) protein, and low-fat dairy products. A dietitian can help you find healthy eating options. ?Maintaining a healthy weight. ?Managing any other health conditions you may have, such as high blood pressure (hypertension) or diabetes. ?Reducing stress, such as with yoga or relaxation techniques. General instructions Pay attention to any changes in your symptoms. It is up to you to get the results of any tests that were done. Ask your health care provider, or the department that is doing the tests, when your results will be ready. Keep all follow-up visits as told by your health care provider. This is important. You may be asked to go for further testing if your chest pain does not go away. Contact a health care provider if: Your chest pain does not go away. You feel depressed. You have a fever. You notice changes in your symptoms or develop new symptoms. Get help right away if: Your chest pain gets worse. You have a cough that gets worse, or you cough up blood. You have severe pain in your abdomen. You faint. You have sudden, unexplained chest discomfort. You have sudden, unexplained discomfort in your arms, back, neck, or jaw. You have shortness of breath at any time. You suddenly start to sweat, or your skin gets clammy. You feel nausea or you vomit. You suddenly feel lightheaded or dizzy. You have severe weakness, or unexplained weakness or fatigue. Your heart begins to beat quickly, or it feels like it is skipping beats. These symptoms may represent a serious problem that is an emergency. Do not wait to see if the symptoms will go away. Get medical help right away. Call your local emergency services (911 in the [place] Do not drive yourself to the hospital. Summary Chest pain can be caused by a condition that is serious and requires urgent treatment. It may also be caused by something that is not life-threatening. Your health care provider may do lab tests and other studies to find the cause of your pain. Follow your health care provider's instructions on taking medicines, making lifestyle changes, and getting emergency treatment if symptoms become worse. Keep all follow-up visits as told by your health care provider. This includes visits for any further testing if your chest pain does not go away. This information is not intended to replace advice given to you by your health care provider. Make sure you discuss any questions you have with your health care provider. Document Revised: 02/23/2023 Document Reviewed: 02/23/2023 [employer] Patient Education 2023 [employer]. 04/21/2024 01:16:12 Syncope, Adult Syncope, Adult Syncope refers to a condition in which a person temporarily loses consciousness. Syncope may also be called fainting or passing out. It is caused by a sudden decrease in blood flow to the brain. Thiscan happen for a variety of reasons. Most causes of syncope are not dangerous. It can be triggered by things such as needle sticks, seeing blood, pain, or intense emotion. However, syncope can also be a sign of a serious medical problem, such as a heart abnormality. Other causes can include dehydration, migraines, or taking medicines that lower blood pressure. Your health care provider may do tests to find the reason why you are having syncope. If you faint, get medical help right away. Call your local emergency services (911 in the [place] Follow these instructions at home: Pay attention to any changes in your symptoms. Take these actions to stay safe and to help relieve your symptoms: Knowing when you may be about to faint Signs that you may be about to faint include: ?Feeling dizzy, weak, light-headed, or like the room is spinning. ?Feeling nauseous. ?Seeing spots or seeing all white or all black in your field of vision. ?Having cold, clammy skin or feeling warm and sweaty. ?Hearing ringing in the ears (tinnitus). If you start to feel like you might faint, sit or lie down right away. If sitting, put your head down between your legs. If lying down, raise (elevate) your feet above the level of your heart. ?Breathe deeply and steadily. Wait until all the symptoms have passed. ?Have someone stay with you until you feel stable. Medicines Take djsg-ltb-dcrlskx and prescription medicines only as told by your health care provider. If you are taking blood pressure or heart medicine, get up slowly and take several minutes to sit and then stand. This can reduce dizziness and decrease the risk of syncope. Lifestyle Do not drive, use machinery, or play sports until your health care provider says it is okay. Do not drink alcohol. Do not use any products that contain nicotine or tobacco. These products include cigarettes, chewing tobacco, and vaping devices, such as e-cigarettes. If you need help quitting, ask your health careprovider. Avoid hot tubs and saunas. General instructions Talk with your health care provider about your symptoms. You may need to have testing to understandthe cause of your syncope. Drink enough fluid to keep your urine pale yellow. Avoid prolonged standing. If you must stand for a long time, do movements such as: ?Moving your legs. ?Crossing your legs. ?Flexing and stretching your leg muscles. ?Squatting. Keep all follow-up visits. This is important. Contact a health care provider if: You have episodes of near fainting. Get help right away if: You faint. You hit your head or are injured after fainting. You have any of these symptoms that may indicate trouble with your heart: ?Fast or irregular heartbeats (palpitations). ?Unusual pain in your chest, abdomen, or back. ?Shortness of breath. You have a seizure. You have a severe headache. You are confused. You have vision problems. You have severe weakness or trouble walking. You are bleeding from your mouth or rectum, or you have black or tarry stool. These symptoms may represent a serious problem that is an emergency. Do not wait to see if your symptoms will go away. Get medical help right away. Call your local emergency services (911 in the [place] Do not drive yourself to the hospital. Summary Syncope refers to a condition in which a person temporarily loses consciousness. Syncope may also be called fainting or passing out. It is caused by a sudden decrease in blood flow to the brain. Signs that you may be about to faint include dizziness, feeling light-headed, feeling nauseous, sudden vision changes, or cold, clammy skin. Even though most causes of syncope are not dangerous, syncope can be a sign of a serious medical problem. Get help right away if you faint. If you start to feel like you might faint, sit or lie down right away. If sitting, put your head down between your legs. If lying down, raise (elevate) your feet above the level of your heart. This information is not intended to replace advice given to you by your health care provider. Make sure you discuss any questions you have with your health care provider. Document Revised: 08/19/2021 Document Reviewed: 08/19/2021 [employer] Patient Education 2023 [employer]. Follow Up Care 04/20/2024 22:52:49 With:Ernst Danielson Address: [place] [phone] Business (1) When:04/26/2024 [facility] 12-29-2024 NoteED Patient Education Note Neurology Syncope, Adult Syncope refers to a condition in which a person temporarily loses consciousness. Syncope may also be called fainting or passing out. It is caused by a sudden decrease in blood flow to the brain. Thiscan happen for a variety of reasons. Most causes of syncope are not dangerous. It can be triggered by things such as needle sticks, seeing blood, pain, or intense emotion. However, syncope can also be a sign of a serious medical problem, such as a heart abnormality. Other causes can include dehydration, migraines, or taking medicines that lower blood pressure. Your health care provider may do tests to find the reason why you are having syncope. If you faint, get medical help right away. Call your local emergency services (911 in the [place] Follow these instructions at home: Pay attention to any changes in your symptoms. Take these actions to stay safe and to help relieve your symptoms: Knowing when you may be about to faint ??? Signs that you may be about to faint include: ? Feeling dizzy, weak, light-headed, or like the room is spinning. ? Feeling nauseous. ? Seeing spots or seeing all white or all black in your field of vision. ? Having cold, clammy skin or feeling warm and sweaty. ? Hearing ringing in the ears (tinnitus). ??? If you start to feel like you might faint, sit or lie down right away. If sitting, put your head down between your legs. If lying down, raise (elevate) your feet above the level of your heart. ? Breathe deeply and steadily. Wait until all the symptoms have passed. ? Have someone stay with you until you feel stable. Medicines ??? Take bfig-qwj-kpylsnb and prescription medicines only as told by your health care provider. ??? If you are taking blood pressure or heart medicine, get up slowly and take several minutes to sit and then stand. This can reduce dizziness and decrease the risk of syncope. Lifestyle ??? Do not drive, use machinery, or play sports until your health care provider says it is okay. ??? Do not drink alcohol. ??? Do not use any products that contain nicotine or tobacco. These products include cigarettes, chewing tobacco, and vaping devices, such as e-cigarettes. If you need help quitting, ask your health care provider. ??? Avoid hot tubs and saunas. General instructions ??? Talk with your health care provider about your symptoms. You may need to have testing to understand the cause of your syncope. ??? Drink enough fluid to keep your urine pale yellow. ??? Avoid prolonged standing. If you must stand for a long time, do movements such as: ? Moving your legs. ? Crossing your legs. ? Flexing and stretching your leg muscles. ? Squatting. ??? Keep all follow-up visits. This is important. Contact a health care provider if: ??? You have episodes of near fainting. Get help right away if: ??? You faint. ??? You hit your head or are injured after fainting. ??? You have any of these symptoms that may indicate trouble with your heart: ? Fast or irregular heartbeats (palpitations). ? Unusual pain in your chest, abdomen, or back. ? Shortness of breath. ??? You have a seizure. ??? You have a severe headache. ??? You are confused. ??? You have vision problems. ??? You have severe weakness or trouble walking. ??? You are bleeding from your mouth or rectum, or you have black or tarry stool. These symptoms may represent a serious problem that is an emergency. Do not wait to see if your symptoms will go away. Get medical help right away. Call your local emergency services (911 in the [place] Do not drive yourself to the hospital. Summary ??? Syncope refers to a condition in which a person temporarily loses consciousness. Syncope may also be called fainting or passing out. It is caused by a sudden decrease in blood flow to the brain. ??? Signs that you may be about to faint include dizziness, feeling light- headed, feeling nauseous,sudden vision changes, or cold, clammy skin. ??? Even though most causes of syncope are not dangerous, syncope can be a sign of a serious medical problem. Get help right away if you faint. ??? If you start to feel like you might faint, sit or lie down right away. If sitting, put your head down between your legs. If lying down, raise (elevate) your feet above the level of your heart. This information is not intended to replace advice given to you by your health care provider. Make sure you discuss any questions you have with your health care provider. Document Revised: 08/19/2021 Document Reviewed: 08/19/2021 [employer] Patient Education ? 2023 [employer] Pulmonary Medicine Nonspecific Chest Pain, Adult Chest pain is an uncomfortable, tight, or painful feeling in the chest. The pain can feel like a crushing, aching, or squeezing pressure. A person can feel a burning or tingling sensation. Chest paincan also be felt in your back, neck, jaw, shoulder, or arm. Th (more content not included)...[facility]12-20-2024 NoteHNO ID: [id number] Author: MARIANGEL VILLARREAL LPN Service: ? Author Type: LICENSED NURSE Type: Progress Notes Filed: 04/12/2024 13:22 Note Text: Patient returned holter monitor. Testing completed without incident Cassette processed per protocol. [facility] of Present illness Narrative* Mariangel Villarreal LPN - 04/12/2024 12:45 PM EST Patient returned holter monitor. Testing completed without incident Cassette processed per protocol. Diary faxed Mariangel Villarreal LPN documented [facility] Telephone encounter Note * Telephone Encounter - Benjy Adhikari - 04/08/2024 9:29 AM EST Called and scheduled patient for 04/10. [facility] Miscellaneous Notes* Telephone Encounter - Benjy Adhikari - 04/08/2024 9:29 AM EST Called and scheduled patient for 04/10. * Telephone Encounter - Vanda Fritz - 04/05/2024 3:43 PM EST Jen at [facility] [address] office Needing to bee set up with a 48 hour Holter Monitor Please call the patient at the home number confirmed by the office documented in this encounterOhio[facility] Telephone encounter Note * Telephone Encounter - Vanda Fritz - 04/05/2024 3:43 PM EST Jen at [facility] [address] office Needing to bee set up with a 48 hour Holter Monitor Please call the patient at the home number confirmed by the office [facility]12[facility]24 NoteHNO ID: [id number] Author: ANTIONETTE BENITEZ, DO Service: ? Author Type: Physician Type: Progress Notes Filed: 05/24/2024 21:14 Note Text: ASSESSMENT/PLAN: 1. Palpitations - ICD9: 785.1, ICD10: R00.2 (primary diagnosis) -She is concern for frequent palpitations, lightheadedness. Obtained ECG which appears to be normal. Will obtain Holter monitor, labs. Recommended follow-up in 4 weeks. - ECG COMPLETE - COMPLETE BLOOD COUNT - COMPREHENSIVE METABOLIC PANEL - TSH W/REFLEX FT4 - HOLTER MONITOR 48 HOUR 2. Borderline personality disorder (HCC) - ICD9: 301.83, ICD10: F60.3 -Following with psychiatry. Continue current medications. CC: Patient presents with: Establish Care: Discuss high blood pressure HPI: Travon is a 18 year old female that presents with discuss high blood pressure. Anxiety- takes abilify 5 mg once daily for anxiety/BPD. She says that she started having tremors/shaking over the last month; she has also had dry mouth. She says her hands and feet get hot, blurred vision. ROS: See HPI History: Medical history, surgical history, social history and allergies were reviewed and updated in the system. PHYSICAL EXAM: BP 148/100 Pulse 98 Temp 98.1 Ht 5' 9 (1.75m) Wt 139 lb 12.4 oz (63.4kg) SpO2 97% LMP 03/18/2024 BMI 20.63 kg/(m2). General Appearance: Well appearing, alert, in no acute distress, well-hydrated, well nourished.. Lungs: Lungs clear to auscultation. No wheezing, rhonchi, rales.. Heart: RRR without murmur, gallop, or rubs. No ectopy. Abdomen: Normal abdominal exam, Abdomen soft, non-tender. Bowel sounds normal. No masses, organomegaly. Neurologic: Gait normal. Reflexes normal and symmetric. Sensation grossly intact.. Dr. Antionette [facility]itez[facility] History of Present illness Narrative* Antionette Benitez DO - 04/05/2024 2:57 PM EST ASSESSMENT/PLAN: 1. Palpitations - ICD9: 785.1, ICD10: R00.2 (primary diagnosis) -She is concern for frequent palpitations, lightheadedness. Obtained ECG which appears to be normal. Will obtain Holter monitor, labs. Recommended follow-up in 4 weeks. - ECG COMPLETE - COMPLETE BLOOD COUNT - COMPREHENSIVE METABOLIC PANEL - TSH W/REFLEX FT4 - HOLTER MONITOR 48 HOUR 2. Borderline personality disorder (HCC) - ICD9: 301.83, ICD10: F60.3 -Following with psychiatry. Continue current medications. CC: Patient presents with: Establish Care: Discuss high blood pressure HPI: Travon is a 18 year old female that presents with discuss high blood pressure. Anxiety- takes abilify 5 mg once daily for anxiety/BPD. She says that she started having tremors/shaking over the last month; she has also had dry mouth. She says her hands and feet get hot, blurred vision. ROS: See HPI History: Medical history, surgical history, social history and allergies were reviewed and updated in the system. PHYSICAL EXAM: BP 148/100 Pulse 98 Temp 98.1 Ht 5' 9 (1.75m) Wt 139 lb 12.4 oz (63.4kg) SpO2 97% LMP 03/18/2024 BMI 20.63 kg/(m^2). General Appearance: Well appearing, alert, in no acute distress, well-hydrated, well nourished.. Lungs: Lungs clear to auscultation. No wheezing, rhonchi, rales.. Heart: RRR without murmur, gallop, or rubs. No ectopy. Abdomen: Normal abdominal exam, Abdomen soft, non-tender. Bowel sounds normal. No masses, organomegaly. Neurologic: Gait normal. Reflexes normal and symmetric. Sensation grossly intact.. Dr. Antionette Benitez, DO documented in this encounterOhio[facility]11-[facility] Hospital Discharge instructions* Discharge Instructions* Leeroy Garay DO - 03/16/2024 6:24 AM EST Please [...] resolve once you have finished the antibiotics. * Attachments The following attachments cannot be sent through Care Everywhere. * Urinary Tract Infection Discharge Instructions, Adult (Bermudian) documented in this [facility]11-23-2024 Emergency department Note* Leeroy Garay DO - 03/16/2024 4:57 AM EST EMERGENCY DEPARTMENT ENCOUNTER Pt Name: Travon Stallworth Birthdate 2005 Date of evaluation: 03/16/2024 ED Provider: LEEROY GARAY DO CHIEF COMPLAINT Chief Complaint Patient presents with Female Dysuria Pt presents to the ed w painful, burning and bloody urine x 1 day via squad. Ems reports pt was found at a closed urgent care to be seen for the complaints but once she arrived and seen they were theboyfriend called the squad. Pt answers all questions appropriately but delayed response. EMS reports pt smoked a blunt for the pain but made things worse. Pt is A&O x 3 with a GCS of 15. Pt is wit hout distress and has a steady gait. HISTORY [...] so then boyfriend called squad to bring herto the ED. Here patient does not have [...] amenorrhea. This is abnormal for her as bernie has regular cycles every month. Otherwise has [...] Patient understands instructions has been given return precaut ions. Patient discharged. Diagnoses as of 03/16/24 0628 Acute cystitis with hematuria Pyelonephritis External records [...] are any questions or concerns please feel freeto contact the dictating provider for clarification.) LEEROY GARAY DO (electronically signed) Emergency Medicine Provider Leeroy Garay DO Resident 03/16/24 0628 Cosigned by Roney Issa DO at 03/16/2024 8:30 AM EST documented in this [facility]11-23-2024 Physician Emergency department Note* Leeroy Graay DO - 03/16/2024 4:57 AM EST EMERGENCY DEPARTMENT ENCOUNTER Pt Name: Travon Stallworth Birthdate 2005 Date of evaluation: 03/16/2024 ED Provider: LEEROY GARAY DO CHIEF COMPLAINT Chief Complaint Patient presents with Female Dysuria Pt presents to the ed w painful, burning and bloody urine x 1 day via squad. Ems reports pt was found at a closed urgent care to be seen for the complaints but once she arrived and seen they were theboyfriend called the squad. Pt answers all questions appropriately but delayed response. EMS reports pt smoked a blunt for the pain but made things worse. Pt is A&O x 3 with a GCS of 15. Pt is wit hout distress and has a steady gait. HISTORY OF PRESENT ILLNESS (Location/Symptom, Timing/Onset, Context/Setting, Quality, Duration, Modifying Factors, Severity) Note limiting factors. I wore appropriate PPE for the entirety of this encounter. HPI Travon Stallworth is a 18 y.o. who presents to the emergency department complaining of bloody painful urination. Patient went to an urgent care that was close so then boyfriend called laura to bring herto the ED. Here patient does not have [...] amenorrhea. This is abnormal for her as usuallydemarcoe has regular cycles every month. Otherwise has [...] Patient understands instructions has been given return precaut ions. Patient discharged. Diagnoses as of 03/16/24627 Acute [...] are any questions or concerns please feel freeto contact the dictating provider for clarification.) LEEROY GARAY DO (electronically signed) Emergency Medicine Provider Leeroy Garay DO Resident 03/16/24627 Cosigned by Roney Issa DO at 03/16/2024 8:30 AM EST [id number] History of Present illness Narrative* Kalyn Gilman DO - 11/30/2023 2:45 PM EDT Rash History was provided by the mother. Travon Stallworth is a 18 y.o. female who presents for evaluation of Rash Rash This is a new problem. Episode onset: 1.5 wks. Location: axilla, antecubital, neck. The rash is characterized by dryness. Pertinent negatives include no congestion, cough, fever or rhinorrhea. Past treatments include topical steroids. The treatment provided no relief. Some minor constipation Alopecia FMH thyroid disorders- mom Hashimotos Recent illnesses: none. Sick contacts: none known. New exposures to soaps none, lotions none, detergents none Allergies Allergen Reactions No Known Drug Allergies Current Outpatient Medications: ARIPiprazole (ABILIFY) 2 mg tablet, Take 2 tablets (4 mg total) by mouth., Disp: , Rfl: hydrOXYzine (ATARAX) 25 mg tablet, , Disp: , Rfl: FLUoxetine (PROzac) 40 mg capsule, Take 60 mg by mouth daily., Disp: , Rfl: mometasone (ELOCON) 0.1 % cream, Apply 1 Application topically in the morning., Disp: 45 g, Rfl: 0 The following portions of the patient's history were reviewed and updated as appropriate: allergies, current medications, past medical history, problem list, and medication reconciliation was completed including current medication and post discharge medication Review of Systems: Review of Systems Constitutional: Positive for appetite change. Negative for fever. HENT: Negative for congestion and rhinorrhea. Respiratory: Negative for cough. Gastrointestinal: Negative for abdominal pain. Skin: Positive for rash. Dry skin that has been present for about 1.5 weeks In arm pit area , inside of elbow, and back on the neck Hydrocortisone prn Areas burn Neurological: Negative for headaches. Psychiatric/Behavioral: Positive for sleep disturbance. Objective: There were no vitals taken for this visit. General: alert Skin: Nape of neck with dry skin, bilateral axillas and antecubital regions with dry, excoriated skin Assessment/Plan: Travon was seen today for rash. Diagnoses and all orders for this visit: Atopic neurodermatitis - mometasone (ELOCON) 0.1 % cream; Apply 1 Application topically in the morning. - Thyroid profile includes TSH FT4; Future Cerave bid Use of benign bath wash * Kalyn Gilman, DO - 11/30/2023 2:45 PM EDT Subjective: Adolescent Well Check Well Child Assessment: Lives with: Apt with cousin at school. Nutrition Types of intake include fruits, meats and vegetables (picky eater. 2 % milk.). Dental The patient has a dental home. The patient brushes teeth regularly. Last dental exam was more than a year ago. Elimination (BM every 2 days) Sleep Average sleep duration (hrs): 6-7 hours. There are sleep problems (trouble staying asleep). School Current school district is [employer] ([employer]). Child is performing acceptably in school. Screening There are no risk factors related to diet. There are no risk factors at school. There are no risk factors for sexually transmitted infections (4 partners- males and females. condoms. Identifies as bisexual.). There are no risk factors related to alcohol (social and occassional). There are no risk factors related to relationships. There are no risk factors related to friends or family. There are risk factors related to emotions. There are risk factors related to drugs (THC- 2x weekly). There areno risk factors related to personal safety (no citations, no text, (+) seatbelt). There are risk factors related to tobacco (vaping). Social After school activity: Positive friends. Currently dating. Menses: regular cycles. Denies heavy bleeding and cramps Current Outpatient Medications: ARIPiprazole (ABILIFY) 2 mg tablet, Take 2 tablets (4 mg total) by mouth., Disp: , Rfl: hydrOXYzine (ATARAX) 25 mg tablet, , Disp: , Rfl: Immunization, In Clinic,, Inject 0.5 mL into the appropriate muscle once for 1 dose. diph,pertuss(acel),tet vac(PF) Sign this order to satisfy the OSBOP Positive ID requirements for immunization orders., Disp: , Rfl: mometasone (ELOCON) 0.1 % cream, Apply 1 Application topically in the morning., Disp: 45 g, Rfl: 0 Allergies Allergen Reactions No Known Drug Allergies SPECIALISTS : [facility] The following portions of the patient's history were reviewed and updated as appropriate: allergies, current medications, past family history, past medical history, past social history, past surgicalhistory, problem list, and medication reconciliation was completed including current medication andpost discharge medication Objective: Vitals: 11/30/23 1508 BP: 124/74 Pulse: 88 Weight: 61.1 kg (134 lb 12.8 oz) Height: 173.4 cm (5' 8.25 ) General: alert, appears stated age and cooperative Gait: normal Skin: normal Oral cavity: lips, mucosa, and tongue normal; teeth and gums normal Eyes: sclerae white, pupils equal and reactive, red reflex normal bilaterally Ears: normal bilaterally Neck: no adenopathy, supple, symmetrical,no tenderness/mass/nodules Lungs: clear to auscultation bilaterally, no distress Heart: regular rate and rhythm, S1, S2 normal, no murmur, click, rub or gallop Abdomen: soft, non-tender; bowel sounds normal; no masses, no organomegaly Michael: normal female exam V Extremities Spine: extremities normal, atraumatic, No scoliosis Neuro: normal without focal findings, alert and oriented x3, PERRLA and reflexes normal and symmetric How often have you been bothered by each of the following symptoms during the past two weeks? Feeling down, depressed, irritable, or hopeless?: (!) Several days Little interest or pleasure in doing things?: (!) More than half the days Trouble falling, staying asleep or sleeping too much?: (!) More than half the days Poor appetite, weight loss, or overeating?: (!) More than half the days Feeling tired, or having little energy?: (!) Several days Feeling bad about yourself - or feeling that you are a failure, or have let yourself or your familydown?: (!) More than half the days Trouble concentrating on things like school work, reading, or watching TV?: (!) Several days Moving or speaking so slowly that other people could have noticed? Or the opposite - being so fidgety or restless that you were moving around a lot more than usual?: (!) Several days Thoughts that you would be better off , or of hurting yourself in some way?: (!) Several days In the past year have you felt depressed or sad most days, even if you felt okay sometimes?: No If you are experiencing any of the problems on this form, how difficult have these problems made itfor you to do your work, take care of things at home or get along with other people?: (!) Somewhat difficult Has there been a time in the past month when you have had serious thoughts about ending your life?:No Have you EVER, in your WHOLE LIFE, tried to kill yourself or made a suicide attempt?: (!) Yes Severity Score: 13 Last suicide attempt was 2 years ago Assessment: Well adolescent. Travon was seen today for rash. Diagnoses and all orders for this visit: Well adult exam Atopic neurodermatitis - mometasone (ELOCON) 0.1 % cream; Apply 1 Application topically in the morning. - Thyroid profile includes TSH FT4; Future Need for vaccination - Tdap vaccine greater than or equal to 7yo IM Plan: 1. Orders this visit: Orders Placed This Encounter Procedures Tdap vaccine greater than or equal to 7yo IM Thyroid profile includes TSH FT4 2. Anticipatory guidance discussed. Specific topics reviewed: drugs, ETOH, and tobacco, importance of regular dental care, importance of regular exercise, importance of varied diet, seat belts, and sex; STD and prevention. 3. recommendation to caregiver regarding child's diet and dietary management education, guidance and counselingexercise education, guidance, and counseling 4. Physical Activity: Counseled regarding active lifestyle, limit screen time, cardio activity 5. Patient given her age out letter today. Will continue to follow next 30 days while awaiting labsand skin update [facility] Dis[facility]* Activity:activity as tolerated. May shower. May return to school/work Instructions:. May drive. * Follow Up Appointment 1:Physician/Dept/Service: Dr. Jorgito Coyle MD/PsychiatrisstScheduled Date/Time: 12-Jan-2022 09:30Location: [place] [id number] Number: [phone]; FAX [phone]: THIS IS A VIRTUAL APPOINTMENT * Follow Up Appointment 2:Physician/Dept/Service: [facility] [facility] [address] [place], [place]Phone Number: [phone]; FAX [phone]: I HAD TO LEAVE A MESSAGE FOR YOUR COUNSELOR RE; YOUR NEXT VIRTUAL APPOINTMENT; PLEASE CALL SANKET TO CONFIRM YOUR APPOINTMENT * Follow Up Appointment 3:Physician/Dept/Service: Michelle De Anda/CounselorReason for Referral: DBT CounselorLocation: [place]Phone Number: [phone]: CALL TO SEE ABOUT AN APPOINTMENT * Follow Up Appointment 4:Physician/Dept/Service: [facility]Location[facility] [place], [place]Phone Number: [phone]: THEY HAVE A GREAT ONLINE DBT IOP GROUP THAT YOU WOULD LOVE; GIVE THEM A CALL FOR MORE INFORMATION [facility] note* Affect: blunted at timesJudgment: needs improvementMotor Activity: No agitation or retardation. No EPS/TD. Normal gait.Speech: Regular rate, rhythm, volume and tone, spontaneous, fluent. Mood: depressed, minimizing notedThought Process: Organized, linear, goal directed. Associations are logical.Attitude: Patient appeared in gown, wig, glasses, acneThought Perception: Does not endorse auditory or visual hallucinations, does not appear to be responding to hallucinatory stimuli. Cognition: Alert, o riented x3. No deficits noted. Adequate fund of knowledge. No deficit in recent and remote memory. No deficits in attention, concentration or language.General: Patient is a female with light skin, curled hair, heavy eye makeup, wearing a hospital gown and blanket.Appearance: Patient appeared well kept.Behavior: Appropriate eye contact.Thought Content: Does not endorse suicidal or homicidal ideation, no delusions elicited.Insight: needs improvement [facility] note* Diagnosis Acute cystitis with hematuria- Primary Pyelonephritis Unspecified pyelonephritis documented in this encounter [facility] note* Diagnosis Elevated blood pressure reading without diagnosis of hypertension Palpitations documented in this encounter [facility] note* Diagnosis Palpitations- Primary documented in this encounter [facility] note* Diagnosis Vasovagal syncope- Primary Syncope and collapse Sinus tachycardia Other specified cardiac dysrhythmias Subclinical hypothyroidism Other specified acquired hypothyroidism Cervicogenic headache Headache Borderline personality disorder (HCC) Borderline personality disorder [facility] [place] [facility]* Diagnosis Palpitations- Primary Borderline personality disorder (HCC) Borderline personality disorder Elevated blood pressure reading without diagnosis of hypertension Palpitations documented [facility] [place] [facility]* Diagnosis Seizure (CMS/HCC)- Primary Other convulsions Anxiety Anxiety state, unspecified documented in [facility] encounter [facility]* Diagnosis Well adult exam- Primary Routine general medical examination at a health care facility Atopic neurodermatitis Need for vaccination Need for prophylactic vaccination and inoculation against unspecified single disease [facility] [place] [facility]* Diagnosis Subclinical hypothyroidism- Primary Other specified acquired hypothyroidism Vasovagal syncope Syncope and collapse Seizure-like activity (HCC) Other convulsions [facility] [place] [facility]* Diagnosis Cervicogenic headache Headache documented [facility] [place] [facility]* Diagnosis Syncope, unspecified syncope type- Primary Palpitations [facility] [place] [facility]* Diagnosis Subclinical hypothyroidism Other specified acquired hypothyroidism [facility] [place] [facility]* Diagnosis Right flank pain- Primary Abdominal pain, unspecified site Vaginal discharge Leukorrhea, not specified as infective documented in this encounter [facility] [place] noteNo assessment information availableMemorial Hospital Work Phone: evaluuhoct note* Diagnosis Seizure (CMS/HCC)- Primary Other convulsions Anxiety Anxiety state, unspecified documented in this encounter [facility]* Diagnosis Onset Date Resolution Status Admit Date Bacterial pharyngitis acute August 22, 2024 6:24pm Possible exposure to STI acute August 22, 2024 6:24pm [facility] Work Phone: Evaluation note* Diagnosis Bacterial vaginosis- Primary Vaginitis and vulvovaginitis, unspecified [facility] [place] [facility]* Diagnosis Vaginal discharge- Primary Leukorrhea, not specified as infective Dysuria documented in this encounter [facility] Work Phone: Evaluation note* Diagnosis Elevated blood pressure reading without diagnosis of hypertension- Primary Missed period Irregular menstrual cycle [facility]* Diagnosis Viral URI- Primary Acute upper respiratory infections of unspecified site Sore throat Acute pharyngitis documented in this encounter [facility] Work Phone: Evaluation note* Diagnosis Well woman exam with routine gynecological exam- Primary Routine gynecological examination Burning with urination Dysuria Encounter for test, result unknown Unprotected sexual intercourse Problems related to high-risk sexual behavior [facility] Diagnosis Sore throat- Primary Acute pharyngitis Suspected COVID-19 virus infection documented in this encounter [facility] Work Phone: Hospital course Narrative No data available for this section [facility] InstructionsNot on filedocumented in this encounter [facility] filedocumented in this encounter [facility] filedocumented in this encounter [facility] filedocumented in this encounter [facility]Not on filedocumented in this encounter [facility]* Attachments The following attachments cannot be sent through Care Everywhere. * _Upper Respiratory Infection (URI), [facility] Work Phone: InstructionsNot on filedocumented in this encounter [facility]ructionsNot [facility] filedocumented in this encounter [facility] No data available for this section [facility] Reason for referral (narrative)* Outpatient Procedure (Routine) - New Request Specialty Diagnoses / Procedures Referred By Tolu t Referred To [facility] Diagnoses Elevated blood pressure reading without diagnosis of hypertension Palpitations Procedures ECG COMPLETE ECG ROUTINE ECG W/LEAST 12 LDS W/I&R Antionette Benitez DO [address] [place] [address] [facility] [address] [place] [id number] Referral ID Status Reason Start Date Expiration Date Visits Requested Visits Authorized [id number] New Request Auto-Generat ed Referral 4 04/05/2025 1 1 [facility] for referral (narrative)No reason for referral [facility]Bl[facility] Work Phone: Summary Purpose Family History No Family History Records Found Relationship Condition Age at Onset Recorded Date/T bartolome father Hypertension Unknown Advance Directives No Advanced Directives Records Found Advance Directive Response Recorded Date/ Time Advance Directives No March 8:40am Reason for Referral Specialty Diagnoses / Procedures Referred By Contac t Referred To Contact Cardiology Diagnoses Vasovagal syncope Sinus tachycardia Procedures CONSULT TO CARDIOLOGY OFFICE/OUTPATIENT [facility] 60 MINUTES Antionette Benitez DO [address] [place] [id number] Referral ID Status Reason Start Date Expiration Date Visits Requested Visits Authorized [id number] Pending Review PCP Requested Referral 05/07/2024 05/07/2025 1 1 Chief Complaint and Reason for Visit Chief Complaint Admit Date R56.9 July 23, 2024 5:13 pm Chief Complaint Admit Date R56.9 July 23, 2024 5:13 pm sore throat, fever August 22, 2024 6:24pm Reason for Visit Admit Date Bacterial pharyngitis August 22, 2024 6:24 pm Possible exposure to STI August 22, 2024 6 :24pm Chief Complaint Admit Date sore throat, fever August 22, 2024 6:24pm Z72.51 August 22, 2024 6:50pm sinus pressure -eyes, cough, swollen lym phs October 28, 2024 9:08am Reason for Visit Admit Date Bacterial pharyngitis August 22, 2024 6:24 pm Possible exposure to STI August 22, 2024 6 :24pm URI (upper respiratory infection) October 282024 9:08am Additional Source Comments INFORMATION SOURCE (unrecogn ized section and content) DATE CREATED AUTHOR 12/02/2018 [facility] DATE CREATED AUTHOR AUTHOR'S ORGANIZ ATION 12/19/2021 [facility] DATE CREATED AUTHOR AUTHOR'S ORGANIZ ATION 12/23/2021 [facility] DATE CREATED AUTHOR AUTHOR'S ORGANIZ ATION 12/03/2023 [facility] DATE CREATED AUTHOR AUTHOR'S ORGANIZ ATION 02/09/2024 [facility] DATE CREATED AUTHOR AUTHOR'S ORGANIZ ATION 03/19/2024 [facility] DATE CREATED AUTHOR AUTHOR'S ORGANIZ ATION 04/21/2024 Traylor Wapello [facility] DATE CREATED AUTHOR AUTHOR'S ORGANIZ ATION 04/25/2024 Traylor Wapello [facility] DATE CREATED AUTHOR AUTHOR'S ORGANIZ ATION 07/17/2024 [facility] DATE CREATED AUTHOR AUTHOR'S ORGANIZ ATION 08/13/2024 [facility] DATE CREATED AUTHOR AUTHOR'S ORGANIZ ATION 08/28/2024 [facility] DATE CREATED AUTHOR AUTHOR'S ORGANIZ ATION 09/23/2024 [facility] DATE CREATED AUTHOR AUTHOR'S ORGANIZ ATION 10/26/2024 [facility] DATE CREATED AUTHOR AUTHOR'S ORGANIZ ATION 10/26/2024 [facility] DATE CREATED AUTHOR AUTHOR'S ORGANIZ ATION 11/01/[address] 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 Had blood pulling in hands, vertigo.Still consistently with 99.0 temp at night- concernedPlanned B taken 2 days ago. Asking to have blood draw . test Reason Comments Sore Throat Sore throat x 2 days Reason Comments New Patient new patientfirst julius ual with paphad unprotected intercourse two days ago, wondering about plan bwondering about urine , urine culture utiquestioning control Reason Comments was here yesterday, wants covid test Scheduled Active and Recently Administ ered Medications (unrecognized section and content) Medication Order 03/14/2024 03/15/2024 03/16/2024 cephalexin (Keflex) capsule 500 mg (COMPLETED) 500 mg, Oral, Once, On 03/16/24 at 0620, For 1 dose, Suspected Indication (Select all that apply): Urinary Tract Infection 06 (Given - Provid er: Siena Blood RN) phenazopyridine (Pyridium) tablet 200 mg (COMPLETED) 200 mg, Oral, Once, On 03/16/24 at 0620, For 1 dose 06 (Given - Provid er: Siena Blood RN) Source Comments (unrecognize d section and content) In the event this informatio n is protected by the Federal Confidentiality of Alcohol and Drug Abuse Patient Records regulations: The Federal rules restrict any use of the information to criminally investigate or prosecute any alcohol or drug abuse patient.[facility] HospitalIn the event this information is protected by the Federal Confidentiality of Alcohol and Drug Abuse Patient Records regulations: The Federal rules restrict any use of the information to criminally investigate or prosecute any alcohol or drug abuse patient.[facility] HospitalIn the event this information is protected by the Federal Confidentiality of Alcohol and Drug Abuse Patient Records regulations: The Federal rules restrict any use of the information to criminally investigate or prosecute any alcohol or drug abuse patient.[facility] HospitalIn the event this information is protected by the Federal Confidentiality of Alcohol and Drug Abuse Patient Records regulations: The Federal rules restrict any use of the information to criminally investigate or prosecute any alcohol or drug abuse patient.[facility] HospitalIn the event this information is protected by the Federal Confidentiality of Alcohol and Drug Abuse Patient Records regulations: The Federal rules restrict any use of the information to criminally investigate or prosecute any alcohol or drug abuse patient.[facility] HospitalIn the event this information is protected by the Federal Confidentiality of Alcohol and Drug Abuse Patient Records regulations: The Federal rules restrict any use of the information to criminally investigate or prosecute any alcohol or drug abuse patient.[facility] HospitalIn the event this information is protected by the Federal Confidentiality of Alcohol and Drug Abuse Patient Records regulations: The Federal rules restrict any use of the information to criminally investigate or prosecute any alcohol or drug abuse patient.[facility] HospitalIn the event this information is protected by the Federal Confidentiality of Alcohol and Drug Abuse Patient Records regulations: The Federal rules restrict any use of the information to criminally investigate or prosecute any alcohol or drug abuse patient.[facility] HospitalIn the event this information is protected by the Federal Confidentiality of Alcohol and Drug Abuse Patient Records regulations: The Federal rules restrict any use of the information to criminally investigate or prosecute any alcohol or drug abuse patient.[facility] HospitalIn the event this information is protected by the Federal Confidentiality of Alcohol and Drug Abuse Patient Records regulations: The Federal rules restrict any use of the information to criminally investigate or prosecute any alcohol or drug abuse patient.[facility] HospitalIn the event this information is protected by the Federal Confidentiality of Alcohol and Drug Abuse Patient Records regulations: The Federal rules restrict any use of the information to criminally investigate or prosecute any alcohol or drug abuse patient.[facility] HospitalIn the event this information is protected by the Federal Confidentiality of Alcohol and Drug Abuse Patient Records regulations: The Federal rules restrict any use of the information to criminally investigate or prosecute any alcohol or drug abuse patient.[facility] Care Teams (unrecognized sec tion and content) Service Advocate Contact Relationship Specialty Start Date End Date Antionette Benitez DO [address] [place] [id number] PCP - General Family Medicine 04/05/24 Service Advocate Contact Relationship Specialty Start Date End Date Antionette Benitez DO [address] [place] [id number] PCP - General Family Medicine 04/05/24 Service Advocate Contact Relationship Specialty Start Date End Date Antionette Benitez DO [address] [place] [address] [phone] PCP - General Family Medicine 04/05/24 Service Advocate Contact Relationship Specialty Start Date End Date Antionette Benitez DO [address] [place] [phone] PCP - General Family Medicine 04/05/24 Service Advocate Contact Relationship Specialty Start [place] [address] [place] [address] PCP - General Family Medicine 04/22/24 Service Advocate Contact Relationship Specialty Start [place] [address] [place] [address] PCP - General Family Medicine 04/22/24 Service Advocate Contact Relationship Specialty Start Date End Date Kalyn Gilman DO [address] [facility] [place] [address] PCP - General Pediatrics 02/10/17 12/31/23 Service Advocate Contact Relationship Specialty Start Date End Date Antionette Benitez DO [address] [place] [address] PCP - General Family Medicine 04/05/24 Service Advocate Contact Relationship Specialty Start [place] [address] [place] [phone] PCP - General Family Medicine 04/05/24 Service Advocate Contact Relationship Specialty Start [place] [address] [place] [id number] PCP - General Family Medicine 04/05/24 Service Advocate Contact Relationship Specialty Start Date End Date Antionette Benitez DO [address] [place] [phone] PCP - General Family Medicine 04/05/24 Service Advocate Contact Relationship Specialty Start Date End Date Antionette Benitez DO [address] [place] [phone] PCP - General Family Medicine 04/05/24 Service Advocate Contact Relationship Specialty Start [place] [address] [place] [address] PCP - General Family Medicine 04/22/24 Team Status: Active Member Role Status Dates NON STAFF Primary Care Provider Active Team Status: Inactive Member Role Status Dates Myesha Caceres DO Attending Provider Active Start: July 23, 2024 End: July 23, 2024 NON STAFF Primary Care Provider Active Start: July 23, 2024 End: July 23, 2024 Service Advocate Contact Relationship Specialty Start [place] [address] [place] [address] PCP - General Family Medicine 04/22/24 Tania Youngblood PA [address] [address] Physician [employer]ch [employer] Neurology 08/12/24 Service Advocate Contact Relationship Specialty Start [place] [address] [place] [address] PCP - General Family Medicine 04/22/24 Tania Youngblood PA [address] [facility] [address] [place] [address] Physician Torch [employer] Neurology 08/12/24 Team Status: Inactive Member Role Status Dates NON STAFF Primary Care Provider Active Start: August 22, 2024 End: August 22, 2024 Merry Alvarez APRN Attending Provider Active S tart: August 22, 2024 End: August 22, 2024 Team Status: Inactive Member Role Status Dates Merry Alvarez APRN Attending Provider Active S tart: August 22, 2024 End: August 22, 2024 Service Advocate Contact Relationship Specialty Start Date End Date Ref Prov, [place] [address] PCP - General 06/21/24 Service Advocate Contact Relationship Specialty Start Date End Date Ref Prov, [place] [address] PCP - General 06/21/24 Team Status: Inactive Member Role Status Dates Merry Alvarez APRN Attending Provider Active S tart: August 22, 2024 End: August 22, 2024 PHYSICIAN NO FAMILY Primary Care Provider Active Start: August 22, 2024 End: August 22, 2024 Team Status: Inactive Member Role Status Dates Sarah Puri APRN Attending Provider Active Start: October 28, 2024 End: October 28, 2024 NON STAFF Primary Care Provider Active Start: October 28, 2024 End: October 28, 2024 Service Advocate Contact Relationship Specialty Start Date End Date Ref Prov, [place] [address] PCP - General 06/21/24 Service Advocate Contact Relationship Specialty Start Date End Date Ref Prov, [place] [address] PCP - General 06/21/24 Goals (unrecognized section and content) Goals may be documented in a n alternate section FOR RECORDS PERTAINING TO PATIENTS WHO ARE [...] BE BASED ON THE PRIMARY CLINICAL RECORDS. [facility] [employer] [facility]. provides no warranty or guarantee of the accuracy or completeness of information in this document.
--- NOTE | 2024-11-09 22:00 | ECG_ITS ---
[facility] Test Date: 2024-11-09 Pat Name: TRAVON RODRIGUEZ Department: Room: - Gender: Female Shield Operator: : 2005 Requested By: Jb Miller Order Number: [id number] Reading MD: RADHA FREEMAN M.D. Measurements Intervals [place] Rate: 70 P: 58 KS: 138 QRS: 86 QRSD: 82 T: 23 QT: 374 QTc: 395 Interpretive Statements 1100 Sinus rhythm 1102 Sinus arrhythmia 9110 normal ECG Compared to ECG 04/11/2024 22:05:35 No significant changes Electronically Signed On 11-10-2024 15:37:49 EDT by RADHA FREEMAN M.D.
--- NOTE | 2024-11-09 22:58 | ED.CHESTPAI1 ---
HPI - Chest Pain General Chief Complaint: Chest Pain Stated Complaint: CHEST PAIN Time Seen by Provider: 11/09/24 21:59 Source: patient Mode of arrival: walk-in Limitations: no limitations History of Present Illness HPI narrative: cc - chest pain 4 days ago the patient developed midsternal chest pain while she was laying on her right side in bed. She had been coughing over the last 7 to 8 days prior with a sinus infection that had gotten down toward her chest. She had been put on antibiotics and that has since improved. The pain initially was intermittent and short acting, a dull achy, sometimes throbbing pain, that was mild initially. It initially was nonradiating but over the last 36 hours, she told me that the pain has been there for nonstop . It is worse with deep breaths and certain movements of the torso. She does have some history of reflux type symptoms but taking Tums did not help with this pain. No fever or chills. No GI or symptoms, aside from her normal constipation, which is chronic. She tried taking a couple half tabs of naproxen since the onset of the pain but does not think that it helped much. She admits that her anxiety is causing her to perseverate on the pain, which she believes may be manifesting as a constant pain rather than intermittent as it was before. No recent fall or injury or other activity that may account for the pain Related Data Home Medications ?Medication ?Instructions ?Recorded ?Confirmed fluoxetine 10 mg capsule (Prozac) 10 mg PO DAILY 04/11/24 11/09/24 hydroxyzine DAILY 04/11/24 levothyroxine 25 mcg tablet 25 mcg PO DAILY 11/09/24 11/09/24 Allergies Allergy/AdvReac Type Severity Reaction Status Date / Time ciprofloxacin (From Cipro) Allergy Unknown Anxiety Verified 04/11/24 22:10 PFSH PFSH Social History Little interest or pleasure in doing things: not at all Feeling down, depressed, or hopeless: not at all Exam Narrative Exam Narrative: Nurses notes and vital signs reviewed and patient is not hypoxic. afebrile General: Well-appearing and in no apparent distress. Skin: Warm, dry, no pallor noted. No rash. Head: Normocephalic, atraumatic. Eye: Pupils are equal, round and EOMI. No scleral icterus. Ears, Nose, Mouth, and Throat: Oral mucosa is moist Cardiovascular: Regular Rate and Rhythm without murmur, gallop or rub. Respiratory: No accessory muscle use or respiratory distress. Lungs are clear to auscultation, no wheezing, rales or rhonchi Chest Wall: tenderness to palpation along the sternum and in the areas in which the patient describes radiation of her pain with certain movement. No crepitus or subcutaneous emphysema is noted. No palpable fracture. Musculoskeletal: normal ROM, no extremity edema/swelling GI: Abdomen is soft, non-distended. Normal bowel sounds. No tenderness to palpation. No rebound, guarding, or rigidity noted. Neurological: A&O x4. No cranial nerve dysfunction observed. No truncal ataxia. Moves all extremities. Sensation intact. Psychiatric: Cooperative and interactive. Normal mood and affect. Constitutional Vital Signs, click to edit/add: Last Vital Signs Temp 98.8 F 11/09/24 21:59 Pulse 79 11/09/24 21:59 Resp 16 11/09/24 21:59 BP 150/97 H 11/09/24 21:59 Pulse Ox 100 11/09/24 21:59 O2 Del Method Room Air 11/09/24 21:59 Course Vital Signs Vital signs: Vital Signs Temperature 98.8 F 11/09/24 21:59 Pulse Rate 79 11/09/24 21:59 Respiratory Rate 16 11/09/24 21:59 Blood Pressure 150/97 H 11/09/24 21:59 Pulse Oximetry 100 11/09/24 21:59 Oxygen Delivery Method Room Air 11/09/24 21:59 Temperature 98.8 F 11/09/24 21:59 Pulse Rate 79 11/09/24 21:59 Respiratory Rate 16 11/09/24 21:59 Blood Pressure 150/97 H 11/09/24 21:59 Pulse Oximetry 100 11/09/24 21:59 Oxygen Delivery Method Room Air 11/09/24 21:59 MDM - Chest Pain MDM Narrative Medical decision making narrative: Patient was placed on net developer consultant and EKG obtained. Portable chest x-ray obtained. EKG and chest x-ray are unremarkable. The patient's exam is consistent with chest wall/musculoskeletal etiology. Patient was given reassurance and discharged home with instruction to take Tylenol as needed for pain. She sees her primary care physician regarding her hypothyroidism but her levels have been okay recently and her symptomatology is not consistent with a thyroid exacerbation. Heart Score History: Slightly/Non-Suspicious ECG: Normal Age: <45 years Risk Factors: No Risk Factors Troponin: <Normal Limit Total Heart Score Recommendations & Risks:: 0 Discharge Plan Discharge Chief Complaint: Chest Pain Clinical Impression: Anterior chest wall pain Patient Disposition: Home, Self-Care Time of Disposition Decision: 23:03 Prescriptions / Home Meds: No Action hydroxyzine 25 mg DAILY fluoxetine [Prozac] 10 mg capsule 10 mg PO DAILY levothyroxine 25 mcg tablet 25 mcg PO DAILY Print Language: Algerian Instructions: Chest Wall Pain (ED) Referrals: Physician,Non-Staff, MD [Primary Care Provider] - 1 week
== END 2024-11-09 23:36 | disposition home or self-care (01) ==
PROVIDERS: Emergency Provider Emergency Medicine; PCP Family Medicine
DX: R07.89 Other chest pain (principal); F41.9 Anxiety disorder, unspecified
CPT/HCPCS: 71045; 93005; 99284

== ENCOUNTER 2025-02-09 14:41 | Emergency (ER) | payer OTHER, SELFPAY ==
[2025-02-09] VITALS (8 sets, daily range): BP systolic 122–131; BP diastolic 86; PULSE 60–89; TEMP 37.5; O2SAT 96; BMI 24.1
--- OUTSIDE RECORDS SUMMARY | 2025-02-09 14:55 | XMS_ITS | CCD ---
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 ANTIONETTE BENITEZ Primary Care Physic cass ANTIONETTE BENITEZ Primary Care Unavailable Hermelindo Howard Attending Unavailable Antionette Benitez MD Primary Care Provider Unavailable Primary Care Provider UnavailKalyn Pollock DO Primary Care Provider IAN VASQUEZ Attending Unavailable IAN VASQUEZ Referring Unavailable IAN VASQUEZ Attending Unavailable IAN VASQEUZ Referring Unavailable REF PROV, NOT IN SYSTEM Primary Care Unavaila Myesha Canales DO Attending Provider [phone] NON STAFF Primary Care Provider UnavailTania Ramirez Unavailable MYESAH CACERES Attending Unavailable MYESHA CACERES Referring Unavailable TANIA YOUNGBLOOD Attending Unavailable TANIA YOUNGBLOOD Referring Unavailable Merry Alvarez APRN Attending Provider [phone] Myesha Caceres Admitting Unavailab Myesha Brito Attending Unavailab le NON STAFF Primary Care Unavailable Merry Alvarez Admitting Unavailable Merry Alvarez M Attending Unavailable NO FAMILY, PHYSICIAN Primary Care Unavailable Unavailable Primary Care Provider Unavailabl e Ref Prov, Not In System Primary Care Provider Un available NON STAFF Primary Care Provider Unavailabl e Antonio Merry MCCALL Attending Provider [phone] NO FAMILY, PHYSICIAN Primary Care Provider Unava ilable Sarah Puri APRN Attending Provider [phone] KALYN GILMAN Referring Unavailable KALYN GILMAN Primary Care Unavailable JULIUS CASTRO Referring Unavailable TANVI SOMMER Attending Unavailable REF PROV, NOT IN SYSTEM Referring Unavaila ble REF PROV, NOT IN SYSTEM Primary Care Unavaila ble RONEY ABDI Attending Unavailable BENITEZ, ANTIONETTE Primary Care Unavailable JEREMIAS SILVA Attending Unavailable TONY RODARTE Admitting Unavailable FABBY BO Attending Unavailable FABBY BO Attending Unavailable SADIE LOMBARDO Attending Unavailable JEANETTE HAWTHORNE Attending Unavailable SAMIR SAUNDERS Attending Unavailable BENITEZ, ANTIONETTE N Primary Care Unavailable BENITEZ, ANTIONETTE N Attending Unavailable BENITEZ, ANTIONETTE N Attending Unavailable BENITEZ, ANTIONETTE N Primary Care Unavailable BENITEZ, ANTIONETTE N Primary Care Unavailable BENITEZ, ANTIONETTE N Referring Unavailable BENITEZ, ANTIONETTE N Attending Unavailable BENITEZ, ANTIONETTE N Primary Care Unavailable BENITEZ, ANTIONETTE N Attending Unavailable BENITEZ, ANTIONETTE N Primary Care Unavailable SELF Referring Unavailable BENITEZ, ANTIONETTE N Primary Care Unavailable BENITEZ, ANTIONETTE N Primary Care Unavailable BENITEZ, ANTIONETTE N Referring Unavailable BENITEZ, ANTIONETTE N Primary Care Unavailable BENITEZ, ANTIONETTE N Attending Unavailable BENITEZ, ANTIONETTE N Primary Care Unavailable BENITEZ, ANTIONETTE N Referring Unavailable BENITEZ, ANTIONETTE N Primary Care Unavailable BENITEZ, ANTIONETTE N Attending Unavailable Allergies Allergy Classification Reported Allergen(s) Allergy Type Date of Onset Reaction(s) Facility (20 sources) Ciprofloxacin; Translations: [ciprofloxacin] Drug Allergy 4 Other: See Comments, Palpitations, Other [facility] (2 sources) Ciprofloxacin; Translations: [Cipro] Drug Allergy [facility] Repository (1 source) Ciprofloxacin Drug Allergy [facility] Repository Medications Current Medications Medication Drug Class(es) Dates Sig (Normalized) Sig (Original) [id number] 200 actuat albuterol 0.09 mg/actuat metered dose [...] bedtime. 04/02/2024 05/07/2024 Discontinued Start: 11-20-2023 End: 01-08-2025 ARIPiprazole (ABILIFY) 2 mg tablet Take 2 [...] oral tablet (1 source) alpha-Adrenergic Agonist, Uncompetitive M-hxwtwr-O-aspartate Receptor Antagonist, Sigma-1 Agonist Start: 10-28-2024 take 4 tablets by mouth every twenty-four hours as needed Alyynkomrmzafzj-Ap-Jewijqxdhzx (Capmist Dm) 60-15-400 mg tablet Active 1 [...] the morning. 21 tablet 12 10/24/2024 Active fluconazole 150 mg oral tablet (1 source) Azole Antifungal Start: 12-04-2024 End: 12-05-2024 fluconazole (Diflucan) 150 m g tablet Indications: Burning with urination Take 1 tablet (150 mg) by mouth see administration instructions for 1 day. Take one tab now. Repeat in 7 days if symptoms persist. 2 tablet 12/04/2024 12/05/2024 Active FLUoxetine 10 mg oral capsule (20 sources) Serotonin Reuptake Inhibitor Start: 04-21-2024 Prozac Oral, Daily, Refills( s) 0 Start Date: 04/21/24 Status: Ordered Start: 03-27-2024 End: 01-08-2025 take 1 capsule by mouth once FLUoxetine (PROZAC) 10 mg capsule Take 1 capsule by mouth every afternoon. 03/27/2024 01/08/2025 Discontinued (Other) End: 11-30-2023 FLUoxetine (PROzac) 40 mg ca [...] .MEDSUPPLY October 28, 2024 12:00am As directed lamoTRIgine 25 mg oral tablet (1 source) Mood Stabilizer, Anti-epileptic Agent lamoTRIgine (LAMICTAL) 25 mg tablet Take 25 mg by mouth as directed. Active levothyroxine sodium 0.025 mg oral tablet (20 sources) l-Thyroxine Start: 05-07-2024 End: 07-02-2025 take 1 tablet by mouth once daily levothyroxine (SYNTHROID) 25 mcg tablet Indications: Subclinical hypothyroidism Take 1 tablet by mouth once daily. 90 tablet 3 07/02/2024 07/02/2025 Active midodrine hydrochloride 5 mg oral tablet (12 sources) alpha-Adrenergic Agonist Start: 06-19-2024 End: 10-24-2024 [...] Substitution Allowed naproxen 500 mg oral tablet (14 sources) Nonsteroidal Anti-inflammatory Drug Start: 06-13-2024 End: 12-10-2024 take 1 tablet by mouth once daily as needed for headache naproxen (NAPROSYN) 500 mg tablet Indications: Cervicogenic headache Take 1 tablet by mouth once daily as needed (Headache). 30 tablet 5 06/13/2024 Active Start: 05-07-2024 End: 06-06-2024 take 1 tablet by mouth once daily as needed for headache naproxen (NAPROSYN) 500 mg tablet Indications: Cervicogenic headache Take 1 tablet by mouth once daily as needed (Headache). 30 tablet 05/07/2024 06/06/2024 Active nitrofurantoin, macrocrystals 25 mg / nitrofurantoin, monohydrate 75 mg oral capsule (1 source) Nitrofuran Antibacterial Start: 12-04-2024 End: 12-11-2024 take 1 capsule by mouth twice daily nitrofurantoin, macrocrystal-monohydrate, (Macrobid) 100 mg capsule Indications: Burning with urination Take 1 capsule (100 mg) by mouth 2 times a day for 7 days. 14 capsule 12/04/2024 12/11/2024 Active phenazopyridine hydrochloride 200 mg delayed release [...] unspecified; Translations: [Anxiety] Onset: 02-26-2016 04-05-2024 Chronic Bacterial infection; unspecified site (3 sources) Chlamydial infection; Translations: [Chlamydial infection, unspecified] Onset: 01-30-2025 01-08-2025 Episodic Cardiac dysrhythmias (3 sources) Postural orthostatic tachycardia syndrome ; Translations: [Postural orthostatic tachycardia syndrome] 08-22-2024 Chronic Epilepsy; convulsions (10 sources) Seizure; Translations: [Unspecified convulsions] Onset: 07-23-2024 06-04-2024 Episodic Impulse control disorders, NEC (8 sources) Trichotillomania; 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 02-13-2017 Chronic Inflammatory diseases of female pelvic organs (3 sources) Bacterial vaginosis; Translations: [Acute vaginitis] Onset: 01-30-2025 07-09-2024 Episodic Malaise and fatigue (2 sources) Fatigue; Translations: [Other fatigue] Onset: 01-30-2025 01-08-2025 Episodic Menstrual disorders (1 source) Missed period; Translations: [Irregular menstruation, unspecified] 10-23-2024 Chronic Miscellaneous mental health disorders (6 sources) Eating disorder, unspecified; Translations: [Eating disorder] Onset: 08-20-2018 12-18-2021 Chronic Mood disorders (11 sources) Depressive disorder; Translations: [Depressive disorder, not elsewhere classified] Onset: 01-08-2025 12-17-2021 Chronic Nonspecific chest pain (1 source) [...] vagina] 07-08-2024 Episodic Other female genital disorders (1 source) Burning sensation of vagina; Translations: [Other specified conditions associated with female genital organs and menstrual cycle] 12-26-2024 Episodic Other gastrointestinal disorders (1 source) Acute diarrhea 12-17-2021 Episodic Other screening for suspected conditions (not mental disorders or infectious disease) (2 sources) Patient encounter status; Translations: [Encounter for test, result unknown] Onset: 10-24-2024 10-24-2024 Episodic Other upper respiratory infections (12 sources) Acute bacterial pharyngitis; Translations: [Acute pharyngitis due to other specified organisms] Onset: 10-24-2024 08-22-2024 Episodic Personality disorders (18 sources) Borderline personality disorder; Translations: [Borderline personality [...] 10-24-2024 Episodic Suicide and intentional self-inflicted injury (3 sources) Personal history of self-harm; Translations: [Suicidal ideations] Onset: 08-20-2018 Episodic Suicide and intentional self-inflicted injury (4 sources) Poisoning by other drugs, medicaments and biological substances, intentional self-harm, initial encounter; Translations: [PSN OTH RX MED BIO SUBS SF-HRM INIT] Onset: 08-15-2018 Thyroid disorders (19 sources) Hypothyroidism; Translations: [Subclinical hypothyroidism] Onset: 05-07-2024 04-21-2024 Chronic Unclassified (2 sources) SA T14.91XA. 12-18-2021 Comment on above: SA T14.91XA. Unclassified (1 source) Laceration of right thigh 12-17-2021 Unclassified (1 source) Eating disorder, unspecified type 12-18-2021 Unclassified (1 source) Rash Onset: 11-30-2023 Unclassified (2 sources) New Patient Onset: 06-19-2024 Unclassified (1 source) Other Onset: 12-26-2024 Unclassified (1 source) Contact with and (suspected) exposure to covid-19; Translations: [Contact with and (suspected) exposure to covid-19] Onset: 10-25-2024 Unclassified (1 source) Blood Pressure Onset: 08-29-2024 Past or Other Problems Problem Classification Problem Date Documented Date Episodic/Chronic Abdominal pain (2 sources) Right flank pain; Translations: [Unspecified abdominal pain] Onset: 07-08-2024 07-08-2024 Episodic Cardiac dysrhythmias (20 sources) Palpitations; Translations: [Palpitations] Onset: 04-10-2024 04-10-2024 Episodic Genitourinary symptoms and ill-defined conditions (7 sources) Bacteriuria; Translations: [Other nonspecific findings on examination of urine] Onset: 09-21-2024 12-17-2021 Episodic Headache; including migraine (14 sources) Cervicogenic headache; Translations: [Cervicogenic headache] Onset: 05-07-2024 05-07-2024 Episodic Immunizations and screening for infectious disease (11 sources) Encounter for immunization; Translations: [Vaccination needed] Onset: 11-30-2023 11-30-2023 Episodic Mood disorders (9 sources) Mood disorders Onset: 02-13-2018 12-18-2021 Other circulatory disease (1 source) Elevated blood-pressure reading, without diagnosis of hypertension; Translations: [Elevated blood pressure reading without diagnosis of hypertension] Onset: 04-10-2024 Episodic Other female genital disorders (2 sources) Other specified noninflammatory disorders of vagina; Translations: [Other specified noninflammatory disorders of vagina] Onset: 07-08-2024 Episodic Syncope (20 sources) Syncope and collapse; Translations: [Syncope and collapse] Onset: 04-21-2024 Episodic Unclassified (1 source) SA T14.91XA 12-18-2021 Comment on above: SA T14.91XA Urinary tract infections (9 sources) Acute cystitis; Translations: [Acute cystitis with hematuria] Onset: 03-16-2024 03-16-2024 Episodic Results Test Name Value Interpretation Reference Range Facility C. trachomatis+N. gonorrhoea e DNA FERMÍN+probe Ql (Unsp spec)on 01-30-2025 C. trachomatis rRNA FERMÍN+probe Ql (Unsp spec) Not detected Normal Not detected [facility] Comment on above: Order Comment: Speci men Type: SWABOrdering Facility: [facility] Address: [address] [place] [address] [place] [address] Performed By: #### 3 6902-5, CVTV ####[facility] LABCLIA [id number] [place] [address] [place] N. gonorrhoeae rRNA FERMÍN+probe Ql (Unsp spec) Not detected Normal Not detected [facility] Comment on above: Order Comment: Speci men Type: SWABOrdering Facility: [facility] Address: [address] [place] [address] Performed By: #### 3 6902-5, CVTV ####[facility] LABCLIA [id number] [place] [address] [place] RENE/TRICHOMONAS NAATon 1 C. glabrata RNA FERMÍN+probe Ql (Vag fld) Not detected Normal Not detected [facility] Comment on above: Order Comment: Speci men Type: SWABOrdering Facility: [facility] Address: [address] [place] [address] Performed By: #### 3 6902-5, CVTV ####[facility] LABCLIA [id number] [address] [place] Rene sp DNA FERMÍN+probe Ql (Vag fld) Not detected Normal Not detected [facility] Comment on above: Order Comment: Speci men Type: SWABOrdering Facility: [facility] Address: [address] [place] [address] Result Comment: The Rene species group target includes C. albicans, C. tropicalis, C. parapsilosis, and C. dubliniensis. Performed By: #### 3 6902-5, CVTV ####[facility] LABCLIA [id number] [place] [address] [place] T. vaginalis DNA FERMÍN+probe Ql (Unsp spec) Not detected Normal Not detected [facility] Comment on above: Order Comment: Speci men Type: SWABOrdering Facility: [facility] Address: [address] [place] [address] Performed By: #### 3 6902-5, CVTV ####[facility] LABCLIA [id number] [place] [address] [place] Ferritin SerPl-mCncon 2024 Ferritin [Mass/Vol] 29.9 ng/mL Normal 14.7-205.1 [facility] Comment on above: Order Comment: Speci men Type: BLOOD SPECIMENOrdering Facility: [facility] Address: [address] [place] [address] Performed By: #### 2 276-4, 2132-9, 60374-5, 3016-3 ####[facility] LABCLIA [id number] [place] [id number] [place] Iron and Iron binding capaci panel 01-30-2025 Iron [Mass/Vol] 89 ug/dL Normal 41-186 [facility] Comment on above: Order Comment: Speci men Type: BLOOD SPECIMENOrdering Facility: [facility] Address: [address] [place] [address] Performed By: #### 2 276-4, 2132-9, 61177-1, 3016-3 ####[facility] LABCLIA [id number] [place] [address] [place] Iron binding capacity [Mass/Vol] 444 ug/dL High 232-386 [facility] Comment on above: Order Comment: Speci men Type: BLOOD SPECIMENOrdering Facility: [facility] Address: [address] [place] [address] Performed By: #### 2 276-4, 2132-9, 57050-5, 3016-3 ####[facility] LABCLIA [id number] [place] [id number] [place] Iron/TIBC [Molar ratio] 20.0 % Normal 15.0-57.0 [facility] Comment on above: Order Comment: Speci men Type: BLOOD SPECIMENOrdering Facility: [facility] Address: [address] [place] [address] Performed By: #### 2 276-4, 2132-9, 05864-1, 3016-3 ####[facility] LABCLIA [id number] [place] [id number] [place] TSH SerPl-aCncon 01-30-2025 TSH Qn 3.600 m[IU]/L Normal 0.270-4.200 [facility] Comment on above: Order Comment: Nahed pruitt Type: BLOOD SPECIMENOrdering Facility: [facility] Address: [address] [place] [address] Result Comment: If t he patient is , TSH reference range varies by gestational period: First Trimester (weeks 9-12): 0.180-2.990 mIU/L Second Trimester: 0.110-3.980 mIU/L Third Trimester: 0.480-4.710 mIU/L Malcolm Molina et al. A Practical Approach for the Verifications and Determination of Site- and Trimester-Specific Reference Intervals for Thyroid Function tests in . Thyroid, 2019:29:3:412-420. Rubio Jade, et al. 2017 Guidelines of the [place] Thyroid Association for the Diagnosis and Management of Thyroid Disease during and the . Thyroid, 2017:27:3:315-389. Performed By: #### 2 276-4, 2132-9, 35588-8, 3016-3 ####[facility] LABCLIA [id number] [place] [id number] [place] Vit B12 SerPl-ncon 025 Cobalamin (Vitamin B12) [Mass/Vol] 520 pg/mL Normal 232-1245 [facility] Comment on above: Order Comment: Nahed pruitt Type: BLOOD SPECIMENOrdering Facility: [facility] Address: [address] [place] [address] Performed By: #### 2 276-4, 2132-9, 60347-8, 3016-3 ####[facility] [id number] [place] [id number] [facility] [place] CNOVon 01-08-2025 CNOV Office Visit (FMIUNI ) -------- TRAVON STALLWORTH ([id number]) 1 F Date Time Provider Department 01/08/25 11:00 AM ANTIONETTE BENITEZ FMIUNI During your visit today, we recorded the following information about you: Temperature Pulse Blood pressure Weight 98.1 degrees 75/minute 114/79 72.9 kg Krishna Dan MA 01/08/2025 12:22 PM Signed Hospital follow up from [facility] end of November for mental health issues. STI questions (completed antibiotic recently) Thyroid questions due to fatigue. Antionette Benitez DO 01/08/2025 12:22 PM Signed Subjective Travon Stallworth is a 19-year-old female with a history of BPD, bipolar, and hypothyroidism, presenting for follow-up after a recent psychiatric hospitalization and treatment for chlamydia and BV. Travon was recently hospitalized for 4 days at [facility] in [place] after self-admitting herself for SI, BPD. She self-admitted due to difficulties balancing school and work, family issues, and discontinuation of Prozac and Abilify for 2 months without consulting her psychiatrist. She reports feeling overwhelmed and experiencing suicidal ideation, leading to her decision to seek inpatient care. During her hospitalization, other psych meds discontinued and she was prescribed lamotrigine, which she has been taking for 2 weeks, currently at a dose of 50 mg. She is also taking levothyroxine 25 mcg for hypothyroidism. Travon was diagnosed with chlamydia and BV during her hospital stay and was prescribed doxycycline and metronidazole for 1 week. She completed the antibiotic course 4-5 days ago but reports vomiting one dose. She denies any current symptoms of chlamydia or BV and has not had intercourse for approximately 3 months. She expresses concern about potential reinfection due to the missed dose. Travon reports weight gain and increased fatigue, which she attributes to her hypothyroidism and possibly the lamotrigine. She requests a thyroid function test to evaluate her current thyroid status. Constitutional: (+) weight gain, (+) fatigue Gastrointestinal: (+) vomiting Objective Blood pressure 114/79, pulse 75, temperature 36.7 ?C (98.1 ?F), weight 72.9 kg (160 lb 11.5 oz), last menstrual period 07/30/2024, SpO2 99%. GENERAL: NAD, alert and oriented SKIN: unremarkable, [...] intact, normal gait, no involuntary motions Labs: (Testing date not provided) - Blood test for chlamydia: Positive - Laboratory analysis for bacterial vaginosis: Positive - No anemia reported Assessment AND Plan 1. Bipolar affective disorder, remission status unspecified (HCC) (F31.9) 2. Borderline personality disorder (HCC) (F60.3) Recent psychiatric hospitalization due to medication non-adherence and psychosocial stressors. Can not view notes, but suspect they diagnosed her with bipolar depression given decision to initiate lamotrigine. - Continue lamotrigine as prescribed; currently titrating dose upwards. Recommended she reestablish with her psychiatrist to discuss. - Educated on expected delayed onset of therapeutic effect. 3. Chlamydia (A74.9) 4. Bacterial vaginosis (N76.0) Recently completed 7-day course of doxycycline 100 mg BID for chlamydia and metronidazole for BV; one dose of doxycycline was vomited, but regimen otherwise completed. - Advised to wait until after January 22 (at least one month post-treatment) before retesting to avoid false positives from residual non-viable organisms. - Order for self-collected vaginal swab for chlamydia and gonorrhea to be performed at [facility] after January 22. - Advised to use condoms with any sexual partners until negative test results are confirmed. 5. Fatigue, unspecified type (R53.83) Fatigue and weight gain may be related to hypothyroidism, lamotrigine side effects, or other causes. - Order TSH, B12, and iron studies to evaluate for hypothyroidism, vitamin B12 deficiency, and iron deficiency anemia. Dr. Antionette Benitez, Recording using [employer] software for draft documentation of the visit was discussed with the patient/authorized marketing development representative; all questions welcomed and answered. Patient/authorized marketing development representative agreed to proceed Allergies As of Date: 01/08/2025 Noted Allergy Reaction CIPROFLOXACIN (more content not included)... Normal [facility] [id number] 12-20-2024 [id number] 1540- DRESSMAKER GARMENT FITTER saw oskar berger to discuss aftercare plans and treatment post discharge. Patient was reminded about appointment with Jorgito Coyle on 12/30/24 at 1215pm. Patient denied current SI/HI/AVH. Patient denied having any access to weapons or anything that they can use to harm themselves post discharge from the hospital. Patient reported that their mother would be picking them up from the hospital and taking them back home. Patient denied needing anything further from [facility] at the time. DRESSMAKER GARMENT FITTER informed patient's nurse about conversation. [facility] CNPNon 12-20-2024 [facility] (EXPUNI) -------- TRAVON STALLWORTH ([id number]) 1 F Date Time Provider Department 12/20/24 ANTIONETTE BENITEZ EXPUNI During your visit today, we recorded the following information about you: Ashley Warren 12/20/2024 7:58 AM Signed Left patient a vm AND my chart. If she calls, please let me know so I can talk to her. My extension on [employer] is [phone]. Allergies As of Date: 12/20/2024 Noted Allergy Reaction CIPROFLOXACIN 04/05/2024 14 - Other: See Comments Comments: Heart palp, hard time breathing, shaking Date Reviewed: 08/29/2024 Reviewed by: María Wayne MA - Fully Assessed Prescriptions as of 12/20/2024 - ARIPiprazole (ABILIFY) 2 mg tablet Take [...] every afternoon. Problem List As Of Date 12/20/2024 Noted Resolved Anxiety [F41.9] 02/26/2016 Borderline personality disorder (HCC) [F60.3] 04/05/2024 Vasovagal syncope [R55] 05/07/2024 Sinus tachycardia [R00.0] 05/07/2024 Subclinical hypothyroidism [E03.8] 05/07/2024 Cervicogenic headache [G44.86] 05/07/2024 Encounter Status:Closed by ASHLEY WARREN on 12/20/24 Normal [facility] Nursing Noteon 12-20-2024 Nursing Note Patient has been out in the lobby with her peers and interacting with them most of the day. She however is getting a little anxious because a lot of her peers are getting discharged and she doesn't have her paper work yet. Will try to help patient express her needs. Normal [facility] 3012-19-2024 30 Problem: IP Depressi on Goal: LTG: Travon will demonstrate decreased symptoms of depression Outcome: Progressing Note: Patient out on unit watching television and social with peers Goal: LTG: Travon will exhibit compliance with therapy Outcome: Progressing Note: Patient compliant with evening medications [facility] [id number] 12-19-2024 [id number] I spoke with patient during group at 10:30 am. I provided information on PHP/IOP services at [facility]. Ayaan Alfred [facility] [place] [facility] 12-19-2024 94 Department: [facility] Subacute Psychiatric Unit 7 Group Topic: Art Therapy Group Date: 12/19/2024 Start Time: 1400 End Time: 1530 Facilitators: SEAN To Number of Participants: 5 Group Name: Art Therapy; Both Kinds of Days; Coping Mechanisms Treatment Modality: Art Therapy, Butler Therapy, Patient-Centered Therapy, Psychoeducation, and Skills Training Purpose: enhance coping skills, express feelings, increase insight or knowledge, and reinforce self-care Summary: Facilitated group re: Both Kinds of days. Therapist facilitated discussion of quote prompt to engage group in discussin coping mechanisms and self-acceptance when dealing with both difficult and not so difficult times. Therapist facilitated art therapy task: create two sides of yourself, one dealing with difficult days, one dealing with not so difficult days, on body templates provided. Therapist facilitated art making experience. Therapist facilitated processing of individual body form art. Name: Travon Stallworth Date of : 2005 MR: [id number] Mental Status Exam: Appearance: Appropriately dressed and groomed Mood: Euthymic Affect: Appropriate Behavior: Pleasant, Cooperative, Engaging, and Interactive Alertness: Alert Speech: Appropriate Cognition: Intact Thought Process: Goal-directed Thought Content: No evidence of psychosis/delusions Level/Quality of Participation: active, attentive, cooperative, engaged, and motivated Interactions with others: Sociable, supportive, and asked thoughtful questions Interventions utilized were: Building rapport and engagement, Empathic listening, Psychoeducation, Modeling/skills training, Art therapy, Expressive therapy, and Butler therapy Patient's Response to Intervention: Patient appropriately engaged in group discussion of quote prompt and dealing with both difficult and not so difficult times. Patient actively engaged in creating art consisting of the self reflecting both good and bad days. Patient actively engaged in processing of good and bad day body art images. Patient created one image outined in gold with a spiral in her brain, dark images over her chest and torso, and . Patient stated the first image represented what it's like to live her life the way she feels she has to for her family -always walking on eggshells, her brain spiraling, and always having to act a certain feminine way; and the second picture represents what it's like to still be confused, but also bot under the pressure of having to conform to such high expectations. Patient Problems: Progress Towards Goal(s): Moderate Additional Comments: None Next Step: Continue with current services Patients Problems: Patient Active Problem List Diagnosis Borderline personality disorder (CMS/HCC) (HCC) Chlamydia Bacterial vaginosis Urinary tract infection Eating disorder, unspecified Hypothyroidism Normal [facility] 94 Department: [facility] ACTIVITIES THERAPY Group Topic: Music Therapy Group Date: 12/19/2024 Start Time: 1030 End Time: 1100 Facilitators: Mira Bryant Number of Participants: 4 Group Name: song share Treatment Modality: Music therapy Purpose: enhance coping skills Summary: Pt was given the opportunity to share a song that has been helpful to them in a difficult time or makes them feel better with the group. Pt was asked to give feedback to peer choices. Discussed how music can be used as a coping skill and for emotional regulation and expression. Name: Travon Stallworth Date of : 2005 MR: [id number] Mental Status Exam: Appearance: Appropriately dressed and groomed Mood: Euthymic Affect: Full Behavior: Pleasant and Cooperative Alertness: Alert Speech: Appropriate Cognition: Intact Thought Process: Goal-directed Thought Content: No evidence of psychosis/delusions Level/Quality of Participation: active and attentive Interactions with others: gave feedback Interventions utilized were Building rapport and engagement song discussion Patient's Response to Intervention: Patient participated appropriately choosing a song and sharing with the group. Pt affect was bright and eye contact was good. Pt provided verbal support to peers and participated in group singing. Progress Towards Goal(s): Minimal Next Step: Continue with current services Patients Problems: Patient Active Problem List Diagnosis Suicidal ideation Normal [facility] 94 Department: [facility] Dual Diagnosis Unit 6 Group Topic: Defense Mechanisms Group Date: 12/19/2024 Start Time: 0900 End Time: 0945 Facilitators: SEAN Cooper Number of Participants: 3 Group Name: Dual Diagnosis Treatment Modality: Cognitive Behavioral Therapy Purpose: increase insight or knowledge Summary: The group members each introduced themselves and shared one goal they were working on today. The group read a meditation from the Language of Letting Go book on denial and how it is both a ?friend? and an ?enemy?. The group reviewed worksheet called ?The Change Curve? that shows how a person moves from denial, anger, and depression and into acceptance and integration. Name: Travon Stallworth Date of : 2005 MR: [id number] Mental Status Exam: Appearance: Appropriately dressed and groomed Mood: Anxious and Depressed Affect: Full Behavior: Cooperative Alertness: Alert Speech: Normal pace Cognition: Intact Thought Process: Goal-directed Thought Content: No evidence of psychosis/delusions Level/Quality of Participation: attentive Interactions with others: gave feedback Interventions utilized were Building rapport and engagement, Empathic listening, and Cognitive Behavioral Therapy (CBT) Patient's Response to Intervention: Pt came to group and was attentive. Pt shared that one goal she is working on is stay out of my room and communicate with more people Progress Towards Goal(s): Minimal Additional Comments: N/A Next Step: Continue with current services Patients Problems: Patient Active Problem List Diagnosis Suicidal ideation Normal [facility] Behavioral Health Treatment Planon 12-19-2024 Behavioral Health Treatment Plan Per ED Travon Stallworth is a 19 y.o. female who presents to the emergency department with chief complaint of suicidal ideation. Patient states that she has been planning for 3 weeks to kill herself by overdose of ariprazole fluoxetine and hydroxyzine. She has started hoarding these medications. She states she has felt extremely depressed and anxious recently due to stressors at home and has been skipping school and her job. ETOH, UDS Negative, negative From [employer] but goes to [facility] Lives with cousin Follow Up- TBD Consults- None [facility] SDOH Patient advocate-Pt aware of how to contact, and availability of advocate. Activities/Therapy- Encourage unit particiation, Assess for appropriateness of PHP/IOP. Nursing-Assessment every shift, and as needed. Monitor s/s of medication, sleep and appetite. Medication education. TCC-Follow up care Psychiatry-Daily assessment. Medication management, encourage compliance with unit participation, and follow up: DIAGNOSIS: Borderline Personality Disorder Other Cluster B Personality Traits Unspecified Eating Disorder, per history Hypothyroidism TREATMENT PLAN: #Borderline Personality Disorder #Other Cluster B Personality Traits -Start lamotrigine (Lamictal) 25 mg daily for mood stabilization -Travon will benefit most from consistent psychotherapy sessions, both during this admission and continued in the outpatient setting once acutely stabilized. If possible, she should participate in Dialectical Behavioral Therapy to target BPD. #Hypothyroidism -Continue home levothyroxine (Synthroid, Levoxyl) tablet 25 mcg daily #General Admission Orders/Recommendations - As needed medications ordered for agitation, anxiety, insomnia, pain, and constipation - Diet Order: Regular Adult Diet - Does not require 1:1 observation at this time - Precautions: None - Patient will be encouraged to attend groups and activities on the unit. They will discharged to the appropriate level of care when psychiatrically stable. - Discussed with the patient risk, benefit, alternative and common side effects for the proposed medication treatment. Patient consenting to the treatment. - Psychotherapy: Encourage participation in milieu and group therapy. Individual therapy as needed. - General patient/family education goals: - Patient will understand basic signs and symptoms - Patient will understand their role in recovery Normal [facility] CHLAMYDIA/GONORRHEAon 2024 CHLAMYDIA/GONORRHEA NEISSERIA GONORRHOEA E DNA PROBE Reference Not Detected Not Detected CHLAMYDIA TRACHOMATIS DNA PROBE (A) Reference Detected Not Detected ORDER COMMENTS: (A) Methodology: real-time PCR This test is intended for medical purposes only and is not intended for the evaluation of suspected sexual abuse or for other forensic purposes. In certain contexts, culture may be required to meet applicable laws and regulations for diagnosis of C. trachomatis and N. gonorrhoeae infections. Per 2014 CDC recommmendations, this test does not include confirmation of positive results by an alternative nucleic acid target. A negative result does not exclude the possibility of infection. A result of invalid indicates that a new specimen should be collected if clinically indicated. Normal [facility] Comment on above: Performed By: #### L [id number] ####Physical Therapist Technician: DUGLAS CASTILLO ([id number])[address] COMPLETE URINALYSIS WITH REF MAGUI TO CULTUREon 12-19-2024 BACTERIA (#/HPF) IN URINE Few Abnormal Negative [facility] Comment on above: Performed By: #### L [id number], [id number] ####Physical Therapist Technician: DUGLAS CASTILLO ([id number])[address] BILIRUBIN, TOTAL PRESENCE IN URINE Negative Normal Negative [facility] Comment on above: Performed By: #### L [id number], [id number] ####Physical Therapist Technician: DUGLAS CASTILLO ([id number])[facility])[address] [place] [address] Clarity (U) Slightly Cloudy Abnormal Clear [facility] Comment on above: Performed By: #### L [id number], [id number] ####Physical Therapist Technician: DUGLAS CASTILLO ([id number])[facility] [place] [address] Color (U) Yellow Normal Lt. Yellow [facility] Comment on above: Performed By: #### L [id number], [id number] ####Physical Therapist Technician: DUGLAS CASTILLO ([id number])[facility] ([facility])[address] [place] [address] GLUCOSE (MG/DL) IN URINE Normal Normal Normal (<70) [facility] Comment on above: Performed By: #### L [id number], [id number] ####Physical Therapist Technician: DUGLAS CASTILLO ([id number])[facility] ([facility])[address] [place] [address] HEMOGLOBIN PRESENCE IN URINE Negative Normal Negative [facility] Comment on above: Performed By: #### L [id number], [id number] ####Physical Therapist Technician: DUGLAS CASTILLO ([id number])[facility] [place] [address] Ketones Ql (U) Negative Normal Negative [facility] Comment on above: Performed By: #### L [id number], [id number] ####Physical Therapist Technician: DUGLAS CASTILLO ([id number])[facility] ([facility])[address] [place] [address] LEUKOCYTE ESTERASE PRESENCE IN URINE BY TEST STRIP 500 Gustavo/uL Abnormal Negative [facility] Comment on above: Performed By: #### L [id number], [id number] ####Physical Therapist Technician: DUGLAS CASTILLO ([id number])[facility] ([facility])[address] [place] [address] [place] MUCUS (#/LPF) IN URINE SEDIMENT Few Normal Negative [facility] Comment on above: Performed By: #### L [id number], [id number] ####Physical Therapist Technician: DUGLAS CASTILLO ([id number])[facility] ([facility])[address] [place] [address] [place] NITRITE PRESENCE IN URINE Negative Normal Negative [facility] Comment on above: Performed By: #### L [id number], [id number] ####Physical Therapist Technician: DUGLAS CASTILLO ([id number])[facility])[address] [place] [address] [place] pH (U) 6.5 [pH] Normal 5.0-8.0 [facility] Comment on above: Performed By: #### L [id number], [id number] ####Physical Therapist Technician: DUGLAS CASTILLO ([id number])[facility] ([facility])[address] [place] [address] Protein (U) [Mass/Vol] Negative Normal Negative [facility] Comment on above: Performed By: #### L [id number], [id number] ####Physical Therapist Technician: DUGLAS CASTILLO ([id number])[facility])[address] [place] [address] [place] RBC (#/HPF) IN URINE SEDIMENT 0-2 Normal 0-2 [facility] Comment on above: Performed By: #### L [id number], [id number] ####Physical Therapist Technician: DUGLAS CASTILLO ([id number])[facility])[address] [place] [address] Specific gravity (U) [Rel density] 1.022 Normal 1.005-1.030 [facility] Comment on above: Result Comment: KRYSTEN Monte COMMENTS: This specimen has been reflexed to urine culture. Performed By: #### L [id number], [id number] ####Physical Therapist Technician: DUGLAS CASTILLO ([id number])[facility] ([facility])[address] [place] [address] [place] SQUAMOUS EPITHELIAL CELLS (#/HPF) IN URINE SEDIMENT 11-25 Abnormal 3-5 [facility] Comment on above: Performed By: #### L [id number], [id number] ####Physical Therapist Technician: DUGLAS CASTILLO ([id number])[facility])[address] [place] [address] [place] UROBILINOGEN (MG/DL) IN URINE Normal Normal Normal (0-1) [facility] Comment on above: Performed By: #### L [id number], [id number] ####Physical Therapist Technician: DUGLAS CASTILLO ([id number])[facility] ([facility])[address] [place] [address] VOLUME OF URINE 8-12 mL Normal [facility] Comment on above: Performed By: #### L [id number], [id number] ####Physical Therapist Technician: DUGLAS CASTILLO ([id number])[facility] ([facility])[address] [place] [address] WBC (LEUKOCYTE) (#/HPF) IN URINE SEDIMENT 26-50 Abnormal 0-5 [facility] Comment on above: Performed By: #### L [id number], [id number] ####Physical Therapist Technician: DUGLAS CASTILLO ([id number])[facility] ([facility])[address] [place] [address] Consulton 12-19-2024 Consult Hospital Medicine Consult Patient - Travon Stallworth, Age - 19 y.o. - 2005 Room Number - [id number] A Consulting - Jeremias Silva MD Primary Care Phys[id number] Date of Admission - 12/17/2024 6:05 PM Hospital Day - 2 Reason for Consult: Medical Management HISTORY OF PRESENT ILLNESS: Travon is a 19 y.o. female pmhx bipolar disorder who was recently seen at urgent care prior to admission to [facility] diagnosed with UTI for dysuria. She was started on an antibiotic, completed 5 days of the 7 and was notified that she didn't have a uti and to stop antibiotics. Secondary to the antibiotic she developed vaginal candidiasis and was treated with Diflucan x 2 doses. She has history of bacterial vaginosis. States that her current symptoms are just dysuria. Denies fever or chills. She is avoiding urinating because it hurts. She has had multiple sexual partners. Last partner was 3 months ago, who she thinks also has slept with multiple partners. She has + white vaginal discharge. [facility] consulted for dysuria and vaginal discharge Past Medical History: Medical History[1] Past Surgical History: Surgical History[2] Medications: Scheduled PRN Scheduled Meds[3] PRN Meds[4] Continuous Continuous Meds[5] Allergies: Patient has no known allergies. Social History: Social History Socioeconomic History Marital status: Single Spouse name: Not on file Number of children: Not on file Years of education: Not on file Highest education level: Some college, no degree Occupational History Occupation: [employer] Employer: [employer] Tobacco Use Smoking status: Never Smokeless tobacco: Never Vaping Use Vaping status: Never Used Substance and Sexual Activity Alcohol use: Not Currently Drug use: Never Sexual activity: Defer Other Topics Concern Not on file Social History Narrative Not on file Social Drivers of Health Financial Resource Strain: Low Risk (12/18/2024) Overall Financial Resource Strain (CARDIA) Difficulty of Paying Living Expenses: Not hard at all Food Insecurity: No Food Insecurity (12/18/2024) Hunger Vital Sign Worried About Running Out of Food in the Last Year: Never true Ran Out of Food in the Last Year: Never true Transportation Needs: No Transportation Needs (12/18/2024) PRAPARE - Transportation Lack of Transportation (Medical): No Lack of Transportation (Non-Medical): No Physical Activity: Patient Declined (12/18/2024) Exercise Vital Sign Days of Exercise per Week: Patient declined Minutes of Exercise per Session: Patient declined Stress: Stress Concern Present (12/18/2024) [place] [employer] Occupational [employer] - Occupational Stress Questionnaire Feeling of Stress : To some extent Social Connections: Unknown (12/18/2024) Social Connection and Isolation Panel [NHANES] Frequency of Communication with Friends and Family: More than three times a week Frequency of Social Gatherings with Friends and Family: More than three times a week Attends Moravian Services: Patient declined Active Member of Clubs or Organizations: Patient declined Attends Club or Organization Meetings: Patient declined Marital Status: Never Intimate Partner Violence: Patient Declined (12/18/2024) Humiliation, Afraid, Rape, and Kick questionnaire Fear of Current or Ex-Partner: Patient declined Emotionally Abused: Patient declined Physically Abused: Patient declined Sexually Abused: Patient declined Housing Stability: Low Risk (12/18/2024) Housing Stability Vital Sign Unable to Pay for Housing in the Last Year: No Number of Times Moved in the Last Year: 0 Homeless in the Last Year: No Family History: Family History[6] REVIEW OF SYSTEMS: 10 point ROS obtained, as per HPI, otherwise NEG Physical Exam: Vitals: BP 124/81 Pulse 58 Temp 36.3 ?C (97.4 ?F) (Temporal) Resp 12 Ht 5' 4 (1.626 m) Wt 130 lb (59 kg) SpO2 100% BMI 22.31 kg/m? BMI Classification: Normal Weight (BMI 18.5-24.9) Pulse Ox: SpO2 Av.5 % Min: 97 % Max: 100 % Supplemental O2: Physical Exam Constitutional: Appearance: Normal appearance. HENT: Head: Normocephalic. Mouth/Throat: Mouth: Mucous membranes are moist. Abdominal: Tenderness: There is abdominal tenderness. Comments: SPT Genitourinary: Comments: Vaginal exam deferred, per patient white discharge Skin: General: Skin is warm and dry. Capillary Refill: Capillary refill takes less than 2 seconds. Neurological: General: No focal deficit present. Mental Status: She is alert and oriented to person, place, and time. LABS: No results found for this or any previous visit (from the past 24 hours). Urine Culture: No results found for this or any previous visit. IMAGING: See report Assessment Data: (CAT1) Reviewed 2 notes from different specialty or health system (each=1). (CAT1) Ordered 3 (more content not included)... Normal [facility] Nursing Noteon 12-19-2024 Nursing Note Patient is out on un it watching television and social with peers. Patient states she is doing good and expects to be discharged tomorrow. Patient is complaint with her scheduled Monodox this evening. Patient declined PRN medications. Patient denies SI/HI and hallucinations. Patient encouraged to notify staff with needs, will continue to monitor for safety. Normal [facility] Nursing Note Patient A & o X4, flowers s flat affect, cooperative with nursing care and medication compliant. Patient denied SI/HI/Hallucinations and contracted for safety. Patient voiced feeling depressed. Patient spoke to nurse about family having high expectations for patient growing up due to being the eldest and only girl, especially with school and career after college. Patient complained of burning with urination and white discharge, physician notified. Nurse place urine specimen container in patient bathroom. Patient educated on how to obtain specimen, will inform nurse when complete. Jeff Monte RN Normal [facility] Progress Noteon 12-19-2024 Progress Note Nutrition rescreen completed. Patient assigned a level 1. Normal [facility] Psych Noteon 12-19-2024 Psych Note Pt out in day area; social with peers. Pt c/o of vaginal burning. 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 Pt aware ATB to start tonight. Normal [facility] RPR WITH REFLEX QUANTon 11-23 RPR Non-Reactive Normal Nonreactive [facility] Comment on above: Performed By: #### L [id number] ####Physical Therapist Technician: DUGLAS CASTILLO ([id number])[facility])[address] [place] [address] URINE CULTUREon 12-19-2024 Bacteria identified Cx Nom (U) URINE CULTURE Reference Normal urogenital eric present [ S = SUSCEPTIBLE R = RESISTANT I = INTERMEDIATE S-DD = Susceptible-dose dependent NS = Non-susceptible NO = No Interpretation ] [facility] Comment on above: Performed By: #### L [id number], [id number] ####Physical Therapist Technician: DUGLAS CASTILLO ([id number])[address] VAGINITIS PANEL MVP PCRon VAGINITIS PANEL MVP PCR BACTERIAL VAGINOSIS MVP PCR (A) Reference Detected Not Detected RENE SPP MVP PCR Reference Not Detected Not Detected RENE GLABRATA/KRUSEI MVP PCR Reference Not Detected Not Detected TRICHOMONAS VAGINALIS MVP PCR Reference Not Detected Not Detected ORDER COMMENTS: Methodology: real-time PCR A negative result does not preclude a possible infection. This assay can detect the Rene species C. albicans, C. tropicalis, C. parapsilosis, and C. dubliniensis but does not differentiate among them. The assay also detects C. glabrata and C. krusei, but does not differentiate between them. Results should be interpreted in conjunction with other clinical data. This test has not been validated for use with specimens collected by patients at home. This test is intended for medical purposes only and is not valid for the evaluation of suspected sexual abuse or for other forensic purposes. Normal [facility] Comment on above: Performed By: #### L [id number] ####Physical Therapist Technician: DUGLAS CASTILLO ([id number])[address] [id number] 12-18-2024 [id number] Behavioral Health Psycho-Social Assessment (Social Work) Date: 12/18/2024 Patient Name: Travon Stallworth : 2005 Identifying Information: Patient is a 19-year-old female currently admitted to be 7 for reported SI. Patient is not reported to have any previous psychiatric admissions at [facility]. Patient has front path for insurance. Patient is currently signed voluntarily into the unit at this time. Presenting Problem: Per medical chart review ED note on 12/17/2024: Depressed x3 weeks non complaint with meds. Pt reports suicidal thoughts with plan to use medication Psychiatric History: Patient is reported to have a history diagnosis of Borderline personality disorder, unspecified eating disorder, unspecified anxiety and depression. Patient reports that she is connected to a therapist named Sophy Blanchard through [employer]. Patient also reports that she is connected to a psychiatrist through [employer]. Patient reports 1 previous SI attempt in 2021 via attempted overdose on hydralazine. Patient reports a history of SIB via cutting; reports her last attempt was 2 months ago her thighs. Substance Abuse/Use: Patient denies any history of drug or substance use at this time; other than THC. Patient reports a history of recently increased alcohol consumption; patient reports she drinks 2 shots of buzz Ball nightly. Patient denies any history of rehab, sober support, sponsorship, falls, blackouts, seizures, withdrawals. Patient's labs and UDS's were negative and unremarkable upon admission. Medical/Self-care Issues: Per medical chart review patient has a history of thyroid gland disease. Patient reports experiencing poor nutrition, sleep, and hygiene secondary to ongoing mental health. Legal/Trauma/ History: Patient denies any past or current legal issues at this time. Patient denies any history of experience trauma as an adolescent and denies any history experienced trauma as an adult. Patient denies any history of enlistment or status at this time. Family Constellation/Childhood History: Patient reports she was born and raised in [facility] by her biological parents and 2 siblings. Patient reports she currently resides with her cousin and denies being in a relationship and denies having children. Education/Work: Patient reports having a high school diploma and some college; currently undergrad at [employer] Patient reports she currently works at [employer]. Cultural/Spirituality/Le isure: Patient denies any cultural background at this time. Patient denies any spirituality/caodaism affiliation at this time. Patient reports she enjoys listening to music and making bracelets as a leisure activity. Support Systems/Collateral Information: Patient identifies her mother Merry [phone] as her biggest support. Patient also identifies her cousin. Patient denies access to firearms at this time. C-SSRS Actual Attempt (Past 3 Months): No Actual Attempt (Lifetime): Yes (Patient reports 1 prior SI attempt in 2021 via attempting to overdose on hydralazine) Interrupted Attempts (Past 3 Months): No Interrupted Attempts (Lifetime): No (Patient denies at this time.) Aborted or Self-Interrupted Attempt (Past 3 Months): No Aborted or Self-Interrupted Attempt (Lifetime): No (Patient denies at this time.) Preparatory Acts or Behavior (Past 3 Months): No Preparatory Acts or Behavior (Lifetime): No (Patient denies at this time.) Has subject engaged in non-suicidal self-injurious behavior? (Past 3 Months): No Has subject engaged in non-suicidal self-injurious behavior? (Lifetime): Yes (Patient reports a history of cutting; reports last time was 2 months ago her thighs.) Suicidal Ideation: Suicidal thoughts Treatment History: Previous psychiatric diagnoses and treatments (Patient reports she is currently connected to a therapist named Sophy Blanchard in [place] and a psychiatrist through [facility].) Other Risk Factors: (None identified at this time.) Clinical Status (Recent): Substance abuse or dependence, Agitation or severe anxiety (Borderline personality disorder, unspecified eating disorder, unspecified anxiety and depression) Protective Factors (Recent): Identifies reasons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 attempt. Diagnoses as of 12/17/24 2356 Suicidal ideation ED medications managed: Medications - No data to display Chronic conditions and social determinants of health affecting care: bipolar I made diagnostic, treatment, and disposition decisions in conjunction with the resident. I also supervised bruno portions of any procedures performed by the resident. For all further details of the patient's emergency department visit, please see his/her documentation. MD Shayna Brown MD 12/17/241921 Shayna Stoddard MD 12/17/241922 [facility] ED Provider Note EMERGENCY DEPARTMENT ENCOUNTER Pt Name: Travon Stallworth Birthdate 2005 Date of evaluation: 12/17/2024 ED Provider: Barrington Blunt DO Subjective: CHIEF COMPLAINT Chief Complaint Patient presents with Suicidal Depressed x3 weeks non complaint with meds. Pt reports suicidal thoughts with plan to use medication HISTORY OF PRESENT ILLNESS (Location/Symptom, Timing/Onset, Context/Setting, Quality, Duration, Modifying Factors, Severity) Note limiting factors. I wore appropriate PPE for the entirety of this encounter. HPI Travon Stallworth is a 19 y.o. female who presents to the emergency department with chief complaint of suicidal ideation. Patient states that she has been planning for 3 weeks to kill herself by overdose of ariprazole fluoxetine and hydroxyzine. She has started hoarding these medications. She states she has felt extremely depressed and anxious recently due to stressors at home and has been skipping school and her job. Denies homicidal ideation or hallucinations Denies fevers chills. Denies chest pain chest tightness Denies shortness of breath coughing wheezing Denies abdominal pain nausea vomiting Nursing Notes were reviewed. Limitations to history: Outside historians: REVIEW OF SYSTEMS Review of Systems Pertinent positives and negatives as per HPI. PAST MEDICAL HISTORY Medical History[1] SURGICAL HISTORY Surgical History[2] CURRENT MEDICATIONS Current Discharge Medication List CONTINUE these medications which have NOT CHANGED Details levothyroxine (Synthroid, Levoxyl) 25 MCG tablet Take 25 mcg by mouth every morning (before breakfast). ALLERGIES Patient has no known allergies. FAMILY HISTORY Family History[3] SOCIAL HISTORY Social History[4] SCREENINGS Objective: PHYSICAL EXAM ED Triage Vitals Temp Heart Rate Resp BP 12/17/24 1808 12/17/24 1808 12/17/24 1808 12/17/24 1808 37.2 ?C (98.9 ?F) 96 16 (!) 143/101 SpO2 Temp Source Heart Rate Source Patient Position 12/17/24 1808 12/17/24 1808 12/17/24 1808 12/17/24 2148 99 % Temporal Monitor Sitting BP Location FiO2 (%) 12/17/24 2148 -- Left arm Physical Exam General : Adult female in no acute distress Integumentary: Skin warm, dry Abdomen: Abdomen soft, nontender, no rebound tenderness or guarding Cardiovascular: Heart rate regular, regular rhythm, no murmurs, gallops, or friction rub Respiratory: Lungs CTA bilaterally, no wheezes, rales rhonchi DIAGNOSTIC RESULTS RADIOLOGY (Per Emergency Physician): Interpretation per the Radiologist below, if available at the time of this note: No orders to display LABS: Labs Reviewed CBC WITH AUTO DIFFERENTIAL - Abnormal Result Value Auto WBC 7.9 RBC 4.88 Hemoglobin 14.2 Hematocrit 42.7 MCV 87.5 MCH 29.1 MCHC 33.3 RDW 11.9 Platelets 338 MPV 9.6 nRBC 0.0 Neutrophils Relative 58.7 Lymphocytes Relative 27.6 Monocytes Relative 5.8 Eosinophils Relative 6.3 (*) Basophils Relative 1.3 Immature Grans % 0.3 Neutrophils Absolute 4.7 Lymphocytes Absolute 2.2 Monocytes Absolute 0.5 Eosinophils Absolute 0.5 Basophils Absolute 0.1 Immature Grans Absolute 0.0 SARS-COV-2 ANTIGEN - Normal SARS-CoV-2 Antigen Negative COMPREHENSIVE METABOLIC PANEL - Normal SODIUM 139 POTASSIUM 4.5 CHLORIDE 104 CARBON DIOXIDE 27 ANION GAP 8 UREA NITROGEN 15 CREATININE 1.00 GLUCOSE 95 CALCIUM 9.6 AST (SGOT) 20 ALT 10 ALKALINE PHOSPHATASE 87 ALBUMIN 4.0 BILIRUBIN, TOTAL 0.3 TOTAL PROTEIN 7.5 eGFR 82.4 ETHANOL - Normal ETHANOL IN SER/PLAS <10 Narrative: LEAD INGOT MOLDER depression is seen >100 mg/dL. NOTE: This result is for medical treatment only. Analysis performed using non-forensic procedures. CK - Normal CK 72 DRUGS OF ABUSE AMPHETAMINE SCREEN Negative BARBITURATES SCREEN Negative BENZODIAZEPINE SCREEN Negative COCAINE METAB. SCREEN Negative METHADONE SCREEN Negative OPIATES SCREEN Negative OXYCODONE SCREEN Negative PHENCYCLIDINE SCREEN Negative FENTANYL SCREEN, UR QUAL Negative Narrative: The expected value for all of the drugs listed above is Negative. The following drugs or drug groups have been screened for by Immunoassay at the following thresholds: Amphetamine class (1000 ng/mL) Barbiturates (200 ng/mL) Benzodiazepines (200 ng/mL) Cocaine (300 ng/mL) Methadone (300 ng/mL) Opiates (300 ng/mL) Oxycodone (100 ng/mL) PCP (25 ng/mL) Fentanyl (1.0 ng/ml) NOTE: These results are for medical treatment only. Analysis performed using non-forensic procedures. POSITIVE results are NOT confirmed by a more specific alternative method unless requested. If confirmation is needed, request confirmation under separate order. HCG QUALITATIVE URINE HCG,URINE QUAL Negative Narrative: is the most common reason for HCG in urine, although choriocarcinoma, hydatidiform mole, and certain nontrophoblastic malignancies also result in detectable u (more content not included)... Normal [facility] ETHANOLon 12-17-2024 ETHANOL IN SER/PLAS- GARRIDO <10 Normal <10 [facility] Comment on above: Result Comment: KRYSTEN Monte COMMENTS: LEAD INGOT MOLDER depression is seen >100 mg/dL. NOTE: This result is for medical treatment only. Analysis performed using non-forensic procedures. Performed By: #### L [id number], LAB17, LAB46 ####Physical Therapist Technician: DUGLAS CASTILLO ([id number])[address] HCG QUALITATIVE URINEon 11-23 Beta HCG ( test) Ql (U) Negative Normal Negative [facility] Comment on above: Result Comment: Pedro lehman note: Very dilute urine specimens, as indicated by a low specific gravity, may not contain marketing development representative levels of hCG. If is still suspected, a first morning urine specimen should be collected 48 hours later and tested. ORDER COMMENTS: is the most common reason for HCG in urine, although choriocarcinoma, hydatidiform mole, and certain nontrophoblastic malignancies also result in detectable urinary HCG levels. Sensitivity = 20mIU/mL. Performed By: #### L [id number] ####Physical Therapist Technician: DUGLAS CASTILLO ([id number])[address] SARS-COV-2 ANTIGENon 025 SARS-COV-2 ANTIGEN SARS-COV-2 ANTIGEN -BINAX Reference Negative Negative A negative result does not rule out the possibility of SARS-CoV-2 infection. NAAT-based methods should be considered for symptomatic patients presenting greater than seven days after onset of symptoms. Method: Lateral flow immunoassay. Fact sheets for healthcare providers and patients can be found at the following sites: https://www.fda.gov/medi a/187074/download https://www.fda.gov/medi a/649843/download Normal [facility] Comment on above: Performed By: #### L [id number] #### Physical Therapist Technician: DUGLAS CASTILLO ([id number]) [facility] ([facility]) [address] [place] [address] CULTURE, URINE, ROUTINEon CULTURE, URINE, ROUTINE SEE NOTE Normal [facility] Comment on above: Result Comment: CULTURE, URINE, ROUTINE Micro Number: [id number] Test Status: Final Specimen Source: Urine Specimen Quality: Adequate Result: No Growth Performed By: #### 3 95 #### [facility] [address], [address] [place] [address] Physical Therapist Technician: Bo Chand MD HCG ( test) Ql (U)o n 12-04-2024 Preg Test, Ur Negative Negative [facility] Work Phone: No Panel Informationon 12-04 Interpretation and review of laboratory results Normal [facility] Work Phone: [phone] [facility] Work Phone: [phone] POCT BV Blue Rapid - Bacteri al Vaginitis manually resultedon 12-04-2024 POC Bacterial Vaginitis (Rapid) Negative Negative [facility] Work Phone: [phone] POCT UA Automated manually r esultedon 12-04-2024 Appearance (U) Clear Clear [facility] Work Phone: [phone] Glucose Test strip (U) [Mass/Vol] Negative NEGATIVE mg/dl [facility] Work Phone: [phone] Hemoglobin Ql (U) Negative NEGATIVE [facility] Work Phone: [phone] Interpretation and review of laboratory results Abnormal [facility] Work Phone: [phone] Leukocyte esterase Test strip Ql (U) MODERATE (2+) Abnormal NEGATIVE [facility] Work Phone: [phone] Nitrite Ql (U) Negative NEGATIVE [facility] Work Phone: [phone] pH (U) 6.5 [pH] No Reference Range Established [facility] Work Phone: [phone] POC Bilirubin, Urine Negative NEGATIVE [facility] Work Phone: [phone] POC Color, Urine Yellow Straw, Yellow, Light-Yellow [facility] Work Phone: [phone] POC Ketones, Urine Negative NEGATIVE mg/dl [facility] Work Phone: [phone] POC Protein, Urine Negative NEGATIVE mg/dl [facility] Work Phone: [phone] POC Specific Bentley, Urine 1.015 1.005 - 1.035 [facility] Work Phone: [phone] POC Urobilinogen, Urine 0.2 0.2, 1.0 EU/DL [facility] Work Phone: [phone] POCT Covid-19 Rapid Antigeno n 10-25-2024 SARS-CoV-2 (COVID-19) Ag IA.rapid Ql (Resp) Presumptive negative test for SARS-CoV-2 (no antigen detected) Presumptive negative test for SARS-CoV-2 (no antigen detected) [facility] Work Phone: [phone] SARS-CoV-2 (COVID-19) Ag IA. rapid Ql (Resp)on 10-25-2024 [facility] Work Phone: CHLAMYDIA/GC BY PCR CANDE [...] are dependent on adequate specimen collection. Normal [facility] Comment on above: Performed By: #### C GS #### [facility] ([facility]) [address] [place] [address] VIR POCT SPOTFIRE R/ST Panel Min i w/Strep A ([facility]) manually resultedon 10-24-2024 Interpretation and review of laboratory results Normal [facility] Work Phone: [phone] POC Human Rhinovirus PCR Negative Negative [facility] Work Phone: [phone] POC Influenza A Virus PCR Negative Negative [facility] Work Phone: POC Influenza B Virus PCR Negative Negative [facility] Work Phone: POC Respiratory Syncytial Virus PCR Negative Negative [facility] Work Phone: S. pyogenes DNA FERMÍN+probe Ql (Throat) Negative Negative [facility] Work Phone: [facility] Work Phone: VAGINITIS PANEL PCRon 2024 [...] - suggest repeat testing Abnormal Not Detected [facility] Comment on above: Performed By: #### V PPCR #### [facility] ([facility]) [address] [place] [address] VIR BV SMEAR ROXANNA SCOREon BV SMEAR ROXANNA SCORE SEE NOTE Normal [facility] Comment on above: Result Comment: BV SMEAR ROXANNA SCORE Micro Number: [id number] Test Status: Final Specimen Source: Not given Specimen Quality: Adequate Gram Stain: Normal vaginal eric observed Comment: No yeast seen Performed By: #### 3 95, [id number] #### [facility] [address] [facility], [address] [place] [address] Physical Therapist Technician: Bo Chand MD CULTURE, URINE, ROUTINEon Bacteria identified Cx Nom (U) SEE NOTE Normal [facility] Comment on above: Result Comment: CULTURE, URINE, ROUTINE Micro Number: [id number] Test Status: Final Specimen Source: Not given Specimen Quality: Adequate Result: Mixed genital eric isolated. These superficial bacteria are not indicative of a urinary tract infection. No further organism identification is warranted on this specimen. If clinically indicated, recollect clean-catch, mid-stream urine and transfer immediately to Urine Culture Transport Tube. Performed By: #### 3 41, [id number] #### [facility] [address] [facility], [address] [place] [address] Physical Therapist Technician: Bo Chand MD HCG ( test) Ql (U)o n 09-21-2024 Preg Test, Ur Negative Negative [facility] Work Phone: [phone] No Panel Informationon 09-21 Interpretation and review of laboratory results Normal [facility] Work Phone: [phone] [facility] Work Phone: [phone] POCT BV Blue Rapid - Bacteri al Vaginitis manually resultedon 09-21-2024 Interpretation and review of laboratory results Normal [facility] Work Phone: [phone] POC Bacterial Vaginitis (Rapid) Negative Negative [facility] Work Phone: [phone] [facility] Work Phone: [phone] POCT UA Automated manually r esultedon 09-21-2024 Appearance (U) Clear Clear [facility] Work Phone: Glucose Test strip (U) [Mass/Vol] Negative NEGATIVE mg/dl [facility] Work Phone: Hemoglobin Ql (U) Negative NEGATIVE [facility] Work Phone: [phone] Leukocyte esterase Test strip Ql (U) Negative NEGATIVE [facility] Work Phone: [phone] Nitrite Ql (U) Negative NEGATIVE [facility] Work Phone: [phone] pH (U) 6.0 [pH] No Reference Range Established [facility] Work Phone: [phone] POC Bilirubin, Urine Negative NEGATIVE [facility] Work Phone: POC Color, Urine Straw Straw, Yellow, Light-Yellow [facility] Work Phone: [phone] POC Ketones, Urine Negative NEGATIVE mg/dl [facility] Work Phone: POC Protein, Urine Negative NEGATIVE mg/dl [facility] Work Phone: POC Specific Bentley, Urine 1.020 1.005 - 1.035 [facility] Work Phone: POC Urobilinogen, Urine 0.2 0.2, 1.0 EU/DL [facility] Work Phone: CNOVon 08-29-2024 CNOV Office Visit (FMIUNI ) -------- TRAVON DAO ([id number]) 1 F Date Time Provider Department 08/29/24 11:40 AM ANTIONETTE BENITEZ IUNI During your visit today, we recorded the [...] the menstrual period. - Recommended performing an taej-tuu-yzymfrj test if the period is delayed. - Discussed the possibility of false-negative results if testing is done too early. - Informed about legality and presence of reproductive services in [place] if needed. Dr. Antionette Benitez, DO Recording using [employer] software for draft documentation of the visit was discussed with the patient/authorized marketing development representative; all questions welcomed and answered. Patient/authorized marketing development representative agreed to proceed Allergies As of [...] mg b (more content not included)... Normal [facility] - Microbiology an d Antimicrobial susceptibilityOrdered By: Merry Alvarez on 08-22-2024 N. gonorrhoeae DNA FERMÍN+probe Ql (Unsp spec) Negative Negative [facility] Comment on above: Performed at: =[address] [id number] Director: Solange Dalal MD, Phone: [phone] No Panel InformationOrdered By: Merry Alvarez on 08-22-2024 Rene albicans (FERMÍN) Negative Negative [facility] Comment on above: This test was develo ped and its performance characteristicsdetermined by [facility]. It has not been cleared orapproved by the Food and Drug Administration. Rene glabrata (FERMÍN) Negative Negative [facility] Comment on above: This test was develo ped and its performance characteristicsdetermined by [facility]. It has not been cleared orapproved by the Food and Drug Administration. Chlamydia trachomatis (FERMÍN) (LAB) Negative Negative [facility] Trichomonas vaginalis (FERMÍN) Negative Negative [facility] Quick Strep (POC) [facility] Vaginal fluid Atop[employer]ium vagi mitzi DNA detection by probe and target amplification methoOrdered By: Merry Alvarez on 08-22-2024 A. vaginae DNA FERMÍN+probe Ql (Vag fld) Low - 0 Score . [facility] Comment on above: This test was develo ped and its performance characteristicsdetermined by [facility]. It has not been cleared orapproved by the Food and Drug Administration. Vaginal fluid Megasphaera sp ecies type 1 DNA detection by probe and target amplificatOrdered By: Merry Alvarez on 08-22-2024 Megasphaera sp type 1 DNA FERMÍN+probe Ql (Vag fld) Low - 0 Score . [facility] Comment on above: This test was develo ped and its performance characteristicsdetermined by [facility]. It has not been cleared orapproved by [...] (Vag fld) Low - 0 Score . [facility] Comment on above: This test was develo ped and its performance characteristicsdetermined by [facility]. It has not been cleared orapproved by the Food and Drug Administration. Vaginitis Plus (VG+)on 08-22 Atopobium Vaginae Low - 0 Normal . [facility] Comment on above: Result Comment: This test was developed and its performance characteristics determined by [facility]. It has not been cleared or approved by the Food and Drug Administration. Performed By: #### V AGINITIS+ #### [facility] , BVAB2 Low - 0 Normal . [facility] Comment on above: Result Comment: This test was developed and its performance characteristics determined by [facility]. It has not been cleared or approved by the Food and Drug Administration. Performed By: #### V AGINITIS+ #### [facility] , Rene Albicans, FERMÍN Negative Normal Negative [facility] Comment on above: Result Comment: This test was developed and its performance characteristics determined by [facility]. It has not been cleared or approved by the Food and Drug Administration. Performed By: #### V AGINITIS+ #### [facility] , Rene Glabrata, FERMÍN Negative Normal Negative [facility] Comment on above: Result Comment: This test was developed and its performance characteristics determined by [facility]. It has not been cleared or approved by the Food and Drug Administration. PERFORMED BY: [address] [address] PATHOLOGIST BLEACH SUPERVISOR MASSIEL MCKEON M.D. Performed By: #### V AGINITIS+ #### [facility] , Chlamydia Trachomotis, FERMÍN Negative Normal Negative [facility] Comment on above: Performed By: #### V AGINITIS+ #### [facility] , Megasphaera Low - 0 Normal . [facility] Comment on above: Result Comment: [...] Neisseria Gonorrhoeae, FERMÍN Negative Normal Negative [facility] Comment on above: Result Comment: Perf ormed at: =G - [facility] [address] [place] [id number] Speech Therapy Teacher: Solange Dalal MD, Phone: [phone] Performed By: #### V AGINITIS+ #### [facility] , Tric Vag FERMÍN Negative Normal Negative [facility] Comment on above: Performed By: #### V AGINITIS+ #### [facility] , MR head/brain wo/w conon MR head/brain wo/w con [facility] Main [place] [address] [place] [address] MRI Report Signed Patient: Travon Stallworth MR#: [id number] : 2005 Acct:[id number] Age/Sex: 18 / F ADM Date: 07/23/24 Loc: MR Room: Type: [facility] Attending Dr: Myesha Caceres DO Copies to: [...] Maximino Garner M.D.07/23/2024 10:42 PM Dictation Location: [place] [address] Transcribed By: [facility] 07/23/242241 Dictated By: Maximino Garner DO 07/23/242233 Signed By: 07/23/242241 Normal [facility] Magnetic resonance imaging r eportOrdered By: Maximino Garner on 07-23-2024 Study report [facility] Main [place] [address] [place] [address] MRI Report Signed Patient: Travon Stallworth MR#: [id number] : 2005 Acct:[id number] Age/Sex: 18 / F ADM Date: 5 Loc: MR Room: Type: [facility] Attending Dr: Myesha Caceres DO Copies to: [...] Maximino Garner M.D.07/23/2024 10:42 PM Dictation Location: [place] [address] Transcribed By: [facility] 07/23/242241 Dictated By: Maximino Garner DO 07/23/242233 Signed By: 07/23/242241 [facility] BACTERIAL VAGINOSIS NAATon 0 07-08-2024 Lactobacillus crispatus+gasseri+shirlene enii + Gardnerella vaginalis + Atopobium vaginae rRNA FERMÍN+probe Ql (Vag fld) Detected Abnormal Not detected [facility] Comment on above: Order Comment: Speci men Type: SWABOrdering Facility: [facility] Address: [address] [place] [address] Performed By: #### C VTV, BVAMP ####[facility] LABCLIA [id number] [place] [address] [place] Bacteria Ur Culton Bacteria identified Cx Nom (U) CULTURE, URINE: No growth (<1,000 CFU/ml) Normal [facility] Comment on above: Performed By: #### 6 30-4 ####[facility] LABCLIA [id number] [place] [address] [place] C. trachomatis+N. gonorrhoea e DNA FERMÍN+probe Ql (Unsp spec)on 07-08-2024 C. trachomatis rRNA FERMÍN+probe Ql (Unsp spec) Not detected Normal Not detected [facility] Comment on above: Order Comment: Speci men Type: SWABOrdering Facility: [facility] Address: [address] [place] [address] Performed By: #### 3 6902-5 ####[facility] LABCLIA [id number] [place] [address] [place] N. gonorrhoeae rRNA FERMÍN+probe Ql (Unsp spec) Not detected Normal Not detected [facility] Comment on above: Order Comment: Speci men Type: SWABOrdering Facility: [facility] Address: [address] [place] [address] Performed By: #### 3 6902-5 ####[facility] LABCLIA [id number] [place] [address] [place] RENE/TRICHOMONAS NAATon 0 07-08-2024 C. glabrata RNA FERMÍN+probe Ql (Vag fld) Not detected Normal Not detected [facility] Comment on above: Order Comment: Speci men Type: SWABOrdering Facility: [facility] Address: [address] [place] [address] Performed By: #### C VTV, BVAMP ####[facility] LABCLIA [id number] [place] [address] [place] Rene sp DNA FERMÍN+probe Ql (Vag fld) Not detected Normal Not detected [facility] Comment on above: Order Comment: Speci men Type: SWABOrdering Facility: [facility] Address: [address] [place] [address] Result Comment: The Rene species group target includes C. albicans, C. tropicalis, C. parapsilosis, and C. dubliniensis. Performed By: #### C VTV, BVAMP ####[facility] LABCLIA [id number] [address] [place] T. vaginalis DNA FERMÍN+probe Ql (Unsp spec) Not detected Normal Not detected [facility] Comment on above: Order Comment: Speci men Type: SWABOrdering Facility: [facility] Address: [address] [place] [address] Performed By: #### C VTV, BVAMP ####[facility] LABCLIA [id number] [address] [place] CNOVon 07-08-2024 CNOV Office Visit (FMIUNI ) -------- TRAVON STALLWORTH ([id number]) 1 F Date Time Provider Department 07/08/24 3:40 PM ANTIONETTE BENITEZ FMIUNI During your visit today, we recorded the following information about you: Temperature Pulse Blood pressure Weight 98.7 degrees 68/minute 137/92 65.9 kg Last Period 06/17/24 Antionette Benitez DO 07/08/2024 4:26 PM Signed ASSESSMENT/PLAN: 1. Right [...] Diagnosis:Vaginal discharge [N89.8] Order(s):UA DIP, URINE (POC) [[id number]] Order #: [id number]. #:[id number] URINALYSIS, REFLEX MICROSCOPIC [HOC1147] Order #: [id number]. #:[id number] BACTERIAL CULTURE, URINE [SQURCUL] Order #: [id number]. #:[id number] RENE/TRICHOMONAS NAAT [SQCVTV] Order #: [id number]. #:[id number] BACTERIAL VAGINOSIS NAAT [SQBVAMP] Order #: [id number]. #:[id number] GONORRHEA/CHLAMYDIA NAAT [SQGCCT] Order #: [id number]. #:[id number] cyclobenzaprine (FLEXERIL) 10 mg tabletTake 1 tablet [...] at bedtim (more content not included)... Normal [facility] UA DIP, URINE (POC)on 2024 BILIRUBIN UA (POCT) Negative Negative [facility] CLARITY UA (POCT) Clear [facility] COLOR UA (POCT) Yellow [facility] GLUCOSE UA (POCT) Negative Negative mg/dL [facility] Hemoglobin Ql (U) Negative Negative [facility] Interpretation and review of laboratory results Abnormal [facility] KETONE UA (POCT) Negative Negative mg/dL [facility] LEUKOCYTES UA (POCT) Negative Negative [facility] NITRITE UA (POCT) Negative Negative [facility] PH UA (POCT) 6.5 4.5 - 8.0 [facility] Protein Ql (U) Trace Abnormal Negative mg/dL [facility] SPECIFIC GRAVITY UA (POCT) 1.025 1.005 - 1.030 [facility] UROBILINOGEN UA (POCT) 0.2 Sue l E.U./dL [facility] Location:[facility], [address] [place] [address], [address] [place] [address] POINT OF CARE [facility] URINALYSIS, REFLEX MICROSCOP ICon 07-08-2024 Bacteria LM.HPF (Urine sed) [#/Area] Negative Normal Negative [facility] Comment on above: Order Comment: Speci men Type: URINE SPECIMENOrdering Facility: [facility] Address: [address] [place] [address] Performed By: #### L [id number] ####[facility] LABCLIA [id number] [address] [place] [address] [place] Bilirubin Ql (U) Negative Normal Negative [facility] Comment on above: Order Comment: Speci men Type: URINE SPECIMENOrdering Facility: [facility] Address: [address] [place] [address] Performed By: #### L [id number] ####[facility] LABCLIA [id number] [address] [place] [address] [place] Clarity (Unsp spec) Clear Normal Clear [facility] Comment on above: Order Comment: Speci men Type: URINE SPECIMENOrdering Facility: [facility] Address: [address] [place] [address] Performed By: #### L [id number] ####[facility] LABCLIA [id number] [address] STATES OF [facility] Color (U) Yellow Normal Yellow [facility] Comment on above: Order Comment: Speci men Type: URINE SPECIMENOrdering Facility: [facility] Address: [address] [place] [address] Performed By: #### L [id number] ####[facility] LABCLIA [id number] [address] [address] [place] Epithelial cells LM.HPF (Urine sed) [#/Area] None Seen Normal [facility] Comment on above: Order Comment: Speci men Type: URINE SPECIMENOrdering Facility: [facility] Address: [address] [place] [address] Performed By: #### L [id number] ####[facility] LABCLIA [id number] [place] [address] [place] Glucose Test strip (U) [Mass/Vol] Negative Normal Negative [facility] Comment on above: Order Comment: Speci men Type: URINE SPECIMENOrdering Facility: [facility] Address: [address] [place] [address] Performed By: #### L [id number] ####[facility] LABCLIA [id number] [address], [facility] [place] Hemoglobin Ql (U) Trace Abnormal Negative [facility] Comment on above: Order Comment: Speci men Type: URINE SPECIMENOrdering Facility: [facility] Address: [address] [place] [address] Performed By: #### L [id number] ####[facility] LABCLIA [id number] [place] [address] [place] Hyaline casts (Urine sed) [#/Area] 0 /[LPF] Normal 0 /LPF [facility] Comment on above: Order Comment: Speci men Type: URINE SPECIMENOrdering Facility: [facility] Address: [address] [place] [address] Performed By: #### L [id number] ####[facility] LABCLIA [id number] [place] [address] [place] Ketones Ql (U) Negative Normal Negative [facility] Comment on above: Order Comment: Speci men Type: URINE SPECIMENOrdering Facility: [facility] Address: [address] [place] [address] Performed By: #### L [id number] ####[facility] LABCLIA [id number] [place] [address] [place] Leukocyte esterase Test strip Ql (U) Negative Normal Negative [facility] Comment on above: Order Comment: Speci men Type: URINE SPECIMENOrdering Facility: [facility] Address: [address] [place] [address] Performed By: #### L [id number] ####[facility] LABCLIA [id number] [place] [address] [place] Nitrite Ql (U) Negative Normal Negative [facility] Comment on above: Order Comment: Speci men Type: URINE SPECIMENOrdering Facility: [facility] Address: [address] [place] [address] Performed By: #### L [id number] ####[facility] LABIA [id number] [place] [address] [place] pH (U) 6.5 [pH] Normal <8.5 [facility] Comment on above: Order Comment: Speci men Type: URINE SPECIMENOrdering Facility: [facility] Address: [address] [place] [address] Performed By: #### L [id number] ####[facility] LABIA [id number] [place] [address] [place] Protein (U) [Mass/Vol] Trace Abnormal Negative Cl [facility] Comment on above: Order Comment: Speci men Type: URINE SPECIMENOrdering Facility: [facility] Address: [address] [place] [address] Performed By: #### L [id number] ####[facility] LABIA [id number] [place] [address] [place] RBC LM.HPF (Urine sed) [#/Area] 0-2 /HPF Normal 0-2 /HPF [facility] Comment on above: Order Comment: Speci men Type: URINE SPECIMENOrdering Facility: [facility] Address: [address] [place] [address] Performed By: #### L [id number] ####[facility] LABIA [id number] [place] [address] [place] Specific gravity (U) [Rel density] 1.024 Normal 1.005-1.030 [facility] Comment on above: Order Comment: Speci men Type: URINE SPECIMENOrdering Facility: [facility] Address: [address] [place] [address] Performed By: #### L [id number] ####[facility] LABIA [id number] [address] [place] Urobilinogen Ql (U) 0.2 EU/dL Normal 0.2-1.0 EU/dL [facility] Comment on above: Order Comment: Speci men Type: URINE SPECIMENOrdering Facility: [facility] Address: [address] [place] [address] Performed By: #### L [id number] ####[facility] [id number] [place] [address] [place] WBC LM.HPF (Urine sed) [#/Area] 0-5 /HPF Normal 0-5 /HPF [facility] Comment on above: Order Comment: Speci men Type: URINE SPECIMENOrdering Facility: [facility] Address: [address] [place] [address] Performed By: #### L [id number] ####[facility] [id number] [address] [place] TSH W/REFLEX FT4on 5 TSH Qn 2.340 m[IU]/L Normal 0.510-4.300 [facility] Comment on above: Order Comment: Speci men Type: BLOOD SPECIMENOrdering Facility: [facility] Address: [address] [place] [address] Result Comment: If t he patient is , TSH reference range varies by gestational period: First Trimester (weeks 9-12): 0.180-2.990 mIU/L Second Trimester: 0.110-3.980 mIU/L Third Trimester: 0.480-4.710 mIU/L Malcolm Molina et al. A Practical Approach for the Verifications and Determination of Site- and Trimester-Specific Reference Intervals for Thyroid Function tests in . Thyroid, 2019:29:3:412-420. Rubio Jade, et al. 2017 Guidelines of the [place] Thyroid Association for the Diagnosis and Management of Thyroid Disease during and the . Thyroid, 2017:27:3:315-389. Performed By: #### T SHR ####[facility] [id number] [address] [place] [address] [facility] CNOVon 05-07-2024 CNOV Office Visit (FMIUNI ) -------- TRAVON STALLWORTH ([id number]) 1 F Date Time Provider Department 05/07/24 [...] times p (more content not included)... Normal [facility] HOLTER MONITOR 48 HOURon IMPRESSIONS AND FINDINGS: [...] Rebeca Fish. Confirmed by MD VICTORINA, ZENAB ([id number]) on 04/23/2024 3:37:54 PM Hookup Date: 20240410 Hookup Time: [id number] Recording Duration: 375805 S Minimum Heart Rate: 45 BPM Minimum Heart Rate Date/Time: 20240411 Maximum Heart Rate: 164 BPM Maximum Heart Rate Date/Time: 20240412 Average Heart Rate: 79 BPM Longest RR: 1.828 S Longest RR DATE/TIME: 20240411308 QRS complexes: 622149 Ventricular Ectopics: 5 Ventricular Isolated Beats: 5 Ventricular Bigeminal Cycles: 0 Ventricular Couplets: 0 Ventricular Runs: 0 Ventricular Beats in Runs: 0 Supraventricular Ectopics: 7 Supraventricular Isolated Beats: 7 Supraventricular Couplets: 0 Supraventricular Runs: 0 Supraventricular Beats in Runs: 0 Overreading Physician: CHARU PRAJAPATI [facility] CHEMISTRYOrdered By: SYSTEM SYSTEM on 04-21-2024 [...] High Sensitivity Troponin I Instructions For Use, [facility], November 2017) ED Clinical Summaryon 2023 ED Clinical Summary ED Clinical Summary [place] [address] ED Clinical Summary Person Information Name: TRAVON STALLWORTH/[facility] Age: 18 Years : 2005 Sex: Female Language: Persian PCP: NONE, XXXX Marital Status: Single Visit [...] 04/21/2024 01:16:12 04/21/2024 01:16:12 04/21/2024 01:16:12 ADDRESS: [facility] [place] [id number] [facility] NOTES: MEDICAL INFORMATION: Prescriptions Given: Medications to Continue with No Changes Other Medications fluoxetine (Prozac) By Mouth every day. hydrOXYzine PATIENT EDUCATION INFORMATION: Instructions: Nonspecific Chest Pain, Adult; Syncope, Adult Follow up: With: Address: When: [facility] [address] [place], [place] [address] Business (1) In 5 days 04/26/2024 DIAGNOSIS: Chest pain; Palpitations; Syncope Normal [facility] ED Note-Physicianon 04-21-20 ED Note-Physician ED Note-Physician Basic Information Time Seen: Hermelindo Howard DOCandice 04/21/2024 00:08 Chief Complaint Hypertension, shaking and [...] and Complexity of Problems Differential Diagnosis: [] [facility] Data External documents reviewed: N/A My EKG [...] Information Ernst Danielson In 5 days 04/26/2024 EST JULI-N (more content not included)... Normal [facility] Comment on above: Result Comment: Elec tronically Signed By: Hermelindo Howard DO\.br\Date and Time Signed: 04/21/24 01:04 EST ED Patient Summaryon 024 ED Patient Summary ED Patient Summary [place] [id number] Patient Discharge Instructions Person Information Name: TRAVON STALLWORTH Age: 18 Years Arrival Date: 04/20/2024 22:48:27 Discharge Diagnosis: Chest pain; Palpitations; Syncope Primary Care Physician: NONE, XXXX Provider Information Primary Provider: Hermelindo Howard DO Advanced Customer Sales Service Manager:None The exam and treatment you received in the Emergency Department were for an urgent problem and are not intended as complete care. It is important that you follow up with a doctor, nurse practitioner, or physician???s training and development assistant for ongoing care. If your symptoms become worse or you do not improve as expected and you are unable to reach your usual health care provider, you should return to the Emergency Department. We are available 24 hours a day. TRAVON STALLWORTH has been given the following list of patient education materials, prescriptions and follow-up instructions: Follow-up Instructions: With: Address: When: [facility], [address] [place], [place] [address] Business (1) In 5 days 04/26/2024 In the event that this physician does not participate in your insurance network, please consult with your insurance company to find a nearby participating provider. Patient Education Materials: Nonspecific Chest Pain, Adult; Syncope, Adult A MESSAGE TO ALL PATIENTS REGARDING OPIOIDS PRESCRIPTION OPIOIDS: WHAT YOU NEED TO KNOW Prescription opioids can be used to help relieve vcofskvy-yu-ukkeix pain and are often prescribed following a [...] your hea (more content not included)... Normal [facility] Troponin 1 Hr.on 04-21-2024 Troponin HS <2.30 Low 10.10-27.[address] [facility] Comment on above: Order Comment: 0011 Result Comment: The 95% CI (Confidence Interval) PPV (Positive Predictive Value) for myocardial infarction in females is 38 pg/mL, in males 51 pg/mL. The results should be used in conjunction with clinical conditions of myocardial infarction. (Access High Sensitivity Troponin I Instructions For Use, Lashawn [place], November 2017) Performed By: #### 1 [id number] #### [facility] Laboratory [address] [place] [address] BMPon 04-20-2024 Anion gap [Moles/Vol] 12 mmol/L Normal 6-16 [facility] Comment on above: Performed By: #### 2 [id number] #### [facility] [address] [place] [address] Calcium [Mass/Vol] 9.7 mg/dL Normal 8.9-11.[address] [facility] Comment on above: Performed By: #### 2 [id number] #### [facility] [address] [place] [address] Chloride [Moles/Vol] 104 mmol/L Normal 101-111 [facility] Comment on above: Performed By: #### 2 [id number] #### [facility] [address] [place] [address] CO2 [Moles/Vol] 25 mmol/L Normal 21-31 [facility] Comment on above: Performed By: #### 2 [id number] #### [facility] [address] [place] [address] Creatinine [Mass/Vol] 1.0 mg/dL Normal 0.5-1.3 [facility] Comment on above: Performed By: #### 2 [id number] #### [facility] [address] [place] [address] Glucose [Mass/Vol] 159 mg/dL Normal 55-[address] [facility] Comment on above: Performed By: #### 2 [id number] #### [facility] [address] [place] [address] Potassium [Moles/Vol] 3.8 mmol/L Normal 3.5-5.3 [facility] Comment on above: Performed By: #### 2 937334 #### [facility] [address] [place] [address] Sodium [Moles/Vol] 137 mmol/L Normal 135-[address] [facility] Comment on above: Performed By: #### 2 [id number] #### [facility] [address] [place] [address] Urea nitrogen [Mass/Vol] 17 mg/dL Normal 5-[address] [facility] Comment on above: Performed By: #### 2 177859 #### [facility] [address] [place] [address] Urea nitrogen/Creatinine [Mass ratio] 17 No Units Normal 10-[address] [facility] Comment on above: Performed By: #### 2 [id number] #### [facility] [address] [place] [address] CBC w/ Auto Diffon 4 Basophils/100 WBC (Bld) 0.6 % Normal 0.0-2.[address] [facility] Comment on above: Performed By: #### 2 901051 #### [facility] [address] [place] [address] Basophils/Leukocytes Auto (Bld) [Pure # fraction] 0.0 E9/L Normal 0.0-0.[address] [facility] Comment on above: Performed By: #### 2 [id number] #### [facility] [address] [place] [address] Eosinophils (Bld) [#/Vol] 0.3 E9/L Normal 0.0-0.[address] [facility] Comment on above: Performed By: #### 2 202537 #### [facility] [address] [place] [address] Eosinophils/100 WBC (Bld) 3.5 % Normal 0.0-8.[address] [facility] Comment on above: Performed By: #### 2 176136 #### [facility] [address] [place] [address] Erythrocyte distribution width (RBC) [Ratio] 12.9 % Normal 10.9-14.[address] [facility] Comment on above: Performed By: #### 2 637555 #### [facility] [address] [place] [address] Hematocrit (Bld) [Volume fraction] 42.8 % Normal 34.0-46.[address] [facility] Comment on above: Performed By: #### 2 444787 #### [facility] [address] [place] [address] Hemoglobin (Bld) [Mass/Vol] 14.9 g/dL Normal 12.0-16.[address] [facility] Comment on above: Performed By: #### 2 465551 #### [facility] [address] [place] [address] Lymphocytes (Bld) [#/Vol] 2.3 E9/L Normal 1.0-4.[address] [facility] Comment on above: Performed By: #### 2 317349 #### [facility] [address] [place] [address] Lymphocytes/100 WBC (Bld) 26.4 % Normal 14.0-50.[address] [facility] Comment on above: Performed By: #### 2 150384 #### [facility] [address] [place] [address] MCH (RBC) [Entitic mass] 30.1 pg Normal 27.0-34.[address] [facility] Comment on above: Performed By: #### 2 483179 #### [facility] Laboratory [address] [place] [address] MCHC (RBC) [Mass/Vol] 34.9 g/dL Normal 31.4-36.0 [facility] Comment on above: Performed By: #### 2 [id number] #### [facility] Laboratory [address] [place] [address] MCV (RBC) [Entitic vol] 86.3 fL Normal 80.0-100.[address] [facility] Comment on above: Performed By: #### 2 [id number] #### [facility] Laboratory [address] [place] [address] [place] [address] Monocytes (Bld) [#/Vol] 0.6 E9/L Normal 0.2-1.[address] [facility] Comment on above: Performed By: #### 2 777837 #### [facility] Laboratory [address] [place] [address] Neutrophils (Bld) [#/Vol] 5.5 E9/L Normal 2.0-7.[address] [facility] Comment on above: Performed By: #### 2 434269 #### [facility] Laboratory [address] [place] [address] Neutrophils/100 WBC (Bld) 62.7 % Normal 36.0-75.[address] [facility] Comment on above: Performed By: #### 2 992829 #### [facility] Laboratory [address] [place] [address] Platelet mean volume (Bld) [Entitic vol] 7.2 fL Normal 6.4-10.[address] [facility] Comment on above: Performed By: #### 2 517195 #### [facility] Laboratory [address] [place] [address] Platelets (Bld) [#/Vol] 309.0 E9/L Normal 150.0-500.[address] [facility] Comment on above: Performed By: #### 2 217388 #### [facility] Laboratory [address] [place] [address] RBC (Bld) [#/Vol] 5.0 E12/L Normal 4.3-5.[address] [facility] Comment on above: Performed By: #### 2 477509 #### [facility] Laboratory [address] [place] [address] WBC corrected for nucl RBC Auto (Bld) [#/Vol] 8.7 E9/L Normal 4.0-11.0 [facility] Comment on above: Performed By: #### 2 562596 #### [facility] Laboratory [address] [place] [address] CHEMISTRYOrdered By: SYSTEM SYSTEM on 04-20-2024 Anion [...] 31.6 s Normal 25.1 - 36.5 second(s) [facility] Auto Coag Comment on above: Interpretive Data: P hongmetedilberto 15 days - 4 weeks 1 - [...] the same coagulation reagent and instrumentation as [facility]. Currently there are no coagulation studies available worldwide for children to 14 days, and no normal ranges. Heparin therapeutic range (represented by Anti-Factor Xa activity of 0.2 - 0.4 U/mL) corresponds to PTT of 56.6 - 109.0 sec. Fibrin D-dimer FEU (PPP) [Mass/Vol] ng/mL FEU Low 215 - 500 ng/mL FEU [facility] Auto Coag Comment on above: Interpretive Data: [...] [Relative time] 1.04 {INR} Invalid Interpretation Code [facility] Auto Coag Comment on above: Interpretive Data: I NR results are specifically intended to assess patients stabilized on long-term Anticoagulation therapy suggested INR s Less Intensive Anticoagulation 2.0 3.0 Conventional Range 3.0 4.5 PT Coag (PPP) [Time] 11.7 s Normal 9.4 - 1 2.5 second(s) [facility] Auto Coag Comment on above: Interpretive Data: [...] the same coagulation reagent and instrumentation as [facility]. Currently there are no coagulation studies available worldwide for children to 14 days, and no normal ranges. D-Dimeron 04-20-2024 Fibrin D-dimer FEU (PPP) [Mass/Vol] <215 Low 215-[address] [facility] Comment on above: Result Comment: This [...] infections Liver cirrhosis Performed By: #### 2 [id number] #### [facility] Laboratory [address] [place] [address] HEMATOLOGYOrdered By: SYSTEM SYSTEM on 04-20-2024 Basophils/100 [...] Coag (PPP) [Time] 31.6 second(s) Normal 25.1-36.[address] [facility] Comment on above: Result Comment: Para meter 15 days - 4 weeks 1 - 5 months 6 - 11 months 1 - 5 years 6 - 10 years 11 - 17 years PTT Mean: 35.4 (27.6-45.6) Mean: 33.5 (24.8-40.7) Mean: 32.4 (25.1-40.7) Mean: 31.6 (24.0-39.2) Mean: 31.6 (26.9-38.7) Mean: 31.0 (24.6-38.4) Pediatric Reference ranges were obtained from a study by sonya Page. prepared from 1437 samples obtained at 7 different centers using the same coagulation reagent and instrumentation as [facility]. Currently there are no coagulation studies available worldwide for children to 14 days, and no normal ranges. Heparin therapeutic range (represented by Anti-Factor Xa activity of 0.2 - 0.4 U/mL) corresponds to PTT of 56.6 - 109.0 sec. Performed By: #### 1 [id number] #### [facility] Laboratory [address] [place] [address] INR Coag (PPP) [Relative time] 1.04 {INR} Invalid Interpretation Code [facility] Comment on above: Result Comment: INR results are specifically intended to assess patients stabilized on long-term Anticoagulation therapy suggested INR???s ???Less Intensive Anticoagulation??? 2.0 ??? 3.0 Conventional Range 3.0 ??? 4.5 Performed By: #### 1 [id number] #### [facility] Laboratory [address] [place] [address] PT Coag (PPP) [Time] 11.7 second(s) Normal 9.4-12.[address] [facility] Comment on above: Result Comment: 15 d ays - 4 weeks 1 - 5 months 6 -11 months 1- 5 years 6-10 years 11 -17 years Mean: 11.2 (9.5-12.6) Mean: 11.0 (9.7-12.8) Mean: 11.0 (9.8-13.0) Mean: 11.3 (9.9-13.4) Mean: 11.7 (10.0-14.6) Mean: 11.8 (10.0 - 14.1) Pediatric Reference ranges were obtained from a study by sonya Page. prepared from 1437 samples obtained at 7 different centers using the same coagulation reagent and instrumentation as [facility]. Currently there are no coagulation studies available worldwide for children to 14 days, and no normal ranges. Performed By: #### 1 [id number] #### [facility] Laboratory [address] [place] [address] Troponin 0 Hr.on 04-20-2024 Troponin HS <2.30 Low 10.10-27.[address] [facility] Comment on above: Result Comment: The 95% CI (Confidence Interval) PPV (Positive Predictive Value) for myocardial infarction in females is 38 pg/mL, in males 51 pg/mL. The results should be used in conjunction with clinical conditions of myocardial infarction. (Access High Sensitivity Troponin I Instructions For Use, Lashawn Mek[place]uk, November 2017) Performed By: #### 1 [id number] #### [facility] Laboratory [address] [place] [address] eGFRon 04-20-2024 eGFR 82 mL/min/1.73 m2 Normal >=[address] [facility] Comment on above: Performed By: #### 1 [id number] #### [facility] Laboratory [address] [place] [address] CNNURSEon 04-12-2024 [facility] Nurse Visit (STFLF) -------- TRAVON STALLWORTH ([id number]) 1 F Date Time Provider Department 04/12/24 3:30 PM [facility] During your visit today, we recorded the following information about you: Mariagnel Villarreal LPN 04/12/2024 1:22 PM Signed Patient [...] Encounter Status:Closed by MARIANGEL VILLARREAL on 04/12/24 Normal [facility] CNNURSEon 04-10-2024 [facility] Nurse Visit (STFLF) -------- TRAVON STALLWORTH ([id number]) 1 F Date Time Provider Department 04/10/24 1:00 PM [facility] ST[facility] During your visit today, we recorded the following information about you: Allergies As of Date: 04/10/2024 Noted Allergy Reaction CIPROFLOXACIN 04/05/2024 14 - Other: See Comments Comments: Heart palp, hard time breathing, shaking Date Reviewed: Never Reviewed Reason for Visit: Holter Monitor Application [261] Visit Diagnoses:Elevated blood pressure reading without diagnosis of hypertension [R03.0] Palpitations [R00.2] Order(s):HOLTER MONITOR 48 HOUR [6611107] Order #: [id number] Prescriptions as of 04/10/2024 - hydrOXYzine HCl [...] for Encounter Date Provider Department Center 04/10/2024 [id number] GEOFFREY GRANT CavazosSTFLF [facility] Encounter Status:Closed by ALLAN FRIEDMAN on 04/10/24 Normal [facility] HOLTER MONITOR 48 HOURon HOLTER MONITOR 48 [...] Rebeca Fish. Confirmed by MD VICTORINA, CHARU ([id number]) on 04/23/2024 3:37:54 PM Hookup Date: 20240410 Hookup Time: [id number] Recording Duration: 786510 S Minimum Heart Rate: 45 BPM Minimum Heart Rate Date/Time: 20240411 Maximum Heart Rate: 164 BPM Maximum Heart Rate Date/Time: 20240412013 Average Heart Rate: 79 BPM Longest RR: 1.828 S Longest RR DATE/TIME: 20240411308 QRS complexes: 539422 Ventricular Ectopics: 5 Ventricular Isolated Beats: 5 Ventricular Bigeminal Cycles: 0 Ventricular Couplets: 0 Ventricular Runs: 0 Ventricular Beats in Runs: 0 Supraventricular Ectopics: 7 Supraventricular Isolated Beats: 7 Supraventricular Couplets: 0 Supraventricular Runs: 0 Supraventricular Beats in Runs: 0 Overreading Physician: CHARU PRAJAPATI MD Normal [facility] ECG COMPLETEon 04-07-2024 Atrial Rate 87 BPM [facility] Calculated P [place] 66 degrees [facility] Calculated R [place] 95 degrees [facility] Calculated T [place] 9 degrees [facility] P-R Interval 128 ms [facility] QRS Duration 82 ms [facility] QT Interval 340 ms [facility] QTC Calculation (Bazett) 409 ms [facility] Ventricular Rate [address] [facility] NORMAL SINUS RHYTHM POSSIBLE LEFT ATRIAL ENLARGEMENT RIGHT AXIS NONSPECIFIC T WAVE ABNORMALITY ABNORMAL ECG NO PREVIOUS ECGS AVAILABLE Confirmed by GERARD MANUEL M.D. ([id number]) on 04/07/2024 1:19:49 PM [facility] NAME : JANIE STALLWORTH PID : [id number] : 2005 Gender : Female Race : ORD : Procedure Date : Apr 05 2024 16:17:37 Edit Date : Apr 07 2024 13:19:50 Diagnosis: NORMAL SINUS RHYTHM POSSIBLE LEFT ATRIAL ENLARGEMENT RIGHT AXIS NONSPECIFIC T WAVE ABNORMALITY ABNORMAL ECG NO PREVIOUS ECGS AVAILABLE Confirmed by GERARD MANUEL M.D. () on 04/07/2024 1:19:49 PM Test Reason : Location : [facility] : [facility] Overread By : GERARD MANUEL M.D. Edited By : GERARD MANUEL M.D. Referred By : , Acquired by : , [facility] CBC panel Auto (Bld)on 04-06 Erythrocyte distribution width (RBC) [Ratio] 11.9 % 11.5 - 15.0 % [facility] Hematocrit (Bld) [Volume fraction] 42.5 % 36.0 - 46.0 % [facility] Hemoglobin (Bld) [Mass/Vol] 14.5 g/dL 11.5 - 15.5 g/dL [facility] Interpretation and review of laboratory results Abnormal [facility] MCH (RBC) [Entitic mass] 29.5 pg 26.0 - 34.0 pg [facility] MCHC (RBC) [Mass/Vol] 34.1 g/dL 30.5 - 36.0 g/dL [facility] MCV (RBC) [Entitic vol] 86.4 fL 80.0 - 100.0 fL [facility] Nucleated RBC (Bld) [#/Vol] NINF [facility] Platelet mean volume (Bld) [Entitic vol] 9.9 fL 9.0 - 12.7 fL [facility] Platelets (Bld) [#/Vol] 412 10*3/uL High [facility] RBC (Bld) [#/Vol] 4.92 10*6/uL 3.90 - 5.2 0 m/uL [facility] WBC (Bld) [#/Vol] 9.19 10*3/uL [facility] Comprehensive metabolic 2000 panelon 04-06-2024 Albumin [Mass/Vol] 5.2 g/dL High 3.9 - 4.9 g/dL [facility] ALP [Catalytic activity/Vol] 70 U/L 34 - 123 U/L [facility] ALT [Catalytic activity/Vol] 12 U/L 7 - 38 U/L [facility] Anion gap [Moles/Vol] 13 mmol/L 8 - 15 mmol/L [facility] AST [Catalytic activity/Vol] 18 U/L 13 - 35 U/L [facility] Bilirubin [Mass/Vol] 0.5 mg/dL 0.2 - 1 .3 mg/dL [facility] Calcium [Mass/Vol] 10.3 mg/dL High 8.5 - 10. 2 mg/dL [facility] Chloride [Moles/Vol] 103 mmol/L 98 - 10 7 mmol/L [facility] CO2 [Moles/Vol] 25 mmol/L 22 - 30 mmol/L [facility] Creatinine [Mass/Vol] 0.93 mg/dL 0.58 - 0.96 mg/dL [facility] GFR/1.73 sq M.predicted among non-blacks MDRD (S/P/Bld) [Vol rate/Area] 90 mL/min/{1.73_m2} - PINF [facility] Comment on above: Estimated Glomerular Filtration [...] 107 mg/dL High 74 - 99 mg/dL [facility] Comment on above: The [employer] Diabete s Association (ADA) provides guidance for [...] Standards of Medical Care in Diabetes 2016, [employer] Diabetes Association. Diabetes Care. 2016.39(Suppl 1). Interpretation and review of laboratory results Abnormal [facility] Potassium [Moles/Vol] 4.4 mmol/L 3.7 - 5.1 mmol/L [facility] Protein [Mass/Vol] 7.7 g/dL 6.3 - 8.0 g/dL [facility] Sodium [Moles/Vol] 141 mmol/L 136 - 144 mmol/L [facility] Urea nitrogen [Mass/Vol] 16 mg/dL 7 - 21 mg/dL [facility] TSH W/REFLEX FT4on 4 Interpretation and review of laboratory results Abnormal [facility] TSH Qn 6.610 m[IU]/L High [facility] Comment on above: If the patient [...] Jade, et al. 2017 Guidelines of the [employer] Thyroid Association for the Diagnosis and Management of Thyroid Disease during and the . Thyroid, 2017:27:3:315-389. [facility] CBC panel Auto (Bld)on 04-05 Erythrocyte distribution width (RBC) [Ratio] 11.9 % Normal 11.5-15.0 [facility] Comment on above: Order Comment: Speci men Type: BLOOD SPECIMENOrdering Facility: [facility] Address: [address] [place], [place] [address] Performed By: #### 5 8410-2 ####[facility] LABCLIA [id number] [place] [address] [place] Hematocrit (Bld) [Volume fraction] 42.5 % Normal 36.0-46.0 [facility] Comment on above: Order Comment: Speci men Type: BLOOD SPECIMENOrdering Facility: [facility] Address: [address] [place] [address] Performed By: #### 5 8410-2 ####[facility] LABCLIA [id number] [place] [address] [place] Hemoglobin (Bld) [Mass/Vol] 14.5 g/dL Normal 11.5-15.5 [facility] Comment on above: Order Comment: Speci men Type: BLOOD SPECIMENOrdering Facility: [facility] Address: [address] [place] [address] Performed By: #### 5 8410-2 ####[facility] LABCLIA [id number] [place] [address] [place] MCH (RBC) [Entitic mass] 29.5 pg Normal 26.0-34.0 [facility] Comment on above: Order Comment: Speci men Type: BLOOD SPECIMENOrdering Facility: [facility] Address: [address] [place] [address] Performed By: #### 5 8410-2 ####[facility] LABIA [id number] [place] [address] [place] MCHC (RBC) [Mass/Vol] 34.1 g/dL Normal 30.5-36.0 [facility] Comment on above: Order Comment: Speci men Type: BLOOD SPECIMENOrdering Facility: [facility] Address: [address] [place] [address] Performed By: #### 5 8410-2 ####[facility] LABCLIA [id number] [place] [address] [place] MCV (RBC) [Entitic vol] 86.4 fL Normal 80.0-100.0 [facility] Comment on above: Order Comment: Speci men Type: BLOOD SPECIMENOrdering Facility: [facility] Address: [address] [place] [address] Performed By: #### 5 8410-2 ####[facility] LABIA [id number] [place] [address] [place] Nucleated RBC (Bld) [#/Vol] 10*3/uL Normal <0.01 [facility] Comment on above: Order Comment: Speci men Type: BLOOD SPECIMENOrdering Facility: [facility] Address: [address] [place] [address] Performed By: #### 5 8410-2 ####[facility] LABIA [id number] [place] [address] [place] Platelet mean volume (Bld) [Entitic vol] 9.9 fL Normal 9.0-12.7 [facility] Comment on above: Order Comment: Speci men Type: BLOOD SPECIMENOrdering Facility: [facility] Address: [address] [place] [address] Performed By: #### 5 8410-2 ####[facility] LABIA [id number] [place] [address] [place] Platelets (Bld) [#/Vol] 412 10*3/uL High 150-400 [facility] Comment on above: Order Comment: Speci men Type: BLOOD SPECIMENOrdering Facility: [facility] Address: [address] [place] [address] Performed By: #### 5 8410-2 ####[facility] LABIA [id number] [place] [address] [place] RBC (Bld) [#/Vol] 4.92 10*6/uL Normal 3.90-5.20 [facility] Comment on above: Order Comment: Speci men Type: BLOOD SPECIMENOrdering Facility: [facility] Address: [address] [place] [address] Performed By: #### 5 8410-2 ####[facility] LABCLIA [id number] [place] [id number] [place] WBC (Bld) [#/Vol] 9.19 10*3/uL Normal 3.70-11.00 [facility] Comment on above: Order Comment: Speci men Type: BLOOD SPECIMENOrdering Facility: [facility] Address: [address] [address] Performed By: #### 5 8410-2 ####[facility] LABCLIA [id number] [address] [place] CNOVon 04-05-2024 CNOV Office Visit (FMIUNI ) -------- TRAVON STALLWORTH ([id number]) 1 F Date Time Provider Department 04/05/24 [...] (HCC) [F60.3] Order(s):ECG COMPLETE [ECG01] Order #: [id number] FUTURE COMPLETE BLOOD COUNT [SQCBC] Order #: [id number] FUTURE COMPREHENSIVE METABOLIC PANEL [SQCMP] Order #: [id number] FUTURE TSH W/REFLEX FT4 [SQTSHRF] Order #: [id number] FUTURE HOLTER MONITOR 48 HOUR [0455179] Order #: [id number] FUTURE ECG COMPLETE [ECG01] Order #: [id number]. #:[id number] ECG COMPLETE [ECG01] Order #: [id number]. #:[id number] Prescriptions as of 05/24/2024 - levothyroxine (SYNTHROID) [...] Encounter Status:Closed by ANTIONETTE BENITEZ on 05/24/24 [facility]05[facility]20[facility] Tele[facility] (FMIUNI) -------- TRAVON STALLWORTH ([id number]) 1 F Date Time Provider Department 04/05/24 ANTIONETTE BENITEZ N FMIUNI During your visit today, we recorded the following information about you: Vanda Fritz 04/05/2024 3:49 PM Signed Jen at [facility] [address] office Needing [...] Status:Closed by BENJY ADHIKARI on 04/08/24 Normal [facility] Comprehensive metabolic 2000 panelon 04-05-2024 Albumin [Mass/Vol] 5.2 g/dL High 3.9-4.9 [facility] Comment on above: Order Comment: Speci men Type: BLOOD SPECIMENOrdering Facility: [facility] Address: [address] [place] [address] Performed By: #### 2 4323-8, [facility], 3023-7 ####[facility] LABIA [id number] [place] [address] [place] ALP [Catalytic activity/Vol] 70 U/L Normal 34-123 [facility] Comment on above: Order Comment: Speci men Type: BLOOD SPECIMENOrdering Facility: [facility] Address: [address] [place] [address] Performed By: #### 2 4323-8, [facility], 3023-7 ####[facility] LABIA [id number] [place] [address] [place] ALT [Catalytic activity/Vol] 12 U/L Normal 7-38 [facility] Comment on above: Order Comment: Speci men Type: BLOOD SPECIMENOrdering Facility: [facility] Address: [address] [place] [address] Performed By: #### 2 4323-8, TSHRF, 7 ####[facility] LABCLIA [id number] [place] [address] [place] Anion gap [Moles/Vol] 13 mmol/L Normal 8-15 [facility] Comment on above: Order Comment: Speci men Type: BLOOD SPECIMENOrdering Facility: [facility] Address: [address] [place] [address] Performed By: #### 2 432-8, TSH[facility], 3023-10 ####[facility] LABCLIA [id number] [place] [address] [place] AST [Catalytic activity/Vol] 18 U/L Normal 13-35 [facility] Comment on above: Order Comment: Speci men Type: BLOOD SPECIMENOrdering Facility: [facility] Address: [address] [place] [address] Performed By: #### 2 432-8, TSHRF, 3023-10 ####[facility] LABCLIA [id number] [place] [address] [place] Bilirubin [Mass/Vol] 0.5 mg/dL Normal 0.2-1.3 [facility] Comment on above: Order Comment: Speci men Type: BLOOD SPECIMENOrdering Facility: [facility] Address: [address] [place] [address] Performed By: #### 2 4323-8, TSHRF, 3023-10 ####[facility] LABCLIA [id number] [place] [id number] [place] Calcium [Mass/Vol] 10.3 mg/dL High 8.5-10.2 [facility] Comment on above: Order Comment: Speci men Type: BLOOD SPECIMENOrdering Facility: [facility] Address: [address] [place] [address] Performed By: #### 2 4323-8, TSHRF, 7 ####[facility] LABCLIA [id number] [place] [address] [place] Chloride [Moles/Vol] 103 mmol/L Normal 98-107 [facility] Comment on above: Order Comment: Speci men Type: BLOOD SPECIMENOrdering Facility: [facility] Address: [address] [place] [address] Performed By: #### 2 4323-8, [facility], 302-7 ####[facility] [id number] [place] [address] [place] CO2 [Moles/Vol] 25 mmol/L Normal 22-30 [facility] Comment on above: Order Comment: Speci men Type: BLOOD SPECIMENOrdering Facility: [facility] Address: [address] [place] [address] Performed By: #### 2 4323-8, [facility], 3027 ####[facility] [id number] [place] [address] [place] Creatinine [Mass/Vol] 0.93 mg/dL Normal 0.58-0.96 [facility] Comment on above: Order Comment: Speci men Type: BLOOD SPECIMENOrdering Facility: [facility] Address: [address] [place] [address] Performed By: #### 2 4323-8, [facility], 3024-7 ####[facility] [id number] [place] [address] [place] Creatinine and Glomerular filtration rate.predicted panel (S/P/Bld) 90 mL/min/1.73m??? Normal >=60 [facility] Comment on above: Order Comment: Speci men Type: BLOOD SPECIMENOrdering Facility: [facility] Address: [address] [place] [address] Result Comment: Faustina mated Glomerular Filtration Rate [...] actual GFR. Performed By: #### 2 4323-8, [facility], 3023-10 ####[facility] LABCLIA [id number] [address] [address] [place] Glucose [Mass/Vol] 107 mg/dL High 74-99 [facility] Comment on above: Order Comment: Speci men Type: BLOOD SPECIMENOrdering Facility: [facility] Address: [address] [place] [address] Result Comment: The [place] Diabetes Association (ADA) provides guidance for cutoff [...] Standards of Medical Care in Diabetes 2016, [place] Diabetes Association. Diabetes Care. 2016.39(Suppl 1). Performed By: #### 2 4323-8, [facility], 3023-10 ####[facility] LABCLIA [id number] [address] [address] [place] Potassium [Moles/Vol] 4.4 mmol/L Normal 3.7-5.1 [facility] Comment on above: Order Comment: Speci men Type: BLOOD SPECIMENOrdering Facility: [facility] Address: [address] [place] [address] Performed By: #### 2 432-8, [facility], 3023-10 ####[facility] LABCLIA [id number] [address] [address] [place] Protein [Mass/Vol] 7.7 g/dL Normal 6.3-8.0 [facility] Comment on above: Order Comment: Speci men Type: BLOOD SPECIMENOrdering Facility: [facility] Address: [address] [place] [address] Performed By: #### 2 4323-8, TSHRF, 7 ####[facility] LABCLIA [id number] [place] [address] [place] Sodium [Moles/Vol] 141 mmol/L Normal 136-144 [facility] Comment on above: Order Comment: Speci men Type: BLOOD SPECIMENOrdering Facility: [facility] Address: [address] [place] [address] Performed By: #### 2 4323-8, TSH, 3023-10 ####[facility] LABCLIA [id number] [place] [address] [place] Urea nitrogen [Mass/Vol] 16 mg/dL Normal 7-21 [facility] Comment on above: Order Comment: Speci men Type: BLOOD SPECIMENOrdering Facility: [facility] Address: [address] [place] [address] Performed By: #### 2 4323-8, TSH, 3023-10 ####[facility] LABCLIA [id number] [place] [address] [place] [id number] 04-05-2024 ECG01 Ventricular Rate : 8 7 BPM Atrial Rate : 87 BPM P-R Interval : 128 ms QRS Duration : 82 ms Q-T Interval : 340 ms QTC Calculation(Bazett) : 409 ms Calculated P [place] : 66 degrees Calculated R [place] : 95 degrees Calculated T [place] : 9 degrees NORMAL SINUS RHYTHM POSSIBLE LEFT ATRIAL ENLARGEMENT RIGHT AXIS NONSPECIFIC T WAVE ABNORMALITY ABNORMAL ECG NO PREVIOUS ECGS AVAILABLE Confirmed by GERARD MANUEL M.D. ([id number]) on 04/07/2024 1:19:49 PM NAME : TRAVON STALLWORTH PID : [id number] : 2005 Gender : Female Race : ORD : Procedure Date : Apr 05 2024 16:17:37 Edit Date : Apr 07 2024 13:19:50 Diagnosis: NORMAL SINUS RHYTHM POSSIBLE LEFT ATRIAL ENLARGEMENT RIGHT AXIS NONSPECIFIC T WAVE ABNORMALITY ABNORMAL ECG NO PREVIOUS ECGS AVAILABLE Confirmed by GERARD MANUEL M.D. (91) on 04/07/2024 1:19:49 PM Test Reason : Location : [facility] : [facility] Overread By : GERARD MANUEL M.D. Edited By : GERARD MANUEL M.D. Referred By : , Acquired by : , Normal [facility] T4 Free SerPl-mCncon 024 Free T4 [Mass/Vol] 1.5 ng/dL Normal 0.9-1.7 [facility] Comment on above: Order Comment: Nahed pruitt Type: BLOOD SPECIMENOrdering Facility: [facility] Address: [address] [place] [address] Performed By: #### 2 4323-8, TSHRF, 3024-7 ####[facility] LABCLIA [id number] [place] [address] [place] TSH W/REFLEX FT4on 4 TSH Qn 6.610 m[IU]/L High 0.510-4.300 [facility] Comment on above: Order Comment: Nahed pruitt Type: BLOOD SPECIMENOrdering Facility: [facility] Address: [address] [place] [address] Result Comment: If t he patient is , TSH reference range varies by gestational period: First Trimester (weeks 9-12): 0.180-2.990 mIU/L Second Trimester: 0.110-3.980 mIU/L Third Trimester: 0.480-4.710 mIU/L Malcolm Molina et al. A Practical Approach for the Verifications and Determination of Site- and Trimester-Specific Reference Intervals for Thyroid Function tests in . Thyroid, 2019:29:3:412-420. Rubio Jade et al. 2017 Guidelines of the Japanese Thyroid Association for the Diagnosis and Management of Thyroid Disease during and the . Thyroid, 2017:27:3:315-389. Performed By: #### 2 4323-8, TSHRF, 3024-7 ####[facility] LABCLIA [id number] [facility] [id number] [address] [place] [facility] COMPLETE URINALYSISon 2023 BACTERIA (#/HPF) IN URINE Few Abnormal Negative [facility] Comment on above: Performed By: #### L [id number] ####Physical Therapist Technician: DUGLAS CASTILLO ([phone])[facility] ([facility])[address] [place] [address] BILIRUBIN, TOTAL PRESENCE IN URINE Negative Normal Negative [facility] Comment on above: Performed By: #### L [id number] ####Physical Therapist Technician: DUGLAS CASTILLO ([phone])[facility] ([facility])[address] [place] [address] Clarity (U) Turbid Abnormal Clear [facility] Comment on above: Performed By: #### L [id number] ####Physical Therapist Technician: DUGLAS CASTILLO ([phone])[facility] ([facility])[address] [place] [address] Color (U) Light Yellow Normal Lt. Yellow [facility] Comment on above: Performed By: #### L [id number] ####Physical Therapist Technician: DUGLAS CASTILLO ([phone])[facility] ([facility])[address] [place] [address] GLUCOSE (MG/DL) IN URINE Normal Normal Normal (<70) [facility] Comment on above: Performed By: #### L [id number] ####Physical Therapist Technician: DUGLAS CASTILLO ([phone])[facility])[address] [place] [address] HEMOGLOBIN PRESENCE IN URINE 1.0 mg/dL Abnormal Negative [facility] Comment on above: Performed By: #### L [id number] ####Physical Therapist Technician: DUGLAS CASTILLO ([phone])[facility] ([facility])[address] [place] [address] HYALINE CASTS (#/LPF) IN URINE SEDIMENT BY MICROSCOPY Negative Normal Negative [facility] Comment on above: Performed By: #### L [id number] ####Physical Therapist Technician: DUGLAS CASTILLO ([phone])[facility] ([facility])[address] [place] [address] Ketones Ql (U) Negative Normal Negative [facility] Comment on above: Performed By: #### L [id number] ####Physical Therapist Technician: DUGLAS CASTILLO ([phone])[facility])[address] [place] [address] LEUKOCYTE ESTERASE PRESENCE IN URINE BY TEST STRIP 500 Gustavo/uL Abnormal Negative [facility] Comment on above: Performed By: #### L [id number] ####Physical Therapist Technician: DUGLAS CASTILLO ([phone])[facility])[address] [place] [address] NITRITE PRESENCE IN URINE Negative Normal Negative [facility] Comment on above: Performed By: #### L [id number] ####Physical Therapist Technician: DUGLAS CASTILLO ([phone])[facility] ([facility])[address] [place] [address] pH (U) 7.0 [pH] Normal 5.0-8.0 [facility] Comment on above: Performed By: #### L [id number] ####Physical Therapist Technician: DUGLAS CASTILLO ([phone])[facility])[address] [place] [address] Protein (U) [Mass/Vol] 10 mg/dL Abnormal Negative [facility] Comment on above: Performed By: #### L [id number] ####Physical Therapist Technician: DUGLAS CASTILLO ([phone])[facility])[address] [place] [address] RBC (#/HPF) IN URINE SEDIMENT 11-25 Abnormal 0-2 [facility] Comment on above: Performed By: #### L [id number] ####Physical Therapist Technician: DUGLAS CASTILLO ([phone])[facility])[address] [place] [address] Specific gravity (U) [Rel density] 1.005 Normal 1.005-1.030 [facility] Comment on above: Performed By: #### L [id number] ####Physical Therapist Technician: DUGLAS CASTILLO ([phone])[facility] ([facility])[address] [place] [address] SQUAMOUS EPITHELIAL CELLS (#/HPF) IN URINE SEDIMENT 0-2 Normal 3-5 [facility] Comment on above: Performed By: #### L [id number] ####Physical Therapist Technician: DUGLAS CASTILLO ([phone])[facility] [place] [address] UROBILINOGEN (MG/DL) IN URINE Normal Normal Normal (0-1) [facility] Comment on above: Performed By: #### L [id number] ####Physical Therapist Technician: DUGLAS CASTILLO ([phone])[facility] [place] [address] WBC (LEUKOCYTE) (#/HPF) IN URINE SEDIMENT >100 Abnormal 0-5 [facility] Comment on above: Performed By: #### L [id number] ####Physical Therapist Technician: DUGLAS CASTILLO ([id number])[facility] [place] [address] WBC (LEUKOCYTE) CLUMPS (#/HPF) IN URINE SEDIMENT Few Abnormal Negative [facility] Comment on above: Performed By: #### L [id number] ####Physical Therapist Technician: DUGLAS CASTILLO ([phone])[facility])[address] [place] [address] ED Provider Noteon ED Provider Note Emergency Department Encounter [facility] EMERGENCY DEPT Patient: Travon Stallworth : 2005 Date of Evaluation: 03/16/2024 ED Supervising Physician: Roney Abdi DO I personally evaluated Travon Stallworth and [...] contact the dictating provider for clarification.) Roney Abdi DO [employer] Roney Abdi DO 03/17/24 0649 [facility] ED Provider Note EMERGENCY DEPARTMENT ENCOUNTER Pt [...] so then boyfriend called laura to bring her to the ED. Here [...] 94% We (more content not included)... Normal [facility] HCG QUALITATIVE URINEon 11 Beta HCG ( test) Ql (U) Negative Normal Negative [facility] Comment on above: Result Comment: Plea se note: Very dilute urine specimens, as indicated by a low specific gravity, may not contain marketing development representative levels of hCG. If is still suspected, a first morning urine specimen should be collected 48 hours later and tested. ORDER COMMENTS: is the most common reason for HCG in urine, although choriocarcinoma, hydatidiform mole, and certain nontrophoblastic malignancies also result in detectable urinary HCG levels. Sensitivity = 20mIU/mL. Performed By: #### L [id number] ####Physical Therapist Technician: DUGLAS CASTILLO ([phone])[facility] ([facility])[address] [place] [address] Laboratory - Chemistry and C hemistry - challengeOrdered By: Maria Guadalupe Serna on 03-16-2024 Beta HCG ( test) Ql Negative Negative [facility] Comment on above: Please note: Very di lute urine specimens, as indicated by a low specific gravity, may not contain marketing development representative levels of hCG. If is still suspected, a first morning urine specimen should be collected 48 hours later and tested. Beta HCG ( test) Ql (U) is the most common reason for HCG in urine, although choriocarcinoma, hydatidiform mole, and certain nontrophoblastic malignancies also result in detectable urinary HCG levels. Sensitivity = 20mIU/mL. [facility] No Panel InformationOrdered By: Maria Guadalupe Serna on 03-16-2024 [facility] Urinalysis complete panel (U )Ordered By: López Pena on 03-16-2024 Bacteria LM.HPF (Urine sed) [#/Area] Few Abnormal Negative /HPF [facility] Bilirubin Ql (U) Negative Negative mg/dL [facility] Clarity (U) Turbid Abnormal Clear [facility] Color (U) Light Yellow Lt. Yellow [facility] Epithelial cells.squamous LM.HPF (Urine sed) [#/Area] 0-2 [facility] Glucose Ql (U) Normal Normal (<70) mg/dL [facility] Hemoglobin Ql (U) 1.0 mg/dL Abnormal Negative [facility] Hyaline casts Auto (Urine sed) [#/Area] Negative Negative /LPF [facility] Interpretation and review of laboratory results Abnormal [facility] Ketones (U) [Mass/Vol] Negative Negat payton mg/dL [facility] Leukocyte clumps LM.HPF (Urine sed) [#/Area] Few Abnormal Negative /HPF [facility] Leukocyte esterase Test strip Ql (U) 500 Abnormal Negative Gustavo/uL [facility] Nitrite Ql (U) Negative Negative [facility] th pH (U) 7.0 [pH] 5.0 - 8.0 pH [facility] Protein (U) [Mass/Vol] 10 mg/dL Abnormal Negative [facility] RBC LM.HPF (Urine sed) [#/Area] 11-25 Abnormal [facility] Specific gravity (U) [Rel density] 1.005 1.005 - 1.030 [facility] Urobilinogen (U) [Mass/Vol] Normal Normal (0-1) mg/dL [facility] WBC LM.HPF (Urine sed) [#/Area] /[HPF] Abnormal [facility] BLD HCG (QUAL)on 02-07-2024 BLD HCG (QUAL) Negative Normal (NEG) [facility] Comment on above: Order Comment: STAT FACILITY: [facility] [id number] Performed By: #### P REG #### [facility] [address] [facility], [address] CHLAMYDIA/GC BY PCRon 2023 CHLAMYDIA/GC BY [...] are dependent on adequate specimen collection. Normal [facility] Comment on above: Performed By: #### C GS #### [facility] ([id number]) [address] [place] [address], [address] [place] [address] Cytologyon 02-07-2024 Cytology Normal [facility] Comment on above: Result Comment: [facility] [address] [place] [address] Gynecologic Cytology Consultation Patient Name:TRAVON STALLWORTH:2005 (Age: 18)Gender:FTaken:4Reported:02/27/2024hysician(s):Julius Castro M.D. ([phone])Copy To: Rec. #:[id number]: #[id number] Final Cytologic Interpretation ThinPrep Pap Test (Cervical/Endocervical): Satisfactory for evaluation. A transformation zone component is present. NEGATIVE FOR INTRAEPITHELIAL LESION OR MALIGNANCY. az/02/27/2024 Interpretation performed at [facility], [address] [place] [address], License number: [id number]. 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 The Pap test is primarily effective for the diagnosis and prevention of squamous cell carcinoma. Regular screening is critical for prevention. ThinPrep liquid-based slides, which meet the Table Setter criteria for automated screening, have been screened by the ThinPrep Imaging System (as of 01/08/07) along with an additional manual rescreening by a radiology transporter and, if indicated, by a pathologist. VAGINITIS [...] clinical presentation to determine patient diagnosis. Normal [facility] Comment on above: Performed By: #### V PPCR #### [facility] ([id number]) [address], [address] [place] [address] THYROID PROFILEon 11-30-2023 Free T4 [Mass/Vol] 1.20 ng/dL Normal 0.61-1.60 [facility] Comment on above: Performed By: #### T HYR #### [facility] ([id number]) [address], [address] [place] [address] TSH 2.47 uIU/mL Normal 0.49-4.67 [facility] Comment on above: Performed By: #### T HYR #### [facility] ([id number]) [address] [place] [address], [facility] [address] [place] [address] GLUCOSE,FASTINGon 12-18-2021 Glucose [Mass/Vol] 87 mg/dL Normal 74 - 99 [facility] Comment on above: Result Comment: INCR EASED RISK FOR DIABETES 100-125 mg/dL DIAGNOSTIC OF DIABETES >=126 mg/dL Diagnosis of diabetes mellitus requires confirmation of an abnormal result by repeat testing. [place] Diabetes Association, Diabetes Care; 33(Supp 1), Apr 2009. Performed By: #### G LUCF #### [facility] [address] [place] [address] LIPID PANEL (CORONARY RISK 2 )on 12-18-2021 Cholesterol [Mass/Vol] 115 mg/dL Normal 0 - 199 [facility] Comment on above: Result Comment: . AGE [...] dosing. Performed By: #### L IPID #### [facility] [address] [place] [address] Cholesterol in HDL [Mass/Vol] 50.4 mg/dL Normal [facility] Comment on above: Result Comment: . AGE VERY LOW LOW NORMAL HIGH 0-19 Y < 35 < 40 40-45 ---- 20-24 Y ---- < 40 >45 ---- >24 Y ---- < 40 40-60 >60 . Performed By: #### L IPID #### [facility] [address] [place] [address] Cholesterol in LDL [Mass/Vol] 58 mg/dL Normal 0 - 109 [facility] Comment on above: Result Comment: . NEAR BORD AGE DESIRABLE OPTIMAL HIGH HIGH VERY HIGH 0-19 Y 0 - 109 --- 110-129 >/= 130 ---- 20-24 Y 0 - 119 --- 120-159 >/= 160 ---- >24 Y 0 - 99 100-129 130-159 160-189 >/=190 . Performed By: #### L IPID #### [facility] [address] [place] [address] Cholesterol in VLDL [Mass/Vol] 6 mg/dL Normal 0 - 40 [facility] Comment on above: Performed By: #### L IPID #### [facility] [address] [place] [address] Cholesterol.total/Chol esterol in HDL [Mass ratio] 2.3 {ratio} Normal [facility] Comment on above: Result Comment: REF VALUES DESIRABLE < 3.4 HIGH RISK > 5.0 Performed By: #### L IPID #### [facility] [address] [place] [address] NON-HDL CHOLESTEROL 65 mg/dL Normal 0 - 119 [facility] Comment on above: Result Comment: AGE DESIRABLE BORDERLINE HIGH HIGH VERY HIGH 0-19 Y 0 - 119 120 - 144 >/= 145 >/= 160 20-24 Y 0 - 149 150 - 189 >/= 190 ---- >24 Y 30 MG/DL ABOVE LDL CHOLESTEROL GOAL . Performed By: #### L IPID #### [facility] [address] [place] [address] Triglyceride [Mass/Vol] 32 mg/dL Normal 0 - 149 [facility] Comment on above: Result Comment: . AGE [...] dosing. Performed By: #### L IPID #### [facility] [address] [place] [address] VITAMIN D, 25-HYDROXYon 11-23 VITAMIN D, 25-HYDROXY 35 ng/mL Normal [facility] Comment on above: Result Comment: . DEFICIENCY: < 20 NG/ML INSUFFICIENCY: 20-29 NG/ML SUFFICIENCY: 30-100 NG/ML THIS ASSAY ACCURATELY QUANTIFIES THE SUM OF VITAMIN D3, 25-HYDROXY AND VIT D2,25-HYDROXY. Performed By: #### V TDOH #### [facility] [address] [place] [address] ACUTE TOXICOLOGY PANEL, JUAN Claudio 12-17-2021 Acetaminophen [Mass/Vol] ug/mL Normal 10.0 - 30.0 [facility] Comment on above: Performed By: #### D RUBL ####[facility] [place] [address] Ethanol [Mass/Vol] mg/dL Normal [place] [facility] Comment on above: Result Comment: FOR MEDICAL USE ONLY. . REF VALUES <10 Performed By: #### D RUBL ####[place] [address] SALICYLATE <3 Normal 4 - 20 [facility] Comment on above: Performed By: #### D RUBL ####[place] [address] CBC AND DIFFERENTIALon 12-17 % AUTOMATED IMMATURE GRAN 0.2 % Normal 0.0 - 0.9 [facility] Comment on above: Result Comment: Maggi ture Granulocyte Count (IG) includes promyelocytes, myelocytes and metamyelocytes but does not include bands. Percent differential counts (%) should be interpreted in the context of the absolute cell counts (cells/L). Performed By: #### C BCDF #### [place] [address] Basophils (Bld) [#/Vol] 0.09 10*3/uL Normal 0.00 - 0.10 [facility] Comment on above: Performed By: #### C BCDF #### [place] [address] Basophils/100 WBC (Bld) 1.1 % Normal 0.0 - 2.0 [facility] Comment on above: Performed By: #### C BCDF #### [place] [address] Eosinophils (Bld) [#/Vol] 0.38 10*3/uL Normal 0.00 - 0.70 [facility] Comment on above: Performed By: #### C BCDF #### [place] [address] Eosinophils/100 WBC (Bld) 4.7 % Normal 0.0 - 6.0 [facility] Comment on above: Performed By: #### C BCDF #### [address] [address] Erythrocyte distribution width (RBC) [Ratio] 11.8 % Normal 11.5 - 14.5 [facility] Comment on above: Performed By: #### C BCDF #### [place] [address] Hematocrit (Bld) [Volume fraction] 35.1 % Low 36.0 - 46.0 [facility] Comment on above: Performed By: #### C BCDF #### [place] [address] Hemoglobin (Bld) [Mass/Vol] 12.1 g/dL Normal 12.0 - 16.0 [facility] Comment on above: Performed By: #### C BCDF #### [place] [address] Lymphocytes (Bld) [#/Vol] 1.72 10*3/uL Normal 1.20 - 4.80 [facility] Comment on above: Performed By: #### C BCDF #### [place] [address] Lymphocytes/100 WBC (Bld) 21.4 % Normal 13.0 - 44.0 [facility] Comment on above: Performed By: #### C BCDF #### [place] [address] MCHC (RBC) [Mass/Vol] 34.5 g/dL Normal 32.0 - 36.0 [facility] Comment on above: Performed By: #### C BCDF #### [place] [address] MCV (RBC) [Entitic vol] 83 fL Normal 80 - 100 [facility] Comment on above: Performed By: #### C BCDF #### [place] [address] Monocytes (Bld) [#/Vol] 0.54 10*3/uL Normal 0.10 - 1.00 [facility] Comment on above: Performed By: #### C BCDF #### [place] [address] Monocytes/100 WBC (Bld) 6.7 % Normal 2.0 - 10.0 [facility] Comment on above: Performed By: #### C BCDF #### [address] [address] Neutrophils (Bld) [#/Vol] 5.28 10*3/uL Normal 1.20 - 7.70 [place] Comment on above: Performed By: #### C BCDF #### [address] [address] Neutrophils/100 WBC (Bld) 65.9 % Normal 40.0 - 80.0 [facility] Comment on above: Performed By: #### C BCDF #### [address] [address] Platelets (Bld) [#/Vol] 309 10*3/uL Normal 150 - 450 [facility] Comment on above: Performed By: #### C BCDF #### [place] [address] RBC 4.25 x10E12/L Normal 4.00 - 5.20 [facility] Comment on above: Performed By: #### C BCDF #### [place] [address] WBC (Bld) [#/Vol] 8.0 10*3/uL Normal 4.4 - 11.3 [place] [facility] Comment on above: Performed By: #### C BCDF #### [address] [address] COMPREHENSIVE PANELon 2021 Albumin [Mass/Vol] 4.4 g/dL Normal 3.4 - 5.0 [place] [facility] Comment on above: Performed By: #### C MP ####[address] [address] ALP [Catalytic activity/Vol] 61 U/L Normal 33 - 110 [facility] Comment on above: Performed By: #### C MP ####[address] [address] ALT [Catalytic activity/Vol] 8 U/L Normal 7 - 45 [facility] Comment on above: Result Comment: Snow ents treated with Sulfasalazine may generate falsely decreased results for ALT. Performed By: #### C MP ####[address] [address] Anion gap [Moles/Vol] 12 mmol/L Normal 10 - 20 [facility] Comment on above: Performed By: #### C MP ####[address] [address] AST [Catalytic activity/Vol] 13 U/L Normal 9 - 39 [facility] Comment on above: Performed By: #### C MP ####[address] [address] Bilirubin [Mass/Vol] 0.3 mg/dL Normal 0.0 - 1.2 [facility] Comment on above: Performed By: #### C MP ####[address] [address] Calcium [Mass/Vol] 9.1 mg/dL Normal 8.6 - 10.3 [place] [facility] Comment on above: Performed By: #### C MP ####[address] [address] Chloride [Moles/Vol] 107 mmol/L Normal 98 - 107 [facility] Comment on above: Performed By: #### C MP ####[address] [address] Creatinine [Mass/Vol] 0.85 mg/dL Normal 0.50 - 1.05 [facility] Comment on above: Performed By: #### C MP ####[address] [address] eGFR FEMALE >90 Normal >90 [facility] Comment on above: Result Comment: CALC ULATIONS OF ESTIMATED GFR ARE PERFORMED USING THE 2020 CKD-EPI STUDY REFIT EQUATION WITHOUT THE RACE VARIABLE FOR THE IDMS-TRACEABLE CREATININE METHODS. https://jasn.asnjournals.org/content//ASN.60959 750[address] Performed By: #### C MP ####[address] [address] Glucose [Mass/Vol] 94 mg/dL Normal 74 - 99 [place] [facility] Comment on above: Performed By: #### C MP ####[address] [address] HCO3 (Bld) [Moles/Vol] 24 mmol/L Normal 21 - 32 [facility] Comment on above: Performed By: #### C MP ####[address] [address] Potassium [Moles/Vol] 3.7 mmol/L Normal 3.5 - 5.3 [facility] Comment on above: Performed By: #### C MP ####[address] [address] Protein [Mass/Vol] 6.8 g/dL Normal 6.4 - 8.2 [place] [facility] Comment on above: Performed By: #### C MP ####[address] [address] Sodium [Moles/Vol] 139 mmol/L Normal 136 - 145 [place] [facility] Comment on above: Performed By: #### C MP ####[address] [address] Urea nitrogen [Mass/Vol] 9 mg/dL Normal 6 - 23 [place] Comment on above: Performed By: #### C MP ####[address] [address] CORONAVIRUS 2019, SCREEN ASY MPTOMATICon 12-17-2021 SARS-CoV-2 (COVID-19) RNA FERMÍN+probe Ql (Unsp spec) Not detected Normal Not Detected [facility] Comment on above: Result Comment: . This test has received FDA Emergency Use Authorization (EUA) and has been verified by [facility]. This test is only authorized for the duration of time that circumstances exist to justify the authorization of the emergency use of in vitro diagnostic tests for the detection of SARS-CoV-2 virus and/or diagnosis of COVID-19 infection under section 564(b)(1) of the Act, 21 U.S.C. 360bbb-3(b)(1), unless the authorization is terminated or revoked sooner. [facility] is certified under CLIA-88 as qualified to perform high complexity testing. Testing is performed in the [facility] laboratory located at [address] [place] [address]. SARS-CoV-2/Flu/RSV Multiplex Test: Fact sheet for providers: https://www.fda.gov/media/183352/download Fact sheet for patients: https://www.fda.gov/media/791789/download Performed By: #### C OVSC #### [place] [address] Lab Specimen Source Nasal, Nasopharyngeal Normal [facility] Comment on above: Performed By: #### C OVSC #### [place] [address] Clinical Event Noteon 2021 Clinical Event Note Clinical Event: Clinical Event Note: Details Patient is currently medically cleared for psychiatric placement. She has been observed for the overdose per poison control recommendation. She otherwise has remained hemodynamically stable. Electronic Signatures: Kenji Rivera () (Signed 17-Dec-2021 12:45) Authored: Clinical Event Note Last Updated: 17-Dec-2021 12:45 by Kenji Rivera () Normal [facility] Covid 19 Resultson 2 SARS-CoV-2 (COVID-19) [...] You may also be contacted by the [facility] to see if any of your close [...] or Naproxen (Aleve) can also be used. Oryd-hsa-irivham cough and cold medicines can be used according to the instructions on the package. Some ijfq-tdi-iwpfhxy medicines also contain acetaminophen. Make sure you [...] are not available, use alcohol-based hand senior communications specialist. Avoid touching your eyes, nose, and mouth [...] 24 fahad (more content not included)... Normal [facility] DRUG SCREEN,URINEon 12-18-19 22 AMPHETAMINE SCREEN,U Negative Normal NEGATIVE Janusz nson/[facility] Comment on above: Result Comment: CUTO FF LEVEL: 500 NG/ML Cross-reactivity has been reported with high concentrations of the following drugs: buproprion, chloroquine, chlorpromazine, ephedrine, mephentermine, fenfluramine, phentermine, phenylpropanolamine, pseudoephedrine, and propranolol. Performed By: #### D RUG3 #### [place] [address] BARBITURATES SCREEN,U Negative Normal NEGATIVE J[facility] inson/[facility] Comment on above: Result Comment: CUTO FF LEVEL: 200 NG/ML Performed By: #### D RUG3 #### [place] [address] BENZODIAZEPINES SCREEN,U Negative Normal NEGATIVE [facility] Comment on above: Result Comment: CUTO FF LEVEL: 200 NG/ML Performed By: #### D RUG3 #### [place] [address] CANNABINOIDS SCREEN,U Negative Normal NEGATIVE [facility] Comment on above: Result Comment: CUTO FF LEVEL: 50 NG/ML Performed By: #### D RUG3 #### [place] [address] COCAINE METABOLITE SCREEN,U Negative Normal NEGATIVE [facility] Comment on above: Result Comment: CUTO FF LEVEL: 150 NG/ML Performed By: #### D RUG3 #### [place] [address] DRUG SCREEN COMMENT SEE BELOW Normal Jun son[facility] Comment on above: Result Comment: Drug screen results are presumptive and should not be used to assess compliance with prescribed medication. Contact the performing [facility] laboratory to add-on definitive confirmatory testing if [...] directors. Performed By: #### D RUG3 #### [place] [address] FENTANYL SCREEN,URINE Negative Normal NEGATIVE [facility] Comment on above: Result Comment: CUTO FF LEVEL: 5 NG/ML Performed By: #### D RUG3 #### [place] [address] METHADONE SCREEN,U Negative Normal NEGATIVE [place] [facility] Comment on above: Result Comment: CUTO FF LEVEL: 150 NG/ML The metabolite K-mkhnr-ztirhnlwbciefk (LAAM) is not detected by this method in concentrations that would be found in the urine of patients on LAAM therapy. Performed By: #### D RUG3 #### [place] [address] OPIATES SCREEN,U Negative Normal NEGATIVE [facility] Comment on above: Result Comment: CUTO FF LEVEL: 300 NG/ML The opiate screen does not detect fentanyl, meperidine, or tramadol. Oxycodone is not consistently detected (refer to Oxycodone Screen, Urine result). Performed By: #### D RUG3 #### [place] [address] OXYCODONE SCREEN,U Negative Normal NEGATIVE [place] [facility] Comment on above: Result Comment: CUTO FF LEVEL: 100 NG/ML This test will accurately detect both oxycodone and oxymorphone. Performed By: #### D RUG3 #### [place] [address] PCP SCREEN,U Negative Normal NEGATIVE [facility] Comment on above: Result Comment: CUTO FF LEVEL: 25 NG/ML Cross-reactivity has been reported with dextromethorphan. Performed By: #### D RUG3 #### [place] [address] EMR ADDONon 12-17-2021 ADDON CONFIRMATION REQUEST REC'D Normal [facility] Comment on above: Performed By: #### E MRAD #### [facility] [address] [place] [address] HCG,URINEon 12-17-2021 Beta HCG ( test) Ql (U) Negative Normal Negative [facility] Comment on above: Performed By: #### H CGU ####[facility] [place] [address] MAGNESIUMon 12-17-2021 Magnesium [Mass/Vol] 1.85 mg/dL Normal 1.60 - 2.40 [facility] Comment on above: Performed By: #### M G #### [facility] [address] [place] [address] Provider Note - ED v3on 11-23 Provider [...] ventricular rate of 66, normal axis, normal [place] interval of 158 ms, normal QRS duration [...] Triage - ED 16-Dec-2021 22:36 Normal [facility] Triage - EDon 12-17-2021 Triage - [...] patient cognitively impaired not cognitively impaired Interventions: Kelvin Fall Interventions: LOW INTERVENTIONS: *patient oriented to [...] 16-Dec-2021 22:43 by Denisse Nelson (ISAI) Normal [facility] UA MICROSCOPICon 12-17-2021 BACTERIA 1+ /HPF Abnormal [facility] Comment on above: Performed By: #### U AMIC #### [facility] [address] [place] [address] Mucus Ql (Urine sed) 4+ /LPF Normal Jan[facility]z [facility] Comment on above: Performed By: #### U AMIC #### [address] [address] RBC 2 /HPF Normal 0-5 [facility] Comment on above: Performed By: #### U AMIC #### [address] [address] SQUAMOUS EPITH. CELLS 2 /HPF Normal [facility] Comment on above: Performed By: #### U AMIC #### [address] [address] WBC 11 /HPF Abnormal 0-5 [facility] Comment on above: Performed By: #### U AMIC #### [address] [address] URINALYSISon 12-17-2021 Appearance (U) Hazy Normal CLEAR [facility] or [facility] Comment on above: Performed By: #### U A #### [address] [address] Bilirubin Ql (U) Negative Normal NEGATIVE [facility] Comment on above: Performed By: #### U A #### [address] [address] Color (U) Yellow Normal STRAW,YELLOW [place] Comment on above: Performed By: #### U A #### [address] [address] Glucose Ql (U) Negative Normal NEGATIVE [facility] Comment on above: Performed By: #### U A #### [address] [address] Hemoglobin Ql (U) Negative Normal NEGATIVE [facility] Comment on above: Performed By: #### U A #### [address] [address] Ketones Ql (U) Negative Normal NEGATIVE [place]/[facility] or [facility] Comment on above: Performed By: #### U A #### [address] [address] Leukocyte esterase Test strip Ql (U) Trace Abnormal NEGATIVE [place] Comment on above: Performed By: #### U A #### [address] [address] Nitrite Ql (U) Negative Normal NEGATIVE [facility] Comment on above: Performed By: #### U A #### [address] [address] pH (U) 5.0 [pH] Normal 5.0 - 8.0 [facility] Comment on above: Performed By: #### U A #### [address] [address] Protein Ql (U) Negative Normal NEGATIVE [facility] Comment on above: Performed By: #### U A #### [place] [address] Specific gravity (U) [Rel density] 1.013 Normal 1.005 - 1.035 [facility] Comment on above: Performed By: #### U A #### [place] [id number] Urobilinogen (U) [Mass/Vol] mg/dL Normal 0.0 - 1.9 [facility] Comment on above: Performed By: #### U A #### [address] [address] URINE CULTURE,BACTERIALon URINE CULTURE,BACTERIAL PATIENT: TRAVON STALLWORTH LOCATION: [facility]#: [id number] : 1 AGE: SEX: F ORDERED BY: CHRIS LUKE SOURCE: URINE COLLECTED: 12/16/21 22:57 ANTIBIOTICS AT [facility].: RECEIVED : 12/18/21 02:49 SITE: R E S U L T S URINE CULTURE,BACTERIAL FINAL 12/19/21 08:42 NO SIGNIFICANT GROWTH. Normal [facility] Comment on above: Performed By: #### U RINC #### [facility] [address] [place] [address] CBC AUTO DIFFon 09-13-2018 Basophils (Bld) [#/Vol] 0.1 103/ul Normal 0.0-0.1 [facility] Comment on above: Performed By: #### C BC #### [facility] [address] [place], [place] [address] Silvia Jen Basophils/100 WBC (Bld) 1.1 % Normal 0.2-2.0 [facility] Comment on above: Performed By: #### C BC #### [facility] [address] [place], [place] [address] Silvia Jen Eosinophils (Bld) [#/Vol] 0.2 103/ul Normal 0.0-0.7 [facility] Comment on above: Performed By: #### C BC #### [facility] [address] [place] [address] Silvia Jen Eosinophils/100 WBC (Bld) 2.6 % Normal 0.9-7.0 [facility] Comment on above: Performed By: #### C BC #### [facility] [address] [place] [address] Silvia Jen Erythrocyte distribution width (RBC) [Ratio] 12.9 % Normal 11.0-15.0 [facility] Comment on above: Performed By: #### C BC #### [facility] [address] [place] [address] Silvia Jen Hematocrit (Bld) [Volume fraction] 43.7 % Normal 36.0-48.0 [facility] Comment on above: Performed By: #### C BC #### [facility] [address] [place] [address] Silvia Jen Hemoglobin (Bld) [Mass/Vol] 14.2 g/dL Normal 12.0-16.0 [facility] Comment on above: Performed By: #### C BC #### [facility] [address] [place] [address] Silvia Jen IG # 0.02 10e3/ul Normal 0.00-0.03 [facility] Comment on above: Performed By: #### C BC #### [facility] [address] [place] [address] Silvia Jen IG % 0.3 % Normal 0.0-0.5 [facility] Comment on above: Performed By: #### C BC #### [facility] [address] [place], [place] [address] Silvia Jen Lymphocytes (Bld) [#/Vol] 2.0 103/ul Normal 1.2-3.8 [facility] Comment on above: Performed By: #### C BC #### [facility] [address] [place], [place] [address] Silvia Jen Lymphocytes/100 WBC (Bld) 25.4 % Normal 20.5-60.0 [facility] Comment on above: Performed By: #### C BC #### [facility] [address] [place], [place] [address] Silvia Jen MANUAL DIFF REQ NO Normal [facility] Comment on above: Performed By: #### C BC #### [facility] [address] [place], [place] [address] Silvia Jen MCH (RBC) [Entitic mass] 28.0 pg Normal 26.7-34.0 [facility] Comment on above: Performed By: #### C BC #### [facility] [address] [place], [place] [address] Silvia Jen MCHC (RBC) [Mass/Vol] 32.5 g/dL Normal 29.9-35.2 [facility] Comment on above: Performed By: #### C BC #### [facility] [address] [place], [place] [address] Silvia Jen MCV (RBC) [Entitic vol] 86.0 fL Normal 79.1-95.6 [facility] Comment on above: Performed By: #### C BC #### [facility] [address] [place], [place] [address] Silvia Jen Monocytes (Bld) [#/Vol] 0.5 103/ul Normal 0.3-0.8 [facility] Comment on above: Performed By: #### C BC #### [facility] [address] [place], [place] [address] Silvia Jen Monocytes/100 WBC (Bld) 6.6 % Normal 1.7-12.0 [facility] Comment on above: Performed By: #### C BC #### [facility] [address] [place], [place] [address] Silvia Jen Neutrophils (Bld) [#/Vol] 5.0 103/ul Normal 1.4-6.5 [facility] Comment on above: Performed By: #### C BC #### [facility] [address] [place], [place] [address] Silvia Jen Neutrophils/100 WBC (Bld) 64.0 % Normal 43.0-75.0 [facility] Comment on above: Performed By: #### C BC #### [facility] [address] [place] [address] Silvia Jen Platelet mean volume (Bld) [Entitic vol] 9.6 fL Normal 9.5-13.5 [facility] Comment on above: Performed By: #### C BC #### [facility] [address] [place], [place] [address] Silvia Jen Platelets (Bld) [#/Vol] 332 103/ul Normal 150-450 [facility] Comment on above: Performed By: #### C BC #### [facility] [address] [place] [address] Silvia Jen RBC (Bld) [#/Vol] 5.08 106/ul Normal 3.40-5.30 [facility] Comment on above: Performed By: #### C BC #### [facility] [address] [place], [place] [address] Silvia Jen WBC (Bld) [#/Vol] 7.8 103/ul Normal 4.0-11.0 [facility] Comment on above: Performed By: #### C BC #### [facility] [address] [place] [address] Silvia Li DRUG SCREEN RAPID (URINE)on 09-13-2018 AMP Negative Normal NEGATIVE [facility] Comment on above: Performed By: #### D RUGRPD #### [facility] [address] [place], [place] [address] Silvia Jen BAR Negative Normal NEGATIVE [facility] Comment on above: Performed By: #### D RUGRPD #### [facility] [address] [place] [address] Silvia Jen BUP Negative Normal NEGATIVE [facility] Comment on above: Performed By: #### D RUGRPD #### [facility] [address] [place] [address] Silvia Jen BZO Negative Normal NEGATIVE [facility] Comment on above: Performed By: #### D RUGRPD #### [facility] [address] [place] [address] Silvia Jen ESTRELLA Negative Normal NEGATIVE [facility] Comment on above: Performed By: #### D RUGRPD #### [facility] [address] [place] [address] Silvia Jen CUT-OFFS SEE BELOW Normal [facility] Comment on above: Result Comment: AMP [...] ng/mL Performed By: #### D RUGRPD #### [facility] [address] [place] [address] Silvia Jen DRUG CUT HEADER DRUG CLASS TEST SYST EM CUT-OFF CONCENTRATIONS ARE FOLLOWS: Normal [facility] Comment on above: Performed By: #### D RUGRPD #### [facility] [address] [place] [address] Silvia Jen mAMP Negative Normal NEGATIVE [facility] Comment on above: Performed By: #### D RUGRPD #### [facility] [address] [place], [place] [address] Silvia Jen MTD Negative Normal NEGATIVE [facility] Comment on above: Performed By: #### D RUGRPD #### [facility] [address] [place], [place] [address] Silvia Jen OPI Negative Normal NEGATIVE [facility] Comment on above: Performed By: #### D RUGRPD #### [facility] [address] [place] [address] Silvia Jen OXY Negative Normal NEGATIVE [facility] Comment on above: Performed By: #### D RUGRPD #### [facility] [address] [place] [address] Silvia Jen PCP Negative Normal NEGATIVE [facility] Comment on above: Performed By: #### D RUGRPD #### [facility] [address] [place] [address] Silvia Jen PPX Negative Normal NEGATIVE [facility] Comment on above: Performed By: #### D RUGRPD #### [facility] [address] [place] [address] Silvia Jen TCA Negative Normal NEGATIVE [facility] Comment on above: Performed By: #### D RUGRPD #### [facility] [address] [place], [place] [address] Silvia Jen THC Negative Normal NEGATIVE [facility] Comment on above: Performed By: #### D RUGRPD #### [facility] [address] [place], [place] [address] Silvia Jen MAGNESIUMon 09-13-2018 Magnesium [Mass/Vol] 1.9 mg/dL Normal 1.6-2.3 [facility] Comment on above: Performed By: #### C MP #### [facility] [address] [place] [address] Silvia Jen PHOSPHORUSon 09-13-2018 Phosphate [Mass/Vol] 4.4 mg/dL Normal 2.5-4.5 [facility] Comment on above: Performed By: #### C MP #### [facility] [address] [place] [address] Silvia Jen PREALBUMINon 09-13-2018 Prealbumin [Mass/Vol] 36.3 mg/dL Critically high 12.8-34.2 [facility] Comment on above: Performed By: #### C MP #### [facility] [address] [place], [place] [address] Silviayvan Li URon 09-13-2018 , QUAL Negative Normal NEGATIVE [facility] Comment on above: Performed By: #### P REGU #### [facility] [address] [place] [id number] Silvia Li PROF 14(COMP METB)on 019 Albumin [Mass/Vol] 4.7 g/dL Normal 3.5-5.0 [facility] Comment on above: Performed By: #### C MP #### [facility] [address] [place], [place] [address] Silviayvan Li Albumin/Globulin [Mass ratio] 1.3 {ratio} Normal [facility] Comment on above: Performed By: #### C MP #### [facility] [address] [place] [address] Silvia Jen ALP [Catalytic activity/Vol] 85 U/L Critically low 130-525 [facility] Comment on above: Performed By: #### C MP #### [facility] [address] [place], [place] [address] Silvia Jen ALT [Catalytic activity/Vol] 21 U/L Normal 9-52 [facility] Comment on above: Performed By: #### C MP #### [facility] [address] [place], [place] [address] Silvia Jen Anion gap [Moles/Vol] 11.4 mmol/L Normal [facility] Comment on above: Performed By: #### C MP #### [facility] [address] [place], [place] [address] Silviayvan Li AST [Catalytic activity/Vol] 17 U/L Normal 14-36 [facility] Comment on above: Performed By: #### C MP #### [facility] [address] [place], [place] [address] Silvia Jen Bilirubin Ql (U) 0.7 mg/dL Normal 0.2-1.3 [facility] Comment on above: Performed By: #### C MP #### [facility] [address] [place], [place] [address] Silvia Jen Calcium [Mass/Vol] 9.8 mg/dL Normal 8.4-10.2 [facility] Comment on above: Performed By: #### C MP #### [facility] [address] [place] [id number] Silvia Jen Chloride [Moles/Vol] 100 mmol/L Normal 98-107 [facility] Comment on above: Performed By: #### C MP #### [facility] [address] [place] [id number] Silvia Jen CO2 [Moles/Vol] 29.8 mmol/L Normal 22.0-30.0 [facility] Comment on above: Performed By: #### C MP #### [facility] [address] [place] [address] Siliva Jen Creatinine [Mass/Vol] 0.94 mg/dL Normal 0.52-1.04 [facility] Comment on above: Performed By: #### C MP #### [facility] [address] [place] [id number] Silvia Jen Globulin (S) [Mass/Vol] 3.5 g/dL Normal [facility] Comment on above: Performed By: #### C MP #### [facility] [address] [place] [id number] Silvia Jen Glucose [Mass/Vol] 93 mg/dL Normal 74-106 [facility] Comment on above: Performed By: #### C MP #### [facility] [address] [place] [address] Silvia Jen Potassium [Moles/Vol] 4.2 mmol/L Normal 3.4-5.0 [facility] Comment on above: Performed By: #### C MP #### [facility] [address] [place] [id number] Silvia Jen Protein [Mass/Vol] 8.2 g/dL Normal 6.1-8.2 [facility] Comment on above: Performed By: #### C MP #### [facility] [address] [place] [address] Silvia Jen Sodium [Moles/Vol] 137 mmol/L Normal 137-145 [facility] Comment on above: Performed By: #### C MP #### [facility] [address] [place] [address] Silvia Jen Urea nitrogen [Mass/Vol] 14.0 mg/dL Normal 6.4-19.3 [facility] Comment on above: Performed By: #### C MP #### [facility] [address] [place] [address] Silvia Jen Urea nitrogen/Creatinine [Mass ratio] 14.9 mg/mg Normal [facility] Comment on above: Performed By: #### C MP #### [facility] [address] [place] [address] Silvia Jen TSHon 09-13-2018 TSH Qn SEE BELOW Normal [facility] Comment on above: Result Comment: <0.3 4 UIU/ml HYPERTHYROID 0.34-5.60 UIU/ml EUTHYROID >5.60 UIU/ml HYPOTHYROID Performed By: #### C MP #### [facility] [address] [place] [address] Silvia Jen TSH Qn 2.987 uIU/mL Normal 0.580-5.600 [facility] Comment on above: Performed By: #### C MP #### [facility] [address] [place], [place] [address] Silvia Jen UA RANDOMon 09-13-2018 Bilirubin [Mass/Vol] Negative Normal NEGATIVE [facility] Comment on above: Performed By: #### U A #### [facility] [address] [place] [address] Silvia Jen BLOOD Negative Normal NEGATIVE [facility] Comment on above: Performed By: #### U A #### [facility] [address] [place] [address] Silvia Jen Clarity (U) CLEAR Normal [facility] Comment on above: Performed By: #### U A #### [facility] [address] [place], [place] [address] Silvia Jen Color (U) LT. YELLOW Normal YELLOW [facility] Comment on above: Performed By: #### U A #### [facility] [address] [place], [place] [address] Silvia Jen Glucose [Mass/Vol] Negative Normal NEGATIVE [facility] Comment on above: Performed By: #### U A #### [facility] [address] [place], [place] [address] Silvia Jen Ketones Ql (U) Negative Normal NEGATIVE [facility] Comment on above: Performed By: #### U A #### [facility] [address] [place], [place] [address] Silvia Jen Nitrite Ql (U) Negative Normal NEGATIVE [facility] Comment on above: Performed By: #### U A #### [facility] [address] [place], [place] [address] Silvia Jen pH (Bld) 6.0 Normal 5-9 [facility] Comment on above: Performed By: #### U A #### [facility] [address] [place], [place] [address] Silvia Jen Protein [Mass/Vol] Negative Normal [facility] Comment on above: Performed By: #### U A #### [facility] [address] [place], [place] [id number] iSlvia Li SPEC GRAVITY 1.025 Normal 1.005-<=1.02 5 [facility] Comment on above: Performed By: #### U A #### [facility] [address] [place], [place] [id number] Silviayvan Li Urobilinogen Qn (U) 0.2 EU/dl Normal [facility] Comment on above: Performed By: #### U A #### [facility] [address] [place], [place] [id number] Silvia Jen WBC (Bld) [#/Vol] Negative Normal NEGATIVE [facility] Comment on above: Performed By: #### U A #### [facility] [address] [place], [place] [id number] Silvia Jen VIT B12 AND FOLATEon 019 Cobalamin (Vitamin B12) [Mass/Vol] 737.0 pg/mL Normal 239.0-931.0 [facility] Comment on above: Performed By: #### C MP #### [facility] [address] [place] [address] Silvia Li FOLATE 19.50 ng/mL Normal >=2.76 [facility] Comment on above: Performed By: #### C MP #### [facility] [address] [place] [address] Silvia Li VITAMIN D 25 OHon 09-13-2018 VIT D 25-OH 27.1 ng/mL Normal [facility] Comment on above: Performed By: #### C MP #### [facility] [address] [place] [address] Silviayvan Li VIT D RANGES SEE BELOW Normal [facility] Comment on above: Result Comment: <20 ng/mL Vit D deficient 20 - <30 ng/mL Vit D insufficient 30 - 100 ng/mL Vit D sufficient >100 ng/mL Potential Toxicity Performed By: #### C MP #### [facility] [address] [place] [address] Silvia Jen VITDH PLEASE NOTE: NORMAL RANGE CHANGE 12-27-2012, TESTING PERFORMED AT [facility]. Normal [facility] Comment on above: Performed By: #### C MP #### [facility] [address] [place] [address] Silvia Li ACETAMINOPHENon 08-15-2018 Acetaminophen [Mass/Vol] <1.0 Critically low 10.1-30.0 [facility] Comment on above: Performed By: #### A CET #### [facility] [address] [place] [address] Silvia Jen CBC AUTO DIFFon 08-15-2018 Basophils (Bld) [#/Vol] 0.1 103/ul Normal 0.0-0.1 [facility] Comment on above: Performed By: #### C BC #### [facility] [address] [place] [address] Silviayvan Li Basophils/100 WBC (Bld) 0.9 % Normal 0.2-2.0 [facility] Comment on above: Performed By: #### C BC #### [facility] [address] [id number] Silvia Jen Eosinophils (Bld) [#/Vol] 0.2 103/ul Normal 0.0-0.7 [facility] Comment on above: Performed By: #### C BC #### [facility] [address] [place], [place] [id number] Silvia Jen Eosinophils/100 WBC (Bld) 2.9 % Normal 0.9-7.0 [facility] Comment on above: Performed By: #### C BC #### [facility] [address] [place] [address] Silvia Jen Erythrocyte distribution width (RBC) [Ratio] 13.0 % Normal 11.0-15.0 [facility] Comment on above: Performed By: #### C BC #### [facility] [address] [place] [address] Silvia Jen Hematocrit (Bld) [Volume fraction] 44.1 % Normal 36.0-48.0 [facility] Comment on above: Performed By: #### C BC #### [facility] [address] [place], [place] [phone] Silvia Jen Hemoglobin (Bld) [Mass/Vol] 14.3 g/dL Normal 12.0-16.0 [facility] Comment on above: Performed By: #### C BC #### [facility] [address] [place] [address] Silvia Jen IG # 0.01 10e3/ul Normal 0.00-0.03 [facility] Comment on above: Performed By: #### C BC #### [facility] [address] [place] [address] Silvia Jen IG % 0.1 % Normal 0.0-0.5 [facility] Comment on above: Performed By: #### C BC #### [facility] [address] [place] [address] Silvia Jen Lymphocytes (Bld) [#/Vol] 2.3 103/ul Normal 1.2-3.8 [facility] Comment on above: Performed By: #### C BC #### [facility] [address] [place], [place] [address] Silvia Jen Lymphocytes/100 WBC (Bld) 28.9 % Normal 20.5-60.0 [facility] Comment on above: Performed By: #### C BC #### [facility] [address] [place], [place] [address] Silvia Jen MANUAL DIFF REQ NO Normal [facility] Comment on above: Performed By: #### C BC #### [facility] [address] [place], [place] [address] Silvia Jen MCH (RBC) [Entitic mass] 28.0 pg Normal 26.7-34.0 [facility] Comment on above: Performed By: #### C BC #### [facility] [address] [place] [address] Silvia Jen MCHC (RBC) [Mass/Vol] 32.4 g/dL Normal 29.9-35.2 [facility] Comment on above: Performed By: #### C BC #### [facility] [address] [place] [address] Silvia Jen MCV (RBC) [Entitic vol] 86.5 fL Normal 79.1-95.6 [facility] Comment on above: Performed By: #### C BC #### [facility] [address] [place] [address] Silvia Jen Monocytes (Bld) [#/Vol] 0.4 103/ul Normal 0.3-0.8 [facility] Comment on above: Performed By: #### C BC #### [facility] [address] [place] [address] Silvia Jen Monocytes/100 WBC (Bld) 5.6 % Normal 1.7-12.0 [facility] Comment on above: Performed By: #### C BC #### [facility] [address] [place] [address] Silvia Jen Neutrophils (Bld) [#/Vol] 4.8 103/ul Normal 1.4-6.5 [facility] Comment on above: Performed By: #### C BC #### [facility] [address] [place], [place] [address] Silvia Jen Neutrophils/100 WBC (Bld) 61.6 % Normal 43.0-75.0 [facility] Comment on above: Performed By: #### C BC #### [facility] [address] [place], [place] [address] Silvia Jen Platelet mean volume (Bld) [Entitic vol] 9.9 fL Normal 9.5-13.5 [facility] Comment on above: Performed By: #### C BC #### [facility] [address] [id number] Silvia Jen Platelets (Bld) [#/Vol] 262 103/ul Normal 150-450 [facility] Comment on above: Performed By: #### C BC #### [facility] [address] [place], [place] [id number] Silvia Jen RBC (Bld) [#/Vol] 5.10 106/ul Normal 3.40-5.30 [facility] Comment on above: Performed By: #### C BC #### [facility] [address] [id number] Silvia Jen WBC (Bld) [#/Vol] 7.8 103/ul Normal 4.0-11.0 [facility] Comment on above: Performed By: #### C BC #### [facility] [address] [place], [place] [id number] Silvia Jen DRUG SCREEN RAPID (URINE)on 08-15-2018 AMP Negative Normal NEGATIVE [facility] Comment on above: Performed By: #### D RUGRPD #### [facility] [address] [id number] Silvia Jen BAR Negative Normal NEGATIVE [facility] Comment on above: Performed By: #### D RUGRPD #### [facility] [address] [place], [place] [id number] Silvia Jen BUP Negative Normal NEGATIVE [facility] Comment on above: Performed By: #### D RUGRPD #### [facility] [address] [address] Silvia Jen BZO Negative Normal NEGATIVE [facility] Comment on above: Performed By: #### D RUGRPD #### [facility] [address] [place] [address] Silvia Jen ESTRELLA Negative Normal NEGATIVE [facility] Comment on above: Performed By: #### D RUGRPD #### [facility] [address] [place] [address] Silviayvan Li CUT-OFFS SEE BELOW Normal [facility] Comment on above: Result Comment: AMP (Amphetamine): [...] ng/mL Performed By: #### D RUGRPD #### [facility] [address] [place] [address] [facility] TEST SYST EM CUT-OFF CONCENTRATIONS ARE FOLLOWS: Normal [facility] Comment on above: Performed By: #### D RUGRPD #### [facility] [address] [place] [address] Silvia Jen mAMP Negative Normal NEGATIVE [facility] Comment on above: Performed By: #### D RUGRPD #### [facility] [address] [place] [address] Silvia Jen MTD Negative Normal NEGATIVE [facility] Comment on above: Performed By: #### D RUGRPD #### [facility] [address] [place] [address] Silvia Jen OPI Negative Normal NEGATIVE [facility] Comment on above: Performed By: #### D RUGRPD #### [facility] [address] [id number] Silvia Jen OXY Negative Normal NEGATIVE [facility] Comment on above: Performed By: #### D RUGRPD #### [facility] [address] [phone] Silvia Jen PCP Negative Normal NEGATIVE [facility] Comment on above: Performed By: #### D RUGRPD #### [facility] [address] [place], [place] [address] Silvia Jen PPX Negative Normal NEGATIVE [facility] Comment on above: Performed By: #### D RUGRPD #### [facility] [address] [place], [place] [address] Silvia Jen TCA Negative Normal NEGATIVE [facility] Comment on above: Performed By: #### D RUGRPD #### [facility] [address] [place] [address] Silvia Jen THC Negative Normal NEGATIVE [facility] Comment on above: Performed By: #### D RUGRPD #### [facility] [address] [place] [address] Silviayvan Li URon 08-15-2018 , QUAL Negative Normal NEGATIVE [facility] Comment on above: Performed By: #### P REGU #### [facility] [address] [place] [address] Silvia Li PROF 14(COMP METB)on 019 Albumin [Mass/Vol] 5.0 g/dL Normal 3.5-5.0 [facility] Comment on above: Performed By: #### C MP #### [facility] [address] [place], [place] [address] Silvia Jen Albumin/Globulin [Mass ratio] 1.7 {ratio} Normal [facility] Comment on above: Performed By: #### C MP #### [facility] [address] [place] [address] Silvia Jen ALP [Catalytic activity/Vol] 108 U/L Critically low 130-525 [facility] Comment on above: Performed By: #### C MP #### [facility] [address] [place] [address] Silvia Jen ALT [Catalytic activity/Vol] 21 U/L Normal 9-52 [facility] Comment on above: Performed By: #### C MP #### [facility] [address] [id number] Silvia Jen Anion gap [Moles/Vol] 11.1 mmol/L Normal Th e [facility] Comment on above: Performed By: #### C MP #### [facility] [address] [address] Silvia Jen AST [Catalytic activity/Vol] 16 U/L Normal 14-36 [facility] Comment on above: Performed By: #### C MP #### [facility] [address] [address] Silvia Jen Bilirubin Ql (U) 0.3 mg/dL Normal 0.2-1.3 [facility] Comment on above: Performed By: #### C MP #### [facility] [address] [place] [address] Silvia Jen Calcium [Mass/Vol] 9.7 mg/dL Normal 8.4-10.2 [facility] Comment on above: Performed By: #### C MP #### [facility] [address] [place] [address] Silvia Jen Chloride [Moles/Vol] 102 mmol/L Normal 98-107 [facility] Comment on above: Performed By: #### C MP #### [facility] [address] [place] [address] Silvia Jen CO2 [Moles/Vol] 29.4 mmol/L Normal 22.0-30.0 [facility] Comment on above: Performed By: #### C MP #### [facility] [address] [place], [place] [address] Silvia Jen Creatinine [Mass/Vol] 1.05 mg/dL Critically high 0.52-1.04 [facility] Comment on above: Performed By: #### C MP #### [facility] [address] [place], [place] [address] Silvia Jen Globulin (S) [Mass/Vol] 3.0 g/dL Normal [facility] Comment on above: Performed By: #### C MP #### [facility] [address] [phone] Silvia Jen Glucose [Mass/Vol] 103 mg/dL Normal 74-106 [facility] Comment on above: Performed By: #### C MP #### [facility] [address] [phone] Silvia Jen Potassium [Moles/Vol] 3.5 mmol/L Normal 3.4-5.0 [facility] Comment on above: Performed By: #### C MP #### [facility] [address] [phone] Silvia Jen Protein [Mass/Vol] 8.0 g/dL Normal 6.1-8.2 [facility] Comment on above: Performed By: #### C MP #### [facility] [address] [address] Silvia Jen Sodium [Moles/Vol] 139 mmol/L Normal 137-145 [facility] Comment on above: Performed By: #### C MP #### [facility] [address] [phone] Silvia Jen Urea nitrogen [Mass/Vol] 21.0 mg/dL Critically high 6.4-19.3 [facility] Comment on above: Performed By: #### C MP #### [facility] [address] [phone] Silvia Jen Urea nitrogen/Creatinine [Mass ratio] 20.0 mg/mg Normal [facility] Comment on above: Performed By: #### C MP #### [facility] [address] [place], [place] [address] Silvia Jen SALICYLATEon 08-15-2018 SALICYLATE 0.7 mg/dL Normal <=20.0 [facility] Comment on above: Performed By: #### S ALYC #### [facility] [address] [place], [place] [address] Silvia Jen Vital Signs Date Time Vital Sign Value Performing Clinician Sabina ash 01-08-2025 10:51-0400 Body mass index (BMI) [Ratio] 23.72 kg/m2 Antionette Benitez DO Work Phone: [facility] 01-08-2025 10:51-0400 Body temperature 98.1 [degF] Antionette Benitez DO Work Phone: [facility] 01-08-2025 10:51-0400 Body weight 72.9 kg Antionette Benitez DO Work Phone: [facility] 01-08-2025 10:51-0400 Diastolic blood pressure 79 mm[Hg] Antionette Benitez DO Work Phone: [facility] 01-08-2025 10:51-0400 Heart rate 75 /min Antionette Benitez DO Work Phone: [facility] 01-08-2025 10:51-0400 SaO2% (BldA) [Mass fraction] 99 % Antionette Benitez DO Work Phone: [facility] 01-08-2025 10:51-0400 Systolic blood pressure 114 mm[Hg] Antionette Benitez DO Work Phone: [facility] 12-26-2024 15:24-0400 Body temperature 98.2 [degF] Sirilak Ham [employer] Work Phone: [facility] 12-26-2024 15:24-0400 Diastolic blood pressure 114 mm[Hg] Sirilak Ham [employer] Work Phone: [facility] 12-26-2024 15:24-0400 Heart rate 117 /min Sirilak Ham [employer] Work Phone: [facility] 12-26-2024 15:24-0400 Respiratory rate 17 /min Sirilak Ham [employer] Work Phone: [facility] 12-26-2024 15:24-0400 SaO2% (BldA) [Mass fraction] 98 % Sirilak Ham [employer] Work Phone: [facility] 12-26-2024 15:24-0400 Systolic blood pressure 159 mm[Hg] Samir Saunders [employer] Work Phone: [facility] 12-04-2024 16:37-0400 Body temperature 97.39 [degF] Muhamjenae Jusran [employer] Work Phone: [facility] 12-04-2024 16:37-0400 Diastolic blood pressure 76 mm[Hg] Muhamad Jusran [employer] Work Phone: [facility] 12-04-2024 16:37-0400 Heart rate 68 /min Muhamad Jusran [employer] Work Phone: [facility] 12-04-2024 16:37-0400 Respiratory rate 16 /min Muhamad Jusran [employer] Work Phone: [facility] 12-04-2024 16:37-0400 SaO2% (BldA) [Mass fraction] 99 % Muhamad Jusran [employer] Work Phone: [facility] 12-04-2024 16:37-0400 Systolic blood pressure 106 mm[Hg] Muhamad Jusran [employer] Work Phone: [facility] 10-28-2024 09:140400 Body height 175.26 cm [facility] 10-28-2024 09:14-0400 Body mass index (BMI) [Ratio] 23.1 kg/m2 [facility] 10-28-2024 09:14-0400 Body temperature 97.6 [degF] [facility] 10-28-2024 09:14-0400 Body weight 70.98 kg [facility] 10-28-2024 09:14-0400 Diastolic blood pressure 78 mm[Hg] [facility] 10-28-2024 09:14-0400 Heart rate 83 /min [facility] 10-28-2024 09:14-0400 Respiratory rate 18 /min [facility] 10-28-2024 09:14-0400 SaO2% (BldA) [Mass fraction] 98 % [facility] 10-28-2024 09:14-0400 Systolic blood pressure 118 mm[Hg] [facility] 10-25-2024 09:20-0400 Body temperature 98.8 [degF] Sadie Lombardo [employer] Work Phone: [facility] 10-25-2024 09:20-0400 Diastolic blood pressure 92 mm[Hg] Sadie Lombardo [employer] Work Phone: [facility] 10-25-2024 09:20-0400 Heart rate 85 /min Sadie Lombardo [employer] Work Phone: [facility] 10-25-2024 09:20-0400 Respiratory rate 18 /min Sadie Lombardo [employer] Work Phone: [facility] 10-25-2024 09:20-0400 SaO2% (BldA) [Mass fraction] 99 % Sadie Lombardo [employer] Work Phone: [facility] 10-25-2024 09:20-0400 Systolic blood pressure 136 mm[Hg] Sadie Lombardo [employer] Work Phone: [facility] 10-24-2024 13:54-0400 Body height 173.4 cm Tanvi Sommer MD Work Phone: [facility] 10-24-2024 13:54-0400 Body mass index (BMI) [Ratio] 23.65 kg/m2 Tanvi Sommer MD Work Phone: [facility] 10-24-2024 13:54-0400 Body weight 71.12 kg Tanvi Sommer MD Work Phone: [facility] 10-24-2024 13:54-0400 Diastolic blood pressure 78 mm[Hg] Tanvi Sommer MD Work Phone: [facility] 10-24-2024 13:54-0400 Systolic blood pressure 133 mm[Hg] Tanvi Sommer MD Work Phone: [facility] 10-24-2024 08:51-0400 Body temperature 98.6 [degF] Fabby Anupam PA-C Work Phone: [facility] 10-24-2024 08:51-0400 Diastolic blood pressure 82 mm[Hg] Fabby Anupam PA-C Work Phone: [facility] 10-24-2024 08:51-0400 Heart rate 76 /min Fabby Anupam PA-C Work Phone: [facility] 10-24-2024 08:51-0400 Respiratory rate 16 /min Fabby Anupam PA-C Work Phone: [facility] 10-24-2024 08:51-0400 SaO2% (BldA) [Mass fraction] 98 % Fabby Anupam PA-C Work Phone: [facility] 10-24-2024 08:51-0400 Systolic blood pressure 133 mm[Hg] Fabby Anupam PA-C Work Phone: [facility] 09-21-2024 08:51-0400 Body temperature 98.29 [degF] Fabby Anupam PA-C Work Phone: [facility] 09-21-2024 08:51-0400 Diastolic blood pressure 83 mm[Hg] Fabby Anupam PA-C Work Phone: [facility] 09-21-2024 08:51-0400 Heart rate 69 /min Fabby Anupam PA-C Work Phone: [facility] 09-21-2024 08:51-0400 Respiratory rate 16 /min Fabby Anupam PA-C Work Phone: [facility] 09-21-2024 08:51-0400 SaO2% (BldA) [Mass fraction] 98 % Fabby Anupam PA-C Work Phone: [facility] 09-21-2024 08:51-0400 Systolic blood pressure 127 mm[Hg] Fabby Bo PA-C Work Phone: [facility] 08-29-2024 11:59-0400 Diastolic blood pressure 70 mm[Hg] Antionette Benitez DO Work Phone: [facility] 08-29-2024 11:59-0400 Systolic blood pressure 120 mm[Hg] Antionette Benitez DO Work Phone: [facility] 08-29-2024 11:26-0400 Body height 175.3 cm Antionette Benitez DO Work Phone: [facility] 08-29-2024 11:26-0400 Body mass index (BMI) [Ratio] 22.88 kg/m2 Antionette Benitez DO Work Phone: [facility] 08-29-2024 11:26-0400 Body temperature 99.1 [degF] Antionette Benitez DO Work Phone: [facility] 08-29-2024 11:26-0400 Body weight 70.3 kg Antionette Benitez DO Work Phone: [facility] 08-29-2024 11:26-0400 Heart rate 88 /min Antionette Benitez DO Work Phone: [facility] 08-29-2024 11:26-0400 SaO2% (BldA) [Mass fraction] 100 % Antionette Benitez DO Work Phone: [facility] 08-22-2024 18:26-0400 Body height 175.26 cm Fransicoopher Nicki DO Work Phone: [facility] 08-22-2024 18:26-0400 Body mass index (BMI) [Ratio] 22.6 kg/m2 Christopher Nicki DO Work Phone: [facility] 08-22-2024 18:26-0400 Body temperature 99.6 [degF] Christopher Nicki DO Work Phone: [facility] 08-22-2024 18:26-0400 Body weight 69.39 kg Christopher Nicki DO Work Phone: [facility] 08-22-2024 18:26-0400 Diastolic blood pressure 92 mm[Hg] Christopher Nicki DO Work Phone: [facility] 08-22-2024 18:26-0400 Heart rate 88 /min Christopher Nicki DO Work Phone: [facility] 08-22-2024 18:26-0400 Respiratory rate 14 /min Christopher Nicki DO Work Phone: [facility] 08-22-2024 18:26-0400 SaO2% (BldA) [Mass fraction] 97 % Christopher Nicki DO Work Phone: [facility] 08-22-2024 18:26-0400 Systolic blood pressure 139 mm[Hg] Christopher Nicki DO Work Phone: [facility] 08-12-2024 09:21-0400 Body height 175.3 cm Tania Youngblood PA Work Phone: [facility] 08-12-2024 09:21-0400 Body mass index (BMI) [Ratio] 22.59 kg/m2 Tania Youngblood PA Work Phone: [facility] 08-12-2024 09:21-0400 Body weight 69.4 kg Tania Youngblood PA Work Phone: [facility] 08-12-2024 09:21-0400 Diastolic blood pressure 82 mm[Hg] Tania Youngblood PA Work Phone: [facility] 08-12-2024 09:21-0400 Heart rate 71 /min Tania Youngblood PA Work Phone: [facility] 08-12-2024 09:21-0400 Respiratory rate 16 /min aTnia Youngblood PA Work Phone: [facility] 08-12-2024 09:21-0400 SaO2% (BldA) [Mass fraction] 99 % Tania CLEMENTE Work Phone: [facility] 08-12-2024 09:21-0400 Systolic blood pressure 122 mm[Hg] Tania CLEMENTE Work Phone: [facility] 07-08-2024 15:45-0400 Body mass index (BMI) [Ratio] 21.44 kg/m2 Antionette Benitez DO Work Phone: [facility] 07-08-2024 15:45-0400 Body temperature 98.71 [degF] Antionette Benitez DO Work Phone: [facility] 07-08-2024 15:45-0400 Body weight 65.9 kg Antionette Benitez DO Work Phone: [facility] 07-08-2024 15:45-0400 Diastolic blood pressure 92 mm[Hg] Antionette Benitez DO Work Phone: [facility] 07-08-2024 15:45-0400 Heart rate 68 /min Antionette Benitez DO Work Phone: [facility] 07-08-2024 15:45-0400 SaO2% (BldA) [Mass fraction] 100 % Antionette Benitez DO Work Phone: [facility] 07-08-2024 15:45-0400 Systolic blood pressure 137 mm[Hg] Antionette Benitez DO Work Phone: [facility] 06-19-2024 08:34-0500 Body height 173.4 cm Ian Vasquez MD Work Phone: [facility] 06-19-2024 08:34-0500 Body mass index (BMI) [Ratio] 23 kg/m2 Ian Vasquez MD Work Phone: [facility] 06-19-2024 08:34-0500 Body weight 69.13 kg Ian Vasquez MD Work Phone: [facility] 06-19-2024 08:34-0500 Diastolic blood pressure 82 mm[Hg] Ian Vasquez MD Work Phone: [facility] 06-19-2024 08:34-0500 Heart rate 80 /min Ian Vasquez MD Work Phone: [facility] 06-19-2024 08:34-0500 SaO2% (BldA) [Mass fraction] 97 % Ian Vasquez MD Work Phone: [facility] 06-19-2024 08:34-0500 Systolic blood pressure 126 mm[Hg] Ian Vasquez MD Work Phone: [facility] 06-04-2024 09:37-0500 Body weight 65.68 kg Fransicosofía Caceres DO Work Phone: [facility] 06-04-2024 09:37-0500 Diastolic blood pressure 84 mm[Hg] Christopher Nicki DO Work Phone: [facility] 06-04-2024 09:37-0500 Heart rate 74 /min Christopher Nicki DO Work Phone: [facility] 06-04-2024 09:37-0500 SaO2% (BldA) [Mass fraction] 100 % Christopher Nicki DO Work Phone: [facility] 06-04-2024 09:37-0500 Systolic blood pressure 132 mm[Hg] Christopher Nicki DO Work Phone: [facility] 05-07-2024 16:48-0500 Diastolic blood pressure 60 mm[Hg] Antionette Benitez DO Work Phone: [facility] 05-07-2024 16:48-0500 Systolic blood pressure 100 mm[Hg] Antoinette Benitez DO Work Phone: [facility] 05-07-2024 15:48-0500 Body height 175.3 cm Antionette Benitez DO Work Phone: [facility] 05-07-2024 15:48-0500 Body mass index (BMI) [Ratio] 20.86 kg/m2 Antionette Mcmahoneder DO Work Phone: [facility] 05-07-2024 15:48-0500 Body weight 64.1 kg Antionette Benitez DO Work Phone: [facility] 05-07-2024 15:48-0500 Heart rate 93 /min Antionette Benitez DO Work Phone: [facility] 05-07-2024 15:48-0500 SaO2% (BldA) [Mass fraction] 99 % Antionette Benitez DO Work Phone: [facility] 04-21-2024 01:00-0500 Diastolic blood pressure 84 mm[Hg] Hermelindo Lee [facility] 04-21-2024 01:00-0500 Heart rate 55 /min Hermelindo Lee [facility] 04-21-2024 01:00-0500 Mean blood pressure 94 mm[Hg] Hermelindo Lee [facility] 04-21-2024 01:00-0500 Respiratory rate 17 /min Hermelindo Lee [facility] 04-21-2024 01:00-0500 SaO2% (BldA) [Mass fraction] 99 % Hermelindo Lee [facility] 04-21-2024 01:00-0500 Systolic blood pressure 113 mm[Hg] Hermelindo Lee [facility] 04-21-2024 00:30-0500 Blood Pressure Location Hermelindo Lee [facility] 04-21-2024 00:30-0500 Diastolic blood pressure 90 mm[Hg] Hermelindo Lee [facility] 04-21-2024 00:30-0500 Heart rate 57 /min Hermelindo Lee [facility] 04-21-2024 00:30-0500 Mean blood pressure 100 mm[Hg] Hermelindo Lee [facility] 04-21-2024 00:30-0500 Respiratory rate 15 /min Hermelinod Lee [facility] 04-21-2024 00:30-0500 SaO2% (BldA) [Mass fraction] 98 % Hermelindo Lee [facility] 04-21-2024 00:30-0500 Systolic blood pressure 120 mm[Hg] Hermelindo Lee [facility] 04-20-2024 22:55-0500 Body temperature 98.42 [degF] Hermelindo Lee [facility] 04-20-2024 22:55-0500 Diastolic blood pressure 93 mm[Hg] Hermelindo Lee [facility] 04-20-2024 22:55-0500 Heart rate 83 /min Hermelindo Lee [facility] 04-20-2024 22:55-0500 Respiratory rate 20 /min Hermelindo Lee [facility] 04-20-2024 22:55-0500 SaO2% (BldA) [Mass fraction] 98 % Hermelindo Lee [facility] 04-20-2024 22:55-0500 Systolic blood pressure 133 mm[Hg] Hermelindo Lee [facility] 04-05-2024 15:27-0500 Diastolic blood pressure 80 mm[Hg] Antionette Benitez DO Work Phone: [facility] 04-05-2024 15:27-0500 Systolic blood pressure 122 mm[Hg] Antionette Benitez DO Work Phone: [facility] 04-05-2024 14:46-0500 Body height 175.3 cm Antionette Benitez DO Work Phone: [facility] 04-05-2024 14:46-0500 Body mass index (BMI) [Ratio] 20.64 kg/m2 Antionette Benitez DO Work Phone: [facility] 04-05-2024 14:46-0500 Body temperature 98.1 [degF] Antionette Benitez DO Work Phone: [facility] 04-05-2024 14:46-0500 Body weight 63.4 kg Antionette Benitez DO Work Phone: [facility] 04-05-2024 14:46-0500 Heart rate 98 /min Antionette Benitez DO Work Phone: [facility] 04-05-2024 14:46-0500 SaO2% (BldA) [Mass fraction] 97 % Antionette Benitez DO Work Phone: [facility] 03-16-2024 06:40-0500 Diastolic blood pressure 65 mm[Hg] Roney Mudrakola DO Work Phone: [facility] [employer] 03-16-2024 06:40-0500 Heart rate 72 /min Roney Mudrakola DO Work Phone: [facility] [employer] 03-16-2024 06:40-0500 Respiratory rate 16 /min Roney Mudrakola DO Work Phone: [facility] [employer] 03-16-2024 06:40-0500 SaO2% (BldA) [Mass fraction] 98 % Roney Mudrakola DO Work Phone: [facility] [employer] 03-16-2024 06:40-0500 Systolic blood pressure 106 mm[Hg] Roney Mudrakola DO Work Phone: [facility] [employer] 03-16-2024 04:59-0500 Body height 175.3 cm Roney Mudrakola DO Work Phone: [facility] 03-16-2024 04:59-0500 Body mass index (BMI) [Ratio] 20.67 kg/m2 Roney Michelekola DO Work Phone: [facility] 03-16-2024 04:59-0500 Body temperature 99.3 [degF] Roney Michelekola DO Work Phone: [facility] 03-16-2024 04:59-0500 Body weight 63.5 kg Roney Rynekola DO Work Phone: [facility] 11-30-2023 15:08-0400 Body height 173.4 cm Kalyn Karolyi DO Work Phone: [facility] [employer] [facility] 11-30-2023 15:08-0400 Body mass index (BMI) [Ratio] 20.35 kg/m2 Kalyn Karolyi DO Work Phone: [facility] 11-30-2023 15:08-0400 Body weight 61.15 kg Kalyn Karolyi DO Work Phone: [facility] [employer] [facility] 11-30-2023 15:08-0400 Diastolic blood pressure 74 mm[Hg] Kalyn Karolyi DO Work Phone: [facility] [employer] [facility] 11-30-2023 15:08-0400 Heart rate 88 /min Kalyn Karolyi DO Work Phone: [facility] 11-30-2023 15:08-0400 Systolic blood pressure 124 mm[Hg] Kalyn Karolyi DO Work Phone: [facility] 12-21-2021 08:11-0400 Body temperature 98.42 [degF] No Pcp Required [facility] 12-21-2021 08:11-0400 Diastolic blood pressure 77 mm[Hg] No Pcp Required [facility] 12-21-2021 08:11-0400 Diastolic blood pressure 72 mm[Hg] No Pcp Required [facility] 12-21-2021 08:11-0400 Heart rate 65 /min No Pcp Required [facility] 12-21-2021 08:11-0400 Heart rate 63 /min No Pcp Required [facility] 12-21-2021 08:11-0400 Respiratory rate 16 /min No Pcp Required [facility] 12-21-2021 08:11-0400 SaO2% (BldA) [Mass fraction] 94 % No Pcp Required [facility] 12-21-2021 08:11-0400 Systolic blood pressure 122 mm[Hg] No Pcp Required [facility] 12-21-2021 08:11-0400 Systolic blood pressure 116 mm[Hg] No Pcp Required [facility] Encounters Encounter Date Encounter Type Care Provider Facility Start: 01-30-2025 End: 01-30-2025 ambulatory ANTIONETTE BENITEZ [facility] Start: 01-08-2025 End: 01-08-2025 Office outpatient visit 25 minutes Antionette Benitez DO Work Phone: [facility] Comment on above: Bipolar affective di sorder, remission status unspecified (HCC) (Primary Dx); Borderline personality disorder (HCC); Chlamydia; Bacterial vaginosis; Fatigue, unspecified type Start: 01-08-2025 End: 01-08-2025 ambulatory ANTIONETTE BENITEZ [facility] Start: 12-26-2024 End: 12-26-2024 Unlisted evaluation and management service Samir Saunders [employer] Work Phone: [facility] Comment on above: Vaginal burning (Terri freddy Dx) Start: 12-26-2024 End: 12-26-2024 Unknown [facility] Start: 12-20-2024 End: 12-20-2024 Telephone encounter Antionette Benitez DO Work Phone: [facility] Start: 12-17-2024 End: 12-20-2024 Evaluation and management of inpatient ANTIONETTE BENITEZ [facility] Start: 12-04-2024 End: 12-04-2024 Office outpatient visit 15 minutes Jeanette Hawthorne [employer] Work Phone: [facility] Comment on above: Acute cystitis witho ut hematuria (Primary Dx); Burning with urination Start: 12-04-2024 End: 12-04-2024 Unknown [facility]TH[facility]NE [facility] Start: 10-28-2024 End: 10-28-2024 Telephone encounter Hailey Kearns RN [facility] Start: 10-28-2024 End: 10-28-2024 ambulatory NON STAFF [facility] Work Phone: Start: 10-28-2024 End: 10-28-2024 Patient encounter procedure Sarah Puri [employer] [facility] Work Phone: Start: 10-25-2024 End: 10-25-2024 Unlisted evaluation and management service Sadie Lombardo [employer] Work Phone: [facility] Comment on above: Sore throat (Primary Dx); Suspected COVID-19 virus infection Start: 10-25-2024 End: 10-25-2024 Unknown [facility]O [facility] Start: 10-24-2024 End: 10-24-2024 Initial preventive medicine new pt age 18-39yrs Tanvi Sommer MD Work Phone: [facility] Comment on above: Well woman exam with routine gynecological exam (Primary Dx); Burning with urination; Encounter for test, result unknown; Unprotected sexual intercourse Start: 10-24-2024 End: 10-24-2024 Patient encounter procedure Tanvi Sommer MD Work Phone: [facility] Start: 10-24-2024 End: 10-24-2024 ambulatory TANVI SOMMER [facility] Start: 10-24-2024 End: 10-24-2024 Office outpatient visit 15 minutes Fabby Bo PA-C Work Phone: [facility] Comment on above: Viral URI (Primary D x); Sore throat Start: 10-24-2024 End: 10-24-2024 Unknown FABBY BO [facility] Start: 10-13-2024 End: 10-21-2024 Hima Vasquez MD Work Phone: [facility] Comment on above: Med Refill Start: 09-21-2024 End: 09-21-2024 Unknown [facility]BY ANUPAM [facility] Start: 09-21-2024 End: 09-21-2024 Office outpatient new 30 minutes Fabby Bo PA-C Work Phone: [facility] Comment on above: Vaginal discharge (P rimary Dx); Dysuria Start: 08-29-2024 End: 10-23-2024 Patient encounter procedure Antionette Benitez DO Work Phone: [facility] Comment on above: Elevated blood press ure reading without diagnosis of hypertension (Primary Dx); Missed period Start: 08-29-2024 End: 08-29-2024 ambulatory ANTIONETTE BENITEZ [facility] Start: 08-22-2024 End: 08-22-2024 Departed Referred Myesha Caceres DO Work Phone: [facility] Work Phone: Start: 08-22-2024 End: 08-22-2024 ambulatory NON STAFF [facility] Work Phone: Start: 08-22-2024 End: 08-22-2024 Patient encounter procedure Myesha Caceres DO Work Phone: [facility] Work Phone: Start: [...] encounter procedure Myesha Caceres DO Work Phone: [facility] Work Phone: Start: 07-23-2024 End: 07-23-2024 ambulatory NON STAFF [facility] Work Phone: Start: 07-18-2024 End: 07-22-2024 Telephone encounter Jill Friedman [employer] Work Phone: [facility] Start: 07-09-2024 End: 09-09-2024 Follow-up encounter Antionette Benitez DO Work Phone: [facility] Start: 07-08-2024 End: 07-08-2024 Patient encounter procedure Antionette Benitez DO Work Phone: [facility] Comment on above: Right flank pain (Pr imary Dx); Vaginal discharge Start: 07-08-2024 End: 07-08-2024 ambulatory ANTIONETTE BENITEZ Facility[facility] Start: 07-07-2024 End: 07-07-2024 E-mail encounter from caregiver Antionette Benitez DO Work Phone: [facility] Start: 07-07-2024 End: 07-07-2024 Patient encounter procedure Antionette Benitez DO Work Phone: [facility] Comment on above: Appointment Request Start: 07-05-2024 End: 07-05-[address] [facility] [place] [place] Start: 06-27-2024 End: 07-02-2024 Refill Antionette Benitez DO Work Phone: [facility] Comment on above: Refill Request Start: 06-19-2024 End: 07-16-2024 [facility] Start: 06-19-2024 End: 06-19-2024 Office outpatient new 45 minutes Ian Vasquez MD Work Phone: [facility] Comment on above: Syncope, unspecified syncope type (Primary Dx); Palpitations Start: 06-19-2024 End: 06-19-2024 [facility] [place] [facility] Start: 06-18-2024 End: 06-18-2024 ambulatory ANTIONETTE N BENITEZ [facility] Start: 06-18-2024 End: 06-18-2024 Telephone encounter [facility] Start: 06-12-2024 End: 06-12-2024 ambulatory MYESHA CACERES Not Available Start: 06-11-2024 End: 06-11-2024 ambulatory ANTIONETTE N BENITEZ Facility[facility] Start: 06-11-2024 End: 06-11-2024 Patient encounter procedure Antionette Aurora Benitez DO Work Phone: [facility] Comment on above: Subclinical hypothyr oidism (Primary Dx); Vasovagal syncope; Seizure-like activity (HCC) Start: 06-11-2024 End: 06-11-2024 Telemedicine consultation with patient Antionette Aurora Benitez DO Work Phone: [facility] Start: 06-11-2024 End: 06-13-2024 Refill Antionette Aurora Benitez DO Work Phone: [facility] Comment on above: Refill Request Start: 06-06-2024 End: 06-06-2024 Chart abstracting Scanning Provider External [facility] Start: 06-04-2024 End: 06-04-2024 Bamboo [...] End: 05-07-2024 Patient encounter procedure Antionette Aurora McmahonBenitez DO Work Phone: [facility] Comment on above: Vasovagal syncope (P rimary Dx); Sinus tachycardia; Subclinical hypothyroidism; Cervicogenic headache; Borderline personality disorder (HCC) Start: 05-07-2024 End: 05-07-2024 ambulatory ANTIONETTE BENITEZ [facility] Start: 04-20-2024 End: 04-21-2024 Emergency department patient visit DO Hermelindo SyedCandice Howard Facility:[facility] Start: 04-12-2024 End: 04-12-2024 ambulatory ANTIONETTE BENITEZ [facility] Start: 04-12-2024 End: 04-12-2024 Nursing evaluation of patient and report Nurse Geoffrey Gillespie [facility] Work Phone: [facility] Comment on above: Palpitations (Primar y Dx) Start: 04-10-2024 End: 04-10-2024 ambulatory ANTIONETTE BENITEZ [facility] Start: 04-10-2024 End: 04-10-2024 Nursing evaluation of patient and report Nurse Geoffrey Gillespie [facility] Work Phone: [facility] Comment on above: Elevated blood press ure reading without diagnosis of hypertension; Palpitations Start: 04-05-2024 End: 04-05-2024 ambulatory ANTIONETTE BENITEZ [facility] Start: 04-05-2024 End: 04-05-2024 Patient encounter procedure Antionette Aurora McmahonBenitez DO Work Phone: [facility] Comment on above: Palpitations (Primar y Dx); Borderline personality disorder (HCC) Start: 04-05-2024 End: 04-08-2024 Telephone encounter Antionette Benietz DO Work Phone: [facility] Comment on above: Future Appointment ( Holter Monitor ) Start: 03-16-2024 End: 03-16-2024 Emergency department patient visit Roney Abdi DO Work Phone: [facility] Comment on above: Acute cystitis with hematuria (Primary Dx); Pyelonephritis Start: 02-07-2024 End: 02-07-[address] [facility] Start: 02-07-2024 Encounter for gynecological examination (general) (routine) without abnormal findings [facility] Start: 11-30-2023 End: 11-30-2023 ambulatory [facility] Start: 11-30-2023 ambulatory [facility] Start: 11-30-2023 Encounter for genera l adult medical examination without abnormal findings [facility] Start: 11-30-2023 End: 11-30-2023 Patient encounter status Kalyn Thomas DO Work Phone: [facility] Start: 11-30-2023 End: 11-30-2023 Periodic preventive med est patient 18-39 yrs Kalyn Gilman DO Work Phone: [facility] Comment on above: Well adult exam (Terri freddy Dx); Atopic neurodermatitis; Need for vaccination Start: 12-17-2021 End: 12-21-2021 Evaluation and management of inpatient Edna Kurtz Inpt [address] Rm [id number] Start: 09-13-2018 End: 09-14-2018 Patient encounter procedure DOCTOR ROSEANNE Facility:[facility] Start: 08-15-2018 End: 08-16-2018 Patient encounter procedure AYAAN CASTRO Facility:[facility] Procedures Date Procedure Procedure Detail Performing Clinician Start: 12-18-2024 Lipid 1996 panel - S edin or Plasma Sirilak Ham [employer] Work Phone: Start: 12-04-2024 Infectious agent enzymatic actv oth/thn virus Muhamad R Rogelio [employer] Work Phone: Start: 12-04-2024 Urine test visual color cmprsn meths Ortegaad Mell Luislei [employer] Work Phone: Start: 10-25-2024 SARS-CoV-2 (COVID-19 ) Ag [Presence] in Respiratory specimen by Rapid immunoassay Sadie Lombardo [employer] Work Phone: Start: 10-24-2024 Iadna respiratry pro be & rev trnscr 3-5 targets Fabby Bo PA-C Work Phone: Start: 10-24-2024 Microscopic observat ion [Identifier] in Cervix by Cyto stain Tanvi Sommer MD Work Phone: Start: 09-21-2024 Infectious agent enzymatic actv oth/thn virus Fabby Bo PA-C Work Phone: Start: 09-21-2024 Urine test visual color cmprsn raginis Fabby Bo PA-C Work Phone: Start: 08-22-2024 Quick Strep (POC) Krunal Caceres DO Work Phone: Start: 07-23-2024 MRI of head Lexa Schaeferett DO Work Phone: Start: 07-08-2024 Urnls dip stick/tabl et rgnt auto w/o microscopy Antionette Benitez DO Work Phone: Start: 04-05-2024 Ecg routine ecg w/le ast 12 lds i&r only [facility] Provider Start: 03-16-2024 Urine test visual color cmprsn meths Roneyanoop Abdi DO Work Phone: Start: 03-16-2024 Urnls dip [...] for Adults (1 - 1-dose 75+ series) [facility] Start: 10-19-2053 Zoster Vaccines (1 o f 2) Zoster Vaccines (1 of 2) [facility] Start: 11-29-2033 DTaP,Tdap and Td Vaccines (8 - Td or Tdap) DTaP,Tdap and Td Vaccines (8 - Td or Tdap) [facility] Start: 11-29-2033 DTaP/Tdap/Td Vaccine s (8 - Td or Tdap) DTaP/Tdap/Td Vaccines (8 - Td or Tdap) [facility] Start: 11-29-2033 Urine microalbumin profile DTaP,Tdap,Td Vaccine (8 - Td or Tdap) [facility] Start: 12-18-2029 Lipid panel Lipid Panel [facility] Start: 10-25-2027 Screening for malignant neoplasm of cervix [facility] Start: 02-06-2027 Screening for malignant neoplasm of cervix Pap Smear [facility] Start: 12-18-2026 Lipid panel Lipid Panel [facility] Start: 01-08-2026 Annual PCP Team Chronic Disease Visit Annual PCP Team Chronic Disease Visit [facility] Start: 10-25-2025 Yearly Adult Physical Yearly Adult P hysical [facility] Start: 10-24-2025 Adult BMI Screening Adult BMI Screen ing [facility] Start: 10-24-2025 Screening for Chlamydia trachomatis Chlamydia Screening [facility] Start: 10-24-2025 Tobacco Screening Tobacco Screening [facility] Start: 08-29-2025 Annual PCP Team Chronic Disease Visit Annual PCP Team Chronic Disease Visit [facility] Start: 07-08-2025 Annual PCP Team Chronic Disease Visit Annual PCP Team Chronic Disease Visit [facility] Start: 07-08-2025 GC (Gonorrhea) Screening (18-24) GC (Gonorrhea) Screening (18-24) [facility] Start: 07-08-2025 Screening for Chlamydia trachomatis Chlamydia Screening (18-) [facility] Start: 06-19-2025 Adult BMI Screening Adult BMI Screen ing [facility] Start: 06-19-2025 Tobacco Screening Tobacco Screening [facility] Start: 06-11-2025 Annual PCP Team Chronic Disease Visit Annual PCP Team Chronic Disease Visit [facility] Start: 05-07-2025 Annual PCP Team Chronic Disease Visit Annual PCP Team Chronic Disease Visit [facility] Start: 01-08-2025 End: 04-09-2025 BACTERIAL VAGINOSIS NAAT BACTERIAL VAGINOSIS NAAT Lab Routine Chlamydia Bacterial vaginosis Expected: 01/08/2025, Expires: 04/09/2025 [facility] Comment on above: Expected: 01/08/2025 , Expires: 04/09/2025 Start: 01-08-2025 End: 04-09-2025 RENE/TRICHOMONAS NAAT RENE/TRICHOMONAS NAAT Lab Routine Chlamydia Bacterial vaginosis Expected: 01/08/2025, Expires: 04/09/2025 [facility] Comment on above: Expected: 01/08/2025 , Expires: 04/09/2025 Start: 01-08-2025 End: 04-09-2025 Chlamydia trachomatis+Neisseria gonorrhoeae DNA [Presence] in Unspecified specimen by FERMÍN with probe detection GONORRHEA/CHLAMYDIA NAAT Lab Routine Chlamydia Bacterial vaginosis Expected: 01/08/2025, Expires: 04/09/2025 [facility] Work Phone: Comment on above: Expected: 01/08/2025 , Expires: 04/09/2025 Start: 01-08-2025 End: 04-09-2025 Cobalamin (Vitamin B12) [Mass/volume] in Serum or Plasma VITAMIN B12 Lab Routine Fatigue, unspecified type Expected: 01/08/2025, Expires: 04/09/2025 [facility] Comment on above: Expected: 01/08/2025 , Expires: 04/09/2025 Start: 01-08-2025 End: 04-09-2025 Ferritin [Mass/volume] in Serum or Plasma FERRITIN Lab Routine Fatigue, unspecified type Expected: 01/08/2025, Expires: 04/09/2025 [facility] Comment on above: Expected: 01/08/2025 , Expires: 04/09/2025 Start: 01-08-2025 End: 04-09-2025 Iron and Iron binding capacity panel - Serum or Plasma IRON AND TIBC Lab Routine Fatigue, unspecified type Expected: 01/08/2025, Expires: 04/09/2025 [facility] Comment on above: Expected: 01/08/2025 , Expires: 04/09/2025 Start: 01-08-2025 End: 04-09-2025 Thyrotropin [Units/volume] in Serum or Plasma THYROID STIMULATING HORMONE Lab Routine Fatigue, unspecified type Expected: 01/08/2025, Expires: 04/09/2025 [facility] Comment on above: Expected: 01/08/2025 , Expires: 04/09/2025 Start: 12-23-2024 COVID-19 Vaccine () COVID-19 Vaccine () [facility] Start: 12-23-2024 Influenza vaccination [facility] Start: 11-30-2024 Yearly Adult Physical Yearly Adult P hysical [facility] Start: 11-29-2024 Adult BMI Screening Adult BMI Screen ing [facility] Start: 11-29-2024 Depression Screening Depression Scre ening [facility] Start: 11-29-2024 Tobacco Screening Tobacco Screening [facility] Start: 11-05-2024 End: 11-05-2024 Patient encounter procedure 11/05/2024 10:45 AM EDT Office Visit [facility] [address] [facility] [address] [place] [address] Tanvi Sommer MD [address] [facility] [place] [address] [facility] Start: 10-24-2024 End: 10-24-2024 Patient encounter procedure 10/24/2024 2:15 PM EDT Office Visit [facility] [address] [facility] [address] [facility] [place] [address] Tanvi Sommer MD [address] [facility] [place] [address] [facility] Start: 10-19-2024 Screening for malignant neoplasm of cervix [facility] Start: 09-24-2024 End: 09-24-2024 Patient encounter procedure 09/24/2024 1:00 PM EDT Office Visit [facility] [address] [place] [address] Lisa Henderson PA-C [address] [place] [address] [facility] Start: 09-23-2024 End: 09-23-2024 Patient encounter procedure 09/23/2024 10:00 AM EDT Office Visit [facility] [address] [place] [phone] Tania Youngblood PA [address] [place] [address] [facility] Start: 08-22-2024 [facility] Start: 08-12-2024 End: 08-12-2024 Patient encounter procedure 08/12/2024 9:20 AM EDT Office Visit [facility] SIFUENT[facility] [address] [place] [id number] Tania Youngblood PA [address] [place] [address] Arrived [facility] Comment on above: Arrived Start: 07-10-2024 End: 07-10-2024 Patient encounter procedure 07/10/2024 3:15 PM EDT Office Visit [facility] [address] [place] [phone] Myesha Caceres DO [address] [place] [address] [facility] Start: 07-08-2024 End: 07-08-2024 Patient encounter procedure 07/08/2024 3:40 PM EDT Office Visit [facility] [address] [place] [address] Antionette Benitez DO [address] [place], [place] [id number] Possible Kidney Infection [facility] Comment on above: Possible Kidney Infe ction Start: 06-19-2024 End: 06-19-2025 Echo complete W/O contrast Echo complete W/O contrast Echocardiography Routine Syncope, unspecified syncope type Palpitations Expected: 06/19/2024, Expires: 06/19/2025 [facility] Work Phone: Comment on above: Expected: 06/19/2024 , Expires: 06/19/2025 Start: 06-19-2024 End: 06-19-2025 Event [facility]In Office[facility] Comment on above: Expected: 06/19/2024 , Expires: 06/19/2025 Start: 06-19-2024 End: 06-19-2024 Patient encounter procedure 06/19/2024 9:00 AM EST Office Visit [facility] [address] [place] [address] Ian Vasquez MD [address] [place] [address] [facility] Start: 06-12-2024 End: 06-12-2024 Clinical Support 06/12/2024 4:00 PM EST Clinical Support JULI THOMPSONUE [address] [place] [phone] JULI SIFUENTES Start: 06-11-2024 End: 09-10-2024 TSH W/REFLEX FT4 TSH W/REFLEX FT4 Lab Routine Subclinical hypothyroidism Expected: 06/11/2024, Expires: 09/10/2024 [facility] Work Phone: Comment on above: Expected: 06/11/2024 , Expires: 09/10/2024 Start: 06-07-2024 End: 06-07-2024 ambulatory 06/07/2024 10:40 AM EST [facility] [address] [place], [place] [id number] Antionette Benitez, DO [address] [id number] 1 month [facility] Comment on above: 1 month Start: 06-04-2024 End: 06-04-2025 EEG, Including Recording Awake or Asleep EEG, Including Recording Awake or Asleep Neurology Routine Seizure (CMS/HCC) Expected: 06/04/2024 (Approximate), Expires: 06/04/2025 [facility] Comment on above: Expected: 06/04/2024 (Approximate), Expires: 06/04/2025 Start: 06-04-2024 End: 06-04-2025 MR Brain WO and W contrast IV MR brain w and wo contrast routine Imaging Routine Seizure (CMS/HCC) Expected: 06/04/2024, Expires: 06/04/2025 [facility] Work Phone: Comment on above: Expected: 06/04/2024 , Expires: 06/04/2025 Start: 06-04-2024 End: 06-04-2024 Patient encounter procedure 06/04/2024 9:30 AM EST Office Visit JULI KHAN [address] [place] [phone] Myesha Caceres DO [address] [place] [id number] Arrived JULI KHAN Comment on above: Arrived Start: 05-06-2024 End: 05-06-2024 Patient encounter procedure 05/06/2024 9:40 AM EST Office Visit [facility] [address] [place] [address] Antionette Benitez, [address] [place] [address] 1 mo follow up [facility] Comment on above: 1 mo follow up Start: 04-12-2024 End: 04-12-2024 Nursing evaluation of patient and report 04/12/2024 3:30 PM EST Nurse Visit [facility] [address] [place] [phone] Moc, Nurse Famp [facility] [address] [place] [address] holter return [facility] Comment on above: holter return Start: 04-10-2024 End: 04-10-2024 Nursing evaluation of patient and report 04/10/2024 1:00 PM EST Nurse Visit [facility] [address] [place] [address] Moc, [facility] [address] [place] [address] Holter Monitor 48hr [facility] Comment on above: Holter Monitor 48hr Start: 12-24-2023 COVID-19 Vaccine ( season) COVID-19 Vaccine ( season) [facility] Start: 12-24-2023 COVID-19 Vaccine ( season) COVID-19 Vaccine ( season) [facility] Start: 12-24-2023 Influenza vaccination [facility] Start: 12-23-2022 COVID-19 Vaccine ( season) COVID-19 Vaccine ( season) [facility] Start: 12-17-2021 End: 12-18-2022 [facility] Start: 10-19-2021 Depression Screening Depression Scre [facility] Start: 10-19-2021 GC (Gonorrhea) Screening (18-24) GC (Gonorrhea) Screening (18-24) [facility] Start: 10-19-2021 Hepatitis C screening Hepatitis C Sc antonietta [facility] Start: 10-19-2021 HIV screening HIV Screening [facility] Start: 10-19-2021 Screening for Chlamydia trachomatis Chlamydia Screening (18-24) [facility] Start: 10-19-2017 Peds To Adult Transition Annual Assessment Peds To Adult Transition Annual Assessment [facility] Start: 2015 Depression Screening Depression Scre ening [facility] Start: 2015 Peds To Adult Transition Initial Discussion Peds To Adult Transition Initial Discussion [facility] Start: 2015 Tobacco Screening Tobacco Screening [facility] Start: 10-19-2009 Pneumococcal Vaccine : Pediatrics and At-Risk Adult Patients (1 of 1 - PPSV23, PCV20, or PCV21) Pneumococcal Vaccine: Pediatrics and At-Risk Adult Patients (1 of 1 - PPSV23, PCV20, or PCV21) [facility] Start: 2007 Hearing Screening (#1) Hearing Scree angella (#1) [facility] Start: 2003 HIV screening HIV Screening [facility] Start: 2003 Thyroid stimulating hormone measurement TSH Level [facility] Start: 2003 Yearly Adult Physical Yearly Adult P hysical [facility] Atopobium vaginae DN A [Presence] in Vaginal fluid by FERMÍN with probe detection [facility] Bacteria identified in Urine by Culture BACTERIAL CULTURE, URINE Microbiology Routine Right flank pain Ordered: 07/08/2024 [facility] Comment on above: Ordered: 07/08/2024 Bacteria identified in Urine by Culture Urine Culture Microbiology Routine Dysuria Ordered: 09/21/2024 [facility]gent [facility] Work Phone: Comment on above: Ordered: 09/21/2024 Bacteria identified in Urine by Culture Urine Culture Microbiology Routine Burning with urination Ordered: 12/04/2024 [facility]gent [facility] Work Phone: Comment on above: Ordered: 12/04/2024 Bacterial vaginosis associated bacterium 2 DNA [Presence] in Vaginal fluid by FERMÍN with probe detection [facility] BACTERIAL VAGINOSIS NAAT BACTERIAL VAGINOSIS NAAT Lab Routine Vaginal discharge Ordered: 07/08/2024 [facility] Comment on above: Ordered: 07/08/2024 RENE/TRICHOMONAS NAAT RENE/TRICHOMONAS NAAT Lab Routine Vaginal discharge Ordered: 07/08/2024 [facility] Comment on above: Ordered: 07/08/2024 Chlamydia trachomati s DNA [Presence] in Unspecified specimen by FERMÍN with probe detection Chlamydia/GC by PCR [facility] Microbiology Routine Unprotected sexual intercourse 10/24/2024 2:51 PM EDT [facility] Chlamydia trachomatis+Neisseria gonorrhoeae DNA [Presence] in Unspecified specimen by FERMÍN with probe detection GONORRHEA/CHLAMYDIA NAAT Lab Routine Vaginal discharge Ordered: 07/08/2024 [facility] Comment on above: Ordered: 07/08/2024 End: 04-05-2025 ECG COMPLETE ECG COMPLETE ECG Routine Palpitations 1 Occurrences starting 04/05/2024 until 04/05/2025 [facility] Work Phone: Comment on above: 1 Occurrences starti ng 04/05/2024 until 04/05/2025 ECG COMPLETE ECG COMPLETE ECG Palpitations 04/05/2024 4:17 PM EST [facility] Megasphaera sp type 1 DNA [Presence] in Vaginal fluid by FERMÍN with probe detection [facility] Thin Prep Pap Test Thin Prep Pap Test Pathology and Cytology Routine Well woman exam with routine gynecological exam 10/24/2024 2:51 PM EDT [facility] Work Phone: End: 11-29-2024 Thyroid profile includes TSH FT4 Thyroid profile includes TSH FT4 Lab Routine Atopic neurodermatitis 1 Occurrences starting 11/30/2023 until 11/29/2024 [facility] Work Phone: Comment on above: 1 Occurrences starti ng 11/30/2023 until 11/29/2024 Thyroid profile includes TSH FT4 Thyroid profile includes TSH FT4 Lab Routine Atopic neurodermatitis 11/30/2023 3:55 PM EDT [facility] URINALYSIS, REFLEX MICROSCOPIC URINALYSIS, REFLEX MICROSCOPIC Lab Routine Right flank pain Ordered: 07/08/2024 [facility] Work Phone: Comment on above: Ordered: 07/08/2024 Vaginitis Gram Stain For Bacterial Vaginosis + Yeast Vaginitis Gram Stain For Bacterial Vaginosis + Yeast Microbiology Routine Vaginal discharge Ordered: 09/21/2024 [facility] Work Phone: Comment on above: Ordered: 09/21/2024 Vaginitis Panel PCR Vaginitis Pa dorian PCR Microbiology Routine Unprotected sexual intercourse 10/24/2024 2:51 PM EDT [facility] Immunizations Immunization Date Immunization Notes Care Provider Fa sandraty 11-30-2023 tetanus toxoid, redu mami diphtheria toxoid, and acellular pertussis vaccine, adsorbed Kalyn Karolyi DO Work Phone: [facility] 11-30-2023 Immunization, In Cli hermilo,; Translations: [Drug or medicament (substance)] Kalyn Karolyi DO Work Phone: [facility] 02-23-2021 influenza, injectabl e, quadrivalent, preservative free Kalyn Karolyi DO Work Phone: [facility] 02-23-2021 influenza virus vacc ine, unspecified formulation Kalyn Karolyi DO Work Phone: [facility] 03-16-2020 meningococcal B vacc ine, recombinant, OMV, adjuvanted Kalyn Karolyi DO Work Phone: [facility] 02-10-2020 influenza, live, intranasal, quadrivalent Kalyn Karolyi DO Work Phone: [facility] 02-10-2020 meningococcal B vacc ine, recombinant, OMV, adjuvanted Kalyn Karolyi DO Work Phone: [facility] 02-10-2020 meningococcal oligosaccharide (groups A, C, Y and W-135) diphtheria toxoid conjugate vaccine (MCV4O) Kalyn Karolyi DO Work Phone: [facility] 02-13-2018 Human Papillomavirus 9-valent vaccine Kalyn Karolyi DO Work Phone: [facility] 02-13-2018 influenza, injectabl e, quadrivalent, preservative free Kalyn Karolyi DO Work Phone: [facility] 02-13-2017 Human Papillomavirus 9-valent vaccine Kalyn Karolyi DO Work Phone: [facility] 02-13-2017 influenza, injectabl e, quadrivalent, preservative free Kalyn Karolyi DO Work Phone: [facility] 06-11-2015 influenza virus vacc ine, unspecified formulation Kalyn Karolyi DO Work Phone: [facility] 03-23-2015 influenza virus vacc ine, unspecified formulation Kalyn Karolyi DO Work Phone: [facility] 03-23-2015 meningococcal oligosaccharide (groups A, C, Y and W-135) diphtheria toxoid conjugate vaccine (MCV4O) Kalyn Karolyi DO Work Phone: [facility] 12-02-2013 tetanus toxoid, redu mami diphtheria toxoid, and acellular pertussis vaccine, adsorbed Kalyn Karolyi DO Work Phone: [facility] 10-23-2012 hepatitis A vaccine, adult dosage Kalyn Karolyi DO Work Phone: [facility] 01-17-2012 hepatitis A vaccine, adult dosage Kalyn Karolyi DO Work Phone: [facility] 10-22-2007 diphtheria, tetanus toxoids and acellular pertussis vaccine Kalyn Karolyi DO Work Phone: [facility] 10-22-2007 measles, mumps and rubella virus vaccine Kalyn Karolyi DO Work Phone: [facility] 10-22-2007 poliovirus vaccine, inactivated Kalyn Karolyi DO Work Phone: [facility] 10-22-2007 varicella virus vaccine Trac y Karolyi DO Work Phone: [facility] 02-04-2006 influenza virus vacc ine, unspecified formulation Kalyn Karolyi DO Work Phone: [facility] 04-20-2005 diphtheria, tetanus toxoids and acellular pertussis vaccine Kalyn Karolyi DO Work Phone: [facility] 01-19-2005 haemophilus influenz ae type b vaccine, conjugate unspecified formulation Kalyn Karolyi DO Work Phone: [facility] 01-19-2005 measles, mumps and rubella virus vaccine Kalyn Karolyi DO Work Phone: [facility] 10-21-2004 pneumococcal conjuga te vaccine, 13 valent Kalyn Karolyi DO Work Phone: [facility] 10-21-2004 varicella virus vaccine Trac y Karolyi DO Work Phone: [facility] 07-16-2004 pneumococcal conjuga te vaccine, 13 valent Kalyn Karolyi DO Work Phone: [facility] 04-28-2004 diphtheria, tetanus toxoids and acellular pertussis vaccine Kalyn Karolyi DO Work Phone: [facility] 04-28-2004 haemophilus influenz ae type b vaccine, conjugate unspecified formulation Kalyn Karolyi DO Work Phone: [facility] 04-28-2004 hepatitis B vaccine, pediatric or pediatric/adolescent dosage Kalyn Karolyi DO Work Phone: [facility] 04-28-2004 poliovirus vaccine, inactivated Kalyn Karolyi DO Work Phone: [facility] 03-15-2004 diphtheria, tetanus toxoids and acellular pertussis vaccine Kalyn Karolyi DO Work Phone: [facility] 03-15-2004 haemophilus influenz ae type b vaccine, conjugate unspecified formulation Kalyn Karolyi DO Work Phone: [facility] 03-15-2004 hepatitis B vaccine, pediatric or pediatric/adolescent dosage Kalyn Karolyi DO Work Phone: [facility] 03-15-2004 pneumococcal conjuga te vaccine, 13 valent Kalynedin Thomasi DO Work Phone: [facility] 03-15-2004 poliovirus vaccine, inactivated Kalynedin Thomasi DO Work Phone: [facility] 01-06-2004 diphtheria, tetanus toxoids and acellular pertussis vaccine Kalynedin Thomasi DO Work Phone: [facility] 01-06-2004 haemophilus influenz ae type b vaccine, conjugate unspecified formulation Kalynedin Gilman DO Work Phone: [facility] 01-06-2004 hepatitis B vaccine, pediatric or pediatric/adolescent dosage Kalynedin Thomasi DO Work Phone: [facility] 01-06-2004 pneumococcal conjuga te vaccine, 13 valent Kalynedin Thomasi DO Work Phone: [facility] 01-06-2004 poliovirus vaccine, inactivated Kalynedin Thomasi DO Work Phone: [facility] 2003 hepatitis B vaccine, pediatric or pediatric/adolescent dosage Kalynedin Thomasi DO Work Phone: [facility] Payers Date Payer Category Payer Self-pay 2019 Managed Care Other (unspecified) [id number] 2018 Private Health Insurance [id number] 2018 Unknown 2003 Unknown [id number] [id number] 2003 Unknown [id number] 2.16.840.1.930390.3.579.2.727 2003 Unknown [id number] 2.16.840.1.230825.3.579.2.727 2003 Unknown [id number] 2.16.840.1.800486.3.579.2.727 2003 Unknown [id number] 2.16.840.1.043115.3.579.2.1286 2003 Unknown [id number] 2.16.840.1.908929.3.579.2.128 2003 Unknown [id number] 2.16.840.1.650402.3.579.2.128 2003 Unknown [id number] 2.16.840.1.027509.3.579.2.1259 2003 Unknown [id number] 2.16.840.1.849780.3.579.2.9 2003 Unknown [id number] 2.16840.1.104463.3.579.2.1259 2003 Unknown [id number] 2.16.840.1.470766.3.579.2.1259 2003 Unknown [id number] 2.16.840.1.094553.3.579.2.1285 2003 Unknown [id number] 2.16.840.1.945044.3.579.2.1285 2003 Unknown [id number] 2.16.840.1.784154.3.579.2.128 2003 Unknown [id number] 2.16.840.1.397232.3.579.2.124 2003 Unknown [id number] 2.16.840.1.872595.3.579.2.1242 2003 Unknown [id number] 2.16.840.1.461895.3.579.2.124 2003 Unknown [id number] 2.16.840.1.958447.3.579.2.1242 2003 Unknown [id number] 2.16.840.1.689205.3.579.2.1243 1973 Unknown [id number] 2.16.840.1.341772.3.579.2.593 1973 Unknown [id number] 2.16.840.1.392223.3.579.2.593 1959 Unknown [id number] Unknown [id number] 2.16.840.1.924734.3.579.2.531 Unknown [id number] 2.16.840.1.705443.3.579.2.531 Social History Date Type Detail Facility Replaced by [facility] Start: 06-04-2024 End: 08-22-2024 Tobacco smoking consumption unknown [facility] Start: 03-16-2024 End: 06-18-2024 History of Social function [facility] Start: 03-16-2024 End: 06-18-2024 Alcohol Use Disorder Identification Test - Consumption [AUDIT-C] [facility] How often to you hav e a drink containing alcohol? Monthly or less [facility] How many standard dr inks containing alcohol do you have on a typical day? 3 or 4 [facility] How often do you hav e 6 or more drinks on 1 occasion? Never [facility] Start: 2003 Sex assigned at Not on file [facility] Start: 11-25-2014 End: 03-16-2024 Sex Female (finding) [facility] Start: 04-05-2024 End: 10-24-2024 Tobacco smoking status NHIS Ex-smoker [facility] Start: 01-23-2024 History of tobacco use Current smoker [facility] Start: 01-23-2024 History of tobacco use Cigarette Smoker [facility] Start: 04-05-2024 End: 10-24-2024 Tobacco use and exposure Smokeless tobacco non-user [facility] Start: 04-05-2024 End: 01-08-2025 Alcoholic beverage intake Current drinker of alcohol (finding) [facility] Start: 03-19-2022 End: 03-27-2024 National Score (1-100), lower number is lower risk 80 [facility] Start: 04-05-2024 End: 10-24-2024 Alcohol Comment socially [facility] Tobacco smoking status No Smokin g Status Entered [facility] Has the [employer], or [employer] company threatened to shut off services in your home in past 12Mo No [facility] Are you now , , , , never or living with a partner? Never [facility] Do you feel stress - tense, restless, nervous, or anxious, or unable to sleep at night because your mind is troubled all the time - these days [OSQ] Very much [facility] Start: 02-13-2018 End: 11-19-2022 Tobacco smoking status [facility] Start: 06-19-2024 Alcoholic beverage intake Ex-drinker (finding) [facility] Start: 2003 Sex Assigned At Female [facility] Start: 10-24-2024 Tobacco smoking status ALIS Smokes tobacco daily [facility] Work Phone: Functional Status Date Assessment Result Facility 04-20-2024 Functional Status N/A [facility] Functional observable [facility] Mental Status Date Assessment Result Facility 12-17-2021 Cognitive functions [id number] [facility] Clinical Notes 12-21-2021 to 01-08-2025 Antionette Benitez DO - 01/08/2025 12:21 PM Krishna Diggs MA - 01/08/2025 10:56 AM LYNSEY Hines - 12/26/2024 3:20 PM EDTTelephone Encounter - Ashley Warren - 12/20/2024 7:54 AM EDT Note Date & Type Note Facility 01-08-2025 Note HNO ID: [id number] Author: ANTIONETTE BENITEZ DO Service: ? Author Type: Physician Type: Progress Notes Filed: 01/08/2025 12:22 Note Text: Subjective Travon Stallworth is a 19-year-old female with a history of BPD, bipolar, and hypothyroidism, presenting for follow-up after a recent psychiatric hospitalization and treatment for chlamydia and BV. Travon was recently hospitalized for 4 days at [facility] in [place] after self-admitting herself for SI, BPD. She self-admitted due to difficulties balancing school and work, family issues, and discontinuation of Prozac and Abilify for 2 months without consulting her psychiatrist. She reports feeling overwhelmed and experiencing suicidal ideation, leading to her decision to seek inpatient care. During her hospitalization, other psych meds discontinued and she was prescribed lamotrigine, which she has been taking for 2 weeks, currently at a dose of 50 mg. She is also taking levothyroxine 25 mcg for hypothyroidism. Travon was diagnosed with chlamydia and BV during her hospital stay and was prescribed doxycycline and metronidazole for 1 week. She completed the antibiotic course 4-5 days ago but reports vomiting one dose. She denies any current symptoms of chlamydia or BV and has not had intercourse for approximately 3 months. She expresses concern about potential reinfection due to the missed dose. Travon reports weight gain and increased fatigue, which she attributes to her hypothyroidism and possibly the lamotrigine. She requests a thyroid function test to evaluate her current thyroid status. Constitutional: (+) weight gain, (+) fatigue Gastrointestinal: (+) vomiting Objective Blood pressure 114/79, pulse 75, temperature 36.7 ?C (98.1 ?F), weight 72.9 kg (160 lb 11.5 oz), last menstrual period 07/30/2024, SpO2 99%. GENERAL: NAD, alert and oriented SKIN: unremarkable, [...] intact, normal gait, no involuntary motions Labs: (Testing date not provided) - Blood test for chlamydia: Positive - Laboratory analysis for bacterial vaginosis: Positive - No anemia reported Assessment AND Plan 1. Bipolar affective disorder, remission status unspecified (HCC) (F31.9) 2. Borderline personality disorder (HCC) (F60.3) Recent psychiatric hospitalization due to medication non-adherence and psychosocial stressors. Can not view notes, but suspect they diagnosed her with bipolar depression given decision to initiate lamotrigine. - Continue lamotrigine as prescribed; currently titrating dose upwards. Recommended she reestablish with her psychiatrist to discuss. - Educated on expected delayed onset of therapeutic effect. 3. Chlamydia (A74.9) 4. Bacterial vaginosis (N76.0) Recently completed 7-day course of doxycycline 100 mg BID for chlamydia and metronidazole for BV; one dose of doxycycline was vomited, but regimen otherwise completed. - Advised to wait until after January 22 (at least one month post-treatment) before retesting to avoid false positives from residual non-viable organisms. - Order for self-collected vaginal swab for chlamydia and gonorrhea to be performed at [facility] lab after January 22. - Advised to use condoms with any sexual partners until negative test results are confirmed. 5. Fatigue, unspecified type (R53.83) Fatigue and weight gain may be related to hypothyroidism, lamotrigine side effects, or other causes. - Order TSH, B12, and iron studies to evaluate for hypothyroidism, vitamin B12 deficiency, and iron deficiency anemia. Dr. Antionette Benitez, DO Recording using [employer] software for draft documentation of the visit was discussed with the patient/authorized marketing development representative; all questions welcomed and answered. Patient/authorized marketing development representative agreed to proceed [facility] 01-08-2025 History of Present illness Narrative Subjective Travon Stallworth is a 19-year-old female with a history of BPD, bipolar, and hypothyroidism, presenting for follow-up after a recent psychiatric hospitalization and treatment for chlamydia and BV. Travon was recently hospitalized for 4 days at [facility] in [place] after self-admitting herself for SI, BPD. She self-admitted due to difficulties balancing school and work, family issues, and discontinuation of Prozac and Abilify for 2 months without consulting her psychiatrist. She reports feeling overwhelmed and experiencing suicidal ideation, leading to her decision to seek inpatient care. During her hospitalization, other psych meds discontinued and she was prescribed lamotrigine, which she has been taking for 2 weeks, currently at a dose of 50 mg. She is also taking levothyroxine 25 mcg for hypothyroidism. Travon was diagnosed with chlamydia and BV during her hospital stay and was prescribed doxycycline and metronidazole for 1 week. She completed the antibiotic course 4-5 days ago but reports vomiting one dose. She denies any current symptoms of chlamydia or BV and has not had intercourse for approximately 3 months. She expresses concern about potential reinfection due to the missed dose. Travon reports weight gain and increased fatigue, which she attributes to her hypothyroidism and possibly the lamotrigine. She requests a thyroid function test to evaluate her current thyroid status. Constitutional: (+) weight gain, (+) fatigue Gastrointestinal: (+) vomiting Objective Blood pressure 114/79, pulse 75, temperature 36.7 C (98.1 F), weight 72.9 kg (160 lb 11.5 oz), last menstrual period 07/30/2024, SpO2 99%. GENERAL: NAD, alert and oriented SKIN: unremarkable, [...] intact, normal gait, no involuntary motions Labs: (Testing date not provided) - Blood test for chlamydia: Positive - Laboratory analysis for bacterial vaginosis: Positive - No anemia reported Assessment & Plan 1. Bipolar affective disorder, remission status unspecified (HCC) (F31.9) 2. Borderline personality disorder (HCC) (F60.3) Recent psychiatric hospitalization due to medication non-adherence and psychosocial stressors. Can not view notes, but suspect they diagnosed her with bipolar depression given decision to initiate lamotrigine. - Continue lamotrigine as prescribed; currently titrating dose upwards. Recommended she reestablish with her psychiatrist to discuss. - Educated on expected delayed onset of therapeutic effect. 3. Chlamydia (A74.9) 4. Bacterial vaginosis (N76.0) Recently completed 7-day course of doxycycline 100 mg BID for chlamydia and metronidazole for BV; one dose of doxycycline was vomited, but regimen otherwise completed. - Advised to wait until after January 22 (at least one month post-treatment) before retesting to avoid false positives from residual non-viable organisms. - Order for self-collected vaginal swab for chlamydia and gonorrhea to be performed at [facility] lab after January 22. - Advised to use condoms with any sexual partners until negative test results are confirmed. 5. Fatigue, unspecified type (R53.83) Fatigue and weight gain may be related to hypothyroidism, lamotrigine side effects, or other causes. - Order TSH, B12, and iron studies to evaluate for hypothyroidism, vitamin B12 deficiency, and iron deficiency anemia. Dr. Antionette Benitez DO Recording using [employer] software for draft documentation of the visit was discussed with the patient/authorized marketing development representative; all questions welcomed and answered. Patient/authorized marketing development representative agreed to proceed Hospital follow up from [facility] end november for mental health issues. STI questions (completed antibiotic recently) Thyroid questions due to fatigue. documented in this encounter [facility] 01-08-2025 Note HNO ID: [id number] Author: KRISHNA DAN MA Service: ? Author Type: Diet Aid Type: Progress Notes Filed: 01/08/2025 12:22 Note Text: Hospital follow up from [facility] end november for mental health issues. STI questions (completed antibiotic recently) Thyroid questions due to fatigue. [facility] 12-26-2024 History of Present illness Narrative Subjective Patient ID: Travon Stallworth is a 19 y.o. female. They present today with a chief complaint of Other (Patient states she was recently being treated for Chlamydia - taking Doxy X1 week . Patient states she is not noticing any improvement . Patient states she is unable to urinate . Patient states that she is having severe vaginal burning which is causing her not to be able to sit . Patient also complains of belly button pain . ). History of Present Illness According to the the patient's previous encounters, she was tested positive for chlamydia and BV on 12/19/2024. She was treated for chlamydia with doxycycline, however her symptoms did not improve. The patient left for the ER before this provider was able to speak to and assess her. History provided by: Patient certified court interpreter used: No Past Medical History Allergies as of 12/26/2024 - Reviewed 12/26/2024 Allergen Reaction Noted Ciprofloxacin Other and Palpitations 04/05/2024 Prescriptions Prior to Admission[1] Medical History[2] Surgical History[3] reports that she has been smoking cigarettes. She has never used smokeless tobacco. Review of Systems Review of Systems Objective Vitals: 12/26/24 1524 BP: (!) 159/114 BP Location: Left arm Patient Position: Sitting Pulse: (!) 117 Resp: 17 Temp: 36.8 C (98.2 F) TempSrc: Oral SpO2: 98% No LMP recorded. Physical Exam Procedures Point of Care Test & Imaging Results from this visit No results found for this visit on 12/26/24. Imaging No results found. Cardiology, Vascular, and Other Imaging No other imaging results found for the past 2 days Diagnostic study results (if any) were reviewed by LYNSEY Phan. Assessment/Plan Allergies, medications, history, and pertinent labs/EKGs/Imaging reviewed by LYNSEY Phan. Medical Decision Making Case Staffing Case does not need staffing per [facility] case staffing policy Orders and Diagnoses Diagnoses and all orders for this visit: Vaginal burning Medical Admin Record Patient disposition: Home Electronically signed by LYNSEY Phan 4:12 PM [1] (Not in a hospital admission) [2] History reviewed. No pertinent past medical history. [3] History reviewed. No pertinent surgical history. documented in this encounter [facility] Work Phone: 12-20-2024 Note Hospitalist Progress Note 12/20/2024 Subjective: Admit Date: 12/17/2024 PCP: Antionette Benitez DO Room#: S7-103/S7-103 A BRIEF HOSPITAL COURSE: Travon is a 19 y.o. female pmhx bipolar disorder who was recently seen at urgent care prior to admission to [facility] diagnosed with UTI for dysuria. She was started on an antibiotic, completed 5 days of the 7 and was notified that she didn't have a uti and to stop antibiotics. Secondary to the antibiotic she developed vaginal candidiasis and was treated with Diflucan x 2 doses. She has history of bacterial vaginosis. States that her current symptoms are just dysuria. Denies fever or chills. She is avoiding urinating because it hurts. She has had multiple sexual partners. Last partner was 3 months ago, who she thinks also has slept with multiple partners. She has + white vaginal discharge. USACS consulted for dysuria and vaginal discharge Interval History: Pts STD testing +chlamydia and vaginitis PCR +bacterial vaginosis. Urine culture (-). Pt is still c/o white malodorous fishy odor. Denies f/c/n/v/d, abd pain, dysuria. VSS, afebrile, tolerating PO intake well. No other overnight issues. Pt already placed on doxycycline, will add Flagyl. Case and plan discussed with patient and bedside nurse. All questions answered. REVIEW OF SYSTEMS A focused review of systems was performed and is negative except as stated in above HPI. Adult diet Regular 24HR INTAKE/OUTPUT: No intake or output data in the 24 hours ending 12/20/24 1717 Past Medical History: Medical History[1] LABS: CBC: Recent Labs 12/17/24 1842 WBC 7.9 RBC 4.88 HGB 14.2 HCT 42.7 MCV 87.5 RDW 11.9 PLT 338 BMP: Recent Labs 12/17/24 1842 NA 139 K 4.5 CL 104 CO2 27 BUN 15 CREATININE 1.00 GLUCOSE 95 CALCIUM 9.6 ANIONGAP 8 LIVER PROFILE: Recent Labs 12/17/24 1842 AST 20 ALT 10 BILITOT 0.3 ALKPHOS 87 PROT 7.5 PT/INR: No results for input(s): PROTIME , INR in the last 72 hours. CARDIAC ENZYMES: No results for input(s): TROPONINI in the last 72 hours. Procalcitonin: No results found for: PROCAL COVID-19 PCR: No results for input(s): COVID19 in the last 72 hours. Objective: Vitals: BP 117/77 (BP Location: Left arm, Patient Position: Sitting) Pulse 85 Temp 36.7 ?C (98.1 ?F) (Temporal) Resp 14 Ht 5' 4 (1.626 m) Wt 130 lb (59 kg) SpO2 100% BMI 22.31 kg/m? Pulse Ox: SpO2 Av.5 % Min: 99 % Max: 100 % Supplemental O2: Physical Exam Constitutional: General: She is not in acute distress. Appearance: She is normal weight. She is not ill-appearing or toxic-appearing. HENT: Head: Normocephalic. Right Ear: External ear normal. Left Ear: External ear normal. Nose: Nose normal. Mouth/Throat: Mouth: Mucous membranes are moist. Pharynx: Oropharynx is clear. Cardiovascular: Rate and Rhythm: Normal rate and regular rhythm. Pulses: Normal pulses. Heart sounds: Normal heart sounds. No murmur heard. No friction rub. No gallop. Pulmonary: Effort: Pulmonary effort is normal. No respiratory distress. Breath sounds: Normal breath sounds. No wheezing, rhonchi or rales. Abdominal: General: Abdomen is flat. Bowel sounds are normal. There is no distension. Palpations: Abdomen is soft. Tenderness: There is no abdominal tenderness. There is no right CVA tenderness, left CVA tenderness or guarding. Genitourinary: Comments: Vaginal exam deferred, per patient white discharge, fishy odor Musculoskeletal: General: Normal range of motion. Cervical back: Normal range of motion. Skin: General: Skin is warm and dry. Capillary Refill: Capillary refill takes less than 2 seconds. Neurological: General: No focal deficit present. Mental Status: She is alert and oriented to person, place, and time. Psychiatric: Comments: Calm, cooperative Medications: Scheduled PRN Scheduled Meds[2] PRN Meds[3] Continuous Continuous Meds[4] Assessment Data: (CAT1) Reviewed 3 or more notes from different specialty or health system (each=1). (CAT1) Reviewed 3 or more labs/studies ordered by another provider not previously counted (each=1, panels count as 1). (CAT1) Reviewed 3 or more labs/studies previously ordered by me not previously counted (each=1, panels count as 1). (CAT1) Ordered 3 or more new labs and/or studies (each=1, panels count as 1). (LOW: 2x CAT1 or independent historian MOD: 3x CAT1 or 1x CAT3 EXTENSIVE: 3x CAT1 and 1x CAT3) Acute, acute on chronic, unstable/uncontrolled chronic problems/diagnoses: Borderline Personality Disorder Other Cluster B Personality Traits Unspecified Eating Disorder, per history Chlamydia Bacterial vaginosis Stable chronic problems affecting care, new non-acute diagnoses: Hypothyroidism Plan As a result of the above findings & factors, the following mgmt was pursued: - continue mgmt per psychiatry - continue doxycyc (more content not included)... [facility] 12-20-2024 Note Discharge Summary Travon Stallworth : 2005 ADMIT DATE: 12/17/2024 DISCHARGE DATE: 12/20/2024 PRIMARY CARE PHYSICIAN: Antionette Benitez VISIT STATUS: Admission CODE STATUS: Full Code DISCHARGE DIAGNOSES: Principal Problem: Borderline personality disorder (CMS/HCC) ([facility]) Active Problems: Chlamydia Bacterial vaginosis Urinary tract infection Eating disorder, unspecified Hypothyroidism Active Problems: Borderline Personality Disorder Other Cluster B Personality Traits Unspecified Eating Disorder, per history Hypothyroidism Chlamydia Bacterial Vaginosis PER ADMISSION H&P ON 12/18/24 (Indicated Below in Italics): Travon Stallworth is a 19 year old female with past psychiatric history of borderline personality disorder, unspecified eating disorder, unspecified anxiety, and unspecified depression who presented to the ED brought by self for evaluation of suicidal ideation in the setting of significant life stressors and medication non-adherence. The patient is a 19 y.o. female, with past psychiatric history of borderline personality disorder, unspecified anxiety disorder, unspecified depressive disorder, and pertinent past medical history of hypertension and hypothyroidism who presented to the ED due to suicidal ideation, in the setting of medication non-adherence for the past 2-3 months. Workup in the ED was overall unremarkable. Patient was medically cleared and transferred to [facility]. On evaluation, Travon was seen participating in a group therapy session. She was pleasant on approach and agreeable to an interview. She states she has been going through a lot of difficult life transitions and has not been coping well. She is a senior in college, starting to think about her career after college, just started a new job to help pay for her tuition, and has a strained relationship with her mother. She states her parents have become helicopter parents , watching all of her movements with [employer] (phone tracking abi) and demanding to know every detail about her life. She states a lot of her anxiety comes from worrying about what her parents think about her. She is trying to become an adult , which includes more independence from her parents, but Travon states her mom is not taking that well. Travon states she knows she has difficulty coping to life stressors well due to my borderline , so she asked her cousin to drive her to the ED yesterday to scare myself into getting my life together . She explains that she has been admitted to psychiatric hospitals twice in the past, the first when she was under 16 for treatment of an eating disorder, and the most recent in 2021 for self harm behavior. She states both of these experiences were awful at the time, but did seem to make her better in thelong-term. She was hoping that this hospital admission would influence her to work on her coping skills and get back on medications. She stopped taking her psychiatric medications, including Abilify and Prozac, 2-3 months ago because they made her gain weight. She identifies strongly with the diagnosis of borderline personality disorder, stating she experiences emotional dysregulation, relationship instability, fear of abandonment, self harm under stress, and a loose sense of self. She endorsed recent thoughts of suicide by overdose on prescription medications, but denies any intent to act on these thoughts. She is interested in trying a new medication for mood stabilization, including Lamictal, and is motivated to participate in therapy. She denies any current or history of HI or AVH. HOSPITAL COURSE: Admitted to [facility] 7th floor - subacute psychiatry for further assessment, medication management, and therapeutic intervention. Daily vitals were taken. Regular diet was given. There were no contraindications for seclusions or restraints. Oriented to unit, including milieu, social work, and group therapies. The patient was monitored for general safety precautions in psychiatric setting. General internal medicine was consulted for general medical management. Routine inpatient psychiatric as needed medications were provided. Prior documentation and circumstances surrounding admission were reviewed. The patient was involved in verifying history as well as participating in treatment planning to the furthest extent possible. Psychiatric medications were started and dosed to final doses seen below. Medical issues were managed by internal medicine provider; please see separate documentation for all details pertinent to medical care. On day of discharge, patient denied any active psychiatric signs or symptoms significantly deviating from baseline function. Residual suicide/homicide/psychosis/viole nce/inability to care for self risk was at baseline (chronic risk), as maximization of inpatient psychiatry treatment benefit was achieved to address acute risks which initi (more content not included)... [facility] 12-20-2024 Telephone encounter Note Left patient a vm & my chart. If she calls, please let me know so I can talk to her. My extension on [employer] is [phone]. [facility] 12-20-2024 Miscellaneous Notes Left patient a vm & my chart. If she calls, please let me know so I can talk to her. My extension on [employer] is [phone]. documented in this encounter [facility] 12-19-2024 Note INPATIENT PSYCHIATRI C PROGRESS NOTE 12/19/24 Travon Stallworth was seen in follow up for suicidal ideation. On exam, patient is interviewed in conference room. She reports she is doing good today and slept well last night with a good breakfast this morning. She has really appreciated hospitalization and notes that she is learning a lot of new things in groups and has appreciated being able to talk to other patients. She shares that her parents want her to be discharged today, because life doesn't stop while I'm in here but patient does not feel ready for discharge just yet, though she denies any current SI/HI/AVH. She still feels overwhelmed with her parents expectations, though she shows future orientation with return back to school and outpatient follow up. Per RN report, patient complaining of dysuria and white vaginal discharge; patient denies no recent new sexual partners and denies concern for STI- ordered UA and USACS consult MEDICATIONS: Scheduled Meds[1] Continuous Meds[2] PRN Meds[3] MENTAL STATUS EXAM: Vitals : BP 124/81 Pulse 58 Temp 36.3 ?C (97.4 ?F) (Temporal) Resp 12 Ht 1.626 m (5' 4 ) Wt 59 kg (130 lb) SpO2 100% BMI 22.31 kg/m? Appearance: 19 year old female, appears younger than stated age, casually dressed Behavior: Appropriate, Cooperative, Interactive, Calm, and Pleasant Social Relatedness: Good Eye Contact and Appropriate to Evaluation Orientation: Grossly Oriented to Person, Place, and Time Speech/Language: The patient demonstrates appropriate tone, prosody, aayush, phonetics, and syntax Mood: good Affect: Euthymic and Appropriate to topic of conversation Thought Form: Logical, Coherent, Linear, Goal directed, No loosening of associations Thought Content: Does not appear to be internally stimulated, denies hallucinations, no evidence of delusions or ideas of reference Suicidal Ideations: No suicidal ideation, intent, or plan Homicidal Ideations: No homicidal ideation, intent or plan Insight: limited Judgment: fair Memory/Cognition: Appears to be grossly intact Psychomotor: Psychomotor activity within normal limits ROS: GENERAL: No spontaneous report of recent fever/chills, unexplained weight loss/gain, or night sweats. HEENT: No spontaneous report of changes in hearing or vision, oropharyngeal complaints, change in smell or nosebleeds. RESPIRATORY: No spontaneous report of recent new/worsening cough, wheezing or shortness of breath. CARDIOVASCULAR: No spontaneous report of new chest pain, leg swelling or palpitations. GI: No spontaneous report of recent abdominal discomfort, nausea, vomiting, diarrhea, or constipation. : No spontaneous report of recent change in frequency or incontinence. +dysuria, +vaginal discharge MUSCULOSKELETAL: No spontaneous report of new/worsening/change in joint pain or swelling, or muscle weakness. SKIN: No spontaneous report of new lesions, rash, or itching. HEMATOLOGY/LYMPHOLOGY: No spontaneous report of recent prolonged bleeding, bruising easily, or swollen nodes. ENDOCRINE: No spontaneous report of recent/new changes of cold or heat intolerance, polyuria, polydipsia or goiter. NEURO: No spontaneous report of new/worsening headaches, syncope, seizures or paralysis. ASSESSMENT: Travon Stallworth is a 19 year old female with past psychiatric history of borderline personality disorder, unspecified eating disorder, unspecified anxiety, and unspecified depression who presented to the ED brought by self for evaluation of suicidal ideation in the setting of significant life stressors and medication non-adherence. On today's evaluation, she reports she is doing good but still feels that she would benefit from another day of hospitalization as she has really enjoyed and learned a lot from groups. She is denying and current SI/HI/AVH, and is tolerating Lamictal well without side effect. Anticipate discharge tomorrow. Patient symptoms :are improving DIAGNOSIS: Borderline Personality Disorder Other Cluster B Personality Traits Unspecified Eating Disorder, per history Hypothyroidism Dysuria and Vaginal Discharge TREATMENT PLAN: #Borderline Personality Disorder #Other Cluster B Personality Traits -Continue Lamotrigine (Lamictal) 25 mg daily for mood stabilization, with planned continued titration -Travon will benefit most from consistent psychotherapy sessions, both during this admission and continued in the outpatient setting once acutely stabilized. If possible, she should participate in Dialectical Behavioral Therapy to target BPD. #Hypothyroidism -Continue home levothyroxine (Synthroid, Levoxyl) tablet 25 mcg daily #Dysuria and Vaginal Discharge - Ordered UA with reflex to culture - Internal medicine consult placed. Appreciate assessment and recommendations #General Admission Recommendations - Will continue to titrate medications and assess for effec (more content not included)... [facility] 12-18-2024 Note Problem: IP Depressi on Goal: LTG: Travon will demonstrate decreased symptoms of depression Outcome: Progressing Note: Patient out on unit, social with peers and watching television [facility] 12-18-2024 Note Department of Psychi atry History and Physical - Adult CHIEF COMPLAINT / REASON FOR ADMISSION: Suicidal Ideation Chief Complaint Patient presents with Suicidal Depressed x3 weeks non complaint with meds. Pt reports suicidal thoughts with plan to use medication Patient was seen after discussion with staff and reviewing the chart HISTORY OF PRESENT ILLNESS: The patient is a 19 y.o. female, with past psychiatric history of borderline personality disorder, unspecified anxiety disorder, unspecified depressive disorder, and pertinent past medical history of hypertension and hypothyroidism who presented to the ED due to suicidal ideation, in the setting of medication non-adherence for the past 2-3 months. Workup in the ED was overall unremarkable. Patient was medically cleared and transferred to [facility]. On evaluation, Travon was seen participating in a group therapy session. She was pleasant on approach and agreeable to an interview. She states she has been going through a lot of difficult life transitions and has not been coping well. She is a senior in college, starting to think about her career after college, just started a new job to help pay for her tuition, and has a strained relationship with her mother. She states her parents have become helicopter parents , watching all of her movements with [employer] (phone tracking abi) and demanding to know every detail about her life. She states a lot of her anxiety comes from worrying about what her parents think about her. She is trying to become an adult , which includes more independence from her parents, but Travon states her mom is not taking that well. Travon states she knows she has difficulty coping to life stressors well due to my borderline , so she asked her cousin to drive her to the ED yesterday to scare myself into getting my life together . She explains that she has been admitted to psychiatric hospitals twice in the past, the first when she was under 16 for treatment of an eating disorder, and the most recent in 2021 for self harm behavior. She states both of these experiences were awful at the time, but did seem to make her better in thelong-term. She was hoping that this hospital admission would influence her to work on her coping skills and get back on medications. She stopped taking her psychiatric medications, including Abilify and Prozac, 2-3 months ago because they made her gain weight. She identifies strongly with the diagnosis of borderline personality disorder, stating she experiences emotional dysregulation, relationship instability, fear of abandonment, self harm under stress, and a loose sense of self. She endorsed recent thoughts of suicide by overdose on prescription medications, but denies any intent to act on these thoughts. She is interested in trying a new medication for mood stabilization, including Lamictal, and is motivated to participate in therapy. She denies any current or history of HI or AVH. Medications Prior to Admission: Current Outpatient Medications Medication Instructions levothyroxine (SYNTHROID, LEVOXYL) 25 mcg, Daily before breakfast Compliance: good PSYCHIATRIC REVIEW OF SYSTEMS: (Negative if unchecked) Constitutional [x] Change in appetite/weight [] Change in sleep Mood: [] Anhedonia [] Decreased/low mood [] Worthlessness/Guilt [] Hopeless/Helpless [] Decreased energy [] Decreased concentration [x] Suicidal Ideation Anxiety: [] Excessive worry/difficulty controlling worry [x] Irritability [] Restlessness [] Easily fatigued [x] Difficulty concentrating [] Obsessions [] Palpitations/Chest pain [] Diaphoresis [] Shortness of breath [] Trembling/shaking [] Sense of doom/fear of dying [x] Agoraphobia [] Derealization/Depersonalization PTSD: [] Nightmares [] Flashbacks [] Avoidance [] Hyperarousal [] Hypervigilance Bea: [] Inflated self esteem/grandiosity [] Elevated energy [] Decreased need for sleep [] Talkative/rapid/pressured speech [] Flight of ideas/racing thoughts [] Distractibility [] Increased goal directed activity [] Risky behaviors/activities [] Irritability [] Psychomotor agitation Psychosis: [] Auditory hallucinations [] Visual hallucinations [] Tactile hallucinations [] Delusions [] Disorganized speech [] Paranoia Cluster B Traits: See HPI PSYCHIATRIC HISTORY: Previous Diagnoses: Borderline personality disorder, unspecified eating disorder, unspecified anxiety and depression Current Psychiatrist: Follows virtually [place] psychiatrist from [place] ([place], [place]) Current Therapist: Follows virtually with a therapist from her hometown ([place], [place]) Total Previous Hospitalizations: 2 Last Hospitalization: 2021 for intentional self harm History of Suicide Attempts: Total: 0 History of Self-Harming Behaviors: History of cutting and hair pulling Trauma History: - Emotional Trauma: Unstable relationships, overbearing parents (more content not included)... [facility] 12-18-2024 Note NEW ADMISSION Problem: IP Depression Goal: LTG: Travon will demonstrate decreased symptoms of depression Outcome: Not Progressing Goal: LTG: Travon will exhibit compliance with therapy Outcome: Not Progressing [facility] 12-04-2024 History of Present illness Narrative Subjective Patient ID: Travon Stallworth is a 19 y.o. female. They present today with a chief complaint of burning with urination. History of Present Illness HPI a 19-year-old female arrives to clinic with chief complaint of burning upon urination. The patient reports having the symptoms over the last 3 to 4 days. She reports that she just recently finished antibiotics for a yeast infection. She is here for evaluation. Past Medical History Allergies as of 12/04/2024 - Reviewed 12/04/2024 Allergen Reaction Noted Ciprofloxacin Other and Palpitations 04/05/2024 Prescriptions Prior to Admission[1] Medical History[2] Surgical History[3] reports that she has been smoking cigarettes. She has never used smokeless tobacco. Review of Systems Review of Systems Constitutional: Positive for activity change. Genitourinary: Positive for dysuria, frequency and urgency. Objective Vitals: 12/04/24 1637 BP: 106/76 Pulse: 68 Resp: 16 Temp: 36.3 C (97.4 F) SpO2: 99% No LMP recorded. Physical Exam Constitutional: Appearance: Normal appearance. She is normal weight. Neurological: Mental Status: She is alert. No CVA tenderness Procedures Point of Care Test & Imaging Results from this visit Results for orders placed or performed in visit on 12/04/24 POCT UA Automated manually resulted Result Value Ref Range POC Color, Urine Yellow Straw, Yellow, Light-Yellow POC Appearance, Urine Clear Clear POC Glucose, Urine NEGATIVE NEGATIVE mg/dl POC Bilirubin, Urine NEGATIVE NEGATIVE POC Ketones, Urine NEGATIVE NEGATIVE mg/dl POC Specific Bentley, Urine 1.015 1.005 - 1.035 POC Blood, Urine NEGATIVE NEGATIVE POC PH, Urine 6.5 No Reference Range Established PH POC Protein, Urine NEGATIVE NEGATIVE mg/dl POC Urobilinogen, Urine 0.2 0.2, 1.0 EU/DL Poc Nitrite, Urine NEGATIVE NEGATIVE POC Leukocytes, Urine MODERATE (2+) (A) NEGATIVE POCT , urine manually resulted Result Value Ref Range Preg Test, Ur Negative Negative POCT BV Blue Rapid - Bacterial Vaginitis manually resulted Result Value Ref Range POC Bacterial Vaginitis (Rapid) Negative Negative Imaging No results found. Cardiology, Vascular, and Other Imaging No other imaging results found for the past 2 days Diagnostic study results (if any) were reviewed by LYNSEY Diop. Assessment/Plan Allergies, medications, history, and pertinent labs/EKGs/Imaging reviewed by LYNSEY Diop. Medical Decision Making Urinalysis was positive for leukocytes. Urine culture sent at [facility]. We will call with any abnormal results. The patient would like to have a rapid BV test as well. That 2 was negative in addition to her urine . Macrobid 100 mg oral tablet twice daily for 7 days has been sent in addition to Diflucan once again. Follow-up with your primary care provider. The patient agrees to the plan of care was discharged stable condition. As a result of the work-up, the patient was discharged home. she was informed of her diagnosis and instructed to come back with any concerns or worsening of condition. she and was agreeable to the plan as discussed above. she was given the opportunity to ask questions. All of the patient's questions were answered. This document was generated using the assistance of voice recognition software. If there are any errors of spelling, grammar, syntax, or meaning; please feel free to contact me directly for clarification. Orders and Diagnoses Diagnoses and all orders for this visit: Acute cystitis without hematuria Burning with urination - Urine Culture - POCT UA Automated manually resulted - POCT , urine manually resulted - POCT BV Blue Rapid - Bacterial Vaginitis manually resulted - nitrofurantoin, macrocrystal-monohydrate, (Macrobid) 100 mg capsule; Take 1 capsule (100 mg) by mouth 2 times a day for 7 days. - fluconazole (Diflucan) 150 mg tablet; Take 1 tablet (150 mg) by mouth see administration instructions for 1 day. Take one tab now. Repeat in 7 days if symptoms persist. Medical Admin Record Patient disposition: Home Electronically signed by LYNSEY Diop 5:17 PM [1] (Not in a hospital admission) [2] History reviewed. No pertinent past medical history. [3] History reviewed. No pertinent surgical history. documented in this encounter [facility] Work Phone: 10-28-2024 Miscellaneous Notes lvm to call office/appt today at 115 for reswab due to insufficient cells on vnap documented in this encounter [employer] 10-28-2024 Telephone encounter Note lvm to call office/appt today at 115 for reswab due to insufficient cells on vnap [facility] 10-28-2024 Miscellaneous Notes having discharge and odor; vnap says indeterminate. wondering if needs another swab or if you could send something in Really should have another swab unfortunately documented in this encounter [facility] 10-28-2024 Telephone encounter Note having discharge and odor; vnap says indeterminate. wondering if needs another swab or if you could send something in [facility] 10-28-2024 Telephone encounter Note Really should have another swab unfortunately [facility] 10-25-2024 History of Present illness Narrative Subjective Patient ID: Travon Stallworth is a 19 y.o. female. They present today with a chief complaint of was here yesterday, wants covid test. History of Present Illness C/O continued sore throat that started after oral sex with new partner. Yesterday had STI testing done with enologist, no results yet. Was also seen in [...] study results (if any) were reviewed by LYNSEY Donohue. Assessment/Plan Allergies, medications, history, and pertinent labs/EKGs/Imaging reviewed by LYNSEY Donohue. Medical Decision Making Signs and symptoms consistent with acute viral pharyngitis without evidence of CREATIVE ARTS MUSIC THERAPIST, mono, deep neck infection, or sepsis. Negative Rapid strep in office. Will treat with supportive measures. Patient is encouraged to return to clinic if symptoms worsen and will otherwise follow with PCP. Patient had STD testing per RAIL DOWELING MACHINE OPERATOR yesterday, due to high risk sexual behavior. [...] history on file. documented in this encounter [facility] Work Phone: 10-25-2024 Instructions LYNSEY Donohue - 10/25/2024 9:20 AM EDT Signs and symptoms consistent with acute viral pharyngitis without evidence of CREATIVE ARTS MUSIC THERAPIST, mono, deep neck infection, or sepsis. Negative Rapid strep in office. Will treat with supportive measures. Patient is encouraged to return to clinic if symptoms worsen and will otherwise follow with PCP. Patient had STD testing per RAIL DOWELING MACHINE OPERATOR yesterday, due to high risk sexual behavior. Deferring treatment if needed to Gynecology since testing completed there. Discussed importance of safe sexual practices with every sexual encounter: condom use, abstinence documented in this encounter [facility] Work Phone: 10-24-2024 History of Present illness Narrative Chief Complaint: Chief Complaint Patient [...] History: Diagnosis Date Anxiety Borderline personality disorder ([facility]) Depression Hypertension Hypothyroidism Tachycardia OB History 0 [...] Resource Strain: Patient Declined (05/05/2024) Received from [facility] Overall Financial Resource Strain (CARDIA) Difficulty of Paying Living Expenses: Patient declined Food Insecurity: No Food Insecurity (06/19/2024) Hunger Screening Food Insecurity - Worry: Never True Food Insecurity - Inability: Never True Transportation Needs: No Transportation Needs (05/05/2024) Received from [facility] PRAPARE - Transportation Lack of Transportation (Medical): No Lack of Transportation (Non-Medical): No Physical Activity: Inactive (05/05/2024) Received from [facility] Exercise Vital Sign Days of Exercise per Week: 0 days Minutes of Exercise per Session: 0 min Stress: Stress Concern Present (05/05/2024) Received from [facility] [employer] - Occupational Stress Questionnaire Feeling of Stress : Very much Social Connections: Unknown (05/05/2024) Received from [facility] Social Connection and Isolation Panel [NHANES] Frequency of Communication with Friends and Family: Patient declined Frequency of Social Gatherings with Friends and Family: Twice a week Attends Moravian Services: Patient declined Active Member of Clubs or Organizations: No Attends Club or Organization Meetings: Patient declined Marital Status: Never Interpersonal Safety: Not on file Housing Instability: Unknown (05/05/2024) Received from [facility] Housing Stability Vital Sign Unable to [...] 10/24/24 2:49 PM documented in this encounter [facility] 10-24-2024 History of Present illness Narrative Subjective Patient ID: Travon Stallworth [...] POCT SPOTFIRE R/ST Panel Mini w/Strep [facility] ([facility] manually resulted Result Value Ref Range POC [...] POCT SPOTFIRE R/ST Panel Mini w/Strep A ([facility]) manually resulted Medical Admin Record Patient disposition: Home Electronically signed by Fabby Bo PA-C 9:17 AM [1] (Not in a hospital admission) [2] No past medical history on file. [3] No past surgical history on file. documented in this encounter [facility] Work Phone: 10-13-2024 Miscellaneous Notes Yvan 06/19/24 documented in this encounter [facility] [email or web address] 10-13-2024 Telephone encounter Note Yvan 06/19/[address] [facility] 09-21-2024 History of Present illness Narrative Subjective Patient ID: Travon Stallworth [...] Ketones, Urine NEGATIVE NEGATIVE mg/dl POC Specific Bentley, Urine 1.020 1.005 - 1.035 POC Blood, [...] follow-up with her primary care provider or enologist. Patient verbalized understanding and was agreeable with [...] history on file. documented in this encounter [facility] Work Phone: 08-29-2024 History of Present illness Narrative Anayeli Carnes is a 18-year-old [...] the menstrual period. - Recommended performing an kseg-pzx-jroqzbg test if the period is delayed. - Discussed the possibility of false-negative results if testing is done too early. - Informed about legality and presence of reproductive services in [place] if needed. Dr. Antionette Benitez DO Recording using [employer] software for draft documentation of the visit was discussed with the patient/authorized marketing development representative; all questions welcomed and answered. Patient/authorized marketing development representative agreed to proceed documented in this encounter [facility] 08-29-2024 Note HNO ID: [id number] Author: ANTIONETTE BENITEZ DO Service: ? Author [...] the menstrual period. - Recommended performing an erbo-gaa-taqzgjt test if the period is delayed. - Discussed the possibility of false-negative results if testing is done too early. - Informed about legality and presence of reproductive services in [place] if needed. Dr. Antionette Benitez, DO Recording using [employer] software for draft documentation of the visit was discussed with the patient/authorized marketing development representative; all questions welcomed and answered. Patient/authorized marketing development representative agreed to proceed [facility] 08-22-2024 Evaluation note Diagnosis Onset Date Resolution Bacterial pharyngitis acute August 22, 2024 6:24pm Possible exposure to STI acute August 22, 2024 6: 24pm [facility] Work Phone: 1(189) 415-233705-01-2025 Evaluation note* Diagnosis Onset Date Resolution Status Admit Date Bacterial pharyngitis acute August 22, 2024 6:24pm Possible exposure to STI acute August 22, 2024 6:24pm URI (upper respiratory infection) noneactive October 28, 2024 9 :08am [facility] Work Phone: 1(858) 207-405004-21-2025 History of Present illness Narrative* BRYN Courtney - 08/12/2024 9:20 AM EDT Images from the original note were not included. Chief complaint: Syncope Subjective Travon Warrenchristina, 18 y.o., female SEIZURE LIKE EPISODES/SYNCOPE -MRI [...] Past Medical History: Diagnosis Date Anxiety Depression ([facility]) Hypothyroidism ([facility]) No past surgical history on file. No [...] , wrist extensors , wrist flexor , fixed income director strength 5/5. LUE Strength deltoid , biceps , triceps , wrist extensors , wrist flexor , fixed income director strength 5/5. RLE Strength illopsoas, quadriceps, tibialis [...] reflex 2+ . King's sign negative. Coordination: Iqsirn-dy-vvyj testing and rapid alternating movements are normal [...] and all orders for this visit: Seizure ([facility]) It is my impression that the patient [...] that she had withdrawal from college at [employer]. However, we need to exclude any [...] symptoms. -I will reach out to patient's continuous mining machine operator regarding possible tilt table test -I do [...] and Cardiology. Patient is seen Cardiology at [place]. Pt has been fully educated on their diagnosis, lab results, treatment options, follow up plan, return instructions, and discussion of mental health issues documented in this [facility]03-27-2025 Telephone encounter Note* Telephone Encounter - Jill Friedman NP - 07/18/2024 9:27 AM EDT Call placed to the patient to see when her brain MRI is scheduled due to her follow up appointment to review being on Monday. Message left for the patient to return [place]. [facility]: 1(938) 878-596503-27-2025 Miscellaneous Notes* Telephone Encounter - Jill Friedman NP - 07/18/2024 9:27 AM EDT Call placed to the patient to see when her brain MRI is scheduled due to her follow up appointment to review being on Monday. Message left for the patient to return [place]. documented in this [facility]03-17-2025 NoteHNO ID: [id number] Author: ANTIONETTE BENITEZ, DO Service: ? Author [...] No spinous process tenderness. Dr. Antionette Benitez, [facility] History of Present illness Narrative* Antionette Benitez, - 07/08/2024 4:00 PM EDT ASSESSMENT/PLAN: 1. [...] Dr. Antionette Benitez DO [facility] encounter Note * Telephone Encounter - Ashley Warren - 07/07/2024 10:37 AM EDT Patient is coming in Monday to see Dr. Benitez. She didn't want to [facility] to [facility]03-16-2025 Miscellaneous Notes* Telephone Encounter - Ashley Warren - 07/07/2024 10:37 AM EDT Patient is coming in Monday to see Dr. Benitez. She [facility]'t [facility] to [facility] to [facility] Telephone encounter Note * Telephone Encounter - Stefani Jeronimo LPN - 06/27/2024 7:41 AM EST Patient phones requesting refills as follows: Last OV 05/07/2024 Requested Prescriptions Pending Prescriptions Disp Refills levothyroxine (SYNTHROID) 25 mcg tablet [Pharmacy Med Name: LEVOTHYROXINE 25 MCG TABLET] 30 tablet 2 Sig: TAKE 1 TABLET BY MOUTH EVERY DAY Please review and advise. Stefani Jeronimo LPN [facility]03-06-2025 Miscellaneous Notes* Telephone Encounter - Stefani Jeronimo LPN - 06/27/2024 7:41 AM EST Patient phones requesting refills as follows: Last OV 05/07/2024 Requested Prescriptions Pending Prescriptions Disp Refills levothyroxine (SYNTHROID) 25 mcg tablet [Pharmacy Med Name: LEVOTHYROXINE 25 MCG TABLET] 30 tablet 2 Sig: TAKE 1 TABLET BY MOUTH EVERY DAY Please review and advise. Stefani Jeronimo LPN [facility] History of Present illness Narrative* Ian [...] Chief Complaint Patient presents with New Patient FIRE LOOKOUT SELF REF SYNCOPE PER DR ELI GUTHRIE [...] History: Diagnosis Date Anxiety Borderline personality disorder ([facility]) Depression Hypothyroidism Tachycardia No data recorded No [...] Resource Strain: Patient Declined (05/05/2024) Received from [facility] Overall Financial Resource Strain (CARDIA) Difficulty of Paying Living Expenses: Patient declined Food Insecurity: No Food Insecurity (06/19/2024) Hunger Screening Food Insecurity - Worry: Never True Food Insecurity - Inability: Never True Transportation Needs: No Transportation Needs (05/05/2024) Received from [facility] PRAPARE - Transportation Lack of Transportation (Medical): No Lack of Transportation (Non-Medical): No Physical Activity: Inactive (05/05/2024) Received from [facility] Exercise Vital Sign Days of Exercise per Week: 0 days Minutes of Exercise per Session: 0 min Stress: Stress Concern Present (05/05/2024) Received from [facility] [employer] - Occupational Stress Questionnaire Feeling of Stress : Very much Social Connections: Unknown (05/05/2024) Received from [facility] Social Connection and Isolation Panel [NHANES] Frequency of Communication with Friends and Family: Patient declined Frequency of Social Gatherings with Friends and Family: Twice a week Attends Moravian Services: Patient declined Active Member of Clubs or Organizations: No Attends Club or Organization Meetings: Patient declined Marital Status: Never Interpersonal Safety: Not on file Housing Instability: Unknown (05/05/2024) Received from [facility] Housing Stability Vital Sign Unable to [...] EM order placed. Pt was given the [employer] handout and pattern chart writer reviewed EM information. [facility] Miscellaneous Notes* Telephone Encounter - Ashley Novak CMA - 06/18/2024 2:49 PM EST Left message for patient to remind them to bring their most current medication list with them to their appointment. [facility] Telephone encounter Note* Telephone Encounter - Ashley Novak CMA - 06/18/2024 2:49 PM EST Left message for patient to remind them to bring their most current medication list with them to their appointment. [facility]02-18-2025 History of Present illness Narrative* Antionette [...] visit. Either the patient or their legal marketing development representative has been informed of the risks and benefits of -- and alternatives to -- treatment through a remote evaluation andconsents to proceed with the evaluation remotely. Provider Location: [place] Patient Location: [place] CC: Patient presents with: Syncope HPI: Travon [...] the date of the service which included vxpt-mf-cnzf patient care, completing clinical documentation, obtaining and/or reviewing separately obtained history, performing a medically appropriate examination, counseling and educating the patient/family/caregiver, and ordering medications, tests, or procedures. SIGNATURE: ANTIONETTE BENITEZ DO DATE: June 11, 2024 [facility]25 NoteHNO ID: [id number] Author: ANTIONETTE BENITEZ DO Service: ? Author [...] visit. Either the patient or their legal marketing development representative has been informed of the risks and benefits of -- and alternatives to -- treatment through a remote evaluation and consents to proceed with the evaluation remotely. Provider Location: [place] Patient Location: [place] CC: Patient presents with: Syncope HPI: Travon [...] the date of the service which included atrb-pj-ukhm patient care, completing clinical documentation, obtaining and/or reviewing separately obtained history, performing a medically appropriate examination, counseling and educating the patient/family/caregiver, and ordering medications, tests, or procedures. SIGNATURE: ANTIONETTE BENITEZ, DO DATE: June 11[facility]02-[facility] History of Present illness Narrative* Myesha Caceres, DO - 06/04/2024 9:30 AM EST Images from [...] Past Medical History: Diagnosis Date Anxiety Depression (CMS/HCC) Hypothyroidism (CMS/HCC) History reviewed. No pertinent surgical [...] , wrist extensors , wrist flexor , fixed income director strength 5/5. LUE Strength deltoid , biceps , triceps , wrist extensors , wrist flexor , fixed income director strength 5/5. RLE Strength illopsoas, quadriceps, tibialis [...] reflex 2+ . King's sign negative. Coordination: Zbkxrn-sy-bboa testing and rapid alternating movements are normal [...] and all orders for this visit: Seizure ([facility]) It is my impression that the patient [...] that she had withdrawal from college at [employer]. However, we need to exclude any [...] and Cardiology. Patient is seen Cardiology at [place]. Patient's mother accompanied the patient tothe visit today and was understanding and agreeable with the seizure precautions and plan. Pt has been fully educated on their diagnosis, lab results, treatment options, follow up plan, return instructions, and discussion of mental health issues documented in this encounterSelect [facility]ty [id number] Instructions* Patient Instructions* Antionette Benitez DO - 05/07/2024 4:48 PM EST 1) Start levothyroxine 25 mcg daily. We'll take in morning 30 minutes before eating other food or medications. 2) We'll take naproxen 500 mg as needed at bedtime for severe headaches. Can use 3-4 times per week. 3) Schedule follow-up with cardiology. 4) Follow-up virtually in one month. [facility]-2025 NoteHNO ID: [id number] Author: ANTIONETTE BENITEZ, DO Service: ? Author [...] left trapezius insertion/left occiput. Dr. Antionette Benitez, DOCCoshoct[facility]01-14-2025 History of Present illness Narrative* Antionette Benitez DO - 05/07/2024 4:24 PM EST ASSESSMENT/PLAN: [...] Dr. Antionette Benitez DO [facility] Evaluation + Plan note Extracted from: Title:ED Note Author:Hermelindo Howard DOCandice Date :04/21/24 Chest pain (R07.9: Chest mac n, unspecified) Palpitations (R00.2: Palpitations) Syncope (R55: Syncope and collapse) Orders: Basic Metabolic Panel CBC w/ Auto Diff D-Dimer ED Cardiac Monitoring eGFR Oxygen Saturation Oxygen Therapy PT & PTT Saline Lock Insert Troponin 0 Hr. Troponin 1 Hr. [facility] [id number] Hospital Discharge instructions Patient Education 04/21/2024 01:16:12 [...] Follow these instructions at home: Medicines Take ughf-ada-vkcwqle and prescription medicines only as told by [...] provider. Document Revised: 02/23/2023 Document Reviewed: 02/23/2023 [employer] Patient Education 2023 [employer]. 04/21/2024 01:16:12 Syncope, Adult Syncope, Adult Syncope [...] you until you feel stable. Medicines Take crbj-kev-ofggpae and prescription medicines only as told by [...] provider. Document Revised: 08/19/2021 Document Reviewed: 08/19/2021 [employer] Patient Education 2023 [employer]. Follow Up Care 04/20/2024 22:52:49 With:Ernst Danielson Address: [place] [address] [employer] [address] [place] [id number] Business (1) When:04/26/2024 [facility] 12-29-2024 NoteED Patient Education Note Neurology [...] until you feel stable. Medicines ??? Take ovyg-oiy-qdkrvea and prescription medicines only as told by [...] provider. Document Revised: 08/19/2021 Document Reviewed: 08/19/2021 [employer] Patient Education ? 2023 [employer] Pulmonary Medicine Nonspecific Chest Pain, Adult Chest pain is an uncomfortable, tight, or painful feeling in the chest. The pain can feel like a crushing, aching, or squeezing pressure. A person can feel a burning or tingling sensation. Chest paincan also be felt in your back, neck, jaw, shoulder, or arm. Th (more content not included)...[facility]12-20-2024 NoteHNO ID: [id number] Author: MARIANGEL VILLARREAL LPN Service: ? Author Type: LICENSED NURSE Type: Progress Notes Filed: 04/12/2024 13:22 Note Text: Patient returned holter monitor. Testing completed without incident Cassette processed per protocol. [facility] History of Present illness Narrative* Mariangel Villarreal LPN - 04/12/2024 12:45 PM EST Patient returned holter monitor. Testing completed without incident Cassette processed per protocol. Diary faxed Mariangel Villarreal LPN [facility] Telephone encounter Note * Telephone Encounter - Benjy Adhikari - 04/08/2024 9:29 AM EST Called and scheduled patient for 04/10. [facility]12[facility]16[facility] Miscellaneous Notes* Telephone Encounter - Benjy Adhikari - 04/08/2024 9:29 AM EST Called and scheduled patient for 04/10. * Telephone Encounter - Vanda Fritz - 04/05/2024 3:43 PM EST Jen at [facility] [address] office Needing to bee set up with a 48 hour Holter Monitor Please call the patient at the home number confirmed by the office [facility] Telephone encounter Note * Telephone Encounter - Vanda Fritz - 04/05/2024 3:43 PM EST Jen at [facility] [address] office Needing to bee set up with a 48 hour Holter Monitor Please call the patient at the home number confirmed by the office [facility]12-13-2024 NoteHNO ID: [id number] Author: ANTIONETTE BENITEZ DO Service: ? Author [...] symmetric. Sensation grossly intact.. Dr. Antionette Benitez, [facility]12[facility] History of Present illness Narrative* Antionette Benitez [...] and symmetric. Sensation grossly intact.. Dr. Antionette Benitez DO [facility] Hospital Discharge instructions* Discharge Instructions* Leeroy [...] * Urinary Tract Infection Discharge Instructions, Adult (Persian) documented in this [facility]11-23-2024 Emergency department Note* Leeroy Garay DO - [...] amenorrhea. This is abnormal for her as usuallyshe has regular cycles every month. Otherwise has [...] DO Resident 03/16/24 0628 Cosigned by Roney Abdi DO at 03/16/2024 8:30 AM EST documented in this [facility]11-23-2024 Physician Emergency department Note* Leeroy Garay DO - [...] Garay DO Resident 03/16/24627 Cosigned by Roney Abdi DO at 03/16/2024 8:30 AM EST [id number] History of Present illness Narrative* Kalyn Gilman [...] Use of benign bath wash * Kalyn Gilman DO - 11/30/2023 2:45 PM EDT Subjective: [...] staying asleep). School Current school district is [employer] ([employer]). Child is performing acceptably [...] Reactions No Known Drug Allergies SPECIALISTS : [facility] The following portions of the patient's [...] attempt was 2 years ago Assessment: Well adolescentCandice Carnes was seen today for rash. Diagnoses and [...] awaiting labsand skin update documented in [facility] Hospital Discharge instructions* Activity:activity as tolerated. May shower. May return to school/work Instructions:. May drive. * Follow Up Appointment 1:Physician/Dept/Service: Dr. Jorgito Coyle MD/PsychiatrisstScheduled Date/Time: 12-Jan-2022 09:30Location: [facility], [address] [place] [id number] Number: [phone]; FAX [phone]: THIS IS A VIRTUAL APPOINTMENT * Follow Up Appointment 2:Physician/Dept/Service: [facility] [address] [place], [place] [address]Phone Number: [phone]; FAX [phone]: I HAD TO LEAVE A MESSAGE FOR YOUR COUNSELOR RE; YOUR NEXT VIRTUAL APPOINTMENT; PLEASE CALL SANKET TO CONFIRM YOUR APPOINTMENT * Follow Up Appointment 3:Physician/Dept/Service: Michelle De Anda/CounselorReason for Referral: DBT CounselorLocation: [place]Phone Number: [phone]: CALL TO SEE ABOUT AN APPOINTMENT * Follow Up Appointment 4:Physician/Dept/Service: [facility] GroupLocation: [place]Phone Number: [phone]: THEY HAVE A GREAT ONLINE DBT IOP GROUP THAT YOU WOULD LOVE; GIVE THEM A CALL FOR MORE INFORMATION [facility] note* Affect: blunted at timesJudgment: needs [...] homicidal ideation, no delusions elicited.Insight: needs improvement [facility] note* Diagnosis Acute cystitis with hematuria- Primary Pyelonephritis Unspecified pyelonephritis documented in this encounter [facility] [place] [facility]* Diagnosis Elevated blood pressure reading without diagnosis of hypertension Palpitations documented in [facility]* Diagnosis Palpitations- Primary documented in this [facility]* Diagnosis Vasovagal syncope- Primary Syncope and collapse Sinus tachycardia Other specified cardiac dysrhythmias Subclinical hypothyroidism Other specified acquired hypothyroidism Cervicogenic headache Headache Borderline personality disorder (HCC) Borderline personality disorder documented in this encounter [facility] note* Diagnosis Palpitations- Primary Borderline personality disorder (HCC) Borderline personality disorder Elevated blood pressure reading without diagnosis of hypertension Palpitations documented in this encounter [facility] note* Diagnosis Seizure (CMS/HCC)- Primary Other convulsions Anxiety Anxiety state, unspecified documented [facility] [place] [facility]* Diagnosis Well adult exam- Primary Routine general medical examination at a health care facility Atopic neurodermatitis Need for vaccination Need for prophylactic vaccination and inoculation against unspecified single disease documented [facility] this [facility]* Diagnosis Subclinical hypothyroidism- Primary Other specified acquired hypothyroidism Vasovagal syncope Syncope and collapse Seizure-like activity (HCC) Other convulsions documented in this encounter [facility] [place] [facility]* Diagnosis Cervicogenic headache Headache documented in this encounter [facility] [place] [facility]* Diagnosis Syncope, unspecified syncope type- Primary Palpitations documented in this encounter [facility] [place] [facility]* Diagnosis Subclinical hypothyroidism Other specified acquired hypothyroidism documented in this encounter [facility] [place] [facility]* Diagnosis Right flank pain- Primary Abdominal pain, unspecified site Vaginal discharge Leukorrhea, not specified as infective documented in this encounter [facility] [place] noteNo assessment information availableAdena Health System Work Phone: Evaluation note* Diagnosis Seizure (CMS/HCC)- Primary Other convulsions Anxiety Anxiety state, unspecified documented in this encounter [facility] [place] [facility]* Diagnosis Onset Date Resolution Status Admit Date Bacterial pharyngitis acute August 22, 2024 6:24pm Possible exposure to STI acute August 22, 2024 6:24pm [facility] Work Phone: Evaluation note* Diagnosis Bacterial vaginosis- Primary Vaginitis and vulvovaginitis, unspecified documented in this encounter [facility] [place] [facility]* Diagnosis Vaginal discharge- Primary Leukorrhea, not specified as infective Dysuria documented in this encounter [facility] Work Phone: Evaluation note* Diagnosis Elevated blood pressure reading without diagnosis of hypertension- Primary Missed period Irregular menstrual cycle documented in this encounter [facility] [place] [facility]* Diagnosis Viral URI- Primary Acute upper respiratory infections of unspecified site Sore throat Acute pharyngitis documented in this encounter [facility] Work Phone: Evaluation note* Diagnosis Well woman exam with routine gynecological exam- Primary Routine gynecological examination Burning with urination Dysuria Encounter for test, result unknown Unprotected sexual intercourse Problems related to high-risk sexual behavior documented in this encounter [facility]* Diagnosis Sore throat- Primary Acute pharyngitis Suspected COVID-19 virus infection documented in this encounter [facility] Work Phone: Evaluation note* Diagnosis Acute cystitis without hematuria- Primary Burning with urination Dysuria documented in this encounter [facility] Work Phone: Evaluation note* Diagnosis Vaginal burning- Primary Other specified symptom associated with female genital organs documented in this encounter [facility] Work Phone: Evaluation note* Diagnosis Bipolar affective disorder, remission status unspecified (HCC)- Primary Borderline personality disorder (HCC) Borderline personality disorder Chlamydia Unspecified chlamydial infection, in conditions classified elsewhere and of unspecified site Bacterial vaginosis Vaginitis and vulvovaginitis, unspecified Fatigue, unspecified type documented in this encounter [facility] Narrative No data available for this section [facility] InstructionsNot on filedocumented in this encounter [facility] SystemInstructionsNot on filedocumented in this encounter [facility] SystemInstructionsNot on filedocumented in this encounter [facility] SystemInstructionsNot on filedocumented in this encounter [facility] SystemInstructionsNot on filedocumented in this encounter [facility] SystemInstructions* Attachments The following attachments cannot be sent through Care Everywhere. * _Upper Respiratory Infection (URI), [facility] (Persian) [facility] Work Phone: InstructionsNot on filedocumented in this encounter [facility] SystemInstructionsNot on filedocumented in this encounter [facility] SystemProgress note No data available for this section [facility] Reason for referral (narrative)* Outpatient Procedure (Routine) - New Request Specialty Diagnoses / Procedures Referred By Tolu t Referred To [facility] Diagnoses Elevated blood pressure reading without diagnosis of hypertension Palpitations Procedures ECG COMPLETE ECG ROUTINE ECG W/LEAST 12 LDS W/I&R Antionette Benitez DO [address] [place] [address] [facility] [place] [address] [place] [address] Referral ID Status Reason Start Date Expiration Date Visits Requested Visits Authorized [id number] New Request Auto-Generat ed Referral 4 04/05/2025 1 1 [facility] for referral (narrative)No reason for referral information availableOhiohealth [facility] Work Phone: Summary Purpose Family History No Family History Records Found Relationship Condition Age at Onset Recorded Date/T bartolome father Hypertension Unknown Advance Directives No Advanced Directives Records Found Advance Directive Response Recorded Date/ Time Advance Directives No March 8:40am Reason for Referral Specialty Diagnoses / Procedures Referred By Tolu berger Referred To Contact Cardiology Diagnoses Vasovagal syncope Sinus tachycardia Procedures CONSULT TO CARDIOLOGY OFFICE/OUTPATIENT [facility] 60 MINUTES Antionette Benitez DO [address] [place] [address] Referral ID Status Reason Start Date Expiration Date Visits Requested Visits Authorized [id number] Pending Review PCP Requested Referral 05/07/2024 05/07/2025 [...] and content) DATE CREATED AUTHOR 12/02/2018 [facility] DATE CREATED AUTHOR AUTHOR'S ORGANIZ ATION 12/19/2021 [facility] DATE CREATED AUTHOR AUTHOR'S ORGANIZ ATION 12/23/2021 [facility] DATE CREATED AUTHOR AUTHOR'S ORGANIZ ATION 12/03/2023 [facility] DATE CREATED AUTHOR AUTHOR'S ORGANIZ ATION 02/09/2024 [facility] DATE CREATED AUTHOR AUTHOR'S ORGANIZ ATION 04/21/2024 [facility] DATE CREATED AUTHOR AUTHOR'S ORGANIZ ATION 04/25/2024 [facility] DATE CREATED AUTHOR AUTHOR'S ORGANIZ ATION 07/17/2024 [facility] DATE CREATED AUTHOR AUTHOR'S ORGANIZ ATION 08/13/2024 [facility] EP[facility] DATE CREATED AUTHOR AUTHOR'S ORGANIZ ATION 08/28/2024 [facility] DATE CREATED AUTHOR AUTHOR'S ORGANIZ ATION 11/01/2024 [facility] DATE CREATED AUTHOR AUTHOR'S ORGANIZ ATION 12/07/2024 [facility] DATE CREATED AUTHOR AUTHOR'S ORGANIZ ATION 12/27/2024 [facility] DATE CREATED AUTHOR AUTHOR'S ORGANIZ ATION 12/28/2024 [facility] DATE CREATED AUTHOR AUTHOR'S ORGANIZ ATION 02/01/2025 [facility] <item> Privacy Markings (unrecogniz ed section [...] Comments Refill Request Reason Comments New Patient FIRE LOOKOUT SELF REF SYNCOPE PER DR BENITEZ DONE AT [facility] SCHED W/ PT Reason [...] Comments was here yesterday, wants covid test Reason Comments burning with urination Reason Comments Other Patient states she w as recently being treated for Chlamydia - taking Doxy X1 week . Patient states she is not noticing any improvement . Patient states she is unable to urinate . Patient states that she is having severe vaginal burning which is causing her not to be able to sit . Patient also complains of belly button pain . Reason Comments Hospital Follow Up Scheduled Active and Recently Administ ered Medications [...] or prosecute any alcohol or drug abuse patient.[facility] HospitalIn the event this information is protected by the Federal Confidentiality of Alcohol and Drug Abuse Patient Records regulations: The Federal rules restrict any use of the information to criminally investigate or prosecute any alcohol or drug abuse patient.[facility] HospitalIn the event this information is protected by the Federal Confidentiality of Alcohol and Drug Abuse Patient Records regulations: The Federal rules restrict any use of the information to criminally investigate or prosecute any alcohol or drug abuse patient.[facility] HospitalIn the event this information is protected by the Federal Confidentiality of Alcohol and Drug Abuse Patient Records regulations: The Federal rules restrict any use of the information to criminally investigate or prosecute any alcohol or drug abuse patient.[facility] HospitalIn the event this information is protected by the Federal Confidentiality of Alcohol and Drug Abuse Patient Records regulations: The Federal rules restrict any use of the information to criminally investigate or prosecute any alcohol or drug abuse patient.[facility] HospitalIn the event this information is protected by the Federal Confidentiality of Alcohol and Drug Abuse Patient Records regulations: The Federal rules restrict any use of the information to criminally investigate or prosecute any alcohol or drug abuse patient.[facility] HospitalIn the event this information is protected by the Federal Confidentiality of Alcohol and Drug Abuse Patient Records regulations: The Federal rules restrict any use of the information to criminally investigate or prosecute any alcohol or drug abuse patient.[facility] HospitalIn the event this information is protected by the Federal Confidentiality of Alcohol and Drug Abuse Patient Records regulations: The Federal rules restrict any use of the information to criminally investigate or prosecute any alcohol or drug abuse patient.[facility] the event this information is protected by the Federal Confidentiality of Alcohol and Drug Abuse Patient Records regulations: The Federal rules restrict any use of the information to criminally investigate or prosecute any alcohol or drug abuse patient.[facility] HospitalIn the event this information is protected by the Federal Confidentiality of Alcohol and Drug Abuse Patient Records regulations: The Federal rules restrict any use of the information to criminally investigate or prosecute any alcohol or drug abuse patient.[facility] HospitalIn the event this information is protected by the Federal Confidentiality of Alcohol and Drug Abuse Patient Records regulations: The Federal rules restrict any use of the information to criminally investigate or prosecute any alcohol or drug abuse patient.[facility] ClinicIn the event this information is protected by the Federal Confidentiality of Alcohol and Drug Abuse Patient Records regulations: The Federal rules restrict any use of the information to criminally investigate or prosecute any alcohol or drug abuse patient.[facility] HospitalIn the event this information is protected by the Federal Confidentiality of Alcohol and Drug Abuse Patient Records regulations: The Federal rules restrict any use of the information to criminally investigate or prosecute any alcohol or drug abuse patient.[facility] HospitalIn the event this information is protected by the Federal Confidentiality of Alcohol and Drug Abuse Patient Records regulations: The Federal rules restrict any use of the information to criminally investigate or prosecute any alcohol or drug abuse patient.[facility] Care Teams (unrecognized sec tion and content) Baling Machine Operator Relationship Specialty [place] [address] [place] [id number] PCP - General Family Medicine 04/05/24 Baling Machine Operator Relationship Specialty Start [place] [address] [place] [id number] PCP - General Family Medicine 04/05/24 Baling Machine Operator Relationship Specialty Start [place] [address] [place] [address] [id number] PCP - General Family Medicine 04/05/24 Baling Machine Operator Relationship Specialty Start [place] [address] [place] [address] [id number] PCP - General Family Medicine 04/05/24 Baling Machine Operator Relationship Specialty [place] [address] [place] [address] PCP - General Family Medicine 04/22/24 Baling Machine Operator Relationship Specialty Start [place] [address] [place] [address] PCP - General Family Medicine 04/22/24 Baling Machine Operator Relationship Specialty Start Date End Date Kalyn Gilman DO [address] [place] [address] PCP - General Pediatrics 02/10/17 12/31/23 Baling Machine Operator Relationship Specialty Start Date End Date Antionette Benitez DO [address] [place] [address] [id number] PCP - General Family Medicine 04/05/24 Baling Machine Operator Relationship Specialty Start Date End Date Antionette Benitez DO [address] [place] [address] [phone] PCP - General Family Medicine 04/05/24 Baling Machine Operator Relationship Specialty Start Date End Date Antionette Benitez DO [address] [place] [address] [id number] PCP - General Family Medicine 04/05/24 Baling Machine Operator Relationship Specialty Start Date End Date Antionette Benitez DO [address] [place] [address] [id number] PCP - General Family Medicine 04/05/24 Baling Machine Operator Relationship Specialty Start Date End Date Antionette Benitez DO [address] [place] [address] [id number] PCP - General Family Medicine 04/05/24 Baling Machine Operator Relationship Specialty [place] [address] [place] [address] PCP - General Family Medicine 04/22/24 Team Status: Active Member Role Status Dates NON STAFF Primary Care Provider Active Team Status: Inactive Member Role Status Dates Myesha Caceres DO Attending Provider Active Start: July 23, 2024 End: July 23, 2024 NON STAFF Primary Care Provider Active Start: July 23, 2024 End: July 23, 2024 Baling Machine Operator Relationship Specialty [place] [address] [place] [address] PCP - General Family Medicine 04/22/24 Tania Youngblood PA [address] [facility] [address] [place] [address] Physician Dentist/Owner Neurology 08/12/24 Baling Machine Operator Relationship Specialty Start [place] [address] [place] [address] PCP - General Family Medicine 04/22/24 Tania Youngblood PA [address] [facility] [address] [place] [address] Physician Dentist/Owner Neurology 08/12/24 Team Status: Inactive Member Role Status Dates NON STAFF Primary Care Provider Active Start: August 22, 2024 End: August 22, 2024 Merry Alvarez APRN Attending Provider Active S tart: August 22, 2024 End: August 22, 2024 Team Status: Inactive Member Role Status Dates Merry Alvarez APRN Attending Provider Active S tart: August 22, 2024 End: August 22, 2024 Baling Machine Operator Relationship Specialty Start Date End Date Ref Prov, [place] [address] PCP - General 06/21/24 Baling Machine Operator Relationship Specialty Start Date End Date Ref Prov, [place] [address] PCP - General 06/21/24 Team Status: Inactive [...] October 28, 2024 End: October 28, 2024 Baling Machine Operator Relationship Specialty Start Date End Date Ref Prov, [place] [address] PCP - General 06/21/24 Baling Machine Operator Relationship Specialty Start Date End Date Ref Prov, [place] [address] PCP - General 06/21/24 Baling Machine Operator Relationship Specialty Start Date End Date Antionette Benitez DO [address] [place] [address] PCP - General Family Medicine 04/05/24 Goals (unrecognized section and content) Goals may [...] BE BASED ON THE PRIMARY CLINICAL RECORDS. [facility]. provides no warranty or guarantee of the accuracy or completeness of information in this document.
--- NOTE | 2025-02-09 15:25 | ECG_ITS ---
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
--- NOTE | 2025-02-09 15:25 | XR_ITS ---
[place] [id number] Patient Name: TRAVON RODRIGUEZ MRN: [id number] date: 2005 Sex: F Assigned Patient Location: ER Current Patient Location: ED.MAIN Accession/Order Number: [id number] Exam Date: 02/09/2025 15:40 Report Date: 02/09/2025 16:08 At the request of: LISA CLEMENTE Procedure: XR chest 1V XR chest 1V 02/09/2025 3:43 PM SIGNS AND SYMPTOMS: ^cough, palpitations ^Y PROTOCOL: Frontal radiograph the chest COMPARISON: 11/09/2024 FINDINGS: The trachea is midline. The heart and mediastinal structures are within normal limits. The lung parenchyma is clear. The bony thorax is intact. XR/XR chest 1V IMPRESSION: No acute cardiopulmonary pathology. Impression dictated by: Avni Nagel M.D. 02/09/2025 4:08 PM Dictation Location: [place] [address] Electronically authenticated by: [id number] Y Date: 02/09/2025 16:08
--- NOTE | 2025-02-09 15:28 | ED_ITS ---
HPI - Arrhythmia/Palpitations General Chief Complaint: Arrhythmia/Palpitations Stated Complaint: CONGESTION, CHEST PAIN & PALPITATIONS Time Seen by Provider: 02/09/25 14:52 Source: patient Mode of arrival: walk-in Limitations: no limitations History of Present Illness HPI narrative: Patient is a 19-year-old female who presents to the ER with her mother for evaluation of palpitations, cough and possible anxiety. The patient lives in [place] but came home to visit for the weekend. Patient states on Monday she had an episode of palpitations and shortness of breath, EMS was called and after their evaluation felt symptoms may have been more likely related to anxiety or panic attacks which she has had in the past. Patient states that these episodes come and go. She notes she typically gets them at night when she is laying down to sleep and feels like her heart starts to race accompanied by shortness of breath and feeling anxious. Patient states symptoms can come at random. Patient is not currently working. States she had lab work done by her PCP through a [facility] lab facility and on follow-up to the [facility] hotline was told that her iron levels were very low. Patient has her lab work with her on her phone and her iron levels were normal but elevated TIBC likely indicates a iron deficient state. We discussed that this can be result of iron deficiency in her diet. She is dealing with some life stretches and currently is not working. She has had an extensive cardiac evaluation per mother involving stress test and cardiac monitoring that yielded no results. The patient denies any recent surgeries long travels or flights. She denies any pelvic pain or discharge she denies dysuria. She reports feeling somewhat confused at times with the periods of anxiety. Her cough is dry nonproductive and she attributes it to seasonal allergies since coming home for the weekend. She does not appear short of breath at the bedside and denies symptoms on exertion. She is without any current chest pain shortness of breath but still feels that her palpitations are present. She admits to having anxiety and talking with counselors in the past. The only thing that is out of norm recently is that her menstrual cycles have been heavier than normal but only going through 3-4 pads a day on the first 2 to 3 days of her cycle that typically last 5 to 7 days. Patient did have her labs from [facility] at bedside which include thyroid studies and other test. Patient states she smokes but is working on quitting. She denies any hormone use. She denies any recent surgeries long travels or flights. She did attend a concert in [place] but mother states it is not far from [place]. She admits that a friend was smoking and developed a pneumothorax which had her concerned sparking symptoms today and evaluation in the ER. MD complaint: Reports rapid heart beat, heart racing and palpitations Related Data Home Medications ?Medication ?Instructions ?Recorded ?Confirmed hydroxyzine DAILY PRN anxiety 04/11/24 levothyroxine 25 mcg tablet 25 mcg PO DAILY 11/09/24 1 lamotrigine 25 mg tablet 25 mg PO .COMPLEX 02/09/25 1 Allergies Allergy/AdvReac Type Severity Reaction Status Date / Time ciprofloxacin (From Cipro) Allergy Unknown Anxiety Verified 02/09/25 14:57 Review of Systems ROS Constitutional Denies: fever or chills Eyes Denies: change in vision Ears, nose, mouth, and throat Denies: throat pain or neck pain Cardiovascular Reports: palpitations; Denies: chest pain or edema Respiratory Reports: shortness of breath and cough; Denies: wheezing or stridor Genitourinary Denies: painful urination or urinary frequency Musculoskeletal Denies: back pain, neck pain, extremity pain, extremity swelling or joint pain Integumentary/Breast Denies: rash or itching Neurological Denies: headache or numbness in extremities Psychiatric Reports: anxiety and panic attacks; Denies: mood swings Endocrine Denies: excessive urination Hematologic/Lymphatic Denies: easy bruising PFSH PFSH Social History Little interest or pleasure in doing things: not at all Feeling down, depressed, or hopeless: not at all Exam Narrative Exam Narrative: Nurse's notes and vital signs reviewed and patient is not hypoxic. General: The patient appears well and in no apparent distress. Patient is resting comfortably in cart. Skin: Warm, dry, no pallor noted. Head: Normocephalic, atraumatic Neck: Supple, trachea midline, no tenderness, no lymphadenopathy Ears, nose, mouth, and throat: TMs are clear, normal light reflex, oral mucosa is moist, no posterior oropharynx erythema or hypertrophy, uvula is midline Cardiovascular: Regular rate and rhythm Respiratory: Patient is in no distress, no accessory muscle use, lungs are clear to auscultation, no wheezing, rales, or rhonchi. Chest wall: No tenderness Musculoskeletal: Normal ROM, no tenderness, no swelling GI: Normal bowel sounds, no tenderness to palpation, no masses appreciated. No rebound, guarding, or rigidity noted. Neurological: Alert and oriented ?4 Psychiatric: Cooperative Constitutional Vital Signs, click to edit/add: Last Vital Signs Temp 99.5 F 02/09/25 14:57 Pulse 89 02/09/25 14:57 Resp 16 02/09/25 14:57 BP 131/86 02/09/25 14:57 Pulse Ox 96 02/09/25 14:57 O2 Del Method Room Air 02/09/25 14:57 Course Vital Signs Vital signs: Vital Signs Temperature 99.5 F 02/09/25 14:57 Pulse Rate 89 02/09/25 14:57 Respiratory Rate 16 02/09/25 14:57 Blood Pressure 131/86 02/09/25 14:57 Pulse Oximetry 96 02/09/25 14:57 Oxygen Delivery Method Room Air 02/09/25 14:57 Temperature 99.5 F 02/09/25 14:57 Pulse Rate 89 02/09/25 14:57 Respiratory Rate 16 02/09/25 14:57 Blood Pressure 131/86 02/09/25 14:57 Pulse Oximetry 96 02/09/25 14:57 Oxygen Delivery Method Room Air 02/09/25 14:57 MDM - Arrhythmia/Palpitations MDM Narrative Medical decision making narrative: Patient has a benign physical exam and benign vital signs. We discussed her past history with anxiety and a significant workup to rule out a cardiac etiology. She was noted to have periods of tachycardia during her cardiac monitoring but no official diagnosis. Today's visit seems to be sparked by a phone call from [facility] notifying her of her iron deficient status and friend experiencing a pneumothorax. The patient appears in no distress and this was discussed at length. PERC=0 We reviewed her labs on her phone from [facility] that were recently drawn. We discussed her iron deficient state and not that she is low on iron currently. We discussed focusing on iron rich foods. Discussing the n eed for iron p.o. with her family doctor versus taking a One-A-Day woman's vitamin. Reviewed laboratory studies, urinalysis and chest x-ray. EKG. Discussed with patient. She is reassured, recommend follow-up with mental health counseling to discuss anxiety and PCP to discuss her prior outpatient laboratory workup and next treatment options. recommend taking 1 a day women multivitamin pending appt with pcp. She may return to the ER if symptoms worsen or new symptoms develop. She is encouraged to continue her smoking cessation goals. The patient is to followup with primary care physician in next 2-3 days or to return to the emergency department should any of the signs or symptoms worsen or new symptoms develop. Patient had questions answered. The patient agrees with the following Diagnosis and Treatment plan and the patient will be discharged home.. Lab Data Attestation: I reviewed the patient's lab results. Labs: Lab Results 02/09/25 02/09/25 Range/Units 15:36 15:40 WBC 7.6 (4.0-11.0) 10^3/uL RBC 5.00 (4.20-5.40) 10^6/uL Hgb 14.9 (12.0-16.0) g/dL Hct 43.6 (36.0-48.0) % MCV 87.2 (81.0-99.0) fL MCH 29.8 (26.7-34.0) pg MCHC 34.2 (29.9-35.2) g/dL RDW 11.7 (11.0-15.0) % Plt Count 334 (150-450) 10^3/uL MPV 9.5 (9.5-13.5) fL Neut % (Auto) 65.7 (43.0-75.0) % Lymph % (Auto) 20.3 L (20.5-60.0) % Williamson % (Auto) 6.6 (1.7-12.0) % Eos % (Auto) 5.9 (0.9-7.0) % Baso % (Auto) 1.2 (0.2-2.0) % Neut # (Auto) 5.0 (1.4-6.5) 10^3/uL Lymph # (Auto) 1.5 (1.2-3.8) 10^3/uL Williamson # (Auto) 0.5 (0.3-0.8) 10^3/uL Eos # (Auto) 0.5 (0.0-0.7) 10^3/uL Baso # (Auto) 0.1 (0.0-0.1) 10^3/uL Abs Immat Gran (auto) 0.02 (0.00-0.03) 10^3/uL Imm/Tot Granulo (auto) 0.3 (0.0-0.5) % Sodium 139 (136-145) mmol/L Potassium 3.9 (3.5-5.1) mmol/L Chloride 100 (98-107) mmol/L Carbon Dioxide 27.3 (21.0-32.0) mmol/L Anion Gap 15.6 BUN 11.0 (7.0-18.0) mg/dL Creatinine 0.76 (0.55-1.02) mg/dL Est GFR ( Amer) >60 (>=60 mL/min/1.73m^2) Est GFR (Non-Af Amer) >60 (>=60 mL/min/1.73m^2) BUN/Creatinine Ratio 14.5 Glucose 98 (74-106) mg/dL Calcium 8.9 (8.5-10.1) mg/dL Total Bilirubin 0.8 (0.2-1.0) mg/dL AST 15 (15-37) U/L ALT 18 (14-59) U/L Alkaline Phosphatase 85 (46-116) U/L Total Protein 8.1 (6.4-8.2) g/dL Albumin 4.5 (3.4-5.0) g/dL Globulin 3.6 g/dL Albumin/Globulin Ratio 1.2 Urine Color Lt. yellow (YELLOW) Urine Clarity Clear (CLEAR) Urine pH 6.5 (5.0-9.0) Ur Specific [place] 1.010 (1.005-1.025) Urine Protein Negative (NEG/TRACE) mg/dL Urine Glucose (UA) Negative (NEGATIVE) mg/dL Urine Ketones Negative (NEGATIVE) mg/dL Urine Occult Blood Negative (NEGATIVE) Urine Nitrite Negative (NEGATIVE) Urine Bilirubin Negative (NEGATIVE) Urine Urobilinogen 0.2 (0.2-1.0) EU/dL Ur Leukocyte Esterase Negative (NEGATIVE) Urine HCG, Qual Negative (NEGATIVE) Imaging Data Chest x-ray: My impression: 1 view chest x-ray no pneumothorax no infiltrate no cardiomegaly. ECG Data Attestation: I personally reviewed and interpreted this ECG as follows: Interpretation: Prelim EKG interpretation: normal sinus rhythm 65 , no ectopy, no ST segment elevation, no QT prolongation. Discharge Plan Discharge Chief Complaint: Arrhythmia/Palpitations Clinical Impression: Palpitations Patient Disposition: Home, Self-Care Time of Disposition Decision: 16:06 Condition: Good Prescriptions / Home Meds: No Action hydroxyzine 25 mg capsule DAILY PRN (Reason: anxiety) levothyroxine 25 mcg tablet 25 mcg PO DAILY lamotrigine 25 mg tablet 25 mg PO .COMPLEX Rx Instructions: 25 mg orally 1 in am 2 pills at night; Print Language: Occitan Instructions: Heart Palpitations (ED) Additional Instructions: Mental Health Hotline and Crisis Support 627-823-DMCO (7823) 14/11 crisis support is available through other resources: Call Text the keyword ?4hope? to 123 753 to be connected to a trained crisis counselor. Referrals: ANTIONETTE BENITEZ, DO [Primary Care Provider] - As soon as possible
[2025-02-09 15:47] LABS: Hematocrit 43.6 % (36.0-48.0); Hemoglobin 14.9 g/dL (12.0-16.0); Immature Granulocytes Abs Auto 0.02 10^3/uL (0.00-0.03); Immature Granulocytes Pct Auto 0.3 % (0.0-0.5); Lymphocytes Absolute Auto 1.5 10^3/uL (1.2-3.8); Mean Corpuscular HGB Conc 34.2 g/dL (29.9-35.2); Mean Corpuscular Hemoglobin 29.8 pg (26.7-34.0); Mean Corpuscular Volume 87.2 fL (81.0-99.0); Platelet Count 334 10^3/uL (150-450); Red Blood Count 5.00 10^6/uL (4.20-5.40); White Blood Count 7.6 10^3/uL (4.0-11.0)
[2025-02-09 15:55] LABS: Glucose Urine UA NEGATIVE (NEGATIVE)
[2025-02-09 15:57] LABS: HCG Qualitative Urine* NEGATIVE (NEGATIVE)
[2025-02-09 15:59] LABS: Alanine Aminotransferase 18 U/L (14-59); Albumin Globulin Ratio 1.2; Albumin Level 4.5 g/dL (3.4-5.0); Alkaline Phosphatase 85 U/L (46-116); Anion Gap 15.6; Aspartate Amino Transferase 15 U/L (15-37); Blood Urea Nitrogen 11.0 mg/dL (7.0-18.0); Calcium 8.9 mg/dL (8.5-10.1); Carbon Dioxide 27.3 mmol/L (21.0-32.0); Chloride 100 mmol/L (98-107); Estimated GFR (African America >60 (>=60 mL/min/1.73m^2); Estimated GFR (Non-African Ame >60 (>=60 mL/min/1.73m^2); Globulin 3.6 g/dL; Glucose 98 mg/dL (74-106); Potassium 3.9 mmol/L (3.5-5.1); Sodium 139 mmol/L (136-145); Total Protein 8.1 g/dL (6.4-8.2)
[2025-02-09 16:12] LABS: Cast Seen? NONE SEEN #/LPF (NONE SEEN); Crystals Seen? None Seen #/HPF (None Seen); Urine Culture Indicated NO
[2025-02-12 13:08] LABS: Lamotrigine (Lamictal), Serum 2.1 ug/mL (2.0-20.0)
== END 2025-02-09 16:24 | disposition home or self-care (01) ==
PROVIDERS: Personal Emergency Response Attendant; Emergency Provider Emergency Medicine; PCP Family Medicine
DX: R00.2 Palpitations (principal); F17.200 Nicotine dependence, unspecified, uncomplicated; E61.1 Iron deficiency
CPT/HCPCS: 36415; 71045; 80053; 80175; 81001; 84703; 85025; 93005; 99285

== ENCOUNTER 2025-02-19 02:23 | Emergency (ER) | payer OTHER, SELFPAY ==
--- OUTSIDE RECORDS SUMMARY | 2024-02-07 06:25 | XMS_ITS ---
Author Organization The [facility] in [place] Address [address] [place] [address] Care Team Providers Care Cartridge Maker Name Role Phone None, Unknown or Primary Care Provider Unavailab le Provider, Lab Unavailable [phone] REASON FOR VISIT mlw Encounters Encounter Location Date Provider Diagnosis [facility] Lab Bldg [address] [place] [address] 02/07/2024 Lab Provider Plan Of Treatment No Information Progress Notes * Trice STALLWORTHDOB: 4 (19 yo F)Acc No.[id number]:02/07/2024 UNLOCKED PROGRESS NOTE Progress Note Patient: Trice FITCH :?Lab ProviderDOB:2005???Age:18 Y???Sex: FemaleDate:02/07/2024hone:[phone]:124 IAN MORENO [id number]:Unknown or NoneCheck In:10:23 AM ESTCheck Out:10:30 AM EST Subjective: * Chief Complaints: * 1 . Mlw. * Medical History: Objective: * Vitals: Assessment: Plan: * Treatment: * * Electronic signature of Lab Provider on 02/19/2025 at 03:34 AM EDTSign off status: PendingVisit Status:?CHK (Check Out) * Provider: Jesse lagunas Provider Date: Generated for Printing/Faxing/eTransmitting on:?02/19/2025 03:34 AM EDT
--- OUTSIDE RECORDS SUMMARY | 2025-02-14 10:15 | XMS_ITS | Continuity of Care Document ---
Author Organization [facility] Address [address] [place] [address] Phone Care Team Providers Care Golf Manager Name Role Phone NON STAFF Primary Care Provider Sarah Neely APRN Attending Provider Care Teams Patient Care Team Team Status: Active Member Role/Relationship Status Dates NON STAFF Primary Care Provider Active Patient Care Team Team Status: Inactive Member Role/Relationship Status Dates NON STAFF Primary Care Provider Active Start: February 14, 2025 End: February 14, 2025Argenis Childers ProviderActiveStart: February 14, 2025 End: February 14, 2025 Chief Complaint and Reason for Visit Chief Complaint Admit Date Cough, congestion, chills February 14, 2025 1:16pm Reason for Visit Admit Date Congestion of upper respiratory tract Oc tober 2024 1:16pm Upper respiratory tract infection Octobe r 2024 1:16pm Anxiety about health February 14, 2025 1:16pm Body aches February 14, 2025 1 :16pm Allergies, Adverse Reactions, Alerts Allergen Type Severity Reaction Last Updated Verified Status Comments ciprofloxacin Allergy Unknown unknown January 1:22pm Yes Active only allergy is to cipro Social History Smoking Status Unknown if ever smoked Observation Status Observation Response Date of Response Legal Sex Female (finding) [facility] Family History Relationship Condition Age at Onset Recorded Date/T bartolome father Hypertension Unknown Problems Active Problems Problem Diagnosis/Recorded Date Onset Date Stat us Possible exposure to STI August 22, 2024 6:55pm Unknown Active Hypothyroidism May 1st, 2025 6:31pm Unknown Activ e POTS (postural orthostatic t achycardia syndrome) August 22, 2024 6:31pm Unknown Active Bacterial pharyngitis August 22, 2024 6:55pm Unknown Active Chronic depression August 22, 2024 6:25pm Unknown A ctive Medications Medication Status Dose Units Route Directions Qty Days Refills S tart Date Stop Date End Date Reason(s) Instructions Adherence Aripiprazole 2 mg tablet Discontinued 2 MG PO August 22, 2024 12:00amOctober 2024 1:24pmMidodrine 5 mg tabletDiscontinued5 MGPOThree times dailyMay 2024 12:00amOctober 2024 1:23pmHydroxyzine Hcl 25 mg entmlzEhrakw14NFXBfd neededMa2024 12:00amComplies with drug therapyFluoxetine 10 mg qzsvgpxBcfofsynsfvt27BRYJLktbwZjw 2024 12:00am February 14, 2025 1:23pmLevothyroxine 25 mcg pkxqjzHunxpi01UQFILHgzuzKtc 2024 12:00amComplies with drug therapyAmoxicillin 500 mg wrfscfMsppjvjnobee731JF POTwice efvbi94004Kmo 2024 12:00amJuly 2024 9:14amFluticasone Propionate (Flonase Allergy Relief) 50 mcg/actuation spray,suspension Mvvjtpioglal6OUQEWZXVTXFBJSIAkvtl17874Bfjk 2024 12:00amOctober 2024 1:23pmadminister into each hedetwqJmtnscnworkeupn-Os-Ovslyzsxfft (Capmist Dm) 60-15-400 mg ypjhtvFsradncjnxie1BLVLWPOCLP 4-6 HOURS as needed for cold symptoms 140July 2024 12:00amOctober 2024 1:23pmdo not exceed 4 doses per 24 hrsAlbuterol Sulfate 90 mcg/actuation HFA aerosol xsnqgvpJigwxgefpuzu0HQQW INHALATIONEVERY 4-6 HOURS as needed for shortness of breath or wheezing6.70July 2024 12:00amOctober 2024 1:23pmInhalational Spacing Device (Aerochamber Mv) spacerDiscontinued0.ROUTE.HUJMIGBPY45Yljo 2024 12:00am February 14, 2025 1:23pmAs directedLamotrigine 25 mg qfbenvRphuxa95KCSW.COMPLEX February 14, 2025 12:00am25 mg orally 1 tablet in am, 2 tablets QHS;Complies with drug therapyNaproxen 500 mg qzguemNjehcq344QOHLTziz as neededOcthighlands arh regional medical center 2024 12:00amComplies with drug therapy Relevant Diagnostic Tests and/or Laboratory Data Laboratory Results Test Collection Date/Time Result Date/Time Result Interpretation Reference Range Result Comment Performing Site POC SARS CoV-2 Antigen February 14, 2025 1:33pm Octob er 2024 2:13pm Negative Influenza Type A (Rapid)February 14, 2025 1:33pmOctober 2024 2:13pm NegativeInfluenza Type B (Rapid)February 14, 2025 1:33pmOctober 2024 2:13pmNegative Vital Signs Vital Reading Result Reference Range Collection Date/Time Height 69 [in_i] February 14, 2025 1:35qnKvlkqq77.04 kgOcthighlands arh regional medical center 2024 1:21pmBody Temperature 98.9 [degF]97.6-99.0Octhighlands arh regional medical center 2024 1:21pmHeart Rate93 /chf35-783Oykrrwn 2024 1:21pmRespiratory rate18 /ufo31-94Allvmym 2024 1:21pmOxygen saturation by Pulse tqitgnyl07 %95-100[facility] 2024 1:21pmBP Cdvmjjwb455 mm[Hg]100-140Octhighlands arh regional medical center 2024 1:21pmBP Dkriltwdo23 mm[Hg]60-100Octhighlands arh regional medical center 2024 1:21pmBMI (Body Mass Index)24.0 kg/x2Kwpoham 2024 1:21pm Advance Directives Advance Directive Response Recorded Date/ Time Advance Directives No March 8:40am Insurance Providers Guarantor Trice Stallworth Address [address] [place] [address]Bfslhaw Info.Home Phone: Coverage Status Update:2024 Payer Group Member ID Coverage Type Subscriber Relationship to Subscriber Effective Date Expiration Date [facility] Id: [id number] [facility]: [id number] [address] [place] [address] Home Phone: Email: [email or web address] Encounters Encounter Location(s) Arrival/Admit Date Discharge/Departure Date Discharge/Departure Disposition Provider(s) Departed Physician/ Provider Office Visit -[facility] Saurav February 14, 2025 1:16pm February 14, 2025 2:14pm Discharged to home care or self care (routine discharge) Sarah Canales ock , ELECT[employer]IC 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 Recent Diagnosis Onset Date Admit Date Congestion of upper respiratory tract Unknown February 14, 2025 1:16pm Upper respiratory tract infection Unknown February 14, 2025 1:16pm Anxiety about health Unknown January 1:16pm Body aches Unknown February 14 1:16pm Assessments Diagnosis Onset Date Resolution Status Admit Date Congestion of upper respiratory tract noneactiveOct2024 1:16pmUpper respiratory tract infectionnoneactive February 14, 2025 1:16pmAnxiety about healthnoneactiveFebruary 14, 2025 1:16pm Body achesnoneactiveFebruary 14, 2025 1:16pm Plan of Treatment Author aSrah Puri [facility] HospitalAuthoredOcthighlands ar[facility] 2024 1:55pm19 year old female presents today with concerns of congestion and body aches. Discussing patient's concerns with her she elaborates on concern for her obsessive and compulsive thought process of illnesses that can kill her and despite being told otherwise she was at [facility] emergency room 2 days ago for similar symptoms and they did a full workup and she does not believe that there is anything wrong with her. She is under the care of a therapist, psychiatrist, and primary care physician. She had an admission to psych in November for anxiety and they changed her psych medications and she does not feel as though lamotrigine is working. Was previously on Abilify and Prozac. Pt denies suicidal or homicidal ideations. I explained to her that her physical exam today is negative for signs of infection but she endorses disbelief. Pt requests medication for anxiety, I explained that she needs to call her psychiatrist for medications as she is already on hydroxyzine for anxiety. PCR- Future Tests Future scheduled test information is unavailable Pending Tests Pending diagnostic test information is unavailable Future Visits Future appointment information is unavailable Future Procedures Future procedure information is unavailable Future Medications Future medication information is unavailable Patient Instructions Patient instructions are unavailable
--- OUTSIDE RECORDS SUMMARY | 2025-02-18 06:45 | XMS_ITS ---
Author Organization [facility] in [place] Address [address] [place] [address] Care Team Providers Care Advertising Sales Consultant Name Role Phone None, Unknown or Primary Care Provider Unavailab Jenna Swan [phone] REASON FOR VISIT annual Encounters Encounter Location Date Provider Diagnosis [facility] [address] [place] [address] 02/18/2025 Jenna Castro Plan Of Treatment No Information Progress Notes * Trice ORDRIGUEZDOB: 4 (19 yo F)Acc No.[id number]:02/18/2025 Established Patient: Trice FITCH :?JODI McguireOB:2005???Age:19 Y???Sex: FemaleDate:02/18/2025Phone:[phone]:[address] [id number]:Unknown or None Subjective: * Chief Complaints: * 1 . Annual. 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
[2025-02-19] VITALS (7 sets, daily range): BP systolic 120–145; BP diastolic 87–92; PULSE 85; TEMP 36.9; O2SAT 97–99; BMI 24.1
[2025-02-19] MEDS: LORAZEPAM 0.5 MG TABLET 0.25 MG PO (02:59)
--- NOTE | 2025-02-19 03:01 | ED.GENADUL1 ---
HPI HPI - General Adult General Chief complaint: Seizure Stated complaint: ANXIETY Time Seen by Provider: 02/19/25 02:27 Source: patient Mode of arrival: ambulance Limitations: no limitations History of Present Illness HPI narrative: Patient is a 19-year-old female, history significant for anxiety and panic attacks, presenting to the emergency department for concerns of anxiety. Patient states that throughout the night tonight she was having her typical anxiety symptoms. She states her chest felt tight, she felt shakiness in her lower extremities, and a buzzing in her head. She states that she has had symptoms like this many times in the past, especially over the last year. She has been dealing with anxiety since she has been 7 years old. She is otherwise been in her baseline state of health without recent illnesses. She has no headache, fevers, chills, or active chest pain/shortness of breath. She states she sees a therapist, and is on lamotrigine/hydroxyzine, follows up with her PCP regularly for her anxiety. She states she feels well supported at home by her parents and boyfriend. She denies any thoughts of suicidal or homicidal ideation. Related Data Home Medications ?Medication ?Instructions ?Recorded ?Confirmed hydroxyzine DAILY PRN anxiety 04/11/24 levothyroxine 25 mcg tablet 25 mcg PO DAILY 11/09/24 02/19/25 lamotrigine 25 mg tablet 25 mg PO .COMPLEX 02/09/25 02/19/25 Allergies Allergy/AdvReac Type Severity Reaction Status Date / Time ciprofloxacin (From Cipro) Allergy Unknown Anxiety Verified 02/19/25 02:28 Opioid HPI Opioid Management Most Recent Opioid Data: Last Pain Scale 5 02/09/25, 14:57 Review of Systems ROS Status of ROS 10 or more systems reviewed and unremarkable except as noted in history and below PFSH PFSH Social History Little interest or pleasure in doing things: not at all Feeling down, depressed, or hopeless: not at all Exam Narrative Exam Narrative: CONSTITUTIONAL: She appears anxious, has some pressured speech, is calm and cooperative, not responding to internal stimuli, answering questions and following commands appropriately SKIN: Was warm and dry. EYES: Sclerae white. EARS, NOSE, THROAT: Moist oral mucosa. RESPIRATORY: Clear to auscultation bilaterally, no wheezes, crackles, or stridor, no use of accessory muscles CARDIOVASCULAR: Normal rate and regular rhythm. There is no S3, S4, murmur, rub. GASTROINTESTINAL: Abdomen is soft, nontender, nondistended. MUSCULOSKELETAL: No peripheral edema. NEUROLOGIC: Patient is awake and alert. 5/5 strength in the bilateral lower extremities. Sensation intact to light touch in the bilateral lower extremities. Facies were symmetrical. Constitutional Vital Signs, click to edit/add: Last Vital Signs Temp 98.4 F 02/19/25 02:29 Pulse 85 02/19/25 02:29 Resp 18 02/19/25 02:29 BP 145/92 H 02/19/25 02:29 Pulse Ox 97 02/19/25 02:29 O2 Del Method Room Air 02/19/25 02:29 Course Vital Signs Vital signs: Vital Signs Temperature 98.4 F 02/19/25 02:29 Pulse Rate 85 02/19/25 02:29 Respiratory Rate 18 02/19/25 02:29 Blood Pressure 145/92 H 02/19/25 02:29 Pulse Oximetry 97 02/19/25 02:29 Oxygen Delivery Method Room Air 02/19/25 02:29 Temperature 98.4 F 02/19/25 02:29 Pulse Rate 85 02/19/25 02:29 Respiratory Rate 18 02/19/25 02:29 Blood Pressure 145/92 H 02/19/25 02:29 Pulse Oximetry 97 02/19/25 02:29 Oxygen Delivery Method Room Air 02/19/25 02:29 Medical Decision Making MDM Narrative Medical decision making narrative: Patient is a 19-year-old female presenting to the emergency department with complaints of an anxiety attack. Her symptoms today are consistent with her many prior episodes of anxiety. Her vital signs are within normal limits. She is afebrile. She has a normal physical examination. Patient just had laboratory studies drawn from 10 days ago. Overall, blood work was unremarkable. No significant electrolyte or metabolic derangement. No evidence of acute kidney injury. No anemia, leukocytosis, or thrombocytopenia. No transaminitis or hyperbilirubinemia. Additionally, patient had chest x-ray obtained 10 days ago. Chest x-ray demonstrated no acute cardiopulmonary process. I do believe the patient's presentation today is consistent with her history of anxiety. She is already on medication, sees a therapist, and follows up with her PCP regularly. I do not believe any emergent workup is needed here in the ED. She was instructed to continue following up with her healthcare providers on outpatient basis. She was given a 0.25 mg dose of Ativan prior to her ED departure. She has a safe ride home. Return precautions were given including any new or concerning symptoms. Patient understands and agrees to plan. FINAL IMPRESSION: #Acute anxiety attack DISPOSITION: Discharged home CONDITION: Good Medical Records Medical records reviewed: Yes I reviewed the patient's medical records Lab Data Lab results reviewed: Yes I reviewed the patient's lab results Imaging Data Chest x-ray: Attestation: I personally reviewed and interpreted this imaging study as follows: Discharge Plan Discharge Chief Complaint: Seizure Clinical Impression: Acute anxiety Patient Disposition: Home, Self-Care Time of Disposition Decision: 02:55 Condition: Good Mode of Transportation: Private Vehicle Prescriptions / Home Meds: No Action hydroxyzine 25 mg capsule DAILY PRN (Reason: anxiety) levothyroxine 25 mcg tablet 25 mcg PO DAILY lamotrigine 25 mg tablet 25 mg PO .COMPLEX Rx Instructions: 25 mg orally 1 in am 2 pills at night; Print Language: Malagasy Instructions: Anxiety (ED) Referrals: ANTIONETTE BENITEZ DO [Primary Care Provider] - 1 week
--- OUTSIDE RECORDS SUMMARY | 2025-02-19 03:34 | XMS_ITS | Clinical Summary ---
Author Organization [employer] Address [id number] [address] [place] [address] Care Team Providers Care Chemical Research Technician Name Role Phone Ref Prov, Not In System Primary Care Provider Un available Allergies Active AllergyReactionsCriticalityNoted DateCommentsCiprofloxacinPalpitationsLow 04/05/2024 Other Reaction(s): Other: See Comments Heart palp, hard time breathing, shaking Medications MedicationSigDispense QuantityRefillsLast FilledStart DateEnd DateStatus hydrOXYzine (ATARAX) 25 mg tablet Take 1 tablet (25 mg total) by mouth as needed in the morning and 1 tablet (25 mg total) as needed in the evening.02/07/2020Active FLUoxetine (PROzac) 10 mg capsule Take 1 capsule (10 mg total) by mouth in the morning.4Active levothyroxine (SYNTHROID, LEVOTHROID) 25 MCG tablet Take 1 tablet (25 mcg total) by mouth in the morning.5Active ARIPiprazole (ABILIFY) 2 mg tablet Take 1 tablet (2 mg total) by mouth.Active norethindrone ac-eth estradioL (05/13, ,) 1-20 mg-mcg per tablet Take 1 tablet by mouth in the morning. 21 tablet 1205Active Active Problems ProblemNoted DateDiagnosed ZqgnEwdviaj51/26/2025Trichotillomania in pediatric wmobwlm2602/13/20179950Kpklnee92/04/2016 Immunizations ImmunizationAdministration DatesNext RztESrT4110/22/2007,04/20/2005,04/28/2004, 03/15/2004,01/06/2004HPV91,02/13/2017Hep B, Adolescent or Pediatric 04/28/2004,03/15/2004,01/06/2004,2003Hepatitis A07,01/17/2012HiB 01/19/2005,04/28/2004,03/15/2004,01/06/2004IPV10/22/2007,04/28/2004,03/15/2004, 01/06/2004Influenza LAIV (Nasal)02/10/2020Influenza, Injectable, quadrivalent (PF)02/23/2021,02/13/2018,02/13/2017Influenza, Jadzylonmsv25/18/2016,03/23/2015, 02/04/2006MMR10/22/2007,01/19/2005Meningococcal B, Omv105/16/2019,02/10/2020 Meningococcal Tzzxuhppx92/19/2020,03/23/2015Pneumococcal Conjugate 13-Valent 10/21/2004,07/16/2004,03/15/2004,01/06/2004Tdap11/30/2023,12/02/2013Varicella 10/22/2007,10/21/2004 Family History Medical HistoryRelationNameCommentsDepressionBrotherHyperthyroidismBrother Learning disabilitiesBrotherMental illnessBrotherHypertensionFatherMental illnessFatherAtrial fibrillationMaternal GrandmotherHypothyroidismMotherMental illnessMotherRelationNameStatusCommentsBrotherAliveFatherAliveMaternal GrandmotherAliveMotherAlive Social History Tobacco UseTypesPacks/DayYears UsedDateSmoking Tobacco: FormerCigarettes0.51.1 Started: 01/2024Smokeless Tobacco: NeverAlcohol UseStandard Drinks/WeekComments Yes0 (1 standard drink = 0.6 oz pure alcohol)sociallyPHQ-2AnswerDate Recorded Total Nfkrw6529/23/2018ChildcareAnswerDate ClltkchjBpfyuavzeAtmulxh35/10/2019 EmploymentAnswerDate AusplrxtVnwvliuhmgNgcebgo51/10/2019Hunger ScreeningAnswer Date RecordedWithin the past 12 months we worried whether our food would run out before we got money to buy more.Never True06/19/2024Within the past 12 months the food we bought just didn't last and we didn't have money to get more.Never True06/19/2024Purpose - LifeAnswerDate RecordedPurpose and direction in life Lmutmbh68/10/2021CommentsNoSex and Gender InformationValueDate Recorded Sex Assigned at BirthNot on fileLegal BljDresxt93/04/2015 3:17 PM EDTGender IdentityNot on fileSexual OrientationNot on file Last Filed Vital Signs Vital SignReadingTime TakenCommentsBlood Cnnhlwac518/7807 1:54 PM EDT Rxckw3427/26/2025 8:34 AM ESTTemperature--Respiratory Rate--Oxygen Saturation 97%06/19/2024 8:34 AM ESTInhaled Oxygen Concentration--Bmmthk16.1 kg (156 lb 12.8 oz)10/24/2024 1:54 PM UWHHglejj502.4 cm (5' 8.27 )10/24/2024 1:54 PM EDT Body Mass Index23.65010/24/2024 1:54 PM EDT Plan of Treatment DateTypeDepartmentCare Team (Latest Contact Info)Djooudlshva59/29/2025 9:45 AM EDTOffice Visit [facility] [address] [place] [phone] Lynn Welsh, STEFANY-MILAN [address] [place] [address] Health MaintenanceDue DateLast DoneCommentsDepression Uqjcdunhy08/08/2025 4COVID-19 Vaccine ( season)501/, 09/02/2020, 08/12/2020Influenza Uwcqsst33/05/2020, 02/10/2020, 02/13/2018, Additional history existsAdult BMI Euzifusot00/hlamydia Puaeejfzx14/06/2024, 07/08/2024, 02/07/2024Tobacco Pntcikcum36/03/2026 10/24/2024Pap Smear7/06/2024, 02/07/2024TaP,Tdap and Td Vaccines (8 - Td or Tdap)/11/2023, 12/02/2013, 10/22/2007, Additional history exists Medical Devices Not on file Procedures Procedure NamePriorityDate/TimeAssociated DiagnosisCommentsTHIN PREP PAP TEST Glsnbhp0610/24/2024 2:51 PM EDT Well woman exam with routine gynecological exam CHLAMYDIA/GC BY PCR JOAO PNFOSjcsqtm65/03/2025 2:51 PM EDT Unprotected sexual intercourse from Last 3 Months or Most Recently Relevant to Health Maintenance Results * Thin Prep Pap Test (10/24/2024 2:51 PM EDT)ComponentValueRef RangeTest Method Analysis TimePerformed AtPathologist SignatureCase ReportGynecologic Cytology Report ? Case: [id number] ? Authorizing Provider: ??Yenny Lozano MD ?Collected: ? 10/24/2024 1451 ? Ordering Location: ? [facility] ? Received: ?10/24/2024 1452 ? Obstetrics/Gynecology ? First Screen: ?Aissatou Howell, CT(ASCP) ? Rescreen: ?Thang Willson, ? CT(ASCP) ? Specimen: ?Thin Prep Pap, Cervix/Endocervix ? 10/28/2024 3:31 PM [facility] LABORATORYSpecimen Adequacy Satisfactory for evaluation, endocervical/transformation zone component absent 10/28/2024 3:31 PM [facility] LABORATORYInterpretationNEGATIVE FOR INTRAEPITHELIAL LESION OR MALIGNANCYNEGATIVE FOR INTRAEPITHELIAL LESION OR MALIGNANCY, UNSATISFACTORY, EPITHELIAL CELL ABNORMALITY, GLANDULAR EPITHELIAL CELL ABNORMALITY. , SQUAMOUS EPITHELIAL CELL ABNORMALITY, NO DIAGNOSIS RENDERED. 10/28/2024 3:31 PM [facility] at 1531 EDTOther FindingsFungal organisms morphologically consistent with Tara species are present.10/28/2024 3:31 PM [facility] LABORATORYAdditional InformationThe Pap test is a screening test with an inherent, but low, probability of error. The Pap test is primarily effective for the diagnosis and prevention of squamous cell carcinoma. Regular screening iscritical for prevention. ThinPrep liquid-based slides, which meet the Health And Safety Manager criteria for automated screening, have been screened by the ThinPrep Imaging System (as of 01/08/07) along with an additional manual rescreening by a dental assistant medical assistant and, if indicated, by a pathologist.10/28/2024 3:31 PM [facility] LABORATORYClinical Informationannual with pap10/28/2024 3:31 PM [facility] LABORATORYEmbedded Mnpsbt0110/28/2024 3:31 PM [facility] LABORATORYSpecimen (Source)Anatomical Location / LateralityCollection Method / VolumeCollection TimeReceived TimeThinPrep cytology technique (qualifier value) (Cervix/Endocervix)10/24/2024 2:51 PM EDT10/24/2024 2:52 PM EDT Narrative Authorizing ProviderResult TypeResult StatusTiflety Lozano MDPATHOLOGY/CYTOLOGY ORDERABLESFinal ResultPerforming OrganizationAddressCity/State/ZIP CodePhone Number [facility] [address] [place] [address], * Chlamydia/GC by PCR Joao Swab (10/24/2024 2:51 PM EDT)ComponentValueRef Range Test MethodAnalysis TimePerformed AtPathologist SignatureCHLAMYDIA DNA(PCR) WbksvwyrXulrejip42/04/2025 10:55 AM [facility] Comment:Chlamydia trachomatis not detected by nucleic acid amplification. This does not exclude the possibility of infection because results are dependent on adequate specimen collection.GONORRHOEAE DNA(PCR)JjyjtjqfQmldlwlo02/04/2025 10:55 AM [facility] LABORATORYComment:Neisseria gonorrhoeae not detected by nucleic acid amplification. This does not exclude the possibil ity of infection because results are dependent on adequate specimen collection.Specimen (Source)Anatomical Location / LateralityCollection Method / VolumeCollection TimeReceived TimeSwabVaginal structure / Wftdwzy8810/24/2024 2:51 PM EDT10/24/2024 2:52 PM EDT Narrative Authorizing ProviderResult TypeResult StatusTiflety Lozano MDMICROBIOLOGY - GENERAL ORDERABLESFinal ResultPerforming OrganizationAddressCity/State/ZIP Code Phone Number [facility] [address] [place] [address], [place] [phone] from Last 3 Months or Most Recently Relevant to Health Maintenance [place] [address] Care Teams Team MemberRelationshipSpecialtyStart DateEnd Date Ref Prov, [place] [address] PCP - General06/21/24
--- OUTSIDE RECORDS SUMMARY | 2025-02-19 03:34 | XMS_ITS | Patient Health Record ---
Author Organization [facility] [place] Address [address] [place] [address] Care Team Providers Care Iron And Steel Work Supervisor Name Role Phone None, Unknown or Primary Care Provider UnavailJenna Gomes [phone] Allergies No Known Allergies Reason For Referral No Information Medications Medication SIG (Take, Route, Frequency, Duration) Notes Start Date End Date Status Terconazole 0.8 % 1 applicatorful at b edtime Vaginal Once a day; Duration: 3 day(s) 4ActivehydrOXYzine HClActiveAbilifyActive Immunizations Vaccine Route Administration Date Status Comme nts HPV VACCINE 9 VALENT Unknown 02/13/2017 Administered HPV VACCINE 9 ANZBWFTzwlkfy88/23/2018Administered Social History Tobacco Use: Social History Observation Description Date Details (start date - stop date) Current Smoker NA - NA Tobacco Control (Standard) Question Answer Notes Tobacco use: Current smoker Problems Problem Type SNOMED Code ICD Code Onset Dates Problem Status W/U Status Risk Notes Problem Secondary amenorrhea (941710137) Secondar y amenorrhea (N91.1) Activeconfirmed Encounters Encounter Location Date Provider Diagnosis [facility] [place] [address] [place] [address] 02/18/2025 Jenna Castro [facility] [place] [place] [address] 02/06/2025deana Castro Plan Of Treatment No Information Insurance Providers Payer Name Payer Address Payer Phone Subscriber Number Group Number Insured Name Patient Relationship to Insured Coverage Start Date Coverage End Date [employer] [address] [place] [id number] [phone] [id number] Federica, AmandaNatlynda Child - Insured does not have Financial Responsibility (includes legally adopted child) Medical (General) History Medical History History ICD Code CAT
--- OUTSIDE RECORDS SUMMARY | 2025-02-19 03:34 | XMS_ITS | Encounter Summary ---
Author Organization [facility] Address [address] [place] [address] Phone Care Team Providers Care Orthophoto Tech/Draftsman Name Role Phone Unavailable Primary Care Provider Unavailabl e Encounter Details DateTypeDepartmentCare Team (Latest Contact Info)Phzpwjbasjo65/16/2025Results Follow-Up Urgent [facility] [place] [address] [facility] [address] [place] [phone] Disha Curiel PA-C [address] [facility] [address] [place], [place] [id number] Urine Culture Social History Tobacco UseTypesPacks/DayYears UsedDateSmoking Tobacco: Every DayCigarettes Smokeless Tobacco: NeverCommentsNoSex and Gender InformationValueDate RecordedSex Assigned at BirthNot on fileLegal JwwKkuqbl53/26/2022 9:45 AM EST Gender IdentityNot on fileSexual OrientationNot on filedocumented as of this encounter Functional Status * BPAnswerDate of JnegaahqhgHzhujx215/12413/07/2024 3:24 PM Alyssa Juarez MA * PulseAnswerDate of PuhhdykkgwDmeouv51342/07/2024 3:24 PM Alyssa Juarez MA documented as of this encounter Plan of Treatment Not on file documented as of this encounter Visit Diagnoses Not on filedocumented in this encounter
--- OUTSIDE RECORDS SUMMARY | 2025-02-19 03:35 | XMS_ITS | Clinical Summary ---
Author Organization [facility] Address [facility] [place] [address] Care Team Providers Care Rv Repair Technician Name Role Phone Liam Douglas Primary Care Provider [phone] Allergies Active AllergyReactionsCriticalityNoted DateCommentsCiprofloxacinOther: See Towmlmem78/13/2024 Heart palp, hard time breathing, shaking Medications MedicationSigDispense QuantityRefillsLast FilledStart DateEnd DateStatus hydrOXYzine HCl (ATARAX) 25 mg tablet Take 25 mg by mouth two times a day as needed.Active naproxen (NAPROSYN) 500 mg tablet Indications:Cervicogenic headacheTake 1 tablet by mouth once daily as needed (Headache). 30 tablet 5Active levothyroxine (SYNTHROID) 25 mcg tablet Indications:Subclinical hypothyroidismTake 1 tablet by mouth once daily. 90 tablet 503/6Active lamoTRIgine (LAMICTAL) 25 mg tablet Take 25 mg by mouth as directed.Active Active Problems ProblemNoted DateDiagnosed DateBipolar /17/2025Vasovagal syncope 05/07/2024Sinus lpjohaqlmlo00/14/2025Subclinical jullgwqpjfrjrs55/14/2025 Cervicogenic emhlhqpd01/14/2025orderline personality /13/2024nxiety 02/26/2016 Encounters DateTypeDepartmentCare UoojKhtthzqskqp25/19/2025Nurse Triage NURSE NURSING CARE PARTNER [address] [place] [address] Cuco Morales RN Qomstxtmtykw36/19/2025 Patient Msg Family Medicine [facility] [address] [place], [place] [phone] Liam Douglas, Appointment Diuisui2701/08/2025 11:00 AM EDTOffice Visit [facility] [address] [facility] [place] [address] Liam Douglas, Bipolar affective disorder, remission status unspecified (HCC) (Primary Dx); Borderline personality disorder (HCC); Chlamydia; Bacterial vaginosis; Fatigue, unspecified type01/08/20251873Vvpyui11/08/2025 Patient [facility] [address] [facility] [place] [address] Liam Douglas, Appointment Hexwgan9812/22/2024 Patient [facility] [address] [facility] [place] [address] Liam Douglas, Appointment Afdyjgy9212/20/2024Telephone [facility] [address] [facility] [place] [id number] Liam Douglas, from Last 3 Months Immunizations ImmunizationAdministration DatesNext DueHaemophilus influenzae b (Hib) vaccine, unspecified yvnlalmlorl21/28/2005,04/28/2004,03/15/2004,01/06/2004diphtheria tetanus pertussis (DTaP) vaccine, pediatric (INFANRIX)10/22/2007,04/20/2005, 04/28/2004,03/15/2004,01/06/2004hepatitis A (HepA) vaccine, adult (HAVRIX, VAQTA)10/23/2012,01/17/2012hepatitis B (HepB) vaccine, 3-dose series, age 0 yr - 19 yr (ENGERIX B-PEDS, RECOMBIVAX HB-PEDS)04/28/2004,03/15/2004,01/06/2004, 2003human papillomavirus (HPV9) vaccine, 9 valent (GARDASIL 9)02/13/2018, 02/13/2017influenza (IIV4) vaccine, age 6 mo - 64 yr, quadrivalent, PF (AFLURIA, FLUARIX, FLULAVAL, FLUZONE)02/23/2021,02/13/2018,02/13/2017influenza (LAIV4) vaccine, quadrivalent, live, intranasal (FLUMIST)02/10/2020influenza vaccine, unspecified kzhrhjyrjws50/18/2016,03/23/2015,02/04/2006measles mumps rubella (MMR) vaccine (M-M-R II, PRIORIX)10/22/2007,01/19/2005meningococcal (MenACWY- CRM) vaccine, quadrivalent (MENVEO)02/10/2020,03/23/2015meningococcal B (MenB- 4C) vaccine (BEXSERO)03/16/2020,02/10/2020pneumococcal conjugate (PCV13) vaccine, 13 valent (PREVNAR 13)10/21/2004,07/16/2004,03/15/2004,01/06/2004 poliovirus (IPV) vaccine, inactivated (IPOL)10/22/2007,04/28/2004,03/15/2004, 01/06/2004tetanus diphtheria pertussis (Tdap) vaccine, age 7+ yr (ADACEL, BOOSTRIX)11/30/2023,12/02/2013varicella (BÁRBARA) vaccine (VARIVAX)10/22/2007, 10/21/2004 Family History Medical HistoryRelationCommentsHyperthyroidismBrotherHypertensionFatherDiabetes Maternal GrandfatherDiabetesMaternal GrandmotherHashimoto DiseaseMother HypertensionPaternal GrandfatherRelationStatusCommentsBrotherFatherMaternal GrandfatherMaternal GrandmotherMotherPaternal Grandfather Social History Tobacco UseTypesPacks/DayYears UsedDateSmoking Tobacco: FormerCigarettes Smokeless Tobacco: Never Tobacco Cessation:Counseling Given: Not Answered Alcohol UseStandard Drinks/WeekCommentsYes0 (1 standard drink = 0.6 oz pure alcohol)sociallyAHC UtilitiesAnswerDate RecordedIn the past 12 months has the [employer], [employer], oil, or water [employer] threatened to shut off services in your home?No05/05/2024Social Connection and Isolation PanelAnswerDate RecordedIn a typical week, how many times do you talk on the phone with family, friends, or neighbors?Patient uyaexteg25/12/2025How often do you get together with friends or relatives?Twice a week05/05/2024How often do you attend christianity or pentecostalism services?Patient pitouaik06/12/2025Do you belong to any clubs or organizations such as christianity groups, unions, fraternal or athletic groups, or school groups?No 05/05/2024How often do you attend meetings of the clubs or organizations you belong to?Patient /12/2025re you , , , , never , or living with a partner?Never sludqpd2705/05/2024 AUDIT-CAnswerDate RecordedQ1: How often do you have a drink containing alcohol? Patient pgzuusjh49/12/2025Q2: How many drinks containing alcohol do you have on a typical day when you are drinking?Patient does not drink05/05/2024Q3: How often do you have six or more drinks on one occasion?Never05/05/2024Overall Financial Resource Strain (CARDIA)AnswerDate RecordedHow hard is it for you to pay for the very basics like food, housing, medical care, and heating?Patient /12/2025PHQ-2AnswerDate RecordedPHQ-2 kljfx944Fing[facility] [place] of Occupational Health - Occupational Stress QuestionnaireAnswerDate RecordedDo you feel stress - tense, restless, nervous, or anxious, or unable to sleep at night because yourmind is troubled all the time - these days?Very much 05/05/2024Exercise Vital SignAnswerDate RecordedOn average, how many days per week do you engage in moderate to strenuous exercise (like a brisk walk)?0 days 05/05/2024On average, how many minutes do you engage in exercise at this level?0 min05/05/2024Hunger Vital SignAnswerDate RecordedWithin the past 12 months, you worried that your food would run out before you got the money to buymore.Patient qlzzzifc13/12/2025Within the past 12 months, the food you bought just didn't last and you didn't have money to get more.Patient dilcqeey31/12/2025PRAPARE - TransportationAnswerDate RecordedIn the past 12 months, has lack of transportation kept you from medical appointments or from getting medications?No 05/05/2024In the past 12 months, has lack of transportation kept you from meetings, work, or from getting things needed for daily living?No05/05/2024 Housing Stability Vital SignAnswerDate RecordedIn the last 12 months, was there a time when you were not able to pay the mortgage or rent on time?Patient zbcpkrhi25/12/2025Number of Times Moved in the Last YearNot on file05/05/2024 Homeless in the Last YearNot on file05/05/2024rea Deprivation IndexAnswerDate RecordedNational Score (1-100), lower number is lower izll115106/18/2024State Score (1-10), lower number is lower vlzg00906/18/2024Data from: https://www.neighborhoodatlas.[facility].edu/. Last address used for fxuntryhjyn[address]/18/[address]24CommentsNoSex and Gender InformationValueDate RecordedSex Assigned at BirthNot on fileLegal SexFemale 03/27/2024 1:47 PM ESTGender IdentityNot on fileSexual OrientationNot on file Last Filed Vital Signs Vital SignReadingTime TakenCommentsBlood Ycrgonii043/7909 10:51 AM EDT Glvuo749901/08/2025 10:51 AM EFAUxvjlypciok39.7 ??C (98.1 ??F)01/08/2025 10:51 AM EDTRespiratory Rate--Oxygen Klzmcxdnvy35%01/08/2025 10:51 AM EDTInhaled Oxygen Concentration--Fclukv97.9 kg (160 lb 11.5 oz)01/08/2025 10:51 AM RLJFgynuf224.3 cm (5' 9.02 )08/29/2024 11:26 AM EDTBody Mass Index23.72008/29/2024 11:26 AM EDT Plan of Treatment Health MaintenanceDue DateLast DoneCommentsPeds To Adult Transition Initial Ganrhugaxz25/28/2016Peds To Adult Transition Annual Cihbxcuzdn91/28/2018 Depression Aiabodfgy74/28/2022HIV Mhvaxflpj40/28/2022Hepatitis C Screening 10/19/2021ovid-19 Vaccine ( - 2024- season)2024Influenza Vaccine (#1) /05/2020, 02/10/2020, 02/13/2018, Additional history existsAnnual PCP Team Chronic Disease Visit/hlamydia Screening (18-) /12/2024, 07/08/2024GC (Gonorrhea) Screening (18-)01/30/2026 01/30/2025, 07/08/2024ervical Cancer Jumefcego86DTaP,Tdap,Td Vaccine (8 - Td or Tdap)/11/2023, 12/02/2013, 10/22/2007, Additional history existsHepatitis B CijkzkwKmjmoddlx53/05/2005, 03/15/2004, 01/06/2004, Additional history existsHPV MknrxbtBvsdydcnx32/23/2018, 02/13/2017Meningococcal B SmxibtbVjecyahvp33/23/2020, 02/10/2020 Procedures Procedure NamePriorityDate/TimeAssociated DiagnosisCommentsFERRITIN BLDRoutine 01/30/2025 11:39 AM EDT Fatigue, unspecified type IRON + SENWGuejoub64/09/2025 11:39 AM EDT Fatigue, unspecified type VITAMIN B12 LCJONZrpejrf48/09/2025 11:39 AM EDT Fatigue, unspecified type TSH KLSCnvyopz82/09/2025 11:39 AM EDT Fatigue, unspecified type TARA/TRICHOMONAS MGJTImahels73/09/2025 11:39 AM EDT Chlamydia Bacterial vaginosis GONORRHEA/CHLAMYDIA PFMXEoaeswk55/09/2025 11:39 AM EDT Chlamydia Bacterial vaginosis from Last 3 Months Results * TARA/TRICHOMONAS NAAT (01/30/2025 11:39 AM EDT)ComponentValueRef RangeTest MethodAnalysis TimePerformed AtPathologist SignatureCandida species group RNA Not detectedNot detected PANTHER SYSTEM HOLOGIC 01/30/2025 8:01 PM EDTCFAIRFIELD MEDICAL CENTER LABComment:The Tara species group target includes C. albicans, C. tropicalis, C. parapsilosis, and C. dubliniensis.Tara glabrata RNANot detectedNot detected PANTHER SYSTEM HOLOGIC 01/30/2025 8:01 PM EDTCFAIRFIELD MEDICAL CENTER LABTrichomonas vaginalis RNA Not detectedNot detected PANTHER SYSTEM [facility] 01/30/2025 8:01 PM EDPREMIER HEALTH LABSpecimen (Source) Anatomical Location / LateralityCollection Method / VolumeCollection Time Received TimeSwabVAGINAL STRUCTURE / UnknownNon Blood / Rkpedeo0901/30/2025 11:39 AM EDT1 12:06 PM EDT Narrative Authorizing ProviderResult TypeResult StatusTrevor Aurora Douglas DOMICROBIOLOGY Final ResultPerforming OrganizationAddressCity/State/ZIP CodePhone Number [facility] [address] * GONORRHEA/CHLAMYDIA NAAT (01/30/2025 11:39 AM EDT)ComponentValueRef RangeTest MethodAnalysis TimePerformed AtPathologist SignatureNeisseria gonorrhoeae RNA Not detectedNot detected PANTHER SYSTEM HOLOGIC 01/30/2025 8:41 PM EDTCFAIRFIELD MEDICAL CENTER LABChlamydia trachomatis RNA Not detectedNot detected PANTHER SYSTEM HOLOGIC 01/30/2025 8:41 PM EDPREMIER HEALTH LABSpecimen (Source) Anatomical Location / LateralityCollection Method / VolumeCollection Time Received TimeSwabVAGINAL STRUCTURE / UnknownNon Blood / Hjxoxgf8101/30/2025 11:39 AM EDT1 12:06 PM EDT Narrative [facility] - 01/30/2025 8:41 PM EDT This FDA-approved assay has been modified to accept rectal swabs self-collected in a healthcare setting. For self-collected rectal swabs, the test was developed and its performance characteristics determined by the [facility]'s [facility] Path[facility] Medicine [place] ([facility]). It has not been cleared or approved by the FDA. -[facility] is regulated under CLIA as qualified to perform high-complexity testing. This test is used for clinical purposes. It should not be regarded as investigational or for research. Authorizing ProviderResult TypeResult StatusTrepayton Douglas DOMICROBIOLOGY Final ResultPerforming OrganizationAddressCity/State/ZIP CodePhone Number [facility] [place] [address], * VITAMIN B12 (01/30/2025 11:39 AM EDT)ComponentValueRef RangeTest Method Analysis TimePerformed AtPathologist SignatureVitamin [id number] - 1,245 pg/mL 01/30/2025 9:35 PM EDTCFAIRFIELD MEDICAL CENTER LABSpecimen (Source) Anatomical Location / LateralityCollection Method / VolumeCollection Time Received TimeBloodBLOOD SPECIMEN / UnknownVenipuncture / Cymfadm0101/30/2025 11:39 AM EDT1 12:06 PM EDT Narrative Authorizing ProviderResult TypeResult StatusTrepayton Douglas DOLABORATORYFinal ResultPerforming OrganizationAddressCity/State/ZIP CodePhone Number [facility] [address] [place], [place] [address] [place] [address], * THYROID STIMULATING HORMONE (01/30/2025 11:39 AM EDT)ComponentValueRef Range Test MethodAnalysis TimePerformed AtPathologist SignatureTSH3.6000.270 - 4.200 mIU/L1 9:35 PM EDPREMIER HEALTH LABComment: If the patient is , TSH reference range varies by gestational period: First Trimester (weeks 9-12): 0.180-2.990 mIU/L Second Trimester: 0.110-3.980 mIU/L Third Trimester: 0.480-4.710 mIU/L Malcolm Molina et al. A Practical Approach for the Verifications and Determination of Site- and Trimester-Specific Reference Intervals for Thyroid Function tests in . Thyroid, 2019:29:3:412-420.Rubio Jade, et al. 2017 Guidelines of the [place] Thyroid Association for the Diagnosis and Management of Thyroid Disease during and the . Thyroid, 2017:27:3:315-389. Specimen (Source)Anatomical Location / LateralityCollection Method / Volume Collection TimeReceived TimeBloodBLOOD SPECIMEN / UnknownVenipuncture / Unknown 01/30/2025 11:39 AM EDT1 12:06 PM EDT Narrative Authorizing ProviderResult TypeResult StatusTrevohenrique Douglas DOLABORATORYFinal ResultPerforming OrganizationAddressCity/State/ZIP CodePhone Number [facility] [address] [place] [id number], [place] * (ABNORMAL) IRON AND TIBC (01/30/2025 11:39 AM EDT)ComponentValueRef RangeTest MethodAnalysis TimePerformed AtPathologist KtufdnlyyCtcn0354 - 186 ug/dL 01/30/2025 9:15 PM EDTCFAIRFIELD MEDICAL [facility]ENTER ZODUQLQ647(H)232 - 386 ug/dL01/30/2025 9:15 PM EDTCFAIRFIELD MEDICAL CENTER LABTransferrin Zfhoutgbji74.015.0 - 57.0 %01/30/2025 9:15 PM EDTCFAIRFIELD MEDICAL CENTER LABSpecimen (Source)Anatomical Location / LateralityCollection Method / Volume Collection TimeReceived TimeBloodBLOOD SPECIMEN / UnknownVenipuncture / Xbtkevy2101/30/2025 11:39 AM EDT1 12:06 PM EDT Narrative Authorizing ProviderResult TypeResult StatusTrevor Aurora Douglas DOLABORATORYFinal ResultPerforming OrganizationAddressCity/State/ZIP CodePhone Number [facility] [address] [address], [place] * FERRITIN (01/30/2025 11:39 AM EDT)ComponentValueRef RangeTest MethodAnalysis TimePerformed AtPathologist ZxrtjthqfJimltoqr74.914.7 - 205.1 ng/mL01/30/2025 9:35 PM EDTCFAIRFIELD MEDICAL [facility]ENTER LABSpecimen (Source)Anatomical Location / LateralityCollection Method / VolumeCollection TimeReceived Time BloodBLOOD SPECIMEN / UnknownVenipuncture / Vfkwtnw2501/30/2025 11:39 AM EDT 01/30/2025 12:06 PM EDT Narrative Authorizing ProviderResult TypeResult StatusTrepayton Douglas DOLABORATORYFinal ResultPerforming OrganizationAddressCity/State/ZIP CodePhone Number [facility] [address] [facility] Desk [address] [address], [place] from Last 3 Months Insurance Care Teams Team MemberRelationshipSpecialtyStart DateEnd Date Liam Douglas DO [address] [place] [address] PCP - GeneralFamily Voaaznga36/13/24
--- OUTSIDE RECORDS SUMMARY | 2025-02-19 03:35 | XMS_ITS | Encounter Summary ---
Author Organization [facility] Address [address] [place] [address] Care Team Providers Care Check Airman Name Role Phone Liam Douglas Primary Care Provider [phone] Source Comments In the event this information is protected by the Federal Confidentiality of Alcohol and Drug AbusePatient Records regulations: The Federal rules restrict any use of the information to criminally investigate or prosecute any alcohol or drug abuse patient.[facility] Reason for Visit * ReasonCommentsPalpitations Encounter Details DateTypeDepartmentCare Team (Latest Contact Info)Itrutmyixla18/19/2025Nurse Triage NURSE SINGE MACHINE OPERATOR [address] [place], [place] [phone] Cuco Morales RN Palpitations Social History Tobacco UseTypesPacks/DayYears UsedDateSmoking Tobacco: FormerCigarettes Smokeless Tobacco: NeverAlcohol UseStandard Drinks/WeekCommentsYes0 (1 standard drink = 0.6 oz pure alcohol)sociallyAHC UtilitiesAnswerDate RecordedIn the past 12 months has the [employer], gas, oil, or water [employer] threatened to shut off services in your home?No05/05/2024Social Connection and Isolation PanelAnswer Date RecordedIn a typical week, how many times do you talk on the phone with family, friends, or neighbors?Patient /12/2025How often do you get together with friends or relatives?Twice a week05/05/2024How often do you attend zoroastrian or anabaptism services?Patient nllyzwuj80/12/2025Do you belong to any clubs or organizations such as zoroastrian groups, unions, fraternal or athletic el ups, or school groups?No05/05/2024How often do you attend meetings of the clubs or organizations you belong to?Patient fpufjknn54/12/2025re you , , , , never , or living with a partner?Never hvmmnid8705/05/2024UDIT-CAnswerDate RecordedQ1: How often do you have a drink containing alcohol?Patient czcymiux40/12/2025Q2: How many drinks containing alcohol do you have on a typical day when you are drinking?Patient does not drink05/05/2024Q3: How often do you have six or more drinks on one occasion? Never05/05/2024Overall Financial Resource Strain (CARDIA)AnswerDate RecordedHow hard is it for you to pay for the very basics like food, housing, medical care, and heating?Patient qaqpvhtb35/12/2025PHQ-2AnswerDate RecordedPHQ-2 score2 06/11/2024Fin[facility] [place] of Occupational Health - Occupational Stress QuestionnaireAnswerDate RecordedDo you feel stress - tense, restless, nervous, or anxious, or unable to sleep at night because yourmind is troubled all the time - these days?Very much05/05/2024Exercise Vital SignAnswerDate RecordedOn average, how many days per week do you engage in moderate to strenuous exercise (like a brisk walk)?0 days05/05/2024On average, how many minutes do you engage in exercise at this level?0 min05/05/2024Hunger Vital SignAnswerDate Recorded Within the past 12 months, you worried that your food would run out before you got the money to buymore.Patient zjorysrt25/12/2025Within the past 12 months, the food you bought just didn't last and you didn't have money to get more. Patient glvugbwj94/12/2025PRAPARE - TransportationAnswerDate RecordedIn the past 12 months, has lack of transportation kept you from medical appointments or from getting medications?No05/05/2024In the past 12 months, has lack of transportation kept you from meetings, work, or from getting things needed for daily living?No05/05/2024Housing Stability Vital SignAnswerDate RecordedIn the last 12 months, was there a time when you were not able to pay the mortgage or rent on time?Patient dijqdioc20/12/2025Number of Times Moved in the Last YearNot on file05/05/2024Homeless in the Last YearNot on file05/05/2024rea Deprivation IndexAnswerDate RecordedNational Score (1-100), lower number is lower risk76 06/18/2024State Score (1-10), lower number is lower zkwq58906/18/2024Data from: https://www.neighborhoodatlas.medicine.[facility].edu/. Last address used for wwrkmhdpnly[address]06/18/2024CommentsNoSex and Gender InformationValueDate RecordedSex Assigned at BirthNot on fileLegal SexFemale 03/27/2024 1:47 PM ESTGender IdentityNot on fileSexual OrientationNot on file documented as of this encounter Miscellaneous Notes * Telephone Encounter - Cuco Morales RN - 02/09/2025 2:03 PM EDT Reason for Conversation Palpitations Background Patient describes her heart goes from racing to very slow, she is sweating but also feels cold, andstates that it takes her a very long time to get to a standing position. Disposition Call EMS 911 Now Patient verbalized an understanding and is agreeable to plan. Patient states her parents are at home with her. Reason for Disposition Shock suspected (e.g., cold/pale/clammy skin, too weak to stand, low BP, rapid pulse) No Initial Assessment on file. No Additional Information on file. Protocols Used Heart Rate and Heartbeat Tresfobcs-Yoxtw-PV documented in this encounter Plan of Treatment Not on file documented as of this encounter Visit Diagnoses Not on filedocumented in this encounter Care Teams Team MemberRelationshipSpecialtyStart DateEnd Date Liam Douglas DO [facility] [place] [address] PCP - GeneralFamily Ungpbhuk42/13/24documented as of this encounter
--- OUTSIDE RECORDS SUMMARY | 2025-02-19 03:35 | XMS_ITS | Clinical Summary ---
Author Organization [facility] Address [address] [place] [address] Care Team Providers Care Welding Lead Burner Name Role Phone Liam Douglas MD Primary Care Provider [phone] Tania Youngblood Unavailable Allergies Active AllergyReactionsCriticalityNoted DateCommentsCiprofloxacinPalpitationsLow 06/04/2024 Medications MedicationSigDispense QuantityRefillsLast FilledStart DateEnd DateStatus levothyroxine (Synthroid, Levoxyl) 25 MCG tablet Take by mouth Daily before mealsActive hydrOXYzine HCl (Atarax) 25 MG tablet Take 25 mg by mouth every 12 (twelve) hours if needed for itchingActive FLUoxetine (PROzac) 10 MG capsule Take 10 mg by mouth DailyActive ARIPiprazole (Abilify) 2 MG tablet Take 2 mg by mouth DailyActive Social History Tobacco UseTypesPacks/DayYears UsedDateSmoking Tobacco: Never AssessedSmokeless Tobacco: Never Tobacco Cessation:Counseling Given: Not Answered CommentsUnknownSex and Gender InformationValueDate RecordedSex Assigned at BirthNot on fileLegal KigSaawsr90/30/2024 1:49 PM ESTGender IdentityNot on fileSexual OrientationNot on file Last Filed Vital Signs Vital SignReadingTime TakenCommentsBlood Bvavokip158/8204 9:21 AM EDT Xwchm7878 9:21 AM EDTTemperature--Respiratory Qjbv9869 9:21 AM EDTOxygen Pkmgejgtcw56%08/12/2024 9:21 AM EDTInhaled Oxygen Concentration-- Cxmegt01.4 kg (153 lb)08/12/2024 9:21 AM OLTPzekhd653.3 cm (5' 9 )08/12/2024 9:21 AM EDTBody Mass Index22.59008/12/2024 9:21 AM EDT Plan of Treatment Not on file Insurance Care Teams Team MemberRelationshipSpecialty[place] [address] [place] [address] PCP - GeneralFamily Oxmekjvj11/30/24 [place] [address] [place] [address] Physician AssistantNeurology08/12/24
--- OUTSIDE RECORDS SUMMARY | 2025-02-19 03:35 | XMS_ITS | Clinical Summary ---
Author Organization [facility] Address [address] [place] [address] Phone Care Team Providers Care Machine Maintenance Supervisor Name Role Phone Unavailable Primary Care Provider Unavailabl e Allergies Active AllergyReactionsCriticalityNoted DateCommentsCiprofloxacinOther, BmipinlypipwSrw63/13/2024 Heart palp, hard time breathing, shaking Other Reaction(s): Other: See Comments Heart palp, hard time breathing, shaking Medications MedicationSigDispense QuantityRefillsLast FilledStart DateEnd DateStatus ARIPiprazole (Abilify) 2 mg tablet Take 2 mg by mouth once daily at bedtime.Active FLUoxetine (PROzac) 10 mg capsule Take 10 mg by mouth once daily.03/27/2024ctive hydrOXYzine HCL (Atarax) 25 mg tablet TAKE 1 TWICE A DAY NEEDEDActive levothyroxine (Synthroid, Levoxyl) 25 mcg tablet Take 25 mcg by mouth once daily.Active midodrine (Proamatine) 5 mg tablet Take 5 mg by mouth 3 times a day.Active naproxen (Naprosyn) 500 mg tablet TAKE 1 TABLET BY MOUTH ONCE DAILY NEEDED (HEADACHE).Active Active Problems No known active problems Encounters DateTypeDepartmentCare FlzaIzzfmyqxgod44/04/2025 3:20 PM EDTOffice Visit Urgent Care [place] [id number] [facility] [address] [place] [address] Angelita Saunders APRN-AXEL Vaginal burning (Primary Dx)12/07/2024Results Follow-Up Urgent [facility] [place] [address] [facility] [address] [place] [address] Disha Curiel PA-C Urine Pbcoafx4612/04/2024 4:45 PM EDTOffice Visit [facility]gent [facility] [place] [address] [facility] [address] [place] [address] Jeanette Mercado, TECH WRITER-WOOD TOOL MAKER Acute cystitis without hematuria (Primary Dx); Burning with gkeqhlprr28/13/2025Travelfrom Last 3 Months Social History Tobacco UseTypesPacks/DayYears UsedDateSmoking Tobacco: Every DayCigarettes Smokeless Tobacco: Never Tobacco Cessation:Ready to Q uit: Not Asked; Counseling Given: Not Answered CommentsNoSex and Gender InformationValueDate RecordedSex Assigned at BirthNot on fileLegal PltHtrurf90/26/2022 9:45 AM ESTGender IdentityNot on file Sexual OrientationNot on file Last Filed Vital Signs Vital SignReadingTime TakenCommentsBlood Xlfuaiwz222/24393 3:24 PM EDT Dahmk29458 3:24 PM NBYJqwmdndxivo15.8 ??C (98.2 ??F)12/26/2024 3:24 PM EDTRespiratory Nhhr3978 3:24 PM EDTOxygen Egqutnkacn39%12/26/2024 3:24 PM EDTInhaled Oxygen Concentration--Weight--Height--Body Mass Index-- Plan of Treatment Health MaintenanceDue DateLast DoneCommentsHIV Hfwavvyne41/28/2004TSH Level 2003Hearing Screening (#1)2007Pneumococcal Vaccine: Pediatrics and At-Risk Adult Patients (1 of 1 - PPSV23, PCV20, or PCV21), 07/16/2004, 03/15/2004, Additional history existsHepatitis C Tpzfjhles73/28/2022 HPV/Ankhwf7410/19/2024Influenza Vaccine (#1)/05/2020, 02/10/2020, 02/13/2018, Additional history existsCOVID-19 Vaccine (1 - season) 2024early Adult Rubefekv917/06/2024, 11/30/2023, 02/23/2021, Additional history existsCervical Cancer Sjzhynuxm50/03/2028Pap Smear10/25/2027 10/24/2024Lipid Panel, 2DTaP/Tdap/Td Vaccines (8 - Td or Tdap)/11/2023, 12/02/2013, 10/22/2007, Additional history existsZoster Vaccines (1 of 2), 10/21/2004Hepatitis B EwujsrlzKtrvdbjxt78/05/2005, 04/28/2004, 03/15/2004, Additional history exists HIB GjaigxdkLnvrzpwjm95/28/2005, 04/28/2004, 03/15/2004, Additional history existsIPV EsefoveqJdbdqgfzt95/30/2008, 04/28/2004, 04/28/2004, Additional history existsMMR WcnjbmqgDehhsfgxw72/30/2008, 01/19/2005Hepatitis A Vaccines Htcrwnkuu65/02/2013, 01/17/2012HPV PsgqjpntNumabmqbd00/23/2018, 02/13/2017 Meningococcal LxlwekgFieoayxau95/19/2020, 03/23/2015Meningococcal B Vaccine Tmxqkzyuj74/23/2020, 02/10/2020Chlamydia ScreeningDiscontinuedRotavirus Vaccines Aged OutNo longer eligible based on patient's age to complete this topic Procedures Procedure NamePriorityDate/TimeAssociated DiagnosisCommentsPOCT BV BLUE RAPID - BACTERIAL IZMLVNIFPCyrzsyk10/13/2025 4:55 PM EDT Burning with urination POCT , BFWELWmbcjye60/13/2025 4:55 PM EDT Burning with urination POCT UA AUTOMATED MANUALLY DFXVLFYTDdrilpn64/13/2025 4:55 PM EDT Burning with urination URINE LPIIJGTNfvmqla66/13/2025 4:30 PM EDT Burning with urination LIPID OMSOPFzrvrfk05/27/2022 7:35 AM EDT from Last 3 Months or Most Recently Relevant to Health Maintenance Results * (ABNORMAL) POCT UA Automated manually resulted (12/04/2024 4:55 PM EDT) ComponentValueRef RangeTest MethodAnalysis TimePerformed AtPathologist SignaturePOC Color, UrineYellowStraw, Yellow, Light-YellowPOC Appearance, UrineClearClearPOC Glucose, UrineNEGATIVENEGATIVE mg/dlPOC Bilirubin, Urine NEGATIVENEGATIVEPOC Ketones, UrineNEGATIVENEGATIVE mg/dlPOC Specific Onyx, Urine1.0151.005 - 1.035POC Blood, UrineNEGATIVENEGATIVEPOC PH, Urine6.5No Reference Range Established PHPOC Protein, UrineNEGATIVENEGATIVE mg/dlPOC Urobilinogen, Urine0.20.2, 1.0 EU/DLPoc Nitrite, UrineNEGATIVENEGATIVEPOC Leukocytes, UrineMODERATE (2+)(A)NEGATIVESpecimen (Source)Anatomical Location / LateralityCollection Method / VolumeCollection TimeReceived TimeUrine 12/04/2024 4:55 PM EDT Narrative Authorizing ProviderResult TypeResult StatusMujoanna Mercado TECH WRITER-CNPPOINT OF CARE TEST ENTER/EDIT ORDERABLESFinal Result * POCT BV Blue Rapid - Bacterial Vaginitis manually resulted (12/04/2024 4:55 PM EDT)ComponentValueRef RangeTest MethodAnalysis TimePerformed AtPathologist SignaturePOC Bacterial Vaginitis (Rapid)NegativeNegativeSpecimen (Source) Anatomical Location / LateralityCollection Method / VolumeCollection Time Received TimeVaginal Fluid12/04/2024 4:55 PM EDT Narrative Authorizing ProviderResult TypeResult StatusMuhamjenae Mercado TECH WRITER-CNPPOINT OF CARE TEST ENTER/EDIT ORDERABLESFinal Result * POCT , urine manually resulted (12/04/2024 4:55 PM EDT)ComponentValue Ref RangeTest MethodAnalysis TimePerformed AtPathologist SignaturePreg Test, UrNegativeNegativeSpecimen (Source)Anatomical Location / LateralityCollection Method / VolumeCollection TimeReceived UeldOwjrx27/13/2025 4:55 PM EDT Narrative Authorizing ProviderResult TypeResult StatusMuhamad Mell Mercado TECH WRITER-CNPPOINT OF CARE TEST ENTER/EDIT ORDERABLESFinal Result * Urine Culture (12/04/2024 4:30 PM EDT)ComponentValueRef RangeTest Method Analysis TimePerformed AtPathologist SignatureCULTURE, URINE, ROUTINESEE NOTE [facility] Hospital [facility] PhiladelphiaComment: ??CULTURE, URINE, ROUTINE ?Micro Number: ?[id number] ??Test Status: ? Final ??Specimen Source: ?? Urine ??Specimen Quality: ??Adequate ??Result: ?No Growth Specimen (Source)Anatomical Location / LateralityCollection Method / Volume Collection TimeReceived TimeUrineUrine specimen / Yindzdq0212/04/2024 4:30 PM EDT 12/05/2024 4:40 AM EDT Narrative Authorizing ProviderResult TypeResult StatusMujoanna Mercado APRN-CNPLAB MICROBIOLOGY - GENERAL ORDERABLESFinal ResultPerforming OrganizationAddress City/State/ZIP CodePhone Number [facility] [address] [facility], [address] [place] [address] * Lipid Panel (12/18/2021 7:35 AM EDT)ComponentValueRef RangeTest MethodAnalysis TimePerformed AtPathologist TeirgsiisDhdaknfpugd2620 - 199 mg/dLPHELPS MEMORIAL [facility] LABComment: . ?AGE ?DESIRABLE ?? BORDERLINE HIGH ?? HIGH 0-19 Y 0 - 169 170 - 199 >/= 200 20-24 Y 0 - 189 190 - 224 >/= 225 >24 Y 0 - 199 200 - 239 >/= 240 All ranges are based on fasting samples. Specific therapeutic targets will vary based on patient-specific cardiac risk. . Pediatric guidelines reference:Pediatrics 2011, 128(S5). Adult guidelines reference: NCEP ATPIII Guidelines, ??SANDEEP 2001, 258:2486-97 . Venipuncture immediately after or during the administration of Metamizole may lead to falsely low results. Testing should be performed immediately prior to Metamizole dosing. HDL50.4mg/dLPHELPS MEMORIAL HOSPITAL LABComment: . ?AGE ?VERY LOW ?? LOW ? NORMAL ?HIGH ?? 0-19 Y < 35 < 40 40-45 ---- 20-24 Y ---- < 40 >45 ---- >24 Y ---- < 40 40-60 >60 . Cholesterol/HDL Ratio2.3GSEAVIEW HOSPITAL LABComment: REF VALUES DESIRABLE < 3.4 HIGH RISK > 5.0 NSG459 - 109 mg/dLPHELPS MEMORIAL [facility]OS[facility] LABComment: . ? NEAR ?BORD ?AGE ?DESIRABLE ??OPTIMAL ?HIGH ? HIGH ? VERY HIGH 0-19 Y 0 - 109 --- 110-129 >/= 130 ---- 20-24 Y 0 - 119 --- 120-159 >/= 160 ---- >24 Y 0 - 99 100-129 130-159 160-189 >/=190 . VLDL60 - 40 mg/dLPHELPS MEMORIAL [facility] CNELmivirkmkkdms614 - 149 mg/[facility] LABComment: . ?AGE ?DESIRABLE ?? BORDERLINE HIGH ?? HIGH ? VERY HIGH 0 D-90 D ?19 - 174 ? ---- ? ---- ?---- 91 D- 9 Y 0 - 74 [...] be performed immediately prior to Metamizole dosing. Non HDL Hkcohwmyrnm165 - 119 mg/dLPHELPS MEMORIAL [facility]OS[facility] LABComment: ?AGE ?DESIRABLE ?? BORDERLINE HIGH ?? HIGH ? VERY HIGH 0-19 Y 0 - 119 120 - 144 >/= 145 >/= 160 20-24 Y 0 - 149 150 - 189 >/= 190 ---- >24 Y 30 MG/DL ABOVE LDL CHOLESTEROL GOAL . Specimen (Source)Anatomical Location / LateralityCollection Method / Volume Collection TimeReceived Time12/18/2021 7:35 AM EDT12/18/2021 7:43 AM EDT Narrative Authorizing ProviderResult TypeResult StatusEdna Worley MDLAB BLOOD ORDERABLESFinal ResultPerforming OrganizationAddressCity/State/ZIP CodePhone Number [facility] [address] [place], [place] [phone] from Last 3 Months or Most Recently Relevant to Health Maintenance Insurance * Guarantor: Ekta Stallworth TypeRelation to PatientDate of BirthPhone Billing AddressPersonal/YbtfjeMhxl49/28/2006 [address] [place] [address]
--- OUTSIDE RECORDS SUMMARY | 2025-02-19 03:35 | XMS_ITS | Encounter Summary ---
Author Organization [facility] Address [address] [place], [place] [address] Care Team Providers Care Biblical Studies Professor Name Role Phone Liam Douglas DO Primary Care Provider [phone] Source Comments In the event this information is protected by the Federal Confidentiality of Alcohol and Drug AbusePatient Records regulations: The Federal rules restrict any use of the information to criminally investigate or prosecute any alcohol or drug abuse patient.[facility] Encounter Details DateTypeDepartmentCare Team (Latest Contact Info)Djgyvebtdvt42/19/2025 Patient Msg Family Medicine [place] [phone] Liam Douglas DO [address] [place] [address] Appointment Request Social History Tobacco UseTypesPacks/DayYears UsedDateSmoking Tobacco: FormerCigarettes Smokeless Tobacco: NeverAlcohol UseStandard Drinks/WeekCommentsYes0 (1 standard drink = 0.6 oz pure alcohol)sociallyAHC UtilitiesAnswerDate RecordedIn the past 12 months has the electric, gas, oil, or water company threatened to shut off services in your home?No05/05/2024Social Connection and Isolation PanelAnswer Date RecordedIn a typical week, how many times do you talk on the phone with family, friends, or neighbors?Patient tsxnzbuu26/12/2025How often do you get together with friends or relatives?Twice a week05/05/2024How often do you attend methodist or latter day services?Patient txshcvei35/12/2025Do you belong to any clubs or organizations such as methodist groups, unions, fraternal or athletic el ups, or school groups?No05/05/2024How often do you attend meetings of the clubs or organizations you belong to?Patient bacarfrs38/12/2025re you , , , , never , or living with a partner?Never nsjlwsb0505/05/2024UDIT-CAnswerDate RecordedQ1: How often do you have a drink containing alcohol?Patient ftczxbeg73/12/2025Q2: How many drinks containing alcohol do you have on a typical day when you are drinking?Patient does not drink05/05/2024Q3: How often do you have six or more drinks on one occasion? Never05/05/2024Overall Financial Resource Strain (CARDIA)AnswerDate RecordedHow hard is it for you to pay for the very basics like food, housing, medical care, and heating?Patient uvlromzw86/12/2025PHQ-2AnswerDate RecordedPHQ-2 score2 06/11/2024[facility] [place] [facility] Occupational Health - Occupational Stress QuestionnaireAnswerDate [...] before you got the money to buymore.Patient puyzspts58/12/2025Within the past 12 months, the food you bought just didn't last and you didn't have money to get more. Patient /12/2025PRAPARE - TransportationAnswerDate RecordedIn the past 12 months, [...] pay the mortgage or rent on time?Patient hqknonub57/12/2025Number of Times Moved in the Last YearNot on file05/05/2024Homeless in the Last YearNot on file05/05/2024rea Deprivation IndexAnswerDate RecordedNational Score (1-100), lower number is lower risk76 06/18/2024State Score (1-10), lower number is lower bkww74406/18/2024Data from: https://www.neighborhoodatlas.medicine.[facility].edu/. Last address used for arpegacopll[address]06/18/2024CommentsNoSex and Gender InformationValueDate RecordedSex Assigned at BirthNot on fileLegal SexFemale 03/27/2024 1:47 PM ESTGender IdentityNot on fileSexual OrientationNot on file documented as of this encounter Plan of Treatment Not on file documented as of this encounter Visit Diagnoses Not on filedocumented in this encounter Care Teams Team MemberRelationshipSpecialtyStart DateEnd Date Liam Douglas DO [address] [place] [address] PCP - GeneralFamily Cwkansaj65/13/24documented as of this encounter
--- NOTE | 2025-02-19 03:42 | PC.NURSE ---
i gave this patient verbal and paper discharge orders and this patient voices yes to understanding these. at time of discharge this patient voices no concerns, needs and shows no signs of distress. i informed this patient the medication that was given to her in the er dept, she is not operate a automobile, machinery, go to work for at next 8 to 10 hours
== END 2025-02-19 03:39 | disposition home or self-care (01) ==
LOC: ER 03:31
PROVIDERS: Emergency Provider Student in an Organized Health Care Education/Training Program; PCP Family Medicine
DX: F41.9 Anxiety disorder, unspecified (principal); Z79.899 Other long term (current) drug therapy
CPT/HCPCS: 99283

== ENCOUNTER 2025-03-08 20:22 | Emergency (ER) | payer OTHER, SELFPAY ==
--- OUTSIDE RECORDS SUMMARY | 2024-02-07 05:25 | XMS_ITS ---
Author Organization The 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 [address] 02/07/2024 Lab Provider Plan Of Treatment No Information Progress Notes * Trice STALLWORTHDOB: 4 (19 yo F)Acc No.[id number]:02/07/2024 UNLOCKED PROGRESS NOTE Progress Note Patient: Trice FITCH :?Lab ProviderDOB:2005???Age:18 Y???Sex: FemaleDate:02/07/2024hone:[phone]:124 IAN MORENO [id number]:Unknown or NoneCheck In:10:23 AM ESTCheck Out:10:30 AM EST Subjective: * Chief Complaints: * 1 . Mlw. * Medical History: Objective: * Vitals: Assessment: Plan: * Treatment: * * Electronic signature of Lab Provider on 03/08/2025 at 09:50 PM ESTSign off status: PendingVisit Status:?CHK (Check Out) * Provider: Jesse lagunas Provider Date: Generated for Printing/Faxing/eTransmitting on:?03/08/2025 09:50 PM EST
--- OUTSIDE RECORDS SUMMARY | 2025-03-06 19:41 | XMS_ITS | Encounter Summary ---
Author Organization [facility] tem Address [id number] [place] [address] Care Team Providers Care Appointment Specialist Name Role Phone Ref Prov, Not In System Primary Care Provider Un available Reason for Visit * ReasonCommentsMental Health Problem Encounter Details DateTypeDepartmentCare Team (Latest Contact Info)Yblurhgobrj05/13/2025 7:41 PM EST - 03/06/2025 7:44 PM [facility] [address] [place] [address] Zachary Steele MD [address] [place], [place] [id number] Discharge Disposition: Left Without Treatment Social History Tobacco UseTypesPacks/DayYears UsedDateSmoking Tobacco: FormerCigarettes0.51.1 Started: 01/2024Smokeless Tobacco: NeverAlcohol UseStandard Drinks/WeekComments Yes0 (1 standard drink = 0.6 oz pure alcohol)sociallyPHQ-2AnswerDate Recorded Total Skosr8778/23/2018ChildcareAnswerDate DbswilweIzstyqqgyOcpxcak12/10/2019 EmploymentAnswerDate ZssbutfeMmmsayjlxlXfopjmh01/10/2019Hunger ScreeningAnswer Date RecordedWithin the past 12 months we worried whether our food would run out before we got money to buy more.Never True06/19/2024Within the past 12 months the food we bought just didn't last and we didn't have money to get more.Never True06/19/2024Purpose - LifeAnswerDate RecordedPurpose and direction in life Uxyfwbd90/10/2021CommentsNoSex and Gender InformationValueDate Recorded Sex Assigned at BirthNot on fileLegal IuqEerpaa68/04/2015 3:17 PM EDTGender IdentityNot on fileSexual OrientationNot on filedocumented as of this encounter Last Filed Vital Signs Vital SignReadingTime TakenCommentsBlood Wagupkqx422/9503/06/2025 7:25 PM EST Csubk032603/06/2025 7:25 PM IAOQsgrjmkwwzg33 ??C (98.6 ??F)03/06/2025 7:25 PM EST Respiratory Rjcs830205/06/2024 7:25 PM ESTOxygen Cceqjmozjv47%03/06/2025 7:25 PM ESTInhaled Oxygen Concentration--Zspbgn39.8 kg (165 lb)03/06/2025 7:25 PM EST Vtjxxx904.3 cm (5' 9 )03/06/2025 7:25 PM ESTBody Mass Index24.37105/06/2024 7:25 PM ESTdocumented in this encounter Medications at Time of Discharge MedicationSigDispense QuantityRefillsLast FilledStart DateEnd Date ARIPiprazole (ABILIFY) 2 mg tablet Take 1 tablet (2 mg total) by mouth. FLUoxetine (PROzac) 10 mg capsule Take 1 capsule (10 mg total) by mouth in the morning.03/27/2024 hydrOXYzine (ATARAX) 25 mg tablet Take 1 tablet (25 mg total) by mouth as needed in the morning and 1 tablet (25 mg total) as needed in the evening.02/07/2020 levothyroxine (SYNTHROID, LEVOTHROID) 25 MCG tablet Take 1 tablet (25 mcg total) by mouth in the morning.05/07/2024 norethindrone ac-eth estradioL (JUNE05/13, ,) 1-20 mg-mcg per tablet Take 1 tablet by mouth in the morning. 21 tablet 12010/24/2024documented as of this encounter ED Notes * Julia Mitchell RN - 03/06/2025 7:25 PM EST This RN begins triage process and vitals, but patient is unsure if she wanted to be seen. Pt voicesseveral concerns and is concerned about drinking while on mental health medications. This RN statesthat patient has the choice to be seen by the physician if she would like to do so for evaluation. Pt states that she will be fine and decides that she would no longer like to be seen and would like to go home. This RN states to patient that if she feels like she needs to be seen that we are alwayshere to evaluate her. Pt denies wanting to harm herself or others. Pt leaves ED alert and oriented and with steady gait, breathing equal and unlabored. documented in this encounter Plan of Treatment Not on file documented as of this encounter Visit Diagnoses Not on filedocumented in this encounter Additional Health Concerns AssessmentNoted TimePHQ-9 Depression Total Score: 111 4:00 PM EDT documented as of this encounter Care Teams Team MemberRelationshipSpecialtyStart DateEnd Date Ref Prov, [place] [address] PCP - General06/21/24documented as of this encounter
--- OUTSIDE RECORDS SUMMARY | 2025-03-08 17:55 | XMS_ITS | Encounter Summary ---
Author Organization [facility] [place] Address [address] [place] [address] Phone Care Team Providers Care Pocket Machine Operator Name Role Phone Unavailable Primary Care Provider Unavailabl e Reason for Visit * ReasonCommentsCoughComplaint of cough, wheezing since today. Encounter Details DateTypeDepartmentCare Team (Latest Contact Info)Bbplalxgerc31/15/2025 5:55 PM ESTOffice Visit [facility] [place] [address] [facility] [address] [place] [address] Disha Curiel PA-C [address] [facility] [address] [place], [place] [id number] Viral URI (Primary Dx); Suspected COVID-19 virus infection Social History Tobacco UseTypesPacks/DayYears UsedDateSmoking Tobacco: Every DayCigarettes Smokeless Tobacco: NeverCommentsNoSex and Gender InformationValueDate RecordedSex Assigned at BirthNot on fileLegal IgtBvqubi53/26/2022 9:45 AM EST Gender IdentityNot on fileSexual OrientationNot on filedocumented as of this encounter Last Filed Vital Signs Vital SignReadingTime TakenCommentsBlood Omzphrct542/8111 5:59 PM EST Xuzxf5435 5:59 PM LRWWbpxqvpcxdw63 ??C (98.6 ??F)03/08/2025 5:59 PM EST Respiratory Yamo6058 5:59 PM ESTOxygen Rlecpylmhj01%03/08/2025 5:59 PM ESTInhaled Oxygen Concentration--Weight--Height--Body Mass Index--documented in this encounter Functional Status * BPAnswerDate of RrqwulmkohBkutta596/8111 5:59 PM Shelli Hurd * PulseAnswerDate of GhtbfqwqomYifwir5075 5:59 PM Shelli Hurd documented as of this encounter Patient Instructions * Patient Instructions* Disha Curiel PA-C - 03/08/2025 5:55 PM EST Testing was negative for COVID, influenza, RSV and rhinovirus documented in this encounter Progress Notes * Disha Curiel PA-C - 03/08/2025 5:55 PM EST Subjective Patient ID: rTice Stallworth is a 19 y.o. female. They present today with a chief complaint of Cough (Complaint of cough, wheezing since today. ). History of Present Illness Patient presents for evaluation of cough for the past day or 2. She has had some sore throat, occasional chest tightness and wheezing as well as ear pressure. Patient denies any fevers or chills, significant congestion or runny nose or ear pain. She states she has never been diagnosed with asthma but has been previously prescribed an albuterol inhaler for the past infection. She did try using this without relief of symptoms. She has had prior tonsillectomy. She does admit to vaping. Cough Associated symptoms include a sore throat and wheezing. Pertinent negatives include no chills, ear pain (bilateral ear pressure), fever or rhinorrhea. Past Medical History Allergies as of 03/08/2025 - Reviewed 03/08/2025 Allergen Reaction Noted Ciprofloxacin Other and Palpitations 04/05/2024 Prescriptions Prior to Admission[1] Medical History[2] Surgical History[3] reports that she has been smoking cigarettes. She has never used smokeless tobacco. Review of Systems Review of Systems Constitutional: Negative for chills and fever. HENT: Positive for sore throat. Negative for congestion, ear pain (bilateral ear pressure) and rhinorrhea. Respiratory: Positive for cough, chest tightness and wheezing. Objective Vitals: 03/08/25 1759 BP: 116/81 Pulse: 97 Resp: 17 Temp: 37 ??C (98.6 ??F) TempSrc: Oral SpO2: 98% No LMP recorded. Physical Exam Constitutional: General: She is not in acute distress. Appearance: Normal appearance. HENT: Right Ear: Tympanic membrane, ear canal and external ear normal. Left Ear: Tympanic membrane, ear canal and external ear normal. Nose: Congestion present. No rhinorrhea. Mouth/Throat: Mouth: Mucous membranes are moist. Pharynx: No pharyngeal swelling, oropharyngeal exudate or posterior oropharyngeal erythema. Tonsils: No tonsillar exudate or tonsillar abscesses. Eyes: General: Right eye: No discharge. Left eye: No discharge. Conjunctiva/sclera: Conjunctivae normal. Cardiovascular: Rate and Rhythm: Normal rate and regular rhythm. Pulses: Normal pulses. Heart sounds: Normal heart sounds. Pulmonary: Effort: Pulmonary effort is normal. No respiratory distress. Breath sounds: Normal breath sounds. No wheezing, rhonchi or rales. Neurological: Mental Status: She is alert and oriented to person, place, and time. Procedures Point of Care Test & Imaging Results from this visit Results for orders placed or performed in visit on 03/08/25 POCT SPOTFIRE R/ST Panel Mini w/COVID ([employer]) manually resulted Specimen: Swab Result Value Ref Range POC Sars-Cov-2 PCR Negative Negative POC Respiratory Syncytial Virus PCR Negative Negative POC Influenza A Virus PCR Negative Negative POC Influenza B Virus PCR Negative Negative POC Human Rhinovirus PCR Negative Negative Imaging No results found. Cardiology, Vascular, and Other Imaging No other imaging results found for the past 2 days Diagnostic study results (if any) were reviewed by Disha Curiel PA-C. Assessment/Plan Allergies, medications, history, and pertinent labs/EKGs/Imaging reviewed by Disha Curiel PA-C. Medical Decision Making Presents today for evaluation of cough with reported chest tightness that began today. Spot fire COVID testing was done and was negative for COVID, influenza, RSV and rhinovirus. Discussed symptoms are consistent with a likely viral upper respiratory illness. Reassured there are no signs of secondary bacterial infection like otitis media, sinusitis or pneumonia. Patient's oxygen saturation is 98%on room air. She is not in any acute respiratory distress at time of visit and has no adventitious lung sounds on physical examination. Rx for tessalon for cough relief. May continue with albuterol inhaler as needed. Discussed typical length of viral upper respiratory illness typically between 7 days. Discussed follow-up with PCP or here if symptoms not improving. Case Staffing Case does not need staffing per [facility] case staffing policy Orders and Diagnoses Diagnoses and all orders for this visit: Viral URI - benzonatate (Tessalon) 200 mg capsule; Take 1 capsule (200 mg) by mouth 3 times a day as needed for cough. Do not crush or chew. Suspected COVID-19 virus infection - POCT SPOTFIRE R/ST Panel Mini w/COVID ([facility]) manually resulted Medical Admin Record Patient disposition: Home Electronically signed by Disha Curiel PA-C 6:35 PM [1] (Not in a hospital admission) [2] No past medical history on file. [3] No past surgical history on file. documented in this encounter Plan of Treatment Not on file documented as of this encounter Procedures Procedure NamePriorityDate/TimeAssociated DiagnosisCommentsSPOTFIRE R/ST PANEL MINI W/VDCZHJvggmed56/15/2025 6:21 PM EST Suspected COVID-19 virus infection documented in this encounter Results * POCT SPOTFIRE R/ST Panel Mini w/COVID ([facility]) manually resulted (03/08/2025 6:21 PM EST)ComponentValueRef RangeTest MethodAnalysis Time Performed AtPathologist SignaturePOC Sars-Cov-2 PCRNegativeNegativePOC Respiratory Syncytial Virus PCRNegativeNegativePOC Influenza A Virus PCR NegativeNegativePOC Influenza B Virus PCRNegativeNegativePOC Human Rhinovirus PCRNegativeNegativeSpecimen (Source)Anatomical Location / LateralityCollection Method / VolumeCollection TimeReceived LryqFsui16/15/2025 6:21 PM EST Narrative Authorizing ProviderResult TypeResult StatusArcarolina KERNOINT OF CARE TEST ENTER/EDIT ORDERABLESFinal Result documented in this encounter Visit Diagnoses Diagnosis Viral URI- Primary Acute upper respiratory infections of unspecified site Suspected COVID-19 virus infection documented in this encounter
[2025-03-08 20:40] VITALS: BP 116/72; PULSE 94; TEMP 36.9; O2SAT 99; BMI 24.4
--- NOTE | 2025-03-08 21:01 | ED_ITS ---
HPI HPI - General Adult General Chief complaint: Psychiatric Symptoms Stated complaint: PSYCHIATRIC ISSUES Time Seen by Provider: 03/08/25 20:47 Source: patient Mode of arrival: walk-in Limitations: no limitations History of Present Illness HPI narrative: 19-year-old female presented to the emergency department with thoughts of hurting herself. She states that she has health anxiety and is under treatment for. She states that she takes medication and sees a counselor. She sometimes has thoughts of hurting herself but has not done anything to harm herself in any fashion today. Denies drug or alcohol use. It is not clear when the symptoms started. Related Data Home Medications ?Medication ?Instructions ?Recorded ?Confirmed hydroxyzine PO DAILY 04/11/24 levothyroxine 25 mcg tablet 25 mcg PO DAILY 11/09/24 1 05/08/24 lamotrigine 25 mg tablet 25 mg PO DAILY 02/09/2502/22 albuterol sulfate 90 mcg/actuation 2 puff inhalation Q 4H PRN 03/08/25 03/08/25 aerosol inhaler shortness of breath or wheez ing aripiprazole 2 mg tablet 2 mg PO HS 03/08/25 03/08/25 Allergies Allergy/AdvReac Type Severity Reaction Status Date / Time ciprofloxacin (From Cipro) Allergy Unknown Rash Verified 03/08/25 20:46 Opioid HPI Opioid Management Most Recent Opioid Data: Last Pain Scale 5 02/09/25, 14:57 Ur Phencyclidine Scrn, (NEGATIVE) Negative Today, 21:22 Review of Systems ROS Narrative A ten point review of systems is negative except as noted above. PFSH PFSH Social History Little interest or pleasure in doing things: more than half the days Feeling down, depressed, or hopeless: more than half the days Exam Narrative Exam Narrative: Nurses note and vital signs reviewed General:The patient appears well and in no apparent distress.Patient is resting comfortably on cart. Skin:Warm, dry, no pallor noted.There is no rash noted. Head:Normocephalic, atraumatic Eye: Normal conjunctiva, no drainage, EOMI. PERRL Ears, Nose, Mouth, and Throat: oral mucosa is moist. Nares patent. Cardiovascular:Regular Rate and Rhythm Respiratory:Patient is in no distress, no accessory muscle use, lungs are clear to auscultation, no wheezing, rales or rhonchi Back:non-tender GI: Soft and nontender Musculoskeletal: The patient has no evidence of calf tenderness, no pitting edema, symmetrical pulses noted bilaterally Neurological:A&O, normal speech Psychiatric:Cooperative Constitutional Vital Signs, click to edit/add: Last Vital Signs Temp 98.5 F 03/08/25 20:40 Pulse 94 H 03/08/25 20:40 Resp 16 03/08/25 20:40 BP 116/72 03/08/25 20:40 Pulse Ox 99 03/08/25 20:40 O2 Del Method Room Air 03/08/25 20:40 Course Vital Signs Vital signs: Vital Signs Temperature 98.5 F 03/08/25 20:40 Pulse Rate 94 H 03/08/25 20:40 Respiratory Rate 16 03/08/25 20:40 Blood Pressure 116/72 03/08/25 20:40 Pulse Oximetry 99 03/08/25 20:40 Oxygen Delivery Method Room Air 03/08/25 20:40 Temperature 98.5 F 03/08/25 20:40 Pulse Rate 94 H 03/08/25 20:40 Respiratory Rate 16 03/08/25 20:40 Blood Pressure 116/72 03/08/25 20:40 Pulse Oximetry 99 03/08/25 20:40 Oxygen Delivery Method Room Air 03/08/25 20:40 Medical Decision Making MDM Narrative Medical decision making narrative: The patient is medically cleared and has been interviewed by mental health services. She has been cleared to go home. Differential Diagnosis Differential Diagnosis: Anxiety Lab Data Lab results reviewed: Yes I reviewed the patient's lab results Labs: Lab Results 03/08/25 03/08/25 Range/Units 21:20 21:22 WBC 7.8 (4.0-11.0) 10^3/uL RBC 4.73 (4.20-5.40) 10^6/uL Hgb 14.1 (12.0-16.0) g/dL Hct 40.4 (36.0-48.0) % MCV 85.4 (81.0-99.0) fL MCH 29.8 (26.7-34.0) pg MCHC 34.9 (29.9-35.2) g/dL RDW 11.5 (11.0-15.0) % Plt Count 331 (150-450) 10^3/uL MPV 9.1 L (9.5-13.5) fL Neut % (Auto) 57.5 (43.0-75.0) % Lymph % (Auto) 27.4 (20.5-60.0) % [place] % (Auto) 7.3 (1.7-12.0) % Eos % (Auto) 6.4 (0.9-7.0) % Baso % (Auto) 1.1 (0.2-2.0) % Neut # (Auto) 4.5 (1.4-6.5) 10^3/uL Lymph # (Auto) 2.2 (1.2-3.8) 10^3/uL [place] # (Auto) 0.6 (0.3-0.8) 10^3/uL Eos # (Auto) 0.5 (0.0-0.7) 10^3/uL Baso # (Auto) 0.1 (0.0-0.1) 10^3/uL Abs Immat Gran (auto) 0.02 (0.00-0.03) 10^3/uL Imm/Tot Granulo (auto) 0.3 (0.0-0.5) % Sodium 140 (136-145) mmol/L Potassium 4.0 (3.5-5.1) mmol/L Chloride 103 (98-107) mmol/L Carbon Dioxide 26.7 (21.0-32.0) mmol/L Anion Gap 14.3 BUN 14.0 (7.0-18.0) mg/dL Creatinine 0.79 (0.55-1.02) mg/dL Est GFR ( Amer) >60 (>=60 mL/min/1.73m^2) Est GFR (Non-Af Amer) >60 (>=60 mL/min/1.73m^2) BUN/Creatinine Ratio 17.7 Glucose 85 (74-106) mg/dL Calcium 9.4 (8.5-10.1) mg/dL Serum HCG, Qual Negative (NEGATIVE) Urine Color Lt. yellow (YELLOW) Urine Clarity Clear (CLEAR) Urine pH 6.0 (5.0-9.0) Ur Specific [place] 1.010 (1.005-1.025) Urine Protein Negative (NEG/TRACE) mg/dL Urine Glucose (UA) Negative (NEGATIVE) mg/dL Urine Ketones Negative (NEGATIVE) mg/dL Urine Occult Blood Trace-i (NEGATIVE) Urine Nitrite Negative (NEGATIVE) Urine Bilirubin Negative (NEGATIVE) Urine Urobilinogen 0.2 (0.2-1.0) EU/dL Ur Leukocyte Esterase Negative (NEGATIVE) Urine RBC 0-2 (0-2) #/HPF Urine WBC 0-2 A (NONE SEEN) #/HPF Ur Squamous Epith Cells Moderate A (NONE/RARE) #/LPF Urine Crystals None seen (None Seen) #/HPF Urine Bacteria Trace A (NONE SEEN) #/HPF Urine Casts None seen (NONE SEEN) #/LPF Urine Mucus None seen (NONE SEEN) Ur Culture Indicated? No Salicylates <2.8 (<=19.9) mg/dL Urine Opiates Screen Negative (NEGATIVE) Ur Buprenorphine Scrn Negative (NEGATIVE) Ur Oxycodone Screen Negative (NEGATIVE) Urine Methadone Screen Negative (NEGATIVE) Acetaminophen <2.0 L (10.0-30.0) ug/mL Ur Barbiturates Screen Negative (NEGATIVE) U Tricyclic Antidepress Negative (NEGATIVE) Ur Phencyclidine Scrn Negative (NEGATIVE) Ur Amphetamines Screen Negative (NEGATIVE) U Methamphetamines Scrn Negative (NEGATIVE) U Benzodiazepines Scrn Negative (NEGATIVE) Urine Cocaine Screen Negative (NEGATIVE) U Cannabinoids Screen Negative (NEGATIVE) Ethanol Quant <3 mg/dL ECG Data Attestation: I personally reviewed and interpreted this ECG as follows: (EKG on my interpretation shows sinus rhythm with rate of 70 and no acute change) Discharge Plan Discharge Chief Complaint: Psychiatric Symptoms Clinical Impression: Anxiety about health Patient Disposition: Home, Self-Care Time of Disposition Decision: 22:00 Condition: Good Mode of Transportation: Private Vehicle Prescriptions / Home Meds: No Action hydroxyzine 25 mg capsule PO DAILY levothyroxine 25 mcg tablet 25 mcg PO DAILY lamotrigine 25 mg tablet 25 mg PO DAILY Rx Instructions: 25 mg orally 1 in am albuterol sulfate 90 mcg/actuation HFA aerosol inhaler 2 puff INHALATION Q4H PRN (Reason: shortness of breath or wheezing) aripiprazole 2 mg tablet 2 mg PO HS Print Language: Portuguese Instructions: Anxiety (ED) Additional Instructions: Martin line number is [phone] Referrals: ANTIONETTE BENITEZ DO [Primary Care Provider] - 1 week
--- NOTE | 2025-03-08 21:20 | ECG_ITS ---
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 Measurements Intervals [place] Rate: 70 P: 108 MA: 130 QRS: 80 QRSD: 84 T: 110 QT: 392 QTc: 412 Interpretive Statements 1100 Sinus rhythm [address] DEPRESSION 9150 abnormal ECG Compared to ECG 02/09/2025 15:36:35 ST (T wave) deviation now present Right-axis deviation no longer present Electronically Signed On 03-08-2025 23:06:00 EST by RADHA FREEMAN M.D.
[2025-03-08 21:29] LABS: Hematocrit 40.4 % (36.0-48.0); Hemoglobin 14.1 g/dL (12.0-16.0); Immature Granulocytes Abs Auto 0.02 10^3/uL (0.00-0.03); Immature Granulocytes Pct Auto 0.3 % (0.0-0.5); Lymphocytes Absolute Auto 2.2 10^3/uL (1.2-3.8); Mean Corpuscular HGB Conc 34.9 g/dL (29.9-35.2); Mean Corpuscular Hemoglobin 29.8 pg (26.7-34.0); Mean Corpuscular Volume 85.4 fL (81.0-99.0); Platelet Count 331 10^3/uL (150-450); Red Blood Count 4.73 10^6/uL (4.20-5.40); White Blood Count 7.8 10^3/uL (4.0-11.0)
[2025-03-08 21:30] LABS: Glucose Urine UA NEGATIVE (NEGATIVE)
[2025-03-08 21:38] LABS: Cast Seen? NONE SEEN #/LPF (NONE SEEN); Crystals Seen? None Seen #/HPF (None Seen); Urine Culture Indicated NO
[2025-03-08 21:41] LABS: Anion Gap 14.3; Blood Urea Nitrogen 14.0 mg/dL (7.0-18.0); Calcium 9.4 mg/dL (8.5-10.1); Carbon Dioxide 26.7 mmol/L (21.0-32.0); Chloride 103 mmol/L (98-107); Estimated GFR (African America >60 (>=60 mL/min/1.73m^2); Estimated GFR (Non-African Ame >60 (>=60 mL/min/1.73m^2); Glucose 85 mg/dL (74-106); Potassium 4.0 mmol/L (3.5-5.1); Salicylate <2.8 mg/dL (<=19.9); Sodium 140 mmol/L (136-145)
[2025-03-08 21:42] LABS: Cannabinoid Screen Urine NEGATIVE (NEGATIVE); Methamphetamines Screen Urine NEGATIVE (NEGATIVE); Tricyclic Antidepressant Urine NEGATIVE (NEGATIVE)
[2025-03-08 21:42] LABS: Acetaminophen <2.0 ug/mL (10.0-30.0)
--- OUTSIDE RECORDS SUMMARY | 2025-03-08 21:50 | XMS_ITS | Patient Health Record ---
Author Organization [facility] [place] Address [address] [place] [address] Care Team Providers Care Psychiatry Physician Name Role Phone None, Unknown or Primary Care Provider UnavailJenna Gomes [phone] Allergies No Known Allergies Reason For Referral No Information Medications Medication SIG (Take, Route, Frequency, Duration) Notes Start Date End Date Status Terconazole 0.8 % 1 applicatorful at b edtime Vaginal Once a day; Duration: 3 day(s) 4ActivehydrOXYzine HClActiveAbilifyActive Immunizations Vaccine Route Administration Date Status Comme nts HPV VACCINE 9 VALENT Unknown 02/13/2017 Administered HPV VACCINE 9 MJVJTAMrlbgzf42/23/2018Administered Social History Tobacco Use: Social History Observation Description Date Details (start date - stop date) Current Smoker NA - NA Tobacco Control (Standard) Question Answer Notes Tobacco use: Current smoker Problems Problem Type SNOMED Code ICD Code Onset Dates Problem Status W/U Status Risk Notes Problem 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) Secondar y amenorrhea (N91.1) Activeconfirmed Encounters Encounter Location Date Provider Diagnosis Gynecology Main [place] [address] [place] [address] 02/06/2025 Jenna Castro [facility] [id number] [place] [address] 02/18/2025deana Castro Plan Of Treatment No Information Insurance Providers Payer Name Payer Address Payer Phone Subscriber Number Group Number Insured Name Patient Relationship to Insured Coverage Start Date Coverage End Date [employer] [address] [place] [id number] [facility]ured does not have Financial Responsibility (includes legally adopted child) Medical (General) History Medical History History ICD Code CAT
--- OUTSIDE RECORDS SUMMARY | 2025-03-08 21:51 | XMS_ITS | Clinical Summary ---
Author Organization [facility] Address [address] [place] [address] Care Team Providers Care Tape Librarian Name Role Phone Liam Douglas MD Primary Care Provider Tania Youngblood Unavailable Allergies Active AllergyReactionsCriticalityNoted DateCommentsCiprofloxacinPalpitationsLow [...] InformationValueDate RecordedSex Assigned at BirthNot on fileLegal ZepBzozno88/30/2024 1:49 PM ESTGender IdentityNot on fileSexual OrientationNot on file Last Filed Vital Signs Vital SignReadingTime TakenCommentsBlood Fckexxja916/8204 9:21 AM EDT Bygww0687 9:21 AM EDTTemperature--Respiratory Tsjy1750 9:21 AM EDTOxygen Cgrxslhnqs39%08/12/2024 9:21 AM EDTInhaled Oxygen Concentration-- Rgswml20.4 kg (153 lb)08/12/2024 9:21 AM HPUAeqdtc691.3 cm (5' 9 )08/12/2024 9:21 AM EDTBody Mass Index22.59008/12/2024 9:21 AM EDT Plan of Treatment Not on file Insurance Care Teams Team MemberRelationshipSpecial[place] [address] [place] [address] PCP - GeneralFamily Suhouvuv43/30/24 [place] [address] [place] [address] Physician AssistantNeurology08/12/24
--- OUTSIDE RECORDS SUMMARY | 2025-03-08 21:51 | XMS_ITS | Encounter Summary ---
Author Organization [facility] Address [address] [place], [place] [address] Care Team Providers Care Factory Manager Name Role Phone Liam Douglas DO Primary Care Provider [phone]- [phone] Source Comments In the event this information is protected by the Federal Confidentiality of Alcohol and Drug AbusePatient Records regulations: The Federal rules restrict any use of the information to criminally investigate or prosecute any alcohol or drug abuse patient.[facility] Reason for Visit * ReasonCommentsRefill Request Encounter Details DateTypeDepartmentCare Team (Latest Contact Info)Xtlhnvmcuek19/11/2025Refill [place] [address] Liam Douglas DO [address] [place] [address] Refill Request Social History Tobacco UseTypesPacks/DayYears UsedDateSmoking Tobacco: FormerCigarettes Smokeless Tobacco: NeverAlcohol UseStandard Drinks/WeekCommentsYes0 (1 standard drink = 0.6 oz pure alcohol)[facility] UtilitiesAnswerDate RecordedIn the past 12 months has the [facility], gas, oil, or water [employer] threatened to shut off services in your home?No05/05/2024Social Connection and Isolation PanelAnswer Date RecordedIn a typical week, how many times do you talk on the phone with family, friends, or neighbors?Patient pxwetfts70/12/2025How often do you get together with friends or relatives?Twice a week05/05/2024How often do you attend scientologist or nondenominational services?Patient /12/2025Do you belong to any clubs or organizations such as scientologist groups, unions, fraternal or athletic el ups, or school groups?No05/05/2024How often do you attend meetings of the clubs or organizations you belong to?Patient apppnesm26/12/2025re you , , , , never , or living with a partner?Never ifolhkt0905/05/2024UDIT-CAnswerDate RecordedQ1: How often do you have a drink containing alcohol?Patient /12/2025Q2: How many drinks containing alcohol do you have on a typical day when you are drinking?Patient does not drink05/05/2024Q3: How often do you have six or more drinks on one occasion? Never05/05/2024Overall Financial Resource Strain (CARDIA)AnswerDate RecordedHow hard is it for you to pay for the very basics like food, housing, medical care, and heating?Patient wouvinoj92/12/2025PHQ-2AnswerDate RecordedPHQ-2 score2 06/11/2024[facility] [place] of Occup[facility] Health - Occupational Stress QuestionnaireAnswerDate [...] before you got the money to buymore.Patient ivljxdlz80/12/2025Within the past 12 months, the food you bought just didn't last and you didn't have money to get more. Patient onqagylq43/12/2025PRAPARE - TransportationAnswerDate RecordedIn the past 12 months, [...] pay the mortgage or rent on time?Patient /12/2025Number of Times Moved in the Last YearNot on file05/05/2024Homeless in the Last YearNot on file05/05/2024rea Deprivation IndexAnswerDate RecordedNational Score (1-100), lower number is lower risk76 06/18/2024State Score (1-10), lower number is lower nbip48606/18/2024Data from: https://www.neighborhoodatlas.[facility].edu/. Last address used for [address]06/18/2024CommentsNoSex and Gender InformationValueDate RecordedSex Assigned at BirthNot on fileLegal SexFemale 03/27/2024 1:47 PM ESTGender IdentityNot on fileSexual OrientationNot on file documented as of this encounter Miscellaneous Notes * Telephone Encounter - Tiffanie Arnold MA - 03/04/2025 1:00 PM EST Pharmacy request denied. Patient needs to contact office for refills. Tiffanie Arnold MA documented in this encounter Plan of Treatment DateTypeDepartmentCare Team (Latest Contact Info)Kwtotehhgkl77/11/2025 8:20 AM [facility] [address] [place] [address] [place] [address] [place] [address] [phone] panic attacks or whether it???s a medical concerndocumented as of this encounter Visit Diagnoses Diagnosis Cervicogenic headache Headache documented in this encounter Care Teams Team MemberRelationshipSpecialtyStart DateEnd Date Liam Douglas DO [address] [place] [address] PCP - GeneralFamily Flemsffz73/13/24documented as of this encounter
--- OUTSIDE RECORDS SUMMARY | 2025-03-08 21:51 | XMS_ITS | Clinical Summary ---
Author Organization [facility] Address [address] [place] [address] Phone Care Team Providers Care Painter And Decorator Name Role Phone Unavailable Primary Care Provider Unavailabl e Allergies Active AllergyReactionsCriticalityNoted DateCommentsCiprofloxacinOther, ZkbclgkapexcZib64/13/2024 Heart palp, hard time breathing, shaking Other Reaction(s): Other: See Comments Heart palp, hard time breathing, shaking Medications MedicationSigDispense QuantityRefillsLast FilledStart DateEnd DateStatus ARIPiprazole (Abilify) 2 mg tablet Take 2 mg by mouth once daily at bedtime.Active FLUoxetine (PROzac) 10 mg capsule Take 10 mg by mouth once daily.4Active hydrOXYzine HCL (Atarax) 25 mg tablet TAKE 1 TWICE A DAY NEEDEDActive levothyroxine (Synthroid, Levoxyl) 25 mcg tablet Take 25 mcg by mouth once daily.Active midodrine (Proamatine) 5 mg tablet Take 5 mg by mouth 3 times a day.Active naproxen (Naprosyn) 500 mg tablet TAKE 1 TABLET BY MOUTH ONCE DAILY NEEDED (HEADACHE).Active lamoTRIgine (LaMICtal) 25 mg tablet Take by mouth.5Active benzonatate (Tessalon) 200 mg capsule Indications:Viral URITake 1 capsule (200 mg) by mouth 3 times a day as needed for cough. Do not crush or chew. 42 capsule 5Active Active Problems No known active problems Encounters DateTypeDepartmentCare NdhgFecstgmsnvv35/15/2025 5:55 PM ESTOffice Visit [facility] [place] [address] [facility] [address] [place] [address] Disha Curiel PA-C Viral URI (Primary Dx); Suspected COVID-19 virus kujtvpuzw16/04/2025 3:20 PM EDTOffice Visit Urgent Care [place] [address] [address] Angelita Saunders APRN-HEALTH EDUCATION COORDINATOR Vaginal burning (Primary Dx)12/07/2024Results Follow-Up [facility] [place] [address] [address] Disha Curiel PA-C Urine Culturefrom Last 3 Months Social History Tobacco UseTypesPacks/DayYears UsedDateSmoking Tobacco: Every DayCigarettes Smokeless Tobacco: Never Tobacco Cessation:Ready to Q uit: Not Asked; Counseling Given: Not Answered CommentsNoSex and Gender InformationValueDate RecordedSex Assigned at BirthNot on fileLegal DpcXzlkmc98/26/2022 9:45 AM ESTGender IdentityNot on file Sexual OrientationNot on file Last Filed Vital Signs Vital SignReadingTime TakenCommentsBlood Nlcdvzfk304/8111 5:59 PM EST Lxdne9655 5:59 PM YZLSzxigeakcuk58 ??C (98.6 ??F)03/08/2025 5:59 PM EST Respiratory Bayz065805/08/2024 5:59 PM ESTOxygen Awxqqtspih50%03/08/2025 5:59 PM ESTInhaled Oxygen Concentration--Weight--Height--Body Mass Index-- Plan of Treatment Health MaintenanceDue DateLast DoneCommentsHIV Vvdqcohhg55/28/2004Hearing Screening (#1)2007Pneumococcal Vaccine: Pediatrics and At-Risk Adult Patients (1 of 1 - PPSV23, PCV20, or PCV21), 07/16/2004, 03/15/2004, Additional history existsHepatitis C Irortncjt27/28/2022HPV/Cotest 10/19/2024Influenza Vaccine (#1)/05/2020, 02/10/2020, 02/13/2018, Additional history existsCOVID-19 Vaccine ( season)5Yearly Adult Riwpkvjd62/06/2024, 11/30/2023, 02/23/2021, Additional history existsTSH Level610/ervical Cancer Ndsadnxbu15/03/2028Pap Smear /06/2024Lipid Panel, 2DTaP/Tdap/Td Vaccines (8 - Td or Tdap)/11/2023, 12/02/2013, 10/22/2007, Additional history existsZoster Vaccines (1 of 2), 10/21/2004Hepatitis B KbjgdngoUdvfludxk11/05/2005, 04/28/2004, 03/15/2004, Additional history existsHIB WpuiaflkFjajkwxlq36/28/2005, 04/28/2004, 03/15/2004, Additional history existsIPV EftoxsgbCtdmengsr90/30/2008, 04/28/2004, 04/28/2004, Additional history existsMMR VaccinesCompleted 10/22/2007, 01/19/2005Hepatitis A FfwwoxrrPgipncnwn32/02/2013, 01/17/2012HPV TdlqnldbZgvepcmwd99/23/2018, 02/13/2017Meningococcal QpcpnilWbjxyvqwh74/19/2020, 03/23/2015Meningococcal B AfrxpmmSfskrfugf01/23/2020, 02/10/2020Chlamydia ScreeningDiscontinuedRotavirus VaccinesAged OutNo longer eligible based on patient's age to complete this topic Procedures Procedure NamePriorityDate/TimeAssociated DiagnosisCommentsSPOTFIRE R/ST PANEL MINI W/SBPWGNzkwigg01/15/2025 6:21 PM EST Suspected COVID-19 virus infection LIPID YSBZBOgdyzpf96/27/2022 7:35 AM EDT from Last 3 Months or Most Recently Relevant to Health Maintenance Results * POCT SPOTFIRE R/ST Panel Mini w/COVID ([facility]) manually resulted (03/08/2025 6:21 PM EST)ComponentValueRef RangeTest MethodAnalysis Time Performed AtPathologist SignaturePOC Sars-Cov-2 PCRNegativeNegativePOC Respiratory Syncytial Virus PCRNegativeNegativePOC Influenza A Virus PCR NegativeNegativePOC Influenza B Virus PCRNegativeNegativePOC Human Rhinovirus PCRNegativeNegativeSpecimen (Source)Anatomical Location / LateralityCollection Method / VolumeCollection TimeReceived BvjsTtzx33/15/2025 6:21 PM EST Narrative Authorizing ProviderResult TypeResult StatusArcarolina KERNOINT OF CARE TEST ENTER/EDIT ORDERABLESFinal Result * Lipid Panel (12/18/2021 7:35 AM EDT)ComponentValueRef RangeTest MethodAnalysis TimePerformed AtPathologist CbnyumsiwKibxjiwgrgp8034 - 199 mg/dLL[facility]N [facility] LABComment: . ?AGE ?DESIRABLE ?? BORDERLINE [...] be performed immediately prior to Metamizole dosing. HDL50.4mg/dLLINCOLN HOSPITAL LABComment: . ?AGE ?VERY LOW ?? LOW ? NORMAL ?HIGH ?? 0-19 Y < 35 < 40 40-45 ---- 20-24 Y ---- < 40 >45 ---- >24 Y ---- < 40 40-60 >60 . Cholesterol/HDL Ratio2.3GST[facility] LABComment: REF VALUES DESIRABLE < 3.4 HIGH RISK > 5.0 VRW665 - 109 mg/dLLINCOLN HOSPITAL LABComment: . ? NEAR ?BORD ?AGE ?DESIRABLE ??OPTIMAL ?HIGH ? HIGH ? VERY HIGH 0-19 Y 0 - 109 --- 110-129 >/= 130 ---- 20-24 Y 0 - 119 --- 120-159 >/= 160 ---- >24 Y 0 - 99 100-129 130-159 160-189 >/=190 . VLDL60 - 40 mg/dLLINCOLN [facility] TNCZnypvaebdounl716 - 149 mg/dLLINCOLN [facility] LABComment: . ?AGE ?DESIRABLE ?? BORDERLINE [...] immediately prior to Metamizole dosing. Non HDL Sdocswiemlf234 - 119 mg/dLLINCOLN [facility]OS[facility]ITAL LABComment: ?AGE ?DESIRABLE ?? BORDERLINE HIGH [...] EDT Narrative Authorizing ProviderResult TypeResult StatusEdna Worley MDSURGERY CENTER OF [facility] BLOOD ORDERABLESFinal ResultPerforming OrganizationAddressCity/State/ZIP CodePhone Number [facility] [address] [place], [place] [phone] from Last 3 Months or Most Recently Relevant to Health Maintenance Insurance
--- OUTSIDE RECORDS SUMMARY | 2025-03-08 21:51 | XMS_ITS | Clinical Summary ---
Author Organization [facility] Address [address] [place] [address] Care Team Providers Care Project Facilitator Name Role Phone Liam Douglas DO Primary Care Provider +1- [phone] Allergies Active AllergyReactionsCriticalityNoted DateCommentsCiprofloxacinOther: See Lplvtuek30/13/2024 Heart palp, hard time breathing, shaking Medications [...] as directed.Active Active Problems ProblemNoted DateDiagnosed DateBipolar xurwcycn32/17/2025Vasovagal syncope 05/07/2024Sinus akkxtwxlgvk37/14/2025Subclinical noqisedogzjjqa50/14/2025 Cervicogenic ckaeuuwy91/14/2025orderline personality /13/2024nxiety 02/26/2016 Encounters DateTypeDepartmentCare OzzsUvjpvnzvsew23/11/2025Refill Family Medicine [facility] [address] [place] [address] Liam Douglas DO Refill Wlelqfr1302/09/2025Nurse Triage NURSE STEAM SHOVEL OPERATING ENGINEER [address] [place] [address] [address]uc[address] Morales, ISAI Fydxxyhehceo04/19/2025 Patient [facility] [address] [place] [address] Liam Douglas, Appointment Dzybgvm9701/08/2025 11:00 AM EDTOffice Visit [facility] [address] [place] [address] Liam Douglas, Bipolar affective disorder, remission status unspecified (HCC) (Primary Dx); Borderline personality disorder (HCC); Chlamydia; Bacterial vaginosis; Fatigue, unspecified type01/08/20255870Zowgqu16/08/2025 Patient [facility] [address] [place] [address] Liam Douglas DO Appointment Kceljyg8012/22/2024 Patient [facility] [address] [place] [address] Liam Douglas DO Appointment Fndnczh1712/20/2024Telephone [facility] [address] [place] [phone] Liam Douglas, from Last 3 Months Immunizations ImmunizationAdministration DatesNext DueHaemophilus influenzae b (Hib) vaccine, unspecified xxecwpkquxp29/28/2005,04/28/2004,03/15/2004,01/06/2004diphtheria tetanus pertussis (DTaP) vaccine, pediatric (INFANRIX)10/22/2007,04/20/2005, 04/28/2004,03/15/2004,01/06/2004hepatitis A (HepA) vaccine, adult (HAVRIX, VAQTA)10/23/2012,01/17/2012hepatitis B (HepB) vaccine, 3-dose series, age 0 yr - 19 yr (ENGERIX B-PEDS, RECOMBIVAX HB-PEDS)04/28/2004,03/15/2004,01/06/2004, 2003human papillomavirus (HPV9) vaccine, 9 valent (GARDASIL 9)02/13/2018, 02/13/2017influenza (IIV4) vaccine, age 6 mo - 64 yr, quadrivalent, PF (AFLURIA, FLUARIX, FLULAVAL, FLUZONE)02/23/2021,02/13/2018,02/13/2017influenza (LAIV4) vaccine, quadrivalent, live, intranasal (FLUMIST)02/10/2020influenza vaccine, unspecified dpabyljeulw19/18/2016,03/23/2015,02/04/2006measles mumps rubella (MMR) vaccine (M-M-R II, PRIORIX)10/22/2007,01/19/2005meningococcal [...] (1 standard drink = 0.6 oz pure alcohol)[facility] UtilitiesAnswerDate RecordedIn the past 12 months has the electric, gas, oil, or water company threatened to shut off services in your home?No05/05/2024Social Connection and Isolation PanelAnswerDate RecordedIn a typical week, how many times do you talk on the phone with family, friends, or neighbors?Patient qbkkmgta64/12/2025How often do you get together with friends or relatives?Twice a week05/05/2024How often do you attend congregational or congregation services?Patient gkhzypyw83/12/2025Do you belong to any clubs or organizations such as congregational groups, unions, fraternal or athletic groups, or school groups?No 05/05/2024How often do you attend meetings of the clubs or organizations you belong to?Patient wwgycqqe60/12/2025re you , , , , never , or living with a partner?Never jlwcedn6705/05/2024 AUDIT-CAnswerDate RecordedQ1: How often do you have a drink containing alcohol? Patient legtaran77/12/2025Q2: How many drinks containing alcohol do you have on a typical day when you are drinking?Patient does not drink05/05/2024Q3: How often do you have six or more drinks on one occasion?Never05/05/2024Overall Financial Resource Strain (CARDIA)AnswerDate RecordedHow hard is it for you to pay for the very basics like food, housing, medical care, and heating?Patient zzlhvhyn51/12/2025PHQ-2AnswerDate RecordedPHQ-2 mothh096Fincastleview hospital [place] of Occupational Health - Occupational Stress QuestionnaireAnswerDate [...] before you got the money to buymore.Patient hrnbluvz02/12/2025Within the past 12 months, the food you bought just didn't last and you didn't have money to get more.Patient rgfvbowz65/12/2025PRAPARE - TransportationAnswerDate RecordedIn the past 12 months, [...] pay the mortgage or rent on time?Patient kbywbkbv35/12/2025Number of Times Moved in the Last YearNot on file05/05/2024 Homeless in the Last YearNot on file05/05/2024rea Deprivation IndexAnswerDate RecordedNational Score (1-100), lower number is lower ieqr397106/18/2024State Score (1-10), lower number is lower vzax28306/18/2024Data from: https://www.neighborhoodatlas.medicine.[facility].edu/. Last address used for [address]06/18/2024CommentsNoSex and Gender InformationValueDate RecordedSex Assigned at BirthNot on fileLegal SexFemale 03/27/2024 1:47 PM ESTGender IdentityNot on fileSexual OrientationNot on file Last Filed Vital Signs Vital SignReadingTime TakenCommentsBlood Fssixznz080/7909 10:51 AM EDT Zhrjk609301/08/2025 10:51 AM GPFEmekiytfgjh35.7 ??C (98.1 ??F)01/08/2025 10:51 AM EDTRespiratory Rate--Oxygen Wreplkodav90%01/08/2025 10:51 AM EDTInhaled Oxygen Concentration--Ggxooa06.9 kg (160 lb 11.5 oz)01/08/2025 10:51 AM NWUYuuvnq974.3 cm (5' 9.02 )08/29/2024 11:26 AM EDTBody Mass Index23.7205 11:26 AM EDT Plan of Treatment DateTypeDepartmentCare Team (Latest Contact Info)Yzjdxxlardd24/11/2025 8:20 AM [facility] [address] [place] [address] Liam Douglas DO [address] [place] [phone] panic attacks or whether it???s a medical concernHealth MaintenanceDue DateLast DoneCommentsPeds To Adult Transition Initial Tbvzbgccqu55/28/2016Peds To Adult Transition Annual Bgilyxmhtr73/28/2018Depression Xbfbepsmj88/28/2022HIV Voscwbiho76/28/2022Hepatitis C Aaroxufzn65/28/2022ovid-19 Vaccine ( season)2024Influenza Vaccine (#1)/05/2020, 02/10/2020, 02/13/2018, Additional history existsAnnual PCP Team Chronic Disease Visit 609/hlamydia Screening (18-)/12/2024, 07/08/2024 GC (Gonorrhea) Screening (18-)/12/2024, 07/08/2024ervical Cancer Ftogmdaiq09/06/2024DTaP,Tdap,Td Vaccine (8 - Td or Tdap)11/29/2033 11/30/2023, 12/02/2013, 10/22/2007, Additional history existsHepatitis B Vaccine Sghgiisvn74/05/2005, 03/15/2004, 01/06/2004, Additional history existsHPV OxigcxlQvdysbbcb55/23/2018, 02/13/2017Meningococcal B VaccineCompleted 03/16/2020, 02/10/2020 Procedures Procedure NamePriorityDate/TimeAssociated DiagnosisCommentsFERRITIN BLDRoutine 01/30/2025 11:39 AM EDT Fatigue, unspecified type IRON + GGUQGhsdwxu76/09/2025 11:39 AM EDT Fatigue, unspecified type VITAMIN B12 MBCZHZgcmxdu01/09/2025 11:39 AM EDT Fatigue, unspecified type TSH OHNTkbaqzo52/09/2025 11:39 AM EDT Fatigue, unspecified type TARA/TRICHOMONAS RLDYCxqwhfv81/09/2025 11:39 AM EDT Chlamydia Bacterial vaginosis GONORRHEA/CHLAMYDIA DERKRgzyzur74/09/2025 11:39 AM EDT Chlamydia Bacterial vaginosis from Last 3 Months Results * TARA/TRICHOMONAS NAAT (01/30/2025 11:39 AM EDT)ComponentValueRef RangeTest MethodAnalysis TimePerformed AtPathologist SignatureCandida species group RNA Not detectedNot detected [facility] 01/30/2025 8:01 PM EDAC[facility]ALTH[facility]ARE [facility] LABComment:The Tara species group target includes C. albicans, C. tropicalis, C. parapsilosis, and C. dubliniensis.Tara glabrata RNANot detectedNot detected [facility] 01/30/2025 8:01 PM EDAC[facility]ARE SYSTEM LABTrichomonas vaginalis RNA Not detectedNot detected [facility] 01/30/2025 8:01 PM [facility] LABSpecimen (Source) Anatomical Location / LateralityCollection Method / VolumeCollection Time Received TimeSwabVAGINAL STRUCTURE / UnknownNon Blood / Fmyiujl6301/30/2025 11:39 AM EDT1 12:06 PM EDT Narrative Authorizing ProviderResult TypeResult StatusTrevor Aurora Douglas DOMICROBIOLOGY Final ResultPerforming OrganizationAddressCity/State/ZIP CodePhone Number [facility] [address] [place] [address], * GONORRHEA/CHLAMYDIA NAAT (01/30/2025 11:39 AM EDT)ComponentValueRef RangeTest MethodAnalysis TimePerformed AtPathologist SignatureNeisseria gonorrhoeae RNA Not detectedNot detected [facility] 01/30/2025 8:41 PM EDACMC [facility]ALTH[facility] LABChlamydia trachomatis RNA Not detectedNot detected [facility] 01/30/2025 8:41 PM EDACMC [facility]ALTH[facility]ARE SYSTEM LABSpecimen (Source) Anatomical Location / LateralityCollection Method / VolumeCollection Time Received TimeSwabVAGINAL STRUCTURE / UnknownNon Blood / Aevfpxo3801/30/2025 11:39 AM EDT1 12:06 PM EDT Narrative [facility] - 01/30/2025 8:41 PM EDT This FDA-approved assay has been modified to accept rectal swabs self-collected in a healthcare setting. For self-collected rectal swabs, the test was developed and its performance characteristics determined by the [facility] [place] ([facility]). It has not been cleared or approved by the FDA. [facility] is regulated under CLIA as qualified to perform high-complexity testing. This test is used for clinical purposes. It should not be regarded as investigational or for research. Authorizing ProviderResult TypeResult StatusTrevor Aurora Douglas DOMICROBIOLOGY Final ResultPerforming OrganizationAddressCity/State/ZIP CodePhone Number [facility] [address] [place] [address], * VITAMIN B12 (01/30/2025 11:39 AM EDT)ComponentValueRef RangeTest Method Analysis TimePerformed AtPathologist SignatureVitamin [id number] - 1,245 pg/mL 01/30/2025 9:35 PM EDACMC [facility]ALTH[facility]ARE SYSTEM LABSpecimen (Source) Anatomical Location / LateralityCollection Method / VolumeCollection Time Received TimeBloodBLOOD SPECIMEN / UnknownVenipuncture / Xbxnzyu6201/30/2025 11:39 AM EDT1 12:06 PM EDT Narrative Authorizing ProviderResult TypeResult StatusTrevor Aurora Douglas DOLABORATORYFinal ResultPerforming OrganizationAddressCity/State/ZIP CodePhone Number [facility] [address] [place] [phone], * THYROID STIMULATING HORMONE (01/30/2025 11:39 AM EDT)ComponentValueRef Range Test MethodAnalysis TimePerformed AtPathologist SignatureTSH3.6000.270 - 4.200 mIU/L1 9:35 PM EDACMC HEALTHCARE SYSTEM LABComment: If the patient is , TSH reference range varies by gestational period: First Trimester (weeks 9-12): 0.180-2.990 mIU/L Second Trimester: 0.110-3.980 mIU/L Third Trimester: 0.480-4.710 mIU/L Malcolm Molina et al. A Practical Approach for the Verifications and Determination of Site- and Trimester-Specific Reference Intervals for Thyroid Function tests in . Thyroid, 2019:29:3:412-420.Rubio Jade et al. 2017 Guidelines of the [place] [employer] Association for the Diagnosis and Management of Thyroid Disease during and the . Thyroid, 2017:27:3:315-389. Specimen (Source)Anatomical Location / LateralityCollection Method / Volume Collection TimeReceived TimeBloodBLOOD SPECIMEN / UnknownVenipuncture / Unknown 01/30/2025 11:39 AM EDT1 12:06 PM EDT Narrative Authorizing ProviderResult TypeResult StatusTrevor Aurora Douglas DOLABORATORYFinal ResultPerforming OrganizationAddressCity/State/ZIP CodePhone Number [facility] [address] [place] [address], * (ABNORMAL) IRON AND TIBC (01/30/2025 11:39 AM EDT)ComponentValueRef RangeTest MethodAnalysis TimePerformed AtPathologist LuvntskajHqoh5377 - 186 ug/dL 01/30/2025 9:[address] [facility] EWJTAVN821(H)232 - 386 ug/dL01/30/2025 9:15 PM EDACMC [facility]ALTH[facility]ARE SYSTEM LABTransferrin Lggccehfeh85.015.0 - 57.0 %01/30/2025 9:15 PM [facility] LABSpecimen (Source)Anatomical Location / LateralityCollection Method / Volume Collection TimeReceived TimeBloodBLOOD SPECIMEN / UnknownVenipuncture / Lphxcfe7101/30/2025 11:39 AM EDT1 12:06 PM EDT Narrative Authorizing ProviderResult TypeResult StatusTrevor Aurora Douglas DOLABORATORYFinal ResultPerforming OrganizationAddressCity/State/ZIP CodePhone Number [facility] [address] [place] [phone], * FERRITIN (01/30/2025 11:39 AM EDT)ComponentValueRef RangeTest MethodAnalysis TimePerformed AtPathologist TrqrtsnvgHzofkfpn66.914.7 - 205.1 ng/mL01/30/2025 9:[address] [facility] LABSpecimen (Source)Anatomical Location / LateralityCollection Method / VolumeCollection TimeReceived Time BloodBLOOD SPECIMEN / UnknownVenipuncture / Nclxoxx4101/30/2025 11:39 AM EDT 01/30/2025 12:06 PM EDT Narrative Authorizing ProviderResult TypeResult StatusTrevohenrique Douglas DOLABORATORYFinal ResultPerforming OrganizationAddressCity/State/ZIP CodePhone Number [facility] [address] [place] [phone], from Last 3 Months Insurance Care Teams Team MemberRelationshipSpecialtyStart DateEnd Date Liam Douglas DO [address] [place] [id number] [facility] Lrmwbgvv53/13/24
--- OUTSIDE RECORDS SUMMARY | 2025-03-08 21:51 | XMS_ITS | Clinical Summary ---
Author Organization [employer] tem Address [id number] [address] 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 Role Phone Ref Prov, Not In [...] 21 tablet 1205Active Active Problems ProblemNoted DateDiagnosed UaoiGdvorgk84/26/2025Trichotillomania in pediatric pxegmfw0402/13/20172014Kyejcba15/04/2016 Encounters DateTypeDepartmentCare NabzVjgsxgsejyj27/13/2025 7:41 PM EST - 03/06/2025 7:44 PM SALLYmerchrissy [facility] [address] [place] [address] Zachary Steele MD Discharge Disposition: Left Without Treatmentfrom Last 3 Months Immunizations ImmunizationAdministration DatesNext OdjXGpJ6910/22/2007,04/20/2005,04/28/2004, 03/15/2004,01/06/2004HPV91,02/13/2017Hep B, Adolescent or Pediatric 04/28/2004,03/15/2004,01/06/2004,2003Hepatitis A010/23/2012,01/17/2012HiB 01/19/2005,04/28/2004,03/15/2004,01/06/2004IPV10/22/2007,04/28/2004,03/15/2004, 01/06/2004Influenza LAIV (Nasal)02/10/2020Influenza, Injectable, quadrivalent (PF)02/23/2021,02/13/2018,02/13/2017Influenza, Rzqmbtsoimk86/18/2016,03/23/2015, 02/04/2006MMR10/22/2007,01/19/2005Meningococcal B, Omv105/16/2019,02/10/2020 Meningococcal Zjzvpvogs39/19/2020,03/23/2015Pneumococcal Conjugate 13-Valent 10/21/2004,07/16/2004,03/15/2004,01/06/2004Tdap11/30/2023,12/02/2013Varicella 10/22/2007,10/21/2004 Family History Medical HistoryRelationNameCommentsDepressionBrotherHyperthyroidismBrother Learning disabilitiesBrotherMental illnessBrotherHypertensionFatherMental illnessFatherAtrial fibrillationMaternal GrandmotherHypothyroidismMotherMental illnessMotherRelationNameStatusCommentsBrotherAliveFatherAliveMaternal GrandmotherAliveMotherAlive Social History Tobacco UseTypesPacks/DayYears UsedDateSmoking Tobacco: FormerCigarettes0.51.1 Started: 01/2024Smokeless Tobacco: NeverAlcohol UseStandard Drinks/WeekComments Yes0 (1 standard drink = 0.6 oz pure alcohol)sociallyPHQ-2AnswerDate Recorded Total Tdxyu1136/23/2018ChildcareAnswerDate QglsqaphLjmiyctmnPijphoz48/10/2019 EmploymentAnswerDate GcriglryZaifgszqqtVrsyykr50/10/2019Hunger ScreeningAnswer Date RecordedWithin the past 12 months we worried whether our food would run out before we got money to buy more.Never True06/19/2024Within the past 12 months the food we bought just didn't last and we didn't have money to get more.Never True06/19/2024Purpose - LifeAnswerDate RecordedPurpose and direction in life Serpkew08/10/2021CommentsNoSex and Gender InformationValueDate Recorded Sex Assigned at BirthNot on fileLegal AicYgemgg44/04/2015 3:17 PM EDTGender IdentityNot on fileSexual OrientationNot on file Last Filed Vital Signs Vital SignReadingTime TakenCommentsBlood Dznsgwit730/9511 7:25 PM EST Tqefh891403/06/2025 7:25 PM ETXSzibntvvtvd50 ??C (98.6 ??F)03/06/2025 7:25 PM EST Respiratory Lwgo498305/06/2024 7:25 PM ESTOxygen Qxobissldt94%03/06/2025 7:25 PM ESTInhaled Oxygen Concentration--Jrpjuz80.8 kg (165 lb)03/06/2025 7:25 PM EST Cqqtry813.3 cm (5' 9 )03/06/2025 7:25 PM ESTBody Mass Index24.37105/06/2024 7:25 PM EST Plan of Treatment Health MaintenanceDue DateLast DoneCommentsDepression Ycpgsnsbc53/08/2025 4COVID-19 Vaccine ( season)501/, 09/02/2020, 08/12/2020Influenza Hocbznb23/05/2020, 02/10/2020, 02/13/2018, Additional history existsTobacco Hsmaegfal35/03/970002/hlamydia Fkziumvpw23/12/2024, 12/19/2024, 10/24/2024, Additional history exists Adult BMI Awesszyvm29/Pap Smear7/06/2024, 02/07/2024 DTaP,Tdap and Td Vaccines (8 - Td or Tdap)/11/2023, 12/02/2013, 10/22/2007, Additional history exists Medical Devices Not on file Procedures Procedure NamePriorityDate/TimeAssociated DiagnosisCommentsTHIN PREP PAP TEST Hwpvbzg8610/24/2024 2:51 PM EDT Well woman exam with routine gynecological exam CHLAMYDIA/GC BY PCR JOAO OHRPYganshj78/03/2025 2:51 PM EDT Unprotected sexual intercourse from Last 3 Months or Most Recently Relevant to Health Maintenance Results * Thin Prep Pap Test (10/24/2024 2:51 PM EDT)ComponentValueRef RangeTest Method Analysis TimePerformed AtPathologist SignatureCase ReportGynecologic Cytology Report ? Case: [id number] ? Authorizing Provider: ??Yenny Lozano MD ?Collected: ? 10/24/2024 1451 ? Ordering Location: ? [facility] ? Received: ?10/24/2024 1452 ? Obstetrics/Gynecology ? First Screen: ?Aissatou Howell, CT(ASCP) ? Rescreen: ?Thang Willson, ? CT(ASCP) ? Specimen: ?Thin Prep Pap, Cervix/Endocervix ? 10/28/2024 3:31 PM [facility]ATORYSpecimen Adequacy Satisfactory for evaluation, endocervical/transformation zone component absent 10/28/2024 3:31 PM [facility] LABORATORYInterpretationNEGATIVE FOR INTRAEPITHELIAL LESION OR MALIGNANCYNEGATIVE FOR INTRAEPITHELIAL LESION OR MALIGNANCY, UNSATISFACTORY, EPITHELIAL CELL ABNORMALITY, GLANDULAR EPITHELIAL CELL ABNORMALITY. , SQUAMOUS EPITHELIAL CELL ABNORMALITY, NO DIAGNOSIS RENDERED. 10/28/2024 3:31 PM [facility] at 1531 EDTOther FindingsFungal organisms morphologically consistent with Tara species are present.10/28/2024 3:31 PM [facility] LABORATORYAdditional InformationThe Pap test is a screening test with an inherent, but low, probability of error. The Pap test is primarily effective for the diagnosis and prevention of squamous cell carcinoma. Regular screening iscritical for prevention. ThinPrep liquid-based slides, which meet the Manufacturing Lead criteria for automated screening, have been screened by the ThinPrep Imaging System (as of 01/08/07) along with an additional manual rescreening by a plant superintendent and, if indicated, by a pathologist.10/28/2024 3:31 PM [facility] LABORATORYClinical Informationannual with pap10/28/2024 3:31 PM [facility] LABORATORYEmbedded Ijuxgn3710/28/2024 3:31 PM [facility] LABORATORYSpecimen (Source)Anatomical Location / LateralityCollection Method / VolumeCollection TimeReceived TimeThinPrep cytology technique (qualifier value) (Cervix/Endocervix)10/24/2024 2:51 PM EDT10/24/2024 2:52 PM EDT Narrative Authorizing ProviderResult TypeResult StatusTiflety Lozano MDPATHOLOGY/CYTOLOGY ORDERABLESFinal ResultPerforming OrganizationAddressCity/State/ZIP CodePhone Number [facility] [address] [place] [address], * Chlamydia/GC by PCR Joao Swab (10/24/2024 2:51 PM EDT)ComponentValueRef Range Test MethodAnalysis TimePerformed AtPathologist SignatureCHLAMYDIA DNA(PCR) MwolehnbMiuqzkln57/04/2025 10:55 AM [facility] Comment:Chlamydia trachomatis not detected by nucleic acid amplification. This does not exclude the possibility of infection because results are dependent on adequate specimen collection.GONORRHOEAE DNA(PCR)BuocmhdeRremsdjc71/04/2025 10:55 AM [facility] LABORATORYComment:Neisseria gonorrhoeae not detected by nucleic acid amplification. This does not exclude the possibil ity of infection because results are dependent on adequate specimen collection.Specimen (Source)Anatomical Location / LateralityCollection Method / VolumeCollection TimeReceived TimeSwabVaginal structure / Jkgblzn8110/24/2024 2:51 PM EDT10/24/2024 2:52 PM EDT Narrative Authorizing ProviderResult TypeResult StatusTiflety Lozano MDMICROBIOLOGY - GENERAL ORDERABLESFinal ResultPerforming OrganizationAddressCity/State/ZIP Code Phone Number [facility] [address] [place] [address], from Last 3 Months or Most Recently Relevant to Health [place] [address] Care Teams Team MemberRelationshipSpecialtyStart DateEnd Date Ref Prov, [place] [address] PCP - General06/21/24
--- NOTE | 2025-03-08 22:00 | PC.NURSE ---
Aissatou from [facility] calls to inform that patient is ok for discharge from [facility] stand point as patient has out patient services already in place and patient has a place to go tonight. Patient given phone number for [employer].
== END 2025-03-08 22:13 | disposition home or self-care (01) ==
PROVIDERS: Emergency Provider Emergency Medicine; PCP Family Medicine
DX: F41.8 Other specified anxiety disorders (principal)
CPT/HCPCS: 36415; 80048; 80179; 80307; 80320; 80329; 81001; 84703; 85025; 93005; 99285

== ENCOUNTER 2025-03-14 04:00 | Emergency (ER) | payer OTHER, SELFPAY ==
--- OUTSIDE RECORDS SUMMARY | 2024-02-07 05:25 | XMS_ITS ---
Author Organization The [facility] in [place] Address [address] [place] [address] Care Team Providers Care Jewel Bearing Polisher Name Role Phone None, Unknown or Primary Care Provider Unavailab le Provider, Lab Unavailable [phone] REASON FOR VISIT mlw Encounters Encounter Location Date Provider Diagnosis [facility] Lab Bld[address] [place] [address] 02/07/2024 Lab Provider Plan Of Treatment No Information Progress Notes * Triec STALLWORTHDOB: 4 (19 yo F)Acc No.[id number]:02/07/2024 UNLOCKED PROGRESS NOTE Progress Note Patient: Trice FITCH :?Lab ProviderDOB:2005???Age:18 Y???Sex: FemaleDate:02/07/2024hone:[phone]:124 IAN MORENO [id number]:Unknown or NoneCheck In:10:23 AM ESTCheck Out:10:30 AM EST Subjective: * Chief Complaints: * 1 . Mlw. * Medical History: Objective: * Vitals: Assessment: Plan: * Treatment: * * Electronic signature of Lab Provider on 03/14/2025 at 04:48 AM ESTSign off status: PendingVisit Status:?CHK (Check Out) * Provider: Jesse lagunas Provider Date: Generated for Printing/Faxing/eTransmitting on:?03/14/2025 04:48 AM EST
--- OUTSIDE RECORDS SUMMARY | 2025-03-06 19:41 | XMS_ITS | Encounter Summary ---
Author Organization [facility] tem Address [id number] [address] [place] [address] Care Team Providers Care Outpatient Phlebotomist Name Role Phone Ref Prov, Not In System Primary Care Provider Un available Reason for Visit * ReasonCommentsMental Health Problem Encounter Details DateTypeDepartmentCare Team (Latest Contact Info)Mmudlkfndbp64/13/2025 7:41 PM EST - 03/06/2025 7:44 PM [facility] [address] [place] [address] Zachary Steele MD [address] [place], [place] [id number] Discharge Disposition: Left Without Treatment Social History Tobacco UseTypesPacks/DayYears UsedDateSmoking Tobacco: FormerCigarettes0.51.1 Started: 01/2024Smokeless Tobacco: NeverAlcohol UseStandard Drinks/WeekComments Yes0 (1 standard drink = 0.6 oz pure alcohol)sociallyPHQ-2AnswerDate Recorded Total Edyjp5769/23/2018ChildcareAnswerDate EdakimjbEwpepkywhRsnarkc14/10/2019 EmploymentAnswerDate ZnxkbhvlQcsrobqfzhWakhojn63/10/2019Hunger ScreeningAnswer Date RecordedWithin the past 12 months we worried whether our food would run out before we got money to buy more.Never True06/19/2024Within the past 12 months the food we bought just didn't last and we didn't have money to get more.Never True06/19/2024Purpose - LifeAnswerDate RecordedPurpose and direction in life Oxhbugp32/10/2021CommentsNoSex and Gender InformationValueDate Recorded Sex Assigned at BirthNot on fileLegal CvkAcicbc70/04/2015 3:17 PM EDTGender IdentityNot on fileSexual OrientationNot on filedocumented as of this encounter Last Filed Vital Signs Vital SignReadingTime TakenCommentsBlood Xvgrozaf998/9503/06/2025 7:25 PM EST Trrhe342103/06/2025 7:25 PM KURYsghnriwuad01 ??C (98.6 ??F)03/06/2025 7:25 PM EST Respiratory Fgjr009105/06/2024 7:25 PM ESTOxygen Pbeulfhojf17%03/06/2025 7:25 PM ESTInhaled Oxygen Concentration--Lhbxmg43.8 kg (165 lb)03/06/2025 7:25 PM EST Uckcxq461.3 cm (5' 9 )03/06/2025 7:25 PM ESTBody [...] DateEnd Date Ref Prov, [place] [address] PCP - General06/21/24documented as of this encounter
--- OUTSIDE RECORDS SUMMARY | 2025-03-08 17:55 | XMS_ITS | Encounter Summary ---
Author Organization [facility] Address [address] [place] [address] Phone Care Team Providers Care Order Packer Name Role Phone Unavailable Primary Care Provider Unavailabl e Reason for Visit * ReasonCommentsCoughComplaint of cough, wheezing since today. Encounter Details DateTypeDepartmentCare Team (Latest Contact Info)Aalrgjmeqrv67/15/2025 5:55 PM ESTOffice Visit [facility] [place] [address] [facility] [address] [place] [address] Disha Curiel PA-C [address] [facility] [address] [place], [place] [id number] Viral URI (Primary Dx); Suspected COVID-19 virus infection Social History Tobacco UseTypesPacks/DayYears UsedDateSmoking Tobacco: Every DayCigarettes Smokeless Tobacco: NeverCommentsNoSex and Gender InformationValueDate RecordedSex Assigned at BirthNot on fileLegal JuaLkcbfp87/26/2022 9:45 AM EST Gender IdentityNot on fileSexual OrientationNot on filedocumented as of this encounter Last Filed Vital Signs Vital SignReadingTime TakenCommentsBlood Plzffkbe712/8111 5:59 PM EST Ygipl0526 5:59 PM VLYAfxzqvuydgf29 ??C (98.6 ??F)03/08/2025 5:59 PM EST Respiratory Odzx494705/08/2024 5:59 PM ESTOxygen Xcqbmbvxqg98%03/08/2025 5:59 PM ESTInhaled Oxygen Concentration--Weight--Height--Body Mass Index--documented in this encounter Functional Status * BPAnswerDate of WdkcbkqjghZtccki397/8111 5:59 PM Shelli Hurd * PulseAnswerDate of QizdfskemvUgvqln3688 5:59 PM Shelli Hurd documented as of this encounter Patient Instructions * Patient Instructions* Disha Curiel PA-C - 03/08/2025 5:55 PM EST Testing was negative for COVID, influenza, RSV and rhinovirus documented in this encounter Progress Notes * Disha Curiel PA-C - 03/08/2025 5:55 PM EST Subjective Patient ID: Trice Stallworth is a 19 y.o. female. They [...] 03/08/25 POCT SPOTFIRE R/ST Panel Mini w/COVID ([employer]) manually resulted Specimen: Swab Result Value Ref [...] Staffing Case does not need staffing per [facility] case staffing policy Orders and Diagnoses Diagnoses [...] Procedures Procedure NamePriorityDate/TimeAssociated DiagnosisCommentsSPOTFIRE R/ST PANEL MINI W/JKNNEAlhsfth90/15/2025 6:21 PM EST Suspected COVID-19 virus infection documented in this encounter Results * POCT SPOTFIRE R/ST Panel Mini w/COVID ([facility]) manually resulted (03/08/2025 6:21 PM EST)ComponentValueRef RangeTest MethodAnalysis Time Performed AtPathologist SignaturePOC Sars-Cov-2 PCRNegativeNegativePOC Respiratory Syncytial Virus PCRNegativeNegativePOC Influenza A Virus PCR NegativeNegativePOC Influenza B Virus PCRNegativeNegativePOC Human Rhinovirus PCRNegativeNegativeSpecimen (Source)Anatomical Location / LateralityCollection Method / VolumeCollection TimeReceived CpyhJfvo36/15/2025 6:21 PM EST Narrative Authorizing ProviderResult TypeResult StatusArcarolina KERNOINT OF CARE TEST ENTER/EDIT ORDERABLESFinal Result documented in this encounter Visit Diagnoses Diagnosis Viral URI- Primary Acute upper respiratory infections of unspecified site Suspected COVID-19 virus infection documented in this encounter
--- OUTSIDE RECORDS SUMMARY | 2025-03-10 20:24 | XMS_ITS | Encounter Summary ---
Author Organization [facility] tem Address [facility] [id number] [address] [place] [address] Care Team Providers Care Ivory Carver Name Role Phone Ref Prov, Not In System Primary Care Provider Un available Reason for Visit * ReasonCommentsFlu SymptomsPt reports to ER with c/o just not feeling well Pt reports having a cough, fevers at home, burning in her chest, and brain fog Encounter Details DateTypeDepartmentCare Team (Latest Contact Info)Jzqrvcavdlv03/17/2025 8:24 PM EST - 03/10/2025 9:26 PM [facility] [address] [place] [address] Reji Martin, DO [address] [place], [place] [id number] Chest tightness (Primary Dx) Discharge Disposition: Home Social History Tobacco UseTypesPacks/DayYears UsedDateSmoking Tobacco: FormerCigarettes0.51.1 Started: 01/2024Smokeless Tobacco: NeverAlcohol UseStandard Drinks/WeekComments Yes0 (1 standard drink = 0.6 oz pure alcohol)sociallyPHQ-2AnswerDate Recorded Total Dkevm0177/23/2018ChildcareAnswerDate DwatqeimKeyiyseiqGdnuwtm25/10/2019 EmploymentAnswerDate ReowqggvNlkolgdnisRnegcll70/10/2019Hunger ScreeningAnswer Date RecordedWithin the past 12 months we worried whether our food would run out before we got money to buy more.Never True03/10/2025Within the past 12 months the food we bought just didn't last and we didn't have money to get more.Never True03/10/2025Purpose - LifeAnswerDate RecordedPurpose and direction in life Vrumykl72/10/2021CommentsNoSex and Gender InformationValueDate Recorded Sex Assigned at BirthNot on fileLegal LrhOhzwdx43/04/2015 3:17 PM EDTGender IdentityNot on fileSexual OrientationNot on filedocumented as of this encounter Last Filed Vital Signs Vital SignReadingTime TakenCommentsBlood Knpefczv699/7403/10/2025 9:26 PM EST Wrmrj869803/10/2025 9:26 PM VQSCexkvfsktzp47.1 ??C (97 ??F)03/10/2025 6:56 PM EST Respiratory Hbrj499605/10/2024 9:26 PM ESTOxygen Alkqtbqdfj04%03/10/2025 9:26 PM ESTInhaled Oxygen Concentration--Cyrfgm38.8 kg (165 lb)03/10/2025 6:56 PM EST Dyuaza620.3 cm (5' 9 )03/10/2025 6:56 PM ESTBody Mass Index24.37105/10/2024 6:56 PM ESTdocumented in this encounter Discharge Instructions * Discharge Instructions* Reji Martin DO - 03/10/2025 9:14 PM EST Keep your follow up with your primary care physician Return to the emergency department with worsening pain, radiation of pain to your back, worsening shortness of breath, coughing up blood, lightheadedness or loss of consciousness, if you are unable to follow up with your primary care physician, or if you have any other concerns. * Attachments The following attachments cannot be sent through Care Everywhere. * Chest pain ??? Discharge instructions ([place]i) * Anxiety? Adult ED ([place]i) documented in this encounter Medications at Time of [...] mouth in the morning.05/07/2024 norethindrone ac-eth estradioL (05/13, ,) 1-20 mg-mcg per tablet Take 1 tablet by mouth in the morning. 21 tablet documented as of this encounter ED Notes * Reji Martin, DO - 03/10/2025 8:32 PM EST Images from the original note were not included. [facility] Pt Name: Trice Stallworth Birthdate: 2005 Chief Complaint: Chief Complaint Patient presents with Flu Symptoms Pt reports to ER with c/o just not feeling well Pt reports having a cough, fevers at home, burning in her chest, and brain fog History of Present Illness: Initial evaluation performed at 8:[address] Martin. Patient is a 19 y.o. female who presents to the ED for evaluation of flu symptoms. Pt states she has blurred vision, chest tightness, lightheadedness, tremors in legs. Pt notes that she had the same symptoms last year that were resolved after being placed on antianxiety medications. Pt states it ismore severe this time. Pt states she still takes her anxiety medications, sees a therapist, and sees a psychologist. Pt notes she has a PCP appointment on 04/03. Pt denies taking control, cough, previous clots, heart problems, surgeries, or recent long travel. History provided by: Patient clip bolter and wrapper used: No Past Medical History: Past Medical History: Diagnosis Date Anxiety Borderline personality disorder (CMS-HCC) Depression Hypertension Hypothyroidism Tachycardia Past Surgical History: History reviewed. No pertinent surgical history. Family History: Family History Problem Relation Age of Onset Atrial fibrillation Maternal Grandmother Hypertension Father Mental illness Father Hypothyroidism Mother Mental illness Mother Hyperthyroidism Brother Depression Brother Learning disabilities Brother Mental illness Brother Social History: Social History Socioeconomic History Marital status: Single Tobacco Use Smoking status: Former Current packs/day: 0.50 Average packs/day: 0.5 packs/day for 1.1 years (0.6 ttl pk-yrs) Types: Cigarettes Start date: 01/2024 Smokeless tobacco: Never Vaping Use Vaping status: Every Day Substances: Nicotine, Flavoring Devices: Disposable Substance and Sexual Activity Alcohol use: Yes Comment: socially Drug use: Never Sexual activity: Yes Partners: Male control/protection: Condom Other Topics Concern Caffeine Use No Social Drivers of Health Financial Resource Strain: Low Risk (12/18/2024) Received from [facility] Overall Financial Resource Strain (CARDIA) Difficulty of Paying Living Expenses: Not hard at all Food Insecurity: No Food Insecurity (03/10/2025) Hunger Screening Food Insecurity - Worry: Never True Food Insecurity - Inability: Never True Transportation Needs: No Transportation Needs (12/18/2024) Received from [facility] PRAPARE - Transportation Lack of Transportation (Medical): No Lack of Transportation (Non-Medical): No Physical Activity: Patient Declined (12/18/2024) Received from [facility] Exercise Vital Sign On average, how many days per week do you engage in moderate to strenuous exercise (like a brisk walk)?: Patient declined On average, how many minutes do you engage in exercise at this level?: Patient declined Stress: Stress Concern Present (12/18/2024) Received from [facility] [employer] [place] [facility] [employer] - Occupational Stress Questionnaire Feeling of Stress : To some extent Social Connections: Unknown (12/18/2024) Received from [facility] Social Connection and Isolation Panel In a typical week, how many times do you talk on the phone with family, friends, or neighbors?: More than three times a week How often do you get together with friends or relatives?: More than three times a week How often do you attend evangelical or mormonism services?: Patient declined Do you belong to any clubs or organizations such as evangelical groups, unions, fraternal or athletic groups, or school groups?: Patient declined How often do you attend meetings of the clubs or organizations you belong to?: Patient declined Are you , , , , never , or living with a partner?: Never Interpersonal Safety: Patient Declined (12/18/2024) [facility] Humiliation, Afraid, Rape, and Kick questionnaire Within the last year, have you been afraid of your partner or ex-partner?: Patient declined Within the last year, have you been humiliated or emotionally abused in other ways by your partner or ex-partner?: Patient declined Within the last year, have you been kicked, hit, slapped, or otherwise physically hurt by your partner or ex-partner?: Patient declined Within the last year, have you been raped or forced to have any kind of sexual activity by your partner or ex-partner?: Patient declined Housing Instability: Low Risk (12/18/2024) [facility] Housing Stability Vital Sign In the last 12 months, was there a time when you were not able to pay the mortgage or rent on time?: No In the past 12 months, how many times have you moved where you were living?: 0 At any time in the past 12 months, were you homeless or living in a jail (including now)?: No Review of Systems: Review of Systems Physical Exam: ED Triage Vitals Temp Heart Rate Resp BP SpO2 03/10/25185503/10/25185503/10/25190203/10/25190203/10/251855 36.1 ??C (97 ??F) 91 20 111/79 98 % Temp Source Heart Rate Source Patient Position BP Location FiO2 (%) 03/10/251855 -- 03/10/25185503/10/251855 -- Temporal Semi-fowlers Left arm Vitals: 03/10/25185503/10/251902 BP: 111/79 Temp: 36.1 ??C (97 ??F) TempSrc: Temporal Pulse: 91 Resp: 20 SpO2: 98% Height: 175.3 cm (5' 9 ) Weight: 74.8 kg (165 lb) Physical Exam Vitals reviewed. HENT: Head: Normocephalic and atraumatic. Eyes: Conjunctiva/sclera: Conjunctivae normal. Cardiovascular: Rate and Rhythm: Normal rate. Pulmonary: Effort: Pulmonary effort is normal. Breath sounds: Normal breath sounds. Abdominal: General: There is no distension. Palpations: Abdomen is soft. Musculoskeletal: General: Normal range of motion. Cervical back: Normal range of motion and neck supple. Skin: General: Skin is warm and dry. Neurological: General: No focal deficit present. Mental Status: She is alert and oriented to person, place, and time. GCS: GCS eye subscore is 4. GCS verbal subscore is 5. GCS motor subscore is 6. Psychiatric: Mood and Affect: Mood is anxious. Procedure: Procedures Re-evaluation: Zeus Diaz (scribe), documented on behalf and in the presence of Dr. Martin. Medical Decision Making This is an alert, oriented, 19-year-old female patient, she presents to the emergency department with chest tightness, shaking, lightheadedness, she experienced similar symptoms approximately 1 year prior for which she was treated with anxiolytic medication and had resolution of her symptoms. She is anxious appearing, heart is regular rate, rhythm, lungs are clear, no lower extremity edema, peripheral pulses are intact and symmetrical. She is in no risk factors for CAD with the exception of smoking, no risk factors for DVT/PE, no recent surgeries, no long travel, no calf swelling, no hemoptysis, no hormone replacement, no crack/cocaine use, no family history of CAD at a young age. Vital signs are within normal limits. Chest x-ray, EKG, viral swab obtained in the emergency department. EKG unremarkable, unchanged from previous. Chest x-ray within normal limits, no infiltrate. Viral swab negative. Symptoms appear consistent with acute on chronic anxiety, will discharge for outpatient follow- up, patient is in agreement with plan of care, she was given strict return precautions for worsening symptoms or concerns. Reji Martin, Attending Emergency Physician Amount and/or Complexity of Data Reviewed Labs: ordered. Details: Labs notable for: unremarkable Radiology: ordered and independent interpretation performed. Details: Imaging was independently viewed and is notable for no acute findings. Agree with officialradiologist read. ECG/medicine tests: ordered and independent interpretation performed. Decision- making details documented in ED Course. ED Course: ED Course as of 03/10/252113Mar 10, 20252038 PERC negative [MB] 2108 ECG Interpretation Rhythm- sinus Rate- 63 [place]- rightward Intervals- ME 131, QRS 87, QTC 417 Ischemia- none Assessment- sinus rhythm, no acute ischemic changes when compared to 04/05/2024 in 12/17/2024, borderline right axis deviation present previously [MB] ED Course User Index [MB] Reji Martin DO Clinical Impressions as of 03/10/252113 Chest tightness . ED Disposition None . Please note that portions of this note were completed with a voice recognition program. Efforts were made to edit the dictations but occasionally words are mis-transcribed. Zeus Yi 03/10/252042 Reji Martin DO 03/10/252128 Reji Martin DO 03/10/252139 documented in this encounter Plan of Treatment Not on file documented as of this encounter Procedures Procedure NamePriorityDate/TimeAssociated DiagnosisCommentsECG 12-LEADSTAT 03/10/2025 9:04 PM ESTXR CHEST 2 JDSMNKM40/17/2025 8:34 PM EST SARS/FLU A+B/RSV BY NAAT/MOLECULAR (M4RT COLLECTION TUBE)STAT105/10/2024 7:01 PM EST documented in this encounter Results * ECG 12 lead (03/10/2025 9:04 PM EST)Specimen (Source)Anatomical Location / LateralityCollection Method / VolumeCollection TimeReceived Time03/10/2025 9:04 PM EST Narrative Authorizing ProviderResult TypeResult StatusReji Martin DOECG ORDERABLESFinal ResultPerforming OrganizationAddressCity/State/ZIP CodePhone Number TRACEMASTERVUE * X-ray chest 2 views (03/10/2025 8:34 PM EST)Anatomical RegionLaterality ModalityBody, ChestN/AComputed RadiographySpecimen (Source)Anatomical Location / LateralityCollection Method / VolumeCollection TimeReceived Time03/10/2025 8:42 PM EST Narrative 03/10/2025 8:43 PM EST History: Cough Chest Xray Two-view study. ?? Findings/Impression: Lungs are clear. Cardiac silhouette and pulmonary vasculature are unremarkable. No focal consolidative airspace disease, pneumothorax, or pleural effusion is appreciated. No free air beneath the diaphragm is noted. ??The osseous structures are within normal limits for age. Finalized by Lisha Macias MD on 03/10/2025 8:43 PM Procedure Note Lisha Macias MD - 03/10/2025 History: Cough Chest Xray Two-view study. Findings/Impression: Lungs are clear. Cardiac silhouette and pulmonary vasculature areunremarkable. No focal consolidative airspace disease, pneumothorax, orpleural effusion is appreciated. No free air beneath the diaphragm isnoted. The osseous structures are within normal limits for age. Finalized by Lisha Macias MD on 03/10/2025 8:43 PM Authorizing ProviderResult TypeResult StatusMaxwake forest [facility] DIAGNOSTIC IMAGING ORDERABLESFinal Result * SARS/FLU A+B/RSV by NAAT/Molecular (M4RT Collection Tube) (03/10/2025 7:01 PM EST)ComponentValueRef RangeTest MethodAnalysis TimePerformed AtPathologist SignatureFLU A RPNYbmpgtzsLgeyaztj22/17/2025 7:45 PM ESTELYRIA MEMORIAL HOSPITALFLU B DJUIkimrzwfMtmmwaci05/17/2025 7:45 PM ESTELYRIA MEMORIAL HOSPITALRSV BY JLMKjyxbvndYkidfktr69/17/2025 7:45 PM EST [facility] COV 2 BY PCRNot DetectedNot Detected 03/10/2025 7:45 PM ESTGEORGETOWN BEHAVIORAL HOSPITALpecimen (Source) Anatomical Location / LateralityCollection Method / VolumeCollection Time Received TimeSwabNasopharyngeal structure / Cfskxrs6603/10/2025 7:01 PM EST 03/10/2025 7:07 PM EST Narrative [facility] - 03/10/2025 7:45 PM EST The Xpert Xpress SARS-CoV-2/Flu/RSV Plus test is a rapid, multiplexed real-time RT-PCR test intended for the simultaneous qualitative detection and differentiation of SARS-CoV-2, influenza A, influenza B and respiratory syncytial virus (RSV) viral RNA from individuals suspected of respiratory viral infection consistent with COVID-19 by Their healthcare provider. This test has not been validated in asymptomatic patients. The Xpert Xpress SARS-CoV-2 test is intended for use by qualified and trained operators who are performing tests using either [employer] or [employer] systems and is limited to laboratories that meet the CLIA requirements to perform high and moderate complexity tests. The Xpert Xpress SARS-CoV-2/Flu/RSV Plus is only for use under the Food and Drug Administration's Emergency Use Authorization. Results are for the simultaneous detection and differentiation of SARS-CoV-2, influenza A, influenza B and RSV nucleic acids in clinical specimens. SARS-CoV-2, influenza A, influenza B and RSV RNA identified by this test are generally detectable in upper respiratory samples during the acute phase of infection. Positive results are Indicative of the presence of the identified virus, but do not rule out bacterial infection or co-infection with other pathogens not detected by this test. Clinical correlation with patient history and other diagnostic information is necessary to determine patient infection status. The agent detected may not be the definite cause of disease. Negative results do not preclude SARS-CoV-2, influenza A, influenza B and RSV infection and should not be used as the sole basis for treatment or other patient management decisions. Negative results must be combined with clinical observations, patient history and epidemiological information. An Invalid result may occur with specimen-associated inhibition unable to be resolved with specimen repeat. Fact Sheet for Healthcare Providers: ?? https://www.fda.gov/media/640091/download ? Fact Sheet for Patients: ?? https://www.fda.gov/media/681343/download ?? Authorizing ProviderResult TypeResult StatusMaxsabino Martin [facility] HOSPITALICROBIOLOGY - GENERAL ORDERABLESFinal ResultPerforming OrganizationAddressCity/State/ZIP CodePhone Number [facility] [address] [place] [address], documented in this encounter Visit Diagnoses Diagnosis Chest tightness- Primary Other chest pain documented in this encounter Additional Health Concerns AssessmentNoted TimePHQ-9 Depression Total Score: 1110 4:00 PM EDT documented as of this encounter Care Teams Team MemberRelationshipSpecialtyStart DateEnd Date Ref Prov, [place] [address] PCP - General06/21/24documented as of this encounter
[2025-03-14 04:10] VITALS: BP 137/90; PULSE 68; TEMP 36.9; O2SAT 99; BMI 25.1
--- OUTSIDE RECORDS SUMMARY | 2025-03-14 04:48 | XMS_ITS | Clinical Summary ---
Author Organization [employer] tem Address [id number] [address] [place] [address] Care Team Providers Care Disease Case Manager Name Role Phone Ref Prov, Not In [...] 21 tablet 1205Active Active Problems ProblemNoted DateDiagnosed GcanLmmsxvb07/26/2025Trichotillomania in pediatric uwxazpo6902/13/20177510Opiekgg73/04/2016 Encounters DateTypeDepartmentCare McotLimmfpetkdw83/17/2025 8:24 PM EST - 03/10/2025 9:26 PM [facility] [address] [facility] [id number] Reji Martin DO Chest tightness (Primary Dx) Discharge Disposition: Home03/10/20256651Rsanpv28/13/2025 7:41 PM EST - 03/06/2025 7:44 PM [facility] [address] [place] [id number] Zachary Steele MD Discharge Disposition: Left Without Treatmentfrom Last 3 Months Immunizations ImmunizationAdministration DatesNext BswCHoE5110/22/2007,04/20/2005,04/28/2004, 03/15/2004,01/06/2004HPV91,02/13/2017Hep B, Adolescent or Pediatric 04/28/2004,03/15/2004,01/06/2004,2003Hepatitis A010/23/2012,01/17/2012HiB 01/19/2005,04/28/2004,03/15/2004,01/06/2004IPV10/22/2007,04/28/2004,03/15/2004, 01/06/2004Influenza LAIV (Nasal)02/10/2020Influenza, Injectable, quadrivalent (PF)02/23/2021,02/13/2018,02/13/2017Influenza, Icswyjkbecn14/18/2016,03/23/2015, 02/04/2006MMR10/22/2007,01/19/2005Meningococcal B, Omv105/16/2019,02/10/2020 Meningococcal Mrxihzrfa38/19/2020,03/23/2015Pneumococcal Conjugate 13-Valent 10/21/2004,07/16/2004,03/15/2004,01/06/2004Tdap11/30/2023,12/02/2013Varicella 10/22/2007,10/21/2004 Family History Medical HistoryRelationNameCommentsDepressionBrotherHyperthyroidismBrother Learning disabilitiesBrotherMental illnessBrotherHypertensionFatherMental illnessFatherAtrial fibrillationMaternal GrandmotherHypothyroidismMotherMental illnessMotherRelationNameStatusCommentsBrotherAliveFatherAliveMaternal GrandmotherAliveMotherAlive Social History Tobacco UseTypesPacks/DayYears UsedDateSmoking Tobacco: FormerCigarettes0.51.1 Started: 01/2024Smokeless Tobacco: NeverAlcohol UseStandard Drinks/WeekComments Yes0 (1 standard drink = 0.6 oz pure alcohol)sociallyPHQ-2AnswerDate Recorded Total Qoujq8318/23/2018ChildcareAnswerDate IkysyijxYwatldgwcUenepmi06/10/2019 EmploymentAnswerDate FpimnivxGmgarspklyRdodpsa44/10/2019Hunger ScreeningAnswer Date RecordedWithin the past 12 months we worried whether our food would run out before we got money to buy more.Never True03/10/2025Within the past 12 months the food we bought just didn't last and we didn't have money to get more.Never True03/10/2025Purpose - LifeAnswerDate RecordedPurpose and direction in life Kpcboqo26/10/2021CommentsNoSex and Gender InformationValueDate Recorded Sex Assigned at BirthNot on fileLegal BgvOnqhoh85/04/2015 3:17 PM EDTGender IdentityNot on fileSexual OrientationNot on file Last Filed Vital Signs Vital SignReadingTime TakenCommentsBlood Kbvrvdeg925/7403/10/2025 9:26 PM EST Ktkbh520803/10/2025 9:26 PM XEPFnlkptsyzef64.1 ??C (97 ??F)03/10/2025 6:56 PM EST Respiratory Fqnl745505/10/2024 9:26 PM ESTOxygen Xkfaxtbxeo47%03/10/2025 9:26 PM ESTInhaled Oxygen Concentration--Frkego85.8 kg (165 lb)03/10/2025 6:56 PM EST Nuyjny651.3 cm (5' 9 )03/10/2025 6:56 PM ESTBody Mass Index24.37105/10/2024 6:56 PM EST Plan of Treatment Health MaintenanceDue DateLast DoneCommentsDepression Phpnmqgda89/08/2025 11/30/2023OVID-19 Vaccine ( season)501/, 09/02/2020, 08/12/2020Influenza Qkslmzd22/01/660960/05/2020, 02/10/2020, 02/13/2018, Additional history existsChlamydia Tvfrhsymy62/12/2024, 12/19/2024, 10/24/2024, Additional history existsAdult BMI Efivejtfo71/ Tobacco Xsbiihmhr58Pap Smear/06/2024, 02/07/2024 DTaP,Tdap and Td Vaccines (8 - Td or Tdap)/11/2023, 12/02/2013, 10/22/2007, Additional history exists Medical Devices Not on file Procedures Procedure NamePriorityDate/TimeAssociated DiagnosisCommentsECG 12-LEADSTAT 03/10/2025 9:04 PM ESTXR CHEST 2 SMTATLZ93/17/2025 8:34 PM EST SARS/FLU A+B/RSV BY NAAT/MOLECULAR (M4RT COLLECTION TUBE)STAT105/10/2024 7:01 PM EST THIN PREP PAP UTLCXdwuqqc45/03/2025 2:51 PM EDT Well woman exam with routine gynecological exam CHLAMYDIA/GC BY PCR JOAO VLNYUqrcyks08/03/2025 2:51 PM EDT Unprotected sexual intercourse from Last 3 Months or Most Recently Relevant to Health Maintenance Results * ECG 12 lead (03/10/2025 9:04 PM EST)Specimen (Source)Anatomical Location / LateralityCollection Method / VolumeCollection TimeReceived Time03/10/2025 9:04 PM EST Narrative Authorizing ProviderResult TypeResult StatusMaxwell J Buchwalder DOECG ORDERABLESFinal ResultPerforming OrganizationAddressCity/State/ZIP CodePhone Number TRACEMASTERVUE [...] on 03/10/2025 8:43 PM Authorizing ProviderResult TypeResult StatusMaxsabino Martin [facility] DIAGNOSTIC IMAGING ORDERABLESFinal Result * SARS/FLU A+B/RSV by NAAT/Molecular (M4RT Collection Tube) (03/10/2025 7:01 PM EST)ComponentValueRef RangeTest MethodAnalysis TimePerformed AtPathologist SignatureFLU A NQZPqrdtrbmKfydtxgo36/17/2025 7:45 PM [facility]PROM[facility] HOSPITALFLU B QRRDxcivotsXmdxezhn74/17/2025 7:45 PM ESTPROM[facility]ITALRSV BY EPPXnslnhokTpwqywwx27/17/2025 7:45 PM EST [facility] COV 2 BY PCRNot DetectedNot Detected 03/10/2025 7:45 PM ESTPROMED[facility] AREApecimen (Source) Anatomical Location / LateralityCollection Method / VolumeCollection Time Received TimeSwabNasopharyngeal structure / Moeltdc7203/10/2025 7:01 PM EST 03/10/2025 7:07 PM EST Ac [facility] - 03/10/2025 7:45 PM EST The [...] operators who are performing tests using either [employer] or [employer] systems and is limited to laboratories that [...] repeat. Fact Sheet for Healthcare Providers: ?? https://www.fda.gov/media/795158/download ? Fact Sheet for Patients: ?? https://www.fda.gov/media/710837/download ?? Authorizing ProviderResult TypeResult StatusMaxsabino Martin DOMICROBIOLOGY - GENERAL ORDERABLESFinal ResultPerforming OrganizationAddressCity/State/ZIP CodePhone Number [facility] [address] [place] [address], [place] * Thin Prep Pap Test (10/24/2024 2:51 PM EDT)ComponentValueRef RangeTest Method Analysis TimePerformed AtPathologist SignatureCase ReportGynecologic Cytology Report ? Case: [id number] ? Authorizing Provider: ??Yenny Lozano MD ?Collected: ? 10/24/2024 1451 ? Ordering Location: ? [facility] ? Received: ?10/24/2024 1452 ? Obstetrics/Gynecology ? First Screen: ?Aissatou Howell, CT(ASCP) ? Rescreen: ?Thang Willson, ? CT(ASCP) ? Specimen: ?Thin Prep Pap, Cervix/Endocervix ? 10/28/2024 3:31 PM [facility] LABORATORYSpecimen Adequacy Satisfactory for evaluation, endocervical/transformation zone component absent 10/28/2024 3:31 PM [facility] LABORATORYInterpretationNEGATIVE FOR INTRAEPITHELIAL LESION OR MALIGNANCYNEGATIVE FOR INTRAEPITHELIAL LESION OR MALIGNANCY, UNSATISFACTORY, EPITHELIAL CELL ABNORMALITY, GLANDULAR EPITHELIAL CELL ABNORMALITY. , SQUAMOUS EPITHELIAL CELL ABNORMALITY, NO DIAGNOSIS RENDERED. 10/28/2024 3:31 PM [facility] at 1531 EDTOther FindingsFungal organisms morphologically consistent with Tara species are present.10/28/2024 3:31 PM [facility] LABORATORYAdditional InformationThe Pap test is a screening test with an inherent, but low, probability of error. The Pap test is primarily effective for the diagnosis and prevention of squamous cell carcinoma. Regular screening iscritical for prevention. ThinPrep liquid-based slides, which meet the Screwhead Polisher criteria for automated screening, have been screened by the ThinPrep Imaging System (as of 01/08/07) along with an additional manual rescreening by a radio communications mechanician and, if indicated, by a pathologist.10/28/2024 3:31 PM [facility] LABORATORYClinical Informationannual with pap10/28/2024 3:31 PM [facility] LABORATORYEmbedded Khammk9910/28/2024 3:31 PM [facility] LABORATORYSpecimen (Source)Anatomical Location / LateralityCollection Method / VolumeCollection TimeReceived TimeThinPrep cytology technique (qualifier value) (Cervix/Endocervix)10/24/2024 2:51 PM EDT10/24/2024 2:52 PM EDT Narrative Authorizing ProviderResult TypeResult StatusTiflety Monte Blake MDPATHOLOGY/CYTOLOGY ORDERABLESFinal ResultPerforming OrganizationAddressCity/State/ZIP CodePhone Number [facility] [address] [place] [address], * Chlamydia/GC by PCR Joao Swab (10/24/2024 2:51 PM EDT)ComponentValueRef Range Test MethodAnalysis TimePerformed AtPathologist SignatureCHLAMYDIA DNA(PCR) LlkirsxrEhemmkls82/04/2025 10:55 AM [facility] Comment:Chlamydia trachomatis not detected by nucleic acid amplification. This does not exclude the possibility of infection because results are dependent on adequate specimen collection.GONORRHOEAE DNA(PCR)ArpwxptiEdausjct26/04/2025 10:55 AM [facility] LABORATORYComment:Neisseria gonorrhoeae not detected by nucleic acid amplification. This does not exclude the possibil ity of infection because results are dependent on adequate specimen collection.Specimen (Source)Anatomical Location / LateralityCollection Method / VolumeCollection TimeReceived TimeSwabVaginal structure / Pxzaaae1810/24/2024 2:51 PM EDT10/24/2024 2:52 PM EDT Narrative Authorizing ProviderResult TypeResult StatusTiflety Lozano MDMICROBIOLOGY - GENERAL ORDERABLESFinal ResultPerforming OrganizationAddressCity/State/ZIP Code Phone Number [facility] [address] [place] [address], [place] [phone] from Last 3 Months or Most Recently Relevant to Health Maintenance Insurance * Guarantor: Triec StallworthAccount TypeRelation to PatientDate of BirthPhoneBilling AddressPersonal/ChlydoZmla98[birth year][address] [place] [address] Care Teams Team MemberRelationshipSpecialtyStart DateEnd Date Ref Prov, [place] [address] PCP - General06/21/24
--- OUTSIDE RECORDS SUMMARY | 2025-03-14 04:48 | XMS_ITS | Patient Health Record ---
Author Organization [facility] [place] Address [address] [place] [address] Care Team Providers Care Yarding And Folding Machine Operator Name Role Phone None, Unknown or Primary Care Provider UnavailJenna Gomes [phone] Allergies No Known Allergies Reason For Referral No Information Medications Medication SIG (Take, Route, Frequency, Duration) Notes Start Date End Date Status Terconazole 0.8 % 1 applicatorful at b edtime Vaginal Once a day; Duration: 3 day(s) 4ActivehydrOXYzine HClActiveAbilifyActive Immunizations Vaccine Route Administration Date Status Comme nts HPV VACCINE 9 VALENT Unknown 02/13/2017 Administered HPV VACCINE 9 KCMRPAZvzgzvl76/23/2018Administered Social History Tobacco Use: Social History Observation Description Date Details (start date - stop date) Current Smoker NA - NA Tobacco Control (Standard) Question Answer Notes Tobacco use: Current smoker Problems Problem Type SNOMED Code ICD Code Onset Dates Problem Status W/U Status Risk Notes Problem 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) Secondar y amenorrhea (N91.1) Activeconfirmed Encounters Encounter Location Date Provider Diagnosis Gynecology Main [place] [address] [place] [address] 02/18/2025 Jenna Castro [facility]ne[facility] [id number] [place] [address] 02/06/2025deana Castro Plan Of Treatment No Information Insurance Providers Payer Name Payer Address Payer Phone Subscriber Number Group Number Insured Name Patient Relationship to Insured Coverage Start Date Coverage End Date [employer] MED[employer] [address] [place] [id number] [facility] - Insured does not have Financial Responsibility (includes legally adopted child) Medical (General) History Medical History History ICD Code CAT
--- OUTSIDE RECORDS SUMMARY | 2025-03-14 04:48 | XMS_ITS | Clinical Summary ---
Author Organization [facility] Address [address] [place] [address] Care Team Providers Care Health Clinician Name Role Phone Liam Douglas Aurora YOST Primary Care Provider [phone]- [phone] Allergies No known active allergies Medications * This document contains information received from the source organization and may not represent a complete record from that organization. MedicationSigDispense QuantityRefillsLast FilledStart DateEnd DateStatus levothyroxine (Synthroid, Levoxyl) 25 MCG tablet Indications:HypothyroidismTake 25 mcg by mouth every morning (before breakfast). Active lamoTRIgine (LaMICtal) 25 MG tablet Indications:Mood stabiliztionTake 1 tablet (25 mg) by mouth daily for 12 days. 12 tablet 5Active lamoTRIgine (LaMICtal) 25 MG tablet Indications:mood stabilizationTake 2 tablets (50 mg) by mouth daily for 14 days. Do not start before January 03, 2025. 28 tablet 5Active lamoTRIgine (LaMICtal) 25 MG tablet Indications:mood stabilizationTake 3 tablets (75 mg) by mouth daily for 14 days. Do not start before January 18, 2025. 42 tablet 5Active Active Problems ProblemNoted DateDiagnosed DateBorderline personality bxaglpzt79/29/2025 Gobwuhspg07/29/2025acterial pjtlynfoj99/29/2025Urinary tract infection 12/20/2024Eating disorder, hdtsqqcagqh66/29/4917Jgjticmofpwxyr18/29/2025 Resolved Problems ProblemNoted DateDiagnosed DateResolved DateSuicidal /26/2025 12/20/2024 Encounters * This document contains information received from the source organization and may not represent a complete record from that organization. DateTypeDepartmentCare QfrnHbqudrvuipf98/27/0183Uawrhj49/26/2025Travelfrom Last 3 Months Social History Tobacco UseTypesPacks/DayYears UsedDateSmoking Tobacco: NeverSmokeless Tobacco: NeverAlcohol UseStandard Drinks/WeekCommentsNot Currently0 (1 standard drink = 0.6 oz pure alcohol)[facility] UtilitiesAnswerDate RecordedIn the past 12 months has the [employer], gas, oil, or water company threatened to shut off services in your home?No12/18/2024Humiliation, Afraid, Rape, and Kick questionnaireAnswerDate RecordedWithin the last year, have you been afraid of your partner or ex-partner?Patient atlbvjuh37/27/2025Within the last year, have you been humiliated or emotionally abused in other ways by your partner or ex-partner? Patient /27/2025Within the last year, have you been kicked, hit, slapped, or otherwise physically hurt by your partner or ex-partner?Patient dsucgdox40/27/2025Within the last year, have you been raped or forced to have any kind of sexual activity by your partner or ex-partner?Patient declined 12/18/2024Social Connection and Isolation PanelAnswerDate RecordedIn a typical week, how many times do you talk on the phone with family, friends, or neighbors?More than three times a week12/18/2024How often do you get together with friends or relatives?More than three times a week12/18/2024How often do you attend synagogue or jainism services?Patient /27/2025Do you belong to any clubs or organizations such as synagogue groups, unions, fraternal or athletic groups, or school groups?Patient /27/2025How often do you attend meetings of the clubs or organizations you belong to?Patient ajwvlzsl98/27/2025 Are you , , , , never , or living with a partner?Never saxqyww5212/18/2024UDIT-CAnswerDate RecordedQ1: How often do you have a drink containing alcohol?Patient unable to gxhtte2012/18/2024Q2: How many drinks containing alcohol do you have on a typical day when you are drinking? Patient unable to iasyso9612/18/2024Q3: How often do you have six or more drinks on one occasion?Patient unable to soabsy7612/18/2024Overall Financial Resource Strain (CARDIA)AnswerDate RecordedHow hard is it for you to pay for the very basics like food, housing, medical care, and heating?Not hard at all12/18/2024 PHQ-2AnswerDate RecordedPatient Health Questionnaire-2 Gmlik264Finblue mountain hospital [place] of Occupational Health - Occupational Stress QuestionnaireAnswerDate RecordedDo you feel stress - tense, restless, nervous, or anxious, or unable to sleep at night because yourmind is troubled all the time - these days?To some nhfsab3212/18/2024Exercise Vital SignAnswerDate RecordedOn average, how many days per week do you engage in moderate to strenuous exercise (like a brisk walk)? Patient usunlcix80/27/2025On average, how many minutes do you engage in exercise at this level?Patient obwnbcbt61/27/2025Hunger Vital SignAnswerDate Recorded Within the past 12 months, you worried that your food would run out before you got the money to buymore.Never true12/18/2024Within the past 12 months, the food you bought just didn't last and you didn't have money to get more.Never true 12/18/2024PRAPARE - TransportationAnswerDate RecordedIn the past 12 months, has lack of transportation kept you from medical appointments or from getting medications?No12/18/2024In the past 12 months, has lack of transportation kept you from meetings, work, or from getting things needed for daily living?No 12/18/2024PHQ-9AnswerDate RecordedPatient Health Questionnaire-9 Score6 12/18/2024Housing Stability Vital SignAnswerDate RecordedIn the last 12 months, was there a time when you were not able to pay the mortgage or rent on time?No 12/18/2024In the past 12 months, how many times have you moved where you were living?t any time in the past 12 months, were you homeless or living in a snf (including now)?No12/18/2024EducationAnswerDate RecordedWhat is the highest level of school you have completed or the highest degree you have received?Some college, no vfujlu2312/18/2024CommentsUnknownSex and Gender InformationValueDate RecordedSex Assigned at BirthNot on fileLegal SexFemale 03/16/2024 4:57 AM ESTGender IdentityNot on fileSexual OrientationNot on file 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 Not on fileNot on file Last Filed Vital Signs Vital SignReadingTime TakenCommentsBlood Rbkofdxc591/7708 8:08 AM EDT Xehlz473312/20/2024 8:08 AM PCAQekampejkar04.7 ??C (98.1 ??F)12/20/2024 8:08 AM EDTRespiratory Sgou942612/20/2024 8:08 AM EDTOxygen Fdugmebois429%12/20/2024 8:08 AM EDTInhaled Oxygen Concentration--Xbixks41 kg (130 lb)12/17/2024 10:25 PM EDT Qahqha846.6 cm (5' 4 )12/17/2024 10:25 PM EDTBody Mass Index22.31012/17/2024 10:25 PM EDT Plan of Treatment Health MaintenanceDue DateLast DoneCommentsHIV Fvpztyvjg88/28/2004Hepatitis C Mphnfpcdj88/28/2022OVID-19 Vaccine ( season)/, 09/02/2020, 08/12/2020Influenza Vaccine (#1)/05/2020, 02/10/2020, 02/13/2018, Additional history existsDepression Vcothvsygr68/27/202608/ TSH Level/12/2024Pap Smear07/06/2024DTaP/Tdap/Td Vaccines (8 - Td or Tdap)/11/2023, 12/02/2013, 10/22/2007, Additional history existsZoster Vaccines (1 of 2), 10/21/2004RSV Immunization for Adults (1 - 1-dose 75+ series)10/19/2078Hepatitis B VaccinesCompleted 04/28/2004, 04/28/2004, 03/15/2004, Additional history existsPneumococcal Vaccine: Pediatrics (0 to 5 Years) and At-Risk Patients (6 to 49 Years)Completed 10/21/2004, 07/16/2004, 03/15/2004, Additional history existsHIB Vaccines Xfedxzapr30/28/2005, 04/28/2004, 03/15/2004, Additional history existsIPV XoijexulRmtuhkkwg00/30/2008, 04/28/2004, 04/28/2004, Additional history exists MMR WmzgmynnEobcoamay14/30/2008, 01/19/2005Varicella VaccinesCompleted 10/22/2007, 10/21/2004Hepatitis A FyjzalogZomzuizrh28/02/2013, 01/17/2012HPV HhaabwiuChijfwius80/23/2018, 02/13/2017Meningococcal PwouiikPyattzlmp34/19/2020, 03/23/2015Meningococcal B ShlpbsaReanbgoij71/23/2020, 02/10/2020RSV Immunization under 20 MonthsAged OutNo longer eligible based on patient's age to complete this topicRotavirus VaccinesAged OutNo longer eligible based on patient's age to complete this topic Procedures Procedure NamePriorityDate/TimeAssociated DiagnosisCommentsRPR WITH REFLEX QUANT Pending Kyeantbqg07/28/2025 12:37 PM EDT CHLAMYDIA/GONORRHEAPending Kxcqorsfi52/28/2025 12:35 PM EDT VAGINITIS PANEL MVP PCRPending Cmcptofcb65/28/2025 12:35 PM EDT COMPLETE URINALYSIS WITH REFLEX TO CULTUREPending Pgixfgfoe17/28/2025 12:34 PM EDT URINE CULTUREPending Ntzldijbz93/28/2025 12:34 PM EDT LIPID LZBTCRacpggy44/ 6:15 AM EDT HEMOGLOBIN R6XNcnbwti84/27/2025 6:15 AM EDT ECG 12-AZZTQNYV32/26/2025 7:20 PM EDT HCG QUALITATIVE BDEBUNRBI46/26/2025 7:05 PM EDT DRUGS OF JTOEXUEBZ28/26/2025 7:05 PM EDT SARS-COV-2 UPHZOCGLSHH13/26/2025 6:43 PM EDT CVZZRO2612/17/2024 6:42 PM EDT CBC WITH AUTO OCDURJPEZKCFWJNR63/26/2025 6:42 PM EDT QYMNJHELKMQ73/26/2025 6:42 PM EDT COMPREHENSIVE METABOLIC EPJRNCDDU00/26/2025 6:42 PM EDT from Last 3 Months Results * RPR (12/19/2024 12:37 PM EDT)ComponentValueRef RangeTest MethodAnalysis Time Performed AtPathologist AuwtgbyskNHUIgirncvtnajMtqqxamuplt51/28/2025 3:45 PM EDTSMAIN CAMPUS MEDICAL CENTERSpecimen (Source)Anatomical Location / LateralityCollection Method / VolumeCollection TimeReceived TimeBloodVenous blood specimen / UnknownVenipuncture / Fgjfisr9912/19/2024 12:37 PM EDT12/19/2024 1:18 PM EDT Narrative Authorizing ProviderResult TypeResult StatusJaneth RICHARDSON BLOOD ORDERABLESFinal ResultPerforming OrganizationAddressCity/State/ZIP CodePhone Number [address] [address], * (ABNORMAL) Vaginitis Panel MVP PCR (12/19/2024 12:35 PM EDT)ComponentValueRef RangeTest MethodAnalysis TimePerformed AtPathologist SignatureBacterial VaginosisDetected(A)Not Detected CEPHEID GENEXPERT 12/19/2024 5:[address] [facility]NE HOSPITALCandida sppNot DetectedNot Detected CEPHEID GENEXPERT 12/19/2024 5:[address] [facility]NE HOSPITALCandida glabrata/kruseiNot DetectedNot Detected CEPHEID GENEXPERT 12/19/2024 5:[address] [facility]NE HOSPITALTrichomonas VaginalisNot DetectedNot Detected CEPHEID GENEXPERT 12/19/2024 5:[address] ANNE HOSPITALSpecimen (Source)Anatomical Location / LateralityCollection Method / VolumeCollection TimeReceived TimeSwabVaginal structure / UnknownNon-blood Collection / Krcymqm8312/19/2024 12:35 PM EDT 12/19/2024 1:14 PM EDT Narrative [facility] - 12/19/2024 5:18 PM EDT Methodology: real-time PCR A negative result does not preclude a possible infection. This assay can detect the Tara species C. albicans, C. tropicalis, C. parapsilosis, and C. dubliniensis but does not differentiate among them. The assay also detects C. glabrata and C. krusei, butdoes not differentiate between them. Results should be interpreted in conjunction with other clinical data. This test has not been validated for use with specimens collected by patients at home. This test is intended for medical purposes only and is not valid for the evaluation of suspected sexual abuse or for other forensic purposes. Authorizing ProviderResult TypeResult StatusJaneth RICHARDSON MICROBIOLOGY - GENERAL ORDERABLESFinal ResultPerforming OrganizationAddressCity/State/ZIP Code Phone Number [facility] [address] [place] [address], * (ABNORMAL) Chlamydia/Gonorrhea (12/19/2024 12:35 PM EDT)ComponentValueRef RangeTest MethodAnalysis TimePerformed AtPathologist SignatureN gonorrhoeae, DNA ProbeNot DetectedNot Detected CEPHEID GENEXPERT 12/19/2024 5:[address] ANNE HOSPITALChlamydia, DNA ProbeDetected(A)Not Detected CEPHEID GENEXPERT 12/19/2024 5:49 PM EDTSMAIN CAMPUS MEDICAL CENTERSpecimen (Source)Anatomical Location / LateralityCollection Method / VolumeCollection TimeReceived TimeSwabCervix uteri structure / UnknownNon-blood Collection / Sxsjkuw7712/19/2024 12:35 PM EDT 12/19/2024 1:13 PM EDT Narrative [facility] - 12/19/2024 5:49 PM EDT Methodology: real-time PCR This test is intended for medical purposes only and is not intended for the evaluation of suspectedsexual abuse or for other forensic purposes. In certain contexts, culture may be required to meet applicable laws and regulations for diagnosis of C. trachomatis and N. gonorrhoeae infections. Per 2014 CDC recommmendations, this test does not include confirmation of positive results by an alternative nucleic acid target. A negative result does not exclude the possibility of infection. A result of invalid indicates thata new specimen should be collected if clinically indicated. Authorizing ProviderResult TypeResult StatusJaneth RICHARDSON MICROBIOLOGY - GENERAL ORDERABLESFinal ResultPerforming OrganizationAddressCity/State/ZIP Code Phone Number [facility] [address] [place] [address], * (ABNORMAL) Complete Urinalysis with reflex to Culture (12/19/2024 12:34 PM EDT)ComponentValueRef RangeTest MethodAnalysis TimePerformed AtPathologist SignatureColor, UrineYellowLt. Fuobkx9212/20/2024 11:59 AM [facility] Clarity, UrineSlightly Cloudy(A)Clear12/20/2024 11:59 AM [facility] pH, Urine6.55.0 - 8.0 pH12/20/2024 11:59 AM [facility]ALTHLeukocytes, Vjaqz026(A)Negative Gustavo/uL12/20/2024 11:59 AM [facility]ALTHNitrite, GeincLinlaqewIrerqjhz00/29/2025 11:59 AM EDPROMEDICA TOLEDO HOSPITALProtein, Urine NegativeNegative mg/dL12/20/2024 11:59 AM [facility]ALTHGlucose, Urine NormalNormal (<70) mg/dL12/20/2024 11:59 AM EDPROMEDICA TOLEDO HOSPITALBilirubin, UrineNegativeNegative mg/dL12/20/2024 11:59 AM [facility]Ketones, UrineNegativeNegative mg/dL12/20/2024 11:59 AM [facility] Urobilinogen, UrineNormalNormal (0-1) mg/dL12/20/2024 11:59 AM [facility]Blood, UrineNegativeNegative mg/dL12/20/2024 11:59 AM [facility] Volume, Urine8-12 mL12/20/2024 11:59 AM [facility]RBC, Urine0-20 - 2 /HPF12/20/2024 11:59 AM [facility]ALTHWBC, Dxgyf48-92(A)0 - 5 /HPF 12/20/2024 11:59 AM [facility]ALTHSquamous Epithelial, Qlznp38-71(A)3 - 5 /HPF12/20/2024 11:59 AM [facility]Bacteria, UrineFew(A)Negative /HPF 12/20/2024 11:59 AM [facility]Mucus, UrineFewNegative /LPF12/20/2024 11:59 AM [facility]ALTHSPECIFIC GRAVITY OF URINE (NUMERIC)1.0221.005 - 1.3270412/20/2024 11:59 AM [facility]ALTHSpecimen (Source)Anatomical Location / LateralityCollection Method / VolumeCollection TimeReceived Time UrineUrine specimen obtained by clean catch procedure / UnknownNon-blood Collection / Bwoebwj3512/19/2024 12:34 PM EDT12/20/2024 10:09 AM EDT Narrative [facility] - 12/20/2024 11:59 AM EDT This specimen has been reflexed to urine culture. Authorizing ProviderResult TypeResult StatusJaneth RICHARDSON URINE ORDERABLESFinal ResultPerforming OrganizationAddressCity/State/ZIP CodePhone Number [facility] [address] [place] [address], * Urine culture (12/19/2024 12:34 PM EDT)ComponentValueRef RangeTest Method Analysis TimePerformed AtPathologist SignatureUrine CultureNormal urogenital eric present BROTH MICRODILUTION 12/22/2024 11:12 AM [facility] (Source)Anatomical Location / LateralityCollection Method / VolumeCollection TimeReceived TimeUrineUrine specimen obtained by clean catch procedure / UnknownNon-blood Collection / Ejguuss0812/19/2024 12:34 PM EDT12/20/2024 10:09 AM EDT Narrative Authorizing ProviderResult TypeResult StatusJaneth RICHARDSON MICROBIOLOGY - GENERAL ORDERABLESFinal ResultPerforming OrganizationAddressCity/State/[place] [address], * Hemoglobin A1c (12/18/2024 6:15 AM EDT)ComponentValueRef RangeTest Method Analysis TimePerformed AtPathologist SignatureHEMOGLOBIN A1C5.1<5.7 %HbA1C 12/18/2024 6:36 AM [facility]ALTHComment: Normal less than 5.7% Prediabetes 5.7% to 6.4% Diabetes 6.5% or higher --HgbA1C levels may not be accurate in patients who have renal disease, received recent blood transfusions, are anemic, or who have dyshemoglobinemia. ESTIMATED AVERAGE WINGEAK108on/dL12/18/2024 6:36 AM [facility] (Source)Anatomical Location / LateralityCollection Method / VolumeCollection TimeReceived TimeBloodVenous blood specimen / UnknownVenipuncture / Unknown 12/18/2024 6:15 AM EDT12/18/2024 6:24 AM EDT Narrative [facility] - 12/18/2024 6:36 AM EDT HbA1c values of 5.7-6.4 percent indicate an increased risk for developing diabetes mellitus. HbA1c values greater than or equal to 6.5 percent are diagnostic of diabetes mellitus. For diagnosis of diabetes in individuals without unequivocal hyperglycemia, results should be confirmed by repeat testing. Authorizing ProviderResult TypeResult StatusTerrell RICHARDSON BLOOD ORDERABLES Final ResultPerforming OrganizationAddressCity/State/[place] [address], * Lipid panel - fasting (12/18/2024 6:15 AM EDT)ComponentValueRef RangeTest MethodAnalysis TimePerformed AtPathologist AehrattxuBNPZXQAVFFVS33<150 mg/dL 12/18/2024 6:59 AM EDREGENCY HOSPITAL COMPANYFREDERIC CASTANEDABGMKYFGMOPFELYE746<200 mg/dL12/18/2024 6:59 AM EDREGENCY HOSPITAL COMPANYFREDERIC CASTANEDAHDL BMZXLKVARFW53>=60 mg/dL12/18/2024 6:59 AM EDREGENCY HOSPITAL COMPANYFREDERIC [facility]THCHOL/RSV189 6:59 AM EDREGENCY HOSPITAL COMPANYFREDERIC CASTANEDAComment: Ref Range: < 3 Low Risk for CHD 3-6 ??Mod Risk for CHD > 6 High Risk for CHD VERY LOW DENSITY LIPOPROTEIN, CCLIQZEHXB59<=30 mg/dL12/18/2024 6:59 AM [facility] CENTERFREDERIC CASTANEDANON-HDL CHOLESTEROL, LDSOLECVVH35<[address] 6:59 AM [facility]ALTHLOW DENSITY YTKBWTUPJLX927 - <100 mg/dL12/18/2024 6:59 AM [facility]ALTHSpecimen (Source)Anatomical Location / LateralityCollection Method / Volume Collection TimeReceived TimeBloodVenous blood specimen / UnknownVenipuncture / Svvtvuu4412/18/2024 6:15 AM EDT12/18/2024 6:24 AM EDT Narrative Authorizing ProviderResult TypeResult StatusTodd Carl RICHARDSON BLOOD ORDERABLES Final ResultPerforming OrganizationAddressCity/State/ZIP CodePhone Number [address] [address], * ECG 12 lead (12/17/2024 7:20 PM EDT)ComponentValueRef RangeTest MethodAnalysis TimePerformed AtPathologist SignatureHeart Vokj37gihXC EPIPHANYQRSD Atisqgkn67 msCV EPIPHANYQT Ytojgnjb393eoMJ EPIPHANYQTC Gkhwlvav754rvDP EPIPHANYP Axis45 degreesCV EPIPHANYQRS Gkgi54jrsvqpnGB EPIPHANYT Wave Ocvp84ncfuhirOZ EPIPHANY [place] Mriiesel285bpYZ EPIPHANYSpecimen (Source)Anatomical Location / Laterality Collection Method / VolumeCollection TimeReceived Time12/17/2024 7:18 PM EDT Impressions CV EPIPHANY - 12/17/2024 7:21 PM EDT Sinus arrhythmia Electronically Signed On 12-17-2024 19:21:42 EDT by Shayna Stoddard Narrative Procedure Note Shayna Stoddard MD - 12/17/2024 IMPRESSION: Sinus arrhythmia Electronically Signed On 12-17-2024 19:21:42 EDT by Shayna Stoddard Authorizing ProviderResult TypeResult StatusSaalberto Blunt DOCV ECG ORDERABLES Final ResultPerforming OrganizationAddressCity/State/ZIP CodePhone Number CV JUAN PABLO * hCG, urine, qualitative (12/17/2024 7:05 PM EDT)ComponentValueRef RangeTest MethodAnalysis TimePerformed AtPathologist SignatureHCG,URINE QUALNegative Fwxzdmly38/26/2025 7:15 PM [facility]Comment:Please note: Very dilute urine specimens, as indicated by a low specific gravity, may not contain re presentative levels of hCG. If is still suspected, a first morning urine specimen should be collected 48 hours later and tested.Specimen (Source) Anatomical Location / LateralityCollection Method / VolumeCollection Time Received TimeUrineUrine specimen obtained by clean catch procedure / Unknown Non-blood Collection / Qbmfpxn2312/17/2024 7:05 PM EDT12/17/2024 7:07 PM EDT Narrative [facility] - 12/17/2024 7:15 PM EDT is the most common reason for HCG in urine, although choriocarcinoma, hydatidiform mole, and certain nontrophoblastic malignancies also result in detectable urinary HCG levels. Sensitivity = 20mIU/mL. Authorizing ProviderResult TypeResult StatusSaalberto Blunt DOLAB URINE ORDERABLES Final ResultPerforming OrganizationAddressty/State/ZIP CodePhone Number [address] [address], * Drug screen panel, emergency (12/17/2024 7:05 PM EDT)ComponentValueRef Range Test MethodAnalysis TimePerformed AtPathologist SignatureAMPHETAMINE SCREEN Frnlbuwf91/26/2025 7:39 PM EDTSMAIN CAMPUS MEDICAL CENTERBARBITURATES SCREENNegative 12/17/2024 7:39 PM EDPROMEDICA TOLEDO HOSPITALBENZODIAZEPINE TJZGZOCzwwovtn03/26/2025 7:39 PM EDPROMEDICA TOLEDO HOSPITALCOCAINE METAB. DRWOHWYcihxfqy72/26/2025 7:39 PM EDT [facility] CAMPUSMETHADONE QKODXTWhmlmysf38/26/2025 7:39 PM EDPROMEDICA TOLEDO HOSPITAL OPIATES BLLWTRKvlpwcgw28/26/2025 7:39 PM EDTSMAIN CAMPUS MEDICAL CENTEROXYCODONE SCREEN Qogbcdph94/26/2025 7:39 PM EDPROMEDICA TOLEDO HOSPITALPHENCYCLIDINE SCREENNegative 12/17/2024 7:39 PM EDPROMEDICA TOLEDO HOSPITALFENTANYL SCREEN, UR QUALNegative 12/17/2024 7:39 PM [facility]Specimen (Source)Anatomical Location / LateralityCollection Method / VolumeCollection TimeReceived TimeUrineUrine specimen obtained by clean catch procedure / UnknownNon-blood Collection / Lmutgwi1512/17/2024 7:05 PM EDT12/17/2024 7:07 PM EDT Narrative [facility] - 12/17/2024 7:39 PM EDT The expected value for all of the [...] If confirmation is needed, request confirmation under separateorder. Authorizing ProviderResult TypeResult StatusSamuel Lucila Blunt DOL URINE ORDERABLES Final ResultPerforming OrganizationAddressCity/State/ZIP CodePhone Number [facility] [address] [place] [address], * SARS-CoV-2 Antigen (12/17/2024 6:43 PM EDT)ComponentValueRef RangeTest Method Analysis TimePerformed AtPathologist WnoysxfynIRVC-NzZ-5 AntigenNegative Negative BINAXNOW 12/17/2024 7:18 PM EDTSBLANCHARD VALLEY HEALTH SYSTEM BL[facility] HOSPITALFREDERIC [facility] NORTHComment: A negative result does not rule out the possibility of SARS-CoV-2 infection. NAAT-based methods should be considered for symptomatic patients presenting greater than seven days after onset of symptoms. Method: Lateral flow immunoassay. Fact sheets for healthcare providers and patients can be found at the following sites: https://www.fda.gov/media/279150/download https://www.fda.gov/media/492866/download Specimen (Source)Anatomical Location / LateralityCollection Method / Volume Collection TimeReceived TimeSwabNasal structure / UnknownNon-blood Collection / Mlkmjmr0612/17/2024 6:43 PM EDT12/17/2024 6:59 PM EDT Narrative Authorizing ProviderResult TypeResult StatusSamudenny SAMS MICROBIOLOGY - GENERAL ORDERABLESFinal ResultPerforming OrganizationAddressCity/State/ZIP Code Phone Number [facility] [address] [place] [address], * (ABNORMAL) CBC auto differential (12/17/2024 6:42 PM EDT)ComponentValueRef RangeTest MethodAnalysis TimePerformed AtPathologist SignatureAuto WBC7.93.6 - 10.7 10*3/uL12/17/2024 6:54 PM EDTSMAIN CAMPUS MEDICAL CENTERRBC4.883.80 - 5.20 10*6/uL 12/17/2024 6:54 PM EDTSMAIN CAMPUS MEDICAL CENTERPADWAltevxgbvy00.211.7 - 16.0 g/dL12/17/2024 6:54 PM EDTSMAIN CAMPUS MEDICAL CENTERIRDIIbtghdrxlj56.735.0 - 47.0 %12/17/2024 6:54 PM EDT [facility]FR[facility]IC WTPZECX27.577.0 - 99.0 fL12/17/2024 6:54 PM EDTSMAIN CAMPUS MEDICAL CENTERMCH 29.126.0 - 34.0 pg12/17/2024 6:54 PM EDTSMAIN CAMPUS MEDICAL CENTERMCHC33.330.5 - 36.0 % 12/17/2024 6:54 PM EDLYNETTE CASTANEDARDW11.911.5 - 15.0 %12/17/2024 6:54 PM EDLYNETTE CASTANEDAXKUJCfixljtoz324443 - 440 10*3/12/17/2024 6:54 PM EDLYNETTE CASTANEDAMPV9.69.0 - 12.7 fL12/17/2024 6:54 PM EDLYNETTE LITTLE CITYnRBC0.00.0 - 2.0 /100 WBCs12/17/2024 6:54 PM EDSMILEYUMRAFAEL LITTLE CITYNeutrophils Pxvyitbq24.7 38.0 - 82.0 %12/17/2024 6:54 PM EDLYNETTE LITTLE CITYLymphocytes Ftcdkfgn76.6 15.0 - 45.0 %12/17/2024 6:54 PM EDLYNETTE LITTLE CITYMonocytes Relative5.85.0 - 13.0 %12/17/2024 6:54 PM EDLYNETTE LITTLE CITYEosinophils Relative6.3(H)0.0 - 6.0 %12/17/2024 6:54 PM EDLYNETTE LITTLE CITYBasophils Relative1.30.0 - 2.0 % 12/17/2024 6:54 PM EDLYNETTE CASTANEDAImmature Grans %0.30.0 - 2.0 %12/17/2024 6:54 PM EDLYNETTE LITTLE CITYNeutrophils Absolute4.71.8 - 7.5 10*3/12/17/2024 6:54 PM EDLYNETTE LITTLE CITYLymphocytes Absolute2.21.0 - 4.3 10*3/12/17/2024 6:54 PM EDSMILEYUMRAFAEL LITTLE CITYMonocytes Absolute0.50.0 - 0.9 10*3/12/17/2024 6:54 PM EDTSUMRAFAEL LITTLE CITYEosinophils Absolute0.50.0 - 0.5 10*3/12/17/2024 6:54 PM EDLYNETTE LITTLE CITYBasophils Absolute0.10.0 - 0.2 10*3/12/17/2024 6:54 PM EDPROMEDICA TOLEDO HOSPITALImmature Grans Absolute0.0<0.1 10*3/uL12/17/2024 6:[address] [facility] (Source)Anatomical Location / Laterality Collection Method / VolumeCollection TimeReceived TimeBloodVenous blood specimen / UnknownVenipuncture / Fmnugce2712/17/2024 6:42 PM EDT12/17/2024 6:50 PM EDT Narrative Authorizing ProviderResult TypeResult StatusSamuel D Jose Raul DOLAB BLOOD ORDERABLES Final ResultPerforming OrganizationAddressCity/State/[place] [address], * CK (12/17/2024 6:42 PM EDT)ComponentValueRef RangeTest MethodAnalysis Time Performed AtPathologist RmooydowqRP7115 - 185 U/L12/17/2024 7:19 PM [facility] (Source)Anatomical Location / LateralityCollection Method / VolumeCollection TimeReceived TimeBloodVenous blood specimen / Unknown Venipuncture / Issxhgf5312/17/2024 6:42 PM EDT12/17/2024 6:49 PM EDT Narrative Authorizing ProviderResult TypeResult StatusSamuel D Jose Raul DOLAB BLOOD ORDERABLES Final ResultPerforming OrganizationAddressty/State/[facility] [place] [address], * Ethanol (12/17/2024 6:42 PM EDT)ComponentValueRef RangeTest MethodAnalysis TimePerformed AtPathologist SignatureETHANOL IN SER/PLAS<10<10 mg/dL12/17/2024 7:19 PM [facility] (Source)Anatomical Location / Laterality Collection Method / VolumeCollection TimeReceived TimeBloodVenous blood specimen / UnknownVenipuncture / Htutauf0512/17/2024 6:42 PM EDT12/17/2024 6:49 PM EDT Narrative [facility] - 12/17/2024 7:19 PM EDT MEN'S DESIGNER depression is seen >100 mg/dL. NOTE: This result is for medical treatment only. Analysis performed using non- forensic procedures. Authorizing ProviderResult TypeResult StatusSamudenny SAMS BLOOD ORDERABLES Final ResultPerforming OrganizationAddressCity/State/ZIP CodePhone Number [facility] [address] [place] [address], * Comprehensive metabolic panel (12/17/2024 6:42 PM EDT)ComponentValueRef Range Test MethodAnalysis TimePerformed AtPathologist KbseocddvNBNUUI092336 - 145 mmol/L12/17/2024 7:19 PM EDPROMEDICA TOLEDO HOSPITALPOTASSIUM4.53.5 - 5.1 mmol/L 12/17/2024 7:19 PM [facility]Comment:Plasma potassium values may be up to 0.5 mmol/L lower than serum values.LIMLYVHX21974 - 107 mmol/L12/17/2024 7:19 PM EDPROMEDICA TOLEDO HOSPITALCARBON KSEUHEB0909 - 29 mmol/L12/17/2024 7:19 PM [facility]ALTHANION GAP83 - 13 mmol/L12/17/2024 7:19 PM [facility]ALTHUREA IBLACRCN644 - 21 mg/dL12/17/2024 7:19 PM [facility] CREATININE1.000.57 - 1.11 mg/dL12/17/2024 7:19 PM [facility]ALTHGLUCOSE95 74 - 100 mg/dL12/17/2024 7:19 PM [facility]ALTHCALCIUM9.68.4 - 10.2 mg/dL 12/17/2024 7:19 PM [facility]AST (SGOT)20<34 U/L12/17/2024 7:19 PM [facility]ALTHALT10<30 U/L12/17/2024 7:19 PM [facility]ALTHALKALINE GEQLAJXVEOZ5083 - 150 U/L12/17/2024 7:19 PM [facility]ALTHALBUMIN4.03.5 - 5.0 g/dL12/17/2024 7:19 PM [facility]IOHEALTHBILIRUBIN, TOTAL0.3<1.2 mg/dL 12/17/2024 7:19 PM EDTSJEAN-PIERRE CASTANEDATOTAL PROTEIN7.56.4 - 8.3 g/dL12/17/2024 7:19 PM EDLYNETTE CASTANEDAeGFR82.4>60.0 mL/min/1.73m* 7:19 PM EDT MAUDE CASTANEDAComment:Calculation based on the Chronic Kidney Disease Epidemiology Collaboration (CKD-EPI) equation refitwithout adjustment for race Specimen (Source)Anatomical Location / LateralityCollection Method / Volume Collection TimeReceived TimeBloodVenous blood specimen / UnknownVenipuncture / Bnlpwir7712/17/2024 6:42 PM EDT12/17/2024 6:49 PM EDT Narrative Authorizing ProviderResult TypeResult StatusSamudenny SAMS BLOOD ORDERABLES Final ResultPerforming OrganizationAddressCity/State/[facility] CodePhone Number MAUDE CASTANEDA [address] [place] [address], from Last 3 Months Insurance Advance Directives * Full Code (Latest Code Status on File) Date ActivatedDate InactivatedComments12/17/2024 11:27 PM12/20/2024 8:56 PM Care Teams Team MemberRelationshipSpecialtyStart DateEnd Date Liam Douglas DO [address] [place] [address] [facility]12/17/24
--- OUTSIDE RECORDS SUMMARY | 2025-03-14 04:49 | XMS_ITS | Clinical Summary ---
Author Organization [facility] Address [address] [place] [address] Care Team Providers Care Carton Gluing Machine Operator Name Role Phone Liam Douglas DO Primary Care Provider +1- [phone] Allergies Active AllergyReactionsCriticalityNoted DateCommentsCiprofloxacinOther: See Xgkamccl29/13/2024 Heart palp, hard time breathing, shaking Medications [...] as directed.Active Active Problems ProblemNoted DateDiagnosed DateBipolar hryxlgdv26/17/2025Vasovagal syncope 05/07/2024Sinus ejmavyjxjpn17/14/2025Subclinical jioizhxgvgvjkf92/14/2025 Cervicogenic gfocutbk07/14/2025orderline personality /13/2024nxiety 02/26/2016 Encounters DateTypeDepartmentCare WvbiKviwdhfduyg91/11/2025Refill Family Medicine [facility] [address] [place] [address] Liam Douglas DO Refill Lsuioec7802/09/2025Nurse Triage NURSE COVER OPERATOR [address] [place] [address] Cuco Morales, ISAI Clqkgctacwsz15/19/2025 Patient [facility] [address] [place] [address] Liam Douglas, Appointment Zyyocoe5601/08/2025 11:00 AM EDTOffice Visit [facility] [address] [place] [address] Liam Douglas, Bipolar affective disorder, remission status unspecified (HCC) (Primary Dx); Borderline personality disorder (HCC); Chlamydia; Bacterial vaginosis; Fatigue, unspecified type01/08/20259647Kggxec27/08/2025 Patient [facility] [address] [facility] [address] Liam Douglas DO Appointment Kpmsrit3712/22/2024 Patient [facility] [address] [facility] [address] Liam Douglas DO Appointment Cjoyuwu3512/20/2024Telephone [facility] [address] [place] [phone] Liam Douglas, from Last 3 Months Immunizations ImmunizationAdministration DatesNext DueHaemophilus influenzae b (Hib) vaccine, unspecified brwxkbrmiso22/28/2005,04/28/2004,03/15/2004,01/06/2004diphtheria tetanus pertussis (DTaP) vaccine, pediatric (INFANRIX)10/22/2007,04/20/2005, 04/28/2004,03/15/2004,01/06/2004hepatitis A (HepA) vaccine, adult (HAVRIX, VAQTA)10/23/2012,01/17/2012hepatitis B (HepB) vaccine, 3-dose series, age 0 yr - 19 yr (ENGERIX B-PEDS, RECOMBIVAX HB-PEDS)04/28/2004,03/15/2004,01/06/2004, 2003human papillomavirus (HPV9) vaccine, 9 valent (GARDASIL 9)02/13/2018, 02/13/2017influenza (IIV4) vaccine, age 6 mo - 64 yr, quadrivalent, PF (AFLURIA, FLUARIX, FLULAVAL, FLUZONE)02/23/2021,02/13/2018,02/13/2017influenza (LAIV4) vaccine, quadrivalent, live, intranasal (FLUMIST)02/10/2020influenza vaccine, unspecified xkniyzpdbct59/18/2016,03/23/2015,02/04/2006measles mumps rubella (MMR) vaccine (M-M-R II, PRIORIX)10/22/2007,01/19/2005meningococcal [...] (1 standard drink = 0.6 oz pure alcohol)[facility] UtilitiesAnswerDate RecordedIn the past 12 months has the electric, gas, oil, or water company threatened to shut off services in your home?No05/05/2024Social Connection and Isolation PanelAnswerDate RecordedIn a typical week, how many times do you talk on the phone with family, friends, or neighbors?Patient leivjxop46/12/2025How often do you get together with friends or relatives?Twice a week05/05/2024How often do you attend catholic or mandaen services?Patient zvzqgooo03/12/2025Do you belong to any clubs or organizations such as catholic groups, unions, fraternal or athletic groups, or school groups?No 05/05/2024How often do you attend meetings of the clubs or organizations you belong to?Patient nnkwnmgi08/12/2025re you , , , , never , or living with a partner?Never xossgzy4205/05/2024 AUDIT-CAnswerDate RecordedQ1: How often do you have a drink containing alcohol? Patient dpeprkiv95/12/2025Q2: How many drinks containing alcohol do you have on a typical day when you are drinking?Patient does not drink05/05/2024Q3: How often do you have six or more drinks on one occasion?Never05/05/2024Overall Financial Resource Strain (CARDIA)AnswerDate RecordedHow hard is it for you to pay for the very basics like food, housing, medical care, and heating?Patient /12/2025PHQ-2AnswerDate RecordedPHQ-2 dlhqm565Finspanish fork hospital [place] of Occupational Health - Occupational Stress QuestionnaireAnswerDate [...] before you got the money to buymore.Patient bwedzyco76/12/2025Within the past 12 months, the food you bought just didn't last and you didn't have money to get more.Patient uydujvtc64/12/2025PRAPARE - TransportationAnswerDate RecordedIn the past 12 months, [...] pay the mortgage or rent on time?Patient ayuczxic73/12/2025Number of Times Moved in the Last YearNot on file05/05/2024 Homeless in the Last YearNot on file05/05/2024rea Deprivation IndexAnswerDate RecordedNational Score (1-100), lower number is lower lqko353506/18/2024State Score (1-10), lower number is lower luiv99406/18/2024Data from: https://www.neighborhoodatlas.medicine.[facility].edu/. Last address used for [address]06/18/2024CommentsNoSex and Gender InformationValueDate RecordedSex Assigned at BirthNot on fileLegal SexFemale 03/27/2024 1:47 PM ESTGender IdentityNot on fileSexual OrientationNot on file Last Filed Vital Signs Vital SignReadingTime TakenCommentsBlood Lqvawknl807/7909 10:51 AM EDT Zewms740101/08/2025 10:51 AM UAEElqawpxuecq19.7 ??C (98.1 ??F)01/08/2025 10:51 AM EDTRespiratory Rate--Oxygen Norosyetac93%01/08/2025 10:51 AM EDTInhaled Oxygen Concentration--Unvoyw64.9 kg (160 lb 11.5 oz)01/08/2025 10:51 AM RQHEuylcv123.3 cm (5' 9.02 )08/29/2024 11:26 AM EDTBody Mass Index23.7205/11/2024 11:26 AM EDT Plan of Treatment DateTypeDepartmentCare Team (Latest Contact Info)Slcddikslag50/25/2025 9:00 AM [facility] [address] [place] [address] Liam Douglas DO [address] [place] [address] panic attacks or whether it???s a medical concernHealth MaintenanceDue DateLast DoneCommentsPeds To Adult Transition Initial Sldftfyohf96/28/2016Peds To Adult Transition Annual Riwlswvexr88/28/2018Depression Gbyqizedq34/28/2022HIV Ajopjoxzw01/28/2022Hepatitis C Znjhtxnek31/28/2022ovid-19 Vaccine ( season)2024Influenza Vaccine (#1)/05/2020, 02/10/2020, 02/13/2018, Additional history existsAnnual PCP Team Chronic Disease Visit 609/hlamydia Screening (18-24)/12/2024, 07/08/2024 GC (Gonorrhea) Screening (18-)/12/2024, 07/08/2024ervical Cancer Dffanihvw39/06/2024DTaP,Tdap,Td Vaccine (8 - Td or Tdap)11/29/2033 11/30/2023, 12/02/2013, 10/22/2007, Additional history existsHepatitis B Vaccine Mfacdelex88/05/2005, 03/15/2004, 01/06/2004, Additional history existsHPV OnbomabGowlztnaf49/23/2018, 02/13/2017Meningococcal B VaccineCompleted 03/16/2020, 02/10/2020 Procedures Procedure NamePriorityDate/TimeAssociated DiagnosisCommentsFERRITIN BLDRoutine 01/30/2025 11:39 AM EDT Fatigue, unspecified type IRON + SBNTTzbwkjy83/09/2025 11:39 AM EDT Fatigue, unspecified type VITAMIN B12 GBSSRDztyhmj47/09/2025 11:39 AM EDT Fatigue, unspecified type TSH PFNMokiypk52/09/2025 11:39 AM EDT Fatigue, unspecified type TARA/TRICHOMONAS VUUCYsiqzlt81/09/2025 11:39 AM EDT Chlamydia Bacterial vaginosis GONORRHEA/CHLAMYDIA ALYDIttxuvg12/09/2025 11:39 AM EDT Chlamydia Bacterial vaginosis from Last 3 Months Results * TARA/TRICHOMONAS NAAT (01/30/2025 11:39 AM EDT)ComponentValueRef RangeTest MethodAnalysis TimePerformed AtPathologist SignatureCandida species group RNA Not detectedNot detected [facility] 01/30/2025 8:01 PM EDPREMIER [facility]ALTH [facility] LABComment:The Tara species group target includes C. albicans, C. tropicalis, C. parapsilosis, and C. dubliniensis.Tara glabrata RNANot detectedNot detected [facility] 01/30/2025 8:01 PM EDPREMI[facility] LABTrichomonas vaginalis RNA Not detectedNot detected [facility] 01/30/2025 8:01 PM [facility] LABSpecimen (Source) Anatomical Location / LateralityCollection Method / VolumeCollection Time Received TimeSwabVAGINAL STRUCTURE / UnknownNon Blood / Fymmipc6201/30/2025 11:39 AM EDT1 12:06 PM EDT Narrative Authorizing ProviderResult TypeResult StatusTrevor Aurora Douglas DOMICROBIOLOGY Final ResultPerforming OrganizationAddressCity/State/ZIP CodePhone Number [facility] [address] [address], * GONORRHEA/CHLAMYDIA NAAT (01/30/2025 11:39 AM EDT)ComponentValueRef RangeTest MethodAnalysis TimePerformed AtPathologist SignatureNeisseria gonorrhoeae RNA Not detectedNot detected [facility] 01/30/2025 8:41 PM EDPREMI[facility] LABChlamydia trachomatis RNA Not detectedNot detected [facility] 01/30/2025 8:41 PM EDPRE[facility] LABSpecimen (Source) Anatomical Location / LateralityCollection Method / VolumeCollection Time Received TimeSwabVAGINAL STRUCTURE / UnknownNon Blood / Jxqxjwn3401/30/2025 11:39 AM EDT1 12:06 PM EDT Narrative [facility] - 01/30/2025 8:41 PM EDT This FDA-approved assay has been modified to accept rectal swabs self-collected in a healthcare setting. For self-collected rectal swabs, the test was developed and its performance characteristics determined by the [facility] [place] ([facility]). It has not been cleared or approved by the FDA. [facility] is regulated under CLIA as qualified to perform high-complexity testing. This test is used for clinical purposes. It should not be regarded as investigational or for research. Authorizing ProviderResult TypeResult StatusTrevor Aurora Douglas DOMICROBIOLOGY Final ResultPerforming OrganizationAddressCity/State/ZIP CodePhone Number [facility] [address] [place] [address], * VITAMIN B12 (01/30/2025 11:39 AM EDT)ComponentValueRef RangeTest Method Analysis TimePerformed AtPathologist SignatureVitamin [id number] - 1,245 pg/mL 01/30/2025 9:35 PM EDPREMIER HEALTH [facility] LABSpecimen (Source) Anatomical Location / LateralityCollection Method / VolumeCollection Time Received TimeBloodBLOOD SPECIMEN / UnknownVenipuncture / Hjlyjxq5501/30/2025 11:39 AM EDT1 12:06 PM EDT Narrative Authorizing ProviderResult TypeResult StatusTrevor Aurora Douglas DOLABORATORYFinal ResultPerforming OrganizationAddressCity/State/ZIP CodePhone Number [facility] [address] [place] [phone], * THYROID STIMULATING HORMONE (01/30/2025 11:39 AM EDT)ComponentValueRef Range Test MethodAnalysis TimePerformed AtPathologist SignatureTSH3.6000.270 - 4.200 mIU/L1 9:35 PM EDPREMIER HEALTH [facility] LABComment: If the patient is , TSH reference range varies by gestational period: First Trimester (weeks 9-12): 0.180-2.990 mIU/L Second Trimester: 0.110-3.980 mIU/L Third Trimester: 0.480-4.710 mIU/L Malcolm Molina et al. A Practical Approach for the Verifications and Determination of Site- and Trimester-Specific Reference Intervals for Thyroid Function tests in . Thyroid, 2019:29:3:412-420.Rubio Jade et al. 2017 Guidelines of the [place] Thyroid Association for the Diagnosis and Management of Thyroid Disease during and the . Thyroid, 2017:27:3:315-389. Specimen (Source)Anatomical Location / LateralityCollection Method / Volume Collection TimeReceived TimeBloodBLOOD SPECIMEN / UnknownVenipuncture / Unknown 01/30/2025 11:39 AM EDT1 12:06 PM EDT Narrative Authorizing ProviderResult TypeResult StatusTrevor Aurora Douglas DOLABORATORYFinal ResultPerforming OrganizationAddressCity/State/ZIP CodePhone Number [facility] [address] [place] [address], * (ABNORMAL) IRON AND TIBC (01/30/2025 11:39 AM EDT)ComponentValueRef RangeTest MethodAnalysis TimePerformed AtPathologist IrbglvpzsGghy2108 - 186 ug/dL 01/30/2025 9:15 PM EDTCKEENAN [facility] YIYHGKZ082(H)232 - 386 ug/dL01/30/2025 9:15 PM EDPREMIER [facility]ALTH [facility] LABTransferrin Plfxnimgek15.015.0 - 57.0 %01/30/2025 9:15 PM [facility] LABSpecimen (Source)Anatomical Location / LateralityCollection Method / Volume Collection TimeReceived TimeBloodBLOOD SPECIMEN / UnknownVenipuncture / Twhlpmm3701/30/2025 11:39 AM EDT1 12:06 PM EDT Narrative Authorizing ProviderResult TypeResult StatusTrevor Aurora Douglas DOLABORATORYFinal ResultPerforming OrganizationAddressCity/State/ZIP CodePhone Number [facility] [address] [place] [phone], * FERRITIN (01/30/2025 11:39 AM EDT)ComponentValueRef RangeTest MethodAnalysis TimePerformed AtPathologist GbnomterqVnexxcut80.914.7 - 205.1 ng/mL01/30/2025 9:35 PM EDTCKEENAN PRIVATE HOSPITAL LABSpecimen (Source)Anatomical Location / LateralityCollection Method / VolumeCollection TimeReceived Time BloodBLOOD SPECIMEN / UnknownVenipuncture / Uopxuyh7801/30/2025 11:39 AM EDT 01/30/2025 12:06 PM EDT Narrative Authorizing ProviderResult TypeResult StatusTrevohenrique Douglas DOLABORATORYFinal ResultPerforming OrganizationAddressCity/State/ZIP CodePhone Number [facility] [address] [place] [phone], from Last 3 Months Insurance Care Teams Team MemberRelationshipSpecialtyStart DateEnd Date Liam Douglas DO [address] [place] [address] [facility] Emhonlyp60/13/24
--- OUTSIDE RECORDS SUMMARY | 2025-03-14 04:49 | XMS_ITS | Encounter Summary ---
Author Organization [facility] Address [address] [place], [place] [address] Care Team Providers Care Director Marketing Analytics Name Role Phone Liam Douglas DO Primary Care Provider +1- [phone] Source Comments In the event this information is protected by the Federal Confidentiality of Alcohol and Drug AbusePatient Records regulations: The Federal rules restrict any use of the information to criminally investigate or prosecute any alcohol or drug abuse patient.[facility] Reason for Visit * ReasonCommentsRefill Request Encounter Details DateTypeDepartmentCare Team (Latest Contact Info)Hnpxbqtyswp10/11/2025Refill [place] [phone] Liam Douglas DO [address] [place] [address] Refill Request Social History Tobacco UseTypesPacks/DayYears UsedDateSmoking Tobacco: FormerCigarettes Smokeless Tobacco: NeverAlcohol UseStandard Drinks/WeekCommentsYes0 (1 standard drink = 0.6 oz pure alcohol)[facility] UtilitiesAnswerDate RecordedIn the past 12 months has the [employer], gas, oil, or water [employer] threatened to shut off services in your home?No05/05/2024Social Connection and Isolation PanelAnswer Date RecordedIn a typical week, how many times do you talk on the phone with family, friends, or neighbors?Patient hubgtnuw01/12/2025How often do you get together with friends or relatives?Twice a week05/05/2024How often do you attend islam or rastafari services?Patient wfomgydd26/12/2025Do you belong to any clubs or organizations such as islam groups, unions, fraternal or athletic el ups, or school groups?No05/05/2024How often do you attend meetings of the clubs or organizations you belong to?Patient nwpopxwo63/12/2025re you , , , , never , or living with a partner?Never mtbasib8005/05/2024UDIT-CAnswerDate RecordedQ1: How often do you have a drink containing alcohol?Patient pxwtybhv96/12/2025Q2: How many drinks containing alcohol do you have on a typical day when you are drinking?Patient does not drink05/05/2024Q3: How often do you have six or more drinks on one occasion? Never05/05/2024Overall Financial Resource Strain (CARDIA)AnswerDate RecordedHow hard is it for you to pay for the very basics like food, housing, medical care, and heating?Patient amzlzpuf74/12/2025PHQ-2AnswerDate RecordedPHQ-2 score2 06/11/2024[facility] [place] of Occupational Health - Occupational Stress QuestionnaireAnswerDate [...] before you got the money to buymore.Patient kjjygint18/12/2025Within the past 12 months, the food you bought just didn't last and you didn't have money to get more. Patient nybrgmdr51/12/2025PRAPARE - TransportationAnswerDate RecordedIn the past 12 months, [...] pay the mortgage or rent on time?Patient zncqpbky76/12/2025Number of Times Moved in the Last YearNot on file05/05/2024Homeless in the Last YearNot on file05/05/2024rea Deprivation IndexAnswerDate RecordedNational Score (1-100), lower number is lower risk76 06/18/2024State Score (1-10), lower number is lower lswz92806/18/2024Data from: https://www.neighborhoodatlas.[facility].edu/. Last address used for [address]06/18/2024CommentsNoSex and Gender InformationValueDate RecordedSex [...] Plan of Treatment DateTypeDepartmentCare Team (Latest Contact Info)Uxihpuxedsc71/25/2025 9:00 AM [facility] [address] [place], [place] [phone] [place] [address] [place] [phone] panic attacks or whether it???s a medical concerndocumented as of this encounter Visit Diagnoses Diagnosis Cervicogenic headache Headache documented in this encounter Care Teams Team MemberRelationshipSpecialtyStart DateEnd Date Liam Douglas DO [address] [place] [address] PCP - GeneralFamily Tblpxqjg34/13/24documented as of this encounter
--- OUTSIDE RECORDS SUMMARY | 2025-03-14 04:49 | XMS_ITS | Encounter Summary ---
Author Organization [facility] tem Address [facility] [id number] [address] [place] [address] Care Team Providers Care Malted Milk Masher Name Role Phone Ref Prov, Not In System Primary Care Provider Un available Encounter Details DateTypeDepartmentCare Team (Latest Contact Info)Xwnupwvstyg73/17/2025Travel Social History Tobacco UseTypesPacks/DayYears UsedDateSmoking Tobacco: FormerCigarettes0.51.1 Started: 01/2024Smokeless Tobacco: NeverAlcohol UseStandard Drinks/WeekComments Yes0 (1 standard drink = 0.6 oz pure alcohol)sociallyPHQ-2AnswerDate Recorded Total Siqvh9792/23/2018ChildcareAnswerDate EuwnyrzbGgtvidiviWjqgsek39/10/2019 EmploymentAnswerDate PmpzsrgyPesbtqwzksHabtrnt46/10/2019Hunger ScreeningAnswer Date RecordedWithin the past 12 months we worried whether our food would run out before we got money to buy more.Never True03/10/2025Within the past 12 months the food we bought just didn't last and we didn't have money to get more.Never True03/10/2025Purpose - LifeAnswerDate RecordedPurpose and direction in life Ckjcojz70/10/2021CommentsNoSex and Gender InformationValueDate Recorded Sex Assigned at BirthNot on fileLegal ZcwXkfibp38/04/2015 3:17 PM EDTGender IdentityNot on fileSexual OrientationNot on filedocumented as of this encounter Plan of Treatment Not on file documented as of this encounter Visit Diagnoses Not on filedocumented in this encounter Additional Health Concerns InfectionOnset DateLast IndicatedResolved TimeRespiratory Rule-Out03/10/2025 7:45 PM ESTAssessmentNoted TimePHQ-9 Depression Total Score: 111 4:00 PM EDTdocumented as of this encounter Care Teams Team MemberRelationshipSpecialtyStart DateEnd Date Ref Prov, [place] [address] PCP - General06/21/24documented as of this encounter
--- OUTSIDE RECORDS SUMMARY | 2025-03-14 04:49 | XMS_ITS | Clinical Summary ---
Author Organization [facility] Address [address] [place] [address] Care Team Providers Care Ion Implant Machine Operator Name Role Phone Liam Douglas MD Primary Care Provider [phone] Tania Youngblood Unavailable Allergies Active AllergyReactionsCriticalityNoted DateCommentsCiprofloxacinPalpitationsLow [...] InformationValueDate RecordedSex Assigned at BirthNot on fileLegal IknNuripr93/30/2024 1:49 PM ESTGender IdentityNot on fileSexual OrientationNot on file Last Filed Vital Signs Vital SignReadingTime TakenCommentsBlood Pilrayoc791/8204 9:21 AM EDT Ixyyg3804 9:21 AM EDTTemperature--Respiratory Zywf9872 9:21 AM EDTOxygen Kwmrczpubf30%08/12/2024 9:21 AM EDTInhaled Oxygen Concentration-- Tdnuqj17.4 kg (153 lb)08/12/2024 9:21 AM CITTatigs306.3 cm (5' 9 )08/12/2024 9:21 AM EDTBody Mass Index22.59008/12/2024 9:21 AM EDT Plan of Treatment Not on file Insurance Care Teams Team MemberRelationshipSpecialtyStart [place] [address] [place] [address] PCP - GeneralFamily Kfbtsdqn86/30/24 [place] [address] [place] [address] Physician AssistantNeurology08/12/24
--- OUTSIDE RECORDS SUMMARY | 2025-03-14 04:49 | XMS_ITS | Clinical Summary ---
Author Organization [facility] Address [address] [place] [address] Phone Care Team Providers Care Medical I D Sales Name Role Phone Unavailable Primary Care Provider Unavailabl e Allergies Active AllergyReactionsCriticalityNoted DateCommentsCiprofloxacinOther, QndbsraxhbdlWkz51/13/2024 Heart palp, hard time breathing, shaking Other [...] Problems No known active problems Encounters DateTypeDepartmentCare OhenMkjfrvtxkfo78/15/2025 5:55 PM ESTOffice Visit [facility] [address] [facility] [address] [place] [address] Disha Curiel PA-C Viral URI (Primary Dx); Suspected COVID-19 virus ouzjtween57/04/2025 3:20 PM EDTOffice Visit [facility] [address] [facility] [address] [place] [address] 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?F)03/08/2025 5:59 PM EST Respiratory Vexm252005/08/2024 5:59 PM ESTOxygen Zzprbrayzh27%03/08/2025 5:59 PM ESTInhaled Oxygen Concentration--Weight--Height--Body Mass Index-- Plan of Treatment Health MaintenanceDue DateLast DoneCommentsHIV Ubwrtfrle83/28/2004Hearing Screening (#1)2007Pneumococcal Vaccine: Pediatrics and At-Risk Adult Patients (1 of 1 - PPSV23, PCV20, or PCV21), 07/16/2004, 03/15/2004, Additional history existsHepatitis C Lavrywhfd53/28/2022HPV/Cotest 10/19/2024Influenza Vaccine (#1)511/05/2020, 02/10/2020, 02/13/2018, Additional history existsCOVID-19 Vaccine (1 - season)2024early Adult Ngebgvxt077/06/2024, 11/30/2023, 02/23/2021, Additional history existsTSH Level610/ervical Cancer Ilsjgzvjl40/03/2028Pap Smear Lipid Panel, 2DTaP/Tdap/Td Vaccines (8 - Td or Tdap)/11/2023, 12/02/2013, 10/22/2007, Additional history existsZoster Vaccines (1 of 2), 10/21/2004Hepatitis B NvllshphOeqpahtwg01/05/2005, 04/28/2004, 03/15/2004, Additional history existsHIB QpkpyjtzAljfkatxo25/28/2005, 04/28/2004, 03/15/2004, Additional history existsIPV ZtyhzpvzNdhoicvnn02/30/2008, 04/28/2004, 04/28/2004, Additional history existsMMR VaccinesCompleted 10/22/2007, 01/19/2005Hepatitis A TmceopsnScwtdtvko55/02/2013, 01/17/2012HPV NzvsiiqgUxqivlrub66/23/2018, 02/13/2017Meningococcal RjaqcwaUsckjxppp28/19/2020, 03/23/2015Meningococcal B WvlewdkAkhiurclb02/23/2020, 02/10/2020Chlamydia ScreeningDiscontinuedRotavirus VaccinesAged OutNo longer eligible based on patient's age to complete this topic Procedures Procedure NamePriorityDate/TimeAssociated DiagnosisCommentsSPOTFIRE R/ST PANEL MINI W/WDRHYAwgucue65/15/2025 6:21 PM EST Suspected COVID-19 virus infection LIPID HWZLFQlnasfq55/27/2022 7:35 AM EDT from Last 3 Months or Most Recently Relevant to Health Maintenance Results * POCT SPOTFIRE R/ST Panel Mini w/COVID ([facility]) manually resulted (03/08/2025 6:21 PM EST)ComponentValueRef RangeTest MethodAnalysis Time Performed AtPathologist SignaturePOC Sars-Cov-2 PCRNegativeNegativePOC Respiratory Syncytial Virus PCRNegativeNegativePOC Influenza A Virus PCR NegativeNegativePOC Influenza B Virus PCRNegativeNegativePOC Human Rhinovirus PCRNegativeNegativeSpecimen (Source)Anatomical Location / LateralityCollection Method / VolumeCollection TimeReceived HfquJrxs48/15/2025 6:21 PM EST Narrative Authorizing ProviderResult TypeResult StatusArcarolina KERNOINT OF CARE TEST ENTER/EDIT ORDERABLESFinal Result * Lipid Panel (12/18/2021 7:35 AM EDT)ComponentValueRef RangeTest MethodAnalysis TimePerformed AtPathologist JzvfzsjfqNjtkddwakyy1510 - 199 mg/dLOUR LADY OF L[facility] LABComment: . ?AGE ?DESIRABLE ?? [...] be performed immediately prior to Metamizole dosing. HDL50.4mg/dLOUR LADY OF LOURDES [facility] LABComment: . ?AGE ?VERY LOW ?? LOW ? NORMAL ?HIGH ?? 0-19 Y < 35 < 40 40-45 ---- 20-24 Y ---- < 40 >45 ---- >24 Y ---- < 40 40-60 >60 . Cholesterol/HDL Ratio2.3GCALVARY HOSPITAL LABComment: REF VALUES DESIRABLE < 3.4 HIGH RISK > 5.0 EQM320 - 109 mg/dLOUR LADY OF LOURDES [facility] LABComment: . ? NEAR ?BORD ?AGE ?DESIRABLE ??OPTIMAL ?HIGH ? HIGH ? VERY HIGH 0-19 Y 0 - 109 --- 110-129 >/= 130 ---- 20-24 Y 0 - 119 --- 120-159 >/= 160 ---- >24 Y 0 - 99 100-129 130-159 160-189 >/=190 . VLDL60 - 40 mg/dLOUR [facility]AD[facility] RMQSwlgpupknitxe453 - 149 mg/dLOUR LAD[facility] L[facility] LABComment: . ?AGE ?DESIRABLE ?? [...] immediately prior to Metamizole dosing. Non HDL Sxwgswqfqjf226 - 119 mg/dLOUR LADY OF LOURDES [facility] LABComment: ?AGE ?DESIRABLE ?? BORDERLINE [...] MDLAB BLOOD ORDERABLESFinal ResultPerforming OrganizationAddressCity/State/ZIP CodePhone Number [facility] [address] [place] [address] from Last 3 Months or Most Recently Relevant to Health Maintenance Insurance
[2025-03-14 05:10] LABS: Hematocrit 38.6 % (36.0-48.0); Hemoglobin 13.4 g/dL (12.0-16.0); Immature Granulocytes Abs Auto 0.03 10^3/uL (0.00-0.03); Immature Granulocytes Pct Auto 0.4 % (0.0-0.5); Lymphocytes Absolute Auto 2.4 10^3/uL (1.2-3.8); Mean Corpuscular HGB Conc 34.7 g/dL (29.9-35.2); Mean Corpuscular Hemoglobin 30.2 pg (26.7-34.0); Mean Corpuscular Volume 86.9 fL (81.0-99.0); Platelet Count 289 10^3/uL (150-450); Red Blood Count 4.44 10^6/uL (4.20-5.40); White Blood Count 7.5 10^3/uL (4.0-11.0)
--- NOTE | 2025-03-14 05:13 | ED_ITS ---
HPI HPI - General Adult General Chief complaint: Headache Stated complaint: LOWER EXTREMITY PAIN, NUMBNESS Time Seen by Provider: 03/14/25 04:15 Source: patient Mode of arrival: walk-in Limitations: no limitations History of Present Illness HPI narrative: This 19-year-old female with a history of anxiety and panic disorder presents for evaluation of multiple complaints. She states she feels like there is a band wrapped around her head. She is told this can when you are on different SSRI medications. She also states that on her right side she has right sided back pain and numbness in her anterior thigh and in the anterior aspect of her right lower leg. She is not on any control. She vapes but does not smoke cigarettes. She denies any nausea or vomiting. She states she has been having the symptoms intermittently for the past several days but tonight they became more severe. She cannot sleep due to the symptoms. She took a Tylenol which did not help her. She states she also took her usual psychiatric medications including hydroxyzine which did not relieve her symptoms. She denies any injury. She has no redness or swelling in these areas. She states she drove herself to the hospital driving approximately 25 mph with the hazard lights on because her right leg was too weak to push down on the gas pedal. She is ambulatory with a steady gait. She is able to go up on both toes without difficulty. The patient states that due to her severe anxiety and panic attacks she had to leave school for the past year due to life altering panic attacks. She states that her symptoms are usually worse at night. She also states that she is supposed to be going back to school after . 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 Related Data Home Medications ?Medication ?Instructions ?Recorded ?Confirmed hydroxyzine PO DAILY 04/11/24 levothyroxine 25 mcg tablet 25 mcg PO DAILY 11/09/24 1 05/08/24 lamotrigine 25 mg tablet 25 mg PO DAILY 02/09/2502/22 albuterol sulfate 90 mcg/actuation 2 puff inhalation Q 4H PRN 03/08/25 03/08/25 aerosol inhaler shortness of breath or wheez ing aripiprazole 2 mg tablet 2 mg PO HS 03/08/25 03/08/25 Allergies Allergy/AdvReac Type Severity Reaction Status Date / Time ciprofloxacin (From Cipro) Allergy Unknown Rash Verified 03/14/25 04:10 Opioid HPI Opioid Management Most Recent Opioid Data: Last Pain Scale 7 Today, 04:14 Ur Phencyclidine Scrn, (NEGATIVE) Negative , 21:22 Review of Systems ROS Status of ROS 10 or more systems reviewed and unremark able except as noted in history and below PFSH PFSH Social History Little interest or pleasure in doing things: not at all Feeling down, depressed, or hopeless: not at all Exam Narrative Exam Narrative: Vital signs and Nursing Notes reviewed: Patient is afebrile with normal pulse, normal blood pressure, she is not hypoxic with pulse ox of 99% on room air General: Awake, alert, oriented, no acute distress, lying comfortably on the stretcher-anxious, focused on her somatic complaints but distractable HEENT: Normocephalic atraumatic, mucous membranes are moist and pink, eyes are clear, normal conjunctiva, vision is grossly intact, posterior pharynx is normal in appearance. Chest: Lungs are clear to auscultation with good air entry, there is no wheezing rhonchi or rales appreciated no accessory muscle use, patient is speaking in complete sentences-no chest wall tenderness to palpation CVS: Regular rate and rhythm S1-S2, no murmurs rubs or gallops, pulses are brisk and equal bilaterally ABD: Soft, nondistended, nontender, no rebound guarding or rigidity, bowel sounds are normal, no pulsatile masses appreciated Extremities: Moving all extremities, no lower extremity tenderness or swelling noted, negative Homans' sign, pulses are brisk and equal bilaterally, there is some fasciculations of the quadratus femoris muscle when I squeezed it, she is able to go up on her toes, there is no calf swelling or tenderness. 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 strength is intact, positive rapid alternating hand movements Constitutional Vital Signs, click to edit/add: Last Vital Signs Temp 98.4 F 03/14/25 04:10 Pulse 68 03/14/25 04:10 Resp 19 03/14/25 04:10 BP 137/90 03/14/25 04:10 Pulse Ox 99 03/14/25 04:10 O2 Del Method Room Air 03/14/25 04:10 Course Vital Signs Vital signs: Vital Signs Temperature 98.4 F 03/14/25 04:10 Pulse Rate 68 03/14/25 04:10 Respiratory Rate 19 03/14/25 04:10 Blood Pressure 137/90 03/14/25 04:10 Pulse Oximetry 99 03/14/25 04:10 Oxygen Delivery Method Room Air 03/14/25 04:10 Temperature 98.4 F 03/14/25 04:10 Pulse Rate 68 03/14/25 04:10 Respiratory Rate 19 03/14/25 04:10 Blood Pressure 137/90 03/14/25 04:10 Pulse Oximetry 99 03/14/25 04:10 Oxygen Delivery Method Room Air 03/14/25 04:10 Medical Decision Making MDM Narrative Medical decision making narrative: -year-old female with a history of anxiety presents for evaluation of multiple somatic complaints including a buzzing band around her head, right flank pain, dysesthesia/paresthesia in her right anterior leg and anterior lower leg. She states she has had the symptoms in the past and they usually are worse at night. Her physical exam was benign. She does have healed cuts on her leg from self- inflicted cutting. She is currently in therapy and also taking medications. Routine labs are ordered to rule out a metabolic reason for her symptoms. Her CBC with differential, comprehensive metabolic profile and D-dimer are all normal. CRP is also normal. She was medicated with a dose of 0.5 mg of Ativan. The patient stated to me that she was driving here with her hazard lights on driving 25 mph because she was unable to press down the gas pedal with her right foot. On reevaluation after the Ativan she has full strength and sensation in her lower extremity. I explained to her that she is on multiple medications that can cause different neurologic symptoms and her dysesthesia may be related to either the olanzapine or lamictal that she is on. She has only been on the olanzapine for a couple of weeks. She states appointment with her family physician in early March and will discuss her symptoms and her medications with him. She is otherwise stable for discharge. Her boyfriend came to give her a ride home. She does not any time verbalize any suicidal or homicidal ideation and her anxiety or health seems to be consistent with prior visits. Lab Data Labs: Lab Results 03/14/25 Range/Units 05:00 WBC 7.5 (4.0-11.0) 10^3/uL RBC 4.44 (4.20-5.40) 10^6/uL Hgb 13.4 (12.0-16.0) g/dL Hct 38.6 (36.0-48.0) % MCV 86.9 (81.0-99.0) fL MCH 30.2 (26.7-34.0) pg MCHC 34.7 (29.9-35.2) g/dL RDW 11.1 (11.0-15.0) % Plt Count 289 (150-450) 10^3/uL MPV 9.4 L (9.5-13.5) fL Neut % (Auto) 53.5 (43.0-75.0) % Lymph % (Auto) 32.3 (20.5-60.0) % [place] % (Auto) 6.4 (1.7-12.0) % Eos % (Auto) 6.1 (0.9-7.0) % Baso % (Auto) 1.3 (0.2-2.0) % Neut # (Auto) 4.0 (1.4-6.5) 10^3/uL Lymph # (Auto) 2.4 (1.2-3.8) 10^3/uL [place] # (Auto) 0.5 (0.3-0.8) 10^3/uL Eos # (Auto) 0.5 (0.0-0.7) 10^3/uL Baso # (Auto) 0.1 (0.0-0.1) 10^3/uL Abs Immat Gran (auto) 0.03 (0.00-0.03) 10^3/uL Imm/Tot Granulo (auto) 0.4 (0.0-0.5) % D-Dimer 0.28 (<=0.59) mg/L FEU Sodium 141 (136-145) mmol/L Potassium 3.6 (3.5-5.1) mmol/L Chloride 105 (98-107) mmol/L Carbon Dioxide 28.2 (21.0-32.0) mmol/L Anion Gap 11.4 BUN 11.0 (7.0-18.0) mg/dL Creatinine 0.96 (0.55-1.02) mg/dL Est GFR ( Amer) >60 (>=60 mL/min/1.73m^2) Est GFR (Non-Af Amer) >60 (>=60 mL/min/1.73m^2) BUN/Creatinine Ratio 11.5 Glucose 98 (74-106) mg/dL Calcium 9.1 (8.5-10.1) mg/dL Total Bilirubin 0.3 (0.2-1.0) mg/dL AST 12 L (15-37) U/L ALT 19 (14-59) U/L Alkaline Phosphatase 74 (46-116) U/L C-Reactive Protein <0.50 (<=0.50) mg/dL Total Protein 7.1 (6.4-8.2) g/dL Albumin 4.3 (3.4-5.0) g/dL Globulin 2.8 g/dL Albumin/Globulin Ratio 1.5 Discharge Plan Discharge Chief Complaint: Headache Clinical Impression: Dysesthesia Patient Disposition: Home, Self-Care Time of Disposition Decision: 06:22 Condition: Good Prescriptions / Home Meds: No Action hydroxyzine 25 mg capsule PO DAILY levothyroxine 25 mcg tablet 25 mcg PO DAILY lamotrigine 25 mg tablet 25 mg PO DAILY Rx Instructions: 25 mg orally 1 in am albuterol sulfate 90 mcg/actuation HFA aerosol inhaler 2 puff INHALATION Q4H PRN (Reason: shortness of breath or wheezing) aripiprazole 2 mg tablet 2 mg PO HS Print Language: Telugu Instructions: Paresthesia (ED) Referrals: ANTIONETTE BENITEZ DO [Primary Care Provider] - 1 week Discharge Date/Time: 03/14/25 06:29
[2025-03-14 05:23] LABS: Alanine Aminotransferase 19 U/L (14-59); Albumin Globulin Ratio 1.5; Albumin Level 4.3 g/dL (3.4-5.0); Alkaline Phosphatase 74 U/L (46-116); Anion Gap 11.4; Aspartate Amino Transferase 12 U/L (15-37); Blood Urea Nitrogen 11.0 mg/dL (7.0-18.0); Calcium 9.1 mg/dL (8.5-10.1); Carbon Dioxide 28.2 mmol/L (21.0-32.0); Chloride 105 mmol/L (98-107); Estimated GFR (African America >60 (>=60 mL/min/1.73m^2); Estimated GFR (Non-African Ame >60 (>=60 mL/min/1.73m^2); Globulin 2.8 g/dL; Glucose 98 mg/dL (74-106); Potassium 3.6 mmol/L (3.5-5.1); Sodium 141 mmol/L (136-145); Total Protein 7.1 g/dL (6.4-8.2)
[2025-03-14] MEDS: LORAZEPAM 0.5 MG TABLET PO (05:53)
== END 2025-03-14 06:29 | disposition home or self-care (01) ==
PROVIDERS: Emergency Provider Emergency Medicine; PCP Family Medicine
DX: R20.8 Other disturbances of skin sensation (principal); F41.9 Anxiety disorder, unspecified; Z91.52 Personal history of nonsuicidal self-harm
CPT/HCPCS: 36415; 80053; 85025; 85378; 86140; 99283

== ENCOUNTER 2025-03-27 14:33 | Emergency (ER) | payer OTHER, SELFPAY ==
[2025-03-27 14:35] VITALS: BP 126/83; PULSE 80; TEMP 37.6; O2SAT 100; BMI 25.1
--- NOTE | 2025-03-27 15:08 | ED_ITS ---
HPI HPI - General Adult General Chief complaint: Urogenital-Female Stated complaint: VAGINAL DISCOMFORT ABDOMINAL PAIN Time Seen by Provider: 03/27/25 14:43 Source: patient Mode of arrival: walk-in History of Present Illness HPI narrative: Patient is a 19-year-old female who presents with persistent vaginal pain/burning for about 4 weeks now. She states in November she was treated for chlamydia with antibiotics and the symptoms somewhat improved and then returned about a month ago. She did go to the [facility] urgent care at this time and had vaginal swabs and a UA completed that were negative. She denies any fever or chills at home. She has been having some right lower pelvic pain. Her last menstrual period started around March 06. Her periods are irregular. She has been having some yellowish/white vaginal discharge that smells fishy. She denies any abdominal or pelvic surgeries. Related Data Home Medications ?Medication ?Instructions ?Recorded ?Confirmed hydroxyzine PO DAILY 04/11/24 levothyroxine 25 mcg tablet 25 mcg PO DAILY 11/09/24 1 05/08/24 lamotrigine 25 mg tablet 25 mg PO DAILY 02/09/2502/22 albuterol sulfate 90 mcg/actuation 2 puff inhalation Q 4H PRN 03/08/25 03/08/25 aerosol inhaler shortness of breath or wheez ing aripiprazole 2 mg tablet 2 mg PO HS 03/08/25 03/08/25 Previous Rx's ?Medication ?Instructions ?Recorded nitrofurantoin 100 mg PO BID 5 days #10 cap s 03/27/25 monohydrate/macrocrystals 100 mg capsule (Macrobid) Allergies Allergy/AdvReac Type Severity Reaction Status Date / Time ciprofloxacin (From Cipro) Allergy Unknown Rash Verified 03/14/25 04:10 Opioid HPI Opioid Management Most Recent Opioid Data: Last Pain Scale 7 03/14/25, 04:14 Ur Phencyclidine Scrn, (NEGATIVE) Negative , 21:22 Review of Systems ROS Status of ROS 10 or more systems reviewed and unremark able except as noted in history and below PFSH PFSH Social History Little interest or pleasure in doing things: not at all Feeling down, depressed, or hopeless: not at all Exam Narrative Exam Narrative: General: No distress, age-appropriate Skin: Warm, dry, no pallor. No rash. Head: Normocephalic, atraumatic. Neck: Supple, non-tender. Eye: Pupils are equal, round and EOMI. No scleral icterus. Ears, Nose, Mouth, and Throat: No nasal mucosal hypertrophy. Oral mucosa is moist, no posterior oropharynx erythema, uvula is mid-line Cardiovascular: Regular Rate and Rhythm without murmur, gallop or rub. Respiratory: No accessory muscle use or respiratory distress. Musculoskeletal: Full ROM of all extremities, no calf or popliteal tenderness GI: Abdomen is soft, non-distended, RLQ/ pelvic tenderness with palpation. No masses appreciated. No rebound, guarding, or rigidity noted. Neurological: A&O x4. No cranial nerve dysfunction observed. No truncal ataxia. Moves all extremities. Sensation intact. Psychiatric: Cooperative and interactive. Normal mood and affect. Constitutional Vital Signs, click to edit/add: Last Vital Signs Temp 99.0 F 03/27/25 18:08 Pulse 59 L 03/27/25 20:08 Resp 12 03/27/25 20:08 BP 115/76 03/27/25 20:08 Pulse Ox 100 03/27/25 20:08 O2 Del Method Room Air 03/27/25 20:08 External Female Exam: normal appearance of the urethra Speculum exam - cervix: nulliparous and other (Mild thin white discharge noted in vagina and cervix) Course Vital Signs Vital signs: Vital Signs Temperature 99.7 F 03/27/25 14:35 Pulse Rate 80 03/27/25 14:35 Respiratory Rate 18 03/27/25 14:35 Blood Pressure 126/83 03/27/25 14:35 Pulse Oximetry 100 03/27/25 14:35 Oxygen Delivery Method Room Air 03/27/25 14:35 Temperature 99.0 F 03/27/25 18:08 Pulse Rate 59 L 03/27/25 20:08 Respiratory Rate 12 03/27/25 20:08 Blood Pressure 115/76 03/27/25 20:08 Pulse Oximetry 100 03/27/25 20:08 Oxygen Delivery Method Room Air 03/27/25 20:08 Medical Decision Making MDM Narrative Medical decision making narrative: The patient is a 19-year-old female presenting with persistent vaginal pain, right lower quadrant abdominal pain, and abnormal vaginal discharge. She was treated with antibiotics for chlamydia infection in November. Urinalysis showed trace occult blood, trace leukocyte esterase, and mild pyuria (5?10 WBCs), with small bacteria and mucus, suggesting possible mild urinary tract involvement. Pelvic exam revealed no outer labial or vaginal erythema. Mild thin white discharge noted in vagina and cervix. Vaginal wet prep revealed no evidence of Trichomonas or candidiasis, and no clue cells were observed. A transvaginal ultrasound revealed a stable, suspected hemorrhagic cyst on the left ovary, and CT abdomen/pelvis confirmed a stable adnexal cystic structure without signs of acute inflammation, such as appendicitis or PID. Given the mild urinary findings and absence of acute pathology, a decision was made to empirically initiate Macrobid (Nitrofurantoin) for presumed urinary tract infection, pending urine culture results. The patient was educated on the possible outcomes of the cultures, and it was discussed that if any significant changes are detected, she will be contacted for further management. The patient was discharged with a plan to follow up with [facility] for further evaluation of the ovarian cyst and to monitor for any worsening symptoms. She was advised to seek immediate care if her pain worsens or if new concerning symptoms (e.g., fever, severe pain) arise. Follow-up with [facility] was recommended, and the patient was instructed to return if necessary. Patient discharged in stavle condition. Differential Diagnosis Differential Diagnosis: BV, trichomonas, candidiasis, PID, chronic or recurrent chlamydia or gonorr Lab Data Lab results reviewed: Yes I reviewed the patient's lab results Labs: Lab Results 03/27/25 03/27/25 Range/Units 15:11 15:20 WBC 8.1 (4.0-11.0) 10^3/uL RBC 5.00 (4.20-5.40) 10^6/uL Hgb 14.9 (12.0-16.0) g/dL Hct 43.1 (36.0-48.0) % MCV 86.2 (81.0-99.0) fL MCH 29.8 (26.7-34.0) pg MCHC 34.6 (29.9-35.2) g/dL RDW 11.6 (11.0-15.0) % Plt Count 330 (150-450) 10^3/uL MPV 9.5 (9.5-13.5) fL Neut % (Auto) 69.0 (43.0-75.0) % Lymph % (Auto) 19.5 L (20.5-60.0) % Hayes % (Auto) 6.7 (1.7-12.0) % Eos % (Auto) 3.8 (0.9-7.0) % Baso % (Auto) 0.9 (0.2-2.0) % Neut # (Auto) 5.6 (1.4-6.5) 10^3/uL Lymph # (Auto) 1.6 (1.2-3.8) 10^3/uL Hayes # (Auto) 0.5 (0.3-0.8) 10^3/uL Eos # (Auto) 0.3 (0.0-0.7) 10^3/uL Baso # (Auto) 0.1 (0.0-0.1) 10^3/uL Abs Immat Gran (auto) 0.01 (0.00-0.03) 10^3/uL Imm/Tot Granulo (auto) 0.1 (0.0-0.5) % Sodium 141 (136-145) mmol/L Potassium 3.9 (3.5-5.1) mmol/L Chloride 103 (98-107) mmol/L Carbon Dioxide 27.2 (21.0-32.0) mmol/L Anion Gap 14.7 BUN 14.0 (7.0-18.0) mg/dL Creatinine 0.98 (0.55-1.02) mg/dL Est GFR ( Amer) >60 (>=60 mL/min/1.73m^2) Est GFR (Non-Af Amer) >60 (>=60 mL/min/1.73m^2) BUN/Creatinine Ratio 14.3 Glucose 101 (74-106) mg/dL Calcium 9.2 (8.5-10.1) mg/dL Total Bilirubin 0.7 (0.2-1.0) mg/dL AST 15 (15-37) U/L ALT 19 (14-59) U/L Alkaline Phosphatase 76 (46-116) U/L Total Protein 8.0 (6.4-8.2) g/dL Albumin 4.4 (3.4-5.0) g/dL Globulin 3.6 g/dL Albumin/Globulin Ratio 1.2 Urine Color Yellow (YELLOW) Urine Clarity Clear (CLEAR) Urine pH 5.5 (5.0-9.0) Ur Specific Sherborn >=1.030 A (1.005-1.025) Urine Protein Negative (NEG/TRACE) mg/dL Urine Glucose (UA) Negative (NEGATIVE) mg/dL Urine Ketones Negative (NEGATIVE) mg/dL Urine Occult Blood Trace-i (NEGATIVE) Urine Nitrite Negative (NEGATIVE) Urine Bilirubin Negative (NEGATIVE) Urine Urobilinogen 0.2 (0.2-1.0) EU/dL Ur Leukocyte Esterase Trace A (NEGATIVE) Urine RBC 0-2 (0-2) #/HPF Urine WBC 5-10 A (NONE SEEN) #/HPF Ur Squamous Epith Cells Moderate A (NONE/RARE) #/LPF Urine Crystals None seen (None Seen) #/HPF Urine Bacteria Small A (NONE SEEN) #/HPF Urine Casts None seen (NONE SEEN) #/LPF Urine Mucus Small A (NONE SEEN) Ur Culture Indicated? Yes-[facility] [place] Urine HCG, Qual Negative (NEGATIVE) Imaging Data CT scan - abdomen: Attestation: I have reviewed the pertinent imaging results. Radiologist's impression: ITS Impressions Transvaginal US 03/27/25 15:25 IMPRESSION: Suspected hemorrhagic cyst involving left ovary. Otherwise physiologic findings identified. Impression dictated by: Jonathan Salcedo M.D. 03/27/2025 5:19 PM Dictation Location: [place] Electronically authenticated by: [id number] Y Date: 03/27/2025 17:19 Abdomen/Pelvis CT 03/27/25 17:41 IMPRESSION: Stable left adnexal cystic structure. Otherwise negative acute inflammatory process or bowel obstruction. Impression dictated by: Jonathan Salcedo M.D. 03/27/2025 6:58 PM Dictation Location: [place] Electronically authenticated by: [id number] Y Date: 03/27/2025 18:58 Discharge Plan Discharge Chief Complaint: Urogenital-Female Clinical Impression: UTI (urinary tract infection), Hemorrhagic cyst of left ovary Patient Disposition: Home, Self-Care Time of Disposition Decision: 19:39 Condition: Good Mode of Transportation: Private Vehicle Prescriptions / Home Meds: New nitrofurantoin monohyd/m-cryst [Macrobid] 100 mg capsule 100 mg PO BID 5 Days Qty: 10 0RF Rx Instructions: must administer with a meal/food No Action hydroxyzine 25 mg capsule PO DAILY levothyroxine 25 mcg tablet 25 mcg PO DAILY lamotrigine 25 mg tablet 25 mg PO DAILY Rx Instructions: 25 mg orally 1 in am albuterol sulfate 90 mcg/actuation HFA aerosol inhaler 2 puff INHALATION Q4H PRN (Reason: shortness of breath or wheezing) aripiprazole 2 mg tablet 2 mg PO HS Print Language: Luxembourgish Instructions: Ovarian Cyst (ED), Urinary Tract Infection in Women (ED) Additional Instructions: * Hemorrhagic ovarian cyst (left ovary) * Possible mild urinary tract infection (culture pending) What We Found Your blood work and vital signs were normal. Your test was negative. Your imaging (ultrasound and CT scan) showed a hemorrhagic ovarian cyst, which is a common type of ovarian cyst that often resolves on its own. There was no sign of rupture, twisting of the ovary (torsion), appendicitis, or other dangerous conditions. Your urine test showed a small amount of inflammation, and we are sending a culture to determine whether you have a urinary infection. Medications For pain: * You may take ibuprofen 600 mg every 6 hours as needed with food, unless you have been told to avoid NSAIDs. * You may also use acetaminophen (Tylenol) 650?1000 mg every 6 hours as needed. * Do not exceed 3,000 mg of acetaminophen in 24 hours. For possible UTI: * Nitrofurantoin (Macrobid) 100 mg twice daily for 5 days, take with food. Activity * Rest and avoid strenuous activity for several days. * Pelvic rest (no intercourse, tampons, or douching) until symptoms improve. * Heat packs to the lower abdomen may help with pain. Follow-Up * Follow up with [facility] as soon as possible. * Your urine or vaginal culture may require treatment depending on results. We will contact you if medication changes are needed. Return to the ER Immediately If You Have: * Sudden, severe worsening pelvic or abdominal pain * Fever or chills * Persistent vomiting or inability to keep fluids down * Dizziness, fainting, or feeling light-headed * Heavy vaginal bleeding (soaking >1 pad/hour) * Severe one-sided pelvic pain with nausea (possible ovarian torsion) * Any symptoms that concern you or feel significantly worse Referrals: ANTIONETTE BENITEZ DO [Primary Care Provider] - 1 week Discharge Date/Time: 03/27/25 20:10
--- NOTE | 2025-03-27 15:25 | US_ITS ---
The [place] [id number] Patient Name: TRAVON RODRIGUEZ MRN: [id number] date: 2005 Sex: F Assigned Patient Location: ER Current Patient Location: ER Accession/Order Number: [id number] Exam Date: 03/27/2025 16:11 Report Date: 03/27/2025 17:19 At the request of: JAYDE CLEMENTE Procedure: US pelvis transvaginal Transvaginal pelvic ultrasound INDICATION: Right-sided pelvic pain and vaginal pain FINDINGS: Uterus anteverted measuring 6.5 x 3.6 x 5.1 cm. Incidental nabothian cysts within cervix. Endometrial thickness measures 1.1 cm. Right ovary 2.9 x 2.4 x 3.4 cm. Incidental follicles noted.. Left ovary 2.9 x 3.2 x 4.3 cm. There is hypoechoic cysts noted, likely hemorrhagic cyst 2.6 x 2.7 x 2.0 cm. No free fluid in cul-de-sac. US/US pelvis transvaginal IMPRESSION: Suspected hemorrhagic cyst involving left ovary. Otherwise physiologic findings identified. Impression dictated by: Jonathan Salcedo M.D. 03/27/2025 5:19 PM Dictation Location: [place] [address] Electronically authenticated by: [id number] Y Date: 03/27/2025 17:19
[2025-03-27 15:29] LABS: Hematocrit 43.1 % (36.0-48.0); Hemoglobin 14.9 g/dL (12.0-16.0); Immature Granulocytes Abs Auto 0.01 10^3/uL (0.00-0.03); Immature Granulocytes Pct Auto 0.1 % (0.0-0.5); Lymphocytes Absolute Auto 1.6 10^3/uL (1.2-3.8); Mean Corpuscular HGB Conc 34.6 g/dL (29.9-35.2); Mean Corpuscular Hemoglobin 29.8 pg (26.7-34.0); Mean Corpuscular Volume 86.2 fL (81.0-99.0); Platelet Count 330 10^3/uL (150-450); Red Blood Count 5.00 10^6/uL (4.20-5.40); White Blood Count 8.1 10^3/uL (4.0-11.0)
[2025-03-27 15:31] LABS: Glucose Urine UA NEGATIVE (NEGATIVE)
[2025-03-27 15:32] LABS: HCG Qualitative Urine* NEGATIVE (NEGATIVE)
--- NOTE | 2025-03-27 15:37 | PC.NURSE ---
pelvic exam complete with PA and this nurse at bedside, labs obtained
[2025-03-27 15:40] LABS: Cast Seen? NONE SEEN #/LPF (NONE SEEN); Crystals Seen? None Seen #/HPF (None Seen); Urine Culture Indicated YES-FRMC
[2025-03-27 15:44] LABS: Alanine Aminotransferase 19 U/L (14-59); Albumin Globulin Ratio 1.2; Albumin Level 4.4 g/dL (3.4-5.0); Alkaline Phosphatase 76 U/L (46-116); Anion Gap 14.7; Aspartate Amino Transferase 15 U/L (15-37); Blood Urea Nitrogen 14.0 mg/dL (7.0-18.0); Calcium 9.2 mg/dL (8.5-10.1); Carbon Dioxide 27.2 mmol/L (21.0-32.0); Chloride 103 mmol/L (98-107); Estimated GFR (African America >60 (>=60 mL/min/1.73m^2); Estimated GFR (Non-African Ame >60 (>=60 mL/min/1.73m^2); Globulin 3.6 g/dL; Glucose 101 mg/dL (74-106); Potassium 3.9 mmol/L (3.5-5.1); Sodium 141 mmol/L (136-145); Total Protein 8.0 g/dL (6.4-8.2)
--- NOTE | 2025-03-27 17:41 | CT_ITS ---
The [address] [address] Patient Name: TRAVON RODRIGUEZ MRN: [id number] date: 2005 Sex: F Assigned Patient Location: ER Current Patient Location: ER Accession/Order Number: [id number] Exam Date: 03/27/2025 18:27 Report Date: 03/27/2025 18:58 At the request of: JAYDE CLEMENTE Procedure: CT abdomen pelvis w con CT ABDOMEN AND PELVIS WITH INTRAVENOUS CONTRAST: CLINICAL HISTORY: RLQ pain COMPARISON: 03/27/2024 TECHNIQUE: Spiral images were obtained through the abdomen and pelvis following the administration of intravenous contrast. This CT exam was performed using one or more following dose reduction techniques: Automated exposure control, adjustment of the mA and/or kV according to patient size, or use of iterative reconstruction technique. FINDINGS: Lung Bases: [No focal opacity.] Organs:Liver, gallbladder, spleen, adrenals, and pancreas are unremarkable. Left-sided pelviectasis. Kidneys otherwise grossly unremarkable in size and enhancement.[ GI: Moderate stool burden throughout the colon. No bowel obstruction. Appendix 7 mm in size, there is similar in size the prior examination.. No pericecal or periappendiceal inflammatory change[ Pelvis:[Bladder unremarkable. Uterus unremarkable. Left adnexal cyst noted corresponding to the recent ultrasound findings.] Peritoneum/Retroperitoneum:No free air or free fluid.[No pathologic adenopathy. Aorta normal caliber. Abd wall/Bones:No suspicious osseous lesion.[ CT/CT abdomen pelvis w con IMPRESSION: Stable left adnexal cystic structure. Otherwise negative acute inflammatory process or bowel obstruction. Impression dictated by: Jonathan Salcedo M.D. 03/27/2025 6:58 PM Dictation Location: [place] [address] Electronically authenticated by: [id number] Y Date: 03/27/2025 18:58
[2025-03-27 18:08] VITALS: BP 137/87; PULSE 55; TEMP 37.2; O2SAT 99
[2025-03-27 20:08] VITALS: BP 115/76; PULSE 59; O2SAT 100
[2025-03-28 17:01] LABS: BOX Test Reference Lab Firelands
[2025-03-31 19:08] LABS: Neisseria gonorrhoeae, NAA Negative (Negative)
== END 2025-03-27 20:10 | disposition home or self-care (01) ==
PROVIDERS: Physician Assistant; Emergency Provider Emergency Medicine; PCP Family Medicine
DX: N39.0 Urinary tract infection, site not specified (principal); N83.202 Unspecified ovarian cyst, left side
CPT/HCPCS: 36415; 74177; 76830; 80053; 81001; 84703; 85025; 87070; 87086; 87210; 87491; 87591; 99285; Q9967

== ENCOUNTER 2025-03-30 13:35 | Emergency (ER) | payer OTHER, SELFPAY ==
--- OUTSIDE RECORDS SUMMARY | 2024-02-07 05:25 | XMS_ITS ---
Author Organization The [facility] in [place] Address [address] [place] [address] Care Team Providers Care Credentialer Name Role Phone None, Unknown or Primary Care Provider Unavailab le Provider, Lab Unavailable [phone] REASON FOR VISIT mlw Encounters Encounter Location Date Provider Diagnosis [facility] Lab [address]ld[address] [place] [address] 02/07/2024 Lab Provider Plan Of Treatment No Information Progress Notes * Trice STALLWORTHDOB: 4 (19 yo F)Acc No.[id number]:02/07/2024 UNLOCKED PROGRESS NOTE Progress Note Patient: Trice FITCH :?Lab ProviderDOB:2005???Age:18 Y???Sex: FemaleDate:02/07/2024hone:[phone]:124 IAN MORENO [id number]:Unknown or NoneCheck In:10:23 AM ESTCheck Out:10:30 AM EST Subjective: * Chief Complaints: * 1 . Mlw. * Medical History: Objective: * Vitals: Assessment: Plan: * Treatment: * * Electronic signature of Lab Provider on 03/30/2025 at 02:01 PM ESTSign off status: PendingVisit Status:?CHK (Check Out) * Provider: Jesse lagunas Provider Date: Generated for Printing/Faxing/eTransmitting on:?03/30/2025 02:01 PM EST
--- OUTSIDE RECORDS SUMMARY | 2025-03-27 19:33 | XMS_ITS | Continuity of Care Document ---
Author Organization [facility] Address [address] [place] [address] Phone Care Team Providers Care Chargeback Analyst Name Role Phone Jonatan ([facility])Jany PA-C Attending Opali gertrude Care Teams Patient Care Team Team Status: Inactive Member Role/Relationship Status Dates [facility] [place] Attending Provider A ctive Start: March 27, 2025 End: March 27, 2025 Social History Smoking Status Unknown if ever smoked Observation Status Observation Response Date of Response Legal Sex Female (finding) Sex Assigned At [facility] 2005 Procedures Procedure Date Performed Status Urine Culture March 27, 2025 active Encounters Encounter Location(s) Arrival/Admit Date Discharge/Departure Date Discharge/Departure Disposition Provider(s) Departed Referred -[facility] March 27, 2025 3:11pm March 27, 2025 3:12pm Discharged to home care or self care (routine discharge) [facility] Plan of Treatment Future Tests Future scheduled test information is unavailable Pending Tests Test Name Ordered Date Scheduled Date Urine Culture March 27, 2025 3:11pm Future Visits Future appointment information is unavailable Future Procedures Procedure Name Ordered Date Scheduled Date Urine Culture March 27, 2025 8:46pm Decemb er 2024 3:11pm Future Medications Future medication information is unavailable Patient Instructions Patient instructions are unavailable
[2025-03-30 13:39] VITALS: BP 133/86; PULSE 87; TEMP 37.2; O2SAT 99; BMI 25.1
--- NOTE | 2025-03-30 13:46 | ECG_ITS ---
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 Measurements Intervals [place] Rate: 78 P: 55 NC: 138 QRS: 90 QRSD: 76 T: 40 QT: 368 QTc: 402 Interpretive Statements 1100 Sinus rhythm 1470 with occasional supraventricular premature complexes 4068 Nonspecific Twave abnormality 9140 abnormal rhythm ECG Compared to ECG 03/08/2025 21:17:33 Sinus arrhythmia no longer present ST (T wave) deviation no longer present Electronically Signed On 03-30-2025 21:13:21 EST by RADHA FREEMAN M.D.
--- NOTE | 2025-03-30 13:46 | XR_ITS ---
The [place] [id number] Patient Name: TRAVON RODRIGUEZ MRN: [id number] date: 2005 Sex: F Assigned Patient Location: ER Current Patient Location: ED.MAIN Accession/Order Number: [id number] Exam Date: 03/30/2025 13:58 Report Date: 03/30/2025 14:15 At the request of: KURTIS KELLER MD Procedure: XR chest 1V PA CHEST: CLINICAL HISTORY: Chest pain COMPARISON: 02/09/2025 Unremarkable cardiomediastinal silhouette. No focal airspace opacity effusion or pneumothorax. XR/XR chest 1V IMPRESSION: NEGATIVE ACUTE PLEURAL-PARENCHYMAL. Impression dictated by: Jonathan Salcedo M.D. 03/30/2025 2:15 PM Dictation Location: [place] [address] Electronically authenticated by: [id number] Y Date: 03/30/2025 14:15
--- NOTE | 2025-03-30 13:52 | PC.NURSE ---
pt c/o L jaw pain that started today now is radiating into L chest. is anxious so she did take a hydroxyzine and a tylenol.
--- NOTE | 2025-03-30 13:56 | ED.GENADUL1 ---
HPI HPI - General Adult General Chief complaint: Dental/Oral Stated complaint: JAW AND CHEST PAIN Time Seen by Provider: 03/30/25 13:39 History of Present Illness HPI narrative: 19-year-old female presents for left-sided chest pain which she has had for an hour and a half. She states that her left jaw was hurting and she has had issues like this in the past. She saw her dentist 2 days ago and everything was fine including x-rays. Today her chest started hurting so she came in to get checked. No trauma or fever or complaints of shortness of breath. Related Data Home Medications ?Medication ?Instructions ?Recorded ?Confirmed hydroxyzine PO DAILY 04/11/24 levothyroxine 25 mcg tablet 25 mcg PO DAILY 11/09/24 03/08/25 lamotrigine 25 mg tablet 25 mg PO DAILY 02/09/25 03/08/25 albuterol sulfate 90 mcg/actuation 2 puff inhalation Q4H PRN 03/08/25 03/08/25 aerosol inhaler shortness of breath or wheezing aripiprazole 2 mg tablet 2 mg PO HS 03/08/25 03/08/25 Previous Rx's ?Medication ?Instructions ?Recorded nitrofurantoin 100 mg PO BID 5 days #10 caps 03/27/25 monohydrate/macrocrystals 100 mg capsule (Macrobid) Allergies Allergy/AdvReac Type Severity Reaction Status Date / Time ciprofloxacin (From Cipro) Allergy Unknown Rash Verified 03/30/25 13:39 Opioid HPI Opioid Management Most Recent Opioid Data: Last Pain Scale 7 03/14/25, 04:14 Ur Phencyclidine Scrn, (NEGATIVE) Negative 03/08/25, 21:22 Review of Systems ROS Narrative A ten point review of systems is negative except as noted above. PFSH PFSH Social History Little interest or pleasure in doing things: not at all Feeling down, depressed, or hopeless: not at all Exam Narrative Exam Narrative: Nurses note and vital signs reviewed General:The patient appears well and in no apparent distress.Patient is resting comfortably on cart. Skin:Warm, dry, no pallor noted.There is no rash noted. Head:Normocephalic, atraumatic Eye: Normal conjunctiva, no drainage Ears, Nose, Mouth, and Throat: oral mucosa is moist. Nares patent. No jaw swelling or erythema. Cardiovascular:Regular Rate and Rhythm. Chest wall has some tenderness which reproduces her symptoms. No crepitus. Respiratory:Patient is in no distress, no accessory muscle use, lungs are clear to auscultation, no wheezing, rales or rhonchi Back:non-tender GI: Soft and nontender Musculoskeletal: The patient has no evidence of calf tenderness, no pitting edema, symmetrical pulses noted bilaterally Neurological:A&O, normal speech Psychiatric:Cooperative Constitutional Vital Signs, click to edit/add: Last Vital Signs Temp 99 F 03/30/25 13:39 Pulse 87 03/30/25 13:39 Resp 16 03/30/25 13:39 BP 133/86 03/30/25 13:39 Pulse Ox 99 03/30/25 13:39 O2 Del Method Room Air 03/30/25 13:39 Course Vital Signs Vital signs: Vital Signs Temperature 99 F 03/30/25 13:39 Pulse Rate 87 03/30/25 13:39 Respiratory Rate 16 03/30/25 13:39 Blood Pressure 133/86 03/30/25 13:39 Pulse Oximetry 99 03/30/25 13:39 Oxygen Delivery Method Room Air 03/30/25 13:39 Temperature 99 F 03/30/25 13:39 Pulse Rate 87 03/30/25 13:39 Respiratory Rate 16 03/30/25 13:39 Blood Pressure 133/86 03/30/25 13:39 Pulse Oximetry 99 03/30/25 13:39 Oxygen Delivery Method Room Air 03/30/25 13:39 Medical Decision Making MDM Narrative Medical decision making narrative: Her workup including chest x-ray and EKG is normal and she is able to be discharged home. There is no evidence of heart or lung disease in this patient. I suspect that this might be due to anxiety. Treatment diagnosis and follow-up were discussed with the patient. Differential Diagnosis Differential Diagnosis: Chest pain, pneumothorax, heart disease, anxiety Imaging Data Chest x-ray: Radiologist's impression: ITS Impressions Chest X-Ray 03/30/25 13:46 IMPRESSION: NEGATIVE ACUTE PLEURAL-PARENCHYMAL. Impression dictated by: Jonathan Salcedo M.D. 03/30/2025 2:15 PM Dictation Location: [place] [address] Electronically authenticated by: [id number] Y Date: 03/30/2025 14:15 ECG Data Attestation: I personally reviewed and interpreted this ECG as follows: (EKG on my interpretation shows sinus rhythm with a rate of 78 and no acute change) Discharge Plan Discharge Chief Complaint: Dental/Oral Clinical Impression: Chest pain Patient Disposition: Home, Self-Care Time of Disposition Decision: 14:36 Condition: Good Mode of Transportation: Private Vehicle Prescriptions / Home Meds: No Action hydroxyzine 25 mg capsule PO DAILY levothyroxine 25 mcg tablet 25 mcg PO DAILY lamotrigine 25 mg tablet 25 mg PO DAILY Rx Instructions: 25 mg orally 1 in am albuterol sulfate 90 mcg/actuation HFA aerosol inhaler 2 puff INHALATION Q4H PRN (Reason: shortness of breath or wheezing) aripiprazole 2 mg tablet 2 mg PO HS nitrofurantoin monohyd/m-cryst [Macrobid] 100 mg capsule 100 mg PO BID 5 Days Qty: 10 0RF Rx Instructions: must administer with a meal/food Print Language: Belarusian Instructions: Chest Pain (ED) Referrals: ANTIONETTE BENITEZ DO [Primary Care Provider] - 1 week
--- OUTSIDE RECORDS SUMMARY | 2025-03-30 14:01 | XMS_ITS | Clinical Summary ---
Author Organization [facility] Address [address] [place] [address] Care Team Providers Care Furnace Roaster Name Role Phone Liam Douglas MD Primary Care Provider [phone] Tania Youngblood Unavailable Allergies Active AllergyReactionsCriticalityNoted DateCommentsCiprofloxacinPalpitationsLow [...] InformationValueDate RecordedSex Assigned at BirthNot on fileLegal BwpAdazyb79/30/2024 1:49 PM ESTGender IdentityNot on fileSexual OrientationNot on file Last Filed Vital Signs Vital SignReadingTime TakenCommentsBlood Aptyonyv303/8204 9:21 AM EDT Gcdim6756 9:21 AM EDTTemperature--Respiratory Cebu3951 9:21 AM EDTOxygen Hhwjutxpff55%08/12/2024 9:21 AM EDTInhaled Oxygen Concentration-- Aqstna00.4 kg (153 lb)08/12/2024 9:21 AM WQPNcavkk784.3 cm (5' 9 )08/12/2024 9:21 AM EDTBody Mass Index22.59008/12/2024 9:21 AM EDT Plan of Treatment Not on file Insurance Care Teams Team MemberRelationshipSpecialty[place] [address] [place] [address] PCP - GeneralFamily Byvhrdgi37/30/24 [place] [address] [place] [address] Physician AssistantNeurology08/12/24
--- OUTSIDE RECORDS SUMMARY | 2025-03-30 14:01 | XMS_ITS | Patient Health Record ---
Author Organization [facility] in [place] Address [address] [address] Care Team Providers Care Senior Microstrategy Developer Name Role Phone None, Unknown or Primary Care Provider UnavailJenna Gomes [phone] Allergies No Known Allergies Reason For Referral No Information Medications Medication SIG (Take, Route, Frequency, Duration) Notes Start Date End Date Status Terconazole 0.8 % 1 applicatorful at b edtime Vaginal Once a day; Duration: 3 day(s) 4ActivehydrOXYzine HClActiveAbilifyActive Immunizations Vaccine Route Administration Date Status Comme nts HPV VACCINE 9 VALENT Unknown 02/13/2017 Administered HPV VACCINE 9 HCTBSLUzfilwu81/23/2018Administered Social History Tobacco Use: Social History Observation Description Date Details (start date - stop date) Current Smoker NA - NA Tobacco Control (Standard) Question Answer Notes Tobacco use: Current smoker Problems Problem Type SNOMED Code ICD Code Onset Dates Problem Status W/U Status Risk Notes Problem 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) Secondar y amenorrhea (N91.1) Activeconfirmed Encounters Encounter Location Date Provider Diagnosis Gynecology Main [place] [address] [place] [address] 02/18/2025 Jenna Castro Gynecology Main [address] [place] [address] 02/06/2025deana Castro Plan Of Treatment No Information Insurance Providers Payer Name Payer Address Payer Phone Subscriber Number Group Number Insured Name Patient Relationship to Insured Coverage Start Date Coverage End Date FRONTPATH MEDBEN [address] [place]ILARIO ESPINOZA [id number] Federica, AmandaNatlynda Child - Insured does not have Financial Responsibility (includes legally adopted child) Medical (General) History Medical History History ICD Code CAT
--- OUTSIDE RECORDS SUMMARY | 2025-03-30 14:01 | XMS_ITS | Clinical Summary ---
Author Organization [facility] Address [facility] [address] [place] [address] Care Team Providers Care Register In Chancery Name Role Phone Ref Prov, Not In [...] 21 tablet 1205Active Active Problems ProblemNoted DateDiagnosed MbpgNxtknqj31/26/2025Trichotillomania in pediatric chrgljy0102/13/20173611Bmvxupq03/04/2016 Encounters DateTypeDepartmentCare GuifMnqkotgvzkl05/17/2025 8:24 PM EST - 03/10/2025 9:26 PM [facility] [address] [facility] [place] [id number] Reji Martin DO Chest tightness (Primary Dx) Discharge Disposition: Home03/10/20257525Gbnade60/13/2025 7:41 PM EST - 03/06/2025 7:44 PM [facility] [address] [place] [address] Zachary Steele MD Discharge Disposition: Left Without Treatmentfrom Last 3 Months Immunizations ImmunizationAdministration DatesNext SfcQVgF6410/22/2007,04/20/2005,04/28/2004, 03/15/2004,01/06/2004HPV91,02/13/2017Hep B, Adolescent or Pediatric 04/28/2004,03/15/2004,01/06/2004,2003Hepatitis A010/23/2012,01/17/2012HiB 01/19/2005,04/28/2004,03/15/2004,01/06/2004IPV10/22/2007,04/28/2004,03/15/2004, 01/06/2004Influenza LAIV (Nasal)02/10/2020Influenza, Injectable, quadrivalent (PF)02/23/2021,02/13/2018,02/13/2017Influenza, Gakmlvyvqom01/18/2016,03/23/2015, 02/04/2006MMR10/22/2007,01/19/2005Meningococcal B, Omv105/16/2019,02/10/2020 Meningococcal Lnljqbwje31/19/2020,03/23/2015Pneumococcal Conjugate 13-Valent 10/21/2004,07/16/2004,03/15/2004,01/06/2004Tdap11/30/2023,12/02/2013Varicella 10/22/2007,10/21/2004 Family History Medical HistoryRelationNameCommentsDepressionBrotherHyperthyroidismBrother Learning disabilitiesBrotherMental illnessBrotherHypertensionFatherMental illnessFatherAtrial fibrillationMaternal GrandmotherHypothyroidismMotherMental illnessMotherRelationNameStatusCommentsBrotherAliveFatherAliveMaternal GrandmotherAliveMotherAlive Social History Tobacco UseTypesPacks/DayYears UsedDateSmoking Tobacco: FormerCigarettes0.51.2 Started: 01/2024Smokeless Tobacco: NeverAlcohol UseStandard Drinks/WeekComments Yes0 (1 standard drink = 0.6 oz pure alcohol)sociallyPHQ-2AnswerDate Recorded Total Fnnkm5582/23/2018ChildcareAnswerDate WutnebomKsdrairmdRdkeuup32/10/2019 EmploymentAnswerDate IwmiwvswRlzxsaojctDaetnqc19/10/2019Hunger ScreeningAnswer Date RecordedWithin the past 12 months we worried whether our food would run out before we got money to buy more.Never True03/10/2025Within the past 12 months the food we bought just didn't last and we didn't have money to get more.Never True03/10/2025Purpose - LifeAnswerDate RecordedPurpose and direction in life Zlezajo58/10/2021CommentsNoSex and Gender InformationValueDate Recorded Sex Assigned at BirthNot on fileLegal YmgIununl82/04/2015 3:17 PM EDTGender IdentityNot on fileSexual OrientationNot on file Last Filed Vital Signs Vital SignReadingTime TakenCommentsBlood Uimvymuo463/7403/10/2025 9:26 PM EST Yhhin220903/10/2025 9:26 PM DBWCukioeinaqt30.1 ??C (97 ??F)03/10/2025 6:56 PM EST Respiratory Kxym604505/10/2024 9:26 PM ESTOxygen Vjpezydwcc83%03/10/2025 9:26 PM ESTInhaled Oxygen Concentration--Mnjmzs24.8 kg (165 lb)03/10/2025 6:56 PM EST Byjclq848.3 cm (5' 9 )03/10/2025 6:56 PM ESTBody Mass Index24.37105/10/2024 6:56 PM EST Plan of Treatment Health MaintenanceDue DateLast DoneCommentsDepression Rnktlimmz99/08/2025 11/30/2023OVID-19 Vaccine ( season)501/, 09/02/2020, 08/12/2020Influenza Invdrzg11/01/518521/05/2020, 02/10/2020, 02/13/2018, Additional history existsChlamydia Pbywhcevs71/12/2024, 12/19/2024, 10/24/2024, Additional history existsAdult BMI Huixhphvx63/ Tobacco Iikndwmim98Pap Smear/06/2024, 02/07/2024 DTaP,Tdap and Td Vaccines (8 - Td or Tdap)/11/2023, 12/02/2013, 10/22/2007, Additional history exists Medical Devices Not on file Procedures Procedure NamePriorityDate/TimeAssociated DiagnosisCommentsECG 12-LEADSTAT 03/10/2025 9:04 PM ESTXR CHEST 2 OYGVHWR21/17/2025 8:34 PM EST SARS/FLU A+B/RSV BY NAAT/MOLECULAR (M4RT COLLECTION TUBE)STAT105/10/2024 7:01 PM EST THIN PREP PAP UMMRYhhvezg41/03/2025 2:51 PM EDT Well woman exam with routine gynecological exam CHLAMYDIA/GC BY PCR JOAO HGLQCkfmpje86/03/2025 2:51 PM EDT Unprotected sexual intercourse from [...] 8:43 PM Authorizing ProviderResult TypeResult StatusMaxsabino Martin [facility] DIAGNOSTIC IMAGING ORDERABLESFinal Result * SARS/FLU A+B/RSV by NAAT/Molecular (M4RT Collection Tube) (03/10/2025 7:01 PM EST)ComponentValueRef RangeTest MethodAnalysis TimePerformed AtPathologist SignatureFLU A OLQZvonyuanSzpdthck10/17/2025 7:45 PM ESTPROM[facility] HOSPITALFLU B UIVAapptcvcNzyizcbw43/17/2025 7:45 PM ESTPROM[facility]ITALRSV BY TDGHqwioscjQkftjyca03/17/2025 7:45 PM EST [facility] COV 2 BY PCRNot DetectedNot Detected 03/10/2025 7:45 PM ESTPROMEDICA ST[facility]IV[facility]ITY MEDICAL CENTERpecimen (Source) Anatomical Location / LateralityCollection Method / VolumeCollection Time Received TimeSwabNasopharyngeal structure / Pzaoxfb2503/10/2025 7:01 PM EST 03/10/2025 7:07 PM EST Ac [facility] - 03/10/2025 7:45 PM EST The [...] operators who are performing tests using either [employer] or [employer] systems and is limited to laboratories that [...] repeat. Fact Sheet for Healthcare Providers: ?? https://www.fda.gov/media/828217/download ? Fact Sheet for Patients: ?? https://www.fda.gov/media/684323/download ?? Authorizing ProviderResult TypeResult StatusMaxsabino Martin DOMICROBIOLOGY - GENERAL ORDERABLESFinal ResultPerforming OrganizationAddressCity/State/ZIP CodePhone Number [facility] [address] [place] [address], [place] * Thin Prep Pap Test (10/24/2024 2:51 PM EDT)ComponentValueRef RangeTest Method Analysis TimePerformed AtPathologist SignatureCase ReportGynecologic Cytology Report ? Case: [id number] ? Authorizing Provider: ??Yenny Lozano MD ?Collected: ? 10/24/2024 1451 ? Ordering Location: ? [facility] ? Received: ?10/24/2024 1452 ? Obstetrics/Gynecology ? First Screen: ?Aissatou Howell, CT(ASCP) ? Rescreen: ?Thang Willson, ? CT(ASCP) ? Specimen: ?Thin Prep Pap, Cervix/Endocervix ? 10/28/2024 3:31 PM [facility] LABORATORYSpecimen Adequacy Satisfactory for evaluation, endocervical/transformation zone component absent 10/28/2024 3:31 PM [facility] LABORATORYInterpretationNEGATIVE FOR INTRAEPITHELIAL LESION OR MALIGNANCYNEGATIVE FOR INTRAEPITHELIAL LESION OR MALIGNANCY, UNSATISFACTORY, EPITHELIAL CELL ABNORMALITY, GLANDULAR EPITHELIAL CELL ABNORMALITY. , SQUAMOUS EPITHELIAL CELL ABNORMALITY, NO DIAGNOSIS RENDERED. 10/28/2024 3:31 PM [facility] at 1531 EDTOther FindingsFungal organisms morphologically consistent with Tara species are present.10/28/2024 3:31 PM [facility] LABORATORYAdditional InformationThe Pap test is a screening test with an inherent, but low, probability of error. The Pap test is primarily effective for the diagnosis and prevention of squamous cell carcinoma. Regular screening iscritical for prevention. ThinPrep liquid-based slides, which meet the Ring Spinner criteria for automated screening, have been screened by the ThinPrep Imaging System (as of 01/08/07) along with an additional manual rescreening by a dental mechanic and, if indicated, by a pathologist.10/28/2024 3:31 PM [facility] LABORATORYClinical Informationannual with pap10/28/2024 3:31 PM [facility] LABORATORYEmbedded Jrsqhk8210/28/2024 3:31 PM [facility] LABORATORYSpecimen (Source)Anatomical Location / LateralityCollection Method / VolumeCollection TimeReceived TimeThinPrep cytology technique (qualifier value) (Cervix/Endocervix)10/24/2024 2:51 PM EDT10/24/2024 2:52 PM EDT Narrative Authorizing ProviderResult TypeResult StatusTiflety Monte Blake MDPATHOLOGY/CYTOLOGY ORDERABLESFinal ResultPerforming OrganizationAddressCity/State/ZIP CodePhone Number [facility] [address] [place] [address], * Chlamydia/GC by PCR Joao Swab (10/24/2024 2:51 PM EDT)ComponentValueRef Range Test MethodAnalysis TimePerformed AtPathologist SignatureCHLAMYDIA DNA(PCR) OoclsnmyAdxaehhn50/04/2025 10:55 AM [facility] Comment:Chlamydia trachomatis not detected by nucleic acid amplification. This does not exclude the possibility of infection because results are dependent on adequate specimen collection.GONORRHOEAE DNA(PCR)IvxtenejZmxydjax70/04/2025 10:55 AM [facility] LABORATORYComment:Neisseria gonorrhoeae not detected by nucleic acid amplification. This does not exclude the possibil ity of infection because results are dependent on adequate specimen collection.Specimen (Source)Anatomical Location / LateralityCollection Method / VolumeCollection TimeReceived TimeSwabVaginal structure / Tokwxnj7210/24/2024 2:51 PM EDT10/24/2024 2:52 PM EDT Narrative Authorizing ProviderResult TypeResult StatusTiflety Lozano MDMICROBIOLOGY - GENERAL ORDERABLESFinal ResultPerforming OrganizationAddressCity/State/ZIP Code Phone Number [facility] [address] [place] [address], [place] [phone] from Last 3 Months or Most Recently Relevant to Health Maintenance Insurance * Guarantor: Trice StallworthAccount TypeRelation to PatientDate of BirthPhoneBilling AddressPersonal/ZexqcsJuyb04/28/2006 [address] [place] [address] Care Teams Team MemberRelationshipSpecialtyStart DateEnd Date Ref Prov, [place] [address] PCP - General06/21/24
--- OUTSIDE RECORDS SUMMARY | 2025-03-30 14:01 | XMS_ITS | Clinical Summary ---
Author Organization [facility] Address [address] [place] [address] Phone Care Team Providers Care Icu Nurse Name Role Phone Unavailable Primary Care Provider Unavailabl e Allergies Active AllergyReactionsCriticalityNoted DateCommentsCiprofloxacinOther, TqbjiwokxwebFoq89/13/2024 Heart palp, hard time breathing, shaking Other [...] Problems No known active problems Encounters DateTypeDepartmentCare RkwiMefirhmbxpl63/15/2025 5:55 PM ESTOffice Visit Urgent Care [place] [address] [facility] [address] [place] [address] Disha Curiel PA-C Viral URI (Primary Dx); Suspected COVID-19 virus infectionfrom Last 3 Months Social History Tobacco UseTypesPacks/DayYears UsedDateSmoking Tobacco: Every DayCigarettes Smokeless Tobacco: Never Tobacco Cessation:Ready to Q uit: Not Asked; Counseling Given: Not Answered CommentsNoSex and Gender InformationValueDate RecordedSex Assigned at BirthNot on fileLegal FleRzatjc07/26/2022 9:45 AM ESTGender IdentityNot on file Sexual OrientationNot on file Last Filed Vital Signs Vital SignReadingTime TakenCommentsBlood Croprfwn457/8103/08/2025 5:59 PM EST Hqzgf670303/08/2025 5:59 PM TGLWpkswoiuoju60 ??C (98.6 ??F)03/08/2025 5:59 PM EST Respiratory Kvev818105/08/2024 5:59 PM ESTOxygen Ersglcfcnr95%03/08/2025 5:59 PM ESTInhaled Oxygen Concentration--Weight--Height--Body Mass Index-- Plan of Treatment Health MaintenanceDue DateLast DoneCommentsHIV Khbwigrpg42/28/2004Hearing Screening (#1)2007Pneumococcal Vaccine: Pediatrics and At-Risk Adult Patients (1 of 1 - PPSV23, PCV20, or PCV21), 07/16/2004, 03/15/2004, Additional history existsHepatitis C Xphvxfgux80/28/2022HPV/Cotest 10/19/2024Influenza Vaccine (#1)/05/2020, 02/10/2020, 02/13/2018, Additional history existsCOVID-19 Vaccine (1 - season)2024early Adult Hbwfycqg76, 11/30/2023, 02/23/2021, Additional history existsTSH Level610/ervical Cancer Pvpmrithk49/03/2028Pap Smear Lipid Panel, 2DTaP/Tdap/Td Vaccines (8 - Td or Tdap)/11/2023, 12/02/2013, 10/22/2007, Additional history existsZoster Vaccines (1 of 2), 10/21/2004Hepatitis B HonrkebcIlgdpaggb56/05/2005, 04/28/2004, 03/15/2004, Additional history existsHIB YrrfbvsnQdsuwavxw80/28/2005, 04/28/2004, 03/15/2004, Additional history existsIPV FzyeqopnJccbxqadx73/30/2008, 04/28/2004, 04/28/2004, Additional history existsMMR VaccinesCompleted 10/22/2007, 01/19/2005Hepatitis A YagyepmoQktkdhjrz36/02/2013, 01/17/2012HPV SniqpngjKehnltahq76/23/2018, 02/13/2017Meningococcal YfozgnpLrcrgjzhl57/19/2020, 03/23/2015Meningococcal B MjxebjpSpkowguha40/23/2020, 02/10/2020Chlamydia ScreeningDiscontinuedRotavirus VaccinesAged OutNo longer eligible based on patient's age to complete this topic Procedures Procedure NamePriorityDate/TimeAssociated DiagnosisCommentsSPOTFIRE R/ST PANEL MINI W/FDEHSSgpiywq47/15/2025 6:21 PM EST Suspected COVID-19 virus infection LIPID QZLIMIxghpvf34/27/2022 7:35 AM EDT from Last 3 Months or Most Recently Relevant to Health Maintenance Results * POCT SPOTFIRE R/ST Panel Mini w/COVID ([facility]) manually resulted (03/08/2025 6:21 PM EST)ComponentValueRef RangeTest MethodAnalysis Time Performed AtPathologist SignaturePOC Sars-Cov-2 PCRNegativeNegativePOC Respiratory Syncytial Virus PCRNegativeNegativePOC Influenza A Virus PCR NegativeNegativePOC Influenza B Virus PCRNegativeNegativePOC Human Rhinovirus PCRNegativeNegativeSpecimen (Source)Anatomical Location / LateralityCollection Method / VolumeCollection TimeReceived ZyifRsby15/15/2025 6:21 PM EST Narrative Authorizing ProviderResult TypeResult StatusArcarolina KERNOINT OF CARE TEST ENTER/EDIT ORDERABLESFinal Result * Lipid Panel (12/18/2021 7:35 AM EDT)ComponentValueRef RangeTest MethodAnalysis TimePerformed AtPathologist JdqktpyicCigesopkeaq2030 - 199 mg/dLE[facility] LABComment: . ?AGE ?DESIRABLE ?? BORDERLINE [...] be performed immediately prior to Metamizole dosing. HDL50.4mg/dLELLIS [facility]ITAL LABComment: . ?AGE ?VERY LOW ?? LOW ? NORMAL ?HIGH ?? 0-19 Y < 35 < 40 40-45 ---- 20-24 Y ---- < 40 >45 ---- >24 Y ---- < 40 40-60 >60 . Cholesterol/HDL Ratio2.3GA.[facility]. [facility] LABComment: REF VALUES DESIRABLE < 3.4 HIGH RISK > 5.0 YBS796 - 109 mg/dLELL[facility] LABComment: . ? NEAR ?BORD ?AGE ?DESIRABLE ??OPTIMAL ?HIGH ? HIGH ? VERY HIGH 0-19 Y 0 - 109 --- 110-129 >/= 130 ---- 20-24 Y 0 - 119 --- 120-159 >/= 160 ---- >24 Y 0 - 99 100-129 130-159 160-189 >/=190 . VLDL60 - 40 mg/dLE[facility] PZNPtltzhvtcbmlf551 - 149 mg/dLE[facility] LABComment: . ?AGE ?DESIRABLE ?? BORDERLINE [...] immediately prior to Metamizole dosing. Non HDL Ovufilxpdkv976 - 119 mg/dLELLIS [facility] LABComment: ?AGE ?DESIRABLE ?? BORDERLINE HIGH [...] MDLAB BLOOD ORDERABLESFinal ResultPerforming OrganizationAddressCity/State/ZIP CodePhone Number [facility] [address] [place] [address] from Last 3 Months or Most Recently Relevant [place] [id number]
--- OUTSIDE RECORDS SUMMARY | 2025-03-30 14:01 | XMS_ITS | Clinical Summary ---
Author Organization [employer] Address [address] [place] [address] Care Team Providers Care Loader Demolder Name Role Phone Liam Douglas Primary Care Provider [phone] Allergies No known active allergies Medications * [...] 5Active Active Problems ProblemNoted DateDiagnosed DateBorderline personality xrebeibw85/29/2025 Ywkhmsunu72/29/2025acterial zdfnqyzak30/29/2025Urinary tract infection 12/20/2024Eating disorder, meqmemkvivv96/29/6162Zycwhmhnutskpn16/29/2025 Resolved Problems ProblemNoted DateDiagnosed DateResolved DateSuicidal pdhogvmt07/26/2025 12/20/2024 Social History Tobacco UseTypesPacks/DayYears UsedDateSmoking Tobacco: NeverSmokeless Tobacco: NeverAlcohol UseStandard Drinks/WeekCommentsNot Currently0 (1 standard drink = 0.6 oz pure alcohol)[facility] UtilitiesAnswerDate RecordedIn the past 12 months has the electric, gas, oil, or water company threatened to shut off services in your home?No12/18/2024Humiliation, Afraid, Rape, and Kick questionnaireAnswerDate RecordedWithin the last year, have you been afraid of your partner or ex-partner?Patient axlzmwur37/27/2025Within the last year, have you been humiliated or emotionally abused in other ways by your partner or ex-partner? Patient fmteotac54/27/2025Within the last year, have you been kicked, hit, slapped, or otherwise physically hurt by your partner or ex-partner?Patient fqudvkxa57/27/2025Within the last year, have you been raped [...] times a week12/18/2024How often do you attend mormon or anabaptist services?Patient ihdokhjm86/27/2025Do you belong to any clubs or organizations such as mormon groups, unions, fraternal or athletic groups, or school groups?Patient ynurhupg28/27/2025How often do you attend meetings of the clubs or organizations you belong to?Patient hnzteato38/27/2025 Are you , , , , never , or living with a partner?Never eopyqkk4612/18/2024UDIT-CAnswerDate RecordedQ1: How often do you have a drink containing alcohol?Patient unable to eejmzi2412/18/2024Q2: How many drinks containing alcohol do you have on a typical day when you are drinking? Patient unable to fqmzpc7812/18/2024Q3: How often do you have six or more drinks on one occasion?Patient unable to mwhnzu0812/18/2024Overall Financial Resource Strain (CARDIA)AnswerDate RecordedHow hard is it for you to pay for the very basics like food, housing, medical care, and heating?Not hard at all12/18/2024 PHQ-2AnswerDate RecordedPatient Health Questionnaire-2 Ruqod114Finj[facility] [place] of Occupational [facility] - Occupational Stress QuestionnaireAnswerDate RecordedDo you feel stress - tense, restless, nervous, or anxious, or unable to sleep at night because yourmind is troubled all the time - these days?To some pqkwde9912/18/2024Exercise Vital SignAnswerDate RecordedOn average, how many days per week do you engage in moderate to strenuous exercise (like a brisk walk)? 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 Not on fileNot on file Last Filed Vital Signs Vital SignReadingTime TakenCommentsBlood Xshgzlsu756/7708 8:08 AM EDT Uanwm559112/20/2024 8:08 AM RFACvlkxdhfrvw78.7 ??C (98.1 ??F)12/20/2024 8:08 AM EDTRespiratory Xpef217712/20/2024 8:08 AM EDTOxygen Kdtcylhgbf981%12/20/2024 8:08 AM EDTInhaled Oxygen Concentration--Xfwlmr80 kg (130 lb)12/17/2024 10:25 PM EDT Hhiite409.6 cm (5' 4 )12/17/2024 10:25 PM EDTBody Mass Index22.31012/17/2024 10:25 PM EDT Plan of Treatment Health MaintenanceDue DateLast DoneCommentsHIV Bbowmxoja73/28/2004Hepatitis C Mvwpygenc73/28/2022OVID-19 Vaccine ( season)/, 09/02/2020, 08/12/2020Influenza Vaccine (#1)/05/2020, 02/10/2020, 02/13/2018, Additional history existsDepression Cxwapxinbw18/27/466617/ TSH Level10/039853/12/2024Pap Smear07/03/020347/06/2024DTaP/Tdap/Td Vaccines (8 - Td or Tdap)/11/2023, 12/02/2013, 10/22/2007, Additional history existsZoster Vaccines (1 of 2), 10/21/2004RSV Immunization for Adults (1 - 1-dose 75+ series)10/19/2078Hepatitis B VaccinesCompleted 04/28/2004, 04/28/2004, 03/15/2004, Additional history existsPneumococcal Vaccine: Pediatrics (0 to 5 Years) and At-Risk Patients (6 to 49 Years)Completed 10/21/2004, 07/16/2004, 03/15/2004, Additional history existsHIB Vaccines Jqjhwmnxf73/28/2005, 04/28/2004, 03/15/2004, Additional history existsIPV OhumfhtyShbdajcif98/30/2008, 04/28/2004, 04/28/2004, Additional history exists MMR MjwwlnoqFiwkftube86/30/2008, 01/19/2005Varicella VaccinesCompleted 10/22/2007, 10/21/2004Hepatitis A JoznqmjbTrlbndtkk84/02/2013, 01/17/2012HPV LhqcfzwlZbocvjsty40/23/2018, 02/13/2017Meningococcal BsmeofyFfdvmwlfr77/19/2020, 03/23/2015Meningococcal B DieukfgWfikpsxhv30/23/2020, 02/10/2020RSV Immunization under 20 MonthsAged OutNo longer eligible based on patient's age to complete this topicRotavirus VaccinesAged OutNo longer eligible based on patient's age to complete this topic Insurance Advance Directives * Full Code (Latest Code Status on File) Date ActivatedDate InactivatedComments12/17/2024 11:27 PM12/20/2024 8:56 PM Care Teams Team MemberRelationshipSpecialtyStart DateEnd Date Liam Douglas DO [address] [place] [address] [facility]12/17/24
== END 2025-03-30 14:41 | disposition home or self-care (01) ==
PROVIDERS: Emergency Provider Emergency Medicine; PCP Family Medicine
DX: R07.9 Chest pain, unspecified (principal)
CPT/HCPCS: 71045; 93005; 99284

== ENCOUNTER 2025-04-14 21:41 | Emergency (ER) | payer OTHER, SELFPAY ==
[2025-04-14 23:17] VITALS: BP 110/88; PULSE 71; TEMP 36.6; O2SAT 99; BMI 25.1
[2025-04-14 23:45] LABS: Glucose Urine UA NEGATIVE (NEGATIVE)
[2025-04-14 23:46] LABS: HCG Qualitative Urine* NEGATIVE (NEGATIVE)
[2025-04-14 23:51] LABS: Cast Seen? NONE SEEN #/LPF (NONE SEEN); Crystals Seen? None Seen #/HPF (None Seen); Urine Culture Indicated NO
--- NOTE | 2025-04-14 23:58 | ED.FEMALEGU1 ---
HPI - Female Genitourinary General Chief complaint: Urogenital-Female Stated complaint: UTI symptoms Time Seen by Provider: 04/14/25 22:02 Source: patient Mode of arrival: walk-in Limitations: no limitations History of Present Illness HPI Narrative: This 19-year-old female presents for evaluation of burning urination and in her left lower quadrant. She was seen here on March 27 and diagnosed with a hemorrhagic left ovarian cyst. She is not having any flank pain. She does not have any nausea or vomiting. She denies any fevers or chills. She does not have any concerns for STDs. She has not been seen in follow-up by her WRAPPING CLERK for the ovarian cyst. Related Data Home Medications ?Medication ?Instructions ?Recorded ?Confirmed hydroxyzine PO DAILY 04/11/24 levothyroxine 25 mcg tablet 25 mcg PO DAILY 11/09/24 03/08/25 lamotrigine 25 mg tablet 25 mg PO DAILY 02/09/25 03/08/25 albuterol sulfate 90 mcg/actuation 2 puff inhalation Q4H PRN 03/08/25 03/08/25 aerosol inhaler shortness of breath or wheezing aripiprazole 2 mg tablet 2 mg PO HS 03/08/25 03/08/25 Previous Rx's ?Medication ?Instructions ?Recorded nitrofurantoin 100 mg PO BID 5 days #10 caps 03/27/25 monohydrate/macrocrystals 100 mg capsule (Macrobid) Allergies Allergy/AdvReac Type Severity Reaction Status Date / Time ciprofloxacin (From Cipro) Allergy Unknown Rash Verified 03/30/25 13:39 Review of Systems ROS Status of ROS 10 or more systems reviewed and unremarkable except as noted in history and below PFSH PFSH Social History Little interest or pleasure in doing things: not at all Feeling down, depressed, or hopeless: not at all Exam Narrative Exam Narrative: Vital signs and Nursing Notes reviewed: As afebrile with a normal pulse, normal blood pressure, she is not hypoxic with pulse ox of 99% on room air General: Awake, alert, oriented, no acute distress, lying comfortably on the stretcher-sitting Kittitian style, appears comfortable HEENT: Normocephalic atraumatic, mucous membranes are moist and pink, eyes are clear, normal conjunctiva, vision is grossly intact Chest: Lungs are clear to auscultation with good air entry, there is no wheezing rhonchi or rales appreciated no accessory muscle use, patient is speaking in complete sentences-no chest wall tenderness to palpation CVS: Regular rate and rhythm S1-S2, no murmurs rubs or gallops, pulses are brisk and equal bilaterally ABD: Soft, nondistended, nontender, no rebound guarding or rigidity, bowel sounds are normal, no pulsatile masses appreciated, tenderness over the urinary bladder Extremities: Moving all extremities, no lower extremity tenderness or swelling noted Skin: Normal in appearance without rash,pallor, petechiae or purpura Neuro: No focal deficits Constitutional Vital Signs, click to edit/add: Last Vital Signs Temp 97.9 F 04/14/25 23:17 Pulse 71 04/14/25 23:17 Resp 16 04/14/25 23:17 BP 110/88 04/14/25 23:17 Pulse Ox 99 04/14/25 23:17 O2 Del Method Room Air 04/14/25 23:17 Course Vital Signs Vital signs: Vital Signs Temperature 97.9 F 04/14/25 23:17 Pulse Rate 71 04/14/25 23:17 Respiratory Rate 16 04/14/25 23:17 Blood Pressure 110/88 04/14/25 23:17 Pulse Oximetry 99 04/14/25 23:17 Oxygen Delivery Method Room Air 04/14/25 23:17 Temperature 97.9 F 04/14/25 23:17 Pulse Rate 71 04/14/25 23:17 Respiratory Rate 16 04/14/25 23:17 Blood Pressure 110/88 04/14/25 23:17 Pulse Oximetry 99 04/14/25 23:17 Oxygen Delivery Method Room Air 04/14/25 23:17 MDM - Female Genitourinary MDM Narrative Medical decision making narrative: This 19-year-old female presents for evaluation of burning with urination and burning in the left lower quadrant. She denies the possibility of and has no concerns for STDs. She states the symptoms have been present for the past 1 to 2 days but she wanted to make sure she did not have a UTI before the holidays. She was diagnosed with a hemorrhagic left ovarian cyst on March 27 but has not had a chance to follow-up with her WRAPPING CLERK yet. Clinically the patient appears comfortable has no nausea vomiting, severe abdominal pain or flank pain concerning for an ovarian torsion. Her urine is negative for infection and her test is negative. She was given a copy of her ultrasound report from her March 27 ER visit with recommendation for close follow-up with her WRAPPING CLERK. She was medicated with a dose of Tylenol prior to discharge. She was encouraged drink plenty of fluids and return to the emergency department for worsening symptoms or any concerns. Lab Data Labs: Lab Results 04/14/25 Range/Units 23:39 Urine Color Lt. yellow (YELLOW) Urine Clarity Clear (CLEAR) Urine pH 7.0 (5.0-9.0) Ur Specific Vivian <=1.005 A (1.005-1.025) Urine Protein Negative (NEG/TRACE) mg/dL Urine Glucose (UA) Negative (NEGATIVE) mg/dL Urine Ketones Negative (NEGATIVE) mg/dL Urine Occult Blood Negative (NEGATIVE) Urine Nitrite Negative (NEGATIVE) Urine Bilirubin Negative (NEGATIVE) Urine Urobilinogen 0.2 (0.2-1.0) EU/dL Ur Leukocyte Esterase Negative (NEGATIVE) Urine RBC 0-2 (0-2) #/HPF Urine WBC 2-5 A (NONE SEEN) #/HPF Ur Squamous Epith Cells Few A (NONE/RARE) #/LPF Urine Crystals None seen (None Seen) #/HPF Urine Bacteria Trace A (NONE SEEN) #/HPF Urine Casts None seen (NONE SEEN) #/LPF Urine Mucus None seen (NONE SEEN) Ur Culture Indicated? No Urine HCG, Qual Negative (NEGATIVE) Discharge Plan Discharge Chief Complaint: Urogenital-Female Clinical Impression: Dysuria, Left ovarian cyst Patient Disposition: Home, Self-Care Time of Disposition Decision: 23:55 Condition: Good Prescriptions / Home Meds: No Action hydroxyzine 25 mg capsule PO DAILY levothyroxine 25 mcg tablet 25 mcg PO DAILY lamotrigine 25 mg tablet 25 mg PO DAILY Rx Instructions: 25 mg orally 1 in am albuterol sulfate 90 mcg/actuation HFA aerosol inhaler 2 puff INHALATION Q4H PRN (Reason: shortness of breath or wheezing) aripiprazole 2 mg tablet 2 mg PO HS nitrofurantoin monohyd/m-cryst [Macrobid] 100 mg capsule 100 mg PO BID 5 Days Qty: 10 0RF Rx Instructions: must administer with a meal/food Print Language: Jamaican Instructions: Ovarian Cyst (ED), Dysuria (ED) Referrals: ANTIONETTE BENITEZ DO [Primary Care Provider] - 1 week
--- OUTSIDE RECORDS SUMMARY | 2025-04-15 00:01 | XMS_ITS | Clinical Summary ---
Author Organization [facility] Address [address] [place] [address] Phone Care Team Providers Care Director Public Policy Name Role Phone Unavailable Primary Care Provider Unavailabl e Allergies Active AllergyReactionsCriticalityNoted DateCommentsCiprofloxacinOther, UmkxbicjztqwLay25/13/2024 Heart palp, hard time breathing, shaking Other [...] Do not crush or chew. 42 capsule Expired Active Problems No known active problems Encounters DateTypeDepartmentCare KyfsVyrozgndors03/15/2025 5:55 PM ESTOffice Visit Urgent [facility] [address] [facility] [address] [place] [address] Disha Curiel PA-C Viral URI (Primary Dx); Suspected COVID-19 virus infectionfrom Last 3 Months Social History Tobacco UseTypesPacks/DayYears UsedDateSmoking Tobacco: Every DayCigarettes Smokeless Tobacco: Never Tobacco Cessation:Ready to Q uit: Not Asked; Counseling Given: Not Answered CommentsNoSex and Gender InformationValueDate RecordedSex Assigned at BirthNot on fileLegal PeuLrzozy43/26/2022 9:45 AM ESTGender IdentityNot on file Sexual OrientationNot on file Last Filed Vital Signs Vital SignReadingTime TakenCommentsBlood Pzjcmmtv819/8103/08/2025 5:59 PM EST Gxxir922103/08/2025 5:59 PM VIQFnhnkyhybdf64 ??C (98.6 ??F)03/08/2025 5:59 PM EST Respiratory Mfrj833305/08/2024 5:59 PM ESTOxygen Mrqguwhdxv79%03/08/2025 5:59 PM ESTInhaled Oxygen Concentration--Weight--Height--Body Mass Index-- Plan of Treatment Health MaintenanceDue DateLast DoneCommentsHIV Yqiawrilo94/28/2004Hearing Screening (#1)2007Pneumococcal Vaccine: Pediatrics and At-Risk Adult Patients (1 of 1 - PPSV23, PCV20, or PCV21), 07/16/2004, 03/15/2004, Additional history existsHepatitis C Wbvuqfhru46/28/2022HPV/Cotest 5COVID-19 Vaccine ( - season)2024Influenza Vaccine (#1) /05/2020, 02/10/2020, 02/13/2018, Additional history existsYearly Adult Jbidjrhi90/06/2024, 11/30/2023, 02/23/2021, Additional history existsTSH Level10610/ervical Cancer Tgejqmazv59/03/2028Pap Smear Lipid Panel, 2DTaP/Tdap/Td Vaccines (8 - Td or Tdap)/11/2023, 12/02/2013, 10/22/2007, Additional history existsZoster Vaccines (1 of 2), 10/21/2004Hepatitis B PstccgqbNmddqpyju83/05/2005, 04/28/2004, 03/15/2004, Additional history existsHIB WvnvqyllDxjfgguqn11/28/2005, 04/28/2004, 03/15/2004, Additional history existsIPV CnocdyayDqqgfrmng87/30/2008, 04/28/2004, 04/28/2004, Additional history existsMMR VaccinesCompleted 10/22/2007, 01/19/2005Hepatitis A PcttgrbrShfwaehty93/02/2013, 01/17/2012HPV HdgjgnfyLdscdekqk42/23/2018, 02/13/2017Meningococcal EfnvyxpHmvuzzkbz69/19/2020, 03/23/2015Meningococcal B CwcmzxrPoriaepmk91/23/2020, 02/10/2020Chlamydia ScreeningDiscontinuedRotavirus VaccinesAged OutNo longer eligible based on patient's age to complete this topic Procedures Procedure NamePriorityDate/TimeAssociated DiagnosisCommentsSPOTFIRE R/ST PANEL MINI W/VWMRTKxrsapj76/15/2025 6:21 PM EST Suspected COVID-19 virus infection LIPID IDLWJTlbzdwa93/27/2022 7:35 AM EDT from Last 3 Months or Most Recently Relevant to Health Maintenance Results * POCT SPOTFIRE R/ST Panel [facility] w[facility] manually resulted (03/08/2025 6:21 PM EST)ComponentValueRef RangeTest MethodAnalysis Time Performed AtPathologist SignaturePOC Sars-Cov-2 PCRNegativeNegativePOC Respiratory Syncytial Virus PCRNegativeNegativePOC Influenza A Virus PCR NegativeNegativePOC Influenza B Virus PCRNegativeNegativePOC Human Rhinovirus PCRNegativeNegativeSpecimen (Source)Anatomical Location / LateralityCollection Method / VolumeCollection TimeReceived HootZjyn46/15/2025 6:21 PM EST Narrative Authorizing ProviderResult TypeResult StatusArcarolina KERNOINT OF CARE TEST ENTER/EDIT ORDERABLESFinal Result * Lipid Panel (12/18/2021 7:35 AM EDT)ComponentValueRef RangeTest MethodAnalysis TimePerformed AtPathologist TobiyecsyMyukbdgdewk6746 - 199 mg/dLBAYLEY SETON HOSPITAL LABComment: . ?AGE ?DESIRABLE ?? BORDERLINE [...] be performed immediately prior to Metamizole dosing. HDL50.4mg/dLBAYLEY SETON HOSPITAL LABComment: . ?AGE ?VERY LOW ?? LOW ? NORMAL ?HIGH ?? 0-19 Y < 35 < 40 40-45 ---- 20-24 Y ---- < 40 >45 ---- >24 Y ---- < 40 40-60 >60 . Cholesterol/HDL Ratio2.3GCONEY ISLAND HOSPITAL LABComment: REF VALUES DESIRABLE < 3.4 HIGH RISK > 5.0 BWO083 - 109 mg/dLBAYLEY SETON HOSPITAL LABComment: . ? NEAR ?BORD ?AGE ?DESIRABLE ??OPTIMAL ?HIGH ? HIGH ? VERY HIGH 0-19 Y 0 - 109 --- 110-129 >/= 130 ---- 20-24 Y 0 - 119 --- 120-159 >/= 160 ---- >24 Y 0 - 99 100-129 130-159 160-189 >/=190 . VLDL60 - 40 mg/dLBAYLEY SETON HOSPITAL QLSCzeqxooifoeaf637 - 149 mg/dLBAYLEY SETON HOS[facility]ITAL LABComment: . ?AGE ?DESIRABLE ?? BORDERLINE [...] immediately prior to Metamizole dosing. Non HDL Oryzudryuqe347 - 119 mg/dLBAYLEY SETON HOSPITAL LABComment: ?AGE ?DESIRABLE ?? BORDERLINE HIGH [...] MDLAB BLOOD ORDERABLESFinal ResultPerforming OrganizationAddressCity/State/ZIP CodePhone Number [facility] [address] [place] [address] from Last 3 Months or Most Recently Relevant [place] [id number]
--- OUTSIDE RECORDS SUMMARY | 2025-04-15 00:01 | XMS_ITS | Clinical Summary ---
Author Organization gate[facility] tem Address [facility] [id number] [address] [place] [address] Care Team Providers Care Crt Name Role Phone Ref Prov, Not In [...] 21 tablet 1205Active Active Problems ProblemNoted DateDiagnosed OwczUsmjudh48/26/2025Trichotillomania in pediatric svxevdi6002/13/20174831Fexkvti85/04/2016 Encounters DateTypeDepartmentCare SivqWgytfaxfxto93/17/2025 8:24 PM EST - 03/10/2025 9:26 PM [facility] [address] [facility] [id number] Reji Martin DO Chest tightness (Primary Dx) Discharge Disposition: Home03/10/20256702Gsswdg32/13/2025 7:41 PM EST - 03/06/2025 7:44 PM [facility] [address] [place] [id number] Zachary Steele MD Discharge Disposition: Left Without Treatmentfrom Last 3 Months Immunizations ImmunizationAdministration DatesNext FzzCKqI7510/22/2007,04/20/2005,04/28/2004, 03/15/2004,01/06/2004HPV91,02/13/2017Hep B, Adolescent or Pediatric 04/28/2004,03/15/2004,01/06/2004,2003Hepatitis A010/23/2012,01/17/2012HiB 01/19/2005,04/28/2004,03/15/2004,01/06/2004IPV10/22/2007,04/28/2004,03/15/2004, 01/06/2004Influenza LAIV (Nasal)02/10/2020Influenza, Injectable, quadrivalent (PF)02/23/2021,02/13/2018,02/13/2017Influenza, Pmbnbgjfeda58/18/2016,03/23/2015, 02/04/2006MMR10/22/2007,01/19/2005Meningococcal B, Omv105/16/2019,02/10/2020 Meningococcal Wvbnqnicj84/19/2020,03/23/2015Pneumococcal Conjugate 13-Valent 10/21/2004,07/16/2004,03/15/2004,01/06/2004Tdap11/30/2023,12/02/2013Varicella 10/22/2007,10/21/2004 Family History Medical HistoryRelationNameCommentsDepressionBrotherHyperthyroidismBrother Learning disabilitiesBrotherMental illnessBrotherHypertensionFatherMental illnessFatherAtrial fibrillationMaternal GrandmotherHypothyroidismMotherMental illnessMotherRelationNameStatusCommentsBrotherAliveFatherAliveMaternal GrandmotherAliveMotherAlive Social History Tobacco UseTypesPacks/DayYears UsedDateSmoking Tobacco: FormerCigarettes0.51.2 Started: 01/2024Smokeless Tobacco: NeverAlcohol UseStandard Drinks/WeekComments Yes0 (1 standard drink = 0.6 oz pure alcohol)sociallyPHQ-2AnswerDate Recorded Total Kdytz5893/23/2018ChildcareAnswerDate ZczsrppsYcnrnoeftKnwdiqa42/10/2019 EmploymentAnswerDate ZyqpnuyxCxjuvzxpwpAvfupjg03/10/2019Hunger ScreeningAnswer Date RecordedWithin the past 12 months we worried whether our food would run out before we got money to buy more.Never True03/10/2025Within the past 12 months the food we bought just didn't last and we didn't have money to get more.Never True03/10/2025Purpose - LifeAnswerDate RecordedPurpose and direction in life Tfovbbs53/10/2021CommentsNoSex and Gender InformationValueDate Recorded Sex Assigned at BirthNot on fileLegal XaqMxyyal58/04/2015 3:17 PM EDTGender IdentityNot on fileSexual OrientationNot on file Last Filed Vital Signs Vital SignReadingTime TakenCommentsBlood Fxzzrcnz983/7403/10/2025 9:26 PM EST Cszng952103/10/2025 9:26 PM PKOQspwxnfilnb32.1 ??C (97 ??F)03/10/2025 6:56 PM EST Respiratory Cugj545105/10/2024 9:26 PM ESTOxygen Kyfumdwdxm29%03/10/2025 9:26 PM ESTInhaled Oxygen Concentration--Hediod96.8 kg (165 lb)03/10/2025 6:56 PM EST Blgwes895.3 cm (5' 9 )03/10/2025 6:56 PM ESTBody Mass Index24.37105/10/2024 6:56 PM EST Plan of Treatment Health MaintenanceDue DateLast DoneCommentsDepression Mwyzrwlbu17/08/2025 11/30/2023OVID-19 Vaccine ( season)501/, 09/02/2020, 08/12/2020Influenza Mjtuvch74/01/051582/05/2020, 02/10/2020, 02/13/2018, Additional history existsChlamydia Pbpyeumed55/12/2024, 12/19/2024, 10/24/2024, Additional history existsAdult BMI Cmrjjeaps96/ Tobacco Dtrxeynvz75Pap Smear/06/2024, 02/07/2024 DTaP,Tdap and Td Vaccines (8 - Td or Tdap)/11/2023, 12/02/2013, 10/22/2007, Additional history exists Medical Devices Not on file Procedures Procedure NamePriorityDate/TimeAssociated DiagnosisCommentsECG 12-LEADSTAT 03/10/2025 9:04 PM ESTXR CHEST 2 SIORXUS06/17/2025 8:34 PM EST SARS/FLU A+B/RSV BY NAAT/MOLECULAR (M4RT COLLECTION TUBE)STAT105/10/2024 7:01 PM EST THIN PREP PAP ZCRAHjxrcjn85/03/2025 2:51 PM EDT Well woman exam with routine gynecological exam CHLAMYDIA/GC BY PCR JOAO QIYYIhobedd83/03/2025 2:51 PM EDT Unprotected sexual intercourse from [...] 8:43 PM Authorizing ProviderResult TypeResult StatusMaxsabino Martin [facility] DIAGNOSTIC IMAGING ORDERABLESFinal Result * SARS/FLU A+B/RSV by NAAT/Molecular (M4RT Collection Tube) (03/10/2025 7:01 PM EST)ComponentValueRef RangeTest MethodAnalysis TimePerformed AtPathologist SignatureFLU A LNXHwmfgrrzWrmtdril34/17/2025 7:45 PM ESTPROMEDICA [facility] HOSPITALFLU B GCYQhaurybzWpkkgzzt52/17/2025 7:45 PM ESTPROMEDICA DESERT REG[facility]AL MEDICAL CENTERRSV BY KPSSrjhcaaxModxmuru31/17/2025 7:45 PM EST [facility] COV 2 BY PCRNot DetectedNot Detected 03/10/2025 7:45 PM ESTPROMEDICA WEST VALLEY HOSPITAL AND HEALTH CENTERpecimen (Source) Anatomical Location / LateralityCollection Method / VolumeCollection Time Received TimeSwabNasopharyngeal structure / Vkraxts1603/10/2025 7:01 PM EST 03/10/2025 7:07 PM EST Ac [facility] - 03/10/2025 7:45 PM EST The Xpert [...] operators who are performing tests using either [employer] DX or [employer] systems and is limited to laboratories that [...] repeat. Fact Sheet for Healthcare Providers: ?? https://www.fda.gov/media/395278/download ? Fact Sheet for Patients: ?? https://www.fda.gov/media/456077/download ?? Authorizing ProviderResult TypeResult StatusMaxsabino Martin DOMICROBIOLOGY - GENERAL ORDERABLESFinal ResultPerforming OrganizationAddressCity/State/ZIP CodePhone Number [facility] [address] [place] [place] [address], [place] * Thin Prep Pap Test (10/24/2024 2:51 PM EDT)ComponentValueRef RangeTest Method Analysis TimePerformed AtPathologist SignatureCase ReportGynecologic Cytology Report ? Case: [id number] ? Authorizing Provider: ??Yenny Lozano MD ?Collected: ? 10/24/2024 1451 ? Ordering Location: ? [facility] ? Received: ?10/24/2024 1452 ? Obstetrics/Gynecology ? First Screen: ?Aissatou Howell, CT(ASCP) ? Rescreen: ?Thang Willson, ? CT(ASCP) ? Specimen: ?Thin Prep Pap, Cervix/Endocervix ? 10/28/2024 3:31 PM [facility] LABORATORYSpecimen Adequacy Satisfactory for evaluation, endocervical/transformation zone component absent 10/28/2024 3:31 PM [facility] LABORATORYInterpretationNEGATIVE FOR INTRAEPITHELIAL LESION OR MALIGNANCYNEGATIVE FOR INTRAEPITHELIAL LESION OR MALIGNANCY, UNSATISFACTORY, EPITHELIAL CELL ABNORMALITY, GLANDULAR EPITHELIAL CELL ABNORMALITY. , SQUAMOUS EPITHELIAL CELL ABNORMALITY, NO DIAGNOSIS RENDERED. 10/28/2024 3:31 PM [facility] at 1531 EDTOther FindingsFungal organisms morphologically consistent with Tara species are present.10/28/2024 3:31 PM [facility] LABORATORYAdditional InformationThe Pap test is a screening test with an inherent, but low, probability of error. The Pap test is primarily effective for the diagnosis and prevention of squamous cell carcinoma. Regular screening iscritical for prevention. ThinPrep liquid-based slides, which meet the Sustainability Director criteria for automated screening, have been screened by the ThinPrep Imaging System (as of 01/08/07) along with an additional manual rescreening by a chest painting and sealing supervisor and, if indicated, by a pathologist.10/28/2024 3:31 PM [facility] LABORATORYClinical Informationannual with pap10/28/2024 3:31 PM [facility] LABORATORYEmbedded Avruwj2210/28/2024 3:31 PM [facility] LABORATORYSpecimen (Source)Anatomical Location / LateralityCollection Method / VolumeCollection TimeReceived TimeThinPrep cytology technique (qualifier value) (Cervix/Endocervix)10/24/2024 2:51 PM EDT10/24/2024 2:52 PM EDT Narrative Authorizing ProviderResult TypeResult StatusTiflety Monte Blake MDPATHOLOGY/CYTOLOGY ORDERABLESFinal ResultPerforming OrganizationAddressCity/State/ZIP CodePhone Number [facility] [address] [place] [address], * Chlamydia/GC by PCR Joao Swab (10/24/2024 2:51 PM EDT)ComponentValueRef Range Test MethodAnalysis TimePerformed AtPathologist SignatureCHLAMYDIA DNA(PCR) DvwsfsrzCymearyr97/04/2025 10:55 AM [facility] Comment:Chlamydia trachomatis not detected by nucleic acid amplification. This does not exclude the possibility of infection because results are dependent on adequate specimen collection.GONORRHOEAE DNA(PCR)RioxrtnhIiqcprgy60/04/2025 10:55 AM [facility] LABORATORYComment:Neisseria gonorrhoeae not detected by nucleic acid amplification. This does not exclude the possibil ity of infection because results are dependent on adequate specimen collection.Specimen (Source)Anatomical Location / LateralityCollection Method / VolumeCollection TimeReceived TimeSwabVaginal structure / Fiphweo4410/24/2024 2:51 PM EDT10/24/2024 2:52 PM EDT Narrative Authorizing ProviderResult TypeResult StatusTiflety Lozano MDMICROBIOLOGY - GENERAL ORDERABLESFinal ResultPerforming OrganizationAddressCity/State/ZIP Code Phone Number [facility] [address] [place] [address], [place] [phone] from Last 3 Months or Most Recently Relevant to Health Maintenance Insurance * Guarantor: Trice StallworthAccount TypeRelation to PatientDate of BirthPhoneBilling AddressPersonal/XblghpPbww28/28[birth year][address] [place] [address] Care Teams Team MemberRelationshipSpecialtyStart DateEnd Date Ref Prov, [place] [address] PCP - General06/21/24
--- OUTSIDE RECORDS SUMMARY | 2025-04-15 00:01 | XMS_ITS | Encounter Summary ---
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 Name Role Phone Liam Douglas DO Primary Care Provider [phone] Source Comments In the event this information is protected by the Federal Confidentiality of Alcohol and Drug AbusePatient Records regulations: The Federal rules restrict any use of the information to criminally investigate or prosecute any alcohol or drug abuse patient.[facility] Reason for Visit * ReasonCommentsimaging results from [facility] Encounter Details DateTypeDepartmentCare Team (Latest Contact Info)Ydczcrrsodj33/10/2025bstract Family Medicine [address] [address] Liam Douglas DO [address] [place] [id number] imaging results from [facility] Social History Tobacco UseTypesPacks/DayYears UsedDateSmoking Tobacco: FormerCigarettes [...] the phone with family, friends, or neighbors?Patient ziejjiiy82/12/2025How often do you get together with friends or relatives?Twice a week05/05/2024How often do you attend spiritism or hinduism services?Patient csuxnuyn67/12/2025Do you belong to any clubs or organizations such as spiritism groups, unions, [employer] or athletic el ups, or school groups?No05/05/2024How often do you attend meetings of the clubs or organizations you belong to?Patient nqcpbzuq30/12/2025re you , , , , never , or living with a partner?Never rzepnwq1605/05/2024UDIT-CAnswerDate RecordedQ1: How often do you have a drink containing alcohol?Patient cchdmibq72/12/2025Q2: How many drinks containing alcohol do you have on a typical day when you are drinking?Patient does not drink05/05/2024Q3: How often do you have six or more drinks on one occasion? Never05/05/2024Overall Financial Resource Strain (CARDIA)AnswerDate RecordedHow hard is it for you to pay for the very basics like food, housing, medical care, and heating?Patient iefshult36/12/2025PHQ-2AnswerDate RecordedPHQ-2 score2 03/18/2025[facility] [place] of Occupational Health - Occupational Stress QuestionnaireAnswerDate [...] before you got the money to buymore.Patient pemkmvnb85/12/2025Within the past 12 months, the food you bought just didn't last and you didn't have money to get more. Patient zalsopyz18/12/2025PRAPARE - TransportationAnswerDate RecordedIn the past 12 months, [...] pay the mortgage or rent on time?Patient cdjopzlv39/12/2025Number of Times Moved in the Last YearNot on file05/05/2024Homeless in the Last YearNot on file05/05/2024rea Deprivation IndexAnswerDate RecordedNational Score (1-100), lower number is lower risk76 06/18/2024State Score (1-10), lower number is lower ytyv65506/18/2024Data from: https://www.neighborhoodatlas.[facility].edu/. Last address used for wim[address]ikmnru[address]06/18/2024CommentsNoSex and Gender InformationValueDate RecordedSex Assigned at BirthNot on fileLegal SexFemale 03/27/2024 1:47 PM ESTGender IdentityNot on fileSexual OrientationNot on file documented as of this encounter Progress Notes * Mena Norwood MA - 04/02/2025 4:52 PM EST Patient records received via electronic fax. Uploaded to [employer] via [employer]. Please review in scanned documents tab of chart review. Cuco San MA Scan on 04/01/2025 10:26 AM by ProviderSukhdeep PA-C: 03/27/25 CT abd pelvis w/con [facility] Scan on 04/01/2025 9:43 AM by Provider, External, PA-C: 03/27/25 US pelvis transvaginal-[facility] documented in this encounter Plan of Treatment DateTypeDepartmentCare Team (Latest Contact Info)Myywzmjfenf39/30/2025 8:40 AM ESTOffice Visit Family [facility] [address] [place], [place] [id number] Liam Douglas DO [address] [place], [place] [id number] Muscle Relaxers aren???t working to help with severe head paindocumented as of this encounter Visit Diagnoses Not on filedocumented in this encounter Care Teams Team MemberRelationshipSpecialtyStart DateEnd Date Liam Douglas DO [address] [place] [address] PCP - GeneralFamily Lcsgifjo34/13/24documented as of this encounter
--- OUTSIDE RECORDS SUMMARY | 2025-04-15 00:01 | XMS_ITS | Clinical Summary ---
Author Organization [facility] Address [address] [place] [id number] Care Team Providers Care Press Shop Supervisor Name Role Phone Liam Douglas Primary Care Provider [phone]- [phone] Allergies No known active allergies Medications * [...] 5Active Active Problems ProblemNoted DateDiagnosed DateBorderline personality epzopnkg23/29/2025 Kbtpgwwkl61/29/2025acterial zcighfqkt28/29/2025Urinary tract infection 12/20/2024Eating disorder, lxkdkhvrdfy96/29/9560Iebwyojpomwrvb99/29/2025 Resolved Problems ProblemNoted DateDiagnosed DateResolved DateSuicidal vuxvfedt51/26/2025 12/20/2024 Social History Tobacco UseTypesPacks/DayYears UsedDateSmoking Tobacco: NeverSmokeless Tobacco: NeverAlcohol UseStandard Drinks/WeekCommentsNot Currently0 (1 standard drink = 0.6 oz pure alcohol)[facility] UtilitiesAnswerDate RecordedIn the past 12 months has the electric, gas, oil, or water company threatened to shut off services in your home?No12/18/2024Humiliation, Afraid, Rape, and Kick questionnaireAnswerDate RecordedWithin the last year, have you been afraid of your partner or ex-partner?Patient icggtthd21/27/2025Within the last year, have you been humiliated or emotionally abused in other ways by your partner or ex-partner? Patient rxziaveo73/27/2025Within the last year, have you been kicked, hit, slapped, or otherwise physically hurt by your partner or ex-partner?Patient oziapzqy52/27/2025Within the last year, have you been raped [...] times a week12/18/2024How often do you attend adventism or faith services?Patient xbuswwim31/27/2025Do you belong to any clubs or organizations such as adventism groups, unions, fraternal or athletic groups, or school groups?Patient gsdmyoyw26/27/2025How often do you attend meetings of the clubs or organizations you belong to?Patient naiheoip17/27/2025 Are you , , , , never , or living with a partner?Never egbnfbc3812/18/2024UDIT-CAnswerDate RecordedQ1: How often do you have a drink containing alcohol?Patient unable to gchlxf7112/18/2024Q2: How many drinks containing alcohol do you have on a typical day when you are drinking? Patient unable to gryvop4812/18/2024Q3: How often do you have six or more drinks on one occasion?Patient unable to bzzbrh1912/18/2024Overall Financial Resource Strain (CARDIA)AnswerDate RecordedHow hard is it for you to pay for the very basics like food, housing, medical care, and heating?Not hard at all12/18/2024 PHQ-2AnswerDate RecordedPatient Health Questionnaire-2 Pfhzz710Finheber [facility] [place] of Occupational Health - Occupational Stress QuestionnaireAnswerDate RecordedDo you feel stress - tense, restless, nervous, or anxious, or unable to sleep at night because yourmind is troubled all the time - these days?To some ihpifs9612/18/2024Exercise Vital SignAnswerDate RecordedOn average, how many days per week do you engage in moderate to strenuous exercise (like a brisk walk)? Patient mzrgokrt86/27/2025On average, how many minutes do you engage in exercise at this level?Patient detggpbv57/27/2025Hunger Vital SignAnswerDate Recorded Within the past 12 [...] were you homeless or living in a intermediate (including now)?No12/18/2024EducationAnswerDate RecordedWhat is the highest level of school you have completed or the highest degree you have received?Some college, no ucsjqo5312/18/2024CommentsUnknownSex and Gender InformationValueDate RecordedSex Assigned at BirthNot on fileLegal SexFemale 03/16/2024 4:57 AM ESTGender IdentityNot on fileSexual OrientationNot on file 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 Not on fileNot on file Last Filed Vital Signs Vital SignReadingTime TakenCommentsBlood Abpwrchr039/7708 8:08 AM EDT Krnta141112/20/2024 8:08 AM XHTUmrpjvkewkm15.7 ??C (98.1 ??F)12/20/2024 8:08 AM EDTRespiratory Voub956412/20/2024 8:08 AM EDTOxygen Hlbulwhykt169%12/20/2024 8:08 AM EDTInhaled Oxygen Concentration--Isnetm48 kg (130 lb)12/17/2024 10:25 PM EDT Zkdmii516.6 cm (5' 4 )12/17/2024 10:25 PM EDTBody Mass Index22.31012/17/2024 10:25 PM EDT Plan of Treatment Health MaintenanceDue DateLast DoneCommentsHIV Jskpihexi17/28/2004Hepatitis C Qezokrpjs69/28/2022OVID-19 Vaccine ( season)/, 09/02/2020, 08/12/2020Influenza Vaccine (#1)/05/2020, 02/10/2020, 02/13/2018, Additional history existsDepression Cgbytfqeqb96/27/528922/ TSH Level10/064247/12/2024Pap Smear07/03/615689/06/2024DTaP/Tdap/Td Vaccines (8 - Td or Tdap)/11/2023, 12/02/2013, 10/22/2007, Additional history existsZoster Vaccines (1 of 2), 10/21/2004RSV Immunization for Adults (1 - 1-dose 75+ series)10/19/2078Hepatitis B VaccinesCompleted 04/28/2004, 04/28/2004, 03/15/2004, Additional history existsPneumococcal Vaccine: Pediatrics (0 to 5 Years) and At-Risk Patients (6 to 49 Years)Completed 10/21/2004, 07/16/2004, 03/15/2004, Additional history existsHIB Vaccines Txzhgewbq83/28/2005, 04/28/2004, 03/15/2004, Additional history existsIPV SuvaadzuFbxvdkrnm44/30/2008, 04/28/2004, 04/28/2004, Additional history exists MMR PownlqjfGfoprothd46/30/2008, 01/19/2005Varicella VaccinesCompleted 10/22/2007, 10/21/2004Hepatitis A MwqotvxxIqakrqbpa86/02/2013, 01/17/2012HPV AcuvbotjXvhwdftfd98/23/2018, 02/13/2017Meningococcal GumresqHyikbsisj55/19/2020, 03/23/2015Meningococcal B CjwlduzFeoxmyidh51/23/2020, 02/10/2020RSV Immunization under 20 MonthsAged OutNo longer eligible based on patient's age to complete this topicRotavirus VaccinesAged OutNo longer eligible based on patient's age to complete this topic Insurance Advance Directives * Full Code (Latest Code Status on File) Date ActivatedDate InactivatedComments12/17/2024 11:27 PM12/20/2024 8:56 PM Care Teams Team MemberRelationshipSpecialtyStart DateEnd Date Liam Douglas DO [address] [place] [address] [facility]12/17/24
--- OUTSIDE RECORDS SUMMARY | 2025-04-15 00:01 | XMS_ITS | Clinical Summary ---
Author Organization [facility] Address [address] [place], [place] [address] Care Team Providers Care Death Clearance Coordinator Name Role Phone Liam Douglas Primary Care Provider [phone] Allergies Active AllergyReactionsCriticalityNoted DateCommentsCiprofloxacinOther: See Azwbhxgk80/13/2024 Heart palp, hard time breathing, shaking Medications MedicationSigDispense QuantityRefillsLast FilledStart DateEnd DateStatus hydrOXYzine HCl (ATARAX) 25 mg tablet Take 25 mg by mouth two times a day as needed.Active naproxen (NAPROSYN) 500 mg tablet Indications:Cervicogenic headacheTake 1 tablet by mouth once daily as needed (Headache). 30 tablet 5Active levothyroxine (SYNTHROID) 25 mcg tablet Indications:Subclinical hypothyroidismTake 1 tablet by mouth once daily. 90 tablet 506Active lamoTRIgine (LAMICTAL) 25 mg tablet Take 25 mg by mouth as directed.Active OLANZapine (ZYPREXA) 2.5 mg tablet Take 2.5 mg by mouth.5Active tiZANidine (ZANAFLEX) 2 mg tablet Indications:Cervicogenic headacheTake 1 tablet by mouth once daily as needed. 30 tablet 5Active Active Problems ProblemNoted DateDiagnosed DatePanic fyxuign2703/18/2025ipolar tzvldiab10/17/2025 Vasovagal ohkxiwt0405/07/2024Sinus kephlnjjzvc36/14/2025Subclinical hypothyroidism 05/07/2024ervicogenic ogkgjrvv92/14/2025orderline personality disorder 04/05/20241907Cxehsct36/04/2016 Encounters DateTypeDepartmentCare ThivAskgzcvmxkh69/10/20[facility] [address] [place] [address] Liam Douglas, DO imaging results from [facility]03/25/2025 Patient [facility] [address] [place] [address] Liam Douglas, DO Appointment Snjwatg8703/24/20[facility] [address] [place] [address] Liam Douglas, DO ED [facility] consult-Kqcofvhm51/25/2025 9:00 AM [facility] [address] [place] [address] Liam Douglas, Cervicogenic headache (Primary Dx); Panic attacks; JESSI (generalized anxiety disorder); Borderline personality disorder (HCC); Screening for bkrqergyej93/23/1804Ysavje01/11/2025Refill [facility] [address] [place] [address] Liam Douglas, DO Refill Kgryybi6302/09/2025[facility] Triage NURSE SPORTS MEDICINE SPECIALIST [address] [place] [address] Cuc[address] Morales RN Frgneojxmrdh87/19/2025 Patient [facility] [address] [place] [address] Liam Douglas, DO Appointment Requestfrom Last 3 Months Immunizations ImmunizationAdministration DatesNext DueHaemophilus influenzae b (Hib) vaccine, unspecified mmaielaywlb16/28/2005,04/28/2004,03/15/2004,01/06/2004diphtheria tetanus pertussis (DTaP) vaccine, pediatric (INFANRIX)10/22/2007,04/20/2005, 04/28/2004,03/15/2004,01/06/2004hepatitis A (HepA) vaccine, adult (HAVRIX, VAQTA)10/23/2012,01/17/2012hepatitis B (HepB) vaccine, 3-dose series, age 0 yr - 19 yr (ENGERIX B-PEDS, RECOMBIVAX HB-PEDS)04/28/2004,03/15/2004,01/06/2004, 2003human papillomavirus (HPV9) vaccine, 9 valent (GARDASIL 9)02/13/2018, 02/13/2017influenza (IIV4) vaccine, age 6 mo - 64 yr, quadrivalent, PF (AFLURIA, FLUARIX, FLULAVAL, FLUZONE)02/23/2021,02/13/2018,02/13/2017influenza (LAIV4) vaccine, quadrivalent, live, intranasal (FLUMIST)02/10/2020influenza vaccine, unspecified cprdyoznpju37/18/2016,03/23/2015,02/04/2006measles mumps rubella (MMR) vaccine (M-M-R II, PRIORIX)10/22/2007,01/19/2005meningococcal (MenACWY- CRM) vaccine, quadrivalent (MENVEO)02/10/2020,03/23/2015meningococcal B (MenB- 4C) vaccine (BEXSERO)03/16/2020,02/10/2020pneumococcal conjugate (PCV13) vaccine, 13 valent (PREVNAR 13)10/21/2004,07/16/2004,03/15/2004,01/06/2004 poliovirus (IPV) vaccine, inactivated (IPOL)10/22/2007,04/28/2004,03/15/2004, 01/06/2004tetanus diphtheria pertussis (Tdap) vaccine, age 7+ yr (ADACEL, BOOSTRIX)11/30/2023,12/02/2013varicella (BÁRBARA) vaccine (VARIVAX)10/22/2007, 10/21/2004 Family History Medical HistoryRelationCommentsEssential TremorBrotherHyperthyroidismBrother HypertensionFatherDiabetesMaternal Grandfatherunknwin typeDiabetesMaternal Grandmotherunknown typeBreast CancerMaternal Great AuntThyroid CancerMaternal cousinHashimoto DiseaseMotherThyroidMotherunknown typeHypertensionPaternal GrandfatherLeukemiaPaternal GrandmotherUnknown typeeagles syndromePaternal GrandmotherCervical CancerNo Family HistoryColon CancerNo Family HistoryRelation StatusCommentsBrotherAliveFatherAliveMaternal GrandfatherAliveMaternal GrandmotherAliveMaternal Great AuntAliveMaternal cousinAliveMotherAlivePaternal GrandfatherAlivePaternal GrandmotherAlive Social History Tobacco UseTypesPacks/DayYears UsedDateSmoking Tobacco: FormerCigarettes Smokeless Tobacco: Never Tobacco Cessation:Counseling Given: Not Answered Alcohol UseStandard Drinks/WeekCommentsYes0 (1 standard drink = 0.6 oz pure alcohol)sociallyAHC UtilitiesAnswerDate RecordedIn the past 12 months has the [employer], gas, oil, or water [employer] threatened to shut off services in your home?No05/05/2024Social Connection and Isolation PanelAnswerDate RecordedIn a typical week, how many times do you talk on the phone with family, friends, or neighbors?Patient /12/2025How often do you get together with friends or relatives?Twice a week05/05/2024How often do you attend hinduism or yazidi services?Patient pqvizfmp84/12/2025Do you belong to any clubs or organizations such as hinduism groups, unions, fraternal or athletic groups, or school groups?No 05/05/2024How often do you attend meetings of the clubs or organizations you belong to?Patient lyvrduxl20/12/2025re you , , , , never , or living with a partner?Never ydsakzu7405/05/2024 AUDIT-CAnswerDate RecordedQ1: How often do you have a drink containing alcohol? Patient kfcokxwz37/12/2025Q2: How many drinks containing alcohol do you have on a typical day when you are drinking?Patient does not drink05/05/2024Q3: How often do you have six or more drinks on one occasion?Never05/05/2024Overall Financial Resource Strain (CARDIA)AnswerDate RecordedHow hard is it for you to pay for the very basics like food, housing, medical care, and heating?Patient byiobtds41/12/2025PHQ-2AnswerDate RecordedPHQ-2 ezdfb32005/18/2024[facility] [place] [facility] - Occupational Stress QuestionnaireAnswerDate [...] before you got the money to buymore.Patient lnbnyode91/12/2025Within the past 12 months, the food you bought just didn't last and you didn't have money to get more.Patient ukvqiwok60/12/2025PRAPARE - TransportationAnswerDate RecordedIn the past 12 months, [...] pay the mortgage or rent on time?Patient nnutzpgu99/12/2025Number of Times Moved in the Last YearNot on file05/05/2024 Homeless in the Last YearNot on file05/05/2024rea Deprivation IndexAnswerDate RecordedNational Score (1-100), lower number is lower pffi381606/18/2024State Score (1-10), lower number is lower wuvn23206/18/2024Data from: https://www.neighborhoodatlas.medicine.[facility].edu/. Last address used for tfprsnssant[address]06/18/2024CommentsNoSex and Gender InformationValueDate RecordedSex Assigned at BirthNot on fileLegal SexFemale 03/27/2024 1:47 PM ESTGender IdentityNot on fileSexual OrientationNot on file Last Filed Vital Signs Vital SignReadingTime TakenCommentsBlood Xudkfhik087/7901/08/2025 10:51 AM EDT Ukqsf376301/08/2025 10:51 AM OPNTnxkpsqrfnl47.7 ??C (98.1 ??F)01/08/2025 10:51 AM EDTRespiratory Rate--Oxygen Zjsyetygms46%01/08/2025 10:51 AM EDTInhaled Oxygen Concentration--Nkxlrq55.9 kg (160 lb 11.5 oz)01/08/2025 10:51 AM ERIKxqqyd056.3 cm (5' 9.02 )03/18/2025 9:08 AM ESTBody Mass Index23.72008/29/2024 11:26 AM EDT Plan of Treatment DateTypeDepartmentCare Team (Latest Contact Info)Trhofxhrywk09/30/2025 8:40 AM ESTOffice Visit Family Medicine [place] [phone] Liam Douglas N, DO [address] [place] [address] Muscle Relaxers aren???t working to help with severe head painHealth Maintenance Due DateLast DoneCommentsPeds To Adult Transition Initial Dcjajmkgin99/28/2016 Peds To Adult Transition Annual Nwnnigcdop97/28/2018HIV Edigcfdqk55/28/2022 Hepatitis C Glcvabtri98/28/2022Covid-19 Vaccine ( season)2024 Influenza Vaccine (#1)/05/2020, 02/10/2020, 02/13/2018, Additional history existsChlamydia Screening (18-24)/12/2024, 07/08/2024GC (Gonorrhea) Screening (18-24), 03/17/2025Annual PCP Team Chronic Disease Visit6105/18/2024Depression Goiekgwaa12/25/2026 03/18/2025ervical Cancer Ftxvbwpye66DTaP,Tdap,Td Vaccine (8 - Td or Tdap)/11/2023, 12/02/2013, 10/22/2007, Additional history existsHepatitis B JwsjlnzPsdysshth70/05/2005, 03/15/2004, 01/06/2004, Additional history existsHPV UizhkbbBkqnmtgnb51/23/2018, 02/13/2017Meningococcal B Vaccine Cdhqhpjar57/23/2020, 02/10/2020 Procedures Procedure NamePriorityDate/TimeAssociated DiagnosisCommentsEXTERNAL IMAGING 04/01/2025 10:26 AM EST EXTERNAL RPIQOFJ7204/01/2025 9:43 AM EST FERRITIN DIZTstvecc05/09/2025 11:39 AM EDT Fatigue, unspecified type IRON + TSENAhkyesv10/09/2025 11:39 AM EDT Fatigue, unspecified type VITAMIN B12 WFKIAQcnrxtb25/09/2025 11:39 AM EDT Fatigue, unspecified type TSH EZFPwdvnwp38/09/2025 11:39 AM EDT Fatigue, unspecified type TARA/TRICHOMONAS LAETLrstmeu01/09/2025 11:39 AM EDT Chlamydia Bacterial vaginosis GONORRHEA/CHLAMYDIA RQANBulvtgo35/09/2025 11:39 AM EDT Chlamydia Bacterial vaginosis from Last 3 Months Results * EXTERNAL IMAGING (04/01/2025 10:26 AM EST)Anatomical RegionLateralityModality Other Narrative Authorizing ProviderResult TypeResult StatusExternal Provider PA-CRADIOLOGYFinal Result * EXTERNAL IMAGING (04/01/2025 9:43 AM EST)Anatomical RegionLateralityModality Other Narrative Authorizing ProviderResult TypeResult StatusExternal Provider PA-CRADIOLOGYFinal Result * TARA/TRICHOMONAS NAAT (01/30/2025 11:39 AM EDT)ComponentValueRef RangeTest MethodAnalysis TimePerformed AtPathologist SignatureCandida species group RNA Not detectedNot detected PANTHER SYSTEM HOLOGIC 01/30/2025 8:01 PM EDTCSUMMA HEALTH LABComment:The Tara species group target includes C. albicans, C. tropicalis, C. parapsilosis, and C. dubliniensis.Tara glabrata RNANot detectedNot detected PANTHER SYSTEM HOLOGIC 01/30/2025 8:01 PM EDVAN [facility] LABTrichomonas vaginalis RNA Not detectedNot detected PANTHER SYSTEM HOLOGIC 01/30/2025 8:01 PM EDVAN [facility] LABSpecimen (Source) Anatomical Location / LateralityCollection Method / VolumeCollection Time Received TimeSwabVAGINAL STRUCTURE / UnknownNon Blood / Ichsfbx5601/30/2025 11:39 AM EDT1 12:06 PM EDT Narrative Authorizing ProviderResult TypeResult StatusTrevor Aurora Douglas DOMICROBIOLOGY Final ResultPerforming OrganizationAddressCity/State/ZIP CodePhone Number [facility] [address] * GONORRHEA/CHLAMYDIA NAAT (01/30/2025 11:39 AM EDT)ComponentValueRef RangeTest MethodAnalysis TimePerformed AtPathologist SignatureNeisseria gonorrhoeae RNA Not detectedNot detected PANTHER SYSTEM HOLOGIC 01/30/2025 8:41 PM EDTCSUMMA HEALTH LABChlamydia trachomatis RNA Not detectedNot detected PANTHER SYSTEM HOLOGIC 01/30/2025 8:41 PM EDTCSUMMA HEALTH LABSpecimen (Source) Anatomical Location / LateralityCollection Method / VolumeCollection Time Received TimeSwabVAGINAL STRUCTURE / UnknownNon Blood / Noyuood1501/30/2025 11:39 AM EDT1 12:06 PM EDT Narrative [facility] - 01/30/2025 8:41 PM EDT This FDA-approved assay has been modified to accept rectal swabs self-collected in a healthcare setting. For self-collected rectal swabs, the test was developed and its performance characteristics determined by the [facility]'s [facility] [place] ([facility]). It has not been cleared or approved by the FDA. [facility] is regulated under CLIA as qualified to perform high-complexity testing. This test is used for clinical purposes. It should not be regarded as investigational or for research. Authorizing ProviderResult TypeResult StatusTrevohenrique Douglas DOMICROBIOLOGY Final ResultPerforming OrganizationAddressCity/State/ZIP CodePhone Number [facility] [address] [place] [address], * VITAMIN B12 (01/30/2025 11:39 AM EDT)ComponentValueRef RangeTest Method Analysis TimePerformed AtPathologist SignatureVitamin [id number] - 1,245 pg/mL 01/30/2025 9:35 PM EDTCSUMMA HEALTH LABSpecimen (Source) Anatomical Location / LateralityCollection Method / VolumeCollection Time Received TimeBloodBLOOD SPECIMEN / UnknownVenipuncture / Mixpzsu8901/30/2025 11:39 AM EDT1 12:06 PM EDT Narrative Authorizing ProviderResult TypeResult StatusTrevohenrique Douglas DOLABORATORYFinal ResultPerforming OrganizationAddressty/State/ZIP CodePhone Number [facility] [address] [place] [address], * THYROID STIMULATING HORMONE (01/30/2025 11:39 AM EDT)ComponentValueRef Range Test MethodAnalysis TimePerformed AtPathologist SignatureTSH3.6000.270 - 4.200 mIU/L1 9:35 PM EDVAN WERT COUNTY [facility] LABComment: If the patient is , TSH reference range varies by gestational period: First Trimester (weeks 9-12): 0.180-2.990 mIU/L Second Trimester: 0.110-3.980 mIU/L Third Trimester: 0.480-4.710 mIU/L Malcolm Molina et al. A Practical Approach for the Verifications and Determination of Site- and Trimester-Specific Reference Intervals for Thyroid Function tests in . Thyroid, 2019:29:3:412-420.Rubio Jade, et al. 2017 Guidelines of the [place] Thyroid Association for the Diagnosis and Management of Thyroid Disease during and the . Thyroid, 2017:27:3:315-389. Specimen (Source)Anatomical Location / LateralityCollection Method / Volume Collection TimeReceived TimeBloodBLOOD SPECIMEN / UnknownVenipuncture / Unknown 01/30/2025 11:39 AM EDT1 12:06 PM EDT Narrative Authorizing ProviderResult TypeResult StatusTrevohenrique Douglas DOLABORATORYFinal ResultPerforming OrganizationAddressCity/State/ZIP CodePhone Number [facility] [address] [place] [address], [place] * (ABNORMAL) IRON AND TIBC (01/30/2025 11:39 AM EDT)ComponentValueRef RangeTest MethodAnalysis TimePerformed AtPathologist KosuputnhHilu9578 - 186 ug/dL 01/30/2025 9:15 PM EDTCSUMMA HEALTH JMSNKII485(H)232 - 386 ug/dL01/30/2025 9:15 PM EDVAN WERT COUNTY [facility] LABTransferrin Pgxoihsrfs61.015.0 - 57.0 %01/30/2025 9:15 PM EDTCSUMMA HEALTH LABSpecimen (Source)Anatomical Location / LateralityCollection Method / Volume Collection TimeReceived TimeBloodBLOOD SPECIMEN / UnknownVenipuncture / Tzfrtev9401/30/2025 11:39 AM EDT1 12:06 PM EDT Narrative Authorizing ProviderResult TypeResult StatusTrevor Aurora Douglas DOLABORATORYFinal ResultPerforming OrganizationAddressCity/State/ZIP CodePhone Number [facility] [address] [place] [address], [place] * FERRITIN (01/30/2025 11:39 AM EDT)ComponentValueRef RangeTest MethodAnalysis TimePerformed AtPathologist LmbkogwpeQgdbqmse50.914.7 - 205.1 ng/mL01/30/2025 9:35 PM EDTCSUMMA HEALTH LABSpecimen (Source)Anatomical Location / LateralityCollection Method / VolumeCollection TimeReceived Time BloodBLOOD SPECIMEN / UnknownVenipuncture / Rmjzcry9501/30/2025 11:39 AM EDT 01/30/2025 12:06 PM EDT Narrative Authorizing ProviderResult TypeResult StatusTrepayton Douglas DOLABORATORYFinal ResultPerforming OrganizationAddressCity/State/ZIP CodePhone Number [facility] [address] [facility] [address] [place] [address], [place] from Last 3 Months Insurance Care Teams Team MemberRelationshipSpecialtyStart DateEnd Date Liam Douglas DO [address] [place] [address] PCP - GeneralFamily Klvqynng84/13/24
--- OUTSIDE RECORDS SUMMARY | 2025-04-15 00:01 | XMS_ITS | Clinical Summary ---
Author Organization [facility] Address [address] [place] [address] Care Team Providers Care Erp Implementation Consultant Name Role Phone Liam Douglas MD Primary [...] InformationValueDate RecordedSex Assigned at BirthNot on fileLegal BagRpzrqi50/30/2024 1:49 PM ESTGender IdentityNot on fileSexual OrientationNot on file Last Filed Vital Signs Vital SignReadingTime TakenCommentsBlood Nocggzou425/8204 9:21 AM EDT Avdzk7754 9:21 AM EDTTemperature--Respiratory Vgbd0735 9:21 AM EDTOxygen Kaeuezmgaq79%08/12/2024 9:21 AM EDTInhaled Oxygen Concentration-- Hpieer48.4 kg (153 lb)08/12/2024 9:21 AM LIFXsfzri907.3 cm (5' 9 )08/12/2024 9:21 AM EDTBody Mass Index22.59008/12/2024 9:21 AM EDT Plan of Treatment Not on file Insurance Care Teams Team MemberRelationshipSpecialty[place] [address] [place] [address] PCP - GeneralFamily Oiajqgip38/30/24 [place] [address] [place] [address] Physician AssistantNeurology08/12/24
[2025-04-15] MEDS: ACETAMINOPHEN 325 MG TABLET 650 MG PO (00:11)
== END 2025-04-15 00:15 | disposition home or self-care (01) ==
LOC: ER 23:57
PROVIDERS: Physician Assistant; Emergency Provider Emergency Medicine; PCP Family Medicine
DX: R30.0 Dysuria (principal); N83.202 Unspecified ovarian cyst, left side
CPT/HCPCS: 81001; 84703; 99283